=== PATIENT | female | born 1980 | race Caucasian/White ===

== ENCOUNTER 2023-06-12 11:39 | Emergency (ER) | payer OTHER, SELFPAY ==
[2023-06-12] VITALS (30 sets, daily range): BP systolic 104–147; BP diastolic 68–96; PULSE 61–105; RESP 10–33; O2SAT 95–98; BMI 45.4
--- NOTE | 2023-06-12 11:58 | ECG_ITS ---
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
--- NOTE | 2023-06-12 11:58 | ED_ITS ---
HPI - Chest Pain General Chief Complaint: Chest Pain Stated Complaint: CHEST PAIN Time Seen by Provider: 06/12/23 11:55 Source: patient Mode of arrival: walk-in History of Present Illness HPI narrative: 43-year-old female presents for chest pain. It's in the middle part of the chest and she's had it continuously for about three hours. It feels like a pressure. No injury or unusual activity and it doesn't seem to radiate. No fever or cough. Related Data Previous Rx's Medication Instructions Recorded esomeprazole magnesium 40 mg 40 mg PO DAILY 28 days #28 caps 06/12/23 capsule,delayed release (Nexium) Allergies Allergy/AdvReac Type Severity Reaction Status Date / Time promethazine [From Phenergan] Allergy Severe Verified 06/12/23 11:51 Review of Systems ROS Narrative A ten point review of systems is negative except as noted above. Exam Narrative Exam Narrative: Nurses note and vital signs reviewed and patient is not hypoxic. General: The patient appears uncomfortable. Skin: Warm, dry, no pallor noted. There is no rash noted. Head: Normocephalic, atraumatic Eye: Normal conjunctiva, no drainage Ears, Nose, Mouth, and Throat: oral mucosa is moist. Nares patent. Cardiovascular: Regular Rate and Rhythm Respiratory: Patient is in no distress, no accessory muscle use, lungs are clear to auscultation, no wheezing, rales or rhonchi Back: non-tender GI: soft and nontender Musculoskeletal: The patient has no evidence of calf tenderness, no pitting edema, symmetrical pulses noted bilaterally Neurological: A&O, normal speech Psychiatric: Cooperative Constitutional Vital Signs, click to edit/add: Last Vital Signs Pulse 105 H 06/12/23 14:10 Resp 20 06/12/23 14:10 BP 134/86 06/12/23 13:30 Pulse Ox 97 06/12/23 13:50 O2 Del Method Room Air 06/12/23 12:01 Course Vital Signs Vital signs: Vital Signs Pulse Rate 87 06/12/23 11:44 Respiratory Rate 18 06/12/23 11:44 Blood Pressure 141/88 06/12/23 11:44 Pulse Oximetry 97 06/12/23 11:44 Oxygen Delivery Method Room Air 06/12/23 11:44 Pulse Rate 105 H 06/12/23 14:10 Respiratory Rate 20 06/12/23 14:10 Blood Pressure 134/86 06/12/23 13:30 Pulse Oximetry 97 06/12/23 13:50 Oxygen Delivery Method Room Air 06/12/23 12:01 MDM - Chest Pain MDM Narrative Medical decision making narrative: her workup including two troponins is negative. I suspect that this may be esophageal and she'll be prescribed Nexium. There is no evidence of acute coronary syndrome and I do not have any clinical suspicion of pulmonary embolism. Treatment diagnosis and follow-up were discussed with the patient. Differential Diagnosis Differential diagnosis: Likely pneumothorax, unstable angina pectoris, atypical chest pain, st elevation myocardial infarction, costochondritis and chest pain Lab Data Attestation: I reviewed the patient's lab results. Labs: Lab Results 06/12/23 06/12/23 Range/Units 11:50 12:52 WBC 6.6 (4.0-11.0) 10^3/uL RBC 4.71 (4.20-5.40) 10^6/uL Hgb 11.6 L (12.0-16.0) g/dL Hct 37.8 (36.0-48.0) % MCV 80.3 L (81.0-99.0) fL MCH 24.6 L (26.7-34.0) pg MCHC 30.7 (29.9-35.2) g/dL RDW 18.1 H (11.0-15.0) % Plt Count 381 (150-450) 10^3/uL MPV 9.4 L (9.5-13.5) fL Neut % (Auto) 63.5 (43.0-75.0) % Lymph % (Auto) 24.3 (20.5-60.0) % [place] % (Auto) 7.3 (1.7-12.0) % Eos % (Auto) 4.0 (0.9-7.0) % Baso % (Auto) 0.6 (0.2-2.0) % Neut # (Auto) 4.2 (1.4-6.5) 10^3/uL Lymph # (Auto) 1.6 (1.2-3.8) 10^3/uL [place] # (Auto) 0.5 (0.3-0.8) 10^3/uL Eos # (Auto) 0.3 (0.0-0.7) 10^3/uL Baso # (Auto) 0.0 (0.0-0.1) 10^3/uL Abs Immat Gran (auto) 0.02 (0.00-0.03) 10^3/uL Imm/Tot Granulo (auto) 0.3 (0.0-0.5) % Sodium 137 (136-145) mmol/L Potassium 3.6 (3.5-5.1) mmol/L Chloride 102 (98-107) mmol/L Carbon Dioxide 26.8 (21.0-32.0) mmol/L Anion Gap 11.8 BUN 9.0 (7.0-18.0) mg/dL Creatinine 0.76 (0.55-1.02) mg/dL Est GFR ( Amer) >60 (>=60) Est GFR (Non-Af Amer) >60 (>=60) BUN/Creatinine Ratio 11.8 Glucose 142 H (74-106) mg/dL Calcium 8.7 (8.5-10.1) mg/dL Troponin I High Sens 7.8 7.2 (4.0-51.3) pg/mL Imaging Data Chest x-ray: Radiologist's impression: Procedure: XR chest 1V EXAM: XR chest 1V HISTORY: . CP . COMPARISON: None. TECHNIQUE: Single view of the chest FINDINGS: Heart and vascularity are unremarkable. Lungs are free of focal infiltrates. EKG leads overlie the chest. IMPRESSION: No acute heart or lung disease identified. Electronically authenticated by: ALLISON MENDEZ Date: 06/12/2023 12:33 ECG Data Attestation: I personally reviewed and interpreted this ECG as follows: (EKG on my interpretation shows normal sinus rhythm with no acute change and a rate of 85.) Heart Score History: Slightly/Non-Suspicious ECG: Normal Age: <45 years Risk Factors: 1 or 2 Risk Factors Troponin: <Normal Limit Total Heart Score Recommendations & Risks:: 1 Discharge Plan Discharge Chief Complaint: Chest Pain Clinical Impression: Chest pain Patient Disposition: Home, Self-Care Time of Disposition Decision: 15:05 Condition: Good Mode of Transportation: Private Vehicle Prescriptions / Home Meds: New esomeprazole magnesium [Nexium] 40 mg capsule,delayed release(DR/EC) 40 mg PO DAILY 28 Days Qty: 28 0RF Instructions: Chest Pain (ED) Stand Alone Forms: Portal Instructions Referrals: Physician,Non-Staff, MD [Primary Care Provider] - 1 week
--- NOTE | 2023-06-12 11:58 | XR_ITS ---
The [address] [address] Patient Name: BEAU CASILLAS MRN: [id number] date: 1980 Sex: F Assigned Patient Location: ER Current Patient Location: ED.MAIN Accession/Order Number: [id number] Exam Date: 06/12/2023 12:21 Report Date: 06/12/2023 12:33 At the request of: NINA RAMAN Procedure: XR chest 1V EXAM: XR chest 1V HISTORY: . CP . COMPARISON: None. TECHNIQUE: Single view of the chest FINDINGS: Heart and vascularity are unremarkable. Lungs are free of focal infiltrates. EKG leads overlie the chest. XR/XR chest 1V IMPRESSION: No acute heart or lung disease identified. Electronically authenticated by: ALLISON MENDEZ Date: 06/12/2023 12:33
[2023-06-12] MEDS: ASPIRIN 81 MG TAB.CHEW 324 MG PO (12:15)
[2023-06-12 12:16] LABS: Basophils Percent Auto 0.6 % (0.2-2.0); Eosinophils Absolute Auto 0.3 10^3/uL (0.0-0.7); Hematocrit 37.8 % (36.0-48.0); Hemoglobin 11.6 g/dL (12.0-16.0); Immature Granulocytes Abs Auto 0.02 10^3/uL (0.00-0.03); Immature Granulocytes Pct Auto 0.3 % (0.0-0.5); Lymphocytes Absolute Auto 1.6 10^3/uL (1.2-3.8); Lymphocytes Percent Auto 24.3 % (20.5-60.0); Mean Corpuscular HGB Conc 30.7 g/dL (29.9-35.2); Mean Corpuscular Hemoglobin 24.6 pg (26.7-34.0); Mean Corpuscular Volume 80.3 fL (81.0-99.0); Mean Platelet Volume 9.4 fL (9.5-13.5); Monocytes Absolute Auto 0.5 10^3/uL (0.3-0.8); Monocytes Percent Auto 7.3 % (1.7-12.0); Neutrophils Absolute Auto 4.2 10^3/uL (1.4-6.5); Neutrophils Percent Auto 63.5 % (43.0-75.0); Platelet Count 381 10^3/uL (150-450); Red Blood Count 4.71 10^6/uL (4.20-5.40); Red Cell Distribution Width 18.1 % (11.0-15.0); White Blood Count 6.6 10^3/uL (4.0-11.0)
[2023-06-12] MEDS: NITROGLYCERIN 0.4 MG BOTTLE PO (12:16)
[2023-06-12 12:35] LABS: Anion Gap 11.8; BUN Creatinine Ratio 11.8; Calcium 8.7 mg/dL (8.5-10.1); Carbon Dioxide 26.8 mmol/L (21.0-32.0); Chloride 102 mmol/L (98-107); Estimated GFR (African America >60 (>=60); Estimated GFR (Non-African Ame >60 (>=60); Glucose 142 mg/dL (74-106); Potassium 3.6 mmol/L (3.5-5.1); Sodium 137 mmol/L (136-145); Troponin I High Sensitivity 7.8 pg/mL (4.0-51.3)
[2023-06-12 13:19] LABS: Troponin I High Sensitivity 7.2 pg/mL (4.0-51.3)
[2023-06-12] MEDS: lidocaine HCL 15 ML, MAG HYDROX/ALUMINUM HYD/SIMETH 30 ML, HYOSCYAMINE SULFATE 0.25 MG PO (13:49)
[2023-06-12] MEDS: KETOROLAC TROMETHAMINE 30 MG/ML VIAL IVP (14:13)
== END 2023-06-12 15:25 | disposition home or self-care (01) ==
PROVIDERS: Emergency Provider Emergency Medicine
DX: R07.9 Chest pain, unspecified (principal)
CPT/HCPCS: 36415; 71045; 80048; 84484; 85025; 93005; 96374; 99285

== ENCOUNTER 2023-07-10 11:33 | Emergency (ER) | payer OTHER, SELFPAY ==
[2023-07-10 11:40] VITALS: BP 152/100; PULSE 84; RESP 18; TEMP 36.8; O2SAT 98; BMI 41.6
--- NOTE | 2023-07-10 14:20 | CT_ITS ---
The [address] [address] Patient Name: BEAU CASILLAS MRN: [facility]:[id number] date: 1980 Sex: F Assigned Patient Location: ER Current Patient Location: ER Accession/Order Number: [id number] Exam Date: 07/10/2023 15:11 Report Date: 07/10/2023 15:33 At the request of: JHONNY GALAN Procedure: CT abdomen pelvis wo con EXAM: CT abdomen pelvis wo con HISTORY: Left flank pain, pelvic pain COMPARISON: None TECHNIQUE: CT abdomen and CT pelvis studies were performed without the use of intravenous contrast. Multiple axial images were obtained. Reformatted coronal and sagittal images were obtained and reviewed. FINDINGS: Abdomen: Visualized lower lung castillo appear grossly unremarkable. Views of the liver and spleen fail to demonstrate evidence of focal mass in either organ. Patient is status post cholecystectomy. Pancreas and adrenal glands appear grossly unremarkable. Stomach appears grossly unremarkable. Bowel loops appear grossly unremarkable. Visualized vascular structures appear grossly intact. No evidence of adenopathy in the retroperitoneum. No obvious renal mass or obstructive uropathy. No evidence of renal or ureteral calculus. Pelvis: No evidence of ureteral or bladder calculus. No evidence of obstructive uropathy. No obvious bladder mass or wall thickening. Uterus appears grossly unremarkable. No obvious adnexal mass. Perirectal fat planes appear grossly intact. Bowel loops appear grossly unremarkable. Visualized vascular structures appear grossly intact. No evidence of adenopathy. The appendix is visualized and appears unremarkable. Mild degenerative changes in the visualized lower dorsal spine and the lumbar spine with more moderate changes at the lumbosacral junction level. CT/CT abdomen pelvis wo con IMPRESSION: CT abdomen and CT pelvis studies fail to demonstrate definite evidence of acute process. Electronically authenticated by: GARETH PAUL Date: 07/10/2023 15:33
--- NOTE | 2023-07-10 14:21 | ED_ITS ---
HPI - General Adult General Chief complaint: Urogenital-Female Stated complaint: ABDOMINAL PAIN Time Seen by Provider: 07/10/23 13:19 Source: patient Mode of arrival: walk-in Limitations: no limitations History of Present Illness HPI narrative: Patient is a 43-year-old female who presents to the emergency department for 3- day history of pelvic pressure, left low back pain. She states she has had some clear vaginal discharge but no vaginal bleeding. She has had a previous tubal ligation. She is not concerned for . She has had no fevers but does report nausea. No vomiting. She has had previous cholecystectomy, she has had pancreatitis in the past. She used ibuprofen yesterday without improvement. Pain is not worse with urination, no hematuria. Related Data Previous Rx's Medication Instructions Recorded esomeprazole magnesium 40 mg 40 mg PO DAILY 28 days #28 caps 06/12/23 capsule,delayed release (Nexium) dicyclomine 20 mg tablet 20 mg PO QID PRN abdominal pain 07/10/23 #12 tabs ketorolac 10 mg tablet 10 mg PO TID PRN pain #10 tabs 07/10/23 ondansetron 4 mg disintegrating 4 mg PO Q6H PRN nausea and 07/10/23 tablet vomiting #12 tabs Allergies Allergy/AdvReac Type Severity Reaction Status Date / Time promethazine [From Phenergan] Allergy Severe Verified 06/12/23 11:51 Review of Systems ROS Constitutional Denies: fever or chills Ears, nose, mouth, and throat Denies: throat pain or nasal congestion Cardiovascular Denies: chest pain Respiratory Denies: shortness of breath or cough Gastrointestinal Reports: abdominal pain and nausea; Denies: vomiting, diarrhea or constipation Genitourinary Reports: pelvic pain; Denies: painful urination or urinary frequency Musculoskeletal Reports: back pain; Denies: neck pain Integumentary/Breast Denies: rash Neurological Denies: headache PFSH PFSH Social History Smoking status: Current every day smoker Exam Narrative Exam Narrative: Gen.: Awake, alert, in no distress Head: Normocephalic, atraumatic ENT: Moist mucous membranes Respiratory: No respiratory distress, lungs clear bilaterally Cardio: Regular rate and rhythm Gastrointestinal: Abdomen is soft, nondistended, obese. Tender to palpation in the mid abdomen and bilateral pelvis, no guarding or rebound, no CVA tenderness Extremities: Moves extremities equally Psych: Normal mood and affect Neuro: No focal neuro deficit Skin: Warm, dry, intact Constitutional Vital Signs, click to edit/add: Last Vital Signs Temp 98.3 F 07/10/23 11:40 Pulse 78 07/10/23 15:45 Resp 16 07/10/23 15:45 BP 152/100 H 07/10/23 11:40 Pulse Ox 98 07/10/23 15:45 O2 Del Method Room Air 07/10/23 15:45 Course Vital Signs Vital signs: Vital Signs Temperature 98.3 F 07/10/23 11:40 Pulse Rate 84 07/10/23 11:40 Respiratory Rate 18 07/10/23 11:40 Blood Pressure 152/100 H 07/10/23 11:40 Pulse Oximetry 98 07/10/23 11:40 Oxygen Delivery Method Room Air 07/10/23 11:40 Temperature 98.3 F 07/10/23 11:40 Pulse Rate 78 07/10/23 15:45 Respiratory Rate 16 07/10/23 15:45 Blood Pressure 152/100 H 07/10/23 11:40 Pulse Oximetry 98 07/10/23 15:45 Oxygen Delivery Method Room Air 07/10/23 15:45 Medical Decision Making MDM Narrative Medical decision making narrative: Pelvic exam was performed at bedside with Chelly Biswas RN at bedside throughout the duration of the exam. Patient with a small amount of clear/white discharge. No cervical motion tenderness or pain out of proportion on exam. She was medicated with IV fluids, morphine, Toradol, Zofran. She continued to report moderate pain and was given additional Dilaudid. CT of the abdomen and pelvis with no evidence of acute abnormalities, pelvic ultrasound also with no evidence of torsion or other abnormalities. Wet prep is negative, the remainder of the pelvic cultures are pending at this time. Patient with stable labs. No evidence of UTI. 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 She is given a referral for the office. Return to the ER if symptoms change or worsen Medical Records Medical records reviewed: Yes I reviewed the patient's medical records Lab Data Lab results reviewed: Yes I reviewed the patient's lab results Labs: Lab Results 07/10/23 07/10/23 Range/Units 14:06 14:28 WBC 7.0 (4.0-11.0) 10^3/uL RBC 5.04 (4.20-5.40) 10^6/uL Hgb 12.0 (12.0-16.0) g/dL Hct 39.7 (36.0-48.0) % MCV 78.8 L (81.0-99.0) fL MCH 23.8 L (26.7-34.0) pg MCHC 30.2 (29.9-35.2) g/dL RDW 16.9 H (11.0-15.0) % Plt Count 380 (150-450) 10^3/uL MPV 9.5 (9.5-13.5) fL Neut % (Auto) 65.2 (43.0-75.0) % Lymph % (Auto) 24.0 (20.5-60.0) % [place] % (Auto) 7.0 (1.7-12.0) % Eos % (Auto) 3.1 (0.9-7.0) % Baso % (Auto) 0.6 (0.2-2.0) % Neut # (Auto) 4.6 (1.4-6.5) 10^3/uL Lymph # (Auto) 1.7 (1.2-3.8) 10^3/uL [place] # (Auto) 0.5 (0.3-0.8) 10^3/uL Eos # (Auto) 0.2 (0.0-0.7) 10^3/uL Baso # (Auto) 0.0 (0.0-0.1) 10^3/uL Abs Immat Gran (auto) 0.01 (0.00-0.03) 10^3/uL Imm/Tot Granulo (auto) 0.1 (0.0-0.5) % Sodium 137 (136-145) mmol/L Potassium 4.0 (3.5-5.1) mmol/L Chloride 102 (98-107) mmol/L Carbon Dioxide 24.3 (21.0-32.0) mmol/L Anion Gap 14.7 BUN 11.0 (7.0-18.0) mg/dL Creatinine 0.72 (0.55-1.02) mg/dL Est GFR ( Amer) >60 (>=60) Est GFR (Non-Af Amer) >60 (>=60) BUN/Creatinine Ratio 15.3 Glucose 127 H (74-106) mg/dL Calcium 8.8 (8.5-10.1) mg/dL Total Bilirubin 0.3 (0.2-1.0) mg/dL AST 23 (15-37) U/L ALT 36 (14-59) U/L Alkaline Phosphatase 68 (46-116) U/L Total Protein 7.7 (6.4-8.2) g/dL Albumin 3.9 (3.4-5.0) g/dL Globulin 3.8 g/dL Albumin/Globulin Ratio 1.0 Lipase 32.0 (16.0-77.0) U/L Urine Color Lt. yellow (YELLOW) Urine Clarity Sl cloudy (CLEAR) Urine pH 6.0 (5.0-9.0) Ur Specific [place] 1.025 (1.005-1.025) Urine Protein Negative (NEG/TRACE) mg/dL Urine Glucose (UA) Negative (NEGATIVE) mg/dL Urine Ketones Negative (NEGATIVE) mg/dL Urine Occult Blood Negative (NEGATIVE) Urine Nitrite Negative (NEGATIVE) Urine Bilirubin Negative (NEGATIVE) Urine Urobilinogen 0.2 (0.2-1.0) EU/dL Ur Leukocyte Esterase Negative (NEGATIVE) Urine RBC 0-2 (0-2) #/HPF Urine WBC 0-2 A (NONE SEEN) #/HPF Ur Squamous Epith Cells Moderate A (NONE/RARE) #/LPF Urine Crystals None seen (None Seen) #/HPF Urine Bacteria Large A (NONE SEEN) #/HPF Urine Casts None seen (NONE SEEN) #/LPF Urine Mucus Trace A (NONE SEEN) Ur Culture Indicated? Yes Urine HCG, Qual Negative (NEGATIVE) Imaging Data CT scan - abdomen: Attestation: I have reviewed the pertinent imaging results. US pelvis: Attestation: I have reviewed the pertinent imaging results. Discharge Plan Discharge Chief Complaint: Urogenital-Female Clinical Impression: Pelvic pain Patient Disposition: Home, Self-Care Time of Disposition Decision: 16:59 Condition: Good Prescriptions / Home Meds: New ketorolac 10 mg tablet 10 mg PO TID PRN (Reason: pain) Qty: 10 0RF dicyclomine 20 mg tablet 20 mg PO QID PRN (Reason: abdominal pain) Qty: 12 0RF ondansetron 4 mg tablet,disintegrating 4 mg PO Q6H PRN (Reason: nausea and vomiting) Qty: 12 0RF No Action esomeprazole magnesium [Nexium] 40 mg capsule,delayed release(DR/EC) 40 mg PO DAILY 28 Days Qty: 28 0RF Instructions: Pelvic Pain in Women (ED) Stand Alone Forms: Portal Instructions Referrals: Gómez Robbins DO [Physician] - As soon as possible Physician,Non-Staff, MD [Primary Care Provider] - 1 week
[2023-07-10 14:27] LABS: Bilirubin Urine NEGATIVE (NEGATIVE); Blood Urine NEGATIVE (NEGATIVE); Clarity Urine SL CLOUDY (CLEAR); Color Urine LT. YELLOW (YELLOW); Glucose Urine UA NEGATIVE (NEGATIVE); Ketones Urine NEGATIVE (NEGATIVE); Leukocyte Esterase Urine NEGATIVE (NEGATIVE); Nitrite Urine NEGATIVE (NEGATIVE); Protein Urine NEGATIVE (NEG/TRACE); Specific Gravity Urine 1.025 (1.005-1.025); Urobilinogen Urine 0.2 EU/dL (0.2-1.0)
[2023-07-10 14:29] LABS: HCG Qualitative Urine* NEGATIVE (NEGATIVE)
[2023-07-10 14:30] LABS: Urine Microscopic Indicated YES
[2023-07-10] MEDS: 0.9 % SODIUM CHLORIDE 1,000 ML 1000 ML IV (14:31)
[2023-07-10] MEDS: KETOROLAC TROMETHAMINE 30 MG/ML VIAL IVP (14:32)
[2023-07-10] MEDS: MORPHINE SULFATE 2 MG/ML SYRINGE 4 MG IV (14:33)
[2023-07-10] MEDS: ONDANSETRON PF 4 MG/2 ML VIAL IV (14:33)
[2023-07-10 14:36] LABS: Bacteria Urine LARGE #/HPF (NONE SEEN); Cast Seen? NONE SEEN #/LPF (NONE SEEN); Crystals Seen? None Seen #/HPF (None Seen); Mucus Urine TRACE (NONE SEEN); RBC Urine 0-2 #/HPF (0-2); Squamous Epithelial Cell Urine MODERATE #/LPF (NONE/RARE); Urine Culture Indicated YES; WBC Urine 0-2 #/HPF (NONE SEEN)
[2023-07-10 14:36] LABS: Basophils Percent Auto 0.6 % (0.2-2.0); Eosinophils Absolute Auto 0.2 10^3/uL (0.0-0.7); Eosinophils Percent Auto 3.1 % (0.9-7.0); Hematocrit 39.7 % (36.0-48.0); Immature Granulocytes Abs Auto 0.01 10^3/uL (0.00-0.03); Immature Granulocytes Pct Auto 0.1 % (0.0-0.5); Lymphocytes Absolute Auto 1.7 10^3/uL (1.2-3.8); Mean Corpuscular HGB Conc 30.2 g/dL (29.9-35.2); Mean Corpuscular Hemoglobin 23.8 pg (26.7-34.0); Mean Corpuscular Volume 78.8 fL (81.0-99.0); Mean Platelet Volume 9.5 fL (9.5-13.5); Monocytes Absolute Auto 0.5 10^3/uL (0.3-0.8); Neutrophils Absolute Auto 4.6 10^3/uL (1.4-6.5); Neutrophils Percent Auto 65.2 % (43.0-75.0); Platelet Count 380 10^3/uL (150-450); Red Blood Count 5.04 10^6/uL (4.20-5.40); Red Cell Distribution Width 16.9 % (11.0-15.0)
[2023-07-10 14:40] VITALS: O2SAT 95
[2023-07-10 15:22] LABS: Alanine Aminotransferase 36 U/L (14-59); Albumin Level 3.9 g/dL (3.4-5.0); Alkaline Phosphatase 68 U/L (46-116); Anion Gap 14.7; Aspartate Amino Transferase 23 U/L (15-37); BUN Creatinine Ratio 15.3; Bilirubin Total 0.3 mg/dL (0.2-1.0); Calcium 8.8 mg/dL (8.5-10.1); Carbon Dioxide 24.3 mmol/L (21.0-32.0); Chloride 102 mmol/L (98-107); Estimated GFR (African America >60 (>=60); Estimated GFR (Non-African Ame >60 (>=60); Globulin 3.8 g/dL; Glucose 127 mg/dL (74-106); Sodium 137 mmol/L (136-145); Total Protein 7.7 g/dL (6.4-8.2)
--- NOTE | 2023-07-10 15:41 | US_ITS ---
[address] [address] Patient Name: BEAU CASILLAS MRN: [id number] date: 1980 Sex: F Assigned Patient Location: ER Current Patient Location: ER Accession/Order Number: [id number] Exam Date: 07/10/2023 15:42 Report Date: 07/10/2023 16:48 At the request of: JHONNY GALAN Procedure: US pelvis transvaginal EXAMINATION: US pelvis transvaginal TECHNIQUE: Transvaginal sonography. Grayscale and color flow Doppler imaging. HISTORY: Pelvic pain. COMPARISON: CT scan 07/10/2023 FINDINGS: Uterus and cervix: Uterus measures 9.1 x 4.5 x 6.0 cm. No acute findings. Multiple nabothian cysts of the cervix measuring up to 14 mm. Endometrium: Thickness measures 11mm. Unremarkable homogeneous appearance of the endometrium. The ovaries not visualized due to overlying loops of small bowel. Adnexa: No adnexal mass lesion. Cul-de-sac: Normal, non or minimal free fluid likely physiologic. US/US pelvis transvaginal IMPRESSION: No acute pelvic pathology visualized. Electronically authenticated by: ZARINA PAYNE Date: 07/10/2023 16:48
[2023-07-10 15:45] VITALS: PULSE 78; RESP 16; O2SAT 98
[2023-07-10] MEDS: HYDROMORPHONE HCL 1 MG/ML CARTRIDGE IV (15:59)
[2023-07-10 17:17] VITALS: BP 124/90; PULSE 75; RESP 14; O2SAT 95
[2023-07-12 12:08] LABS: Neisseria gonorrhoeae, NAA Negative (Negative)
== END 2023-07-10 17:20 | disposition home or self-care (01) ==
PROVIDERS: Physician Assistant; Emergency Provider Emergency Medicine Emergency Medical Services
DX: R10.2 Pelvic and perineal pain (principal); Z90.49 Acquired absence of other specified parts of digestive tract; F17.210 Nicotine dependence, cigarettes, uncomplicated
CPT/HCPCS: 36415; 74176; 76830; 80053; 81001; 83690; 84703; 85025; 87086; 87210; 87491; 87591; 96374; 96375; 99285; J1170

== ENCOUNTER 2024-08-08 07:30 | Emergency (ER) | payer OTHER, SELFPAY ==
[2024-08-08 07:36] VITALS: BP 143/119; PULSE 100; TEMP 36.9; O2SAT 96; BMI 44.6
--- NOTE | 2024-08-08 07:40 | PC.NURSE ---
Pain to right upper and lower jaw, broken tooth to right lower jaw.
[2024-08-08] MEDS: OXYCODONE HCL/ACETAMINOPHEN 5MG/325MG 1 TAB PO (08:00)
--- NOTE | 2024-08-08 08:11 | ED_ITS ---
HPI - Dental/Oral General Chief complaint: Dental/Oral Stated complaint: dental pain Time Seen by Provider: 08/08/24 07:35 Source: patient Mode of arrival: walk-in Limitations: no limitations History of Present Illness HPI Narrative: 44-year-old female to the emergency department chief complaint of dental pain. Started over the last 48 hours. She reports that she has a fractured tooth. She has not reached out to a dentist yet. She denies any fever, sweats, chills. She denies any swelling. She reports the pain is not responding to Tylenol and ibuprofen at home. Teeth map: 2 1. Fractured tooth Related Data Home Medications ?Medication ?Instructions ?Recorded ?Confirmed famotidine 20 mg tablet 20 mg PO DAILY 08/08/24 08/08/24 metformin 500 mg tablet,extended 500 mg PO DAILY 08/08/24 08/08/24 release 24 hr omeprazole 40 mg capsule,delayed 40 mg PO BID 08/08/24 08/08/24 release Previous Rx's ?Medication ?Instructions ?Recorded esomeprazole magnesium 40 mg 40 mg PO DAILY 28 days #28 caps 06/12/23 capsule,delayed release (Nexium) dicyclomine 20 mg tablet 20 mg PO QID PRN abdominal pain 07/10/23 #12 tabs ketorolac 10 mg tablet 10 mg PO TID PRN pain #10 tabs 07/10/23 ondansetron 4 mg disintegrating 4 mg PO Q6H PRN nausea and 07/10/23 tablet vomiting #12 tabs oxycodone-acetaminophen 5 mg-325 1 tab PO Q6H PRN pain 2 days #8 08/08/24 mg tablet (Percocet) tabs penicillin V potassium 500 mg 500 mg PO Q6H 7 days #28 tabs 08/08/24 tablet Allergies Allergy/AdvReac Type Severity Reaction Status Date / Time promethazine (From Phenergan) Allergy Severe Confusion Verified 08/08/24 07:35 Review of Systems 2 ROS0 Status of ROS 10 or more systems reviewed and unremark able except as noted in history and below PFSH PFSH Social History Smoking status: Current every day smoker Little interest or pleasure in doing things: not at all Feeling down, depressed, or hopeless: not at all Exam Narrative Exam Narrative: VITALS: I have reviewed the triage vital signs. GENERAL: Well developed, well appearing adult in no acute distress. NEURO: Alert and oriented. Moves all extremities. Face is symmetric and expressive. EYES: PERRL. No scleral icterus or conjunctival injection. No discharge. HENT: Normocephalic, atraumatic. Hearing is grossly intact. Nares grossly patent and without discharge. Mucous membranes moist. Fractured tooth #30. Some gingival erythema. No discrete abscess. NECK: No JVD. Patient moves neck without restriction. No crepitus. No erythema warmth or swelling. EXTREMITIES: Symmetric muscle bulk. No joint swelling. No clubbing, cyanosis, or deformity. SKIN: Warm and dry. Normal turgor. No rash or lesions appreciated. PSYCH: Mood, affect, and interaction is appropriate to the setting. Constitutional Vital Signs, click to edit/add: Last Vital Signs Temp 98.5 F 08/08/24 07:36 Pulse 100 H 08/08/24 07:36 Resp 18 08/08/24 07:36 BP 143/119 H 08/08/24 07:36 Pulse Ox 96 08/08/24 07:36 O2 Del Method Room Air 08/08/24 07:36 Course Vital Signs Vital signs: Vital Signs Temperature 98.5 F 08/08/24 07:36 Pulse Rate 100 H 08/08/24 07:36 Respiratory Rate 18 08/08/24 07:36 Blood Pressure 143/119 H 08/08/24 07:36 Pulse Oximetry 96 08/08/24 07:36 Oxygen Delivery Method Room Air 08/08/24 07:36 Temperature 98.5 F 08/08/24 07:36 Pulse Rate 100 H 08/08/24 07:36 Respiratory Rate 18 08/08/24 07:36 Blood Pressure 143/119 H 08/08/24 07:36 Pulse Oximetry 96 08/08/24 07:36 Oxygen Delivery Method Room Air 08/08/24 07:36 MDM - Dental/Oral MDM Narrative Medical decision making narrative: 44-year-old female with what appears to be uncomplicated dental fracture with possible infection due to gingival erythema. There is no evidence of a deep space infection. No evidence of [place] angina. Short course of Percocet for pain. OARRS was reviewed. Recommended she continue using ibuprofen at home. Recommended Anbesol OTC. penicillin to cover for infection. She is instructed she needs to follow-up with a dentist for definitive care. Return precautions were discussed. All questions were answered. Patient was discharged home. Medical Records Attestation: I reviewed the patient's medical records. Discharge Plan Discharge Chief Complaint: Dental/Oral Clinical Impression: Fracture of tooth Patient Disposition: Home, Self-Care Time of Disposition Decision: 07:52 Condition: Good Mode of Transportation: Private Vehicle Prescriptions / Home Meds: New penicillin V potassium 500 mg tablet 500 mg PO Q6H 7 Days Qty: 28 0RF oxycodone-acetaminophen [Percocet] 5-325 mg tablet 1 tab PO Q6H PRN (Reason: pain) 2 Days Qty: 8 0RF No Action ketorolac 10 mg tablet 10 mg PO TID PRN (Reason: pain) Qty: 10 0RF dicyclomine 20 mg tablet 20 mg PO QID PRN (Reason: abdominal pain) Qty: 12 0RF ondansetron 4 mg tablet,disintegrating 4 mg PO Q6H PRN (Reason: nausea and vomiting) Qty: 12 0RF esomeprazole magnesium [Nexium] 40 mg capsule,delayed release(DR/EC) 40 mg PO DAILY 28 Days Qty: 28 0RF metformin 500 mg tablet extended release 24 hr 500 mg PO DAILY famotidine 20 mg tablet 20 mg PO DAILY omeprazole 40 mg capsule,delayed release(DR/EC) 40 mg PO BID Print Language: Pashto Referrals: Akilah Bowden, ASSEMBLING MACHINE OPERATOR [Primary Care Provider] - 1 week Discharge Date/Time: 08/08/24 08:09
== END 2024-08-08 08:09 | disposition home or self-care (01) ==
PROVIDERS: Emergency Provider Student in an Organized Health Care Education/Training Program; PCP Nurse Practitioner
DX: S02.5XXA Fracture of tooth (traumatic), initial encounter for closed fracture (principal); X58.XXXA Exposure to other specified factors, initial encounter; F17.200 Nicotine dependence, unspecified, uncomplicated
CPT/HCPCS: 99283

== ENCOUNTER 2024-08-11 21:01 | Emergency (ER) | payer OTHER, SELFPAY ==
--- OUTSIDE RECORDS SUMMARY | 2024-08-11 21:07 | XMS_ITS | CCD ---
Author Organization [facility] Care Team Providers Care Head Refrigeration Engineer Name Role Phone Cinthya RESPIRATORY TECH-SELF DEFENSE INSTRUCTOR, Stuart Primary Care Provider Unavailable Primary Care Provider UnavailYOJANA Moran Attending Unavailable Cinthya RESPIRATORY TECH - AUTOMOTIVE FINANCE MANAGER, Stuart Primary Care Provider ADELINE FLORENTINO Referring Unavailable CINTHYA, SEVEN Primary Care Unavailable ADELINE FLORENTINO Referring Unavailable CINTHYA, SEVEN Primary Care Unavailable ADELINE FLORENTINO Referring Unavailable CINTHYA, SEVEN Primary Care Unavailable GISELA CORDOVA Referring Unavailable CINTHYA, SEVEN Primary Care Unavailable CINTHYA, SEVEN Referring Unavailable CINTHYA, SEVEN Primary Care Unavailable MARLON TILLMAN Admitting Unavailable MARLON TILLMAN Attending Unavailable MARLON TILLMAN Referring Unavailable CINTHYA, SEVEN Primary Care Unavailable MARLON TILLMAN Attending Unavailable MARLON TILLMAN Referring Unavailable CINTHYA, SEVEN Primary Care Unavailable LILY SNELL Attending Unavail able CINTHYA, SEVEN Primary Care Unavailable ENMA PURCELL Attending Unavailable ENMA PURCELL Referring Unavailable CINTHYA, SEVEN Primary Care Unavailable ENMA PURCELL Attending Unavailable NINIKOFINA M Referring Unavailable CINTHYA, SEVEN Primary Care Unavailable CINTHYA, SEVEN Referring Unavailable CINTHYA, SEVEN Primary Care Unavailable CINTHYA, SEVEN Primary Care Unavailable LIUDMILA GARCIA Attending Unavailable CHARLIE YOUNG Attending Unavailable CHARLIE YOUNG Referring Unavailable CINTHYA, SEVEN Primary Care Unavailable CINTHYA, SEVEN Primary Care Unavailable ANGIE TREVIZO Attending Unavailable ANGIE TREVIZO Attending Unavailable ANGIE TREVIZO Referring Unavailable CINTHYA, SEVEN Primary Care Unavailable ANGIE TREVIZO Attending Unavailable JOSELINE ANGIE E Referring Unavailable CINTHYA, SEEVN Primary Care Unavailable ANDRES DUPONT Referring Unavailable CINTHYA, SEVEN Primary Care Unavailable ANDRES DUPONT Referring Unavailable ICNTHYA, SEVEN Primary Care Unavailable CINTHYA, SEVEN Referring Unavailable CINTHYA, SEVEN Primary Care Unavailable CINTHYA, SEVEN Referring Unavailable CINTHYA, SEVEN Primary Care Unavailable EKATERINA VILLEGAS Referring Unavailable CINTHYA, SEVEN Primary Care Unavailable GISELA TEJADA Referring Unavailable CINTHYA, SEVEN Primary Care Unavailable CINTHYA, SEVEN Primary Care Unavailable SUSHILA CHOW Attending Unavailable GISELA TEJADA Attending Unavailable GISELA TEJADA Referring Unavailable CINTHYA, SEVEN Primary Care Unavailable DIANNA, ELVI Referring Unavailable CINTHYA, SEVEN Primary Care Unavailable DIANNA, ELVI Referring Unavailable CINTHYA, SEVEN Primary Care Unavailable JANELL GARDNER Attending Unavailable CINTHYA, SEVEN Referring Unavailable CINTHYA, SEVEN Primary Care Unavailable ENMA PURCELL Attending Unavailable CINTHYA, SEVEN Referring Unavailable CINTHYA, SEVEN Primary Care Unavailable ANDRES DUPONT Attending Unavailable CINTHYA, SEVEN Referring Unavailable CINTHYA, SEVEN Primary Care Unavailable EKATERINA VILLEGAS Attending Unavailable CINTHYA, SEVEN Referring Unavailable CINTHYA, SEVEN Primary Care Unavailable CINTHYA, SEVEN Referring Unavailable CINTHYA, SEVEN Primary Care Unavailable CINTHYA, SEVEN Referring Unavailable CINTHYA, SEVEN Primary Care Unavailable DIANNA ELVI L Attending Unavailable CINTHYA, SEVEN Referring Unavailable CINTHYA, SEVEN Primary Care Unavailable DIANNA, ELVI L Attending Unavailable CINTHYA, SEVEN Referring Unavailable CINTHYA, SEVEN Primary Care Unavailable DIANNA, ELVI L Attending Unavailable CINTHYA, SEVEN Referring Unavailable CINTHYA, SEVEN Primary Care Unavailable Allergies Allergy Classification Reported Allergen(s) Allergy Type Date of Onset Reaction(s) Facility (16 sources) Promethazine; Translations: [PROMETHAZINE] Drug Allergy 03-26-2020 Other [facility] Medications Current Medications Medication Drug Class(es) Dates Sig (Normalized) Sig (Original) [id number] 200 actuat albuterol 0.09 mg/actuat metered dose inhaler (13 sources) beta2-Adrenergic Agonist Start: 12-15-2023 take 2 puff(s) by inhalation every four hours as needed for wheezing albuterol sulfate HFA (PROVENTIL;VENTOL IN;PROAIR) 108 (90 Base) MCG/ACT inhaler Inhale 2 puffs into the lungs every 4 hours as needed for Wheezing 0 12/15/2023 Active Start: 12-14-2023 take 2 puff(s) by in halation every four hours as needed for wheezing albuterol (PROVENTIL HFA;VENTOLIN HFA) 90 mcg/actuation inhaler Indications: Bronchitis with bronchospasm , Moderate persistent asthma without complication Inhale 2 puffs every 4 (four) hours as needed for wheezing. 18 g 11 12/14/2023 Active Start: 08-07-2022 take 2 puff(s) by in halation every four hours for wheezing albuterol 90 mcg/actuation inhaler Inhale 2 puffs every 4 hours if needed for wheezing. 08/07/2022 Active Start: 08-07-2022 take 2 puff(s) by in halation every four hours as needed for wheezing albuterol (PROVENTIL HFA;VENTOLIN HFA) 90 mcg/actuation inhaler Indications: Bronchitis with bronchospasm Inhale 2 puffs every 4 (four) hours as needed for wheezing. 18 g 0 08/07/2022 Active benzonatate 100 mg oral capsule (1 source) Non-narcotic Antitussive Start: 08-07-2022 take 1 capsule by mouth every eight hours benzonatate (TESSALON PERLES) 100 mg capsule Take 1 capsule (100 mg total) by mouth every 8 (eight) hours. 21 capsule 0 08/07/2022 Active bisacodyl 5 mg delayed release oral tablet (1 source) Stimulant Laxative Start: 11-01-2023 BISACODYL 5 MG EC tablet TAKE DIRECTED ON INSTRUCTIONAL SHEET FROM DOCTOR 0 11/01/2023 Active diazePAM 5 mg oral tablet (10 sources) Benzodiazepine Start: 01-26-2024 diazePAM (VALIUM) 5 mg tablet Indications: Claustrophobia One tab 30 minutes before MRI; may repeat up to 2 times for remaining MRI studies. Do not drive after use. 3 tablet 01/26/2024 Active famotidine 20 mg oral tablet (11 sources) Histamine-2 Receptor Antagonist Start: 12-26-2023 famotidine (PEPCID) 20 mg tablet Take 1 tablet (20 mg total) by mouth. 12/26/2023 Active 60 actuat formoterol fumarate 0.005 mg/actuat / mometasone furoate 0.2 mg/actuat metered dose inhaler (11 sources) Corticosteroid, beta2-Adrenergic Agonist Start: 12-14-2023 take 2 puff(s) by inhalation in the morning mometasone-formoter ol (DULERA) 200-5 mcg/actuation inhaler Indications: Moderate persistent asthma without complication Inhale 2 puffs in the morning and 2 puffs before bedtime. 13 g 11 12/14/2023 Active Start: 12-14-2023 take 2 puff(s) by in halation once daily in the morning, then take 2 puff(s) by inhalation once daily at bedtime DULERA 200-5 MCG/ACT inhaler INHALE 2 PUFFS EVERY MORNING AND 2 PUFFS EVERY NIGHT AT BEDTIME 0 12/14/2023 Active mineral oil 0.14 mg/mg / petrolatum 0.749 mg/mg / phenylephrine hydrochloride 0.0025 mg/mg rectal ointment (12 sources) alpha-1 Adrenergic Agonist Start: 10-09-2023 PREPARATION H 0.25-14-74.9 % ointment Insert 1 Application into the rectum every 6 (six) hours as needed. 10/09/2023 Active Start: 10-09-2023 PREPARATION H 0.25-14-74.9 % rectal ointment APPLY RECTALLY DIRECTED TWICE DAILY NEEDED 0 10/09/2023 Active omeprazole 40 mg delayed release oral capsule (12 sources) Proton Pump Inhibitor Start: 11-29-2023 take 1 capsule by mouth twice daily omeprazole (PRILOSEC) 40 MG delayed release capsule Take 1 capsule by mouth 2 times daily 0 11/29/2023 Active Start: 10-19-2023 omeprazole (Pr iLOSEC) 40 mg capsule Take 2 capsules (80 mg total) by mouth. 10/19/2023 Active Start: 10-19-2023 omeprazole (Pr iLOSEC) [address] capsule Take 1 capsule (40 mg) by mouth. 10/19/2023 Active ondansetron 8 mg oral tablet (7 sources) Serotonin-3 Receptor Antagonist take 1 tablet by mouth every eight hours as needed for nausea and vomiting ondansetron (ZOFRAN) 8 mg tablet Take 1 tablet (8 mg total) by mouth every 8 (eight) hours as needed for nausea or vomiting. Active pantoprazole 40 mg delayed release oral tablet (1 source) Proton Pump Inhibitor Start: 11-22-19 take 1 tablet by mouth once daily before mealtime pantoprazole (ProtoNix) 40 mg EC tablet Take 1 tablet (40 mg) by mouth once daily in the morning. Take before meals. 11/21/2022 Active polyethylene glycol 3350 76972 mg powder for oral solution (2 sources) Osmotic Laxative Start: 10-09-19 polyethylene glycol (GLYCOLAX) 17 GM/SCOOP powder PROCHAMBER spacer (10 sources) Start: 12-14-19 PROCHAMBER spacer USE DIRECTED WITH INHALER 12/14/2023 Active psyllium 400 mg oral capsule (12 sources) Start: 11-02-19 REGULOID, PSYLLIUM HUSK, 0.4 gram capsule Take 0.52 g by mouth. 11/02/2023 Active Start: 11-02-2023 take 1 capsule by mo uth once daily in the morning REGULOID 0.52 g capsule Take 1 capsule by mouth every morning 0 11/02/2023 Active Start: 11-01-2023 take 1 capsule by mo uth once daily psyllium (Metamucil) 0.52 gram capsule Take 1 capsule (0.52 g) by mouth once daily. 11/01/2023 Active Spacer/Aero-Holding Chambers ([facility]) BANG (1 source) Start: 12-14-2023 Spacer/Aero-Holding Chambers ([facility]) BANG USE DIRECTED WITH INHALER 0 12/14/2023 Active 7 actuat umeclidinium 0.0625 mg/actuat dry powder inhaler (11 sources) Anticholinergic Start: 12-14-2023 take 1 puff(s) by inhalation in the morning umeclidinium (INCRUSE ELLIPTA) 62.5 mcg/actuation blister with device Indications: Moderate persistent asthma without complication Inhale 1 puff in the morning. 30 each 11 12/14/2023 Active Start: 12-14-2023 take 1 puff(s) by mo uth in the morning INCRUSE ELLIPTA 62.5 MCG/ACT inhaler INHALE 1 PUFF BY MOUTH IN THE MORNING 0 12/14/2023 Active Completed/Discontinued Medications Medication Drug Class(es) Dates Sig (Normalized) Sig (Original) ferrous sulfate 325 mg oral tablet (10 sources) End: 07-09-2024 ferrous sulfate 325 (65 FE) mg tablet Take 1 tablet (325 mg total) by mouth. 07/09/2024 Discontinued gabapentin 300 mg oral capsule (11 sources) Anti-epileptic Agent Start: 05-31-2024 End: 05-31-2025 take 1 capsule by mouth three times daily gabapentin (NEURONTIN) 300 mg capsule Indications: Numbness Take 1 capsule (300 mg total) by mouth 3 (three) times a day. 90 capsule 05/31/2024 07/09/2024 Discontinued Start: 11-17-2023 End: 12-07-2024 gabapentin (NEURONTIN) 100 m g capsule 11/17/2023 05/31/2024 Discontinued Problems Active Problems Problem Classification Problem Date Documented Da te Episodic/Chronic Anxiety disorders (3 sources) Mixed anxiety and depressive disorder; Translations: [Anxiety disorder, unspecified] Onset: 4 06-19-2024 Chronic Asthma (2 sources) Moderate persistent asthma, uncomplicated; Translations: [Moderate persistent asthma, uncomplicated] Onset: 4 Chronic Cataract (3 sources) Cataract of right eye; Translations: [Unspecified cataract] Onset: 4 11-17-2023 Chronic Conditions associated with dizziness or vertigo (3 sources) Vertigo; Translations: [Dizziness and giddiness] Onset: 4 11-17-2023 Episodic Esophageal disorders (2 sources) Gastroesophageal reflux disease without esophagitis; Translations: [Gastro-esophageal reflux disease without esophagitis] Onset: 4 11-17-2023 Chronic Essential hypertension (1 source) Essential hypertension; Translations: [Essential (primary) hypertension] 06-04-2024 Chronic Gastritis and duodenitis (1 source) Chronic superficial gastritis without bleeding; Translations: [Chronic superficial gastritis without bleeding] Onset: 4 Chronic Headache; including migraine (1 source) Other migraine, not intractable, without status migrainosus; Translations: [Other migraine, not intractable, without status migrainosus] Onset: 4 Chronic Headache; including migraine (1 source) Headache; including migraine Onset: 4 Menstrual disorders (1 source) Dysmenorrhea; Translations: [Dysmenorrhea, unspecified] 07-09-2024 Chronic Multiple sclerosis (3 sources) Multiple sclerosis; Translations: [Multiple sclerosis] Onset: 4 11-17-2023 Chronic Nausea and vomiting (1 source) Nausea with vomiting, unspecified; Translations: [Nausea with vomiting, unspecified] Onset: 4 Episodic Other female genital disorders (3 sources) Abnormal uterine bleeding; Translations: [Abnormal uterine and vaginal bleeding, unspecified] 06-12-2024 Chronic Other female genital disorders (2 sources) Other specified abnormal uterine and vaginal bleeding; Translations: [Other specified abnormal uterine and vaginal bleeding] Onset: 4 Chronic Other female genital disorders (2 sources) Abnormal uterine and vaginal bleeding, unspecified; Translations: [Abnormal uterine and vaginal bleeding, unspecified] Onset: 4 Chronic Other female genital disorders (1 source) Vaginal lesion; Translations: [Other specified noninflammatory disorders of vagina] 06-12-2024 Episodic Other female genital disorders (2 sources) Other specified noninflammatory disorders of vagina; Translations: [Other specified noninflammatory disorders of vagina] Onset: 4 Episodic Other gastrointestinal disorders (1 source) Diarrhea, unspecified; Translations: [Diarrhea, unspecified] Onset: Episodic Other gastrointestinal disorders (1 source) Personal history of other diseases of the digestive system; Translations: [Personal history of other diseases of the digestive system] Onset: 4 Episodic Other nervous system disorders (1 source) Polyneuropathy; Translations: [Polyneuropathy, unspecified] 11-17-2023 Chronic Other nervous system disorders (2 sources) Polyneuropathy, unspecified; Translations: [Polyneuropathy, unspecified] Onset: 4 Chronic Other nervous system disorders (1 source) Impairment of balance; Translations: [Other abnormalities of gait and mobility] 11-17-2023 Episodic Other nervous system disorders (2 sources) Other abnormalities of gait and mobility; Translations: [Other abnormalities of gait and mobility] Onset: 4 Episodic Other nervous system disorders (2 sources) Numbness; Translations: [Anesthesia of skin] 05-31-2024 Episodic Other nervous system disorders (2 sources) Anesthesia of skin; Translations: [Anesthesia of skin] Onset: 4 Episodic Other nutritional; endocrine; and metabolic disorders (4 sources) Body mass index 40+ - severely obese; Translations: [Morbid (severe) obesity due to excess calories] Onset: 4 06-19-2024 Chronic Residual codes; unclassified (1 source) Obstructive sleep apnea (adult) (pediatric); Translations: [Obstructive sleep apnea (adult) (pediatric)] Onset: 4 Chronic Screening and history of mental health and substance abuse codes (2 sources) Standardized adult depression screening tool completed ; Translations: [Encounter for screening for depression] Onset: 4 06-19-2024 Episodic Substance-related disorders (1 source) Tobacco smoking behavior - finding; Translations: [Nicotine dependence, unspecified, uncomplicated] 06-04-2024 Chronic Unclassified (1 source) Esophagitis, unspecified without bleeding; Translations: [Esophagitis, unspecified without bleeding] Onset: 4 Unclassified (1 source) GERD/Rectal bleed Onset: 4 Unclassified (1 source) EMB/Endosee Onset: 4 Unclassified (1 source) Gynecologic Exam Onset: 4 Unclassified (1 source) Menstrual Problem Onset: 4 Unclassified (1 source) New Patient Onset: 4 Past or Other Problems Problem Classification Problem Date Documented Da te Episodic/Chronic Abdominal pain (20 sources) Epigastric pain; Translations: [Epigastric pain] Onset: 10-21-2020 10-21-2020 Episodic Acute bronchitis (2 sources) Acute bronchitis, unspecified; Translations: [Acute bronchitis, unspecified] Onset: 12-14-2023 Episodic Administrative/social admission (7 sources) Patient encounter status; Translations: [Persons encountering health services in other specified circumstances] Onset: 10-21-2020 10-21-2020 Episodic Biliary tract disease (20 sources) Biliary colic; Translations: [Calculus of bile duct without cholangitis or cholecystitis without obstruction] Onset: 09-26-2020 09-26-2020 Episodic Gastrointestinal hemorrhage (2 sources) Hemorrhage of rectum and anus; Translations: [Hemorrhage of anus and rectum] Onset: 11-01-2023 11-17-2023 Episodic Hemorrhoids (3 sources) Hemorrhoids; Translations: [Unspecified hemorrhoids] Onset: 11-01-2023 11-17-2023 Episodic Mood disorders (11 sources) Mood disorders Onset: 10-23-2020 Resolved: 06-19-2024 10-23-2020 Nonmalignant breast conditions (1 source) Mastodynia; Translations: [Mastodynia] Onset: 03-05-2024 Episodic Other and unspecified benign neoplasm (1 source) Polyp of colon; Translations: [Polyp of colon] Onset: 11-20-2023 Episodic Other gastrointestinal disorders (1 source) Change in bowel habit; Translations: [Change in bowel habit] Onset: 11-01-2023 Episodic Other injuries and conditions due to external causes (1 source) Foreign body in vagina Onset: 01-03-2024 Episodic Other lower respiratory disease (2 sources) Shortness of breath; Translations: [Shortness of breath] Onset: 12-13-2023 Episodic Other lower respiratory disease (1 source) Shortness of breath Onset: 12-14-2023 Episodic Other screening for suspected conditions (not mental disorders or infectious disease) (5 sources) Magnetic resonance imaging of brain abnormal; Translations: [Other abnormal findings on diagnostic imaging of central nervous system] Onset: 12-13-2023 06-04-2024 Episodic Pancreatic disorders (not diabetes) (12 sources) Pancreatitis; Translations: [Acute pancreatitis without necrosis or infection, unspecified] Onset: 10-09-2020 11-15-2020 Episodic Substance-related disorders (11 sources) Opioid withdrawal; Translations: [Opioid use, unspecified with withdrawal] Onset: 11-15-2020 11-15-2020 Episodic Unclassified (4 sources) Onset: 06-19-2024 06-19-2024 Results Test Name Value Interpretation Reference Range Facility Surgical Pathologyon Surgical Pathology Normal [facility] Comment on above: Result Comment: [facility] [address] [place] [address] Surgical Pathology Consultation Patient Name:RAYA GONZALES:1980 (Age: 44)Gender:FTaken:4Reported:4Physician(s):Elvi Chapman M.D. ([phone])Copy To: Rec. #:[id number]: #[id number] Final Pathologic Diagnosis 1. Endocervix - ECC: - Benign surface endocervical lining with focal squamous metaplasia (no dysplasia or neoplasia) 2. Endometrium - biopsy: - Mildly disordered proliferative endometrium (no polyps, hyperplasia or neoplasia) Report Electronically Signed [facility]/07/26/2024Emanuel Islas MD Interpretation [place] [address], License number: [id number]. Clinical History Dysfunctional uterine bleeding (DUB) N93.8. Gross Description 1. Received in formalin labeled VINNY, ECC is a plastic wired brush with robles-brown soft tissue fragments admixed with hemorrhagic and mucoid material, 2.7 x 1.2 x 0.2 cm in aggregate. The specimen is filtered and entirely submitted in a single cassette. (1, ns, [id number],m2) DM. 2. Received in formalin labeled VINNY, EMB robles-brown soft tissue fragments and base with hemorrhagic and mucoid material, 2.7 x 2.3 x 0.3 cm in aggregate. The specimen is filtered and entirely submitted in a single cassette. (1, ns, [id number],m2) DM. Fixation Time: Tissue removed from patient: 1945 Time specimen placed in formalin: 1945 Cold ischemic time: Less than 1 minute Total fixation time: 14-1/2 hours /07/16/2024NS Specimen(s) Received 1: Endocervical curettings 2: Endometrial biopsy Fee Codes(s): 1; 21537 2; 92895 CBC without diffon Erythrocyte distribution width (RBC) [Ratio] 16.8 % High 11.5 - 15.0 % [facility] Hematocrit (Bld) [Volume fraction] 43.3 % 35 - 47 % [facility] Hemoglobin (Bld) [Mass/Vol] 13.8 g/dL 11.7 - 15.5 g/dL [facility] Interpretation and review of laboratory results Abnormal [facility] MCH (RBC) [Entitic mass] 24 pg Low 27 - 34 pg [facility] MCHC (RBC) [Mass/Vol] 32 g/dL 32 - 36 g/dL [facility] MCV (RBC) [Entitic vol] 75 fL Low 80 - 100 fL [facility] Platelet mean volume (Bld) [Entitic vol] 8 fL 7 - 12 fL [facility] Platelets (Bld) [#/Vol] 382 10*3/uL [facility] RBC (Bld) [#/Vol] 5.77 10*6/uL High [facility] WBC corrected for nucl RBC Auto (Bld) [#/Vol] 9 [facility] COMPLETE BLOOD COUNTon 07-09 Erythrocyte distribution width (RBC) [Ratio] 16.8 % High 11.5-15.0 [facility] Comment on above: Performed By: #### Gino HARRIS CMP, 16272-4, THYR #### [facility] ([id number]) [address], [address] [place] [address] Hematocrit (Bld) [Volume fraction] 43.3 % Normal 35-47 [facility] Comment on above: Performed By: #### Gino HARRIS CMP, 55332-7, THYR #### [facility] ([id number]) [address], [address] [place] [address] Hemoglobin (Bld) [Mass/Vol] 13.8 g/dL Normal 11.7-15.5 [facility] Comment on above: Performed By: #### Gino HARRIS CMP, 66707-3, THYR #### [facility] ([id number]) [address], [address] [place] [address] MCH (RBC) [Entitic mass] 24.0 pg Low 27-34 [facility] Comment on above: Performed By: #### Gino AHRRIS CMP, 03499-7, THYR #### [facility] ([id number]) [address], [address] [place] [address] MCHC (RBC) [Mass/Vol] 32.0 g/dL Normal 32-36 [facility] Comment on above: Performed By: #### Gino HARRIS CMP, 31265-7, THYR #### [facility] ([id number]) [address], [address] [place] [address] MCV (RBC) [Entitic vol] 75 fL Low 80-100 [facility] Comment on above: Performed By: #### Gino HARRIS CMP, 91314-3, THYR #### [facility] ([id number]) [address], [address] [place] [address] Platelet mean volume (Bld) [Entitic vol] 8.0 fL Normal 7-12 [facility] Comment on above: Performed By: #### Gino HARRIS CMP, 40672-1, THYR #### [facility] ([id number]) [address], [address] [place] [address] Platelets (Bld) [#/Vol] 382 10*3/uL Normal 150-450 [facility] Comment on above: Performed By: #### Gino HARRIS CMP, 75358-1, THYR #### [facility] ([id number]) [address], [address] [place] [address] RBC COUNT 5.77 X10E12/L High 3.80-5.20 [facility] Comment on above: Performed By: #### Gino HARRIS CMP, 56329-8, THYR #### [facility] ([id number]) [address] [address] [place] [address] WBC (Bld) [#/Vol] 9.0 10*3/uL Normal 4.0-11.0 [facility] Comment on above: Performed By: #### Gino HRARIS CMP, 06028-0, THYR #### [facility] ([id number]) [address], [address] [place] [address] FREE T4on 12-10-2024 Free T4 [Mass/Vol] 0.88 ng/dL Normal 0.61-1.60 [facility] Comment on above: Result Comment: NEW REFERENCE RANGE FOR PEDIATRIC PATIENTS Performed By: #### Gino HARRIS, [facility], 41426-9, THYR #### [facility] ([id number]) [address] [place] [address] Follicle stimulating hormone on 07-09-2024 Follitropin Qn 6.9 m[IU]/mL mIU/mL [facility] [employer] [facility] Comment on above: NORMAL FEMALE Luteal 1.8-5.1 mIU/mL Follicular 3.8-8.8 mIU/mL Mid Cycle 4.5-22.5 mIU/mL Post [place] 16.7-113.6 mIU/mL Follitropin Qnon 07-09-[address] [facility] [employer] [facility] FOLLICLE STIM HORMONE 6.9 mIU/mL Normal [facility] Comment on above: Result Comment: NORMAL FEMALE Luteal 1.8-5.1 mIU/mL Follicular 3.8-8.8 mIU/mL Mid Cycle 4.5-22.5 mIU/mL Post Sandhy[place] 16.7-113.6 mIU/mL Performed By: #### Gino HARRIS, [facility] [facility], [address]-3, THYR #### [facility] ([id number]) [address], [address] [place] [address] Free T4 [Mass/Vol]on [address] [facility] [employer] [facility] HCG.beta subunit IA 3rd IS Q non 07-09-2024 HCG.beta subunit Qn mIU/mL [facility] [employer] [facility] Comment on above: NEW REFERENCE RANGE WEEKS (SINCE LMP) MIU/mL 3 WEEKS 5 - 50 4 WEEKS 5 - 426 5 WEEKS 18 - 7,340 6 WEEKS 1,080 - 56,500 7-8 WEEKS 7,650 - 229,000 9-12 WEEKS 25,700 - 288,000 13-16 WEEKS 13,300 - 254,000 17-24 WEEKS 4,060 - 165,400 25-40 WEEKS 3,640 - 117,000 MALES AND NON- FEMALES - <5 MIU/mL This test has been FDA approved for use in only. Elevated levels are not necessarily diagnostic for trophoblastic or nontrophoblastic neoplasms. [facility] SERUM B HCG,3RD I.S. <5 Normal [facility] Comment on above: Result Comment: NEW REFERENCE RANGE WEEKS (SINCE LMP) MIU/mL 3 WEEKS 5 - 50 4 WEEKS 5 - 426 5 WEEKS 18 - 7,340 6 WEEKS 1,080 - 56,500 7-8 WEEKS 7,650 - 229,000 9-12 WEEKS 25,700 - 288,000 13-16 WEEKS 13,300 - 254,000 17-24 WEEKS 4,060 - 165,400 25-40 WEEKS 3,640 - 117,000 MALES AND NON- FEMALES - <5 MIU/mL This test has been FDA approved for use in only. Elevated levels are not necessarily diagnostic for trophoblastic or nontrophoblastic neoplasms. Performed By: #### C , [facility], [address]59-1, THYR #### [facility] ([id number]) [address], [address] [place] [address] Luteinizing hormoneon 2023 Lutropin Qn 2.6 m[IU]/mL mIU/mL [facility] Comment on above: NORMAL FEMALE Follicular 2.1-10.9 mIU/mL Mid Cycle 19.2-103 mIU/mL Luteal 1.2-12.9 mIU/mL Post Sandhya 10.9-58.6 mIU/mL Lutropin Qnon 07-09-2024 [facility] LUTEINIZING HORMONE 2.6 mIU/mL Normal [facility] Comment on above: Result Comment: NORMAL FEMALE Follicular 2.1-10.9 mIU/mL Mid Cycle 19.2-103 mIU/mL Luteal 1.2-12.9 mIU/mL Post Collins 10.9-58.6 mIU/mL Performed By: #### Gino HARRIS [facility], [address]75-0, THYR #### [facility] ([id number]) [address] [address], [facility] [address] [place] [address] Prolactinon 07-09-2024 Prolactin [Mass/Vol] 25.4 ng/mL 3.3 - 2 6.7 ng/mL [facility] Prolactin [Mass/Vol]on 07-09 [facility] PROLACTIN 25.4 ng/mL Normal 3.3-26.7 [facility] Comment on above: Performed By: #### Gino HARRIS [facility], [address]3279-1, THYR #### [facility] ([id number]) [address] [address], [facility] [address] [place] [address] T4, freeon 07-09-2024 Free T4 [Mass/Vol] 0.88 ng/dL 0.61 - 1. 60 ng/dL [facility] Comment on above: NEW REFERENCE RANGE FOR PEDIATRIC PATIENTS TSHon 07-09-2024 TSH Qn 3.82 m[IU]/L [facility] Comment on above: NEW REFERENCE RANGE FOR PEDIATRIC PATIENTS TSH Qnon 07-09-2024 [facility] TSH 3.82 uIU/mL Normal 0.49-4.67 [facility] Comment on above: Result Comment: NEW REFERENCE RANGE FOR PEDIATRIC PATIENTS Performed By: #### C LELIA HARRIS, 58434-3, THYR #### [facility] ([id number]) [address] [place] [address] US PELVIC WITH TRANSVAGINALo n 06-24-2024 US PELVIC WITH TRANSVAGINAL US PELVIC WITH TRANSVAGINAL HISTORY: A 44-year-old female with the history of the abnormal uterine bleeding. TECHNIQUE: Multiple real-time images of the pelvis are obtain by using transabdominal and transvaginal approaches. Color Doppler study is performed. COMPARISON: Comparison is made with the CT scan of the abdomen and pelvis of 06/21/2024. FINDINGS: Uterus is anteverted. Uterus measures 8.5 x 4.7 x 6.1 cm. Endometrial echo stripe thickness measures 16 mm. There are nabothian shape in the cervical portion of the uterus. Right ovary measures 2.9 x 1.6 x 1.9 cm. Left ovary measures 2.8 x 1.8 x 1.8 cm. Both ovaries are normal. No evidence of adnexal mass is identified. Color Doppler study reveals presence of the color Doppler flow without evidence of torsion. No free fluid is seen in the cul-de-sac. IMPRESSION: * Normal size uterus with thickened endometrial echo stripe. There are nabothian cysts in the cervical portion of the uterus. * Normal ovaries. No evidence of adnexal mass or ovarian torsion. * No free fluid in the cul-de-sac. Finalized by Martin Valero MD on 06/24/2024 7:12 PM Normal [facility] CBC AND AUTO DIFFon 06-21-20 24 ABSOLUTE BASOPHIL 0.1 X10E9/L Normal 0.0-0.2 [facility] Comment on above: Performed By: #### C LELIA HARRIS, 39179-8, THYR #### [facility] ([id number]) [address] [place] [address] ABSOLUTE NEUTROPHIL 3.7 X10E9/L Normal 1.5-6.6 [facility] Comment on above: Performed By: #### C STEVEN, CMP, 75452-3, THYR #### [facility] ([id number]) [address], [address] [place] [address] Basophils/100 WBC (Bld) 0.9 % Normal [facility] Comment on above: Performed By: #### C BC, CMP, 78791-9, THYR #### [facility] ([id number]) [address], [address] [place] [address] Eosinophils (Bld) [#/Vol] 0.3 10*3/uL Normal 0.0-0.4 [facility] Comment on above: Performed By: #### Gino BC, CMP, 29804-4, THYR #### [facility] ([id number]) [address], [address] [place] [address] Eosinophils/100 WBC (Bld) 4.2 % Normal [facility] Comment on above: Performed By: #### Gino HARRIS, CMP, 14198-2, THYR #### [facility] ([id number]) [address], [address] [place] [address] Erythrocyte distribution width (RBC) [Ratio] 16.0 % High 11.5-15.0 [facility] Comment on above: Performed By: #### Gino BC CMP, 93989-5, THYR #### [facility] ([id number]) [address], [address] [place] [address] Hematocrit (Bld) [Volume fraction] 37.6 % Normal 35-47 [facility] Comment on above: Performed By: #### C BC, CMP, 78458-9, THYR #### [facility] ([id number]) [address], [address] [place] [address] Hemoglobin (Bld) [Mass/Vol] 12.0 g/dL Normal 11.7-15.5 [facility] Comment on above: Performed By: #### C STEVEN [facility], 70749-0, THYR #### [facility] ([id number]) [address], [address] [place] [address] Lymphocytes (Bld) [#/Vol] 1.9 10*3/uL Normal 1.0-3.5 [facility] Comment on above: Performed By: #### Gino HARRIS [facility], 12894-3, THYR #### [facility] ([id number]) [address], [address] [place] [address] Lymphocytes/100 WBC (Bld) 29.8 % Normal [facility] Comment on above: Performed By: #### Gino HARRIS [facility], 58243-6, THYR #### [facility] ([id number]) [address] [place] [address] MCH (RBC) [Entitic mass] 24.2 pg Low 27-34 [facility] Comment on above: Performed By: #### Gino HARRIS [facility], 02276-3, THYR #### [facility] ([id number]) [address], [address] [place] [address] MCHC (RBC) [Mass/Vol] 31.8 g/dL Low 32-36 [facility] Comment on above: Performed By: #### Gino HARRIS [facility], 95268-4, THYR #### [facility] ([id number]) [address] [place] [address] MCV (RBC) [Entitic vol] 76 fL Low 80-100 [facility] Comment on above: Performed By: #### Gino HARRIS CMP, 79388-4, THYR #### [facility] ([id number]) [address], [address] [place] [address] Monocytes (Bld) [#/Vol] 0.5 10*3/uL Normal 0-0.9 [facility] Comment on above: Performed By: #### C STEVEN, CMP, 57155-6, THYR #### [facility] ([id number]) [address], [address] [place] [address] Monocytes/100 WBC (Bld) 7.9 % Normal [facility] Comment on above: Performed By: #### Gino HARRIS, CMP, 14255-7, THYR #### [facility] ([id number]) [address] [place] [address] Neutrophils/100 WBC (Bld) 57.2 % Normal [facility] Comment on above: Performed By: #### Gino HARRIS, CMP, 56106-7, THYR #### [facility] ([id number]) [address], [address] [place] [address] Platelet mean volume (Bld) [Entitic vol] 7.6 fL Normal 7-12 [facility] Comment on above: Performed By: #### Gino HARRIS, CMP, 60043-8, THYR #### [facility] ([id number]) [address], [address] [place] [address] Platelets (Bld) [#/Vol] 408 10*3/uL Normal 150-450 [facility] Comment on above: Performed By: #### Gino HARRIS, CMP, 28308-1, THYR #### [facility] ([id number]) [address], [address] [place] [address] RBC COUNT 4.95 X10E12/L Normal 3.80-5.20 [facility] Comment on above: Performed By: #### Gino BC, CMP, 59572-3, THYR #### [facility] ([id number]) [address], [address] [place] [address] WBC (Bld) [#/Vol] 6.4 10*3/uL Normal 4.0-11.0 [facility] Comment on above: Performed By: #### C BC, CMP, 30160-8, THYR #### [facility] ([id number]) [address], [address] [place] [address] COMPREHENSIVE METABOLIC PANE Toribio 06-21-2024 Albumin [Mass/Vol] 4.1 g/dL Normal 3.2-5.3 [facility] Comment on above: Performed By: #### Gino HARRIS CMP, 13027-2, THYR #### [facility] ([id number]) [address], [address] [place] [address] ALP [Catalytic activity/Vol] 71 U/L Normal 39-130 [facility] Comment on above: Performed By: #### Gino HARRIS CMP, 23062-5, THYR #### [facility] ([id number]) [address], [address] [place] [address] ALT [Catalytic activity/Vol] 44 U/L High 0-31 [facility] Comment on above: Performed By: #### Gino HARRIS CMP, 93377-4, THYR #### [facility] ([id number]) [address], [address] [place] [address] Anion gap [Moles/Vol] 9 mmol/L Normal 5-15 [facility] Comment on above: Performed By: #### Gino HARRIS CMP, 34527-6, THYR #### [facility] ([id number]) [address], [address] [place] [address] AST [Catalytic activity/Vol] 34 U/L Normal 0-41 [facility] Comment on above: Performed By: #### Gino HARRIS CMP, 16959-6, THYR #### [facility] ([id number]) [address], [address] [place] [address] Bilirubin [Mass/Vol] 0.5 mg/dL Normal 0.3-1.2 [facility] Comment on above: Performed By: #### Gino HARRIS CMP, 31735-0, THYR #### [facility] ([id number]) [address], [address] [place] [address] Calcium [Mass/Vol] 9.1 mg/dL Normal 8.5-10.5 [facility] Comment on above: Performed By: #### Gino HARRIS [facility], 22983-0, THYR #### [facility] ([id number]) [address], [address] [place] [address] Chloride [Moles/Vol] 103 mmol/L Normal 98-109 [facility] Comment on above: Performed By: #### Gino HARRIS [facility], 39695-2, THYR #### [facility] ([id number]) [address], [address] [place] [address] CO2 [Moles/Vol] 24 mmol/L Normal 22-32 [facility] Comment on above: Performed By: #### Gino HARRIS [facility], 78329-8, THYR #### [facility] ([id number]) [address], [address] [place] [address] Creatinine [Mass/Vol] 0.68 mg/dL Normal 0.40-1.00 [facility] Comment on above: Result Comment: METH OD TRACEABLE TO IDMS STANDARD Performed By: #### Gino HARRIS CMP, 16025-6, THYR #### [facility] ([id number]) [address], [address] [place] [address] eGFR (CKD-EPI) NON-RACE DEPENDENT >90 Normal >59 [facility] Comment on above: Result Comment: Reported eGFR is based on the CKD-EPI 2020 equation that does not use a race coefficient. Performed By: #### Gino HARRIS CMP, 85457-7, THYR #### [facility] ([id number]) [address], [address] [place] [address] Glucose [Mass/Vol] 108 mg/dL High 65-99 [facility] Comment on above: Performed By: #### Gino HARRIS [facility], 88113-2, THYR #### [facility] ([id number]) [address], [address] [place] [address] Potassium [Moles/Vol] 3.8 mmol/L Normal 3.5-5.0 [facility] Comment on above: Performed By: #### Gino HARRIS [facility], 01007-7, THYR #### [facility] ([id number]) [address] [place] [address] Protein [Mass/Vol] 7.5 g/dL Normal 6.0-8.0 [facility] Comment on above: Performed By: #### Gino HARRIS [facility], 85077-7, THYR #### [facility] ([id number]) [address], [address] [place] [address] Sodium [Moles/Vol] 136 mmol/L Normal 134-146 [facility] Comment on above: Performed By: #### Gino HARRIS [facility], 69876-8, THYR #### [facility] ([id number]) [address], [address] [place] [address] Urea nitrogen [Mass/Vol] 10 mg/dL Normal 5-23 [facility] Comment on above: Performed By: #### Gino HARRIS [facility], 10734-2, THYR #### [facility] ([id number]) [address] [place] [address] CT ABDOMEN AND PELVIS W CONT on 06-21-2024 CT ABDOMEN AND PELVIS W CONT CT ABDOMEN AND PELVIS W CONT CT ABDOMEN AND PELVIS WITH CONTRAST CLINICAL INFORMATION: Acute severe pancreatitis, nausea and vomiting, diffuse abdominal pain TECHNIQUE: Multidetector spiral CT scan of the abdomen and pelvis was performed following the uneventful administration of nonionic intravenous contrast. Coronal and sagittal reformatted images were obtained and reviewed. Automated exposure control was utilized. Following the intravenous injection of 100 cc of Omnipaque 300, a CT of the abdomen and pelvis and sagittal and coronal reformats obtained. All CT scans at this facility use dose modulation, iterative reconstruction, and/or weight based dosing when appropriate to reduce radiation dose to as low as reasonably achievable. COMPARISON: CT dated 01/03/2024. FINDINGS: Hepatic steatosis. Status post cholecystectomy. No focal lesion seen in the liver, spleen, adrenal glands, pancreas, or kidneys. No dilated bowel loops or free fluid. IMPRESSION: 1. Hepatic steatosis. 2. Status post cholecystectomy. 3. No acute abnormality seen. Finalized by Parish Bradley MD on 06/21/2024 3:20 PM Normal [facility] LIPASEon 06-21-2024 Lipase [Catalytic activity/Vol] 41 U/L High 17-40 [facility] Comment on above: Performed By: #### Gino HARRIS CMP, 47302-4, THYR #### [facility] ([id number]) [address], [address] [place] [address] PROTIME AND INRon 06-21-2024 INR Coag (PPP) [Relative time] 1.0 {INR} Normal 0.8-1.1 [facility] Comment on above: Performed By: #### Gino HARRIS CMP, 50447-4, THYR #### [facility] ([id number]) [address], [address] [place] [address] PT Coag (PPP) [Time] 11.6 s Normal 9.8-13.2 [facility] Comment on above: Result Comment: NEW REFERENCE RANGE Performed By: #### Gino HARRIS CMP, 60103-5, THYR #### [facility] ([id number]) [address], [address] [place] [address] URN MACROSCOPIC NURon 2023 BILIRUBIN JOURDAN Negative Normal NEG [facility] Comment on above: Performed By: #### Gino HARRIS CMP, 72193-8, THYR #### [facility] ([id number]) [address], [address] [place] [address] BLOOD/HGB JOURDAN Negative Normal NEG [facility] Comment on above: Performed By: #### Gino HARRIS [facility], 28748-9, THYR #### [facility] ([id number]) [address] [place] [address] GLUCOSE JOURDAN Negative Normal NEG [facility] Comment on above: Performed By: #### Gino HARRIS [facility], 15535-8, THYR #### [facility] ([id number]) [address] [place] [address] KETONES JOURDAN Negative Normal NEG [facility] Comment on above: Performed By: #### Gino HARRIS [facility], 16296-3, THYR #### [facility] ([id number]) [address] [place] [address] LEUKOCYTE ESTERASE JOURDAN Negative Normal NEG [facility] Comment on above: Performed By: #### Gino HARRIS [facility], 19869-5, THYR #### [facility] ([id number]) [address] [place] [address] NITRITE JOURDAN Negative Normal NEG [facility] Comment on above: Performed By: #### Gino HARRIS [facility], 93415-6, THYR #### [facility] ([id number]) [address] [place] [address] PH JOURDAN 6.0 Normal 5.0-8.5 [facility] Comment on above: Performed By: #### Gino HARRIS [facility], 00928-1, THYR #### [facility] ([id number]) [address] [place] [address] PROTEIN JOURDAN Negative Normal NEG [facility] Comment on above: Performed By: #### Gino HARRIS CMP, 41913-3, THYR #### [facility] ([id number]) [address] [place] [address] SPECIFIC GRAVITY JOURDAN 1.010 Normal 1.003-1.035 [facility] Comment on above: Performed By: #### C STEVEN, [facility], 82610-5, THYR #### [facility] ([id number]) [address] [place] [address] [address] [place] [address] UROBILINOGEN JOURDAN 0.2 eu/dL Normal <1.1 [facility] Comment on above: Performed By: #### C STEVEN, [facility], 66709-8, THYR #### [facility] ([id number]) [address] [place] [address] [address] [place] [address] aPTT Coag (PPP) [Time]on aPTT Coag (Bld) [Time] 34 s Normal 26-37 [facility] Comment on above: Result Comment: NEW REFERENCE RANGE Performed By: #### C STEVEN [facility], 84464-0, THYR #### [facility] ([id number]) [address] [place] [address] [address] [place] [address] Cytologyon 06-19-2024 Cytology Normal [facility] Comment on above: Result Comment: [facility] [address] [place] [address] Gynecologic Cytology Consultation Patient Name:RAYA GONZALES:1980 (Age: 44)Gender:FTaken:4Reported:4Physician(s):Gisela Cordova, RESPIRATORY TECH-[facility] ([phone])Copy To: Rec. #:[id number]: #[id number] Final Cytologic Interpretation ThinPrep Pap Test (Cervical): Satisfactory for evaluation. A transformation zone component is not identified via imaging-assisted review, using [employer] Thin Prep Imaging System, within 22 microscopic castillo of view. NEGATIVE FOR INTRAEPITHELIAL LESION OR MALIGNANCY. [facility] [place]07[place]05/2024 [facility] [address], License number: [id number]. Electronically Signed Out By MARIAH Loving(ASCP) Date of Last Menstrual Period: 05/14/24 Other Clinical Conditions: Abnormal Bleeding Z01.419 Clerk Entry Level exam wo/abn findings Source of Specimen ThinPrep Pap Test (Cervical) Thin Prep Pap (TOOL DESIGN DRAFTSPERSON) Fee Code(s): G0145 The Pap test is a screening test with an inherent, but low, probability of error. The Pap test is primarily effective for the diagnosis and prevention of squamous cell carcinoma. Regular screening is critical for prevention. ThinPrep liquid-based slides, which meet the Promotional Marketing Agent criteria for automated screening, have been screened by the ThinPrep Imaging System (as of 04/16/07) along with an additional manual rescreening by a entertainment director and, if indicated, by a pathologist. HIGH RISK HPV W/GENOon 06-19 HPV 31+33+35+39+45+51+52+ 56+58+59+66+68 DNA JOSELUIS+probe Ql (Cvx) HPV SPECIMEN TYPE ThinPrep HPV 16 Negative (qualifier value) HPV 18 Negative (qualifier value) OTHER HIGH RISK HPV Negative (qualifier value) HPV types 31,33,35,39,45,52,56,5 8,59,66 and 68 DNA were undetectable. Normal [facility] Comment on above: Performed By: #### 7 1431-1 ####[facility] ([id number])[address] [place] [id number] [place] [address] LAB ([id number])[facility], [address] [place] [address] Alpha 1 antitrypsin Nephelom etry [Mass/Vol]on 06-17-2024 ALPHA 1 ANTITRYPSIN 193 mg/dL Normal 83-199 [facility] Comment on above: Performed By: #### [place], 18[address]-6, HA1C, 6771-0, IMGB, THYR, 2132-9, 80529-0, 76664-8 ####[facility] ([id number])[address] [place] [address], [address] [address]#### 48931-9 ####[facility] ([id number])[address] [place] [address] Alpha 1 antitrypsin phenotyp ing [Interp]on 06-17-2024 Lacda-5-Xfoipsknxfa Phenotype MM Normal [facility] Comment on above: Result Comment: NOTE A single M isoform is detected. In the context of a normal vtefj-5-zlzxaypvakk concentration, this is consistent with an MM phenotype. ADDITIONAL INFORMATION Method: Isoelectric Focusing, This assay identifies the phenotype of the circulating wrjxf-0-nlqzrvjykao (A1A) protein. If the patient is on replacement therapy or has been recently transfused, the phenotype will detect patient and replacement or transfused plasma A1A protein. This test also cannot detect a null allele which could be responsible for an A1A deficiency. Performed By: #### C STEVEN, 60071-6, HA1C, 6771-0, IMGB, THYR, 213-9, 88046-2, 79416-0 ####[facility] ([id number])[address] [address], [address] [address]#### 02515-5 ####[facility] ([id number])[address] [place] [id number] Gtapi-6-Nziqvcjmerf, S 180 mg/dL Normal 100 - 190 [facility] Comment on above: Result Comment: NOTE ADDITIONAL INFORMATION Method: Nephelometry Test Performed by: [facility] [facility], [place] [address] [place] [address] Manager Engine: Arabella Trejo Ph.D.; CLIA# [id number] Performed By: #### Gino BC, 00977-8, HA1C, 6771-0, IMGB, THYR, 2132-03, 66849-6, 54349-9 ####[facility] ([id number])[address] [place] [address]#### 26917-0 ####[facility] ([id number])[address] [place] [address]01 B. burgdorferi IgG+IgM Qn (S )on 06-17-2024 LYME TOTAL <0.2 Normal <0.9 [facility] Comment on above: Result Comment: Interpretation-------- <0.9 Negative 0.9 - 1.0 Equivocal >1.0 Positive No serological evidence of Borrelia infection.A non-reactive result does not exclude the possibility of Borrelia infection and cannot exclude early infection with B.burgdorferi. If Lyme borreliosis is suspected, a second sample should be collected and tested 2-4 weeks later. Performed By: #### C STEVEN, 87016-8, HA1C, 71-0, IMGB, THYR, 2132-03, 37521-5, 83263-6 ####[facility] ([id number])[address] [place] [address]#### 56958-5 ####[facility] ([id number])[address] [place] [address] 96865 COMPLETE BLOOD COUNTon 06-17 Erythrocyte distribution width (RBC) [Ratio] 16.2 % High 11.5-15.0 [facility] Comment on above: Performed By: #### C STEVEN, 20091-9, HA1C, 71-0, IMGB, THYR, 2132-03, 04594-2, 00952-1 ####[facility] ([id number])[address] [place] [address]#### 93187-0 ####[facility] ([id number])[address] [place] [address] 24236 Hematocrit (Bld) [Volume fraction] 41.8 % Normal 35-47 [facility] Comment on above: Performed By: #### C BC, 53504-4, HA1C, 6771-0, IMGB, THYR, 2132-9, 25504-8, 53537-6 ####[facility] ([id number])[address], [address] [place] [address]#### 75261-1 ####[facility] ([id number])[address] [place] [address] 96141 Hemoglobin (Bld) [Mass/Vol] 13.2 g/dL Normal 11.7-15.5 [facility] Comment on above: Performed By: #### C BC, 45755-8, HA1C, 6771-0, IMGB, THYR, 213-9, 72191-1, 90110-6 ####[facility] ([id number])[address], [address] [place] [address]#### 09018-0 ####[facility] ([id number])[address] [place] [address] 25666 MCH (RBC) [Entitic mass] 24.2 pg Low 27-34 [facility] Comment on above: Performed By: #### C BC, 35328-4, HA1C, 6771-0, IMGB, THYR, 2132-9, 27269-1, 73008-8 ####[facility] ([id number])[address], [address] [place] [address] 8[address]#### 36705-8 ####[facility] ([id number])[address] [place] [address] 89310 MCHC (RBC) [Mass/Vol] 31.6 g/dL Low 32-36 [facility] Comment on above: Performed By: #### C BC, 80337-2, HA1C, 6771-0, IMGB, THYR, 213-9, 68791-2, 88563-0 ####[facility] ([id number])[address], [address] [address]#### 92421-7 ####[facility] ([id number])[address] [place] [address] 38600 MCV (RBC) [Entitic vol] 77 fL Low 80-100 [facility] Comment on above: Performed By: #### C STEVEN, 40313-9, HA1C, 6771-0, IMGB, THYR, 2131-, 96886-2, 49748-6 ####[facility] ([id number])[address] [facility], [address] [address]#### 20547-3 ####[facility] ([id number])[address] [place] [address] 06720 Platelet mean volume (Bld) [Entitic vol] 8.4 fL Normal 7-12 [facility] Comment on above: Performed By: #### Gino HARRIS, 45869-3, HA1C, 6771-0, IMGB, THYR, 2131-, 62228-8, 56658-0 ####[facility] ([id number])[address] [address]#### 57667-0 ####[facility] ([id number])[address] [place] [address] 84606 Platelets (Bld) [#/Vol] 460 10*3/uL High 150-450 [facility] Comment on above: Performed By: #### Gino HARRIS, 66502-6, HA1C, 6771-0, IMGB, THYR, 2131-9, 93653-6, 88293-6 ####[facility] ([id number])[address], [address] [place] [address] 9[address]#### 33865-4 ####[facility] ([id number])[address] [place] [address] 70504 RBC COUNT 5.45 X10E12/L High 3.80-5.20 [facility] Comment on above: Performed By: #### C BC, 52446-0, HA1C, 6771-0, IMGB, THYR, 2131-9, 11703-5, 33701-6 ####[facility] ([id number])[address], [address] [place] [address] 85707#### 05311-5 ####[facility] ([id number])[address] [place] [address] 74862 WBC (Bld) [#/Vol] 12.1 10*3/uL High 4.0-11.0 [facility] Comment on above: Performed By: #### C BC, 91932-8, HA1C, 6771-0, IMGB, THYR, 2131-, 42605-2, 28786-5 ####[facility] ([id number])[address] [address]#### 08166-8 ####[facility] ([id number])[address] [place] [address] 99610 EOSINOPHIL, TOTALon 11-18-20 24 Eosinophils (Bld) [#/Vol] 0.2 10*3/uL Normal 0.0-0.4 [facility] Comment on above: Performed By: #### C BC, 86086-3, HA1C, 6771-0, IMGB, THYR, 2131-9, 87829-2, 78273-6 ####[facility] ([id number])[address], [address] [place] [address] 59479#### 60938-9 ####[facility] ([id number])[address] [place] [address] 06066 HGB A1C (GLYCO-HGB)on 2023 Glucose [Mass/Vol] 169 mg/dL Normal [facility] Comment on above: Performed By: #### C BC, 21945-0, HA1C, 6771-0, IMGB, THYR, 9, 61671-7, 82641-7 ####[facility] ([id number])[address] [address], [address] [address]#### 21078-8 ####[facility] ([id number])[address] [place] [address] 34746 HbA1c (Bld) [Mass fraction] 7.5 % High 4.4-5.6 [facility] Comment on above: Result Comment: NOTE ADA Guidelines Result HgbA1c Normal : less than 5.7 % Prediabetes : 5.7 % to 6.4 % Diabetes : > 6.4 % Use with caution in patients with abnormal hemoglobin variants as the half-life of red blood cells and in vivo glycation rates are affected. Performed By: #### C BC, 44896-7, HA1C, 6771-0, IMGB, THYR, 2132-03, 87071-1, 37625-0 ####[facility] ([id number])[address] [place] [address], [address] [place] [address] 36724#### 51903-4 ####[facility] ([id number])[address] [place] [address] 55728 IMMUNOGLOBULINSon 06-17-2024 IgA [Mass/Vol] 181 mg/dL Normal 68-378 [facility] Comment on above: Performed By: #### C BC, 93089-2, HA1C, 6771-0, IMGB, THYR, 2131-9, 63697-0, 32649-9 ####[facility] ([id number])[address] [address]#### 80910-0 ####[facility] ([id number])[address] [place] [address] 24896 IgG [Mass/Vol] 672 mg/dL Normal 635-1741 [facility] Comment on above: Performed By: #### C BC, 94051-5, HA1C, 6771-0, IMGB, THYR, 2131-9, 62752-5, 03835-3 ####[facility] ([id number])[address] [address]#### 56122-8 ####[facility] ([id number])[address] [place] [address] 67265 IgM [Mass/Vol] 165 mg/dL Normal 45-281 [facility] Comment on above: Performed By: #### C BC, 63066-9, HA1C, 6771-0, IMGB, THYR, 2132-03, 87855-9, 34386-0 ####[facility] ([id number])[address] [address]#### 30985-0 ####[facility] ([id number])[address] [place] [address] 88839 Nuclear Ab IA Ql (S)on 06-17 RODRIGO Screen w/reflex Negative Normal NEG [facility] Comment on above: Result Comment: Testing performed using multiplex flow immunoassay. Eleven different antigens associated with systemic autoimmune diseases (dsDNA,Sm,Sm/GREENHOUSE GROWER,GREENHOUSE GROWER,Chromatin, SSA,SSB,Maria Guadalupe-1,Scl70,Ribo P,Centromere B) are included in this screening test. Performed By: #### C BC, 26525-5, HA1C, 6771-0, IMGB, THYR, 2132-03, 51450-3, 93211-1 ####[facility] ([id number])[address], [address], [place] [address]#### 67613-2 ####[facility] ([id number])[address] [place] [address] 38691 RESPIRATORY PANELon 06-17-20 ALTERNARIA ALTERNATA <0.10 Normal <0.10 [facility] Comment on above: Result Comment: Clas s 0: Normal Performed By: #### R AP ####[facility] ([id number])[address], [address] [place] [address] 24771 ASPERGILLUS FUMIGATUS <0.10 Normal <0.10 [facility] Comment on above: Result Comment: Clas s 0: Normal Performed By: #### R AP ####[facility] ([id number])[address], [address], [place] [address] BERMUDA GRASS <0.10 Normal <0.10 [facility] Comment on above: Result Comment: Clas s 0: Normal Performed By: #### R AP ####[facility] ([id number])[address], [address], [place] [address] BOX ELDER <0.10 Normal <0.10 [facility] Comment on above: Result Comment: Clas s 0: Normal Performed By: #### R AP ####[facility] ([id number])[address], [address], [place] [address] CAT DANDER <0.10 Normal <0.10 [facility] Comment on above: Result Comment: Clas s 0: Normal Performed By: #### R AP ####[facility] ([id number])[address], [address] [address] CLADOSPORIUM HERB <0.10 Normal <0.10 [facility] Comment on above: Result Comment: Clas s 0: Normal Performed By: #### R AP ####[facility] ([id number])[address], [address], [place] [address] COCKLEBUR <0.10 Normal <0.10 [facility] Comment on above: Result Comment: Clas s 0: Normal Performed By: #### R AP ####[facility] ([id number])[address], [address], [place] [address] COCKROACH 0.14 kU/L High <0.10 [facility] Comment on above: Result Comment: Clas s 0/1: Low level of Allergy, ongoing sensitization Performed By: #### R AP ####[facility] ([id number])[address], [address] [address] COMMON PIGWEED <0.10 Normal <0.10 [facility] Comment on above: Result Comment: Clas s 0: Normal Performed By: #### R AP ####[facility] ([id number])[address], [address], [place] [address] COMMON RAGWEED <0.10 Normal <0.10 [facility] Comment on above: Result Comment: Clas s 0: Normal Performed By: #### R AP ####[facility] ([id number])[address], [address], [place] [address] COMMON SILVER BIRCH <0.10 Normal <0.10 [facility] Comment on above: Result Comment: Clas s 0: Normal Performed By: #### R AP ####[facility] ([id number])[address], [address], [place] [address] COTTONWOOD <0.10 Normal <0.10 [facility] Comment on above: Result Comment: Clas s 0: Normal Performed By: #### R AP ####[facility] ([id number])[address], [address] [address] DERMATOPH FARINAE <0.10 Normal <0.10 [facility] Comment on above: Result Comment: Clas s 0: Normal Performed By: #### R AP ####[facility] ([id number])[address], [address] [address] DERMATOPH PTERONYSS <0.10 Normal <0.10 [facility] Comment on above: Result Comment: Clas s 0: Normal Performed By: #### R AP ####[facility] ([id number])[address], [address], [place] [address] DOG DANDER <0.10 Normal <0.10 [facility] Comment on above: Result Comment: Clas s 0: Normal Performed By: #### R AP ####[facility] ([id number])[address] [address], [place] [address] ELM <0.10 Normal <0.10 [facility] Comment on above: Result Comment: Clas s 0: Normal Performed By: #### R AP ####[facility] ([id number])[address], [address], [place] [address] GOOSEFOOT LITTLE QTR <0.10 Normal <0.10 [facility] Comment on above: Result Comment: Clas s 0: Normal Performed By: #### R AP ####[facility] ([id number])[address], [address] [address] IGE 31 IU/mL Normal 0-165 [facility] Comment on above: Performed By: #### R AP ####[facility] ([id number])[address], [address] [address] RUSS GRASS <0.10 Normal <0.10 [facility] Comment on above: Result Comment: Clas s 0: Normal Performed By: #### R AP ####[facility] ([id number])[address], [address], [place] [address] MAPLE LEAF SYCAMORE <0.10 Normal <0.10 [facility] Comment on above: Result Comment: Clas s 0: Normal Performed By: #### R AP ####[facility] ([id number])[address], [address], [place] [address] [place] GURPREET <0.10 Normal <0.10 [facility] Comment on above: Result Comment: Clas s 0: Normal Performed By: #### R AP ####[facility] ([id number])[address], [address] [address] MOUNTAIN JUNIPER <0.10 Normal <0.10 [facility] Comment on above: Result Comment: Clas s 0: Normal Performed By: #### R AP ####[facility] ([id number])[address], [address], [place] [address] MOUSE URINE PROTEINS <0.10 Normal <0.10 [facility] Comment on above: Result Comment: Clas s 0: Normal Performed By: #### R AP ####[facility] ([id number])[address], [address] [address] MUGWORT <0.10 Normal <0.10 [facility] Comment on above: Result Comment: Clas s 0: Normal Performed By: #### R AP ####[facility] ([id number])[address], [address] [address] MULBERRY TREE <0.10 Normal <0.10 [facility] Comment on above: Result Comment: Clas s 0: Normal Performed By: #### R AP ####[facility] ([id number])[address], [address], [place] [address] NETTLE <0.10 Normal <0.10 [facility] Comment on above: Result Comment: Clas s 0: Normal Performed By: #### R AP ####[facility] ([id number])[address], [address] [address] OAK <0.10 Normal <0.10 [facility] Comment on above: Result Comment: Clas s 0: Normal Performed By: #### R AP ####[facility] ([id number])[address], [address] [address] PECAN HICKORY TREE <0.10 Normal <0.10 [facility] Comment on above: Result Comment: Clas s 0: Normal Performed By: #### R AP ####[facility] ([id number])[address], [address], [place] [address] PENICILLIUM CHRYSOGENUM <0.10 Normal <0.10 [facility] Comment on above: Result Comment: Clas s 0: Normal Performed By: #### R AP ####[facility] ([id number])[address], [address], [place] [address] ROUGH MARSHELDER <0.10 Normal <0.10 [facility] Comment on above: Result Comment: Clas s 0: Normal Performed By: #### R AP ####[facility] ([id number])[address], [address], [place] [address] SALTW[place] RICK THISTLE <0.10 Normal <0.10 [facility] Comment on above: Result Comment: Clas s 0: Normal Performed By: #### R AP ####[facility] ([id number])[address], [address], [place] [address] SHEEP SORREL <0.10 Normal <0.10 [facility] Comment on above: Result Comment: Clas s 0: Normal Performed By: #### R AP ####[facility] ([id number])[address], [address], [place] [address] ANAI <0.10 Normal <0.10 [facility] Comment on above: Result Comment: Clas s 0: Normal Performed By: #### R AP ####[facility] ([id number])[address] [address], [place] [address] WALNUT TREE POLLEN <0.10 Normal <0.10 [facility] Comment on above: Result Comment: Clas s 0: Normal Performed By: #### R AP ####[facility] ([id number])[address] [address] [place] [address] WHITE LAZARO <0.10 Normal <0.10 [facility] Comment on above: Result Comment: Clas s 0: Normal Performed By: #### R AP ####[facility] ([id number])[address] [address] [place] [address] THYROID PROFILEon 06-17-2024 Free T4 [Mass/Vol] 1.06 ng/dL Normal 0.61-1.60 [facility] Comment on above: Performed By: #### C STEVEN, 11493-9, HA1C, 6771-0, IMGB, THYR, 2132-03, 24270-2, 90433-7 ####[facility] ([id number])[address] [address] [place] [address]#### 77725-2 ####[facility] ([id number])[address] [place] [address] TSH 4.33 uIU/mL Normal 0.49-4.67 [facility] Comment on above: Performed By: #### C STEVEN, 10035-0, HA1C, 6771-0, IMGB, THYR, 2132-03, 65059-4, 71363-2 ####[facility] ([id number])[address] [address] [place] [address]#### 61776-6 ####[facility] ([id number])[address] [place] [address] VITAMIN B12on 06-17-2024 Cobalamin (Vitamin B12) [Mass/Vol] 460 pg/mL Normal 180-914 [facility] Comment on above: Performed By: #### C BC, 93784-2, HA1C, 6771-0, IMGB, THYR, 2132-9, 08534-6, 78450-2 ####[facility] ([id number])[address] [facility], [address] [place] [address]#### 69965-8 ####[facility] ([id number])[address] [place] [address] HERPES SIMPLEX VIRAL PCRon 08-12-2023 HERPES SIMPLEX VIRAL PCR SPECIMEN SOURCE VAGINAL LESION HERPES SIMPLEX 1 PCR Negative (qualifier value) HSV 1 DNA Not Detected HERPES SIMPLEX 2 PCR Negative (qualifier value) HSV 2 DNA Not Detected Normal [facility] Comment on above: Performed By: #### H SV12 #### [facility] ([id number]) [address], [address] [place] [address] MAMM DIAGNOSTIC BILATERAL W CADon 03-05-2024 MAMM DIAGNOSTIC BILATERAL W CAD MAMM DIAGNOSTIC BILATERAL W CAD EXAM: MAMM DIAGNOSTIC BILATERAL W CAD, 03/05/2024 12:50 PM CLINICAL INDICATIONS: Breast pain, left, COMPARISON: None TECHNIQUE: Digital mammographic images of both breasts were obtained the CC and MLO projections. Tomosynthesis also performed. Computer-aided detection was utilized. In addition, sonographic evaluation of the left breast was obtained in the area of pain described clinically FINDINGS: There are scattered areas of fibroglandular density. Mammographically, there is no evidence of dominant mass lesion, clustered like calcification, or skin thickening to suggest malignancy. Sonographically, normal-appearing fibroglandular tissue seen throughout the visualized portions of the left breast. No cystic or solid abnormalities are seen. No sonographic evidence of malignancy was demonstrated. IMPRESSION: * Both breasts negative for evidence of malignancy mammographically * No sonographic evidence of malignancy was demonstrated in the left breast. BI-RADS: BI-RADS 1 - Negative Recommendation: Routine screening mammogram in 1 year Patient was given the results before leaving the department. Finalized by Remy Min MD on 03/05/2024 1:43 PM 1 b MAMM 1 YR Normal [facility] US BREAST LT LIMITEDon 03-05 US BREAST LT LIMITED US BREAST LT LIMITE D EXAM: US BREAST LT LIMITED, 03/05/2024 1:28 PM CLINICAL INDICATIONS: Breast pain, left, COMPARISON: None TECHNIQUE: Digital mammographic images of both breasts were obtained the CC and MLO projections. Tomosynthesis also performed. Computer-aided detection was utilized. In addition, sonographic evaluation of the left breast was obtained in the area of pain described clinically FINDINGS: Mammographically, there is no evidence of dominant mass lesion, clustered like calcification, or skin thickening to suggest malignancy. Sonographically, normal-appearing fibroglandular tissue seen throughout the visualized portions of the left breast. No cystic or solid abnormalities are seen. No sonographic evidence of malignancy was demonstrated. IMPRESSION: * Both breasts negative for evidence of malignancy mammographically * No sonographic evidence of malignancy was demonstrated in the left breast. BI-RADS: BI-RADS 1 - Negative Recommendation: Routine screening mammogram in 1 year Patient was given the results before leaving the department. Finalized by Remy Min MD on 03/05/2024 2:12 PM 1 MAMM 1 YR Normal [facility] MR BRAIN W WO CONTon 02-27-2 024 MR BRAIN W WO CONT MR BRAIN W WO CONT MR BRAIN W WO CONT HISTORY: Intermittent L blindness, imbalance, Concern for demyelinating disease. Abnormal brain MRI in 2020; blind in right eye. ?Evaluate for new lesions since 2020 to assist with diagnosis. COMPARISON: MRI 10/25/20 with and without contrast TECHNIQUE: Multisequence, multiplanar MR images of the brain were obtained with and without intravenous contrast. FINDINGS: Neuro[employer] report was performed for the purpose of multiple sclerosis evaluation. No evidence of acute infarct, intracranial hemorrhage, mass effect, midline shift or extra-axial fluid. Ventricles, sulci and cistern are unremarkable. Brain volume is age appropriate. Mild to moderate burden of deep white matter signal changes in the callososeptal, periventricular and juxtacortical regions. According to [employer]Quant: * Whole brain volume measures 1213 cm^3 reflecting the 81% normative percentile. * Thalamic volume measures 14.7 cm^3, reflecting the 81% normative percentile. * According to [employer], there are a total of 32 white matter lesions, including for juxtacortical, 11 periventricular, one infratentorial and 16 deep white lesions. No pathologic intracranial enhancement. No evidence of progressive multifocal leukoencephalopathy (PML). 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 Questionable optic nerve atrophy. Paranasal sinuses are clear. Temporal bones are clear. IMPRESSION: * [id number] burden of deep white matter signal changes, similar to prior, and suggestive of a demyelinating process. No acutely enhancing lesions. 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 MR orbits is reported separately. Approved by Res Erick Tapia MD on 02/28/2024 8:31 AM Aneesh Barlow have personally reviewed the image(s) and agree with and/or edited the report Finalized by Aneesh Mendez on 02/28/2024 11:47 AM Normal [facility] MR ORBIT W WO CONTon 024 MR ORBIT W WO CONT MR ORBIT W WO CONT STUDY: MR ORBIT W WO CONT INDICATION: Abnormal brain MRI. TECHNIQUE: * Routine multiplanar multisequence MR imaging of the orbits was performed with and without intravenous contrast. 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 The left globe is unremarkable. There may be mild atrophic changes of the bilateral optic nerves. No significant mass effect or abnormality associated with the optic chiasm. The intraconal fat is preserved. There is no abnormal enhancement or enhanced mass in the orbits. There is no extrinsic mass compressing the optic chiasm or optic nerves. 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 * No suggestion of optic neuritis. Approved by Resident: Blair Motley DO on 02/28/2024 11:45 AM Aneesh Barlow have personally reviewed the image(s) and agree with and/or edited the report Finalized by Aneesh Mendez on 02/28/2024 1:46 PM Normal [facility] MR CERVICAL SPINE W WO CONTo n 02-27-2024 MR CERVICAL SPINE W WO CONT MR CERVICAL SPINE W WO CONT CLINICAL INFORMATION: Abnormal brain MRI TECHNIQUE: MR CERVICAL SPINE W WO CONT Multisequence multiplanar imaging of the cervical spine was obtained utilizing the routine cervical protocol. There are no prior exams available for comparison. Mild motion degradation noted. There is no obvious cord signal characteristic abnormality. Contrast-enhanced imaging acquired in the sagittal and axial planes no focus of abnormal intradural or extradural enhancement. The the C2-3 level is unremarkable. At the C3-4 level there is leftward disc osteophyte complex which produces moderate to severe left neural foraminal narrowing. Central canal is only mildly narrowed. C4-C5 level is unremarkable. C5-6 level is unremarkable. C6-7 level is unremarkable. Facets are aligned. Inversion recovery images show normal bone marrow signal. Cerebellar tonsils are normal position. IMPRESSION: Leftward disc protrusion at C3-4 produces moderate to severe left neural foraminal narrowing. Unremarkable cervical cord without obvious demyelinating plaques. Finalized by Ant Early MD on 02/27/2024 3:15 PM Normal [facility] CT BRAIN WO CONTon CT BRAIN WO CONT CT BRAIN WO CONT HISTORY: A 43-year-old female with the history of the chronic headaches with increasing frequency. EXAM/TECHNIQUE: Multidetector spiral CT scan of brain is performed. Multiplanar reconstruction images are reformatted. All CT scans at this facility use dose modulation, iterative reconstruction, and/or weight based dosing when appropriate to reduce radiation dose to as low as reasonably achievable. COMPARISON: Comparison is made with CT scan of brain of 10/25/2020 and MRI examination of brain of 10/27/2020. FINDINGS: The ventricular system is normal in size and configuration. There is normal differentiation of gotti and white matters. There is no evidence of intracranial hemorrhage or acute pathology. The cerebellum and brainstem are unremarkable. No mass effect, midline shift of the structures or extra-axial fluid collections are noted. The calvarium is intact. The visualized paranasal sinuses and mastoid air cells are clear. IMPRESSION: * No evidence of intracranial hemorrhage or acute pathology. Finalized by Martin Valero MD on 01/30/2024 4:36 PM Normal [facility] Fecal Panc Elastaseon 2023 Pancreatic Elastase >800 Normal >=100 [facility] Comment on above: Result Comment: (NOT E) REFERENCE INTERVAL: Pancreatic Elastase Fecal by Immunoassay Less than 100 ug/g............Severe insufficiency 100 - 199 ug/g................Moderate insufficiency 200 ug/g or greater...........Normal INTERPRETIVE INFORMATION: Pancreatic Elastase Fecal by Immunoassay Reference intervals do not apply for infants less than one month old. Performed By: [employer] [address] [place] [address] Feeder Worker Power Unit Operator: Landon Winters MD, PhD CLIA Number: [id number] Performed By: #### A PEF #### [employer] [address] [place] [id number] Manager Engine: Casey Howard MD CBC AND AUTO DIFFon 01-03-20 24 ABSOLUTE BASOPHIL 0.1 X10E9/L Normal 0.0-0.2 [facility] Comment on above: Performed By: #### C MP, CBCA ####[facility] ([id number])[address] [place] [address] 35816 ABSOLUTE NEUTROPHIL 5.8 X10E9/L Normal 1.5-6.6 [facility] Comment on above: Performed By: #### C MP, CBCA ####[facility] ([id number])[address] [place] [address] 20358 Basophils/100 WBC (Bld) 0.9 % Normal [facility] Comment on above: Performed By: #### C MP, CBCA ####[facility] ([id number])[address] [place] [address] 70214 Eosinophils (Bld) [#/Vol] 0.3 10*3/uL Normal 0.0-0.4 [facility] Comment on above: Performed By: #### C MP, CBCA ####[facility] ([id number])[address] [place] [address] 90670 Eosinophils/100 WBC (Bld) 3.5 % Normal [facility] Comment on above: Performed By: #### C MP, CBCA ####[facility] ([id number])[address] [place] [address] 19657 Erythrocyte distribution width (RBC) [Ratio] 17.0 % High 11.5-15.0 [facility] Comment on above: Performed By: #### C MP, CBCA ####[facility] ([id number])[address] [place] [address] 28880 Hematocrit (Bld) [Volume fraction] 40.0 % Normal 35-47 [facility] Comment on above: Performed By: #### C MP, CBCA ####[facility] ([id number])[address] [place] [address] 68001 Hemoglobin (Bld) [Mass/Vol] 13.1 g/dL Normal 11.7-15.5 [facility] Comment on above: Performed By: #### C MP, CBCA ####[facility] ([id number])[address] [place] [address] 87969 Lymphocytes (Bld) [#/Vol] 1.6 10*3/uL Normal 1.0-3.5 [facility] Comment on above: Performed By: #### C MP, CBCA ####[facility] ([id number])[address] [place] [address] 58002 Lymphocytes/100 WBC (Bld) 19.3 % Normal [facility] Comment on above: Performed By: #### C MP, CBCA ####[facility] ([id number])[address] [place] [address] 70028 MCH (RBC) [Entitic mass] 26.3 pg Low 27-34 [facility] Comment on above: Performed By: #### C MP, CBCA ####[facility] ([id number])[address] [place] [address] 06270 MCHC (RBC) [Mass/Vol] 32.8 g/dL Normal 32-36 [facility] Comment on above: Performed By: #### C MP, CBCA ####[facility] ([id number])[address] [place] [address] 14685 MCV (RBC) [Entitic vol] 80 fL Normal 80-100 [facility] Comment on above: Performed By: #### C KEILA, CBCA ####[facility] ([id number])[address] [place] [address] 41347 Monocytes (Bld) [#/Vol] 0.5 10*3/uL Normal 0-0.9 [facility] Comment on above: Performed By: #### C KEILA, CBCA ####[facility] ([id number])[address] [place] [address] 79745 Monocytes/100 WBC (Bld) 5.7 % Normal [facility] Comment on above: Performed By: #### C KEILA, CBCA ####[facility] ([id number])[address] [place] [address] 03790 Neutrophils/100 WBC (Bld) 70.6 % Normal [facility] Comment on above: Performed By: #### C MP, CBCA ####[facility] ([id number])[address] [place] [address] 96503 Platelet mean volume (Bld) [Entitic vol] 8.1 fL Normal 7-12 [facility] Comment on above: Performed By: #### C MP, CBCA ####[facility] ([id number])[address] [place] [address] 64247 Platelets (Bld) [#/Vol] 355 10*3/uL Normal 150-450 [facility] Comment on above: Performed By: #### C MP, CBCA ####[facility] ([id number])[address] [place] [address] 08696 RBC COUNT 5.00 X10E12/L Normal 3.80-5.20 [facility] Comment on above: Performed By: #### C MP, CBCA ####[facility] ([id number])[address] [place] [address] 64703 WBC (Bld) [#/Vol] 8.3 10*3/uL Normal 4.0-11.0 [facility] Comment on above: Performed By: #### C MP, CBCA ####[facility] ([id number])[address] [place] [address] 34258 COMPREHENSIVE METABOLIC PANE [facility] 01-03-2024 Albumin [Mass/Vol] 4.3 g/dL Normal 3.2-5.3 [facility] Comment on above: Performed By: #### C MP, CBCA #### [facility] ([id number]) [address] [place] [address] 09787 ALP [Catalytic activity/Vol] 77 U/L Normal 39-130 [facility] Comment on above: Performed By: #### C MP, CBCA #### [facility] ([id number]) [address] [place] [address] 99710 ALT [Catalytic activity/Vol] 33 U/L High 0-31 [facility] Comment on above: Performed By: #### C MP, CBCA #### [facility] ([id number]) [address] [place] [address] 09460 Anion gap [Moles/Vol] 12 mmol/L Normal 5-15 [facility] Comment on above: Performed By: #### C KEILA CBCA #### [facility] ([id number]) [address] [place] [address] 74988 AST [Catalytic activity/Vol] 24 U/L Normal 0-41 [facility] Comment on above: Performed By: #### C KEILA, CBCA #### [facility] ([id number]) [address] [place] [address] 83531 Bilirubin [Mass/Vol] 0.3 mg/dL Normal 0.3-1.2 [facility] Comment on above: Performed By: #### C KEILA CBCA #### [facility] ([id number]) [address] [place] [address] 49956 Calcium [Mass/Vol] 8.8 mg/dL Normal 8.5-10.5 [facility] Comment on above: Performed By: #### C KEILA CBCA #### [facility] ([id number]) [address] [place] [address] 71142 Chloride [Moles/Vol] 101 mmol/L Normal 98-109 [facility] Comment on above: Performed By: #### C KEILA, CBCA #### [facility] ([id number]) [address] [place] [address] 59393 CO2 [Moles/Vol] 22 mmol/L Normal 22-32 [facility] Comment on above: Performed By: #### C KEILA, CBCA #### [facility] ([id number]) [address] [place] [address] 79917 Creatinine [Mass/Vol] 0.67 mg/dL Normal 0.40-1.00 [facility] Comment on above: Result Comment: METH OD TRACEABLE TO IDMS STANDARD Performed By: #### C KEILA CBCA #### [facility] ([id number]) [address] [place] [address] 48729 eGFR (CKD-EPI) NON-RACE DEPENDENT >90 Normal >59 [facility] Comment on above: Result Comment: Reported eGFR is based on the CKD-EPI 2020 equation that does not use a race coefficient. Performed By: #### C KEILA, CBCA #### [facility] ([id number]) [address] [place] [address] 04573 Glucose [Mass/Vol] 165 mg/dL High 65-99 [facility] Comment on above: Performed By: #### C KEILA, CBCA #### [facility] ([id number]) [address] [place] [address] 00020 Potassium [Moles/Vol] 4.0 mmol/L Normal 3.5-5.0 [facility] Comment on above: Performed By: #### C KEILA, CBCA #### [facility] ([id number]) [address] [place] [address] 36887 Protein [Mass/Vol] 7.8 g/dL Normal 6.0-8.0 [facility] Comment on above: Performed By: #### C KEILA, CBCA #### [facility] ([id number]) [address] [place] [address] 62614 Sodium [Moles/Vol] 135 mmol/L Normal 134-146 [facility] Comment on above: Performed By: #### C KEILA, CBCA #### [facility] ([id number]) [address] [place] [address] 49527 Urea nitrogen [Mass/Vol] 14 mg/dL Normal 5-23 [facility] Comment on above: Performed By: #### C KEILA, CBCA #### [facility] ([id number]) [address] [place] [address] ABDOMEN AND PELVIS WO CON Ton 01-03-2024 CT ABDOMEN AND PELVIS WO CONT CT ABDOMEN AND PELVIS WO CONT CLINICAL INFORMATION: Acute abdominal pain COMPARISON: CT scan 11/20/2022 PROCEDURE: CT abdomen and pelvis obtained without contrast. All CT scans at this facility dose modulation, iterative reconstruction, and/or weight based dosing when appropriate to reduce radiation dose to as low as reasonably achievable. FINDINGS: This examination is limited for the evaluation of solid organs and vascular structures due to the lack of intravenous contrast. Lung bases are clear. Diffuse hepatic steatosis. Gallbladder surgically absent. No biliary dilatation. The pancreas, spleen, and adrenal glands are unremarkable. Kidneys are symmetric. No hydronephrosis or ureteral obstruction. Urinary bladder is decompressed. No intra-abdominal free air or free fluid. No small bowel obstruction. The appendix is normal. Colon is unremarkable by CT. No acute osseous abnormalities. Intervertebral disc space narrowing with osteophyte formation at L5-S1. IMPRESSION: 1. No acute findings on CT abdomen and pelvis without contrast. 2. Diffuse hepatic steatosis. Finalized by Kaleb Lawson MD on 01/03/2024 10:20 PM Normal [facility] HCG ( test) Ql (U)o n 01-03-2024 Beta HCG ( test) Ql (U) Negative Normal NEG [facility] Comment on above: Performed By: #### 2 106-3 #### [facility] ([id number]) [address] [place] [address] 80077 URN MACROSCOPIC NURon 2023 BILIRUBIN JOURDAN Negative Normal NEG [facility] Comment on above: Performed By: #### N UM #### [facility] ([id number]) [address] [place] [address] 49326 BLOOD/HGB JOURDAN Trace Abnormal NEG [facility] Comment on above: Performed By: #### N UM #### [facility] ([id number]) [address] [place] [address] 16382 GLUCOSE JOURDAN Negative Normal NEG [facility] Comment on above: Performed By: #### N UM #### [facility] ([id number]) [address] [place] [address] 41654 KETONES JOURDAN Negative Normal NEG [facility] Comment on above: Performed By: #### N UM #### [facility] ([id number]) [address] [place] [address] 71415 LEUKOCYTE ESTERASE JOURDAN Negative Normal NEG [facility] Comment on above: Performed By: #### N UM #### [facility] ([id number]) [address] [place] [address] 99090 NITRITE JOURDAN Negative Normal NEG [facility] Comment on above: Performed By: #### N UM #### [facility] ([id number]) [address] [place] [address] 08773 PH JOURDAN 6.0 Normal 5.0-8.5 [facility] Comment on above: Performed By: #### N UM #### [facility] ([id number]) [address] [place] [address] 71951 PROTEIN JOURDAN Negative Normal NEG [facility] Comment on above: Performed By: #### N UM #### [facility] ([id number]) [address] [place] [address] 34997 SPECIFIC GRAVITY JOURDAN 1.025 Normal 1.003-1.035 [facility] Comment on above: Performed By: #### N UM #### [facility] ([id number]) [address] [place] [address] 96611 UROBILINOGEN JOURDAN 0.2 eu/dL Normal <1.1 [facility] Comment on above: Performed By: #### N UM #### [facility] ([id number]) [address] [place] [address] 12148 US ABDOMEN LIMITEDon 024 US ABDOMEN LIMITED EXAMINATION: RIGHT UPPER QUADRANT ULTRASOUND 01/02/2024 3:13 pm COMPARISON: None. HISTORY: ORDERING SYSTEM PROVIDED HISTORY: RUQ abdominal pain TECHNOLOGIST PROVIDED HISTORY: This procedure can be scheduled via [facility]. Specify organ?->LIVER Specify organ?->PANCREAS FINDINGS: LIVER: The liver demonstrates normal echogenicity without evidence of intrahepatic biliary ductal dilatation. Hepatopetal flow portal vein. BILIARY SYSTEM: Cholecystectomy Common bile duct is prominent measuring 9.7 mm. RIGHT KIDNEY: The right kidney is grossly unremarkable without evidence of hydronephrosis. PANCREAS: Visualized portions of the pancreas are unremarkable. OTHER: No evidence of right upper quadrant ascites. IMPRESSION: 1. Cholecystectomy. 2. Prominent common bile duct measuring 9.7 mm. This likely reflects post cholecystectomy benign biliary ductal ectasia. Interpreted by: Alfonso Ramos DO Signed by: Alfonso Ramos DO 01/02/24 Final result Normal [facility] US Abdomen limitedon 024 1. Cholecystectomy. 2. Prominent common bile duct measuring 9.7 mm. This likely reflects post cholecystectomy benign biliary ductal ectasia. [facility] RIS CONSOLIDATED EXAMINATION: RIGHT UPPER QUADRANT ULTRASOUND 01/02/2024 3:13 pm COMPARISON: None. HISTORY: ORDERING SYSTEM PROVIDED HISTORY: [facility] abdominal pain TECHNOLOGIST PROVIDED HISTORY: This procedure can be scheduled via MyChart. Specify organ?->LIVER Specify organ?->PANCREAS FINDINGS: LIVER: The liver demonstrates normal echogenicity without evidence of intrahepatic biliary ductal dilatation. Hepatopetal flow portal vein. BILIARY SYSTEM: Cholecystectomy Common bile duct is prominent measuring 9.7 mm. RIGHT KIDNEY: The right kidney is grossly unremarkable without evidence of hydronephrosis. PANCREAS: Visualized portions of the pancreas are unremarkable. OTHER: No evidence of right upper quadrant ascites. [facility] RIS CONSOLIDATED Alfonso Ramos DO - 01/02/2024 EXAMINATION: RIGHT UPPER QUADRANT ULTRASOUND 01/02/2024 3:13 pm COMPARISON: None. HISTORY: ORDERING SYSTEM PROVIDED HISTORY: RU abdominal pain TECHNOLOGIST PROVIDED HISTORY: This procedure can be scheduled via MyChart. Specify organ?->LIVER Specify organ?->PANCREAS FINDINGS: LIVER: The liver demonstrates normal echogenicity without evidence of intrahepatic biliary ductal dilatation. Hepatopetal flow portal vein. BILIARY SYSTEM: Cholecystectomy Common bile duct is prominent measuring 9.7 mm. RIGHT KIDNEY: The right kidney is grossly unremarkable without evidence of hydronephrosis. PANCREAS: Visualized portions of the pancreas are unremarkable. OTHER: No evidence of right upper quadrant ascites. IMPRESSION: 1. Cholecystectomy. 2. Prominent common bile duct measuring 9.7 mm. This likely reflects post cholecystectomy benign biliary ductal ectasia. [facility] Radiology Study observation (narrative) [facility] US Abdomen limitedOrdered By : Alfonso Ramos on 01-02-2024 [facility] Work Phone: Celiac Disease Panelon 12-27 Gliadin Deam Pep IgG <0.4 Normal <7.0 [facility] Comment on above: Result Comment: CELIAC INTERPRETATION <7.0 Negative 7.0-10.0 Equivocal >10.0 Positive units: U/mL Performed By: #### C PBILC, CDP, LIP #### [address] [place] [address] Manager Engine: Remy Zavaleta MD #### CELP #### [address] [phone] Manager Engine: Zac Servin MD Gliadin Deam Pep IgA 1.1 U/mL Normal <7.0 [facility] Comment on above: Result Comment: CELIAC INTERPRETATION <7.0 Negative 7.0-10.0 Equivocal >10.0 Positive units: U/mL Performed By: #### C PBILC, CDP, LIP #### [address] [place] [address] Manager Engine: Remy Zavaleta MD #### CELP #### [address] [phone] Manager Engine: Zac Servin MD Tiss Transglutam IgA 0.4 U/mL Normal <7.0 [facility] Comment on above: Result Comment: CELIAC INTERPRETATION <7.0 Negative 7.0-10.0 Equivocal >10.0 Positive units: U/mL Performed By: #### C PBILC, CDP, LIP #### [facility] [address] [place] [address] [place] [address] Manager Engine: Remy Zavaleta MD #### CELP #### [address] [place] [address] Manager Engine: Zac Servin MD Celiac Disease Panelon 12-26 IgA [Mass/Vol] 188 mg/dL Normal 70-400 [facility] Comment on above: Performed By: #### C PBILC, CDP, LIP #### [address] [place] [phone] Manager Engine: Remy Zavaleta MD #### CELP #### [address] [phone] Manager Engine: Zac Servin MD CBC with Diffon 12-26-2023 Abs. Basophil 0.03 k/uL Normal 0.00-0.20 [facility] Comment on above: Performed By: #### C PBILC, CDP, LIP #### [address] [place] [address] Manager Engine: Remy Zavaleta MD #### CELP #### [place] [phone] Manager Engine: Zac Servin MD Abs.Imm.Granulocyte <0.03 Normal 0.00-0.30 [facility] Comment on above: Performed By: #### C PBILC, CDP, LIP #### [address] [place] [address] Manager Engine: Remy Zavaleta MD #### CELP #### [place] [id number] Manager Engine: Zac Servin MD Abs.Neutrophil (Seg) 4.18 k/uL Normal 1.50-8.10 [facility] Comment on above: Performed By: #### C PBILC, CDP, LIP #### [address] [place] [phone] Manager Engine: Remy Zavaleta MD #### CELP #### [place] [phone] [place] [address] Manager Engine: Zac Servin MD Basophils/100 WBC (Bld) 0 % Normal 0-2 [facility] Comment on above: Performed By: #### C PBILC, CDP, LIP #### [address] [place] [phone] Manager Engine: Remy Zavaleta MD #### CELP #### [address] [phone] Manager Engine: Zac Servin MD Eosinophils (Bld) [#/Vol] 0.29 10*3/uL Normal 0.00-0.44 [facility] Comment on above: Performed By: #### C PBILC, CDP, LIP #### [address] [place] [phone] ( Manager Engine: Remy Zavaleta MD #### CELP #### [place] [phone] Manager Engine: Zac Servin MD Eosinophils/100 WBC (Bld) 4 % Normal 1-4 [facility] Comment on above: Performed By: #### C PBILC, CDP, LIP #### [address] [place] [phone] Manager Engine: Remy Zavaleta MD #### CELP #### [address] [phone] Manager Engine: Zac Servin MD Erythrocyte distribution width (RBC) [Ratio] 15.9 % High 11.8-14.4 [facility] Comment on above: Performed By: #### C PBILC, CDP, LIP #### [address] [place] [phone] Manager Engine: Remy Zavaleta MD #### CELP #### [address] [phone] Manager Engine: Zac Servin MD Hematocrit (Bld) [Volume fraction] 43.5 % Normal 36.3-47.1 [facility] Comment on above: Performed By: #### C PBILC, CDP, LIP #### [facility] [address] [place] [phone] Manager Engine: Remy Zavaleta MD #### CELP #### [address] [phone] Manager Engine: Zac Servin MD Hemoglobin (Bld) [Mass/Vol] 13.4 g/dL Normal 11.9-15.1 [facility] Comment on above: Performed By: #### C PBILC, CDP, LIP #### [address] [place] [phone] Manager Engine: Remy Zavaleta MD #### CELP #### [place] [phone] Manager Engine: Zac Servin MD Immature granulocytes/100 WBC (Bld) 0 % Normal 0 [facility] Comment on above: Performed By: #### C PBILC, CDP, LIP #### [address] [place] [phone] Manager Engine: Remy Zavaleta MD #### CELP #### [address] [phone] Manager Engine: Zac Servin MD Lymphocytes (Bld) [#/Vol] 1.87 10*3/uL Normal 1.10-3.70 [facility] Comment on above: Performed By: #### C PBILC, CDP, LIP #### [address] [address]. [place] [phone] Manager Engine: Remy Zavaleta MD #### CELP #### [address] [phone] Manager Engine: Zac Servin MD Lymphocytes/100 WBC (Bld) 27 % Normal 24-43 [facility] Comment on above: Performed By: #### C PBILC, CDP, LIP #### [address] [place] [phone] Manager Engine: Remy Zavaleta MD #### CELP #### [address] [phone] Manager Engine: Zac Servin MD MCH (RBC) [Entitic mass] 25.8 pg Normal 25.2-33.5 [facility] Comment on above: Performed By: #### C PBILC, CDP, LIP #### [address] [place] [phone] Manager Engine: Remy Zavaleta MD #### CELP #### [place] [phone] Manager Engine: Zac Servin MD MCHC (RBC) [Mass/Vol] 30.8 g/dL Normal 28.4-34.8 [facility] Comment on above: Performed By: #### C PBILC, CDP, LIP #### [address] [place] [phone] Manager Engine: Remy Zavaleta MD #### CELP #### [place] [phone] Manager Engine: Zac Servin MD MCV (RBC) [Entitic vol] 83.8 fL Normal 82.6-102.9 [facility] Comment on above: Performed By: #### C PBILC, CDP, LIP #### [address] [place] [address] Manager Engine: Remy Zavaleta MD #### CELP #### [address] [address] Manager Engine: Zac Servin MD Monocytes (Bld) [#/Vol] 0.51 10*3/uL Normal 0.10-1.20 [facility] Comment on above: Performed By: #### C PBILC, CDP, LIP #### [facility] [address] [place] [address] Manager Engine: Remy Zavaleta MD #### CELP #### [address] [phone] Manager Engine: Zac Servin MD Monocytes/100 WBC (Bld) 7 % Normal 3-12 [facility] Comment on above: Performed By: #### C PBILC, CDP, LIP #### [address] [place] [address] Manager Engine: Remy Zavaleta MD #### CELP #### [address] [address] Manager Engine: Zac Servin MD Neutrophil (Seg) 62 % Normal 36-65 [facility] Comment on above: Performed By: #### C PBILC, CDP, LIP #### [address] [place], [place] [phone] Manager Engine: Remy Zavaleta MD #### CELP #### [address] [address] Manager Engine: Zac Servin MD NRBC Automated 0.0 per 100 WBC Normal 0.0 [facility] Comment on above: Performed By: #### C PBILC, CDP, LIP #### [address] [place], [place] [phone] Manager Engine: Remy Zavaleta MD #### CELP #### [address] [phone] Manager Engine: Zac Serivn MD Platelet mean volume (Bld) [Entitic vol] 9.8 fL Normal 8.1-13.5 [facility] Comment on above: Performed By: #### C PBILC, CDP, LIP #### [facility] [address] [place], [place] [phone] Manager Engine: Remy Zavaleta MD #### CELP #### [place] 1733[address] [place], [place] [phone] Manager Engine: Zac Servin MD Platelets (Bld) [#/Vol] 341 10*3/uL Normal 138-453 [facility] Comment on above: Performed By: #### C PBILC, CDP, LIP #### [facility] [address] [place] [address] Dr. [place] [phone] Manager Engine: Remy Zavaleta MD #### CELP #### [address] [address] Manager Engine: Zac Servin MD RBC (Bld) [#/Vol] 5.19 10*6/uL High 3.95-5.11 [facility] Comment on above: Performed By: #### C PBILC, CDP, LIP #### [facility] [address] [place] [address] Dr. [place] [phone] Manager Engine: Remy Zavaleta MD #### CELP #### [place] [address] [place], [place] [phone] Manager Engine: Zac Servin MD WBC (Bld) [#/Vol] 6.9 10*3/uL Normal 3.5-11.3 [facility] Comment on above: Performed By: #### C PBILC, CDP, LIP #### [facility] [address] [place] [address] Manager Engine: Remy Zavaleta MD #### CELP #### [place] [address] [place] [address] Manager Engine: Zac Servin MD Comp Metab w/Bili Pron 12-25 Albumin [Mass/Vol] 4.3 g/dL Normal 3.5-5.2 [facility] Comment on above: Performed By: #### C PBILC, CDP, LIP #### [address] [place], [place] [phone] Manager Engine: Remy Zavaleta MD #### CELP #### [place] [address] [place] [address] Manager Engine: Zac Servin MD Albumin/Glob Ratio 1.4 Normal 1.0-2.5 [facility] Comment on above: Performed By: #### C PBILC, CDP, LIP #### [address] [place] [phone] Manager Engine: Remy Zavaleta MD #### CELP #### [address] [address] Manager Engine: Zac Servin MD Alkaline Phos 91 U/L Normal 35-104 [facility] Comment on above: Performed By: #### C PBILC, CDP, LIP #### [address] [place] [phone] Manager Engine: Remy Zavaleta MD #### CELP #### [address] [address] Manager Engine: Zac Servin MD ALT [Catalytic activity/Vol] 22 U/L Normal 5-33 [facility] Comment on above: Performed By: #### C PBILC, CDP, LIP #### [address] [place], [place] [phone] Manager Engine: Remy Zavaleta MD #### CELP #### [place] [address] [place] [address] Manager Engine: Zac Servin MD Anion gap [Moles/Vol] 10 mmol/L Normal 9-17 [facility] Comment on above: Performed By: #### C PBILC, CDP, LIP #### [facility] [address] [place], [place] [phone] Manager Engine: Remy Zavaleta MD #### CELP #### [address] [address] Manager Engine: Zac Servin MD AST [Catalytic activity/Vol] 16 U/L Normal <32 [facility] Comment on above: Performed By: #### C PBILC, CDP, LIP #### [facility] [address] [place] [address] Dr. [place], [place] [phone] Manager Engine: Remy Zavaleta MD #### CELP #### [address] [address] Manager Engine: Zac Servin MD Bilirubin [Mass/Vol] 0.3 mg/dL Normal 0.3-1.2 [facility] Comment on above: Performed By: #### C PBILC, CDP, LIP #### [facility] [address] [place] [address] Dr. [place], [place] [phone] Manager Engine: Remy Zavaleta MD #### CELP #### [address] [phone] Manager Engine: Zac Servin MD Bilirubin, Indirect Can not be calculated Normal 0.0-1 .0 [facility] Comment on above: Performed By: #### C PBILC, CDP, LIP #### [facility] [address] [place], [place] [phone] Manager Engine: Remy Zavaleta MD #### CELP #### [address] [address] Manager Engine: Zac Sevrin MD Bilirubin.indirect [Mass/Vol] mg/dL Normal <0.3 [facility] Comment on above: Performed By: #### C PBILC, CDP, LIP #### [facility] [address] [place], [place] [phone] Manager Engine: Remy Zavaleta MD #### CELP #### [address] [address] Manager Engine: Zac Servin MD Calcium [Mass/Vol] 8.9 mg/dL Normal 8.6-10.4 [facility] Comment on above: Performed By: #### C PBILC, CDP, LIP #### [facility] [address] [place], [place] [phone] Manager Engine: Remy Zavaleta MD #### CELP #### [address] [address] Manager Engine: Zac Servin MD Chloride [Moles/Vol] 101 mmol/L Normal 98-107 [facility] Comment on above: Performed By: #### C PBILC, CDP, LIP #### [facility] [address] [place], [place] [phone] Manager Engine: Remy Zavaleta MD #### CELP #### [address] [address] Manager Engine: Zac Servin MD CO2 [Moles/Vol] 27 mmol/L Normal 20-31 [facility] Comment on above: Performed By: #### C PBILC, CDP, LIP #### [facility] [address] [place], [place] 1965883 Manager Engine: Remy Zavaleta MD #### CELP #### [address] [address] Manager Engine: Zac Servin MD Creatinine [Mass/Vol] 0.7 mg/dL Normal 0.5-0.9 [facility] Comment on above: Performed By: #### C NIC MARIANO, LIP #### [facility] [address] [place] [address] [place] [address] Manager Engine: Remy Zavaleta MD #### CELP #### [address] [phone] Manager Engine: Zac Servin MD GFR/1.73 sq M.predicted among non-blacks MDRD (S/P/Bld) [Vol rate/Area] mL/min/{1.73_m2} Normal >60 [facility] Comment on above: Result Comment: These results are not intended for use in patients <18 years of age. eGFR results are calculated without a race factor using the 2020 CKD-EPI equation. Careful clinical correlation is recommended, particularly when comparing to results calculated using previous equations. The CKD-EPI equation is less accurate in patients with extremes of muscle mass, extra-renal metabolism of creatine, excessive creatine ingestion, or following therapy that affects renal tubular secretion. Performed By: #### C NIC MARIANO, LIP #### [address] [place] [address] Manager Engine: Remy Zavaleta MD #### CELP #### [address] [phone] Manager Engine: Zac Servin MD Glucose [Mass/Vol] 135 mg/dL High 70-99 [facility] Comment on above: Performed By: #### C NIC MARIANO, LIP #### [address] [place] [address] Manager Engine: Remy Zavaleta MD #### CELP #### [address] [phone] Manager Engine: Zac Servin MD Potassium [Moles/Vol] 4.1 mmol/L Normal 3.7-5.3 [facility] Comment on above: Performed By: #### C PBILC, CDP, LIP #### [facility] [address] [place] [address] Manager Engine: Remy Zavaleta MD #### CELP #### [address] [address] Manager Engine: Zac Servin MD Protein [Mass/Vol] 7.4 g/dL Normal 6.4-8.3 [facility] Comment on above: Performed By: #### C PBILC, CDP, LIP #### [facility] [address] [place], [place] [phone] Manager Engine: Remy Zavaleta MD #### CELP #### [address] [phone] Manager Engine: Zac Servin MD Sodium [Moles/Vol] 138 mmol/L Normal 135-144 [facility] Comment on above: Performed By: #### C PBILC, CDP, LIP #### [facility] [address] [place], [place] [phone] Manager Engine: Remy Zavaleta MD #### CELP #### [address] [address] Manager Engine: Zac Servin MD Urea nitrogen [Mass/Vol] 12 mg/dL Normal 6-20 [facility] Comment on above: Performed By: #### C PBILC, CDP, LIP #### [facility] [address] [place], [place] 1163083 Manager Engine: Remy Zavaleta MD #### CELP #### [address] [address] Manager Engine: Zac Servin MD Lipaseon 12-26-2023 Lipase [Catalytic activity/Vol] 36 U/L Normal 13-60 [facility] Comment on above: Performed By: #### C PBILC, CDP, LIP #### [facility] [address] [place] [address] Manager Engine: Remy Zavaleta MD #### CELP #### [facility] [address] [place] [address] Manager Engine: Zac Servin MD COMPLETE BLOOD COUNTon 12-12 Erythrocyte distribution width (RBC) [Ratio] 18.2 % High 11.5-15.0 [facility] Comment on above: Performed By: #### C BC CMP, 32712-4, THYR #### [facility] ([id number]) [address], [address] [place] [address] Hematocrit (Bld) [Volume fraction] 42.1 % Normal 35-47 [facility] Comment on above: Performed By: #### C BC CMP, 69098-9, THYR #### [facility] ([id number]) [address], [address] [place] [address] Hemoglobin (Bld) [Mass/Vol] 13.6 g/dL Normal 11.7-15.5 [facility] Comment on above: Performed By: #### C BC, CMP, 58712-9, THYR #### [facility] ([id number]) [address], [address] [place] [address] MCH (RBC) [Entitic mass] 26.3 pg Low 27-34 [facility] Comment on above: Performed By: #### C BC, CMP, 39363-1, THYR #### [facility] ([id number]) [address], [address] [place] [address] MCHC (RBC) [Mass/Vol] 32.4 g/dL Normal 32-36 [facility] Comment on above: Performed By: #### C BC, CMP, 14494-8, THYR #### [facility] ([id number]) [address], [address] [place] [address] MCV (RBC) [Entitic vol] 81 fL Normal 80-100 [facility] Comment on above: Performed By: #### Gino HARRIS CMP, 90618-3, THYR #### [facility] ([id number]) [address], [address] [place] [address] Platelet mean volume (Bld) [Entitic vol] 8.2 fL Normal 7-12 [facility] Comment on above: Performed By: #### Gino HARRIS CMP, 05448-5, THYR #### [facility] ([id number]) [address], [facility] [address] [place] [address] Platelets (Bld) [#/Vol] 338 10*3/uL Normal 150-450 [facility] Comment on above: Performed By: #### Gino HARRIS CMP, 19887-2, THYR #### [facility] ([id number]) [address], [address] [place] [address] RBC COUNT 5.19 X10E12/L Normal 3.80-5.20 [facility] Comment on above: Performed By: #### Gino HARRIS CMP, 97045-2, THYR #### [facility] ([id number]) [address], [address] [place] [address] WBC (Bld) [#/Vol] 7.7 10*3/uL Normal 4.0-11.0 [facility] Comment on above: Performed By: #### Gino HARRIS CMP, 50069-1, THYR #### [facility] ([id number]) [address], [address] [place] [address] COMPREHENSIVE METABOLIC PANE Toribio 12-13-2023 Albumin [Mass/Vol] 4.4 g/dL Normal 3.2-5.3 [facility] Comment on above: Performed By: #### C BC CMP, 23520-5, THYR #### [facility] ([id number]) [address], [address] [place] [address] ALP [Catalytic activity/Vol] 81 U/L Normal 39-130 [facility] Comment on above: Performed By: #### C BC, CMP, 65197-3, THYR #### [facility] ([id number]) [address], [address] [place] [address] ALT [Catalytic activity/Vol] 27 U/L Normal 0-31 [facility] Comment on above: Performed By: #### C BC, CMP, 90892-9, THYR #### [facility] ([id number]) [address], [address] [place] [address] Anion gap [Moles/Vol] 9 mmol/L Normal 5-15 [facility] Comment on above: Performed By: #### C BC, CMP, 74227-4, THYR #### [facility] ([id number]) [address], [address] [place] [address] AST [Catalytic activity/Vol] 20 U/L Normal 0-41 [facility] Comment on above: Performed By: #### Gino BC, CMP, 82882-4, THYR #### [facility] ([id number]) [address], [address] [place] [address] Bilirubin [Mass/Vol] 0.4 mg/dL Normal 0.3-1.2 [facility] Comment on above: Performed By: #### C BC, CMP, 52348-7, THYR #### [facility] ([id number]) [address], [address] [place] [address] Calcium [Mass/Vol] 9.2 mg/dL Normal 8.5-10.5 [facility] Comment on above: Performed By: #### C BC, CMP, 30481-1, THYR #### [facility] ([id number]) [address], [address] [place] [address] Chloride [Moles/Vol] 103 mmol/L Normal 98-109 [facility] Comment on above: Performed By: #### Gino HARRIS CMP, 31799-8, THYR #### [facility] ([id number]) [address], [address] [place] [address] CO2 [Moles/Vol] 26 mmol/L Normal 22-32 [facility] Comment on above: Performed By: #### iGno HARRIS CMP, 09793-2, THYR #### [facility] ([id number]) [address], [address] [place] [address] Creatinine [Mass/Vol] 0.69 mg/dL Normal 0.40-1.00 [facility] Comment on above: Result Comment: METH OD TRACEABLE TO IDMS STANDARD Performed By: #### Gino HARRIS CMP, 76624-1, THYR #### [facility] ([id number]) [address], [address] [place] [address] eGFR (CKD-EPI) NON-RACE DEPENDENT >90 Normal >59 [facility] Comment on above: Result Comment: Reported eGFR is based on the CKD-EPI 1 equation that does not use a race coefficient. Performed By: #### Gino HARRIS CMP, 57618-6, THYR #### [facility] ([id number]) [address], [address] [place] [address] Glucose [Mass/Vol] 128 mg/dL High 65-99 [facility] Comment on above: Performed By: #### Gino HARRIS CMP, 72427-8, THYR #### [facility] ([id number]) [address], [address] [place] [address] Potassium [Moles/Vol] 4.2 mmol/L Normal 3.5-5.0 [facility] Comment on above: Performed By: #### Gino HARRIS, CMP, 10728-5, THYR #### [facility] ([id number]) [address], [address] [place] [address] Protein [Mass/Vol] 7.4 g/dL Normal 6.0-8.0 [facility] Comment on above: Performed By: #### Gino HARRIS CMP, 30505-9, THYR #### [facility] ([id number]) [address], [address] [place] [address] Sodium [Moles/Vol] 138 mmol/L Normal 134-146 [facility] Comment on above: Performed By: #### Gino HARRIS CMP, 99233-2, THYR #### [facility] ([id number]) [address], [address] [place] [address] Urea nitrogen [Mass/Vol] 10 mg/dL Normal 5-23 [facility] Comment on above: Performed By: #### Gino HARRIS, CMP, 40220-5, THYR #### [facility] ([id number]) [address], [address] [place] [address] Lipid 1996 panelon 4 Cholesterol [Mass/Vol] 137 mg/dL Low 150-200 [facility] Comment on above: Performed By: #### Gino HARRIS CMP, 92543-2, THYR #### [facility] ([id number]) [address], [address] [place] [address] Cholesterol in HDL [Mass/Vol] 48 mg/dL Normal >39 [facility] Comment on above: Result Comment: HDL <40 mg/dL - High Risk HDL > or = 40mg/dL- Desirable HDL >60 mg/dL - Negative Risk Performed By: #### Gino BC, CMP, 37906-4, THYR #### [facility] ([id number]) [address], [facility] [address] [place] [address] Cholesterol in LDL [Mass/Vol] 62 mg/dL Normal <130 [facility] Comment on above: Result Comment: LDL <100 mg/dL - Desirable LDL >160 mg/dL - High Risk Performed By: #### Gino BC, CMP, 75773-7, THYR #### [facility] ([id number]) [address] [address] [place] [address] Cholesterol in VLDL [Mass/Vol] 27 mg/dL Normal 0-30 [facility] Comment on above: Performed By: #### iGno BC, CMP, 45746-2, THYR #### [facility] ([id number]) [address], [address] [place] [address] CHOLESTEROL:HDL 2.9 Normal 1.0-5.0 [facility] Comment on above: Performed By: #### Gino BC, CMP, 15363-7, THYR #### [facility] ([id number]) [address] [address] [place] [address] Triglyceride [Mass/Vol] 136 mg/dL Normal 27-150 [facility] Comment on above: Performed By: #### Gino BC, CMP, 48097-4, THYR #### [facility] ([id number]) [address] [address] [place] [address] THYROID PROFILEon 12-13-2023 Free T4 [Mass/Vol] 1.01 ng/dL Normal 0.61-1.60 [facility] Comment on above: Performed By: #### Gino BC, CMP, 10814-0, THYR #### [facility] ([id number]) [address] [facility], [address] [place] [address] TSH 1.81 uIU/mL Normal 0.49-4.67 [facility] Comment on above: Performed By: #### C BC, [facility], 65247-6, THYR #### [facility] ([id number]) [address] [place] [address], [address] [place] [address] XR CHEST 2 VWSon 12-13-2023 XR CHEST 2 VWS XR CHEST 2 VWS HISTORY: SOB (shortness of breath) COMPARISON: None TECHNIQUE: PA and lateral views of the chest. FINDINGS: Cardiopericardial silhouette is within normal limits. No focal consolidative airspace opacities. No pneumothorax. No pleural effusions. IMPRESSION: No acute pulmonary process. Approved by Resident Geovanny Schwartz MD on 12/13/2023 2:04 PM I, Gregg Rogers MD have personally reviewed the image(s) and agree with and/or edited the report Finalized by Gregg Rogers MD on 12/13/2023 2:14 PM Normal [facility] H PYLORI SCREENon 11-20-2023 H. pylori Org specific cx Ql (Ashwini fld) Negative Normal NEG [facility] Comment on above: Performed By: #### 4 4015-6 #### [facility] ([id number]) [address] [place] [address], [address] [place] [address] Surgical Pathologyon 024 Surgical Pathology Normal [facility] Comment on above: Result Comment: [facility] [employer] [facility] [address] [place] [address] Surgical Pathology Consultation Patient Name:RAYA GONZALES:1980 (Age: 43)Gender:FTaken:4Reported:4Physician(s):Marlon Tillman D.O. ([phone])Copy To: Rec. #:[id number]: #[id number] Final Pathologic Diagnosis 1. Duodenal biopsies: Normal duodenal mucosa. No duodenitis, celiac disease or neoplasm identified. 2. Gastric antrum, biopsies: Regeneration of gastric pits, consistent with a chemical reactive gastritis. No intestine metaplasia, dysplasia or H. pylori organisms identified. 3. Distal esophageal biopsies: Low-grade gastroesophagitis, consistent with a reflux disease. Focal intestinal metaplasia. Negative for dysplasia. 4. Hepatic flexure polyp, biopsies: Sessile serrated lesion. Negative for dysplasia. 5. Descending colon polyp, biopsies: Sessile serrated lesion. Negative for dysplasia. 6. Sigmoid colon polyp, biopsies: Fragments of tubular adenoma and hyperplastic polyps. Report Electronically Signed Out formerly [facility]11/22/2023Froylan Sahu M.D. Interpretation performed at [facility], [address] [place] [address], License number: [id number]. Clinical History GERD/rectal bleed. 4. Snared a polyp. 5. Snared a polyp. 6. Snared polyps x3. Gross Description 1. Received in formalin labeled [place], duodenum BX are two light robles soft tissue bits, 0.2 cm each. The specimen is filtered and entirely submitted in a single cassette. (1, ns, [id number],m8) DM. 2. Received in formalin labeled [place], antrum BX are two light robles soft tissue bits, 0.3 and 0.4 cm. The specimen is filtered and entirely submitted in a single cassette. (1, ns, [id number],m8) DM. 3. Received in formalin labeled [place], distal esophagus BX are four light robles soft tissue bits, 0.1-0.2 cm. The specimen is filtered and entirely submitted in a single cassette. (1, ns, [id number],m8) DM. 4. Received in formalin labeled [place], hepatic flexure polyp are four light robles feathery soft tissue bits, 0.1-0.5 cm. The specimen is filtered and entirely submitted in a single cassette. (1, ns, [id number],m8) DM. 5. Received in formalin labeled [place], descending colon polyp are two light robles soft tissue bits, 0.1 and 0.6 cm. The specimen is filtered and entirely submitted in a single cassette. (1, ns, [id number],m8) DM. 6. Received in formalin labeled [place], sigmoid colon polyp are five light robles soft tissue bits, 0.2-0.4 cm. The specimen is filtered and entirely submitted in a single cassette. (1, ns, [id number],m8) DM. dm/11/21/2023NSK Specimen(s) Received 1: Duodenum biopsy 2: Antrum biopsy 3: Distal esophageal biopsy 4: Hepatic flexure polyp 5: Descending colon polyp 6: Sigmoid colon polyp Fee Codes(s): 1; 22298 2; 59328 3; 51889, 3126F 4; 19237 5; 04213 6; [id number] CNPLilliana 02-01-2022 [place] Telephone (RAJANI) RAYA GONZALES ([id number]) 1980 F Date Time Provider Department 02/01/22 JAVIER CORDOVA During your visit today, we recorded the following information about you: Oma Arce LPN 02/01/2022 9:24 AM Signed Stated the prozac that I started last week is making me edgy and I cried 3 x yesterday. I usually take at night . Allergies As of Date: 02/01/2022 (Not on File) Date Reviewed: Never Reviewed Reason for Visit: Medication Problem [65] Problem List As Of Date: 02/01/2022 (None) Encounter Status:Closed by OMA ARCE on 02/10/22 [facility] ERRONEOUSENCon 02-01-2022 ERRONEOUSENC [id number] Tia Gonzales sa 1980 F * Clinical document posted in Error * Encounter Type Conversion History User Instant Changed From Changed To MARY WALDEN Feb 10, 2022 3* Telephone Erroneous* [facility] Vital Signs Date Time Vital Sign Value Performing Clinician Facility 07-30-2024 13:03-0500 Body height 162.6 cm Elvi Chapman MD Work Phone: [facility] 07-30-2024 13:03-0500 Body mass index (BMI) [Ratio] 46.59 kg/m2 Elvi Chapman MD Work Phone: [facility] 07-30-2024 13:03-0500 Body weight 123.11 kg Elvi Chapman MD Work Phone: [facility] 07-30-2024 13:03-0500 Diastolic blood pressure 102 mm[Hg] Elvi Chapman MD Work Phone: [facility] 07-30-2024 13:03-0500 Systolic blood pressure 158 mm[Hg] Elvi Chapman MD Work Phone: [facility] 07-09-2024 14:11-0500 Body height 162.6 cm Elvi Chapman MD Work Phone: [facility] 07-09-2024 14:11-0500 Body mass index (BMI) [Ratio] 47.03 kg/m2 Elvi Chapman MD Work Phone: [facility] 07-09-2024 14:11-0500 Body weight 124.29 kg Elvi Chapman MD Work Phone: [facility] 07-09-2024 14:11-0500 Diastolic blood pressure 78 mm[Hg] Elvi Chapman MD Work Phone: [facility] 07-09-2024 14:11-0500 Systolic blood pressure 124 mm[Hg] Elvi Chapman MD Work Phone: 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 06-19-2024 14:21-0500 Body mass index (BMI) [Ratio] 47.03 kg/m2 [facility] Hazmat Tanker Driver [facility] 06-19-2024 14:21-0500 Body weight 124.29 kg [facility] Hazmat Tanker Driver [facility] 06-19-2024 14:21-0500 Diastolic blood pressure 98 mm[Hg] [facility] Hazmat Tanker Driver [facility] 06-19-2024 14:21-0500 Systolic blood pressure 150 mm[Hg] [facility] 06-12-2024 14:06-0500 Body height 162.6 cm [facility] 06-12-2024 14:06-0500 Body mass index (BMI) [Ratio] 30.38 kg/m2 [facility] 06-12-2024 14:06-0500 Body weight 80.29 kg [facility] 06-12-2024 14:06-0500 Diastolic blood pressure 92 mm[Hg] [facility] 06-12-2024 14:06-0500 Systolic blood pressure 140 mm[Hg] [facility] 05-31-2024 14:54-0400 Body height 162.6 cm Ekaterina Villegas APRN-PULPER Work Phone: [facility] 05-31-2024 14:54-0400 Body mass index (BMI) [Ratio] 49.68 kg/m2 Ekaterina Villegas RESPIRATORY TECH-PULPER Work Phone: [facility] 05-31-2024 14:54-0400 Body weight 131.27 kg Ekaterina Villegas RESPIRATORY TECH-PULPER Work Phone: [facility] 05-31-2024 14:54-0400 Diastolic blood pressure 85 mm[Hg] Ekaterina Villegas RESPIRATORY TECH-PULPER Work Phone: [facility] 05-31-2024 14:54-0400 Heart rate 85 /min Ekaterina Villegas RESPIRATORY TECH-PULPER Work Phone: [facility] 05-31-2024 14:54-0400 Systolic blood pressure 146 mm[Hg] Ekaterina Villegas RESPIRATORY TECH-PULPER Work Phone: [facility] 11-17-2023 13:49-0400 Body height 162.6 cm Yojana Phan MD PhD Work Phone: [facility] 11-17-2023 13:49-0400 Body mass index (BMI) [Ratio] 47.89 kg/m2 Yojana Phan MD PhD Work Phone: [facility] 11-17-2023 13:49-0400 Body weight 126.55 kg Yojana Phan MD PhD Work Phone: [facility] 11-17-2023 13:49-0400 Diastolic blood pressure 88 mm[Hg] Yojana Phan MD PhD Work Phone: [facility] 11-17-2023 13:49-0400 Heart rate 90 /min Yojana Phan MD PhD Work Phone: [facility] 11-17-2023 13:49-0400 Respiratory rate 20 /min Yojana Phan MD PhD Work Phone: [facility] 11-17-2023 13:49-0400 Systolic blood pressure 138 mm[Hg] Yojana Phan MD PhD Work Phone: [facility] Encounters Encounter Date Encounter Type Care Provider Facility Start: 08-05-2024 End: 08-05-2024 Telephone encounter Elvi Chapman MD Work Phone: [facility] Start: 07-30-2024 End: 07-30-2024 Office outpatient visit 15 minutes Elvi Chapman MD Work Phone: [facility] Comment on above: DUB (dysfunctional u terine bleeding) (Primary Dx) Start: 07-30-2024 End: 08-01-2024 ambulatory [facility] Start: 07-15-2024 End: 07-15-2024 ambulatory [facility] Start: 07-15-2024 End: 07-15-2024 ambulatory [facility] Start: 07-09-2024 End: 07-09-2024 ambulatory [facility] Start: 07-09-2024 End: 07-09-2024 Office outpatient visit 25 minutes Elvi Chapman MD Work Phone: 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 Comment on above: Well woman exam with routine gynecological exam (Primary Dx); Cervical smear, as part of routine gynecological examination; Standardized adult depression screening tool completed; Anxiety and depression Start: 06-19-2024 End: 06-19-2024 ambulatory [facility] Start: 06-19-2024 End: 06-19-2024 Encounter for gynecological examination (general) (routine) without abnormal findings [facility] Start: 06-19-2024 End: 06-19-2024 ambulatory [facility] Start: 06-19-2024 Encounter for gynecological examination (general) (routine) without abnormal findings [facility] Start: 06-17-2024 End: 06-17-2024 ambulatory EKATERINA VILLEGAS [facility] Start: 06-12-2024 End: 06-12-2024 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 Comment on above: Abnormal uterine ble eding (AUB) (Primary Dx); Vaginal lesion Start: 06-12-2024 End: 06-12-2024 ambulatory [facility] Start: 06-12-2024 End: 06-18-2024 Telephone encounter Khadijah Foreman RN [facility] Comment on above: New Patient Start: 05-31-2024 End: 05-31-2024 ambulatory EKATERINA [facility] Start: 05-31-2024 End: 05-31-2024 Office outpatient visit 40 minutes Ekaterina Bakari RESPIRATORY TECH-PULPER Work Phone: [facility] Comment on above: Numbness (Primary Dx ); Abnormal brain MRI; Primary hypertension; Smoking addiction Start: 05-29-2024 End: 05-29-2024 Telephone encounter Etta Bartona [facility] Start: 05-15-2024 End: 05-16-2024 Telephone encounter Chante [facility] Comment on above: 05/16 bakari Start: 05-09-2024 End: 05-15-2024 Telephone encounter [facility] Comment on above: 09/05 guadalupe Start: 03-05-2024 End: 03-05-2024 ambulatory [facility] Start: 02-27-2024 End: 02-27-2024 ambulatory [facility] Start: 01-30-2024 End: 01-31-2024 Emergency department patient [facility] Start: 01-30-2024 End: 01-30-2024 Emergency department patient visit [facility] Start: 01-30-2024 End: 01-31-2024 Emergency department patient visit [facility] Start: 01-26-2024 End: 01-26-2024 ambulatory [facility] Start: 01-23-2024 End: 01-23-2024 ambulatory [facility] Start: 01-03-2024 End: 01-04-2024 Emergency department patient visit CHARLIE YOUNG [facility] Start: 01-02-2024 End: 01-04-2024 ambulatory [facility] Start: 01-02-2024 End: 01-04-2024 Subsequent hospital visit by physician [facility] Ultrasound Room [facility] Ultrasound Comment on above: RUQ abdominal pain Start: 12-26-2023 End: 12-26-2023 [facility] Start: 12-14-2023 End: 12-14-2023 ambulatory ENMA PURCELL [facility] Start: 12-13-2023 End: 12-13-2023 ambulatory [facility] Start: 11-21-2023 End: 11-21-2023 Evaluation and management of inpatient LILY SNELL [facility] Start: 11-20-2023 End: 11-21-2023 Evaluation and management of inpatient MARLON TILLMAN [facility] Start: 11-17-2023 End: 11-18-2023 ambulatory YOJANA SERRA [facility] Start: 11-17-2023 End: 11-17-2023 Office outpatient new 60 minutes Yojana Phan MD PhD Work Phone: [facility] Comment on above: Polyneuropathy (Prim brianna Dx); Vertigo; Balance problem; Cataract of right eye, unspecified cataract type; Multiple sclerosis (Multi) Start: 11-14-2023 End: 11-14-2023 ambulatory [facility] Start: 11-01-2023 End: 11-01-2023 ambulatory JANELL GARDNER [facility] Start: 10-10-2023 Telephone encounter Janell Gardner RESPIRATORY TECH-PULPER Work Phone: 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 Tanker Driver Start: 06-19-2024 Microscopic observat ion [Identifier] in Cervix by Cyto stain Elvi Chapman MD Work Phone: Start: 05-31-2024 Follow-up visit Follow-up NAVI ZAPIEN Start: 05-31-2024 Adult depression scr eening assessment Ekaterina Villegas RESPIRATORY TECH-PULPER Work Phone: Start: 03-05-2024 Mammography [facility] Start: 01-26-2024 Adult depression scr eening assessment Chante Rowell Start: 01-02-2024 Us abdominal real ti me w/image limited Adeline R Alejandro RESPIRATORY TECH - PULPER Work Phone: Start: 11-20-2023 Colonoscopy Chante So viar Start: 10-23-2020 Adult depression scr eening assessment Janell Gardner RESPIRATORY TECH-PULPER Work Phone: Plan of Treatment Date Care Activity Detail Author Start: 2041 RSV patient s and/or patients aged 60+ years (1 - 1-dose 60+ series) RSV patients and/or patients aged 60+ years (1 - 1-dose 60+ series) [facility] Start: 2031 Zoster Vaccines (1 of 2) Zoster Vacc esvin (1 of 2) [facility] Start: 11-19-2028 Screening for malign ant neoplasm of colon Colonoscopy [facility] Start: 06-19-2027 Screening for malign ant neoplasm of cervix Pap Smear [facility] Start: 07-30-2025 Adult BMI Screening Adult BMI Screen ing [facility] Start: 07-30-2025 Tobacco Screening Tobacco Screening [facility] Start: 07-09-2025 Adult BMI Screening Adult BMI Screen ing [facility] Start: 07-09-2025 Tobacco Screening Tobacco Screening [facility] Start: 06-19-2025 Adult BMI Follow Up Plan Adult BMI F ollow Up Plan [facility] Start: 06-19-2025 Adult BMI Screening Adult BMI Screen ing [facility] Start: 06-19-2025 Depression Screening Depression Scre ening [facility] Start: 06-19-2025 Tobacco Screening Tobacco Screening [facility] Start: 06-12-2025 Adult BMI Screening Adult BMI Screen ing [facility] Start: 06-12-2025 Tobacco Screening Tobacco Screening [facility] Start: 05-31-2025 Adult BMI Screening Adult BMI Screen ing [facility] Start: 05-31-2025 Depression Screening Depression Scre ening [facility] Start: 05-31-2025 Tobacco Screening Tobacco Screening [facility] Start: 03-05-2025 Screening for malign ant neoplasm of breast Mammogram [facility] Start: 02-26-2025 Adult BMI Screening Adult BMI Screen ing [facility] Start: 01-29-2025 Tobacco Screening Tobacco Screening [facility] Start: 01-25-2025 Depression Screening Depression Scre ening [facility] Start: 12-24-2024 End: 12-24-2024 Patient encounter procedure 12/24/2024 2:30 PM EDT Office Visit [facility] [address] [place] [address] [place] [phone] Chin Edward MD [address] [place] [address], [address] [phone] [facility] Start: 09-09-2024 End: 09-09-2024 Admission to same day surgery center 09/09/2024 1:30 PM EST - 09/09/2024 2:30 PM EST Surgery [facility] Surgery [address] [place] [phone] Elvi Chapman MD Formerly [facility] [place], [place] [id number] HYSTEROSCOPY DILATION CURETTAGE ABLATION ENDOMETRIAL NOVASURE [48849 (CPT )] [facility] Comment on above: HYSTEROSCOPY DILATIO N CURETTAGE ABLATION ENDOMETRIAL NOVASURE [48406 (CPT )] Start: 09-09-2024 End: 09-09-2024 Hysteroscopy endometrial ablation HYSTEROSCOPY DILATION CURETTAGE ABLATION ENDOMETRIAL NOVASURE heavy periods 09/09/2024 1:30 PM EST [facility] Start: 09-09-2024 Subsequent hospital visit by physician 09/09/2024 1:30 PM EST Hospital Encounter [facility] Surgery [address] [place] [phone] Elvi Chapman MD [address] [place], [place] [phone] [facility] - Surgery Start: 08-20-2024 End: 08-20-2024 Patient encounter procedure 08/20/2024 1:30 PM EST Procedure visit [facility] - Pre Admit [address] [place] [phone] [facility] Pre Ad[facility] Start: 07-18-2024 End: 07-18-2024 Patient encounter procedure 07/18/2024 2:30 PM EST Office Visit [facility] [address] [place] [phone] Chin Edward MD [address] [place] [address], [address] [phone] [facility] Start: 07-18-2024 End: 07-18-2024 Patient encounter procedure 07/18/2024 11:45 AM EST Office Visit [facility] [address] [place] [phone] [place] [address] [place] [id number] [facility] Start: 07-15-2024 End: 07-15-2024 Patient encounter procedure [facility] Start: 07-04-2024 End: 07-04-2024 Clinical Support 07/04/2024 2:30 PM EST Clinical Support [facility] [address] [place] [phone] [facility] Start: 06-19-2024 End: 06-19-2024 Patient encounter procedure 06/19/2024 2:30 PM EST [facility] [address] [place] [address] [facility] Start: 06-19-2024 End: 06-19-2025 Cytopathology procedure, preparation of smear, genital source Pap Smear Pathology and Cytology Routine Cervical smear, as part of routine gynecological examination Expected: 06/19/2024 (Approximate), Expires: 06/19/2025 [facility] Work Phone: Comment on above: Expected: 06/19/2024 (Approximate), Expires: 06/19/2025 Start: 06-13-2024 End: 06-13-2024 Patient encounter procedure 06/13/2024 2:30 PM EST Appointment [facility] - Ultrasound [address] [place] [address] [facility] Ultrasound Start: 06-12-2024 End: 06-12-2024 Patient encounter procedure 06/12/2024 2:15 PM EST Office Visit [facility] [place] [address] [place] [address] [facility] Start: 06-12-2024 End: 06-12-2025 Herpes simplex virus by PCR,Lesion Herpes simplex virus by PCR,Lesion Lab Routine Vaginal lesion Expected: 06/12/2024 (Approximate), Expires: 06/12/2025 [facility] Comment on above: Expected: 06/12/2024 (Approximate), Expires: 06/12/2025 Start: 06-12-2024 End: 06-12-2025 US Pelvis transvaginal Ultrasound transvaginal non OB Imaging Routine Abnormal uterine bleeding (AUB) Expected: 06/12/2024, Expires: 06/12/2025 [facility] Comment on above: Expected: 06/12/2024 , Expires: 06/12/2025 Start: 05-31-2024 End: 05-31-2024 Patient encounter procedure 05/31/2024 2:30 PM EDT Office Visit [facility] [address] [place] [place] [address] Ekaterina Villegas RESPIRATORY TECH-PULPER [address] [place] [address] [facility] Start: 05-16-2024 End: 05-16-2024 Patient encounter procedure 05/16/2024 2:30 PM EDT Office Visit [facility] [address] [place] [phone] Ekaterina Villegas, RESPIRATORY TECH-PULPER [address] [place] [address] [facility] Start: 03-31-2024 Influenza vaccination [facility] Start: 02-29-2024 Influenza vaccination Flu vacc ine (Season Ended) [facility] Start: 01-23-2024 End: 01-23-2024 Patient encounter procedure 01/23/2024 4:00 PM EDT Office Visit [facility] Part of [address] [place] [phone] Adeline Florentino, RESPIRATORY TECH - PULPER [address] [place] [address] 4 weeks [facility] Part of [facility] Comment on above: 4 weeks Start: 11-21-2023 Adult BMI Screening Adult BMI Screen ing [facility] Start: 11-21-2023 Tobacco Screening Tobacco Screening [facility] Start: 11-17-2023 End: 11-16-2024 CBC W Auto Differential panel - Blood CBC and Auto Differential Lab Routine Polyneuropathy Expected: 11/17/2023 (Approximate), Expires: 11/16/2024 [facility] Work Phone: Comment on above: Expected: 11/17/2023 (Approximate), Expires: 11/16/2024 Start: 11-17-2023 End: 11-16-2024 Cobalamin (Vitamin B12) [Mass/volume] in Serum or Plasma Vitamin B12 Lab Routine Polyneuropathy Expected: 11/17/2023 (Approximate), Expires: 11/16/2024 [facility] Work Phone: Comment on above: Expected: 11/17/2023 (Approximate), Expires: 11/16/2024 Start: 11-17-2023 End: 11-16-2024 Comprehensive metabolic 2000 panel - Serum or Plasma Comprehensive Metabolic Panel Lab Routine Polyneuropathy Expected: 11/17/2023 (Approximate), Expires: 11/16/2024 [facility] Work Phone: Comment on above: Expected: 11/17/2023 (Approximate), Expires: 11/16/2024 Start: 11-17-2023 End: 11-16-2024 Hemoglobin A1c/Hemoglobin.total in Blood Hemoglobin A1C Lab Routine Polyneuropathy Balance problem Expected: 11/17/2023 (Approximate), Expires: 11/16/2024 [facility] Work Phone: Comment on above: Expected: 11/17/2023 (Approximate), Expires: 11/16/2024 Start: 11-17-2023 End: 11-16-2024 MR Brain WO and W contrast IV MR brain w and wo IV contrast Imaging Routine Polyneuropathy Vertigo Balance problem Expected: 11/17/2023, Expires: 11/16/2024 [facility] Service Area Work Phone: Comment on above: Expected: 11/17/2023 , Expires: 11/16/2024 Start: 11-17-2023 End: 11-16-2024 Protein electrophoresis panel - Serum or Plasma Serum Protein Electrophoresis Lab Routine Polyneuropathy Expected: 11/17/2023 (Approximate), Expires: 11/16/2024 [facility] Work Phone: Comment on above: Expected: 11/17/2023 (Approximate), Expires: 11/16/2024 Start: 11-17-2023 End: 11-16-2024 TSH with reflex to Free T4 if abnormal TSH with reflex to Free T4 if abnormal Lab Routine Polyneuropathy Balance problem Expected: 11/17/2023 (Approximate), Expires: 11/16/2024 [facility] Work Phone: Comment on above: Expected: 11/17/2023 (Approximate), Expires: 11/16/2024 Start: 11-01-2023 End: 11-01-2023 Patient encounter procedure 11/01/2023 3:00 PM EDT Office Visit [facility] [address] [place] [phone] Janell Gardner, RESPIRATORY TECH-PULPER [address] [facility] [place], [place] [phone] [facility] General [facility] Start: 03-31-2023 COVID-19 Vaccine ( season) COVID-19 Vaccine ( season) [facility] Start: 03-31-2023 Influenza vaccination Influenza Vacc ine [facility] Start: 10-23-2021 Depression Screening Depression Scre ening [facility] Start: 2021 Lipid panel Lipids [facility] Start: 2021 Screening for malign ant neoplasm of breast [facility] Start: 02-16-2016 Diabetes screen Diabetes screen [facility] Start: 2011 Screening for malign ant neoplasm of cervix [facility] Start: 2003 DTaP/Tdap/Td Vaccine s (1 - Tdap) DTaP/Tdap/Td Vaccines (1 - Tdap) [facility] Start: 2002 Screening for malign ant neoplasm of cervix [facility] Start: 02-16-2000 DTaP,Tdap and Td Vac cines (1 - Tdap) DTaP,Tdap and Td Vaccines (1 - Tdap) [facility] Start: 02-16-2000 DTaP/Tdap/Td vaccine (1 - Tdap) DTaP/Tdap/Td vaccine (1 - Tdap) [facility] Start: 02-16-2000 Hepatitis B Vaccines (1 of 3 - 19+ 3-dose series) Hepatitis B Vaccines (1 of 3 - 19+ 3-dose series) [facility] Start: 1999 Adult BMI Follow Up Plan Adult BMI F ollow Up Plan [employer] Start: 1999 Diabetes mellitus screening Diabetes Screening [facility] [facility] Start: 1999 Hepatitis C screening [facility] Start: 02-16-1996 HIV screening HIV screen [facility] Start: 1994 Varicella vaccination Varicell a Vaccines (1 of 2 - 13+ 2-dose series) [facility] Start: 1993 Depression Screen Depression Screen [facility] Start: 1987 Pneumococcal Vaccine : Pediatrics (0 to 5 Years) and At-Risk Patients (6 to 64 Years) (1 of 2 - PCV) Pneumococcal Vaccine: Pediatrics (0 to 5 Years) and At-Risk Patients (6 to 64 Years) (1 of 2 - PCV) [facility] Start: 1982 MMR Vaccines (1 of 1 - Standard series) MMR Vaccines (1 of 1 - Standard series) [facility] Start: 1982 Varicella vaccine (1 of 2 - 2-dose childhood series) Varicella vaccine (1 of 2 - 2-dose childhood series) [facility] Start: 1981 COVID-19 Vaccine (#1) COVID-19 Vacci ne (#1) [facility] Start: 1981 Hepatitis B vaccine (1 of 3 - 3-dose series) Hepatitis B vaccine (1 of 3 - 3-dose series) [facility] Start: 1981 HIV screening HIV Screening [facility] Start: 1981 Lipid panel Lipid Panel [facility] Start: 1981 [facility] Start: 1981 Yearly Adult Physical Yearly Adult P hysical [facility] End: 06-13-2025 CBC panel - Blood by Automated count CBC without diff Lab Routine Abnormal uterine bleeding (AUB) 1 Occurrences starting 06/12/2024 until 06/13/2025 [employer] Work Phone: Comment on above: 1 Occurrences starti ng 06/12/2024 until 06/13/2025 End: 05-31-2025 Hemoglobin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 legs. She feels like there are bugs crawling on her legs and arms. In her legs, sensation is from the hips down bilaterally. In arms, it is from the shoulders down bilaterally. The pain is most bothersome at night. She's never been on medicines for this pain. She also has poor balance. This began about 2 years ago and has been worsening. She says she falls in the bathtub when she closes her eyes while showering. She has more trouble walking when the lights are off and endorses difficulty feeling her legs. Denies coordination issues. Notes dizziness when she bends down, stands up quickly, or moves head quickly. Also occurs when she moves too fast. Feels like she is spinning. Dizziness last 3-5 seconds. Happens several times a day. She endorses headaches. Endorses poor memory. Loses her train of though easily. Has staring spells. Has increased urinary frequency. Doesn't feel like she can fully empty her bladder. Urinates every hour over night. Has urinary urge incontinence if she doesn't get to the bathroom in time. She sometimes urinate if she laughs or coughs. Has never seen a urologist for it. She's had 3 vaginal deliveries. Past medical history: GERD History of choledocholithiasis Hemorrhoids Allergies: None No past surgical history on file. Social History Tobacco Use Smoking status: Every Day Current packs/day: 0.50 Average packs/day: 0.5 packs/day for 29.0 years (14.5 ttl pk-yrs) Types: Cigarettes Start date: 11/16/1994 Passive exposure: Never Smokeless tobacco: Never Substance Use Topics Alcohol use: Not Currently Not currently working. Lives with [facility]. Lives in [place], [place]. Feels safe at home. Not on File Visit Vitals BP 138/88 Pulse 90 Resp 20 Ht 1.626 m (5' 4 ) Wt 127 kg (279 lb) BMI 47.89 kg/m Smoking Status Every Day BSA 2.4 m Pulse ox: 93% Objective Neurological Exam Physical Exam GENERAL: Resting comfortably, no acute distress HENT: No eye redness or conjunctival injection. CARDIO: Warm and well-perfused PULM: Inspiratory and expiratory wheezing. ABD: Soft, nontender, bowel sounds active, no guarding/rigidity/rebound tenderness MENTAL STATE: Orientation was normal to person, place, situaiton, date. Recent and remote memory was intact. Attention span and concentration were normal. Language testing was normal for comprehension, naming, repetition and expression. General fund of knowledge was intact. Able to recite the days of the week in reverse order. OPHTHALMOSCOPIC: Unable to visualize fundi in right eye due to cataract. In the left eye, optic disc margins were normal with clear vessels. No optic disc edema. No hemorrhages or exudates appreciated. CRANIAL NERVES: CN 2 Visual castillo full to confrontation. CN 3, 4, 6 right pupil RAPD with presence of cataract, 4 mm. Left pupil is 4 mm in diameter, and reactive. Lids symmetric; no ptosis. EOMs normal alignment, full range with normal saccades, pursuit and convergence. No nystagmus. Right eye exotropia. CN 5 Facial sensation intact bilaterally to light touch CN 7 Normal and symmetric facial strength. Nasolabial folds symmetric. CN 8 Hearing intact to conversation. CN 9 Palate elevates symmetrically. CN 11 Normal strength of shoulder shrug. CN 12 Tongue midline, with normal bulk and strength; no fasciculations. MOTOR: Muscle bulk was normal and tone was normal in both upper and lower extremities. No adventitious movements. R L Delt 5 5 Bicep 5 5 Tricep 5 5 Wrist Flex 5 5 Wrist Ext 5 5 Hospital Insurance Clerk 5 5 Thumb abd 5 5 Hip Flex 5- 5- Hip Add 5 5 Hip Abd 5 5 Leg Ext 5- 5- Leg Flex 5- 5- DF 5 5 PF 5 5 REFLEXES: R L BR: 2+ 2+ Biceps: 2+ 2+ Triceps: 2+ 2+ Knee: 2+ 2+ Ankle: 1 0 No ankle clonus. SENSORY: In upper extremities, proprioception diminished at the finger. Vibration intact. Decreased sensation to pinprick to the middle forearms bilaterally. In the lower extremities, proprioception diminished at the hallux. Vibration diminished at bilateral hallux and normal at medial malleolus. Decree sensation to pinprick to the middle hudson bilaterally. COORDINATION: In both upper extremities, cjgyti-hsvj-lloxzl was intact without dysmetria or overshoot. In both lower extremities, ztjc-tb-szht was intact. On rapid alternating movements, movements were slow but no freezing or decrement. THEERSA-HALLPIKE: Used Frenzel goggles and was able to elicit vertigo with right ear down and left ear down but no nystagmus appreciated. GAIT: Gait was abnormal. Waddling gait with minimal knee flexion. Some circumduction present bilaterally. Romberg positive with eyes open. Able to walk on heels and walk on toes. Tandem gait with significant imbalance and falls to either side. Relevant labs: No prior hemoglobin A1c available to review No prior vitamin B12 or TSH serum level available Prior imaging: Reviewed the report from prior MRI from September 2020 which reports multiple T2/FLAIR hyperintensities in the periventricular white matter. Due to inability to see images as they are not available in our system, cannot determine if these white matter lesions are consistent with multiple sclerosis or microvascular ischemia. Assessment/Plan Ms. Gonzales is a 43 y.o. year old right handed female with a history of GERD, hemorrhoids, prior choledocholithiasis and pancreatitis that presents for evaluation of extremity pain, balance issues, and dizziness. Today she presents with an approximately 1 year history of worsening tingling and aching pain in her extremities as well as frequent falls due to balance issues and intermittent, short lasting, positional vertigo. Her exam is notable for decreased pinprick to mid forearm and mid hudson bilaterally with decreased proprioception in toes and fingers, impaired vibration in the feet, positive Romberg, and right pupil RAPD in the setting of right eye cataract. Her sensory symptoms are most consistent with a length-dependent polyneuropathy with underlying etiology to be determined but at this time suspect secondary to diabetes given prior elevated blood sugars. Her vertigo symptoms are reproducible with Theresa-Hallpike maneuver but no nystagmus reproduced therefore not consistent with BPPV. It is unclear at this time why she did not have any intervention on the right eye cataract therefore will refer to ophthalmology for further evaluation and management. Given that there were these white matter changes seen on brain MRI in 2020, will repeat an MRI to make sure that her constellation of symptoms are not secondary to demyelinating disease. Impression: #Length dependent polyneuropathy #Vertigo #Right eye cataract Plan: -Neuropathy labs: CBC with differential, CMP, B12, TSH, hemoglobin A1c, serum protein electrophoresis -Obtain MRI brain with and without contrast -Start gabapentin, provided taper to 300 mg 3 times daily -Referral to ophthalmology for right eye cataract -Follow-up with primary care provider to evaluate for diabetes, asthma, COPD. Can consider referral to urogynecology for urinary urge incontinence. Maribell Cameron MD PGY-2 Neurology No orders of the defined types were placed in this encounter. Associated attestation - Yojana Phan MD PhD - 11/17/2023 8:46 PM EDT I have seen and evaluated the patient with Dr. Cameron, I agree with the assessment and plan, which were formulated with my direct input. Advised patient to go to the ER if worsening breathing. documented in this encounter [facility] Work Phone: 11-17-2023 Instructions Maribell Cameron MD - 11/17/2023 1:30 PM EDT Dear Raya Gonzales, You were seen today by Dr. Phan and Dr. Cameron for evaluation of pain in your limbs and balance problems. We think the pain and burning in your arms and legs is due to neuropathy. We are going to get blood work to determine why this is happening. We believe the neuropathy is causing your pain and your balance issues. We are also going to repeat an MRI of your brain to evaluate you further for multiple sclerosis. Please call Radiology Scheduling at to arrange this MRI. We are going to start you on a medication for neuropathy called gabapentin. This medication can make you feel sleepy. Please take as following: -Week 1: 100 mg tablet at night -Week 2: 100 mg tablet three times a day -Week 3: Take two 100 mg tablets three times a day -Week 4 and onwards: Take three 100 mg tablets three times a day If you are tolerating the gabapentin at 300 mg, three times a day, your primary care provider can increase the dose in the future. We are also going to refer you to the eye doctor to evaluate the right eye cataract that you have. Please follow-up with your primary care doctor. Please discuss the following: -Diabetes: Review the hemoglobin A1c lab we sent and electrolyte panel -COPD and Asthma: Discuss initiation of inhalers for your wheezing -Referral to Uro-gynecology for your urinary incontinence symptoms We will call you with the results of your MRI and discuss when to follow-up with us in clinic. We wish you all the mansi, [facility] Neurology Team The following attachments cannot be sent through Care Everywhere.Peripheral Neuropathy (Malaysian)documented in this encounter [facility] Work Phone: 10-10-2023 Miscellaneous Notes Called Raya regarding the hemorrhoid referral that our office received from Seven Bowden NP, I was unable to leave a message as the voicemail box has not been set up yet. Raya called the office back and we scheduled her an appointment on 11/01/2023. documented in this encounter [facility] 10-10-2023 Telephone encounter Note Called Raya regarding the hemorrhoid referral that our office received from Seven Bowden NP, I was unable to leave a message as the voicemail box has not been set up yet. [facility] 10-10-2023 Telephone encounter Note Raya called the office back and we scheduled her an appointment on 11/01/2023. [facility] Evaluation note Diagnosis Polyneuropathy- Primary Unspecified hereditary and idiopathic peripheral neuropathy Vertigo Dizziness and giddiness Balance problem Abnormality of gait Cataract of right eye, unspecified cataract type Multiple sclerosis (Multi) Multiple sclerosis documented in this encounter [facility] Work Phone: Evaluation note* Diagnosis RUQ abdominal pain Abdominal pain, right upper quadrant [facility] Diagnosis Numbness- Primary Disturbance of skin sensation Abnormal brain MRI Nonspecific (abnormal) findings on radiological and other examination of skull and head Primary hypertension Unspecified essential hypertension Smoking addiction [facility]* Diagnosis Abnormal uterine bleeding (AUB)- Primary Vaginal lesion Other specified noninflammatory disorder of vagina [facility]* Diagnosis Well woman exam with routine gynecological exam- Primary Routine gynecological examination Cervical smear, as part of routine gynecological examination Screening for malignant neoplasm of the cervix Standardized adult depression screening tool completed Anxiety and depression documented [facility]* Diagnosis DUB (dysfunctional uterine bleeding)- Primary Other disorder of menstruation and other abnormal bleeding from female genital tract Dysmenorrhea documented in this encounter [facility]* Diagnosis DUB (dysfunctional uterine bleeding)- Primary Other disorder of menstruation and other abnormal bleeding from female genital tract documented in this encounter [facility] SystemInstructionsNot on filedocumented in this encounter [facility] SystemInstructionsNot on filedocumented in this encounter [facility] SystemInstructionsNot on filedocumented in this encounter [facility]Inst[facility]* Attachments The following attachments cannot be sent through Care Everywhere. * Hysterectomy (Malaysian) * Quitting smoking (Malaysian) [facility]* Attachments The following attachments cannot be sent through Care Everywhere. * Quitting smoking (Malaysian) * Bleeding Between Periods (Malaysian) [facility] in [facility] SystemInstructionsNot on file documented in this [facility]Pro[facility] SystemInstructionsNot on file documented in this [facility]Pro[facility] SystemInstructionsNot on file [facility] SystemReason for referral (narrative)* Consultation (Routine) - Authorized Specialty Diagnoses / Procedures Referred By Tara short Referred To Contact Ophthalmology Diagnoses Cataract of right eye, unspecified cataract type Yojana Phan [place] PhD [id number] Department of Neurology [place] [id number] Referral ID Status Reason Start Date Expiration Date Visits Requested Visits Authorized [id number] Authorized Specialty Services Required 11/17/2023 11/16/2024 1 1 * Medications - Pending Review Specialty Diagnoses / Procedures Referred By Tara short Referred To Contact Diagnoses [place] [id number] Department of Neurology/[place] [address] Referral ID Status Reason Start Date Expiration Date V isits Requested Visits Authorized [id number] Pending Review 1 1 * Imaging (Routine) - Pending Review Specialty Diagnoses / Procedures Referred By Tara short Referred To Contact Radiology Diagnoses Polyneuropathy Vertigo Balance problem Procedures MR brain w and wo IV contrast Yojana Phan MD PhD [id number] Department of Neurology [place] [id number] Referral ID Status Reason Start Date Expiration Date Visits Requested Visits Authorized [id number] Pending Review Perform Procedure 11/17/2023 11/16/2024 1 1 [facility] Work Phone: Summary Purpose Family History No Family History Records FoundNo Family History Records FoundNo Family History Records FoundNo Family History Records FoundNo Family History Records FoundNo Family History Records Found Advance Directives Latest Code Status on File Code Status Date Activated Date Inactivated Comments Full Code 11/16/2020 5:42 PM 11/26/2020 3:51 PM Code Status History Code Status Date Activated Date Inactivated Comments Full Code 11/15/2020 1:04 PM 11/16/2020 5:18 PM Full Code 10/23/2020 2:53 AM 10/31/2020 3:52 PM Full Code 10/22/2020 9:22 AM 10/23/2020 1:58 AM Full Code 10/06/2020 4:58 AM 10/13/2020 9:51 PM Date Activated Date Inactivated Comments 11/16/2020 5:42 PM 11/26/2020 3:51 PM Date Activated Date Inactivated Comments 11/15/2020 1:04 PM 11/16/2020 5:18 PM Date Activated Date Inactivated Comments 10/23/2020 2:53 AM 10/31/2020 3:52 PM Date Activated Date Inactivated Comments 10/22/2020 9:22 AM 10/23/2020 1:58 AM Date Activated Date Inactivated Comments 10/06/2020 4:58 AM 10/13/2020 9:51 PM Date Activated Date Inactivated Comments 11/16/2020 5:42 PM 11/26/2020 3:51 PM Date Activated Date Inactivated Comments 11/15/2020 1:04 PM 11/16/2020 5:18 PM Date Activated Date Inactivated Comments 10/23/2020 2:53 AM 10/31/2020 3:52 PM Date Activated Date Inactivated Comments 10/22/2020 9:22 AM 10/23/2020 1:58 AM Date Activated Date Inactivated Comments 10/06/2020 4:58 AM 10/13/2020 9:51 PM Reason for Referral Specialty Diagnoses / Procedures Referred By Tara t Referred To Contact Radiology Diagnoses RUQ abdominal pain Procedures US ABDOMEN LIMITED Adeline Florentino, RESPIRATORY TECH - PULPER [address] [address] Referral ID Status Reason Start Date Expiration Date Visits Re quested Visits Authorized [id number] Open 12/26/2023 12/25/2024 1 1 Additional Source Comments INFORMATION SOURCE (unrecogn ized section and content) DATE CREATED AUTHOR 02/17/2022 [facility] Selina nter DATE CREATED AUTHOR AUTHOR'S ORGANIZ ATION 11/21/2023 [facility] DATE CREATED AUTHOR AUTHOR'S ORGANIZ ATION 01/27/2024 Marilee Celeste [facility] DATE CREATED AUTHOR AUTHOR'S ORGANIZ ATION 06/15/2024 [facility] DATE CREATED AUTHOR AUTHOR'S ORGANIZ ATION 07/27/2024 [facility] DATE CREATED AUTHOR AUTHOR'S ORGANIZ ATION 08/01/2024 [facility] Care Teams (unrecognized sec tion and content) Head Refrigeration Engineer Relationship Specialty Start Date End Date Seven Bowden RESPIRATORY TECH-SELF DEFENSE INSTRUCTOR [address] [place], [place] [phone] PCP - General Family Medicine 10/09/23 Head Refrigeration Engineer Relationship Specialty Start Date End Date Seven Bowden RESPIRATORY TECH - AUTOMOTIVE FINANCE MANAGER [address] [place] [address] PCP - General Nurse Practitioner 12/26/23 Head Refrigeration Engineer Relationship Specialty Start Date End Date Seven Bowden RESPIRATORY TECH-SELF DEFENSE INSTRUCTOR [address] [place] [address] PCP - General Family Medicine 10/09/23 Head Refrigeration Engineer Relationship Specialty Start Date End Date Seven Bowden RESPIRATORY TECH-SELF DEFENSE INSTRUCTOR [address] [place] [address] PCP - General Family Medicine 10/09/23 Head Refrigeration Engineer Relationship Specialty Start Date End Date Seevn Bowden RESPIRATORY TECH-SELF DEFENSE INSTRUCTOR [address] [place] [address] PCP - General Family Medicine 10/09/23 Head Refrigeration Engineer Relationship Specialty Start Date End Date Seven Bowden RESPIRATORY TECH-SELF DEFENSE INSTRUCTOR [address] [place], [place] [phone] PCP - General Family Medicine 10/09/23 Head Refrigeration Engineer Relationship Specialty Start Date End Date Seven Bowden RESPIRATORY TECH-SELF DEFENSE INSTRUCTOR [address] [place] [address] PCP - General Family Medicine 10/09/23 Head Refrigeration Engineer Relationship Specialty Start Date End Date Seven Bowden APRN-SELF DEFENSE INSTRUCTOR [address] [place] [id number] PCP - General Family Medicine 10/09/23 Head Refrigeration Engineer Relationship Specialty Start Date End Date Seven Bowden RESPIRATORY TECH-SELF DEFENSE INSTRUCTOR [address] [place] [id number] PCP - General Family Medicine 10/09/23 Head Refrigeration Engineer Relationship Specialty Start Date End Date Seven Bowden APRN-SELF DEFENSE INSTRUCTOR [address] [place] [id number] PCP - General Family Medicine 10/09/23 Reason for Visit (unrecogniz ed section and content) Reason Comments Consult MULTIPLE SCLEROSIS Specialty Diagnoses / Procedures Referred By Tara short Referred To Contact Radiology Diagnoses RUQ abdominal pain Procedures US ABDOMEN LIMITED Adeline Florentino, RESPIRATORY TECH - PULPER [address] [address] Referral ID Status Reason Start Date Expiration Date Visits Re quested Visits Authorized [id number] Open 12/26/2023 12/25/2024 1 1 Reason Onset Date Comments 2/6 guadalupe 05/09/2024 Reason Onset Date Comments 05/16 bakari 05/15/2024 Reason Comments Follow-up 3 month follow up Reason Comments Menstrual Problem Irregular cycle. Reason Onset Date Comments New Patient 06/12/2024 Reason Comments Gynecologic Exam Pt is here for annua l exam. Reason Comments Menstrual Problem Reason Comments Follow-up FOR RECORDS PERTAINING TO PATIENTS WHO ARE OR HAVE BEEN ENROLLED IN A CHEMICAL DEPENDENCY/SUBSTANCEABUSE PROGRAM, SOME INFORMATION MAY BE OMITTED. This clinical summary was aggregated from multiple sources. Caution should be exercised in using it in the provision of clinical care. This summary normalizes information from multiple sources, and as a consequence, information in this document may materially change the coding, format and clinical context of patient data. In addition, data may be omitted in some cases. CLINICAL DECISIONS SHOULD BE BASED ON THE PRIMARY CLINICAL RECORDS. [facility] Sponsorship [facility]. provides no warranty or guarantee of the accuracy or completeness of information in this document.
[2024-08-11 21:31] VITALS: BP 166/109; PULSE 100; TEMP 36.8; O2SAT 97; BMI 46.2
--- NOTE | 2024-08-11 21:37 | ED_ITS ---
HPI HPI - General Adult General Chief complaint: Dental/Oral Stated complaint: TOOTH PAIN Time Seen by Provider: 08/11/24 21:36 History of Present Illness HPI narrative: 44-year-old female presents here with chief complaint of dental pain. She was seen here on 3 days ago and prescribed antibiotics. She states she did follow-up with a dentist later that day. Not dental. She is scheduled to have her teeth extracted on August 13. No acute facial edema is appreciated. Patient is able to open and close her mouth. She states she has been taking the antibiotics as prescribed but Tylenol is not helping her pain. Related Data Home Medications ?Medication ?Instructions ?Recorded ?Confirmed famotidine 20 mg tablet 20 mg PO DAILY 08/08/24 08/08/24 metformin 500 mg tablet,extended 500 mg PO DAILY 08/08/24 08/08/24 release 24 hr omeprazole 40 mg capsule,delayed 40 mg PO BID 08/08/24 08/08/24 release Previous Rx's ?Medication ?Instructions ?Recorded esomeprazole magnesium 40 mg 40 mg PO DAILY 28 days #28 caps 06/12/23 capsule,delayed release (Nexium) dicyclomine 20 mg tablet 20 mg PO QID PRN abdominal pain 07/10/23 #12 tabs ketorolac 10 mg tablet 10 mg PO TID PRN pain #10 tabs 07/10/23 ondansetron 4 mg disintegrating 4 mg PO Q6H PRN nausea and 07/10/23 tablet vomiting #12 tabs oxycodone-acetaminophen 5 mg-325 1 tab PO Q6H PRN pain 2 days #8 08/08/24 mg tablet (Percocet) tabs penicillin V potassium 500 mg 500 mg PO Q6H 7 days #28 tabs 08/08/24 tablet Allergies Allergy/AdvReac Type Severity Reaction Status Date / Time promethazine (From Phenergan) Allergy Severe Confusion Verified 08/11/24 21:39 Opioid HPI Opioid Management Most Recent Opioid Data: Last Pain Scale 7 07/10/23 15:59 07/10/23 Review of Systems ROS Narrative All Systems are negative except as noted/marked.All systems reviewed and otherwise negative PFSH PFSH Social History Smoking status: Current every day smoker Little interest or pleasure in doing things: not at all Feeling down, depressed, or hopeless: not at all Exam Narrative Exam Narrative: Nurses notes reviewed and patient is noted to be non-hypoxic. General: The patient is comfortable, alert and oriented x3, well appearing, non toxic in no apparent distress. Head: Atraumatic and normocephalic. Eyes: Normal conjunctiva, no exudates. ENT: The oropharynx is normal. No pharyngeal erythema, uvular edema, tonsillar exudates, asymmetry or trismus. Uvula is midline. Mouth is normal to inspection With the exception of a pain on percussion of the tooth # 3and evidence of dental caries. There is no evidence of facial asymmetry or abscess formation. Floor of the mouth is soft. No tenderness in the submental or submandibular space. No tongue elevation or deviation. The patient has no evidence of periapical abscess, gingivitis, ANUG or other acute pathology. Airway is patent. Neck: The neck demonstrates normal range of motion. No meningeals signs are present. No stridor. No masses or lymphandenopathy noted. Respiratory: No acute distress, lungs are clear to auscultation, no wheezing, rhonchi, or rales noted. No stridor or retractions are noted. Cardiovascular: Regular rate and rhythm Skin: The skin exam shows no evidence of rashes Neuro: Alert and oriented x4, normal speech Lymphatic: No cervical lymphadenopathy Constitutional Vital Signs, click to edit/add: Last Vital Signs Temp 98.3 F 08/11/24 21:31 Pulse 100 H 08/11/24 21:31 Resp 18 08/11/24 21:31 BP 166/109 H 08/11/24 21:31 Pulse Ox 97 08/11/24 21:31 O2 Del Method Room Air 08/11/24 21:31 Course Vital Signs Vital signs: Vital Signs Temperature 98.3 F 08/11/24 21:31 Pulse Rate 100 H 08/11/24 21:31 Respiratory Rate 18 08/11/24 21:31 Blood Pressure 166/109 H 08/11/24 21:31 Pulse Oximetry 97 08/11/24 21:31 Oxygen Delivery Method Room Air 08/11/24 21:31 Temperature 98.3 F 08/11/24 21:31 Pulse Rate 100 H 08/11/24 21:31 Respiratory Rate 18 08/11/24 21:31 Blood Pressure 166/109 H 08/11/24 21:31 Pulse Oximetry 97 08/11/24 21:31 Oxygen Delivery Method Room Air 08/11/24 21:31 Medical Decision Making MDM Narrative Medical decision making narrative: Presents here with chief complaint of continued dental pain. She is scheduled to have her teeth removed on the of this month. Patient be medicated here with Toradol and discharged home with dental anesthesia for pain. Patient agrees with plan of care. Continue with antibiotics as prescribed. Patient was discharged home on after being diagnosed with a dental fracture that is old indentation #30. I see no evidence of abscess. Differential Diagnosis Differential Diagnosis: , Tooth ache, dental abscess, caries Medical Records Medical records reviewed: Yes I reviewed the patient's medical records Lab Data Lab results reviewed: Yes I reviewed the patient's lab results Discharge Plan Discharge Chief Complaint: Dental/Oral Clinical Impression: Toothache, Dental caries Patient Disposition: Home, Self-Care Time of Disposition Decision: 21:40 Prescriptions / Home Meds: No Action ketorolac 10 mg tablet 10 mg PO TID PRN (Reason: pain) Qty: 10 0RF dicyclomine 20 mg tablet 20 mg PO QID PRN (Reason: abdominal pain) Qty: 12 0RF ondansetron 4 mg tablet,disintegrating 4 mg PO Q6H PRN (Reason: nausea and vomiting) Qty: 12 0RF esomeprazole magnesium [Nexium] 40 mg capsule,delayed release(DR/EC) 40 mg PO DAILY 28 Days Qty: 28 0RF metformin 500 mg tablet extended release 24 hr 500 mg PO DAILY famotidine 20 mg tablet 20 mg PO DAILY omeprazole 40 mg capsule,delayed release(DR/EC) 40 mg PO BID penicillin V potassium 500 mg tablet 500 mg PO Q6H 7 Days Qty: 28 0RF oxycodone-acetaminophen [Percocet] 5-325 mg tablet 1 tab PO Q6H PRN (Reason: pain) 2 Days Qty: 8 0RF Print Language: Romanian Instructions: Toothache (ED) Additional Instructions: follow up with gael hernandez as scheduled Referrals: Akilah Bowden, [employer] HELPER [Primary Care Provider] - 1 week
[2024-08-11] MEDS: BENZOCAINE 30 ML, lidocaine HCL 15 ML MM (21:56)
[2024-08-11] MEDS: KETOROLAC TROMETHAMINE 60 MG/2 ML VIAL IM (21:57)
== END 2024-08-11 22:02 | disposition home or self-care (01) ==
PROVIDERS: Emergency Provider Emergency Medicine; PCP Nurse Practitioner
DX: K02.9 Dental caries, unspecified (principal); K08.89 Other specified disorders of teeth and supporting structures; F17.200 Nicotine dependence, unspecified, uncomplicated
CPT/HCPCS: 96372; 99284; J1885

== ENCOUNTER 2024-08-12 07:22 | Emergency (ER) | payer OTHER, SELFPAY ==
--- OUTSIDE RECORDS SUMMARY | 2024-08-12 07:29 | XMS_ITS | CCD ---
Author Organization [facility] Care Team Providers Care Bolt Sorter Name Role Phone Cinthya STARCH DUMPER-ENVIRONMENTAL REMEDIATION SPECIALIST, [place] Primary Care Provider Unavailable Primary Care Provider UnavailYOJANA Moran Attending Unavailable Cinthya STARCH DUMPER - HIGH SCHOOL LIBRARY MEDIA SPECIALIST, [place] Primary Care Provider ADELINE FLORENTINO Referring Unavailable [...] Unavailable JOSELINE ANGIE E Referring Unavailable CINTHYA, SEVEN Primary Care Unavailable [...] Promethazine; Translations: [PROMETHAZINE] Drug Allergy 03-26-2020 Other [facility] Medications Current Medications Medication Drug Class(es) Dates Sig (Normalized) Sig (Original) [id number] 200 actuat albuterol 0.09 mg/actuat metered dose [...] before meals. 11/21/2022 Active polyethylene glycol 3350 40179 mg powder for oral solution (2 sources) [...] mouth once daily. 11/01/2023 Active Spacer/Aero-Holding Chambers ([facility]) BANG (1 source) Start: 12-14-2023 Spacer/Aero-Holding Chambers ([facility]) BANG USE DIRECTED WITH INHALER 0 [...] Range Facility Surgical Pathologyon Surgical Pathology Normal [facility] Comment on above: Result Comment: [facility] [address] [place] [address] Surgical Pathology Consultation Patient Name:RAYA GONZALES:1980 (Age: 44)Gender:FTaken:4Reported:4Physician(s):Elvi Chapman M.D. ([phone])Copy To: Rec. #:[id number]: #[id number] Final Pathologic Diagnosis 1. Endocervix - ECC: - Benign surface endocervical lining with focal squamous metaplasia (no dysplasia or neoplasia) 2. Endometrium - biopsy: - Mildly disordered proliferative endometrium (no polyps, hyperplasia or neoplasia) Report Electronically Signed [facility]/07/26/2024Emanuel Islas MD Interpretation [place] [address], License number: [id number]. Clinical History Dysfunctional uterine bleeding (DUB) N93.8. Gross Description 1. Received in formalin labeled VINNY, ECC is a plastic wired brush with robles-brown soft tissue fragments admixed with hemorrhagic and mucoid material, 2.7 x 1.2 x 0.2 cm in aggregate. The specimen is filtered and entirely submitted in a single cassette. (1, ns, [id number],m2) DM. 2. Received in formalin labeled VINNY, EMB robles-brown soft tissue fragments and base with hemorrhagic and mucoid material, 2.7 x 2.3 x 0.3 cm in aggregate. The specimen is filtered and entirely submitted in a single cassette. (1, ns, [id number],m2) DM. Fixation Time: Tissue removed from patient: 1945 Time specimen placed in formalin: 1945 Cold ischemic time: Less than 1 minute Total fixation time: 14-1/2 hours /07/16/2024NS Specimen(s) Received 1: Endocervical curettings 2: Endometrial biopsy Fee Codes(s): 1; 90694 2; 52394 CBC without diffon Erythrocyte distribution width (RBC) [Ratio] 16.8 % High 11.5 - 15.0 % [facility] Hematocrit (Bld) [Volume fraction] 43.3 % 35 - 47 % [facility] Hemoglobin (Bld) [Mass/Vol] 13.8 g/dL 11.7 - 15.5 g/dL [facility] Interpretation and review of laboratory results Abnormal [facility] MCH (RBC) [Entitic mass] 24 pg Low 27 - 34 pg [facility] MCHC (RBC) [Mass/Vol] 32 g/dL 32 - 36 g/dL P [facility] MCV (RBC) [Entitic vol] 75 fL Low 80 - 100 fL [facility] Platelet mean volume (Bld) [Entitic vol] 8 fL 7 - 12 fL [facility] Platelets (Bld) [#/Vol] 382 10*3/uL [facility] RBC (Bld) [#/Vol] 5.77 10*6/uL High [facility] WBC corrected for nucl RBC Auto (Bld) [#/Vol] 9 [facility] COMPLETE BLOOD COUNTon 07-09 Erythrocyte distribution width (RBC) [Ratio] 16.8 % High 11.5-15.0 [facility] Comment on above: Performed By: #### Gino HARRIS CMP, 08829-2, THYR #### [facility] ([id number]) [address], [address] [place] [address] Hematocrit (Bld) [Volume fraction] 43.3 % Normal 35-47 [facility] Comment on above: Performed By: #### Gino HARRIS CMP, 27839-2, THYR #### [facility] ([id number]) [address], [address] [place] [address] Hemoglobin (Bld) [Mass/Vol] 13.8 g/dL Normal 11.7-15.5 [facility] Comment on above: Performed By: #### Gino HARRIS CMP, 52668-7, THYR #### [facility] ([id number]) [address], [address] [place] [address] MCH (RBC) [Entitic mass] 24.0 pg Low 27-34 [facility] Comment on above: Performed By: #### Gino HARRIS CMP, 52928-3, THYR #### [facility] ([id number]) [address], [address] [place] [address] MCHC (RBC) [Mass/Vol] 32.0 g/dL Normal 32-36 [facility] Comment on above: Performed By: #### Gino HARRIS CMP, 55925-3, THYR #### [facility] ([id number]) [address], [address] [place] [address] MCV (RBC) [Entitic vol] 75 fL Low 80-100 [facility] Comment on above: Performed By: #### Gino HARRIS CMP, 62370-7, THYR #### [facility] ([id number]) [address], [address] [place] [address] Platelet mean volume (Bld) [Entitic vol] 8.0 fL Normal 7-12 [facility] Comment on above: Performed By: #### Gino HARRIS CMP, 60368-6, THYR #### [facility] ([id number]) [address], [address] [place] [address] Platelets (Bld) [#/Vol] 382 10*3/uL Normal 150-450 [facility] Comment on above: Performed By: #### Gino HARRIS CMP, 79240-8, THYR #### [facility] ([id number]) [address], [address] [place] [address] RBC COUNT 5.77 X10E12/L High 3.80-5.20 [facility] Comment on above: Performed By: #### Gino HARRIS CMP, 14603-6, THYR #### [facility] ([id number]) [address] [address] [place] [address] WBC (Bld) [#/Vol] 9.0 10*3/uL Normal 4.0-11.0 [facility] Comment on above: Performed By: #### Gino HARRIS CMP, 56508-9, THYR #### [facility] ([id number]) [address], [address] [place] [address] FREE T4on 12-10-2024 Free T4 [Mass/Vol] 0.88 ng/dL Normal 0.61-1.60 [facility] Comment on above: Result Comment: NEW REFERENCE RANGE FOR PEDIATRIC PATIENTS Performed By: #### Gino HARRIS, [facility], 70257-4, THYR #### [facility] ([id number]) [address] [place] [address] Follicle stimulating hormone on 07-09-2024 Follitropin Qn 6.9 m[IU]/mL mIU/mL [facility] [address] [facility] Comment on above: NORMAL FEMALE Luteal 1.8-5.1 mIU/mL Follicular 3.8-8.8 mIU/mL Mid Cycle 4.5-22.5 mIU/mL [facility] 16.7-113.6 mIU/mL Follitropin Qnon 07-09-[address] [facility] [address] [facility] FOLLICLE STIM HORMONE 6.9 mIU/mL Normal [facility] Comment on above: Result Comment: NORMAL FEMALE Luteal 1.8-5.1 mIU/mL Follicular 3.8-8.8 mIU/mL Mid Cycle 4.5-22.5 mIU/mL [facility] 16.7-113.6 mIU/mL Performed By: #### Gino HARRIS, [facility], [address]6818-0, THYR #### [facility] ([id number]) [address] [place] [address] Free T4 [Mass/Vol]on [address] [facility] [address] [facility] HCG.beta subunit IA 3rd IS Q non 07-09-2024 HCG.beta subunit Qn mIU/mL [facility] [address] [facility] Comment on above: NEW REFERENCE RANGE WEEKS [...] necessarily diagnostic for trophoblastic or nontrophoblastic neoplasms. [facility] SERUM B HCG,3RD I.S. <5 Normal [facility] Comment on above: Result Comment: NEW REFERENCE [...] nontrophoblastic neoplasms. Performed By: #### C , [facility], 63908-1, THYR #### [facility] ([id number]) [address] [place] [address] Luteinizing hormoneon 2023 Lutropin Qn 2.6 m[IU]/mL mIU/mL [facility] Comment on above: NORMAL FEMALE Follicular 2.1-10.9 mIU/mL Mid Cycle 19.2-103 mIU/mL Luteal 1.2-12.9 mIU/mL [facility] 10.9-58.6 mIU/mL Lutropin Qnon 07-09-2024 [facility] LUTEINIZING HORMONE 2.6 mIU/mL Normal [facility] Comment on above: Result Comment: NORMAL FEMALE Follicular 2.1-10.9 mIU/mL Mid Cycle 19.2-103 mIU/mL Luteal 1.2-12.9 mIU/mL [facility] 10.9-58.6 mIU/mL Performed By: #### Gino HARRIS [facility], 58742-0, THYR #### [facility] ([id number]) [address] [place] [address], [facility] [address] [place] [address] Prolactinon 07-09-2024 Prolactin [Mass/Vol] 25.4 ng/mL 3.3 - 2 6.7 ng/mL [facility] Prolactin [Mass/Vol]on 07-09 [facility] PROLACTIN 25.4 ng/mL Normal 3.3-26.7 [facility] Comment on above: Performed By: #### Gino HARRIS [facility], [address]1887-1, THYR #### [facility] ([id number]) [address] [place] [address], [facility] [address] [place] [address] T4, freeon 07-09-2024 Free T4 [Mass/Vol] 0.88 ng/dL 0.61 - 1. 60 ng/dL [facility] Comment on above: NEW REFERENCE RANGE FOR PEDIATRIC PATIENTS TSHon 07-09-2024 TSH Qn 3.82 m[IU]/L [facility] Comment on above: NEW REFERENCE RANGE FOR PEDIATRIC PATIENTS TSH Qnon 07-09-2024 [facility] TSH 3.82 uIU/mL Normal 0.49-4.67 [facility] Comment on above: Result Comment: NEW REFERENCE RANGE FOR PEDIATRIC PATIENTS Performed By: #### C LELIA HARRIS, 83252-2, THYR #### [facility] ([id number]) [address] [place] [address] US PELVIC WITH TRANSVAGINALo n 06-24-2024 US [...] Valero MD on 06/24/2024 7:12 PM Normal [facility] CBC AND AUTO DIFFon 06-21-20 24 ABSOLUTE BASOPHIL 0.1 X10E9/L Normal 0.0-0.2 [facility] Comment on above: Performed By: #### C LELIA HARRIS, 82308-5, THYR #### [facility] ([id number]) [address] [place] [address] ABSOLUTE NEUTROPHIL 3.7 X10E9/L Normal 1.5-6.6 [facility] Comment on above: Performed By: #### C STEVEN, CMP, 28892-8, THYR #### [facility] ([id number]) [address], [address] [place] [address] Basophils/100 WBC (Bld) 0.9 % Normal [facility] Comment on above: Performed By: #### C BC, CMP, 10310-7, THYR #### [facility] ([id number]) [address] [place] [address] Eosinophils (Bld) [#/Vol] 0.3 10*3/uL Normal 0.0-0.4 [facility] Comment on above: Performed By: #### Gino BC, CMP, 73840-6, THYR #### [facility] ([id number]) [address] [place] [address] Eosinophils/100 WBC (Bld) 4.2 % Normal [facility] Comment on above: Performed By: #### Gino HARRIS, CMP, 29155-0, THYR #### [facility] ([id number]) [address] [place] [address] Erythrocyte distribution width (RBC) [Ratio] 16.0 % High 11.5-15.0 [facility] Comment on above: Performed By: #### Gino BC CMP, 11502-8, THYR #### [facility] ([id number]) [address] [place] [address] Hematocrit (Bld) [Volume fraction] 37.6 % Normal 35-47 [facility] Comment on above: Performed By: #### C BC, CMP, 82029-6, THYR #### [facility] ([id number]) [address] [place] [address] Hemoglobin (Bld) [Mass/Vol] 12.0 g/dL Normal 11.7-15.5 [facility] Comment on above: Performed By: #### C STEVEN [facility], 56534-2, THYR #### [facility] ([id number]) [address] [place] [address] Lymphocytes (Bld) [#/Vol] 1.9 10*3/uL Normal 1.0-3.5 [facility] Comment on above: Performed By: #### Gino HARRIS [facility], 55392-2, THYR #### [facility] ([id number]) [address] [place] [address] Lymphocytes/100 WBC (Bld) 29.8 % Normal [facility] Comment on above: Performed By: #### Gino HARRIS [facility], 23130-2, THYR #### [facility] ([id number]) [address] [place] [address] MCH (RBC) [Entitic mass] 24.2 pg Low 27-34 [facility] Comment on above: Performed By: #### Gino HARRIS [facility], 37873-3, THYR #### [facility] ([id number]) [address] [place] [address] MCHC (RBC) [Mass/Vol] 31.8 g/dL Low 32-36 [facility] Comment on above: Performed By: #### Gino HARRIS [facility], 93978-4, THYR #### [facility] ([id number]) [address] [place] [address] MCV (RBC) [Entitic vol] 76 fL Low 80-100 [facility] Comment on above: Performed By: #### Gino HARRIS CMP, 65065-6, THYR #### [facility] ([id number]) [address], [address] [place] [address] Monocytes (Bld) [#/Vol] 0.5 10*3/uL Normal 0-0.9 [facility] Comment on above: Performed By: #### C STEVEN, CMP, 15735-7, THYR #### [facility] ([id number]) [address] [place] [address] Monocytes/100 WBC (Bld) 7.9 % Normal [facility] Comment on above: Performed By: #### Gino HARRIS, CMP, 90070-5, THYR #### [facility] ([id number]) [address] [place] [address] Neutrophils/100 WBC (Bld) 57.2 % Normal [facility] Comment on above: Performed By: #### Gino HARRIS, CMP, 86901-7, THYR #### [facility] ([id number]) [address] [place] [address] Platelet mean volume (Bld) [Entitic vol] 7.6 fL Normal 7-12 [facility] Comment on above: Performed By: #### Gino HARRIS, CMP, 48718-8, THYR #### [facility] ([id number]) [address] [place] [address] Platelets (Bld) [#/Vol] 408 10*3/uL Normal 150-450 [facility] Comment on above: Performed By: #### Gino HARRIS, CMP, 46231-1, THYR #### [facility] ([id number]) [address] [place] [address] RBC COUNT 4.95 X10E12/L Normal 3.80-5.20 [facility] Comment on above: Performed By: #### Gino BC, CMP, 36074-6, THYR #### [facility] ([id number]) [address] [place] [address] WBC (Bld) [#/Vol] 6.4 10*3/uL Normal 4.0-11.0 [facility] Comment on above: Performed By: #### C BC, CMP, 31478-4, THYR #### [facility] ([id number]) [address] [place] [address] COMPREHENSIVE METABOLIC PANE Toribio 06-21-2024 Albumin [Mass/Vol] 4.1 g/dL Normal 3.2-5.3 [facility] Comment on above: Performed By: #### Gino HARRIS CMP, 74453-8, THYR #### [facility] ([id number]) [address] [place] [address] ALP [Catalytic activity/Vol] 71 U/L Normal 39-130 [facility] Comment on above: Performed By: #### Gino HARRIS CMP, 89724-0, THYR #### [facility] ([id number]) [address] [place] [address] ALT [Catalytic activity/Vol] 44 U/L High 0-31 [facility] Comment on above: Performed By: #### Gino HARRIS CMP, 22911-7, THYR #### [facility] ([id number]) [address] [place] [address] Anion gap [Moles/Vol] 9 mmol/L Normal 5-15 [facility] Comment on above: Performed By: #### Gino HARRIS CMP, 84307-4, THYR #### [facility] ([id number]) [address] [place] [address] AST [Catalytic activity/Vol] 34 U/L Normal 0-41 [facility] Comment on above: Performed By: #### Gino HARRIS CMP, 74574-4, THYR #### [facility] ([id number]) [address] [place] [address] Bilirubin [Mass/Vol] 0.5 mg/dL Normal 0.3-1.2 [facility] Comment on above: Performed By: #### Gino HARRIS CMP, 95071-7, THYR #### [facility] ([id number]) [address] [place] [address] Calcium [Mass/Vol] 9.1 mg/dL Normal 8.5-10.5 [facility] Comment on above: Performed By: #### Gino HARRIS [facility], 08185-8, THYR #### [facility] ([id number]) [address] [place] [address] Chloride [Moles/Vol] 103 mmol/L Normal 98-109 [facility] Comment on above: Performed By: #### Gino HARRIS [facility], 26837-2, THYR #### [facility] ([id number]) [address] [place] [address] CO2 [Moles/Vol] 24 mmol/L Normal 22-32 [facility] Comment on above: Performed By: #### Gino HARRIS [facility], 28942-9, THYR #### [facility] ([id number]) [address] [place] [address] Creatinine [Mass/Vol] 0.68 mg/dL Normal 0.40-1.00 [facility] Comment on above: Result Comment: METH OD TRACEABLE TO IDMS STANDARD Performed By: #### Gino HARRIS CMP, 70694-4, THYR #### [facility] ([id number]) [address] [place] [address] eGFR (CKD-EPI) NON-RACE DEPENDENT >90 Normal >59 [facility] Comment on above: Result Comment: Reported eGFR is based on the CKD-EPI 2020 equation that does not use a race coefficient. Performed By: #### Gino HARRIS CMP, 36303-9, THYR #### [facility] ([id number]) [address] [place] [address] Glucose [Mass/Vol] 108 mg/dL High 65-99 [facility] Comment on above: Performed By: #### Gino HARRIS [facility], 36263-3, THYR #### [facility] ([id number]) [address] [place] [address] Potassium [Moles/Vol] 3.8 mmol/L Normal 3.5-5.0 [facility] Comment on above: Performed By: #### Gino HARRIS [facility], 49078-9, THYR #### [facility] ([id number]) [address] [place] [address] Protein [Mass/Vol] 7.5 g/dL Normal 6.0-8.0 [facility] Comment on above: Performed By: #### Gino HARRIS [facility], 32596-6, THYR #### [facility] ([id number]) [address] [place] [address] Sodium [Moles/Vol] 136 mmol/L Normal 134-146 [facility] Comment on above: Performed By: #### Gino HARRIS [facility], 95697-7, THYR #### [facility] ([id number]) [address] [place] [address] Urea nitrogen [Mass/Vol] 10 mg/dL Normal 5-23 [facility] Comment on above: Performed By: #### Gino HARRIS [facility], 94092-8, THYR #### [facility] ([id number]) [address] [place] [address] CT ABDOMEN AND PELVIS W CONT on [...] Bradley MD on 06/21/2024 3:20 PM Normal [facility] LIPASEon 06-21-2024 Lipase [Catalytic activity/Vol] 41 U/L High 17-40 [facility] Comment on above: Performed By: #### Gino HARRIS CMP, 28358-9, THYR #### [facility] ([id number]) [address] [place] [address] PROTIME AND INRon 06-21-2024 INR Coag (PPP) [Relative time] 1.0 {INR} Normal 0.8-1.1 [facility] Comment on above: Performed By: #### Gino HARRIS CMP, 55722-0, THYR #### [facility] ([id number]) [address] [place] [address] PT Coag (PPP) [Time] 11.6 s Normal 9.8-13.2 [facility] Comment on above: Result Comment: NEW REFERENCE RANGE Performed By: #### Gino HARRIS CMP, 60003-6, THYR #### [facility] ([id number]) [address] [place] [address] URN MACROSCOPIC NURon 2023 BILIRUBIN JOURDAN Negative Normal NEG [facility] Comment on above: Performed By: #### Gino HARRIS CMP, 26519-7, THYR #### [facility] ([id number]) [address] [place] [address] BLOOD/HGB JOURDAN Negative Normal NEG [facility] Comment on above: Performed By: #### Gino HARRIS [facility], 14513-6, THYR #### [facility] ([id number]) [address] [place] [address] GLUCOSE JOURDAN Negative Normal NEG [facility] Comment on above: Performed By: #### Gino HARRIS [facility], 63203-0, THYR #### [facility] ([id number]) [address] [place] [address] KETONES JOURDAN Negative Normal NEG [facility] Comment on above: Performed By: #### Gino HARRIS [facility], 99614-8, THYR #### [facility] ([id number]) [address] [place] [address] LEUKOCYTE ESTERASE JOURDAN Negative Normal NEG [facility] Comment on above: Performed By: #### Gino HARRIS [facility], 10214-4, THYR #### [facility] ([id number]) [address] [place] [address] NITRITE JOURDAN Negative Normal NEG [facility] Comment on above: Performed By: #### Gino HARRIS [facility], [address]-9, THYR #### [facility] ([id number]) [address], [address] [place] [address] PH JOURDAN 6.0 Normal 5.0-8.5 [facility] Comment on above: Performed By: #### Gino HARRIS [facility], [address]-9, THYR #### [facility] ([id number]) [address], [address] [place] [address] PROTEIN JOURDAN Negative Normal NEG [facility] Comment on above: Performed By: #### Gino HARRIS CMP, 72835-7, THYR #### [facility] ([id number]) [address], [address] [place] [address] SPECIFIC GRAVITY JOURDAN 1.010 Normal 1.003-1.035 [facility] Comment on above: Performed By: #### C STEVEN, [facility], [address]-3, THYR #### [facility] ([id number]) [address] [place] [address] [address] [place] [address] UROBILINOGEN JOURDAN 0.2 eu/dL Normal <1.1 [facility] Comment on above: Performed By: #### C STEVEN, [facility] [facility], [address]-5, THYR #### [facility] ([id number]) [address] [place] [address] [address] [place] [address] aPTT Coag (PPP) [Time]on aPTT Coag (Bld) [Time] 34 s Normal 26-37 [facility] Comment on above: Result Comment: NEW REFERENCE RANGE Performed By: #### C STEVEN [facility], [address]-5, THYR #### [facility] ([id number]) [address] [place] [address] [address] [place] [address] Cytologyon 06-19-2024 Cytology Normal [facility] Comment on above: Result Comment: [facility] [address] [place] [address] Gynecologic Cytology Consultation Patient Name:RAYA GONZALES:1980 (Age: 44)Gender:FTaken:4Reported:4Physician(s):Gisela Cordova, [facility] ([phone])Copy To: Rec. #:[id number]: #[id number] Final Cytologic Interpretation ThinPrep Pap Test (Cervical): Satisfactory for evaluation. A transformation zone component is not identified via imaging-assisted review, using DirectLaw Thin Prep Imaging System, within 22 microscopic castillo of view. NEGATIVE FOR INTRAEPITHELIAL LESION OR MALIGNANCY. [facility] [place]/07/05/2024 [facility] [address], License number: [id number]. Electronically Signed Out By MARIAH Loving(ASCP) Date of Last Menstrual Period: 05/14/24 Other Clinical Conditions: Abnormal Bleeding Z01.419 Special Education Professor exam wo/abn findings Source of Specimen ThinPrep Pap Test (Cervical) Thin Prep Pap (ADMINISTRATIVE SUPPORT SPECIALIST) Fee Code(s): G0145 The Pap test is a screening test with an inherent, but low, probability of error. The Pap test is primarily effective for the diagnosis and prevention of squamous cell carcinoma. Regular screening is critical for prevention. ThinPrep liquid-based slides, which meet the Manager Net criteria for automated screening, have been screened by the ThinPrep Imaging System (as of 04/16/07) along with an additional manual rescreening by a press catcher and, if indicated, by a pathologist. HIGH RISK HPV W/GENOon 06-19 HPV 31+33+35+39+45+51+52+ 56+58+59+66+68 DNA JOSELUIS+probe Ql (Cvx) HPV SPECIMEN TYPE ThinPrep HPV 16 Negative (qualifier value) HPV 18 Negative (qualifier value) OTHER HIGH RISK HPV Negative (qualifier value) HPV types 31,33,35,39,45,52,56,5 8,59,66 and 68 DNA were undetectable. Normal [facility] Comment on above: Performed By: #### 7 1431-1 ####[facility] ([id number])[address] [place] [address] [place] [address] LAB ([id number])[facility], [address] [place] [address] Alpha 1 antitrypsin Nephelom etry [Mass/Vol]on 06-17-2024 ALPHA 1 ANTITRYPSIN 193 mg/dL Normal 83-199 [facility] Comment on above: Performed By: #### C BC, 66243-1, HA1C, 6771-0, IMGB, THYR, 2132-9, 37259-7, 95100-1 ####[facility] ([id number])[address] [place] [address], [address] [address]#### 36443-4 ####[facility] ([id number])[address] [place] [address] Alpha 1 antitrypsin phenotyp ing [Interp]on 06-17-2024 Alrwo-1-Rjgtokabtvx Phenotype MM Normal [facility] Comment on above: Result Comment: NOTE A single M isoform is detected. In the context of a normal guscv-0-kfbirixywzo concentration, this is consistent with an MM phenotype. ADDITIONAL INFORMATION Method: Isoelectric Focusing, This assay identifies the phenotype of the circulating bqxdt-0-tbyfbvrcugg (A1A) protein. If the patient is on replacement therapy or has been recently transfused, the phenotype will detect patient and replacement or transfused plasma A1A protein. This test also cannot detect a null allele which could be responsible for an A1A deficiency. Performed By: #### C STEVEN, 47242-6, HA1C, 6771-0, IMGB, THYR, 213-9, 80936-7, 77817-8 ####[facility] ([id number])[address] [place] [address], [address] [address]#### 13777-8 ####[facility] ([id number])[address] [place] [address] Eihvf-0-Vyzjzquncau, S 180 mg/dL Normal 100 - 190 [facility] Comment on above: Result Comment: NOTE ADDITIONAL INFORMATION Method: Nephelometry Test Performed by: [facility] [address] [place] [address] Router Operator: Arabella Trejo Ph.D.; CLIA# [id number] Performed By: #### [place], [address]-3, HA1C, 6771-0, IMGB, THYR, 2132-03, 52719-5, 76583-5 ####[facility] ([id number])[address] [place] [address]#### 47676-9 ####[facility] ([id number])[address] [place] [address] B. burgdorferi IgG+IgM Qn (S )on 06-17-2024 LYME TOTAL <0.2 Normal <0.9 [facility] Comment on above: Result Comment: Interpretation-------- <0.9 Negative 0.9 - 1.0 Equivocal >1.0 Positive No serological evidence of Borrelia infection.A non-reactive result does not exclude the possibility of Borrelia infection and cannot exclude early infection with B.burgdorferi. If Lyme borreliosis is suspected, a second sample should be collected and tested 2-4 weeks later. Performed By: #### C STEVEN, 48969-9, HA1C, 71-0, IMGB, THYR, 2132-03, 80209-7, 37746-4 ####[facility] ([id number])[address] [place] [address]#### 92223-8 ####[facility] ([id number])[address] [place] [address] COMPLETE BLOOD COUNTon 06-17 Erythrocyte distribution width (RBC) [Ratio] 16.2 % High 11.5-15.0 [facility] Comment on above: Performed By: #### C STEVEN, 45836-5, HA1C, 71-0, IMGB, THYR, 2132-03, 30743-6, 44513-2 ####[facility] ([id number])[address] [place] [address]#### 87466-1 ####[facility] ([id number])[address] [place] [address] Hematocrit (Bld) [Volume fraction] 41.8 % Normal 35-47 [facility] Comment on above: Performed By: #### C BC, 19403-9, HA1C, 6771-0, IMGB, THYR, 2132-9, 26809-7, 71912-2 ####[facility] ([id number])[address], [address] [place] [address]#### 57189-9 ####[facility] ([id number])[address] [place] [address] Hemoglobin (Bld) [Mass/Vol] 13.2 g/dL Normal 11.7-15.5 [facility] Comment on above: Performed By: #### C BC, 34535-7, HA1C, 6771-0, IMGB, THYR, 213-9, 90284-0, 97091-9 ####[facility] ([id number])[address], [address] [place] [address]#### 39984-6 ####[facility] ([id number])[address] [place] [address] MCH (RBC) [Entitic mass] 24.2 pg Low 27-34 [facility] Comment on above: Performed By: #### C BC, 77005-6, HA1C, 6771-0, IMGB, THYR, 2132-9, 53946-9, 04277-3 ####[facility] ([id number])[address], [address] [place] [address]#### 81124-2 ####[facility] ([id number])[address] [place] [address] MCHC (RBC) [Mass/Vol] 31.6 g/dL Low 32-36 [facility] Comment on above: Performed By: #### C BC, 78868-0, HA1C, 6771-0, IMGB, THYR, 213-9, 11633-3, 24661-6 ####[facility] ([id number])[address], [address] [address]#### 68037-9 ####[facility] ([id number])[address] [place] [address] MCV (RBC) [Entitic vol] 77 fL Low 80-100 [facility] Comment on above: Performed By: #### C STEVEN, 59115-2, HA1C, 6771-0, IMGB, THYR, 2131-, 20448-9, 36924-9 ####[facility] ([id number])[address] [facility], [address] [address]#### 00300-3 ####[facility] ([id number])[address] [place] [address]72 Platelet mean volume (Bld) [Entitic vol] 8.4 fL Normal 7-12 [facility] Comment on above: Performed By: #### Gino HARRIS, 83137-0, HA1C, 6771-0, IMGB, THYR, 2131-, 32032-5, 00269-4 ####[facility] ([id number])[address] [address]#### 75813-2 ####[facility] ([id number])[address] [place] [address] Platelets (Bld) [#/Vol] 460 10*3/uL High 150-450 [facility] Comment on above: Performed By: #### Gino HARRIS, 97853-0, HA1C, 6771-0, IMGB, THYR, 2131-9, 93194-9, 98421-6 ####[facility] ([id number])[address], [address] [place] [address]#### 95760-7 ####[facility] ([id number])[address] [place] [address]11 RBC COUNT 5.45 X10E12/L High 3.80-5.20 [facility] Comment on above: Performed By: #### C BC, 32691-9, HA1C, 6771-0, IMGB, THYR, 2131-9, 83940-5, 79932-2 ####[facility] ([id number])[address], [address] [place] [address]#### 87088-7 ####[facility] ([id number])[address] [place] [address]87 WBC (Bld) [#/Vol] 12.1 10*3/uL High 4.0-11.0 [facility] Comment on above: Performed By: #### C BC, 80548-6, HA1C, 6771-0, IMGB, THYR, 2131-, 38378-0, 15491-1 ####[facility] ([id number])[address] [address]#### 39624-4 ####[facility] ([id number])[address] [place] [address] EOSINOPHIL, TOTALon 11-18-20 24 Eosinophils (Bld) [#/Vol] 0.2 10*3/uL Normal 0.0-0.4 [facility] Comment on above: Performed By: #### C BC, 22234-9, HA1C, 6771-0, IMGB, THYR, 2131-9, 26158-9, 53350-9 ####[facility] ([id number])[address], [address] [place] [address]#### 21811-3 ####[facility] ([id number])[address] [place] [address]79 HGB A1C (GLYCO-HGB)on 2023 Glucose [Mass/Vol] 169 mg/dL Normal [facility] Comment on above: Performed By: #### C BC, 13349-4, HA1C, 6771-0, IMGB, THYR, 9, 78223-0, 49728-4 ####[facility] ([id number])[address] [place] [address], [address] [address]#### 89752-0 ####[facility] ([id number])[address] [place] [address] HbA1c (Bld) [Mass fraction] 7.5 % High 4.4-5.6 [facility] Comment on above: Result Comment: NOTE ADA Guidelines Result HgbA1c Normal : less than 5.7 % Prediabetes : 5.7 % to 6.4 % Diabetes : > 6.4 % Use with caution in patients with abnormal hemoglobin variants as the half-life of red blood cells and in vivo glycation rates are affected. Performed By: #### C BC, 78762-3, HA1C, 6771-0, IMGB, THYR, 2132-03, 41854-7, 40077-4 ####[facility] ([id number])[address] [place] [address], [address] [place] [address]#### 57321-8 ####[facility] ([id number])[address] [place] [address] IMMUNOGLOBULINSon 06-17-2024 IgA [Mass/Vol] 181 mg/dL Normal 68-378 [facility] Comment on above: Performed By: #### C BC, 26508-0, HA1C, 6771-0, IMGB, THYR, 2131-9, 89384-0, 10623-0 ####[facility] ([id number])[address] [address]#### 04357-5 ####[facility] ([id number])[address] [place] [address] 21774 IgG [Mass/Vol] 672 mg/dL Normal 635-1741 [facility] Comment on above: Performed By: #### C BC, 98796-0, HA1C, 6771-0, IMGB, THYR, 2131-9, 03338-9, 02431-4 ####[facility] ([id number])[address] [address]#### 15555-7 ####[facility] ([id number])[address] [place] [address] 79357 IgM [Mass/Vol] 165 mg/dL Normal 45-281 [facility] Comment on above: Performed By: #### C BC, 89851-6, HA1C, 6771-0, IMGB, THYR, 2132-03, 58569-4, 26015-4 ####[facility] ([id number])[address] [address]#### 37433-7 ####[facility] ([id number])[address] [place] [address] 73738 Nuclear Ab IA Ql (S)on 06-17 RODRIGO Screen w/reflex Negative Normal NEG [facility] Comment on above: Result Comment: Testing performed using multiplex flow immunoassay. Eleven different antigens associated with systemic autoimmune diseases (dsDNA,Sm,Sm/TENTERER,TENTERER,Chromatin, SSA,SSB,Maria Guadalupe-1,Scl70,Ribo P,Centromere B) are included in this screening test. Performed By: #### C BC, 89290-1, HA1C, 6771-0, IMGB, THYR, 2132-03, 56948-1, 37374-6 ####[facility] ([id number])[address], [address] [address]#### 06215-9 ####[facility] ([id number])[address] [place] [address] RESPIRATORY PANELon 06-17-20 ALTERNARIA ALTERNATA <0.10 Normal <0.10 [facility] Comment on above: Result Comment: Clas s 0: Normal Performed By: #### R AP ####[facility] ([id number])[address], [address] [place] [address] ASPERGILLUS FUMIGATUS <0.10 Normal <0.10 [facility] Comment on above: Result Comment: Clas s 0: Normal Performed By: #### R AP ####[facility] ([id number])[address], [address], [place] [address] BERMUDA GRASS <0.10 Normal <0.10 [facility] Comment on above: Result Comment: Clas s 0: Normal Performed By: #### R AP ####[facility] ([id number])[address], [address], [place] [address] BOX ELDER <0.10 Normal <0.10 [facility] Comment on above: Result Comment: Clas s 0: Normal Performed By: #### R AP ####[facility] ([id number])[address], [address], [place] [address] CAT DANDER <0.10 Normal <0.10 [facility] Comment on above: Result Comment: Clas s 0: Normal Performed By: #### R AP ####[facility] ([id number])[address], [address] [address] CLADOSPORIUM HERB <0.10 Normal <0.10 [facility] Comment on above: Result Comment: Clas s 0: Normal Performed By: #### R AP ####[facility] ([id number])[address], [address], [place] [address] COCKLEBUR <0.10 Normal <0.10 [facility] Comment on above: Result Comment: Clas s 0: Normal Performed By: #### R AP ####[facility] ([id number])[address], [address], [place] [address] COCKROACH 0.14 kU/L High <0.10 [facility] Comment on above: Result Comment: Clas s 0/1: Low level of Allergy, ongoing sensitization Performed By: #### R AP ####[facility] ([id number])[address] [place] [address] COMMON PIGWEED <0.10 Normal <0.10 [facility] Comment on above: Result Comment: Clas s 0: Normal Performed By: #### R AP ####[facility] ([id number])[address], [address], [place] [address] COMMON RAGWEED <0.10 Normal <0.10 [facility] Comment on above: Result Comment: Clas s 0: Normal Performed By: #### R AP ####[facility] ([id number])[address], [address], [place] [address] COMMON SILVER BIRCH <0.10 Normal <0.10 [facility] Comment on above: Result Comment: Clas s 0: Normal Performed By: #### R AP ####[facility] ([id number])[address], [address], [place] [address] COTTONWOOD <0.10 Normal <0.10 [facility] Comment on above: Result Comment: Clas s 0: Normal Performed By: #### R AP ####[facility] ([id number])[address] [place] [address] DERMATOPH FARINAE <0.10 Normal <0.10 [facility] Comment on above: Result Comment: Clas s 0: Normal Performed By: #### R AP ####[facility] ([id number])[address] [address] DERMATOPH PTERONYSS <0.10 Normal <0.10 [facility] Comment on above: Result Comment: Clas s 0: Normal Performed By: #### R AP ####[facility] ([id number])[address], [place] [address] DOG DANDER <0.10 Normal <0.10 [facility] Comment on above: Result Comment: Clas s 0: Normal Performed By: #### R AP ####[facility] ([id number])[address] [address] [address] ELM <0.10 Normal <0.10 [facility] Comment on above: Result Comment: Clas s 0: Normal Performed By: #### R AP ####[facility] ([id number])[address], [place] [address] GOOSEFOOT LITTLE QTR <0.10 Normal <0.10 [facility] Comment on above: Result Comment: Clas s 0: Normal Performed By: #### R AP ####[facility] ([id number])[address] [address] IGE 31 IU/mL Normal 0-165 [facility] Comment on above: Performed By: #### R AP ####[facility] ([id number])[address] [address] RUSS GRASS <0.10 Normal <0.10 [facility] Comment on above: Result Comment: Clas s 0: Normal Performed By: #### R AP ####[facility] ([id number])[address], [place] [address] MAPLE LEAF SYCAMORE <0.10 Normal <0.10 [facility] Comment on above: Result Comment: Clas s 0: Normal Performed By: #### R AP ####[facility] ([id number])[address], [place] [address] [place] GURPREET <0.10 Normal <0.10 [facility] Comment on above: Result Comment: Clas s 0: Normal Performed By: #### R AP ####[facility] ([id number])[address] [address] MOUNTAIN JUNIPER <0.10 Normal <0.10 [facility] Comment on above: Result Comment: Clas s 0: Normal Performed By: #### R AP ####[facility] ([id number])[address], [address], [place] [address] MOUSE URINE PROTEINS <0.10 Normal <0.10 [facility] Comment on above: Result Comment: Clas s 0: Normal Performed By: #### R AP ####[facility] ([id number])[address] [address] MUGWORT <0.10 Normal <0.10 [facility] Comment on above: Result Comment: Clas s 0: Normal Performed By: #### R AP ####[facility] ([id number])[address] [address] MULBERRY TREE <0.10 Normal <0.10 [facility] Comment on above: Result Comment: Clas s 0: Normal Performed By: #### R AP ####[facility] ([id number])[address], [place] [address] NETTLE <0.10 Normal <0.10 [facility] Comment on above: Result Comment: Clas s 0: Normal Performed By: #### R AP ####[facility] ([id number])[address] [address] OAK <0.10 Normal <0.10 [facility] Comment on above: Result Comment: Clas s 0: Normal Performed By: #### R AP ####[facility] ([id number])[address] [address] PECAN HICKORY TREE <0.10 Normal <0.10 [facility] Comment on above: Result Comment: Clas s 0: Normal Performed By: #### R AP ####[facility] ([id number])[address], [place] [address] PENICILLIUM CHRYSOGENUM <0.10 Normal <0.10 [facility] Comment on above: Result Comment: Clas s 0: Normal Performed By: #### R AP ####[facility] ([id number])[address], [place] [address] ROUGH MARSHELDER <0.10 Normal <0.10 [facility] Comment on above: Result Comment: Clas s 0: Normal Performed By: #### R AP ####[facility] ([id number])[address], [place] [address] SALTWORT RICK THISTLE <0.10 Normal <0.10 [facility] Comment on above: Result Comment: Clas s 0: Normal Performed By: #### R AP ####[facility] ([id number])[address], [place] [address] SHEEP SORREL <0.10 Normal <0.10 [facility] Comment on above: Result Comment: Clas s 0: Normal Performed By: #### R AP ####[facility] ([id number])[address], [place] [address] ANAI <0.10 Normal <0.10 [facility] Comment on above: Result Comment: Clas s 0: Normal Performed By: #### R AP ####[facility] ([id number])[address] [address], [place] [address] WALNUT TREE POLLEN <0.10 Normal <0.10 [facility] Comment on above: Result Comment: Clas s 0: Normal Performed By: #### R AP ####[facility] ([id number])[address] [address] [place] [address] WHITE LAZARO <0.10 Normal <0.10 [facility] Comment on above: Result Comment: Clas s 0: Normal Performed By: #### R AP ####[facility] ([id number])[address] [address] [place] [address] THYROID PROFILEon 06-17-2024 Free T4 [Mass/Vol] 1.06 ng/dL Normal 0.61-1.60 [facility] Comment on above: Performed By: #### C STEVEN, 45788-9, HA1C, 6771-0, IMGB, THYR, 2132-03, 36235-1, 95704-9 ####[facility] ([id number])[address] [address] [place] [address]#### [id number] ####[facility] ([id number])[address] [place] [address]120 TSH 4.33 uIU/mL Normal 0.49-4.67 [facility] Comment on above: Performed By: #### C STEVEN, 37128-5, HA1C, 6771-0, IMGB, THYR, 2132-03, 33684-0, 56868-0 ####[facility] ([id number])[address] [address] [place] [address]#### [id number] ####[facility] ([id number])[address] [place] [address] VITAMIN B12on 06-17-2024 Cobalamin (Vitamin B12) [Mass/Vol] 460 pg/mL Normal 180-914 [facility] Comment on above: Performed By: #### C BC, 54892-8, HA1C, 6771-0, IMGB, THYR, 2132-9, 29871-6, 70819-3 ####[facility] ([id number])[address] [facility], [address] [place] [address]#### [id number] ####[facility] ([id number])[address] [place] [address] HERPES SIMPLEX VIRAL PCRon 08-12-2023 HERPES SIMPLEX VIRAL PCR SPECIMEN SOURCE VAGINAL LESION HERPES SIMPLEX 1 PCR Negative (qualifier value) HSV 1 DNA Not Detected HERPES SIMPLEX 2 PCR Negative (qualifier value) HSV 2 DNA Not Detected Normal [facility] Comment on above: Performed By: #### H SV12 #### [facility] ([id number]) [address], [address] [place] [address] MAMM DIAGNOSTIC BILATERAL W CADon 03-05-2024 MAMM [...] PM 1 b MAMM 1 YR Normal [facility] US BREAST LT LIMITEDon 03-05 US [...] 2:12 PM 1 MAMM 1 YR Normal [facility] MR BRAIN W WO CONTon 02-27-2 [...] clear. Temporal bones are clear. IMPRESSION: * [id number] burden of deep white matter signal changes, [...] Aneesh Mendez on 02/28/2024 11:47 AM Normal [facility] MR ORBIT W WO CONTon 024 [...] Aneesh Mendez on 02/28/2024 1:46 PM Normal [facility] MR CERVICAL SPINE W WO CONTo [...] Early MD on 02/27/2024 3:15 PM Normal [facility] CT BRAIN WO CONTon CT BRAIN [...] Valero MD on 01/30/2024 4:36 PM Normal [facility] Fecal Panc Elastaseon 2023 Pancreatic Elastase >800 Normal >=100 [facility] Comment on above: Result Comment: (NOT E) REFERENCE INTERVAL: Pancreatic Elastase Fecal by Immunoassay Less than 100 ug/g............Severe insufficiency 100 - 199 ug/g................Moderate insufficiency 200 ug/g or greater...........Normal INTERPRETIVE INFORMATION: Pancreatic Elastase Fecal by Immunoassay Reference intervals do not apply for infants less than one month old. Performed By: [facility] [address] [place] [address] Finishing Technician: Landon Winters MD, PhD CLIA Number: [id number] Performed By: #### A PEF #### [facility] [address] [place] [address] Router Operator: Casey Howard MD CBC AND AUTO DIFFon 01-03-20 24 ABSOLUTE BASOPHIL 0.1 X10E9/L Normal 0.0-0.2 [facility] Comment on above: Performed By: #### C MP, CBCA ####[facility] ([id number])[address] [place] [address] 76738 ABSOLUTE NEUTROPHIL 5.8 X10E9/L Normal 1.5-6.6 [facility] Comment on above: Performed By: #### C MP, CBCA ####[facility] ([id number])[address] [place] [address] 62236 Basophils/100 WBC (Bld) 0.9 % Normal [facility] Comment on above: Performed By: #### C MP, CBCA ####[facility] ([id number])[address] [place] [address] 92827 Eosinophils (Bld) [#/Vol] 0.3 10*3/uL Normal 0.0-0.4 [facility] Comment on above: Performed By: #### C MP, CBCA ####[facility] ([id number])[address] [place] [address] 43547 Eosinophils/100 WBC (Bld) 3.5 % Normal [facility] Comment on above: Performed By: #### C MP, CBCA ####[facility] ([id number])[address] [place] [address] 29030 Erythrocyte distribution width (RBC) [Ratio] 17.0 % High 11.5-15.0 [facility] Comment on above: Performed By: #### C MP, CBCA ####[facility] ([id number])[address] [place] [address] 54142 Hematocrit (Bld) [Volume fraction] 40.0 % Normal 35-47 [facility] Comment on above: Performed By: #### C MP, CBCA ####[facility] ([id number])[address] [place] [address] 60126 Hemoglobin (Bld) [Mass/Vol] 13.1 g/dL Normal 11.7-15.5 [facility] Comment on above: Performed By: #### C MP, CBCA ####[facility] ([id number])[address] [place] [address] 14908 Lymphocytes (Bld) [#/Vol] 1.6 10*3/uL Normal 1.0-3.5 [facility] Comment on above: Performed By: #### C MP, CBCA ####[facility] ([id number])[address] [place] [address] 45419 Lymphocytes/100 WBC (Bld) 19.3 % Normal [facility] Comment on above: Performed By: #### C MP, CBCA ####[facility] ([id number])[address] [place] [address] 49423 MCH (RBC) [Entitic mass] 26.3 pg Low 27-34 [facility] Comment on above: Performed By: #### C MP, CBCA ####[facility] ([id number])[address] [place] [address] 64397 MCHC (RBC) [Mass/Vol] 32.8 g/dL Normal 32-36 [facility] Comment on above: Performed By: #### C MP, CBCA ####[facility] ([id number])[address] [place] [address] 92849 MCV (RBC) [Entitic vol] 80 fL Normal 80-100 [facility] Comment on above: Performed By: #### C KEILA, CBCA ####[facility] ([id number])[address] [place] [address] 50969 Monocytes (Bld) [#/Vol] 0.5 10*3/uL Normal 0-0.9 [facility] Comment on above: Performed By: #### C KEILA, CBCA ####[facility] ([id number])[address] [place] [address] 28874 Monocytes/100 WBC (Bld) 5.7 % Normal [facility] Comment on above: Performed By: #### C KEILA, CBCA ####[facility] ([id number])[address] [place] [address] 33204 Neutrophils/100 WBC (Bld) 70.6 % Normal [facility] Comment on above: Performed By: #### C MP, CBCA ####[facility] ([id number])[address] [place] [address] 52399 Platelet mean volume (Bld) [Entitic vol] 8.1 fL Normal 7-12 [facility] Comment on above: Performed By: #### C MP, CBCA ####[facility] ([id number])[address] [place] [address] 05386 Platelets (Bld) [#/Vol] 355 10*3/uL Normal 150-450 [facility] Comment on above: Performed By: #### C MP, CBCA ####[facility] ([id number])[address] [place] [address] 95126 RBC COUNT 5.00 X10E12/L Normal 3.80-5.20 [facility] Comment on above: Performed By: #### C MP, CBCA ####[facility] ([id number])[address] [place] [address] 27083 WBC (Bld) [#/Vol] 8.3 10*3/uL Normal 4.0-11.0 [facility] Comment on above: Performed By: #### C MP, CBCA ####[facility] ([id number])[address] [place] [address] 06850 COMPREHENSIVE METABOLIC PANE [facility] 01-03-2024 Albumin [Mass/Vol] 4.3 g/dL Normal 3.2-5.3 [facility] Comment on above: Performed By: #### C MP, CBCA #### [facility] ([id number]) [address] [place] [address] 70529 ALP [Catalytic activity/Vol] 77 U/L Normal 39-130 [facility] Comment on above: Performed By: #### C MP, CBCA #### [facility] ([id number]) [address] [place] [address] 09728 ALT [Catalytic activity/Vol] 33 U/L High 0-31 [facility] Comment on above: Performed By: #### C MP, CBCA #### [facility] ([id number]) [address] [place] [address] 48261 Anion gap [Moles/Vol] 12 mmol/L Normal 5-15 [facility] Comment on above: Performed By: #### C KEILA CBCA #### [facility] ([id number]) [address] [place] [address] 28721 AST [Catalytic activity/Vol] 24 U/L Normal 0-41 [facility] Comment on above: Performed By: #### C KEILA, CBCA #### [facility] ([id number]) [address] [place] [address] 53128 Bilirubin [Mass/Vol] 0.3 mg/dL Normal 0.3-1.2 [facility] Comment on above: Performed By: #### C KEILA CBCA #### [facility] ([id number]) [address] [place] [address] 05712 Calcium [Mass/Vol] 8.8 mg/dL Normal 8.5-10.5 [facility] Comment on above: Performed By: #### C KEILA CBCA #### [facility] ([id number]) [address] [place] [address] 37787 Chloride [Moles/Vol] 101 mmol/L Normal 98-109 [facility] Comment on above: Performed By: #### C KEILA, CBCA #### [facility] ([id number]) [address] [place] [address] 90819 CO2 [Moles/Vol] 22 mmol/L Normal 22-32 [facility] Comment on above: Performed By: #### C KEILA, CBCA #### [facility] ([id number]) [address] [place] [address] 60800 Creatinine [Mass/Vol] 0.67 mg/dL Normal 0.40-1.00 [facility] Comment on above: Result Comment: METH OD TRACEABLE TO IDMS STANDARD Performed By: #### C KEILA CBCA #### [facility] ([id number]) [address] [place] [address] 56666 eGFR (CKD-EPI) NON-RACE DEPENDENT >90 Normal >59 [facility] Comment on above: Result Comment: Reported eGFR is based on the CKD-EPI 2020 equation that does not use a race coefficient. Performed By: #### C KEILA, CBCA #### [facility] ([id number]) [address] [place] [address] 00831 Glucose [Mass/Vol] 165 mg/dL High 65-99 [facility] Comment on above: Performed By: #### C KEILA, CBCA #### [facility] ([id number]) [address] [place] [address] 94383 Potassium [Moles/Vol] 4.0 mmol/L Normal 3.5-5.0 [facility] Comment on above: Performed By: #### C KEILA, CBCA #### [facility] ([id number]) [address] [place] [address] 76953 Protein [Mass/Vol] 7.8 g/dL Normal 6.0-8.0 [facility] Comment on above: Performed By: #### C KEILA, CBCA #### [facility] ([id number]) [address] [place] [address] 06686 Sodium [Moles/Vol] 135 mmol/L Normal 134-146 [facility] Comment on above: Performed By: #### C KEILA, CBCA #### [facility] ([id number]) [address] [place] [address] 61833 Urea nitrogen [Mass/Vol] 14 mg/dL Normal 5-23 [facility] Comment on above: Performed By: #### C KEILA, CBCA #### [facility] ([id number]) [address] [place] [address] ABDOMEN AND PELVIS WO CON Ton [...] Lawson MD on 01/03/2024 10:20 PM Normal [facility] HCG ( test) Ql (U)o n 01-03-2024 Beta HCG ( test) Ql (U) Negative Normal NEG [facility] Comment on above: Performed By: #### 2 106-3 #### [facility] ([id number]) [address] [place] [address] 62838 URN MACROSCOPIC NURon 2023 BILIRUBIN JOURDAN Negative Normal NEG [facility] Comment on above: Performed By: #### N UM #### [facility] ([id number]) [address] [place] [address] 85455 BLOOD/HGB JOURDAN Trace Abnormal NEG [facility] Comment on above: Performed By: #### N UM #### [facility] ([id number]) [address] [place] [address] 89652 GLUCOSE JOURDAN Negative Normal NEG [facility] Comment on above: Performed By: #### N UM #### [facility] ([id number]) [address] [place] [address] 08745 KETONES JOURDAN Negative Normal NEG [facility] Comment on above: Performed By: #### N UM #### [facility] ([id number]) [address] [place] [address] 00495 LEUKOCYTE ESTERASE JOURDAN Negative Normal NEG [facility] Comment on above: Performed By: #### N UM #### [facility] ([id number]) [address] [place] [address] 05104 NITRITE JOURDAN Negative Normal NEG [facility] Comment on above: Performed By: #### N UM #### [facility] ([id number]) [address] [place] [address] 92042 PH JOURDAN 6.0 Normal 5.0-8.5 [facility] Comment on above: Performed By: #### N UM #### [facility] ([id number]) [address] [place] [address] 64711 PROTEIN JOURDAN Negative Normal NEG [facility] Comment on above: Performed By: #### N UM #### [facility] ([id number]) [address] [place] [address] 26685 SPECIFIC GRAVITY JOURDAN 1.025 Normal 1.003-1.035 [facility] Comment on above: Performed By: #### N UM #### [facility] ([id number]) [address] [place] [address] 73917 UROBILINOGEN JOURDAN 0.2 eu/dL Normal <1.1 [facility] Comment on above: Performed By: #### N UM #### [facility] ([id number]) [address] [place] [address] 84587 US ABDOMEN LIMITEDon 024 US ABDOMEN LIMITED EXAMINATION: RIGHT UPPER QUADRANT ULTRASOUND 01/02/2024 3:13 pm COMPARISON: None. HISTORY: ORDERING SYSTEM PROVIDED HISTORY: RUQ abdominal pain TECHNOLOGIST PROVIDED HISTORY: [facility] Specify organ?->LIVER Specify organ?->PANCREAS FINDINGS: LIVER: The [...] Alfonso Ramos DO 01/02/24 Final result Normal [facility] US Abdomen limitedon 024 1. Cholecystectomy. 2. Prominent common bile duct measuring 9.7 mm. This likely reflects post cholecystectomy benign biliary ductal ectasia. [facility] RIS CONSOLIDATED EXAMINATION: RIGHT UPPER QUADRANT ULTRASOUND 01/02/2024 3:13 pm COMPARISON: None. HISTORY: ORDERING SYSTEM PROVIDED HISTORY: [facility] abdominal pain TECHNOLOGIST PROVIDED HISTORY: [...] No evidence of right upper quadrant ascites. 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 [facility] Radiology Study observation (narrative) [facility] US Abdomen limitedOrdered By : Alfonso Ramos on 01-02-2024 [facility] Work Phone: Celiac Disease Panelon 12-27 Gliadin Deam Pep IgG <0.4 Normal <7.0 [facility] Comment on above: Result Comment: CELIAC INTERPRETATION <7.0 Negative 7.0-10.0 Equivocal >10.0 Positive units: U/mL Performed By: #### C PBILC, CDP, LIP #### [address] [place] [address] Router Operator: Remy Zavaleta MD #### CELP #### [address] [phone] Router Operator: Zac Servin MD Gliadin Deam Pep IgA 1.1 U/mL Normal <7.0 [facility] Comment on above: Result Comment: CELIAC INTERPRETATION <7.0 Negative 7.0-10.0 Equivocal >10.0 Positive units: U/mL Performed By: #### C PBILC, CDP, LIP #### [address] [place] [address] Router Operator: Remy Zavaleta MD #### CELP #### [address] [id number] Router Operator: Zac Servin MD Tiss Transglutam IgA 0.4 U/mL Normal <7.0 [facility] Comment on above: Result Comment: CELIAC INTERPRETATION <7.0 Negative 7.0-10.0 Equivocal >10.0 Positive units: U/mL Performed By: #### C PBILC, CDP, LIP #### [facility] [address] [place] [address] [place] [address] Router Operator: Remy Zavaleta MD #### CELP #### [address] [place] [address] Router Operator: Zac Servin MD Celiac Disease Panelon 12-26 IgA [Mass/Vol] 188 mg/dL Normal 70-400 [facility] Comment on above: Performed By: #### C PBILC, CDP, LIP #### [address] [place] [phone] Router Operator: Remy Zavaleta MD #### CELP #### [address] [address] Router Operator: Zac Servin MD CBC with Diffon 12-26-2023 Abs. Basophil 0.03 k/uL Normal 0.00-0.20 [facility] Comment on above: Performed By: #### C PBILC, CDP, LIP #### [address] [place] [address] Router Operator: Remy Zavaleta MD #### CELP #### [place] [address] Router Operator: Zac Servin MD Abs.Imm.Granulocyte <0.03 Normal 0.00-0.30 [facility] Comment on above: Performed By: #### C PBILC, CDP, LIP #### [address] [place] [address] Router Operator: Remy Zavaleta MD #### CELP #### [place] [address] Router Operator: Zac Servin MD Abs.Neutrophil (Seg) 4.18 k/uL Normal 1.50-8.10 [facility] Comment on above: Performed By: #### C PBILC, CDP, LIP #### [address] [place] 9237083 Router Operator: Remy Zavaleta MD #### CELP #### [place] [address] [place] [address] Router Operator: Zac Servin MD Basophils/100 WBC (Bld) 0 % Normal 0-2 [facility] Comment on above: Performed By: #### C PBILC, CDP, LIP #### [address] [place] [phone] Router Operator: Remy Zavaleta MD #### CELP #### [address] [address] Router Operator: Zac Servin MD Eosinophils (Bld) [#/Vol] 0.29 10*3/uL Normal 0.00-0.44 [facility] Comment on above: Performed By: #### C PBILC, CDP, LIP #### [address] [place] [phone] ( Router Operator: Remy Zavaleta MD #### CELP #### [place] [phone] Router Operator: Zac Servin MD Eosinophils/100 WBC (Bld) 4 % Normal 1-4 [facility] Comment on above: Performed By: #### C PBILC, CDP, LIP #### [address] [place] [phone] Router Operator: Remy Zavaleta MD #### CELP #### [address] [address] Router Operator: Zac Servin MD Erythrocyte distribution width (RBC) [Ratio] 15.9 % High 11.8-14.4 [facility] Comment on above: Performed By: #### C PBILC, CDP, LIP #### [address] [place] 9237083 Router Operator: Remy Zavaleta MD #### CELP #### [address] [phone] Router Operator: Zac Servin MD Hematocrit (Bld) [Volume fraction] 43.5 % Normal 36.3-47.1 [facility] Comment on above: Performed By: #### C PBILC, CDP, LIP #### [facility] [address] [place] 9237083 Router Operator: Remy Zavaleta MD #### CELP #### [address] [phone] Router Operator: Zac Servin MD Hemoglobin (Bld) [Mass/Vol] 13.4 g/dL Normal 11.9-15.1 [facility] Comment on above: Performed By: #### C PBILC, CDP, LIP #### [address] [place] [phone] Router Operator: Remy Zavaleta MD #### CELP #### [place] [phone] Router Operator: Zac Servin MD Immature granulocytes/100 WBC (Bld) 0 % Normal 0 [facility] Comment on above: Performed By: #### C PBILC, CDP, LIP #### [address] [place] 9237083 Router Operator: Remy Zavaleta MD #### CELP #### [address] [address] Router Operator: Zac Servin MD Lymphocytes (Bld) [#/Vol] 1.87 10*3/uL Normal 1.10-3.70 [facility] Comment on above: Performed By: #### C PBILC, CDP, LIP #### [address] [place] 9237083 Router Operator: Remy Zavaleta MD #### CELP #### [address] [phone] Router Operator: Zac Servin MD Lymphocytes/100 WBC (Bld) 27 % Normal 24-43 [facility] Comment on above: Performed By: #### C PBILC, CDP, LIP #### [address] [place] 9237083 Router Operator: Remy Zavaleta MD #### CELP #### [address] [phone] Router Operator: Zac Servin MD MCH (RBC) [Entitic mass] 25.8 pg Normal 25.2-33.5 [facility] Comment on above: Performed By: #### C PBILC, CDP, LIP #### [address] [place] 9237083 Router Operator: Remy Zavaleta MD #### CELP #### [place] [address] Router Operator: Zac Servin MD MCHC (RBC) [Mass/Vol] 30.8 g/dL Normal 28.4-34.8 [facility] Comment on above: Performed By: #### C PBILC, CDP, LIP #### [address] [place] 9237083 Router Operator: Remy Zavaleta MD #### CELP #### [place] [phone] Router Operator: Zac Servin MD MCV (RBC) [Entitic vol] 83.8 fL Normal 82.6-102.9 [facility] Comment on above: Performed By: #### C PBILC, CDP, LIP #### [address] [place] [address] Router Operator: Remy Zavaleta MD #### CELP #### [address] [address] Router Operator: Zac Servin MD Monocytes (Bld) [#/Vol] 0.51 10*3/uL Normal 0.10-1.20 [facility] Comment on above: Performed By: #### C PBILC, CDP, LIP #### [facility] [address] [place] [address] Router Operator: Remy Zavaleta MD #### CELP #### [address] [address] Router Operator: Zac Servin MD Monocytes/100 WBC (Bld) 7 % Normal 3-12 [facility] Comment on above: Performed By: #### C PBILC, CDP, LIP #### [address] [place] [address] Router Operator: Remy Zavaleta MD #### CELP #### [address] [address] Router Operator: Zac Servin MD Neutrophil (Seg) 62 % Normal 36-65 [facility] Comment on above: Performed By: #### C PBILC, CDP, LIP #### [address] [place], [place] [phone] Router Operator: Remy Zavaleta MD #### CELP #### [address] [address] Router Operator: Zac Servin MD NRBC Automated 0.0 per 100 WBC Normal 0.0 [facility] Comment on above: Performed By: #### C PBILC, CDP, LIP #### [address] [place], [place] 5091383 Router Operator: Remy Zavaleta MD #### CELP #### [address] [phone] Router Operator: Zac Servin MD Platelet mean volume (Bld) [Entitic vol] 9.8 fL Normal 8.1-13.5 [facility] Comment on above: Performed By: #### C PBILC, CDP, LIP #### [facility] [address] [place], [place] 8244783 Router Operator: Remy Zavaleta MD #### CELP #### [place] [address] [place], [place] 1893308 Router Operator: Zac Servin MD Platelets (Bld) [#/Vol] 341 10*3/uL Normal 138-453 [facility] Comment on above: Performed By: #### C PBILC, CDP, LIP #### [facility] [address] [place] [address] Dr[address] [place] 9237083 Router Operator: Remy Zavaleta MD #### CELP #### [address] [address] Router Operator: Zac Servin MD RBC (Bld) [#/Vol] 5.19 10*6/uL High 3.95-5.11 [facility] Comment on above: Performed By: #### C PBILC, CDP, LIP #### [facility] [address] [place] [address] Dr[address] [place] 9237083 Router Operator: Remy Zavaleta MD #### CELP #### [place] [address] [place], [place] 1104808 Router Operator: Zac Servin MD WBC (Bld) [#/Vol] 6.9 10*3/uL Normal 3.5-11.3 [facility] Comment on above: Performed By: #### C PBILC, CDP, LIP #### [facility] [address] [place] [address] Router Operator: Remy Zavaleta MD #### CELP #### [place] [address] [place] [address] Router Operator: Zac Servin MD Comp Metab w/Bili Pron 12-25 Albumin [Mass/Vol] 4.3 g/dL Normal 3.5-5.2 [facility] Comment on above: Performed By: #### C PBILC, CDP, LIP #### [address] [place], [place] 4410183 Router Operator: Remy Zavaleta MD #### CELP #### [place] [address] [place] [address] Router Operator: Zac Servin MD Albumin/Glob Ratio 1.4 Normal 1.0-2.5 [facility] Comment on above: Performed By: #### C PBILC, CDP, LIP #### [address] [place] 9237083 Router Operator: Remy Zavaleta MD #### CELP #### [address] [address] Router Operator: Zac Servin MD Alkaline Phos 91 U/L Normal 35-104 [facility] Comment on above: Performed By: #### C PBILC, CDP, LIP #### [address] [place] 9237083 Router Operator: Remy Zavaleta MD #### CELP #### [address] [address] Router Operator: Zac Servin MD ALT [Catalytic activity/Vol] 22 U/L Normal 5-33 [facility] Comment on above: Performed By: #### C PBILC, CDP, LIP #### [address] [place], [place] 5344383 Router Operator: Remy Zavaleta MD #### CELP #### [place] [address] [place] [address] Router Operator: Zac Servin MD Anion gap [Moles/Vol] 10 mmol/L Normal 9-17 [facility] Comment on above: Performed By: #### C PBILC, CDP, LIP #### [facility] [address] [place], [place] 3631783 Router Operator: Remy Zavaleta MD #### CELP #### [address] [address] Router Operator: Zac Servin MD AST [Catalytic activity/Vol] 16 U/L Normal <32 [facility] Comment on above: Performed By: #### C PBILC, CDP, LIP #### [facility] [address] [place] [address] [address] [place], [place] 7003983 Router Operator: Remy Zavaleta MD #### CELP #### [address] [address] Router Operator: Zac Servin MD Bilirubin [Mass/Vol] 0.3 mg/dL Normal 0.3-1.2 [facility] Comment on above: Performed By: #### C PBILC, CDP, LIP #### [facility] [address] [place] [address] Dr. [place], [place] 9114783 Router Operator: Remy Zavaleta MD #### CELP #### [address] [address] Router Operator: Zac Servin MD Bilirubin, Indirect Can not be calculated Normal 0.0-1 .0 [facility] Comment on above: Performed By: #### C PBILC, CDP, LIP #### [facility] [address] [place], [place] [id number] Router Operator: Remy Zavaleta MD #### CELP #### [address] [address] Router Operator: Zac Servin MD Bilirubin.indirect [Mass/Vol] mg/dL Normal <0.3 [facility] Comment on above: Performed By: #### C PBILC, CDP, LIP #### [facility] [address] [place], [place] 7718183 Router Operator: Remy Zavaleta MD #### CELP #### [address] [address] Router Operator: Zac Servin MD Calcium [Mass/Vol] 8.9 mg/dL Normal 8.6-10.4 [facility] Comment on above: Performed By: #### C PBILC, CDP, LIP #### [facility] [address] [place], [place] 2317083 Router Operator: Remy Zavaleta MD #### CELP #### [address] [address] Router Operator: Zac Servin MD Chloride [Moles/Vol] 101 mmol/L Normal 98-107 [facility] Comment on above: Performed By: #### C PBILC, CDP, LIP #### [facility] [address] [place], [place] 7458883 Router Operator: Remy Zavaleta MD #### CELP #### [address] [address] Router Operator: Zac Servin MD CO2 [Moles/Vol] 27 mmol/L Normal 20-31 [facility] Comment on above: Performed By: #### C PBILC, CDP, LIP #### [facility] [address] [place], [place] 2264083 Router Operator: Remy Zavaleta MD #### CELP #### [address] [address] Router Operator: Zac Servin MD Creatinine [Mass/Vol] 0.7 mg/dL Normal 0.5-0.9 [facility] Comment on above: Performed By: #### C NIC MARIANO, LIP #### [facility] [address] [place] [address] [place] [address] Router Operator: Remy Zavaleta MD #### CELP #### [address] [id number] Router Operator: Zac Servin MD GFR/1.73 sq M.predicted among non-blacks MDRD (S/P/Bld) [Vol rate/Area] mL/min/{1.73_m2} Normal >60 [facility] Comment on above: Result Comment: These [...] By: #### C NIC MARIANO, LIP #### [address] [place] [address] Router Operator: Remy Zavaleta MD #### CELP #### [address] [id number] Router Operator: Zac Servin MD Glucose [Mass/Vol] 135 mg/dL High 70-99 [facility] Comment on above: Performed By: #### C NIC MARIANO, LIP #### [address] [place] [address] Router Operator: Remy Zavaleta MD #### CELP #### [address] [id number] Router Operator: Zac Servin MD Potassium [Moles/Vol] 4.1 mmol/L Normal 3.7-5.3 [facility] Comment on above: Performed By: #### C PBILC, CDP, LIP #### [facility] [address] [place] [address] Router Operator: Remy Zavaleta MD #### CELP #### [address] [address] Router Operator: Zac Servin MD Protein [Mass/Vol] 7.4 g/dL Normal 6.4-8.3 [facility] Comment on above: Performed By: #### C PBILC, CDP, LIP #### [facility] [address] [place], [place] 4729183 Router Operator: Remy Zavaleta MD #### CELP #### [address] [id number] Router Operator: Zac Servin MD Sodium [Moles/Vol] 138 mmol/L Normal 135-144 [facility] Comment on above: Performed By: #### C PBILC, CDP, LIP #### [facility] [address] [place], [place] 3603483 Router Operator: Remy Zavaleta MD #### CELP #### [address] [address] Router Operator: Zac Servin MD Urea nitrogen [Mass/Vol] 12 mg/dL Normal 6-20 [facility] Comment on above: Performed By: #### C PBILC, CDP, LIP #### [facility] [address] [place], [place] 2202783 Router Operator: Remy Zavaleta MD #### CELP #### [address] [address] Router Operator: Zac Servin MD Lipaseon 12-26-2023 Lipase [Catalytic activity/Vol] 36 U/L Normal 13-60 [facility] Comment on above: Performed By: #### C PBILC, CDP, LIP #### [facility] [address] [place] [address] Router Operator: Remy Zavaleta MD #### CELP #### [facility] [address] [place] [address] Router Operator: Zac Servin MD COMPLETE BLOOD COUNTon 12-12 Erythrocyte distribution width (RBC) [Ratio] 18.2 % High 11.5-15.0 [facility] Comment on above: Performed By: #### C BC CMP, 35491-6, THYR #### [facility] ([id number]) [address], [address] [place] [address] Hematocrit (Bld) [Volume fraction] 42.1 % Normal 35-47 [facility] Comment on above: Performed By: #### C BC CMP, 15172-8, THYR #### [facility] ([id number]) [address], [address] [place] [address] Hemoglobin (Bld) [Mass/Vol] 13.6 g/dL Normal 11.7-15.5 [facility] Comment on above: Performed By: #### C BC, CMP, 20339-6, THYR #### [facility] ([id number]) [address], [address] [place] [address] MCH (RBC) [Entitic mass] 26.3 pg Low 27-34 [facility] Comment on above: Performed By: #### C BC, CMP, 43161-2, THYR #### [facility] ([id number]) [address], [address] [place] [address] MCHC (RBC) [Mass/Vol] 32.4 g/dL Normal 32-36 [facility] Comment on above: Performed By: #### C BC, CMP, 68701-3, THYR #### [facility] ([id number]) [address], [address] [place] [address] MCV (RBC) [Entitic vol] 81 fL Normal 80-100 [facility] Comment on above: Performed By: #### Gino HARRIS CMP, 59727-1, THYR #### [facility] ([id number]) [address], [address] [place] [address] Platelet mean volume (Bld) [Entitic vol] 8.2 fL Normal 7-12 [facility] Comment on above: Performed By: #### Gino HARRIS CMP, 61329-6, THYR #### [facility] ([id number]) [address] [facility] [address] [place] [address] Platelets (Bld) [#/Vol] 338 10*3/uL Normal 150-450 [facility] Comment on above: Performed By: #### Gino HARRIS CMP, 69856-6, THYR #### [facility] ([id number]) [address], [address] [place] [address] RBC COUNT 5.19 X10E12/L Normal 3.80-5.20 [facility] Comment on above: Performed By: #### Gino HARRIS CMP, 59592-1, THYR #### [facility] ([id number]) [address] [place] [address] WBC (Bld) [#/Vol] 7.7 10*3/uL Normal 4.0-11.0 [facility] Comment on above: Performed By: #### Gino HARRIS CMP, 23983-0, THYR #### [facility] ([id number]) [address], [address] [place] [address] COMPREHENSIVE METABOLIC PANE Toribio 12-13-2023 Albumin [Mass/Vol] 4.4 g/dL Normal 3.2-5.3 [facility] Comment on above: Performed By: #### C BC CMP, 07370-3, THYR #### [facility] ([id number]) [address], [address] [place] [address] ALP [Catalytic activity/Vol] 81 U/L Normal 39-130 [facility] Comment on above: Performed By: #### C BC, CMP, 71713-2, THYR #### [facility] ([id number]) [address], [address] [place] [address] ALT [Catalytic activity/Vol] 27 U/L Normal 0-31 [facility] Comment on above: Performed By: #### C BC, CMP, 63987-4, THYR #### [facility] ([id number]) [address], [address] [place] [address] Anion gap [Moles/Vol] 9 mmol/L Normal 5-15 [facility] Comment on above: Performed By: #### C BC, CMP, 97227-0, THYR #### [facility] ([id number]) [address], [address] [place] [address] AST [Catalytic activity/Vol] 20 U/L Normal 0-41 [facility] Comment on above: Performed By: #### Gino BC, CMP, 71763-6, THYR #### [facility] ([id number]) [address], [address] [place] [address] Bilirubin [Mass/Vol] 0.4 mg/dL Normal 0.3-1.2 [facility] Comment on above: Performed By: #### C BC, CMP, 30370-5, THYR #### [facility] ([id number]) [address], [address] [place] [address] Calcium [Mass/Vol] 9.2 mg/dL Normal 8.5-10.5 [facility] Comment on above: Performed By: #### C BC, CMP, 51581-5, THYR #### [facility] ([id number]) [address] [place] [address] Chloride [Moles/Vol] 103 mmol/L Normal 98-109 [facility] Comment on above: Performed By: #### Gino HARRIS CMP, 79852-6, THYR #### [facility] ([id number]) [address], [address] [place] [address] CO2 [Moles/Vol] 26 mmol/L Normal 22-32 [facility] Comment on above: Performed By: #### Gino HARRIS CMP, 52129-4, THYR #### [facility] ([id number]) [address] [place] [address] Creatinine [Mass/Vol] 0.69 mg/dL Normal 0.40-1.00 [facility] Comment on above: Result Comment: METH OD TRACEABLE TO IDMS STANDARD Performed By: #### Gino HARRIS CMP, 74470-9, THYR #### [facility] ([id number]) [address] [place] [address] eGFR (CKD-EPI) NON-RACE DEPENDENT >90 Normal >59 [facility] Comment on above: Result Comment: Reported eGFR is based on the CKD-EPI 1 equation that does not use a race coefficient. Performed By: #### Gino HARRIS CMP, 08497-5, THYR #### [facility] ([id number]) [address], [address] [place] [address] Glucose [Mass/Vol] 128 mg/dL High 65-99 [facility] Comment on above: Performed By: #### Gino HARRIS CMP, 18237-2, THYR #### [facility] ([id number]) [address] [place] [address] Potassium [Moles/Vol] 4.2 mmol/L Normal 3.5-5.0 [facility] Comment on above: Performed By: #### Gino HARRIS, CMP, 59379-0, THYR #### [facility] ([id number]) [address] [place] [address] Protein [Mass/Vol] 7.4 g/dL Normal 6.0-8.0 [facility] Comment on above: Performed By: #### Gino HARRIS CMP, 33285-2, THYR #### [facility] ([id number]) [address] [place] [address] Sodium [Moles/Vol] 138 mmol/L Normal 134-146 [facility] Comment on above: Performed By: #### Gino HARRIS CMP, 75572-9, THYR #### [facility] ([id number]) [address] [place] [address] Urea nitrogen [Mass/Vol] 10 mg/dL Normal 5-23 [facility] Comment on above: Performed By: #### Gino HARRIS, CMP, 33681-7, THYR #### [facility] ([id number]) [address] [place] [address] Lipid 1996 panelon 4 Cholesterol [Mass/Vol] 137 mg/dL Low 150-200 [facility] Comment on above: Performed By: #### Gino HARRIS CMP, 95241-8, THYR #### [facility] ([id number]) [address] [place] [address] Cholesterol in HDL [Mass/Vol] 48 mg/dL Normal >39 [facility] Comment on above: Result Comment: HDL <40 mg/dL - High Risk HDL > or = 40mg/dL- Desirable HDL >60 mg/dL - Negative Risk Performed By: #### Gino BC, CMP, 86107-5, THYR #### [facility] ([id number]) [address] [facility] [address] [place] [address] Cholesterol in LDL [Mass/Vol] 62 mg/dL Normal <130 [facility] Comment on above: Result Comment: LDL <100 mg/dL - Desirable LDL >160 mg/dL - High Risk Performed By: #### Gino BC, CMP, 06496-8, THYR #### [facility] ([id number]) [address] [address] [place] [address] Cholesterol in VLDL [Mass/Vol] 27 mg/dL Normal 0-30 [facility] Comment on above: Performed By: #### Gino BC, CMP, 03257-2, THYR #### [facility] ([id number]) [address] [place] [address] CHOLESTEROL:HDL 2.9 Normal 1.0-5.0 [facility] Comment on above: Performed By: #### Gino BC, CMP, 81015-4, THYR #### [facility] ([id number]) [address] [address] [place] [address] Triglyceride [Mass/Vol] 136 mg/dL Normal 27-150 [facility] Comment on above: Performed By: #### Gino BC, CMP, 42344-9, THYR #### [facility] ([id number]) [address] [address] [place] [address] THYROID PROFILEon 12-13-2023 Free T4 [Mass/Vol] 1.01 ng/dL Normal 0.61-1.60 [facility] Comment on above: Performed By: #### Gino BC, CMP, 99026-7, THYR #### [facility] ([id number]) [address] [facility], [address] [place] [address] TSH 1.81 uIU/mL Normal 0.49-4.67 [facility] Comment on above: Performed By: #### C BC, [facility], [address]24[address]-2, THYR #### [facility] ([id number]) [address] [place] [address], [address] [place] [address] XR CHEST 2 VWSon 12-13-2023 XR CHEST [...] Rogers MD on 12/13/2023 2:14 PM Normal [facility] H PYLORI SCREENon 11-20-2023 H. pylori Org specific cx Ql (Ashwini fld) Negative Normal NEG [facility] Comment on above: Performed By: #### 4 4015-6 #### [facility] ([id number]) [address] [place] [address], [address] [place] [address] Surgical Pathologyon 024 Surgical Pathology Normal [facility] Comment on above: Result Comment: [facility] [address] [place] [address] Surgical Pathology Consultation Patient Name:RAYA GONZALES:1980 (Age: 43)Gender:FTaken:4Reported:4Physician(s):Marlon Tillman D.O. ([phone])Copy To: Rec. #:[id number]: #[id number] Final Pathologic Diagnosis 1. Duodenal biopsies: Normal [...] and hyperplastic polyps. Report Electronically Signed [facility]2023Froylan Sahu M.D. Interpretation performed at [facility], [address] [place] [address], License number: [id number]. Clinical History GERD/rectal bleed. 4. Snared a polyp. 5. Snared a polyp. 6. Snared polyps x3. Gross Description 1. Received in formalin labeled [place], duodenum BX are two light robles soft tissue bits, 0.2 cm each. The specimen is filtered and entirely submitted in a single cassette. (1, ns, T13-63918-7,m8) DM. 2. Received in formalin labeled [place], antrum BX are two light robles soft tissue bits, 0.3 and 0.4 cm. The specimen is filtered and entirely submitted in a single cassette. (1, ns, [id number],m8) DM. 3. Received in formalin labeled [place], distal esophagus BX are four light robles soft tissue bits, 0.1-0.2 cm. The specimen is filtered and entirely submitted in a single cassette. (1, ns, G37-28817-2,m8) DM. 4. Received in formalin labeled [place], hepatic flexure polyp are four light robles feathery soft tissue bits, 0.1-0.5 cm. The specimen is filtered and entirely submitted in a single cassette. (1, ns, C95-18206-4,m8) DM. 5. Received in formalin labeled [place], descending colon polyp are two light robles soft tissue bits, 0.1 and 0.6 cm. The specimen is filtered and entirely submitted in a single cassette. (1, ns, S26-30624-3,m8) DM. 6. Received in formalin labeled [place], sigmoid colon polyp are five light robles soft tissue bits, 0.2-0.4 cm. The specimen is filtered and entirely submitted in a single cassette. (1, ns, N11-08393-9,m8) DM. dm/11/21/2023NSK Specimen(s) Received 1: Duodenum biopsy 2: Antrum biopsy 3: Distal esophageal biopsy 4: Hepatic flexure polyp 5: Descending colon polyp 6: Sigmoid colon polyp Fee Codes(s): 1; 56951 2; 77914 3; 25857, 3126F 4; 73850 5; 69181 6; 85202 CNPLilliana 02-01-2022 FEDEIRCO Telephone (RAJANI) RAYA GONZALES ([id number]) 1980 F Date Time Provider Department 02/01/22 [...] Encounter Status:Closed by [facility] ARCE on 02/10/22 [facility] ERRONEOUSENCon 02-01-2022 ERRONEOUSENC [id number] Tia Gonzales sa 1980 F * Clinical document posted in Error * Encounter Type Conversion History User Instant Changed From Changed To MARY WALDEN Feb 10, 2022 3* Telephone Erroneous* [facility] Vital Signs Date Time Vital Sign Value Performing Clinician Facility 07-30-2024 13:03-0500 Body height 162.6 cm Elvi Chapman MD Work Phone: [facility] 07-30-2024 13:03-0500 Body mass index (BMI) [Ratio] 46.59 kg/m2 Elvi Chapman MD Work Phone: [facility] 07-30-2024 13:03-0500 Body weight 123.11 kg Elvi Chapman MD Work Phone: [facility] 07-30-2024 13:03-0500 Diastolic blood pressure 102 mm[Hg] Elvi Chapman MD Work Phone: [facility] 07-30-2024 13:03-0500 Systolic blood pressure 158 mm[Hg] Elvi Chapman MD Work Phone: [facility] 07-09-2024 14:11-0500 Body height 162.6 cm Elvi Chapman MD Work Phone: [facility] 07-09-2024 14:11-0500 Body mass index (BMI) [Ratio] 47.03 kg/m2 Elvi Chapman MD Work Phone: [facility] 07-09-2024 14:11-0500 Body weight 124.29 kg Elvi Chapman MD Work Phone: [facility] 07-09-2024 14:11-0500 Diastolic blood pressure 78 mm[Hg] Elvi Chapman MD Work Phone: [facility] 07-09-2024 14:11-0500 Systolic blood pressure 124 mm[Hg] Elvi Chapman MD Work Phone: [facility] 06-19-2024 14:21-0500 Body height 162.6 cm [facility] [employer] [facility] 06-19-2024 14:21-0500 Body mass index (BMI) [Ratio] 47.03 kg/m2 [facility] [employer] [facility] 06-19-2024 14:21-0500 Body weight 124.29 kg [facility] [employer] [facility] 06-19-2024 14:21-0500 Diastolic blood pressure 98 mm[Hg] [facility] [employer] [facility] 06-19-2024 14:21-0500 Systolic blood pressure 150 mm[Hg] [facility] 06-12-2024 14:06-0500 Body height 162.6 cm [facility] 06-12-2024 14:06-0500 Body mass index (BMI) [Ratio] 30.38 kg/m2 [facility] 06-12-2024 14:06-0500 Body weight 80.29 kg [facility] 06-12-2024 14:06-0500 Diastolic blood pressure 92 mm[Hg] [facility] 06-12-2024 14:06-0500 Systolic blood pressure 140 mm[Hg] [facility] 05-31-2024 14:54-0400 Body height 162.6 cm Ekaterina Villegas APRN[employer] Work Phone: [facility] 05-31-2024 14:54-0400 Body mass index (BMI) [Ratio] 49.68 kg/m2 Ekaterina Villegas [employer] Work Phone: [facility] 05-31-2024 14:54-0400 Body weight 131.27 kg Ekaterina Villegas [employer] Work Phone: [facility] 05-31-2024 14:54-0400 Diastolic blood pressure 85 mm[Hg] Ekaterina Villegas [employer] Work Phone: [facility] 05-31-2024 14:54-0400 Heart rate 85 /min Ekaterina Villegas [employer] Work Phone: [facility] 05-31-2024 14:54-0400 Systolic blood pressure 146 mm[Hg] Ekaterina Villegas [employer] Work Phone: [facility] 11-17-2023 13:49-0400 Body height 162.6 cm Yojana Phan MD PhD Work Phone: [facility] 11-17-2023 13:49-0400 Body mass index (BMI) [Ratio] 47.89 kg/m2 Yojana Phan MD PhD Work Phone: [facility] 11-17-2023 13:49-0400 Body weight 126.55 kg Yojana Phan MD PhD Work Phone: [facility] 11-17-2023 13:49-0400 Diastolic blood pressure 88 mm[Hg] Yojana Phan MD PhD Work Phone: [facility] 11-17-2023 13:49-0400 Heart rate 90 /min Yojana Phan MD PhD Work Phone: [facility] 11-17-2023 13:49-0400 Respiratory rate 20 /min Yojana Phan MD PhD Work Phone: [facility] 11-17-2023 13:49-0400 Systolic blood pressure 138 mm[Hg] Yojana Phan MD PhD Work Phone: [facility] Encounters Encounter Date Encounter Type Care Provider Facility Start: 08-05-2024 End: 08-05-2024 Telephone encounter Elvi Chapman MD Work Phone: [facility] Start: 07-30-2024 End: 07-30-2024 Office outpatient visit 15 minutes Elvi Chapman MD Work Phone: [facility] Comment on above: DUB (dysfunctional u terine bleeding) (Primary Dx) Start: 07-30-2024 End: 08-01-2024 ambulatory [facility] Start: 07-15-2024 End: 07-15-2024 ambulatory [facility] Start: 07-15-2024 End: 07-15-2024 ambulatory [facility] Start: 07-09-2024 End: 07-09-2024 ambulatory ELVI [facility] Start: 07-09-2024 End: 07-09-2024 Office outpatient visit 25 minutes Elvi Chapman MD Work Phone: [facility] Comment on above: DUB (dysfunctional u terine bleeding) (Primary Dx); Dysmenorrhea Start: 06-24-2024 End: 06-24-2024 ambulatory [facility] Start: 06-21-2024 End: 06-21-2024 Emergency department patient visit [facility] Start: 06-19-2024 End: 06-19-2024 Patient encounter procedure [facility] Start: 06-19-2024 End: 06-19-2024 Periodic preventive med est patient 40-64yrs [facility] [employer] [facility] Comment on above: Well woman exam with routine gynecological exam (Primary Dx); Cervical smear, as part of routine gynecological examination; Standardized adult depression screening tool completed; Anxiety and depression Start: 06-19-2024 End: 06-19-2024 ambulatory [facility] Start: 06-19-2024 End: 06-19-2024 Encounter for gynecological examination (general) (routine) without abnormal findings [facility] Start: 06-19-2024 End: 06-19-2024 ambulatory [facility] Start: 06-19-2024 Encounter for gynecological examination (general) (routine) without abnormal findings [facility] Start: 06-17-2024 End: 06-17-2024 ambulatory EKATERINA VILLEGAS [facility] Start: 06-12-2024 End: 06-12-2024 [facility]ulatory [facility] Start: 06-12-2024 End: 06-12-2024 Office outpatient new 30 minutes [facility] [employer] [facility] Comment on above: Abnormal uterine ble eding (AUB) (Primary Dx); Vaginal lesion Start: 06-12-2024 End: 06-12-2024 ambulatory [facility] Start: 06-12-2024 End: 06-18-2024 Telephone encounter Khadijah Foreman RN [facility] Comment on above: New Patient Start: 05-31-2024 End: 05-31-2024 ambulatory EKATERINA [facility] Start: 05-31-2024 End: 05-31-2024 Office outpatient visit 40 minutes Ekaterina Bakari [employer] Work Phone: [facility] Comment on [...] 09/05 guadalupe Start: 03-05-2024 End: 03-05-2024 ambulatory [facility] Start: 02-27-2024 End: 02-27-2024 ambulatory [facility] Start: 01-30-2024 End: 01-31-2024 Emergency department patient visit [facility] Start: 01-30-2024 End: 01-30-2024 Emergency department patient visit [facility] Start: 01-30-2024 End: 01-31-2024 Emergency department patient visit [facility] Start: 01-26-2024 End: 01-26-2024 ambulatory [facility] [facility] Start: 01-23-2024 End: 01-23-2024 ambulatory ADELINE [facility] Start: 01-03-2024 End: 01-04-2024 Emergency department patient visit CHARLIE YOUNG [facility] Start: 01-02-2024 End: 01-04-2024 ambulatory [facility] Start: 01-02-2024 End: 01-04-2024 Subsequent hospital visit by physician [facility]ound Room [facility] Comment on above: RUQ abdominal pain Start: 12-26-2023 End: 12-26-2023 ambulatory [facility] Start: 12-14-2023 End: 12-14-2023 ambulatory ENMA PURCELL [facility] Start: 12-13-2023 End: 12-13-2023 ambulatory [facility] Start: 11-21-2023 End: 11-21-2023 Evaluation and management of inpatient LILY SNELL [facility] Start: 11-20-2023 End: 11-21-2023 Evaluation and management of inpatient MARLON TILLMAN [facility] Start: 11-17-2023 End: 11-18-2023 ambulatory YOJANA SERRA [facility] Start: 11-17-2023 End: 11-17-2023 Office outpatient new 60 minutes Yojana Phan MD PhD Work Phone: [facility] Comment on above: Polyneuropathy (Prim brianna Dx); Vertigo; Balance problem; Cataract of right eye, unspecified cataract type; Multiple sclerosis (Multi) Start: 11-14-2023 End: 11-14-2023 ambulatory [facility] Start: 11-01-2023 End: 11-01-2023 ambulatory JANELL GARDNER [facility] Start: 10-10-2023 Telephone encounter Janell Gardner [employer] Work Phone: [facility] Procedures Date Procedure Procedure Detail Performing Clinician Start: 06-19-2024 Adult depression scr eening assessment [facility] Machine Iii Coremaker Start: 06-19-2024 Microscopic observat ion [Identifier] in Cervix by Cyto stain Elvi Chapman MD Work Phone: Start: 05-31-2024 Follow-up visit Follow-up NAVI ZAPIEN Start: 05-31-2024 Adult depression scr eening assessment Ekaterina Villegas [employer] Work Phone: Start: 03-05-2024 Mammography [facility] Start: 01-26-2024 Adult depression scr eening assessment Chante Rowell Start: 01-02-2024 Us abdominal real ti me w/image limited Adeline R Alejandro [employer] Work Phone: Start: 11-20-2023 Colonoscopy Chante So viar Start: 10-23-2020 Adult depression scr eening assessment Janell Gardner [employer] Work Phone: Plan of Treatment Date Care Activity Detail Author Start: 2041 RSV patient s and/or patients aged 60+ years (1 - 1-dose 60+ series) RSV patients and/or patients aged 60+ years (1 - 1-dose 60+ series) [facility] Start: 2031 Zoster Vaccines (1 of 2) Zoster Vacc esvin (1 of 2) [facility] Start: 11-19-2028 Screening for malign ant neoplasm of colon Colonoscopy [facility] Start: 06-19-2027 Screening for malign ant neoplasm of cervix Pap Smear [facility] Start: 07-30-2025 Adult BMI Screening Adult BMI Screen ing [facility] Start: 07-30-2025 Tobacco Screening Tobacco Screening [facility] Start: 07-09-2025 Adult BMI Screening Adult BMI Screen ing [facility] Start: 07-09-2025 Tobacco Screening Tobacco Screening [facility] Start: 06-19-2025 Adult BMI Follow Up Plan Adult BMI F ollow Up Plan [facility] Start: 06-19-2025 Adult BMI Screening Adult BMI Screen ing [facility] Start: 06-19-2025 Depression Screening Depression Scre ening [facility] Start: 06-19-2025 Tobacco Screening Tobacco Screening [facility] Start: 06-12-2025 Adult BMI Screening Adult BMI Screen ing [facility] Start: 06-12-2025 Tobacco Screening Tobacco Screening [facility] Start: 05-31-2025 Adult BMI Screening Adult BMI Screen ing [facility] Start: 05-31-2025 Depression Screening Depression Scre ening [facility] Start: 05-31-2025 Tobacco Screening Tobacco Screening [facility] Start: 03-05-2025 Screening for malign ant neoplasm of breast Mammogram [facility] Start: 02-26-2025 Adult BMI Screening Adult BMI Screen ing [facility] Start: 01-29-2025 Tobacco Screening Tobacco Screening [facility] Start: 01-25-2025 Depression Screening Depression Scre ening [facility] Start: 12-24-2024 End: 12-24-2024 Patient encounter procedure 12/24/2024 2:30 PM EDT Office Visit [facility] [address] [place] [address] [place] [phone] Chin Edward MD [address] [place] [address], [address] [phone] [facility] Start: 09-09-2024 End: 09-09-2024 Admission to same day surgery center 09/09/2024 1:30 PM EST - 09/09/2024 2:30 PM EST [facility] [address] [place] [phone] Elvi Chapman MD [facility] [facility] [address] [place], [place] [phone] HYSTEROSCOPY DILATION CURETTAGE ABLATION ENDOMETRIAL NOVASURE [89019 (CPT )] [facility] Comment on above: HYSTEROSCOPY DILATIO N CURETTAGE ABLATION ENDOMETRIAL NOVASURE [84895 (CPT )] Start: 09-09-2024 End: 09-09-2024 Hysteroscopy endometrial ablation HYSTEROSCOPY DILATION CURETTAGE ABLATION ENDOMETRIAL NOVASURE heavy periods 09/09/2024 1:[address] [facility] Start: 09-09-2024 Subsequent hospital visit by physician 09/09/2024 1:30 PM EST Hospital Encounter [facility] [address] [place] [phone] Elvi Chapman MD [address] [place], [place] [id number] [facility] Start: 08-20-2024 End: 08-20-2024 Patient encounter procedure 08/20/2024 1:30 PM EST Procedure visit [facility] [address] [place] [phone] [facility] Start: 07-18-2024 End: 07-18-2024 Patient encounter procedure 07/18/2024 2:30 PM EST Office Visit [facility] [address] [place] [phone] Chin Edward MD [address] [place] [address], [address] [phone] [facility] Start: 07-18-2024 End: 07-18-2024 Patient encounter procedure 07/18/2024 11:45 AM EST Office Visit [facility] [address] [place] [phone] [place] [address] [place] [address] [facility] Start: 07-15-2024 End: 07-15-2024 Patient encounter procedure [facility] Start: 07-04-2024 End: 07-04-2024 Clinical Support 07/04/2024 2:30 PM EST Clinical Support [facility] [address] [place] [phone] [facility] Start: 06-19-2024 End: 06-19-2024 Patient encounter procedure 06/19/2024 2:30 PM EST Office Visit [facility] [address] [place] [address] [facility] Start: 06-19-2024 End: 06-19-2025 Cytopathology procedure, preparation of smear, genital source Pap Smear Pathology and Cytology Routine Cervical smear, as part of routine gynecological examination Expected: 06/19/2024 (Approximate), Expires: 06/19/2025 [facility] Work Phone: Comment on above: Expected: 06/19/2024 (Approximate), Expires: 06/19/2025 Start: 06-13-2024 End: 06-13-2024 Patient encounter procedure 06/13/2024 2:30 PM EST Appointment [facility] [address] [place] [address] [facility] Start: 06-12-2024 End: 06-12-2024 Patient encounter procedure 06/12/2024 2:15 PM EST [facility] [address] [place] [address] [facility] Start: 06-12-2024 End: 06-12-2025 Herpes simplex virus by PCR,Lesion Herpes simplex virus by PCR,Lesion Lab Routine Vaginal lesion Expected: 06/12/2024 (Approximate), Expires: 06/12/2025 [facility] Comment on above: Expected: 06/12/2024 (Approximate), Expires: 06/12/2025 Start: 06-12-2024 End: 06-12-2025 US Pelvis transvaginal Ultrasound transvaginal non OB Imaging Routine Abnormal uterine bleeding (AUB) Expected: 06/12/2024, Expires: 06/12/2025 [facility] Comment on above: Expected: 06/12/2024 , Expires: 06/12/2025 Start: 05-31-2024 End: 05-31-2024 Patient encounter procedure 05/31/2024 2:30 PM EDT Office Visit [facility] [address] [facility] [place] [address] Ekaterina Villegas [employer] [address] [place] [address] [facility] Start: 05-16-2024 End: 05-16-2024 Patient encounter procedure 05/16/2024 2:30 PM EDT Office Visit [facility] [address] [facility] [place] [phone] Ekaterina Villegas, [employer] [address] [place] [address] [facility] Start: 03-31-2024 Influenza vaccination [facility] Start: 02-29-2024 Influenza vaccination Flu vacc ine (Season Ended) [facility] Start: 01-23-2024 End: 01-23-2024 Patient encounter procedure 01/23/2024 4:00 PM EDT Office Visit [facility] Part of [address] [place] [phone] Adeline Florentino, [employer] [address] [place] [address] 4 weeks [facility] Part of [facility] Comment on above: 4 weeks Start: 11-21-2023 Adult BMI Screening Adult BMI Screen ing [facility] Start: 11-21-2023 Tobacco Screening Tobacco Screening [facility] Start: 11-17-2023 End: 11-16-2024 CBC W Auto Differential panel - Blood CBC and Auto Differential Lab Routine Polyneuropathy Expected: 11/17/2023 (Approximate), Expires: 11/16/2024 [facility] Work Phone: Comment on above: Expected: 11/17/2023 (Approximate), Expires: 11/16/2024 Start: 11-17-2023 End: 11-16-2024 Cobalamin (Vitamin B12) [Mass/volume] in Serum or Plasma Vitamin B12 Lab Routine Polyneuropathy Expected: 11/17/2023 (Approximate), Expires: 11/16/2024 [facility] Work Phone: Comment on above: Expected: 11/17/2023 (Approximate), Expires: 11/16/2024 Start: 11-17-2023 End: 11-16-2024 Comprehensive metabolic 2000 panel - Serum or Plasma Comprehensive Metabolic Panel Lab Routine Polyneuropathy Expected: 11/17/2023 (Approximate), Expires: 11/16/2024 [facility] Work Phone: Comment on above: Expected: 11/17/2023 (Approximate), Expires: 11/16/2024 Start: 11-17-2023 End: 11-16-2024 Hemoglobin A1c/Hemoglobin.total in Blood Hemoglobin A1C Lab Routine Polyneuropathy Balance problem Expected: 11/17/2023 (Approximate), Expires: 11/16/2024 [facility] Work Phone: Comment on above: Expected: 11/17/2023 (Approximate), Expires: 11/16/2024 Start: 11-17-2023 End: 11-16-2024 MR Brain WO and W contrast IV MR brain w and wo IV contrast Imaging Routine Polyneuropathy Vertigo Balance problem Expected: 11/17/2023, Expires: 11/16/2024 [facility] Work Phone: Comment on above: Expected: 11/17/2023 , Expires: 11/16/2024 Start: 11-17-2023 End: 11-16-2024 Protein electrophoresis panel - Serum or Plasma Serum Protein Electrophoresis Lab Routine Polyneuropathy Expected: 11/17/2023 (Approximate), Expires: 11/16/2024 [facility] Work Phone: Comment on above: Expected: 11/17/2023 (Approximate), Expires: 11/16/2024 Start: 11-17-2023 End: 11-16-2024 TSH with reflex to Free T4 if abnormal TSH with reflex to Free T4 if abnormal Lab Routine Polyneuropathy Balance problem Expected: 11/17/2023 (Approximate), Expires: 11/16/2024 [facility] Work Phone: Comment on above: Expected: 11/17/2023 (Approximate), Expires: 11/16/2024 Start: 11-01-2023 End: 11-01-2023 Patient encounter procedure 11/01/2023 3:00 PM EDT Office Visit [facility] [address] [place] [phone] Janell Gardner, [employer] [address] [facility], [place] [phone] [facility] Start: 03-31-2023 COVID-19 Vaccine ( season) COVID-19 Vaccine ( season) [facility] Start: 03-31-2023 Influenza vaccination Influenza Vacc ine [facility] Start: 10-23-2021 Depression Screening Depression Scre ening [facility] Start: 2021 Lipid panel Lipids [facility] Start: 2021 Screening for malign ant neoplasm of breast [facility] Start: 02-16-2016 Diabetes screen Diabetes screen [facility] Start: 2011 Screening for malign ant neoplasm of cervix [facility] Start: 2003 DTaP/Tdap/Td Vaccine s (1 - Tdap) DTaP/Tdap/Td Vaccines (1 - Tdap) [facility] Start: 2002 Screening for malign ant neoplasm of cervix [facility] Start: 02-16-2000 DTaP,Tdap and Td Vac cines (1 - Tdap) DTaP,Tdap and Td Vaccines (1 - Tdap) [facility] Start: 02-16-2000 DTaP/Tdap/Td vaccine (1 - Tdap) DTaP/Tdap/Td vaccine (1 - Tdap) [facility] Start: 02-16-2000 Hepatitis B Vaccines (1 of 3 - 19+ 3-dose series) Hepatitis B Vaccines (1 of 3 - 19+ 3-dose series) [facility] Start: 1999 Adult BMI Follow Up Plan Adult BMI F ollow Up Plan [facility] Start: 1999 Diabetes mellitus screening Diabetes Screening [facility] Start: 1999 Hepatitis C screening [facility] Start: 02-16-1996 HIV screening HIV screen [facility] Start: 1994 Varicella vaccination Varicell a Vaccines (1 of 2 - 13+ 2-dose series) [facility] Start: 1993 Depression Screen Depression Screen [facility] Start: 1987 Pneumococcal Vaccine : Pediatrics (0 to 5 Years) and At-Risk Patients (6 to 64 Years) (1 of 2 - PCV) Pneumococcal Vaccine: Pediatrics (0 to 5 Years) and At-Risk Patients (6 to 64 Years) (1 of 2 - PCV) [facility] Start: 1982 MMR Vaccines (1 of 1 - Standard series) MMR Vaccines (1 of 1 - Standard series) [facility] Start: 1982 Varicella vaccine (1 of 2 - 2-dose childhood series) Varicella vaccine (1 of 2 - 2-dose childhood series) [facility] Start: 1981 COVID-19 Vaccine (#1) COVID-19 Vacci ne (#1) [facility] Start: 1981 Hepatitis B vaccine (1 of 3 - 3-dose series) Hepatitis B vaccine (1 of 3 - 3-dose series) [facility] Start: 1981 HIV screening HIV Screening [facility] Start: 1981 Lipid panel Lipid Panel [facility] Start: 1981 Tobacco Counseling Tobacco Counselin g [facility] Start: 1981 Yearly Adult Physical Yearly Adult P hysical [facility] End: 06-13-2025 CBC panel - Blood by Automated count CBC without diff Lab Routine Abnormal uterine bleeding (AUB) 1 Occurrences starting 06/12/2024 until 06/13/2025 [facility] Work Phone: Comment on above: 1 Occurrences starti ng 06/12/2024 until 06/13/2025 End: 05-31-2025 Hemoglobin A1c/Hemoglobin.total in Blood Hemoglobin A1c Lab Routine Numbness 1 Occurrences starting 05/31/2024 until 05/31/2025 [facility] Work Phone: Comment on above: 1 Occurrences starti ng 05/31/2024 until 05/31/2025 End: 06-19-2025 High risk HPV w/donta High risk HPV w/donta Lab Routine Cervical smear, as part of routine gynecological examination 1 Occurrences starting 06/19/2024 until 06/19/2025 [facility] Comment on above: 1 Occurrences starti ng 06/19/2024 until 06/19/2025 End: 06-12-2025 Thyroid profile includes TSH FT4 Thyroid profile includes TSH FT4 Lab Routine Abnormal uterine bleeding (AUB) 1 Occurrences starting 06/12/2024 until 06/12/2025 [facility] Comment on above: 1 Occurrences starti ng 06/12/2024 until 06/12/2025 Payers Date Payer Category Payer Unknown [facility] [id number] 2022-Present [address] [place] [id number] 2019 Medicaid [place] [employer] [employer] [id number] 2019-Present [phone] [place] [phone] [id number]. [id number] 2019 Medicaid [place] [id number] 2019 Unknown [id number] 1981 Unknown [id number] 2.840.1.047253.3.579.2.5 1981 Unknown [id number] 2.840.1.046577.3.579.2. 1981 Unknown [id number] 2.840.1.407585.3.579.2. 1981 Unknown [id number] 2.840.1.839068.3.579.2. 1981 Unknown [id number] 2.840.1.447125.3.579.2.1285 1981 Unknown [id number] 2.840.1.603575.3.579.2.1285 1981 Unknown [id number] 2.840.1.780115.3.579.2.1285 1981 Unknown [id number] 2.840.1.081678.3.579.2.1285 1981 Unknown [id number] 2.840.1.253946.3.579.2.1285 1981 Unknown [id number] 2.840.1.096958.3.579.2.1285 1981 Unknown [id number] 2.840.1.446590.3.579.2.1285 1981 Unknown [id number] 2.840.1.751122.3.579.2.1285 1981 Unknown [id number] 2.840.1.456835.3.579.2.1285 1981 Unknown [id number] 2.840.1.367084.3.579.2.1285 1981 Unknown [id number] 2.840.1.440326.3.579.2.1285 1981 Unknown [id number] 2..840.1.761594.3.579.2.1285 1981 Unknown [id number] 2.16.840.1.711566.3.579.2.1285 1981 Unknown [id number] 2.840.1.074931.3.579.2.1285 1981 Unknown [id number] 2.840.1.883028.3.579.2.1285 1981 Unknown [id number] 2.840.1.582228.3.579.2.1285 1981 Unknown [id number] 2.840.1.711080.3.579.2.1285 1981 Unknown [id number] 2.0.1.799010.3.579.2.1285 1981 Unknown [id number] 2.840.1.559950.3.579.2.1285 1981 Unknown [id number] 2.0.1.876994.3.579.2.1285 1981 Unknown [id number] 2.840.1.956607.3.579.2.1285 1981 Unknown [id number] 2.840.1.044424.3.579.2.1285 1981 Unknown [id number] 2.840.1.376817.3.579.2.1285 1981 Unknown [id number] 2.840.1.867061.3.579.2.1285 1981 Unknown [id number] 2.840.1.385173.3.579.2.1285 1981 Unknown [id number] 2.840.1.149352.3.579.2.1285 1981 Unknown [id number] 2.840.1.994301.3.579.2.1285 1981 Unknown [id number] 2.16.840.1.566666.3.579.2.1285 1981 Unknown [id number] 2.16.840.1.369901.3.579.2.1285 1981 Unknown [id number] 2.16.840.1.027933.3.579.2.1285 1981 Unknown [id number] 2.16.840.1.137405.3.579.2.1285 1981 Unknown [id number] 2..840.1.856387.3.579.2.1285 1981 Unknown [id number] 2.840.1.902024.3.579.2.1285 1981 Unknown [id number] 2.840.1.302399.3.579.2.1285 1981 Unknown [id number] 2.16.840.1.162586.3.579.2.1286 Social History Date Type Detail Facility Start: 10-22-2020 End: 06-12-2024 Tobacco smoking status FLIS Smokes tobacco daily [facility] Start: 11-16-1994 History of tobacco use Cigarette Smo ker [facility] Start: 10-22-2020 End: 07-30-2024 Cigarettes smoked current (pack per day) - Reported 0.5 [facility] Start: 10-22-2020 End: 06-12-2024 Tobacco use and exposure Smokeless tobacco non-user [facility] Start: 11-20-2022 End: 05-31-2024 Alcohol intake Ex-drinker (finding) [facility] Start: 10-22-2020 End: 10-23-2020 Social connection and isolation panel [facility] Do you belong to any clubs or organizations such as temple groups, unions, fraternal or athletic groups, or school groups? No [facility] Are you now , , , , never or living with a partner? Not asked [facility] Do you feel stress - tense, restless, nervous, or anxious, or unable to sleep at night because your mind is troubled all the time - these days [OSQ] Only a little [facility] Start: 1981 Sex Assigned At Not on file [employer] [facility] Start: 11-07-2023 End: 11-17-2023 Exposure to SARS-CoV-2 (event) Not sure [facility] Tobacco smoking stat [facility] Tobacco smoking consumption unknown [facility] Start: 11-01-2023 Alcohol Comment occasional [facility] Start: 04-12-2015 Sex Female (finding) [facility] Start: 06-12-2024 End: 07-30-2024 Alcoholic beverage intake Current drinker of alcohol (finding) [facility] NEGATED: Highlighted rowStart: NINF History of tobacco use Passive smoker [facility] Work Phone: Medical Equipment Procedure Code Equipment Code Equipment Origin al Text Equipment Identifier Dates Stnt Ercp Amee x 10x7 - Sgtin [id number] - [id number] Start: 10-08-2020 Comment on above: Description: [employer] Biliary duodenal bend preloaded biliary [...] and letter mailed. documented in this encounter [facility] 08-05-2024 Telephone encounter Note Patient scheduled for surgery with Dr. Chapman on 09/09/24 at 1:30pm with hospital arrival of 11:30am. PAT scheduled on 08/20/24 at 1:30pm. Patient notified of all dates and times and letter mailed. [facility] 07-30-2024 History of Present illness Narrative Raya [...] 11/20/2023 Performed by Marlon Tillman DO at [facility] ERCP N/A 11/18/2020 Performed by Mac Card MD at [facility] ERCP 10/08/[address] Valadez N/A 10/08/2020 Performed by August Valadez MD at [facility] ESOPHAGOGASTRODUODENOSCOPY 10/08/2020 Performed by August Valadez MD at [facility] ESOPHAGOGASTRODUODENOSCOPY DIAGNOSTIC N/A 11/20/2023 Performed by Marlon Tillman DO at [facility] LAPAROSCOPIC CHOLECYSTECTOMY N/A 09/26/2020 Performed by Rommel Nunez MD at [facility] LAPAROSCOPY DIAGNOSTIC N/A 11/21/2020 Performed by Rei [...] Leis 07/30/24 1346 documented in this encounter [facility]em AG 07-09-2024 History of Present illness Narrative Raya [...] 11/20/2023 Performed by Marlon Tillman DO at [facility] ERCP N/A 11/18/2020 Performed by Mac Card MD at [facility] ERCP 10/08/[address] Valadez N/A 10/08/2020 Performed by August Valadez MD at [facility] ESOPHAGOGASTRODUODENOSCOPY 10/08/2020 Performed by August Valadez MD at [facility] ESOPHAGOGASTRODUODENOSCOPY DIAGNOSTIC N/A 11/20/2023 Performed by Marlon Tillman DO at [facility] LAPAROSCOPIC CHOLECYSTECTOMY N/A 09/26/2020 Performed by Rommel Nunez MD at [facility] LAPAROSCOPY DIAGNOSTIC N/A 11/21/2020 Performed by Rei Hernandez MD at [facility] OPEN COMMON DUCT EXPLORATION N/A 11/21/2020 Performed by Rei Hernandez MD at [facility] TUBAL LIGATION FAMILY HX Family History Problem [...] Ian 07/09/24 1436 documented in this encounter [facility] 06-19-2024 History of Present illness Narrative AMAYA Amaya 06/19/24 1512 Annual Well Woman Visit 06/19/2024 Subjective Raya Gonzales is a pleasant 44 y.o. 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 Periods are irregular, lasting several days. [...] 11/20/2023 Performed by Marlon Tillman DO at [facility] ERCP N/A 11/18/2020 Performed by Mac Card MD at [facility] ERCP 10/08/[address] Valadez N/A 10/08/2020 Performed by August Valadez MD at [facility] ESOPHAGOGASTRODUODENOSCOPY 10/08/2020 Performed by August Valadez MD at [facility] ESOPHAGOGASTRODUODENOSCOPY DIAGNOSTIC N/A 11/20/2023 Performed by Marlon Tillman DO at [facility] LAPAROSCOPIC CHOLECYSTECTOMY N/A 09/26/2020 Performed by Rommel Nunez MD at [facility] LAPAROSCOPY DIAGNOSTIC N/A 11/21/2020 Performed by Rei Hernandez MD at [facility] OPEN COMMON DUCT EXPLORATION N/A 11/21/2020 Performed by Rei Hernandez MD at [facility] TUBAL LIGATION FAMILY HX Family History Problem [...] screening tool completed Anxiety and depression - [facility] [place], [place]; Future BMI is above average; Discussed eating tips for weight loss and and exercise steps. Breast self exam technique reviewed and patient encouraged to perform self-exam monthly. Discussed healthy lifestyle modifications. Educational material distributed. 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 Follow up as needed. Smoking cessation info provided. Await pap. Discussed ASCCP screening guidelines. Discussed taking a multivitamin. Discussed Calcium and Vitamin D for prevention of osteoporosis. HPV vaccine recommended between 9-45 yo. Can be received at [facility] or the [employer] department. Discussed need for yearly mammogram after 40 yo. Discussed colon cancer screening recommendations to begin at 45 yo, patient to discuss with PCP. All questions answered. KASSIE Aguilar, DEVAN-KHARI Cordova APRN-KHARI 06/19/24 2526 documented in this encounter [facility] 06-12-2024 Miscellaneous Notes Upon looking for appointment spots for other patients, came across this patient's appointment scheduled here in [place] with Dr. Edward for 60 minutes. This appointment needs cancelled and rescheduled. Per VIDYA Thapa note (in [place]) for follow up. May be able to see Joe if Cheyanne doesn't have any soon appointment. 1st attempt: Cost Clerk contacted patient and informed them that we have received their new patient referral and offered to schedule for the first available appointment with Dr. Edward in [place] - patient was agreeable. While holding, patient disconnected call. 2nd attempt: Called and left patient a voicemail once more letting them know we have received their referral, are ready to schedule, and to call us back at their earliest convenience to do so. Cost Clerk provided callback number for scheduling or to address any questions or concerns they may have. Patient has been scheduled with Dr. Edward in [place] on 12/24 documented in this encounter [facility] 06-12-2024 Telephone encounter Note Upon looking for appointment spots for other patients, came across this patient's appointment scheduled here in [place] with Dr. Edward for 60 minutes. This appointment needs cancelled and rescheduled. Per VIDYA Thapa note (in [place]) for follow up. May be able to see Joe if Cheyanne doesn't have any soon appointment. [facility] 06-12-2024 Telephone encounter Note 1st attempt: Cost Clerk contacted patient and informed them that we have received their new patient referral and offered to schedule for the first available appointment with Dr. Edward in [place] - patient was agreeable. While holding, patient disconnected call. [facility] 06-12-2024 Telephone encounter Note 2nd attempt: Called and left patient a voicemail once more letting them know we have received their referral, are ready to schedule, and to call us back at their earliest convenience to do so. Cost Clerk provided callback number for scheduling or to address any questions or concerns they may have. [facility] 06-12-2024 Telephone encounter Note Patient has been scheduled with Dr. Edward in [place] on 12/24 [facility] 06-12-2024 History of Present illness Narrative [...] 11/20/2023 Performed by Marlon Tillman DO at [facility] ERCP N/A 11/18/2020 Performed by Mac Card MD at [facility] ERCP 10/08/[address] Valadez N/A 10/08/2020 Performed by August Valadez MD at [facility] ESOPHAGOGASTRODUODENOSCOPY 10/08/2020 Performed by August Valadez MD at [facility] ESOPHAGOGASTRODUODENOSCOPY DIAGNOSTIC N/A 11/20/2023 Performed by Marlon Tillman DO at [facility] LAPAROSCOPIC CHOLECYSTECTOMY N/A 09/26/2020 Performed by Rommel Nunez MD at [facility] LAPAROSCOPY DIAGNOSTIC N/A 11/21/2020 Performed by Rei Hernandez MD at [facility] OPEN COMMON DUCT EXPLORATION N/A 11/21/2020 Performed by Rei Hernandez MD at [facility] TUBAL LIGATION FAMILY HX Family History Problem [...] All questions answered. Educational material provided through [employer]. RTO for annual / pap (due now) and / or sooner as needed. 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 However, today she reports she is no [...] longer working. 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 She estimates having [...] chronic double vision. 11/17/2023: Evaluated by Neurology, [facility]: Problems: Right eye vision loss (2020), imbalance, [...] sugars. Her vertigo symptoms are reproducible with [place]-Hallpike maneuver but no nystagmus reproduced therefore not [...] or ophthalmology evaluation after her visit to [place], [place].] Ancillary Testing: Normal/negative labs: [facility], 2023: CBC/diff, [facility], 2023: CMP (except glucose 135 mg/dL), celiac disease panel [Gliadin Deaminidated Peptide AB IGA, IgA, Tissue Transglutaminase IgA], Brain MRI, without and with contrast, [facility], 10/28/2020: Report - Findings: Visualized facial soft [...] done. Brain MRI, without and with contrast, [facility], 02/27/2024: Report - Comparison: 10/25/2020: No evidence [...] atrophy Orbit MRI, without and with contrast, [facility], 02/27/2024: Report - Mild right globe deformation [...] nerves. Cervical MRI, without and with contrast, [facility], 02/27/2024: Report: Leftward disc protrusion at C3-4 [...] Abnormal brain MRI. *Consideration is given to PRODUCTION SUPERVISOR TRAINEE demyelination, untreated sleep apnea, microvascular changes (she has at least 3 BP readings in the last 2 months suggesting hypertension. Potential MS mimics will also be evaluated (metabolic, infectious causes of symptoms) *Stressed importance of obtaining blood work *Suggested sleep study but declined today *Stressed importance of following up with pcp regarding blood pressure Numbness *Consideration is given to b12 deficiency, PRODUCTION SUPERVISOR TRAINEE demyelination and current smoking status *Stressed importance [...] day *Smoking Cessation *Follow up with in [facility] due to transportation issues Ekaterina Villegas DNP, APRN, ENVIRONMENTAL REMEDIATION SPECIALIST-C Department of Neurology - Multiple Sclerosis AMAYA Lerner 06/04/24 0900 documented in this encounter [facility] 05-31-2024 Instructions AMAYA Lerner - 05/31/2024 2:30 PM EDT *Please obtain blood work already ordered *Recommend follow up with opthalmology *Continued follow up with pcp regarding blood pressure *Follow up with sleep medicine *Increase gabapentin to 300mg three times a day *Smoking Cessation *Follow up with in [facility] documented in this encounter [facility] 05-29-2024 Miscellaneous Notes Received a referral from Katie Flores at [facility] for irregular menstrual bleeding. Called the patient to schedule the referral appointment. The patient answered, I introduced myself & why I was calling. The patient asked if she could call us right back & hung up the phone. Patient called back and was scheduled for 06/12/24 with Gisela Cordova CNP in [place] office. documented in this encounter [facility] 05-29-2024 Telephone encounter Note Received a referral from Katie Flores at [facility] for irregular menstrual bleeding. Called the patient to schedule the referral appointment. The patient answered, I introduced myself & why I was calling. The patient asked if she could call us right back & hung up the phone. [facility] 05-29-2024 Telephone encounter Note Patient called back and was scheduled for 06/12/24 with Gisela Cordova CNP in [place] office. [facility] 05-15-2024 Miscellaneous Notes Patient's appointment needs to be rescheduled at this time due to provider out of clinic. Called and unable to leave message Date: 05/16 Provider: Alanis Villegas CNP Rescheduling Instructions: please schedule at least two weeks out due to not knowing provider's return date as of now Rescheduled 05/31/24 conrad Villegas documented in this encounter [facility] 05-15-2024 Telephone encounter Note Patient's appointment needs to be rescheduled at this time due to provider out of clinic. Called and unable to leave message Date: 05/16 Provider: Alanis Villegas CNP Rescheduling Instructions: please schedule at least two weeks out due to not knowing provider's return date as of now [facility] 05-15-2024 Telephone encounter Note Rescheduled 05/31/24 conrad Villegas [facility] 05-09-2024 Miscellaneous Notes Patient's appointment needs to be rescheduled at this time due to provider out of clinic. Called and unable to leave message - not setup Date: 09/05/24 Provider: Dr Dupont Rescheduling Instructions: next available Patient has a follow up with Alanis tomorrow, she states that will reschedule while at the clinic. documented in this encounter [facility] 05-09-2024 Telephone encounter Note Patient's appointment needs to be rescheduled at this time due to provider out of clinic. Called and unable to leave message - not setup Date: 09/05/24 Provider: Dr Dupont Rescheduling Instructions: next available [facility] 05-09-2024 Telephone encounter Note Patient has a follow up with Alanis tomorrow, she states that will reschedule while at the clinic. [facility] 11-17-2023 History of Present illness Narrative Subjective [...] Not Currently Not currently working. Lives with [facility]. Lives in [place], [place]. Feels safe at home. Not on [...] Flex 5 5 Wrist Ext 5 5 Business Services Coordinator 5 5 Thumb abd 5 5 Hip [...] hudson bilaterally. COORDINATION: In both upper extremities, [id number]-htdy-mfozsy was intact without dysmetria or overshoot. In both lower extremities, fjno-rn-[id number] was intact. On rapid alternating movements, movements were slow but no freezing or decrement. THERESA-HALLPIKE: Used Frenzel goggles and was able to [...] seen and evaluated the patient with Dr. Cameorn, I agree with the assessment and plan, which were formulated with my direct input. Advised patient to go to the ER if worsening breathing. documented in this encounter [facility] Work Phone: 11-17-2023 Instructions Maribell Cameron MD [...] clinic. We wish you all the mansi, [facility] Neurology Team The following attachments cannot be sent through Care Everywhere.Peripheral Neuropathy (Nauruan)documented in this encounter [facility] Work Phone: 10-10-2023 Miscellaneous Notes Called Raya regarding the hemorrhoid referral that our office received from Seven Bowden NP, I was unable to leave a message as the voicemail box has not been set up yet. Raya called the office back and we scheduled her an appointment on 11/01/2023. documented in this encounter [facility] 10-10-2023 Telephone encounter Note Called Raya regarding the hemorrhoid referral that our office received from Seven Bowden NP, I was unable to leave a message as the voicemail box has not been set up yet. [facility] 10-10-2023 Telephone encounter Note Raya called the office back and we scheduled her an appointment on 11/01/2023. [facility] Evaluation note Diagnosis Polyneuropathy- Primary Unspecified hereditary and idiopathic peripheral neuropathy Vertigo Dizziness and giddiness Balance problem Abnormality of gait Cataract of right eye, unspecified cataract type Multiple sclerosis (Multi) Multiple sclerosis documented in this encounter [facility] Work Phone: Evaluation note* Diagnosis RUQ abdominal pain Abdominal pain, right upper quadrant documented [facility] Diagnosis Numbness- Primary Disturbance of skin sensation Abnormal brain MRI Nonspecific (abnormal) findings on radiological and other examination of skull and head Primary hypertension Unspecified essential hypertension Smoking addiction [facility]* Diagnosis Abnormal uterine bleeding (AUB)- Primary Vaginal lesion Other specified noninflammatory disorder of vagina [facility]* Diagnosis Well woman exam with routine gynecological exam- Primary Routine gynecological examination Cervical smear, as part of routine gynecological examination Screening for malignant neoplasm of the cervix Standardized adult depression screening tool completed Anxiety and depression [facility]* Diagnosis DUB (dysfunctional uterine bleeding)- Primary Other disorder of menstruation and other abnormal bleeding from female genital tract Dysmenorrhea [facility]* Diagnosis DUB (dysfunctional uterine bleeding)- Primary Other disorder of menstruation and other abnormal bleeding from female genital tract documented in this encounter [facility] SystemInstructionsNot on filedocumented in this encounter [facility] SystemInstructionsNot on filedocumented in this encounter [facility] SystemInstructionsNot on filedocumented in this encounter [facility] SystemInstructions* Attachments The following attachments cannot be sent through Care Everywhere. * Hysterectomy (Nauruan) * Quitting smoking (Nauruan) [facility] in [facility] SystemInstructionsNot on file [facility] SystemInst[facility]* Attachments The following attachments cannot be sent through Care Everywhere. * Quitting smoking (Nauruan) * Bleeding Between Periods (Nauruan) documented in this encounterPro[facility] SystemInstructionsNot on file documented in this encounterProSelect [facility] SystemInstructionsNot on file documented in this encounterProSelect Medical [facility] SystemInstructionsNot on file documented in this encounterOhio[facility] SystemReason for referral (narrative)* Consultation (Routine) - Authorized Specialty Diagnoses / Procedures Referred By Tara short Referred To Contact Ophthalmology Diagnoses Cataract of right eye, unspecified cataract type Yojana Phan [place] PhD [id number] Department of Neurology [place] [id number] Referral ID Status Reason Start Date Expiration Date Visits Requested Visits Authorized [id number] Authorized Specialty Services Required 11/17/2023 11/16/2024 1 1 * Medications - Pending Review Specialty Diagnoses / Procedures Referred By Tara short Referred To Contact Diagnoses [place] [id number] [address] Department of Neurology/[place] [address] Referral ID Status Reason Start Date Expiration Date V isits Requested Visits Authorized [id number] Pending Review 1 1 * Imaging (Routine) - Pending Review Specialty Diagnoses / Procedures Referred By Tara short Referred To Contact Radiology Diagnoses Polyneuropathy Vertigo Balance problem Procedures MR brain w and wo IV contrast Yojana Phan MD PhD [id number] Department of Neurology [place] [phone] Referral ID Status Reason Start Date Expiration Date Visits Requested Visits Authorized [id number] Pending Review Perform Procedure 11/17/2023 11/16/2024 1 1 [facility] Work Phone: Summary Purpose Family History No [...] pain Procedures US ABDOMEN LIMITED Adeline Florentino, STARCH DUMPER - SUPERVISOR STEEL DIVISION [address] [address] Referral ID Status Reason Start Date Expiration Date Visits Re quested Visits Authorized [id number] Open 12/26/2023 12/25/2024 1 1 Additional Source Comments INFORMATION SOURCE (unrecogn ized section and content) DATE CREATED AUTHOR 02/17/2022 [facility] Selina nter DATE CREATED AUTHOR AUTHOR'S ORGANIZ ATION 11/21/2023 [facility] DATE CREATED AUTHOR AUTHOR'S ORGANIZ ATION 01/27/2024 Marilee Celeste [facility] DATE CREATED AUTHOR AUTHOR'S ORGANIZ ATION 06/15/[address] [facility] DATE CREATED AUTHOR AUTHOR'S ORGANIZ ATION 07/27/[address] [facility] DATE CREATED AUTHOR AUTHOR'S ORGANIZ ATION 08/01/2024 [facility] Care Teams (unrecognized sec tion and content) Bolt Sorter Relationship Specialty Start Date End Date Seven Bowden STARCH DUMPER-ENVIRONMENTAL REMEDIATION SPECIALIST [address] [place], [place] [phone] PCP - General Family Medicine 10/09/23 Bolt Sorter Relationship Specialty Start Date End Date Seven Bowden STARCH DUMPER - HIGH SCHOOL LIBRARY MEDIA SPECIALIST [address] [place] [address] PCP - General Nurse Practitioner 12/26/23 Bolt Sorter Relationship Specialty Start Date End Date Seven Bodwen STARCH DUMPER-ENVIRONMENTAL REMEDIATION SPECIALIST [address] [place] [address] PCP - General Family Medicine 10/09/23 Bolt Sorter Relationship Specialty Start Date End Date Seven Bowden STARCH DUMPER-ENVIRONMENTAL REMEDIATION SPECIALIST [address] [place] [address] PCP - General Family Medicine 10/09/23 Bolt Sorter Relationship Specialty Start Date End Date Seven Bowden STARCH DUMPER-ENVIRONMENTAL REMEDIATION SPECIALIST [address] [place] [address] PCP - General Family Medicine 10/09/23 Bolt Sorter Relationship Specialty Start Date End Date Seven Bowden STARCH DUMPER-ENVIRONMENTAL REMEDIATION SPECIALIST [address] [place], [place] [phone] PCP - General Family Medicine 10/09/23 Bolt Sorter Relationship Specialty Start Date End Date Seven Bowden STARCH DUMPER-ENVIRONMENTAL REMEDIATION SPECIALIST [address] [place] [address] PCP - General Family Medicine 10/09/23 Bolt Sorter Relationship Specialty Start Date End Date Seven Bowden APRN-ENVIRONMENTAL REMEDIATION SPECIALIST [address] [place] [phone] PCP - General Family Medicine 10/09/23 Bolt Sorter Relationship Specialty Start Date End Date Seven Bowden STARCH DUMPER-ENVIRONMENTAL REMEDIATION SPECIALIST [address] [place] [phone] PCP - General Family Medicine 10/09/23 Bolt Sorter Relationship Specialty Start Date End Date Seven Bowden APRN-ENVIRONMENTAL REMEDIATION SPECIALIST [address] [place] [phone] PCP - General Family Medicine 10/09/23 Reason for Visit (unrecogniz ed section and content) Reason Comments Consult MULTIPLE SCLEROSIS Specialty Diagnoses / Procedures Referred By Tara short Referred To Contact Radiology Diagnoses RUQ abdominal pain Procedures US ABDOMEN LIMITED Adeline Florentino, STARCH DUMPER - SUPERVISOR STEEL DIVISION [address] [address] Referral ID Status Reason Start Date Expiration Date Visits Re quested Visits Authorized [id number] Open 12/26/2023 12/25/2024 1 1 Reason Onset [...] BE BASED ON THE PRIMARY CLINICAL RECORDS. [facility] Your Image by [employer] [facility]. provides no warranty or guarantee of the accuracy or completeness of information in this document.
[2024-08-12 07:30] VITALS: BP 168/92; PULSE 104; TEMP 36.8; O2SAT 97; BMI 45.5
--- NOTE | 2024-08-12 07:44 | ED.DENTAL1 ---
HPI - Dental/Oral General Chief complaint: Dental/Oral Stated complaint: dental pain Time Seen by Provider: 08/12/24 07:23 Source: patient Mode of arrival: walk-in Limitations: no limitations History of Present Illness HPI Narrative: 44-year-old female presents to the emergency department for toothache. She is scheduled to have tooth teeth extracted tomorrow. She was seen here last night given Toradol and topical dental analgesia. The pain is continuous and throbbing and mostly on the right side Related Data Home Medications ?Medication ?Instructions ?Recorded ?Confirmed famotidine 20 mg tablet 20 mg PO DAILY 08/08/24 08/12/24 metformin 500 mg tablet,extended 500 mg PO DAILY 08/08/24 08/12/24 release 24 hr omeprazole 40 mg capsule,delayed 40 mg PO BID 08/08/24 08/12/24 release Previous Rx's ?Medication ?Instructions ?Recorded esomeprazole magnesium 40 mg 40 mg PO DAILY 28 days #28 caps 06/12/23 capsule,delayed release (Nexium) dicyclomine 20 mg tablet 20 mg PO QID PRN abdominal pain 07/10/23 #12 tabs penicillin V potassium 500 mg 500 mg PO Q6H 7 days #28 tabs 08/08/24 tablet oxycodone-acetaminophen 5 mg-325 1 tab PO Q6H PRN pain #10 tabs 08/12/24 mg tablet (Percocet) Allergies Allergy/AdvReac Type Severity Reaction Status Date / Time promethazine (From Phenergan) Allergy Severe Confusion Verified 08/12/24 07:29 Review of Systems ROS Narrative A ten point review of systems is negative except as noted above. PFSH PFSH Social History Smoking status: Current every day smoker Little interest or pleasure in doing things: not at all Feeling down, depressed, or hopeless: not at all Exam Narrative Exam Narrative: Nurses note and vital signs reviewed and patient is not hypoxic. General: The patient appears in no apparent distress. Patient is rocking on the bed and holding the right side of her face. Skin: Warm, dry, no pallor noted. There is no rash noted. Head: Normocephalic, atraumatic Eye: Normal conjunctiva, no drainage Ears, Nose, Mouth, and Throat: oral mucosa is moist. Nares patent. No facial swelling or erythema. No swelling to the floor of her mouth. She is handling oral secretions well. Dental caries noted in the right lower dentition, tooth #30. No bleeding or pus present Cardiovascular: Regular Rate and Rhythm Respiratory: Patient is in no distress, no accessory muscle use Back: non-tender GI: Soft and nontender Musculoskeletal: The patient has no evidence of calf tenderness, no pitting edema, symmetrical pulses noted bilaterally Neurological: A&O, normal speech Psychiatric: Cooperative Constitutional Vital Signs, click to edit/add: Last Vital Signs Temp 98.3 F 08/12/24 07:30 Pulse 104 H 08/12/24 07:30 Resp 20 08/12/24 07:30 BP 168/92 H 08/12/24 07:30 Pulse Ox 97 08/12/24 07:30 Course Vital Signs Vital signs: Vital Signs Temperature 98.3 F 08/12/24 07:30 Pulse Rate 104 H 08/12/24 07:30 Respiratory Rate 20 08/12/24 07:30 Blood Pressure 168/92 H 08/12/24 07:30 Pulse Oximetry 97 08/12/24 07:30 Temperature 98.3 F 08/12/24 07:30 Pulse Rate 104 H 08/12/24 07:30 Respiratory Rate 20 08/12/24 07:30 Blood Pressure 168/92 H 08/12/24 07:30 Pulse Oximetry 97 08/12/24 07:30 MDM - Dental/Oral MDM Narrative Medical decision making narrative: She was given a Percocet here and prescribed 10 Percocet and will have 2 teeth extracted tomorrow as scheduled. Treatment diagnosis and follow-up were discussed with the patient. Differential Diagnosis Differential diagnosis: Likely gingival abscess, dental caries, toothache and dental abscess Medical Records Attestation: I reviewed the patient's medical records. Discharge Plan Discharge Chief Complaint: Dental/Oral Clinical Impression: Toothache, Dental caries Patient Disposition: Home, Self-Care Time of Disposition Decision: 07:42 Condition: Good Mode of Transportation: Private Vehicle Prescriptions / Home Meds: New oxycodone-acetaminophen [Percocet] 5-325 mg tablet 1 tab PO Q6H PRN (Reason: pain) Qty: 10 0RF No Action dicyclomine 20 mg tablet 20 mg PO QID PRN (Reason: abdominal pain) Qty: 12 0RF esomeprazole magnesium [Nexium] 40 mg capsule,delayed release(DR/EC) 40 mg PO DAILY 28 Days Qty: 28 0RF metformin 500 mg tablet extended release 24 hr 500 mg PO DAILY famotidine 20 mg tablet 20 mg PO DAILY omeprazole 40 mg capsule,delayed release(DR/EC) 40 mg PO BID penicillin V potassium 500 mg tablet 500 mg PO Q6H 7 Days Qty: 28 0RF Print Language: Portuguese Instructions: Toothache (ED) Referrals: Akilah Bowden EXHA[employer] EMISSIONS INSPECTOR [Primary Care Provider] - 1 week
[2024-08-12] MEDS: OXYCODONE HCL/ACETAMINOPHEN 5MG/325MG 1 TAB PO (07:56)
== END 2024-08-12 08:03 | disposition home or self-care (01) ==
PROVIDERS: Emergency Provider Emergency Medicine; PCP Nurse Practitioner
DX: K02.9 Dental caries, unspecified (principal); K08.89 Other specified disorders of teeth and supporting structures; F17.200 Nicotine dependence, unspecified, uncomplicated
CPT/HCPCS: 99283

== ENCOUNTER 2024-10-20 16:21 | Emergency (ER) | payer OTHER, SELFPAY ==
[2024-10-20 16:25] VITALS: BP 134/100; PULSE 96; TEMP 36.5; O2SAT 99; BMI 45.7
--- OUTSIDE RECORDS SUMMARY | 2024-10-20 16:37 | XMS_ITS | CCD ---
Author Organization [facility] Care Team Providers Care [address] [employer] Name Role Phone Unavailable Primary Care Provider UnavailYOJANA Moran Attending Unavailable Cinthya NUCLEAR MEDICAL TECH - CAGE SUPERVISOR, [place] Primary Care Provider ADELINE FLORENTINO Referring Unavailable CINTHYA, SEVEN Primary Care Unavailable ADELINE FLORENTINO Referring Unavailable CINTHYA, SEVEN Primary Care Unavailable ADELINE FLORENTINO Referring Unavailable CINTHYA, SEVEN Primary Care Unavailable GISELA CORDOVA Referring Unavailable CINTHYA, SEVEN Primary Care Unavailable Cinthya NUCLEAR MEDICAL TECH-TRAINING DEVELOPMENT SPECIALIST, [place] Primary Care Provider [phone] THAIS MARLEY Attending Unavailable CINTHYA, SEVEN Referring Unavailable CINTHYA, SEVEN Primary Care Unavailable OFELIA TERRAZAS Attending Unavailable CINTHYA, SEVEN Referring Unavailable CINTHYA, SEVEN Primary Care Unavailable ANDRES DUPONT Attending Unavailable CINTHYA, SEVEN Referring Unavailable CINTHYA, SEVEN Primary Care Unavailable CHAPARRITA BROWN Attending Unavailable CINTHYA, SEVEN Referring Unavailable CINTHYA, [...] TILLMAN Admitting Unavailable MARLON TILLMAN Attending Unavailable GES, MAROLN Referring Unavailable CINTHYA, SVEEN Primary Care Unavailable MARLON TILLMAN Attending Unavailable GES, MARLON Referring Unavailable CINTHYA, SEVEN Primary Care Unavailable LILY SNELL Attending Unavail able CINTHYA, SEVEN Primary Care Unavailable KOFI TERRAZASNA M Attending Unavailable KOFI TERRAZASNA M Referring Unavailable CINTHYA, SEVEN Primary Care Unavailable NINIOFELIA M Attending Unavailable NINI, OFELIA M Referring Unavailable CINTHYA, SEVEN Primary Care Unavailable CINTHYA, SEVEN Referring Unavailable CINTHYA, SEVEN Primary Care Unavailable CINTHYA, SEVEN Primary Care Unavailable LIUDMILA GARCIA Attending Unavailable CHARLIE YOUNG Attending Unavailable CHARLIE YOUNG Referring Unavailable CINTHYA, SEVEN Primary Care Unavailable CINTHYA, SEVEN Primary Care Unavailable VANEDEANGIE E Attending Unavailable CHEHADEANGIE E Attending Unavailable CHEHADE, ANGIE E Referring Unavailable CINTHYA, SEVEN Primary Care Unavailable CHEHADE ANGIE E Attending Unavailable CHEHADE, ANGIE E Referring Unavailable CINTHYA, SEVEN Primary Care Unavailable ANDRES DUPONT Referring Unavailable CINTHYA, SEVEN Primary Care Unavailable ANDRES DUPONT Referring Unavailable CINTHYA, SEVEN Primary Care Unavailable CINTHYA, SEVEN Referring Unavailable CINTHYA, SEVEN Primary Care Unavailable CINTHYA, SEVEN Referring Unavailable CINTHYA, SEVEN Primary Care Unavailable CHAPARRITA BROWN Referring Unavailable CINTHYA, SEVEN Primary Care Unavailable MALLORY GISELA M Referring Unavailable CINTHYA, SEVEN Primary Care Unavailable CINTHYA, SEVEN Primary Care Unavailable SUSHILA CHOW Attending Unavailable MALLORY GISELA Kristen Attending Unavailable MALLORY, GISELA M Referring Unavailable CINTHYA, SEVEN Primary Care Unavailable DIANNA, ELVI Referring Unavailable CINTHYA, SEVEN Primary Care Unavailable DIANNA, ELVI Referring Unavailable CINTHYA, SEVEN Primary Care Unavailable CINTHYA, SEVEN Referring Unavailable CINTHYA, SEVEN Primary Care Unavailable ALLISON BETANCOURT Referring Unavailable CINTHYA, SEVEN Primary Care Unavailable ALLISON BETANCOURT Attending Unavailable ALLISON BETANCOURT Referring Unavailable CINTHYA, SEVEN Primary Care Unavailable DIANNA, ELVI Admitting Unavailable DIANNA, ELVI Attending Unavailable CINTHYA, SEVEN Primary Care Unavailable ALLISON BETANCOURT Attending Unavailable CINTHYA, SEVEN Primary Care Unavailable SHAMEKA WATKINS Referring Unavailable CINTHYA, SEVEN Primary Care Unavailable Allergies Allergy Classification Reported Allergen(s) Allergy Type Date of Onset Reaction(s) Facility (9 sources) Promethazine; Translations: [PROMETHAZINE] Drug Allergy 03-26-2020 Other [facility] Work Phone: Medications Current Medications Medication Drug Class(es) Dates Sig (Normalized) Sig (Original) [id number] 200 actuat albuterol 0.09 mg/actuat metered dose inhaler (6 sources) beta2-Adrenergic Agonist Start: 12-15-2023 take 2 [...] hours if needed for wheezing. 08/07/2022 Active bisacodyl 5 mg delayed release oral tablet (1 source) Stimulant Laxative Start: 11-01-2023 BISACODYL 5 MG EC tablet TAKE DIRECTED ON INSTRUCTIONAL SHEET FROM DOCTOR 0 11/01/2023 Active diazePAM 5 mg oral tablet (4 sources) Benzodiazepine Start: 01-26-2024 diazePAM (VALIUM) 5 mg tablet Indications: Claustrophobia One tab 30 minutes before MRI; may repeat up to 2 times for remaining MRI studies. Do not drive after use. 3 tablet 01/26/2024 Active famotidine 20 mg oral tablet (5 sources) Histamine-2 Receptor Antagonist Start: 12-26-2023 famotidine (PEPCID) 20 mg tablet Take 1 tablet (20 mg total) by mouth. 12/26/2023 Active ferrous sulfate 325 mg oral tablet (2 sources) take 1 tablet by mouth once daily at breakfast ferrous sulfate (IRON 325) 325 (65 Fe) MG tablet Take 1 tablet by mouth daily (with breakfast) 0 Active 60 actuat formoterol fumarate 0.005 mg/actuat / mometasone furoate 0.2 mg/actuat metered dose inhaler (5 sources) Corticosteroid, beta2-Adrenergic Agonist Start: 12-14-2023 take [...] EVERY NIGHT AT BEDTIME 0 12/14/2023 Active gabapentin 100 mg oral capsule (2 sources) Anti-epileptic Agent Start: 11-17-2023 End: 12-07-2024 gabapentin (NEURONTIN) 100 MG capsule mineral oil 0.14 mg/mg / petrolatum 0.749 mg/mg / phenylephrine hydrochloride 0.0025 mg/mg rectal ointment (6 sources) alpha-1 Adrenergic Agonist Start: 10-09-2023 PREPARATION H 0.25-14-74.9 % ointment Insert 1 Application into the rectum every 6 (six) hours as needed. 10/09/2023 Active Start: 10-09-2023 PREPARATION H 0.25-14-74.9 % rectal ointment APPLY RECTALLY DIRECTED TWICE DAILY NEEDED 0 10/09/2023 Active omeprazole 40 mg delayed release oral capsule (6 sources) Proton Pump Inhibitor Start: 11-29-2023 take [...] 10/19/2023 Active ondansetron 8 mg oral tablet (4 sources) Serotonin-3 Receptor Antagonist take 1 tablet [...] before meals. 11/21/2022 Active polyethylene glycol 3350 64587 mg powder for oral solution (2 sources) Osmotic Laxative Start: 10-09-19 polyethylene glycol (GLYCOLAX) 17 GM/SCOOP powder PROCHAMBER spacer (4 sources) Start: 12-14-19 PROCHAMBER spacer USE DIRECTED WITH INHALER 12/14/2023 Active psyllium 400 mg oral capsule (6 sources) Start: 11-02-19 REGULOID, PSYLLIUM HUSK, 0.4 [...] mouth once daily. 11/01/2023 Active Spacer/Aero-Holding Chambers ([facility]) BANG (1 source) Start: 12-14-2023 Spacer/Aero-Holding Chambers ([facility]) BANG USE DIRECTED WITH INHALER 0 12/14/2023 Active 7 actuat umeclidinium 0.0625 mg/actuat dry powder inhaler (5 sources) Anticholinergic Start: 12-14-2023 take 1 puff(s) by inhalation in the morning umeclidinium (INCRUSE ELLIPTA) 62.5 mcg/actuation blister with device Indications: Moderate persistent asthma without complication Inhale 1 puff in the morning. 30 each 12/14/2023 Active Start: 12-14-2023 take 1 puff(s) by mo uth in the morning INCRUSE ELLIPTA 62.5 MCG/ACT inhaler INHALE 1 PUFF BY MOUTH IN THE MORNING 0 12/14/2023 Active Problems Active Problems Problem Classification Problem Date Documented Da te Episodic/Chronic Anxiety disorders (1 source) Claustrophobia; Translations: [Claustrophobia] Onset: 4 Chronic Asthma (4 sources) Asthma; Translations: [Unspecified asthma, uncomplicated] Onset: 4 08-29-2024 Chronic Cataract (3 sources) Cataract of right eye; Translations: [Unspecified cataract] Onset: 4 11-17-2023 Chronic Conditions associated with dizziness or vertigo (3 sources) Vertigo; Translations: [Dizziness and giddiness] Onset: 4 11-17-2023 Episodic Esophageal disorders (2 sources) Gastroesophageal reflux disease without esophagitis; Translations: [Gastro-esophageal reflux disease without esophagitis] Onset: 4 11-17-2023 Chronic Gastritis and duodenitis (1 source) Chronic superficial gastritis without bleeding; Translations: [Chronic superficial gastritis without bleeding] Onset: 4 Chronic Headache; including migraine (1 source) Other migraine, not intractable, without status migrainosus; Translations: [Other migraine, not intractable, without status migrainosus] Onset: 4 Chronic Headache; including migraine (1 source) Headache; including migraine Onset: 4 Multiple sclerosis (3 sources) Multiple sclerosis; Translations: [Multiple sclerosis] Onset: 4 11-17-2023 Chronic Other female genital disorders (2 sources) Abnormal uterine bleeding; Translations: [Other specified abnormal uterine and vaginal bleeding] 07-30-2024 Chronic Other female genital disorders (2 sources) Other specified abnormal uterine and vaginal bleeding; Translations: [Other specified abnormal uterine and vaginal bleeding] Onset: 4 Chronic Other female genital disorders (2 sources) Abnormal uterine and vaginal bleeding, unspecified; Translations: [Abnormal uterine and vaginal bleeding, unspecified] Onset: 4 Chronic Other gastrointestinal disorders (1 source) Diarrhea, unspecified; Translations: [Diarrhea, unspecified] Onset: 4 Episodic Other gastrointestinal disorders (1 source) Personal history of other diseases of the digestive system; Translations: [Personal history of other diseases of the digestive system] Onset: 4 Episodic Other liver diseases (1 source) Fatty (change of) liver, not elsewhere classified; Translations: [Fatty (change of) liver, not elsewhere classified] Onset: 5 Chronic Other nervous system disorders (1 source) Polyneuropathy; [...] gait and mobility] Onset: 4 Episodic Other nutritional; endocrine; and metabolic disorders (5 sources) Body mass index 40+ - severely obese; Translations: [Morbid (severe) obesity due to excess calories] Onset: 4 06-19-2024 Chronic Other nutritional; endocrine; and metabolic disorders (1 source) Body mass index (BMI) 45.0-49.9, adult; Translations: [Body mass index (BMI) 45.0-49.9, adult] Onset: 5 Chronic Other nutritional; endocrine; and metabolic disorders (1 source) Morbid (severe) obesity due to excess calories; Translations: [Morbid (severe) obesity due to excess calories] Onset: 4 Chronic Residual codes; unclassified (1 source) Obstructive sleep apnea (adult) (pediatric); Translations: [Obstructive sleep apnea (adult) (pediatric)] Onset: 4 Chronic Unclassified (1 source) Post-op Onset: 5 Unclassified (1 source) EMB/Endosee Onset: 4 Unclassified (1 source) Gynecologic Exam Onset: 4 Unclassified (1 source) Menstrual Problem Onset: 4 Unclassified (1 source) New Patient Onset: 4 Unclassified (1 source) Esophagitis, unspecified without bleeding; Translations: [Esophagitis, unspecified without bleeding] Onset: 4 Unclassified (1 source) GERD/Rectal bleed Onset: Past or Other Problems Problem Classification Problem Date Documented Da te Episodic/Chronic Abdominal pain (14 sources) Intractable abdominal pain; Translations: [Unspecified abdominal pain] Onset: 10-21-2020 11-17-2023 Episodic Acute bronchitis (2 sources) Acute bronchitis, unspecified; Translations: [Acute bronchitis, unspecified] Onset: 12-14-2023 Episodic Biliary tract disease (18 sources) Common bile duct calculus; Translations: [Calculus of bile duct without cholangitis or cholecystitis without obstruction] Onset: 09-26-2020 11-17-2023 Episodic Gastrointestinal hemorrhage (2 sources) Hemorrhage of rectum and anus; Translations: [Hemorrhage of anus and rectum] Onset: 11-01-2023 11-17-2023 Episodic Hemorrhoids (3 sources) Hemorrhoids; Translations: [Unspecified hemorrhoids] Onset: 11-01-2023 11-17-2023 Episodic Mood disorders (4 sources) Mood disorders Onset: 06-19-2024 06-19-2024 Nausea and vomiting (1 source) Nausea with vomiting, unspecified; Translations: [Nausea with vomiting, unspecified] Onset: 06-21-2024 Episodic Nonmalignant breast conditions (1 source) Mastodynia; Translations: [Mastodynia] Onset: 03-05-2024 Episodic Other and unspecified benign neoplasm (1 source) Polyp of colon; Translations: [Polyp of colon] Onset: 11-20-2023 Episodic Other female genital disorders (2 sources) Other specified noninflammatory disorders of vagina; Translations: [Other specified noninflammatory disorders of vagina] Onset: 06-12-2024 Episodic Other gastrointestinal disorders (1 source) Change [...] Shortness of breath Onset: 12-14-2023 Episodic Other nervous system disorders (2 sources) Anesthesia of skin; Translations: [Anesthesia of skin] Onset: 05-31-2024 Episodic Other screening for suspected conditions (not mental disorders or infectious disease) (4 sources) Other abnormal findings on diagnostic imaging of central nervous system; Translations: [Encounter for screening for cardiovascular disorders] Onset: 12-13-2023 Episodic Pancreatic disorders (not diabetes) (5 sources) Pancreatitis; Translations: [Acute pancreatitis without necrosis or infection, unspecified] Onset: 10-09-2020 11-17-2023 Episodic Screening and history of mental health and substance abuse codes (1 source) Encounter for screening for depression; Translations: [Encounter for screening for depression] Onset: 06-19-2024 Episodic Substance-related disorders (4 sources) Opioid withdrawal; Translations: [Opioid use, unspecified with withdrawal] Onset: 11-15-2020 11-15-2020 Episodic Unclassified (4 sources) Onset: 06-19-2024 06-19-2024 Results Test Name Value Interpretation Reference Range Facility Surgical Pathology[facility] 025 Surgical Pathology Normal [facility] Comment on above: Result Comment: [facility] [facility] [employer] [facility] [address] [place] [address] Surgical Pathology Consultation Patient Name:RAYA GONZALES:1980 (Age: 44)Gender:FTaken:09/09/2024Reported:09/17/2024Physician(s):Elvi Chapman M.D. ([phone])Copy To: Rec. #:[id number]: #[id number] Final Pathologic Diagnosis 1. Endocervix, curettage: Unremarkable endocervical epithelium. 2. Endometrium, curettage: Proliferative endometrium. Report Electronically Signed Out 09/17/2024Miguel Carney MD Interpretation [place] [address], License number: [id number]. Clinical History Heavy periods. Gross Description 1. Received in formalin labeledVINNY ECC is a pale mucoid material mixed with robles friable soft tissue bits, 0.7 x 0.4 x 0.1 cm in aggregate. The specimens are filtered and submitted in single cassette. (1, ns, [id number], m1) TB 2. Received in formalin labeled, KAYLYNN GONZALES are robles delicate to friable soft tissue bits admixed with brown hemorrhagic material and scant brown mucoid material, 2.5 x 2 x 0.3 cm in aggregate. The specimens are filtered and submitted in single cassette. Fixation Time: Tissue removed from patient: 1410 Time specimen placed in formalin: 1410 Cold ischemic time: Less than 1 minute Total fixation time: 28.5 hours (1, ns, [id number], m1) TB tgb/09/10/2024NSK Specimen(s) Received 1: Endocervical curettings 2: Endometrial curettings Fee Codes(s): 1; 98996 2; 73662 BASIC METABOLIC PANLon 09-03 Anion gap [Moles/Vol] 6 mmol/L Normal 5-15 [facility] Comment on above: Performed By: #### C STEVEN [facility], 07036-2, THYR #### [facility] ([id number]) [address], [address] [place] [address] Calcium [Mass/Vol] 8.8 mg/dL Normal 8.5-10.5 [facility] Comment on above: Performed By: #### Gino HARRIS [facility], 02852-4, THYR #### [facility] ([id number]) [address], [address] [place] [address] Chloride [Moles/Vol] 104 mmol/L Normal 98-109 [facility] Comment on above: Performed By: #### Gino HARRIS [facility], 48506-5, THYR #### [facility] ([id number]) [address], [address] [place] [address] CO2 [Moles/Vol] 28 mmol/L Normal 22-32 [facility] Comment on above: Performed By: #### Gino HARRIS CMP, 08105-8, THYR #### [facility] ([id number]) [address], [address] [place] [address] Creatinine [Mass/Vol] 0.86 mg/dL Normal 0.40-1.00 [facility] Comment on above: Result Comment: METH OD TRACEABLE TO IDMS STANDARD Performed By: #### Gino HARRIS CMP, 44516-8, THYR #### [facility] ([id number]) [address], [address] [place] [address] GFR/1.73 sq M.predicted among non-blacks MDRD (S/P/Bld) [Vol rate/Area] 86 mL/min/{1.73_m2} Normal >59 [facility] Comment on above: Result Comment: Reported eGFR is based on the CKD-EPI 2020 equation that does not use a race coefficient. Performed By: #### Gino HARRIS CMP, 59373-6, THYR #### [facility] ([id number]) [address], [address] [place] [address] Glucose [Mass/Vol] 124 mg/dL High 65-99 [facility] Comment on above: Performed By: #### Gino HARRIS CMP, 16565-3, THYR #### [facility] ([id number]) [address], [address] [place] [address] Potassium [Moles/Vol] 4.2 mmol/L Normal 3.5-5.0 [facility] Comment on above: Performed By: #### Gino HARRIS CMP, 96702-8, THYR #### [facility] ([id number]) [address], [address] [place] [address] Sodium [Moles/Vol] 138 mmol/L Normal 134-146 [facility] Comment on above: Performed By: #### Gino HARRIS CMP, 54147-0, THYR #### [facility] ([id number]) [address], [address] [place] [address] Urea nitrogen [Mass/Vol] 9 mg/dL Normal 5-23 [facility] Comment on above: Performed By: #### Gino HARRIS CMP, 34393-9, THYR #### [facility] ([id number]) [address], [address] [place] [address] CBC AND AUTO DIFFon 09-03-19 25 ABSOLUTE BASOPHIL 0.0 X10E9/L Normal 0.0-0.2 [facility] Comment on above: Performed By: #### Gino HARRIS CMP, 13577-7, THYR #### [facility] ([id number]) [address], [address] [place] [address] ABSOLUTE NEUTROPHIL 4.1 X10E9/L Normal 1.5-6.6 [facility] Comment on above: Performed By: #### Gino HARRIS [facility], 09578-4, THYR #### [facility] ([id number]) [address], [address] [place] [address] Basophils/100 WBC (Bld) 0.5 % Normal [facility] Comment on above: Performed By: #### Gino HARRIS [facility], 02920-8, THYR #### [facility] ([id number]) [address], [address] [place] [address] Eosinophils (Bld) [#/Vol] 0.2 10*3/uL Normal 0.0-0.4 [facility] Comment on above: Performed By: #### Gino HARRIS CMP, 33567-1, THYR #### [facility] ([id number]) [address], [address] [place] [address] Eosinophils/100 WBC (Bld) 2.6 % Normal [facility] Comment on above: Performed By: #### Gino BC, CMP, 79130-0, THYR #### [facility] ([id number]) [address], [address] [place] [address] Erythrocyte distribution width (RBC) [Ratio] 18.8 % High 11.5-15.0 [facility] Comment on above: Performed By: #### Gino HARRIS, CMP, 52907-0, THYR #### [facility] ([id number]) [address], [address] [place] [address] Hematocrit (Bld) [Volume fraction] 39.6 % Normal 35-47 [facility] Comment on above: Performed By: #### Gino HARRIS CMP, 53163-3, THYR #### [facility] ([id number]) [address], [address] [place] [address] Hemoglobin (Bld) [Mass/Vol] 12.3 g/dL Normal 11.7-15.5 [facility] Comment on above: Performed By: #### Gino HARRIS CMP, 47375-1, THYR #### [facility] ([id number]) [address], [facility] [address] [place] [address] Lymphocytes (Bld) [#/Vol] 1.6 10*3/uL Normal 1.0-3.5 [facility] Comment on above: Performed By: #### Gino HARRIS CMP, 33813-2, THYR #### [facility] ([id number]) [address], [address] [place] [address] Lymphocytes/100 WBC (Bld) 25.1 % Normal [facility] Comment on above: Performed By: #### Gino HARRIS CMP, 78960-0, THYR #### [facility] ([id number]) [address], [address] [place] [address] MCH (RBC) [Entitic mass] 23.4 pg Low 27-34 [facility] Comment on above: Performed By: #### Gino HARRIS CMP, 88878-3, THYR #### [facility] ([id number]) [address], [address] [place] [address] MCHC (RBC) [Mass/Vol] 31.0 g/dL Low 32-36 [facility] Comment on above: Performed By: #### C BC, CMP, 70021-7, THYR #### [facility] ([id number]) [address], [address] [place] [address] MCV (RBC) [Entitic vol] 76 fL Low 80-100 [facility] Comment on above: Performed By: #### Gino BC, CMP, 22414-8, THYR #### [facility] ([id number]) [address], [address] [place] [address] Monocytes (Bld) [#/Vol] 0.4 10*3/uL Normal 0-0.9 [facility] Comment on above: Performed By: #### Gino BC, CMP, 33319-3, THYR #### [facility] ([id number]) [address], [address] [place] [address] Monocytes/100 WBC (Bld) 5.9 % Normal [facility] Comment on above: Performed By: #### Gino BC, CMP, 80003-7, THYR #### [facility] ([id number]) [address], [address] [place] [address] Neutrophils/100 WBC (Bld) 65.9 % Normal [facility] Comment on above: Performed By: #### Gino BC, CMP, 44691-3, THYR #### [facility] ([id number]) [address], [address] [place] [address] Platelet mean volume (Bld) [Entitic vol] 8.2 fL Normal 7-12 [facility] Comment on above: Performed By: #### C BC, CMP, 46246-0, THYR #### [facility] ([id number]) [address], [address] [place] [address] Platelets (Bld) [#/Vol] 358 10*3/uL Normal 150-450 [facility] Comment on above: Performed By: #### C BC, CMP, 13783-1, THYR #### [facility] ([id number]) [address], [address] [place] [address] RBC COUNT 5.25 X10E12/L High 3.80-5.20 [facility] Comment on above: Performed By: #### C BC, [facility], 75400-8, THYR #### [facility] ([id number]) [address], [address] [place] [address] WBC (Bld) [#/Vol] 6.3 10*3/uL Normal 4.0-11.0 [facility] Comment on above: Performed By: #### C BC, [facility], 91995-0, THYR #### [facility] ([id number]) [address], [address] [place] [address] XR Chest PA and Lateralon Azael Garibay M D - 09/03/2024 Clinical history: Preoperative evaluation, history of asthma. Morbid obesity. Comparisons: 10/10/2020 through 12/13/2023. Findings: 2 views of the chest obtained. Heart size and pulmonary vasculature appear within normal limits. Lungs appear clear. No pleural effusion nor pneumothorax. IMPRESSION: No evidence for acute cardiopulmonary disease. Finalized by Azael Garibay MD on 09/03/2024 10:49 PM [facility] Radiology Study observation (narrative) [facility] XR Chest PA and LateralOrder ed By: Azael Garibay on 09-03-2024 [facility] Work Phone: Surgical Pathologyon 024 Surgical Pathology Normal [facility] Comment on above: Result Comment: [facility] [address] [place] [address] Surgical Pathology Consultation Patient Name:RAYA GONZALES:1980 (Age: 44)Gender:FTaken:07/15/2024eported:07/26/2024hysician(s):Elvi Chapman M.D. ([phone])Copy To: Rec. #:[id number]: #[id number] Final Pathologic Diagnosis 1. Endocervix - ECC: - Benign surface endocervical lining with focal squamous metaplasia (no dysplasia or neoplasia) 2. Endometrium - biopsy: - Mildly disordered proliferative endometrium (no polyps, hyperplasia or neoplasia) Report Electronically Signed Out hoover/07/26/2024Emanuel Islas MD Interpretation performed at [facility], [address] [place] [address], License number: [id number]. Clinical History Dysfunctional uterine bleeding (DUB) N93.8. Gross Description 1. Received in formalin labeled VINNY, ECC is a plastic wired brush with robles-brown soft tissue fragments admixed with hemorrhagic and mucoid material, 2.7 x 1.2 x 0.2 cm in aggregate. The specimen is filtered and entirely submitted in a single cassette. (1, ns, [id number],m2) DM. 2. Received in formalin labeled VINNY, EMB robles-brown soft tissue fragments and base with hemorrhagic and mucoid material, 2.7 x 2.3 x 0.3 cm in aggregate. The specimen is filtered and entirely submitted in a single cassette. (1, ns, [id number],m2) DM. Fixation Time: Tissue removed from patient: 1945 Time specimen placed in formalin: 1946 Cold ischemic time: Less than 1 minute Total fixation time: 14-1/2 hours /07/16/2024NSK Specimen(s) Received 1: Endocervical curettings 2: Endometrial biopsy Fee Codes(s): 1; 57115 2; 27228 COMPLETE BLOOD COUNTon 07-09 Erythrocyte distribution width (RBC) [Ratio] 16.8 % High 11.5-15.0 [facility] Comment on above: Performed By: #### C BC, CMP, 37565-6, THYR #### [facility] ([id number]) [address] [place] [address], [address] [place] [address] Hematocrit (Bld) [Volume fraction] 43.3 % Normal 35-47 [facility] Comment on above: Performed By: #### Gino HARRIS CMP, 61723-6, THYR #### [facility] ([id number]) [address], [facility] [address] [place] [address] Hemoglobin (Bld) [Mass/Vol] 13.8 g/dL Normal 11.7-15.5 [facility] Comment on above: Performed By: #### Gino HARRIS CMP, 95477-5, THYR #### [facility] ([id number]) [address], [facility] [address] [place] [address] MCH (RBC) [Entitic mass] 24.0 pg Low 27-34 [facility] Comment on above: Performed By: #### Gino HARRIS CMP, 44170-4, THYR #### [facility] ([id number]) [address], [facility] [address] [place] [address] MCHC (RBC) [Mass/Vol] 32.0 g/dL Normal 32-36 [facility] Comment on above: Performed By: #### Gino HARRIS CMP, 22034-3, THYR #### [facility] ([id number]) [address], [facility] [address] [place] [address] MCV (RBC) [Entitic vol] 75 fL Low 80-100 [facility] Comment on above: Performed By: #### Gino HARRIS CMP, 29724-8, THYR #### [facility] ([id number]) [address], [facility] [address] [place] [address] Platelet mean volume (Bld) [Entitic vol] 8.0 fL Normal 7-12 [facility] Comment on above: Performed By: #### Gino HARRIS CMP, 61534-5, THYR #### [facility] ([id number]) [address], [address] [place] [address] Platelets (Bld) [#/Vol] 382 10*3/uL Normal 150-450 [facility] Comment on above: Performed By: #### Gino HARRIS CMP, 51900-6, THYR #### [facility] ([id number]) [address], [address] [place] [address] RBC COUNT 5.77 X10E12/L High 3.80-5.20 [facility] Comment on above: Performed By: #### Gino HARRIS CMP, 70181-7, THYR #### [facility] ([id number]) [address], [address] [place] [address] WBC (Bld) [#/Vol] 9.0 10*3/uL Normal 4.0-11.0 [facility] Comment on above: Performed By: #### Gino HARRIS CMP, 99119-1, THYR #### [facility] ([id number]) [address], [address] [place] [address] FREE T4on 07-09-2024 Free T4 [Mass/Vol] 0.88 ng/dL Normal 0.61-1.60 [facility] Comment on above: Result Comment: NEW REFERENCE RANGE FOR PEDIATRIC PATIENTS Performed By: #### Gino HARRIS CMP, 01053-7, THYR #### [facility] ([id number]) [address], [address] [place] [address] Follitropin Qnon 07-09-2024 FOLLICLE STIM HORMONE 6.9 mIU/mL Normal [facility] Comment on above: Result Comment: NORMAL FEMALE Luteal 1.8-5.1 mIU/mL Follicular 3.8-8.8 mIU/mL Mid Cycle 4.5-22.5 mIU/mL [facility] [place] 16.7-113.6 mIU/mL Performed By: #### C STEVEN, CMP, 42992-8, THYR #### [facility] ([id number]) [address] [facility], [address] [place] [address] HCG.beta subunit IA 3rd IS Q non 07-09-2024 SERUM B HCG,3RD I.S. <5 Normal [facility] [...] trophoblastic or nontrophoblastic neoplasms. Performed By: #### Gino HARRIS, LELIA, 84644-6, THYR #### [facility] ([id number]) [address] [place] [address], [address] [place] [address] Lutropin Qnon 07-09-2024 LUTEINIZING HORMONE 2.6 mIU/mL Normal [facility] Comment on above: Result Comment: NORMAL FEMALE Follicular 2.1-10.9 mIU/mL Mid Cycle 19.2-103 mIU/mL Luteal 1.2-12.9 mIU/mL [facility] [place] 10.9-58.6 mIU/mL Performed By: #### Gino HARRIS, CMP, 40463-4, THYR #### [facility] ([id number]) [address] [facility], [address] [place] [address] Prolactin [Mass/Vol]on 07-09 PROLACTIN 25.4 ng/mL Normal 3.3-26.7 [facility] Comment on above: Performed By: #### C STEVEN, [facility], 34999-3, THYR #### [facility] ([id number]) [address], [address] [place] [address] TSH Qnon 07-09-2024 TSH 3.82 uIU/mL Normal 0.49-4.67 [facility] Comment on above: Result Comment: NEW REFERENCE RANGE FOR PEDIATRIC PATIENTS Performed By: #### C STEVEN, [facility], 38282-3, THYR #### [facility] ([id number]) [address], [address] [place] [address] US PELVIC WITH TRANSVAGINALo n 06-24-2024 US [...] Valero MD on 06/24/2024 7:12 PM Normal [facility] CBC AND AUTO DIFFon 06-21-20 ABSOLUTE BASOPHIL 0.1 X10E9/L Normal 0.0-0.2 [facility] Comment on above: Performed By: #### Gino HARRIS, CMP, 43459-4, THYR #### [facility] ([id number]) [address], [address] [place] [address] ABSOLUTE NEUTROPHIL 3.7 X10E9/L Normal 1.5-6.6 [facility] Comment on above: Performed By: #### Gino HARRIS CMP, 04505-7, THYR #### [facility] ([id number]) [address], [address] [place] [address] Basophils/100 WBC (Bld) 0.9 % Normal [facility] Comment on above: Performed By: #### Gino HARRIS CMP, 10032-2, THYR #### [facility] ([id number]) [address], [address] [place] [address] Eosinophils (Bld) [#/Vol] 0.3 10*3/uL Normal 0.0-0.4 [facility] Comment on above: Performed By: #### Gino HARRIS, CMP, 30014-0, THYR #### [facility] ([id number]) [address], [address] [place] [address] Eosinophils/100 WBC (Bld) 4.2 % Normal [facility] Comment on above: Performed By: #### Gino HARRIS, CMP, 52854-6, THYR #### [facility] ([id number]) [address], [address] [place] [address] Erythrocyte distribution width (RBC) [Ratio] 16.0 % High 11.5-15.0 [facility] Comment on above: Performed By: #### Gino BC, CMP, 57010-5, THYR #### [facility] ([id number]) [address], [address] [place] [address] Hematocrit (Bld) [Volume fraction] 37.6 % Normal 35-47 [facility] Comment on above: Performed By: #### Gino HARRIS CMP, 37035-2, THYR #### [facility] ([id number]) [address] [address] [place] [address] Hemoglobin (Bld) [Mass/Vol] 12.0 g/dL Normal 11.7-15.5 [facility] Comment on above: Performed By: #### Gino HARRIS CMP, 51280-9, THYR #### [facility] ([id number]) [address], [facility] [address] [place] [address] Lymphocytes (Bld) [#/Vol] 1.9 10*3/uL Normal 1.0-3.5 [facility] Comment on above: Performed By: #### Gino HARRIS CMP, 14711-7, THYR #### [facility] ([id number]) [address], [address] [place] [address] Lymphocytes/100 WBC (Bld) 29.8 % Normal [facility] Comment on above: Performed By: #### Gino HARRIS CMP, 29858-7, THYR #### [facility] ([id number]) [address] [address] [place] [address] MCH (RBC) [Entitic mass] 24.2 pg Low 27-34 [facility] Comment on above: Performed By: #### Gino HARRIS CMP, 93857-4, THYR #### [facility] ([id number]) [address] [address] [place] [address] MCHC (RBC) [Mass/Vol] 31.8 g/dL Low 32-36 [facility] Comment on above: Performed By: #### Gino HARRIS CMP, 11736-9, THYR #### [facility] ([id number]) [address], [address] [place] [address] MCV (RBC) [Entitic vol] 76 fL Low 80-100 [facility] Comment on above: Performed By: #### Gino BC, CMP, 86056-6, THYR #### [facility] ([id number]) [address], [address] [place] [address] Monocytes (Bld) [#/Vol] 0.5 10*3/uL Normal 0-0.9 [facility] Comment on above: Performed By: #### Gino BC, CMP, 71621-1, THYR #### [facility] ([id number]) [address], [address] [place] [address] Monocytes/100 WBC (Bld) 7.9 % Normal [facility] Comment on above: Performed By: #### Gino HARRIS CMP, 83002-6, THYR #### [facility] ([id number]) [address], [address] [place] [address] Neutrophils/100 WBC (Bld) 57.2 % Normal [facility] Comment on above: Performed By: #### Gino BC, CMP, 59532-8, THYR #### [facility] ([id number]) [address], [address] [place] [address] Platelet mean volume (Bld) [Entitic vol] 7.6 fL Normal 7-12 [facility] Comment on above: Performed By: #### Gino BC, CMP, 57985-3, THYR #### [facility] ([id number]) [address], [address] [place] [address] Platelets (Bld) [#/Vol] 408 10*3/uL Normal 150-450 [facility] Comment on above: Performed By: #### Gino BC, CMP, 28773-4, THYR #### [facility] ([id number]) [address], [address] [place] [address] RBC COUNT 4.95 X10E12/L Normal 3.80-5.20 [facility] Comment on above: Performed By: #### Gino BC, CMP, 67113-6, THYR #### [facility] ([id number]) [address], [address] [place] [address] WBC (Bld) [#/Vol] 6.4 10*3/uL Normal 4.0-11.0 [facility] Comment on above: Performed By: #### C STEVEN, CMP, 05394-3, THYR #### [facility] ([id number]) [address], [address] [place] [address] COMPREHENSIVE METABOLIC PANE Toribio 06-21-2024 Albumin [Mass/Vol] 4.1 g/dL Normal 3.2-5.3 [facility] Comment on above: Performed By: #### Gino BC, CMP, 53917-3, THYR #### [facility] ([id number]) [address], [address] [place] [address] ALP [Catalytic activity/Vol] 71 U/L Normal 39-130 [facility] Comment on above: Performed By: #### Gino BC, CMP, 20022-4, THYR #### [facility] ([id number]) [address], [address] [place] [address] ALT [Catalytic activity/Vol] 44 U/L High 0-31 [facility] Comment on above: Performed By: #### C BC, CMP, 29174-4, THYR #### [facility] ([id number]) [address], [address] [place] [address] Anion gap [Moles/Vol] 9 mmol/L Normal 5-15 [facility] Comment on above: Performed By: #### Gino BC, CMP, 21045-4, THYR #### [facility] ([id number]) [address], [address] [place] [address] AST [Catalytic activity/Vol] 34 U/L Normal 0-41 [facility] Comment on above: Performed By: #### Gino HARRIS CMP, 75343-9, THYR #### [facility] ([id number]) [address], [address] [place] [address] Bilirubin [Mass/Vol] 0.5 mg/dL Normal 0.3-1.2 [facility] Comment on above: Performed By: #### Gino HARRIS CMP, 10179-1, THYR #### [facility] ([id number]) [address], [address] [place] [address] Calcium [Mass/Vol] 9.1 mg/dL Normal 8.5-10.5 [facility] Comment on above: Performed By: #### Gino HARRIS CMP, 46982-9, THYR #### [facility] ([id number]) [address], [address] [place] [address] Chloride [Moles/Vol] 103 mmol/L Normal 98-109 [facility] Comment on above: Performed By: #### Gino HARRIS, CMP, 28798-4, THYR #### [facility] ([id number]) [address], [address] [place] [address] CO2 [Moles/Vol] 24 mmol/L Normal 22-32 [facility] Comment on above: Performed By: #### Gino BC, CMP, 25116-0, THYR #### [facility] ([id number]) [address], [address] [place] [address] Creatinine [Mass/Vol] 0.68 mg/dL Normal 0.40-1.00 [facility] Comment on above: Result Comment: METH OD TRACEABLE TO IDMS STANDARD Performed By: #### Gino HARRIS CMP, 06662-2, THYR #### [facility] ([id number]) [address], [address] [place] [address] eGFR (CKD-EPI) NON-RACE DEPENDENT >90 Normal >59 [facility] Comment on above: Result Comment: Reported eGFR is based on the CKD-EPI 2020 equation that does not use a race coefficient. Performed By: #### C LELIA HARRIS, 58327-8, THYR #### [facility] ([id number]) [address], [facility] [address] [place] [address] Glucose [Mass/Vol] 108 mg/dL High 65-99 [facility] Comment on above: Performed By: #### Gino HARRIS CMP, 63207-2, THYR #### [facility] ([id number]) [address] [address] [place] [address] Potassium [Moles/Vol] 3.8 mmol/L Normal 3.5-5.0 [facility] Comment on above: Performed By: #### Gino HARRIS CMP, 28373-1, THYR #### [facility] ([id number]) [address], [facility] [address] [place] [address] Protein [Mass/Vol] 7.5 g/dL Normal 6.0-8.0 [facility] Comment on above: Performed By: #### Gino HARRIS CMP, 37225-7, THYR #### [facility] ([id number]) [address] [address] [place] [address] Sodium [Moles/Vol] 136 mmol/L Normal 134-146 [facility] Comment on above: Performed By: #### Gino HARRIS CMP, 77710-6, THYR #### [facility] ([id number]) [address] [address] [place] [address] Urea nitrogen [Mass/Vol] 10 mg/dL Normal 5-23 [facility] Comment on above: Performed By: #### Gino HARRIS CMP, 28158-1, THYR #### [facility] ([id number]) [address], [address] [place] [address] CT ABDOMEN AND PELVIS W CONT on [...] Bradley MD on 06/21/2024 3:20 PM Normal [facility] LIPASEon 06-21-2024 Lipase [Catalytic activity/Vol] 41 U/L High 17-40 [facility] Comment on above: Performed By: #### C LELIA HARRIS, 08688-5, THYR #### [facility] ([id number]) [address], [address] [place] [address] PROTIME AND INRon 06-21-2024 INR Coag (PPP) [Relative time] 1.0 {INR} Normal 0.8-1.1 [facility] Comment on above: Performed By: #### C LELIA HARRIS, 84299-1, THYR #### [facility] ([id number]) [address], [address] [place] [address] PT Coag (PPP) [Time] 11.6 s Normal 9.8-13.2 [facility] Comment on above: Result Comment: NEW REFERENCE RANGE Performed By: #### C LELIA HARRIS, 62304-3, THYR #### [facility] ([id number]) [address], [address] [place] [address] URN MACROSCOPIC NURon 2023 BILIRUBIN JOURDAN Negative Normal NEG [facility] Comment on above: Performed By: #### Gino HARRIS [facility], 31304-8, THYR #### [facility] ([id number]) [address], [address] [place] [address] BLOOD/HGB JOURDAN Negative Normal NEG [facility] Comment on above: Performed By: #### Gino HARRIS [facility], 13573-7, THYR #### [facility] ([id number]) [address], [address] [place] [address] GLUCOSE JOURDAN Negative Normal NEG [facility] Comment on above: Performed By: #### Gino HARRIS [facility], 98205-7, THYR #### [facility] ([id number]) [address], [address] [place] [address] KETONES JOURDAN Negative Normal NEG [facility] Comment on above: Performed By: #### Gino HARRIS [facility], 91932-8, THYR #### [facility] ([id number]) [address], [address] [place] [address] LEUKOCYTE ESTERASE JOURDAN Negative Normal NEG [facility] Comment on above: Performed By: #### Gino HARRIS [facility], 21188-2, THYR #### [facility] ([id number]) [address], [address] [place] [address] NITRITE JOURDAN Negative Normal NEG [facility] Comment on above: Performed By: #### Gino HARRIS [facility], 41831-0, THYR #### [facility] ([id number]) [address], [address] [place] [address] PH JOURDAN 6.0 Normal 5.0-8.5 [facility] Comment on above: Performed By: #### C BC, CMP, 22662-9, THYR #### [facility] ([id number]) [address], [address] [place] [address] PROTEIN JOURDAN Negative Normal NEG [facility] Comment on above: Performed By: #### C BC, CMP, 57230-4, THYR #### [facility] ([id number]) [address] [facility] [address] [place] [address] SPECIFIC GRAVITY JOURDAN 1.010 Normal 1.003-1.035 [facility] Comment on above: Performed By: #### C BC, CMP, 82696-0, THYR #### [facility] ([id number]) [address] [facility], [address] [place] [address] UROBILINOGEN JOURDAN 0.2 eu/dL Normal <1.1 [facility] Comment on above: Performed By: #### Gino BC, CMP, 76711-0, THYR #### [facility] ([id number]) [address] [facility], [facility] [address] [place] [address] aPTT Coag (PPP) [Time]on aPTT Coag (Bld) [Time] 34 s Normal 26-37 [facility] Comment on above: Result Comment: NEW REFERENCE RANGE Performed By: #### C BC, CMP, 34297-5, THYR #### [facility] ([id number]) [address], [address] [address] Cytologyon 06-19-2024 Cytology Normal [facility] Comment on above: Result Comment: [facility] [address] [place] [address] Gynecologic Cytology Consultation Patient Name:RAYA GONZALES:1980 (Age: 44)Gender:FTaken:4Reported:4Physician(s):Gisela Cordova, NUCLEAR MEDICAL TECH-[facility] ([phone])Copy To: Rec. #:[id number]: #[id number] Final Cytologic Interpretation ThinPrep Pap Test (Cervical): Satisfactory for evaluation. A transformation zone component is not identified via imaging-assisted review, using [employer] Thin Prep Imaging System, within 22 microscopic castillo of view. NEGATIVE FOR INTRAEPITHELIAL LESION OR MALIGNANCY. [facility] [place]07/05/2024 Interpretation performed at [facility], [address] [place] [address], License number: [id number]. Electronically Signed Out By MARIAH Loving(ASCP) Date of Last Menstrual Period: 05/14/24 Other Clinical Conditions: Abnormal Bleeding Z01.419 Breakdown Man exam wo/abn findings Source of Specimen ThinPrep Pap Test (Cervical) Thin Prep Pap (PERSONAL CARE SERVICE PROVIDER) Fee Code(s): G0145 The Pap test is a screening test with an inherent, but low, probability of error. The Pap test is primarily effective for the diagnosis and prevention of squamous cell carcinoma. Regular screening is critical for prevention. ThinPrep liquid-based slides, which meet the Environmental Science Program Director criteria for automated screening, have been screened by the ThinPrep Imaging System (as of 04/16/07) along with an additional manual rescreening by a pst manager and, if indicated, by a pathologist. HIGH RISK HPV W/GENOon 06-19 HPV 31+33+35+39+45+51+52+ 56+58+59+66+68 DNA JOSELUIS+probe Ql (Cvx) HPV SPECIMEN TYPE ThinPrep HPV 16 Negative (qualifier value) HPV 18 Negative (qualifier value) OTHER HIGH RISK HPV Negative (qualifier value) HPV types 31,33,35,39,45,52,56,5 8,59,66 and 68 DNA were undetectable. Normal [facility] Comment on above: Performed By: #### 7 1431-1 ####[facility] ([id number])[address] [place] [address] LAB ([id number])[address] [place] [address], [address] [place] [address] Alpha 1 antitrypsin Nephelom etry [Mass/Vol]on 06-17-2024 ALPHA 1 ANTITRYPSIN 193 mg/dL Normal 83-199 [facility] Comment on above: Performed By: #### Gino , 67690-5, HA1C, 6771-0, IMGB, THYR, 2131-9, 12622-9, 23382-3 ####[facility] ([id number])[address] [place] [address], [address] [place] [address]#### 40649-2 ####[facility] ([id number])[address] [place] [address] Alpha 1 antitrypsin phenotyp ing [Interp]on 06-17-2024 Hxxkc-8-Gtcctqvimru Phenotype MM Normal [facility] Comment on above: Result Comment: NOTE A single M isoform is detected. In the context of a normal axolz-9-jwclozflbxs concentration, this is consistent with an MM phenotype. ADDITIONAL INFORMATION Method: Isoelectric Focusing, This assay identifies the phenotype of the circulating etujf-5-orejjjruqbw (A1A) protein. If the patient is on replacement therapy or has been recently transfused, the phenotype will detect patient and replacement or transfused plasma A1A protein. This test also cannot detect a null allele which could be responsible for an A1A deficiency. Performed By: #### Gino , 95222-7, HA1C, 6771-0, IMGB, THYR, 2131-9, 18986-1, 36062-7 ####[facility] ([id number])[address] [place] [address], [address] [place] [address]#### 63587-4 ####[facility] ([id number])[address] [place] [address] Gzjoy-3-Rrbfnldrmtd, S 180 mg/dL Normal 100 - 190 [facility] Comment on above: Result Comment: NOTE ADDITIONAL INFORMATION Method: Nephelometry Test Performed by: [facility] [address] [place] [address] Supervisor Plate Forming: Arabella Trejo Ph.D.; CLIA# [id number] Performed By: #### C BC, 45111-2, HA1C, 6771-0, IMGB, THYR, 2131-9, 67269-2, 62776-8 ####[facility] ([id number])[address] [place] [address]#### 67645-8 ####[facility] ([id number])[address] [place] [address] B. burgdorferi IgG+IgM Qn (S )on 06-17-2024 LYME TOTAL <0.2 Normal <0.9 [facility] Comment on above: Result Comment: Interpretation-------- <0.9 Negative 0.9 - 1.0 Equivocal >1.0 Positive No serological evidence of Borrelia infection.A non-reactive result does not exclude the possibility of Borrelia infection and cannot exclude early infection with B.burgdorferi. If Lyme borreliosis is suspected, a second sample should be collected and tested 2-4 weeks later. Performed By: #### C BC, 62512-9, HA1C, 6771-0, IMGB, THYR, 2131-9, 90226-5, 08448-2 ####[facility] ([id number])[address] [place] [address]#### 74620-5 ####[facility] ([id number])[address] [place], [place] [id number] COMPLETE BLOOD COUNTon 06-17 Erythrocyte distribution width (RBC) [Ratio] 16.2 % High 11.5-15.0 [facility] Comment on above: Performed By: #### C BC, 02970-3, HA1C, 6771-0, IMGB, THYR, 2132-9, 62823-7, 92540-2 ####[facility] ([id number])[address], [address] [place] [address]#### 34168-4 ####[facility] ([id number])[address] [place] [address] Hematocrit (Bld) [Volume fraction] 41.8 % Normal 35-47 [facility] Comment on above: Performed By: #### C STEVEN, 21336-3, HA1C, 71-0, IMGB, THYR, 2131-9, 04459-4, 59708-1 ####[facility] ([id number])[address], [address] [place] [address]#### 49999-3 ####[facility] ([id number])[address] [place] [address] Hemoglobin (Bld) [Mass/Vol] 13.2 g/dL Normal 11.7-15.5 [facility] Comment on above: Performed By: #### C STEVEN, 41373-6, HA1C, 6771-0, IMGB, THYR, 2131-9, 58289-4, 31427-1 ####[facility] ([id number])[address], [address] [place] [address]#### 94109-2 ####[facility] ([id number])[address] [place] [address] MCH (RBC) [Entitic mass] 24.2 pg Low 27-34 [facility] Comment on above: Performed By: #### C STEVEN, 14862-3, HA1C, 6771-0, IMGB, THYR, 2131-9, 93527-2, 35576-4 ####[facility] ([id number])[address] [address]#### 51410-1 ####[facility] ([id number])[address] [place] [address]88 MCHC (RBC) [Mass/Vol] 31.6 g/dL Low 32-36 [facility] Comment on above: Performed By: #### C STEVEN, 37697-4, HA1C, 6771-0, IMGB, THYR, 2131-9, 82782-9, 30396-0 ####[facility] ([id number])[address] [address]#### 26572-1 ####[facility] ([id number])[address] [place] [address] 99147 MCV (RBC) [Entitic vol] 77 fL Low 80-100 [facility] Comment on above: Performed By: #### C STEVEN, 72784-0, HA1C, 6771-0, IMGB, THYR, 2131-, 41350-0, 46755-5 ####[facility] ([id number])[address] [address]#### 85876-4 ####[facility] ([id number])[address] [place] [address] 28786 Platelet mean volume (Bld) [Entitic vol] 8.4 fL Normal 7-12 [facility] Comment on above: Performed By: #### C BC, 00479-7, HA1C, 6771-0, IMGB, THYR, 2131-9, 46471-4, 83141-6 ####[facility] ([id number])[address] [place] [address]#### 42360-1 ####[facility] ([id number])[address] [place] [address] 17014 Platelets (Bld) [#/Vol] 460 10*3/uL High 150-450 [facility] Comment on above: Performed By: #### C BC, 46907-3, HA1C, 6771-0, IMGB, THYR, 2132-9, 92769-7, 47495-4 ####[facility] ([id number])[address], [address] [place] [address]#### 25536-0 ####[facility] ([id number])[address] [place] [address] 52936 RBC COUNT 5.45 X10E12/L High 3.80-5.20 [facility] Comment on above: Performed By: #### C BC, 42419-2, HA1C, 6771-0, IMGB, THYR, 2132-9, 25425-6, 80013-6 ####[facility] ([id number])[address], [address] [place] [address]#### 71467-2 ####[facility] ([id number])[address] [place] [address] 38235 WBC (Bld) [#/Vol] 12.1 10*3/uL High 4.0-11.0 [facility] Comment on above: Performed By: #### C BC, 11933-9, HA1C, 6771-0, IMGB, THYR, 2132-9, 39278-0, 35886-1 ####[facility] ([id number])[address], [address] [place] [address]#### 14755-5 ####[facility] ([id number])[address] [place] [address] EOSINOPHIL, TOTALon 06-17-20 24 Eosinophils (Bld) [#/Vol] 0.2 10*3/uL Normal 0.0-0.4 [facility] Comment on above: Performed By: #### C BC, 87337-4, HA1C, 6771-0, IMGB, THYR, 2132-9, 68552-0, 99311-4 ####[facility] ([id number])[address] [place] [address], [address] [place] [address]#### 89863-0 ####[facility] ([id number])[address] [place] [address] HGB A1C (GLYCO-HGB)on 2023 Glucose [Mass/Vol] 169 mg/dL Normal [facility] Comment on above: Performed By: #### C BC, 35521-5, HA1C, 6771-0, IMGB, THYR, 2131-9, 18098-8, 00672-9 ####[facility] ([id number])[address] [place] [address], [place] [address]#### 23213-9 ####[facility] ([id number])[address] [place] [address]166 HbA1c (Bld) [Mass fraction] 7.5 % High 4.4-5.6 [facility] Comment on above: Result Comment: NOTE ADA Guidelines Result HgbA1c Normal : less than 5.7 % Prediabetes : 5.7 % to 6.4 % Diabetes : > 6.4 % Use with caution in patients with abnormal hemoglobin variants as the half-life of red blood cells and in vivo glycation rates are affected. Performed By: #### C BC, 62109-1, HA1C, 6771-0, IMGB, THYR, 2132-9, 41492-8, 49168-7 ####[facility] ([id number])[address], [address] [place] [address]#### 95466-1 ####[facility] ([id number])[address] [place] [address] 18568 IMMUNOGLOBULINSon 06-17-2024 IgA [Mass/Vol] 181 mg/dL Normal 68-378 [facility] Comment on above: Performed By: #### C BC, 06025-9, HA1C, 6771-0, IMGB, THYR, 2132-9, 94939-2, 69005-4 ####[facility] ([id number])[address], [address] [place] [address]#### 00628-2 ####[facility] ([id number])[address] [place] [address] IgG [Mass/Vol] 672 mg/dL Normal 635-1741 [facility] Comment on above: Performed By: #### C BC, 94418-1, HA1C, 6771-0, IMGB, THYR, 2132-9, 49260-2, 22525-7 ####[facility] ([id number])[address], [address] [place] [address]#### 23997-8 ####[facility] ([id number])[address] [place] [address] 47700 IgM [Mass/Vol] 165 mg/dL Normal 45-281 [facility] Comment on above: Performed By: #### C BC, 33697-2, HA1C, 6771-0, IMGB, THYR, 2132-9, 42414-9, 35467-7 ####[facility] ([id number])[address], [address] [place] [address]#### 34660-3 ####[facility] ([id number])[address] [place] [address]379 Nuclear Ab IA Ql (S)on 06-17 RODRIGO Screen w/reflex Negative Normal NEG [facility] Comment on above: Result Comment: Testing performed using multiplex flow immunoassay. Eleven different antigens associated with systemic autoimmune diseases (dsDNA,Sm,Sm/[employer],Chromatin, SSA,SSB,Maria Guadalupe-1,Scl70,Ribo P,Centromere B) are included in this screening test. Performed By: #### C BC, 86814-6, HA1C, 6771-0, IMGB, THYR, 2-9, 34588-7, 95465-7 ####[facility] ([id number])[address] [place] [address]#### 39472-6 ####[facility] ([id number])[address] [place] [address] RESPIRATORY PANELon 06-17-20 24 ALTERNARIA ALTERNATA <0.10 Normal <0.10 [facility] Comment on above: Result Comment: Clas s 0: Normal Performed By: #### R AP ####[facility] ([id number])[address] [place] [address] ASPERGILLUS FUMIGATUS <0.10 Normal <0.10 [facility] Comment on above: Result Comment: Clas s 0: Normal Performed By: #### R AP ####[facility] ([id number])[address] [place] [address] BERMUDA GRASS <0.10 Normal <0.10 [facility] Comment on above: Result Comment: Clas s 0: Normal Performed By: #### R AP ####[facility] ([id number])[address] [place] [address] BOX ELDER <0.10 Normal <0.10 [facility] Comment on above: Result Comment: Clas s 0: Normal Performed By: #### R AP ####[facility] ([id number])[address], [address], [place] [address] CAT DANDER <0.10 Normal <0.10 [facility] Comment on above: Result Comment: Clas s 0: Normal Performed By: #### R AP ####[facility] ([id number])[address], [address], [place] [address] CLADOSPORIUM HERB <0.10 Normal <0.10 [facility] Comment on above: Result Comment: Clas s 0: Normal Performed By: #### R AP ####[facility] ([id number])[address], [address] [place] [address] COCKLEBUR <0.10 Normal <0.10 [facility] Comment on above: Result Comment: Clas s 0: Normal Performed By: #### R AP ####[facility] ([id number])[address], [address], [place] [address] COCKROACH 0.14 kU/L High <0.10 [facility] Comment on above: Result Comment: Clas s 0/1: Low level of Allergy, ongoing sensitization Performed By: #### R AP ####[facility] ([id number])[address], [address], [place] [address] COMMON PIGWEED <0.10 Normal <0.10 [facility] Comment on above: Result Comment: Clas s 0: Normal Performed By: #### R AP ####[facility] ([id number])[address] [place] [address] COMMON RAGWEED <0.10 Normal <0.10 [facility] Comment on above: Result Comment: Clas s 0: Normal Performed By: #### R AP ####[facility] ([id number])[address], [address], [place] [address] COMMON SILVER BIRCH <0.10 Normal <0.10 [facility] Comment on above: Result Comment: Clas s 0: Normal Performed By: #### R AP ####[facility] ([id number])[address], [address], [place] [address] COTTONWOOD <0.10 Normal <0.10 [facility] Comment on above: Result Comment: Clas s 0: Normal Performed By: #### R AP ####[facility] ([id number])[address], [address], [place] [address] DERMATOPH FARINAE <0.10 Normal <0.10 [facility] Comment on above: Result Comment: Clas s 0: Normal Performed By: #### R AP ####[facility] ([id number])[address] [place] [address] DERMATOPH PTERONYSS <0.10 Normal <0.10 [facility] Comment on above: Result Comment: Clas s 0: Normal Performed By: #### R AP ####[facility] ([id number])[address] [place] [address] DOG DANDER <0.10 Normal <0.10 [facility] Comment on above: Result Comment: Clas s 0: Normal Performed By: #### R AP ####[facility] ([id number])[address] [place] [address] ELM <0.10 Normal <0.10 [facility] Comment on above: Result Comment: Clas s 0: Normal Performed By: #### R AP ####[facility] ([id number])[address] [place] [address] GOOSEFOOT LITTLE QTR <0.10 Normal <0.10 [facility] Comment on above: Result Comment: Clas s 0: Normal Performed By: #### R AP ####[facility] ([id number])[address], [place] [address] IGE 31 IU/mL Normal 0-165 [facility] Comment on above: Performed By: #### R AP ####[facility] ([id number])[address], [place] [address] RUSS GRASS <0.10 Normal <0.10 [facility] Comment on above: Result Comment: Clas s 0: Normal Performed By: #### R AP ####[facility] ([id number])[address] [place] [address] MAPLE LEAF SYCAMORE <0.10 Normal <0.10 [facility] Comment on above: Result Comment: Clas s 0: Normal Performed By: #### R AP ####[facility] ([id number])[address] [place] [address] [place] GURPREET <0.10 Normal <0.10 [facility] Comment on above: Result Comment: Clas s 0: Normal Performed By: #### R AP ####[facility] ([id number])[address], [place] [address] MOUNTAIN JUNIPER <0.10 Normal <0.10 [facility] Comment on above: Result Comment: Clas s 0: Normal Performed By: #### R AP ####[facility] ([id number])[address] [place] [address] MOUSE URINE PROTEINS <0.10 Normal <0.10 [facility] Comment on above: Result Comment: Clas s 0: Normal Performed By: #### R AP ####[facility] ([id number])[address] [place] [address] MUGWORT <0.10 Normal <0.10 [facility] Comment on above: Result Comment: Clas s 0: Normal Performed By: #### R AP ####[facility] ([id number])[address] [place] [address] MULBERRY TREE <0.10 Normal <0.10 [facility] Comment on above: Result Comment: Clas s 0: Normal Performed By: #### R AP ####[facility] ([id number])[address], [address] [place] [address] NETTLE <0.10 Normal <0.10 [facility] Comment on above: Result Comment: Clas s 0: Normal Performed By: #### R AP ####[facility] ([id number])[address], [place] [address] OAK <0.10 Normal <0.10 [facility] Comment on above: Result Comment: Clas s 0: Normal Performed By: #### R AP ####[facility] ([id number])[address], [place] [address] PECAN HICKORY TREE <0.10 Normal <0.10 [facility] Comment on above: Result Comment: Clas s 0: Normal Performed By: #### R AP ####[facility] ([id number])[address], [place] [address] PENICILLIUM CHRYSOGENUM <0.10 Normal <0.10 [facility] Comment on above: Result Comment: Clas s 0: Normal Performed By: #### R AP ####[facility] ([id number])[address], [address], [place] [address] ROUGH MARSHELDER <0.10 Normal <0.10 [facility] Comment on above: Result Comment: Clas s 0: Normal Performed By: #### R AP ####[facility] ([id number])[address] [place] [address] SALTWORT RICK THISTLE <0.10 Normal <0.10 [facility] Comment on above: Result Comment: Clas s 0: Normal Performed By: #### R AP ####[facility] ([id number])[address], [address] [place] [address] SHEEP SORREL <0.10 Normal <0.10 [facility] Comment on above: Result Comment: Clas s 0: Normal Performed By: #### R AP ####[facility] ([id number])[address] [address] [place] [address] ANAI <0.10 Normal <0.10 [facility] Comment on above: Result Comment: Clas s 0: Normal Performed By: #### R AP ####[facility] ([id number])[address] [address] WALNUT TREE POLLEN <0.10 Normal <0.10 [facility] Comment on above: Result Comment: Clas s 0: Normal Performed By: #### R AP ####[facility] ([id number])[address] [address] [place] [address] WHITE LAZARO <0.10 Normal <0.10 [facility] Comment on above: Result Comment: Clas s 0: Normal Performed By: #### R AP ####[facility] ([id number])[address] [address] [place] [address] THYROID PROFILEon 06-17-2024 Free T4 [Mass/Vol] 1.06 ng/dL Normal 0.61-1.60 [facility] Comment on above: Performed By: #### C BC, 76743-1, HA1C, 6771-0, IMGB, THYR, 2131-9, 08812-1, 39625-0 ####[facility] ([id number])[address] [address]#### 87823-3 ####[facility] ([id number])[address] [place] [address] TSH 4.33 uIU/mL Normal 0.49-4.67 [facility] Comment on above: Performed By: #### C BC, 28106-2, HA1C, 6771-0, IMGB, THYR, 2132-9, 44735-9, 30301-3 ####[facility] ([id number])[address] [facility], [address] [place] [address]#### 14026-6 ####[facility] ([id number])[address] [place] [address] VITAMIN B12on 06-17-2024 Cobalamin (Vitamin B12) [Mass/Vol] 460 pg/mL Normal 180-914 [facility] Comment on above: Performed By: #### C BC, 53094-9, HA1C, 6771-0, IMGB, THYR, 2132-9, 52970-3, 48633-1 ####[facility] ([id number])[address] [place] [address], [address] [place] [address]#### 91102-4 ####[facility] ([id number])[address] [place] [address] HERPES SIMPLEX VIRAL PCRon 08-12-2023 HERPES SIMPLEX VIRAL PCR SPECIMEN SOURCE VAGINAL LESION HERPES SIMPLEX 1 PCR Negative (qualifier value) HSV 1 DNA Not Detected HERPES SIMPLEX 2 PCR Negative (qualifier value) HSV 2 DNA Not Detected Normal [facility] Comment on above: Performed By: #### H SV12 #### [facility] ([id number]) [address] [place] [address], [address] [place] [address] MAMM DIAGNOSTIC BILATERAL W CADon 03-05-2024 MAMM [...] results before leaving the department. Finalized by Allison Min MD on 03/05/2024 1:43 PM 1 b MAMM 1 YR Normal [facility] US BREAST LT LIMITEDon 03-05 US [...] results before leaving the department. Finalized by Allison Min MD on 03/05/2024 2:12 PM 1 MAMM 1 YR Normal [facility] MR BRAIN W WO CONTon 02-27-2 [...] clear. Temporal bones are clear. IMPRESSION: * Ivqv-yv-glzwxdvi burden of deep white matter signal changes, [...] Aneesh Mendez on 02/28/2024 11:47 AM Normal [facility] MR ORBIT W WO CONTon 024 [...] Blair Motley DO on 02/28/2024 11:45 AM I, Aneesh Mendez have personally reviewed the image(s) and agree with and/or edited the report Finalized by Aneesh Mendez on 02/28/2024 1:46 PM Normal [facility] MR CERVICAL SPINE W WO CONTo [...] Early MD on 02/27/2024 3:15 PM Normal [facility] CT BRAIN WO CONTon CT BRAIN [...] Valero MD on 01/30/2024 4:36 PM Normal [facility] Fecal Panc Elastaseon 2023 Pancreatic Elastase >800 Normal >=100 [facility] Comment on above: Result Comment: (NOT E) REFERENCE INTERVAL: Pancreatic Elastase Fecal by Immunoassay Less than 100 ug/g............Severe insufficiency 100 - 199 ug/g................Moderate insufficiency 200 ug/g or greater...........Normal INTERPRETIVE INFORMATION: Pancreatic Elastase Fecal by Immunoassay Reference intervals do not apply for infants less than one month old. Performed By: [facility] [address] [place] [address] Uke Operator: Landon Winters MD, PhD CLIA Number: [id number] Performed By: #### A PEF #### [facility] [address] [place] [address] Supervisor Plate Forming: Casey Howard MD CBC AND AUTO DIFFon 01-03-20 24 ABSOLUTE BASOPHIL 0.1 X10E9/L Normal 0.0-0.2 [facility] Comment on above: Performed By: #### C KEILA, CBCA ####[facility] ([id number])[address] [place] [address] ABSOLUTE NEUTROPHIL 5.8 X10E9/L Normal 1.5-6.6 [facility] Comment on above: Performed By: #### C KEILA, CBCA ####[facility] ([id number])[address] [place] [address] 14833 Basophils/100 WBC (Bld) 0.9 % Normal [facility] Comment on above: Performed By: #### C MP, CBCA ####[facility] ([id number])[address] [place] [address] Eosinophils (Bld) [#/Vol] 0.3 10*3/uL Normal 0.0-0.4 [facility] Comment on above: Performed By: #### C MP, CBCA ####[facility] ([id number])[address] [place] [address] 47712 Eosinophils/100 WBC (Bld) 3.5 % Normal [facility] Comment on above: Performed By: #### C MP, CBCA ####[facility] ([id number])[address] [place] [address] Erythrocyte distribution width (RBC) [Ratio] 17.0 % High 11.5-15.0 [facility] Comment on above: Performed By: #### C MP, CBCA ####[facility] ([id number])[address] [place] [address]289 Hematocrit (Bld) [Volume fraction] 40.0 % Normal 35-47 [facility] Comment on above: Performed By: #### C MP, CBCA ####[facility] ([id number])[address] [place] [address] 16692 Hemoglobin (Bld) [Mass/Vol] 13.1 g/dL Normal 11.7-15.5 [facility] Comment on above: Performed By: #### C MP, CBCA ####[facility] ([id number])[address] [place] [address] 24647 Lymphocytes (Bld) [#/Vol] 1.6 10*3/uL Normal 1.0-3.5 [facility] Comment on above: Performed By: #### C MP, CBCA ####[facility] ([id number])[address] [place] [address] 25880 Lymphocytes/100 WBC (Bld) 19.3 % Normal [facility] Comment on above: Performed By: #### C MP, CBCA ####[facility] ([id number])[address] [place] [address] 64376 MCH (RBC) [Entitic mass] 26.3 pg Low 27-34 [facility] Comment on above: Performed By: #### C MP, CBCA ####[facility] ([id number])[address] [place] [address] 04502 MCHC (RBC) [Mass/Vol] 32.8 g/dL Normal 32-36 [facility] Comment on above: Performed By: #### C MP, CBCA ####[facility] ([id number])[address] [place] [address] 34105 MCV (RBC) [Entitic vol] 80 fL Normal 80-100 [facility] Comment on above: Performed By: #### C MP, CBCA ####[facility] ([id number])[address] [place] [address] 39297 Monocytes (Bld) [#/Vol] 0.5 10*3/uL Normal 0-0.9 [facility] Comment on above: Performed By: #### C MP, CBCA ####[facility] ([id number])[address] [place] [address] 07950 Monocytes/100 WBC (Bld) 5.7 % Normal [facility] Comment on above: Performed By: #### C MP, CBCA ####[facility] ([id number])[address] [place] [address] 92433 Neutrophils/100 WBC (Bld) 70.6 % Normal [facility] Comment on above: Performed By: #### C MP, CBCA ####[facility] ([id number])[address] [place] [address] 23174 Platelet mean volume (Bld) [Entitic vol] 8.1 fL Normal 7-12 [facility] Comment on above: Performed By: #### C MP, CBCA ####[facility] ([id number])[address] [place] [address] 44695 Platelets (Bld) [#/Vol] 355 10*3/uL Normal 150-450 [facility] Comment on above: Performed By: #### C MP, CBCA ####[facility] ([id number])[address] [place] [address] 06782 RBC COUNT 5.00 X10E12/L Normal 3.80-5.20 [facility] Comment on above: Performed By: #### C MP, CBCA ####[facility] ([id number])[address] [place] [address] 66342 WBC (Bld) [#/Vol] 8.3 10*3/uL Normal 4.0-11.0 [facility] Comment on above: Performed By: #### C MP, CBCA ####[facility] ([id number])[address] [place] [address] COMPREHENSIVE METABOLIC PANE Toribio 01-03-2024 Albumin [Mass/Vol] 4.3 g/dL Normal 3.2-5.3 [facility] Comment on above: Performed By: #### C MP, CBCA #### [facility] ([id number]) [address] [place] [address] ALP [Catalytic activity/Vol] 77 U/L Normal 39-130 [facility] Comment on above: Performed By: #### C MP, CBCA #### [facility] ([id number]) [address] [place] [address] [place] [address] ALT [Catalytic activity/Vol] 33 U/L High 0-31 [facility] Comment on above: Performed By: #### C MP, CBCA #### [facility] ([id number]) [address] [place] [address] [place] [address] Anion gap [Moles/Vol] 12 mmol/L Normal 5-15 [facility] Comment on above: Performed By: #### C KEILA, CBCA #### [facility] ([id number]) [address] [place] [address] 13983 AST [Catalytic activity/Vol] 24 U/L Normal 0-41 [facility] Comment on above: Performed By: #### C KEILA, CBCA #### [facility] ([id number]) [address] [place] [address] [place] [address] Bilirubin [Mass/Vol] 0.3 mg/dL Normal 0.3-1.2 [facility] Comment on above: Performed By: #### C KEILA, CBCA #### [facility] ([id number]) [address] [place] [address] Calcium [Mass/Vol] 8.8 mg/dL Normal 8.5-10.5 [facility] Comment on above: Performed By: #### C MP, CBCA #### [facility] ([id number]) [address] [place] [address] Chloride [Moles/Vol] 101 mmol/L Normal 98-109 [facility] Comment on above: Performed By: #### C MP, CBCA #### [facility] ([id number]) [address] [place] [address] 22394 CO2 [Moles/Vol] 22 mmol/L Normal 22-32 [facility] Comment on above: Performed By: #### C KEILA CBCA #### [facility] ([id number]) [address] [place] [address]58 Creatinine [Mass/Vol] 0.67 mg/dL Normal 0.40-1.00 [facility] Comment on above: Result Comment: METH OD TRACEABLE TO IDMS STANDARD Performed By: #### C KEILA CBCA #### [facility] ([id number]) [address] [place] [address]377 eGFR (CKD-EPI) NON-RACE DEPENDENT >90 Normal >59 [facility] Comment on above: Result Comment: Reported eGFR is based on the CKD-EPI 2020 equation that does not use a race coefficient. Performed By: #### C KEILA CBCA #### [facility] ([id number]) [address] [place] [address] 47942 Glucose [Mass/Vol] 165 mg/dL High 65-99 [facility] Comment on above: Performed By: #### C KEILA CBCA #### [facility] ([id number]) [address] [place] [address] 29282 Potassium [Moles/Vol] 4.0 mmol/L Normal 3.5-5.0 [facility] Comment on above: Performed By: #### C KEILA CBCShauna #### [facility] ([id number]) [address] [place] [address] 15072 Protein [Mass/Vol] 7.8 g/dL Normal 6.0-8.0 [facility] Comment on above: Performed By: #### C KEILA CBCA #### [facility] ([id number]) [address] [place] [address] 48660 Sodium [Moles/Vol] 135 mmol/L Normal 134-146 [facility] Comment on above: Performed By: #### C KEILA CBCA #### [facility] ([id number]) [address] [place] [address] 08048 Urea nitrogen [Mass/Vol] 14 mg/dL Normal - [facility] Comment on above: Performed By: #### C MP, CBCA #### [facility] ([id number]) [address] [place] [address] ABDOMEN AND PELVIS WO CON Ton [...] Lawson MD on 01/03/2024 10:20 PM Normal [facility] HCG ( test) Ql (U)o n 01-03-2024 Beta HCG ( test) Ql (U) Negative Normal NEG [facility] Comment on above: Performed By: #### 2 106-3 #### [facility] ([id number]) [address] [place] [address] 19050 URN MACROSCOPIC NURon 2023 BILIRUBIN JOURDAN Negative Normal NEG [facility] Comment on above: Performed By: #### N UM #### [facility] ([id number]) [address] [place] [address], [place] [address] BLOOD/HGB JOURDAN Trace Abnormal NEG [facility] Comment on above: Performed By: #### N UM #### [facility] ([id number]) [address] [place] [address] 39712 GLUCOSE JOURDAN Negative Normal NEG [facility] Comment on above: Performed By: #### N UM #### [facility] ([id number]) [address] [place] [address] [place] [address] KETONES JOURDAN Negative Normal NEG [facility] Comment on above: Performed By: #### N UM #### [facility] ([id number]) [address] [place] [address] 13344 LEUKOCYTE ESTERASE JOURDAN Negative Normal NEG [facility] Comment on above: Performed By: #### N UM #### [facility] ([id number]) [address] [place] [address] [place] [address] NITRITE JOURDAN Negative Normal NEG [facility] Comment on above: Performed By: #### N UM #### [facility] ([id number]) [address] [place] [address] 01807 PH JOURDAN 6.0 Normal 5.0-8.5 [facility] Comment on above: Performed By: #### N UM #### [facility] ([id number]) [address] [place] [address] 93305 PROTEIN JOURDAN Negative Normal NEG [facility] Comment on above: Performed By: #### N UM #### [facility] ([id number]) [address] [place] [address] 16989 SPECIFIC GRAVITY JOURDAN 1.025 Normal 1.003-1.035 [facility] Comment on above: Performed By: #### N UM #### [facility] ([id number]) [address] [place] [address] 62661 UROBILINOGEN JOURDAN 0.2 eu/dL Normal <1.1 [facility] Comment on above: Performed By: #### N #### [facility] ([id number]) [address] [place] [address], [place] [address] US ABDOMEN LIMITEDon 024 US ABDOMEN LIMITED [...] Alfonso Ramos DO 01/02/24 Final result Normal [facility] US Abdomen limitedon 024 1. Cholecystectomy. 2. Prominent common bile duct measuring 9.7 mm. This likely reflects post cholecystectomy benign biliary ductal ectasia. PN RIS CONSOLIDATED EXAMINATION: RIGHT UPPER QUADRANT ULTRASOUND 01/02/2024 3:13 pm COMPARISON: None. HISTORY: ORDERING SYSTEM PROVIDED HISTORY: RU[facility] abdominal pain TECHNOLOGIST PROVIDED HISTORY: This procedure can be scheduled via [employer]. Specify organ?->LIVER Specify organ?->PANCREAS FINDINGS: LIVER: The liver demonstrates normal echogenicity without evidence of intrahepatic biliary ductal dilatation. Hepatopetal flow portal vein. BILIARY SYSTEM: Cholecystectomy Common bile duct is prominent measuring 9.7 mm. RIGHT KIDNEY: The right kidney is grossly unremarkable without evidence of hydronephrosis. PANCREAS: Visualized portions of the pancreas are unremarkable. OTHER: No evidence of right upper quadrant ascites. MHPN RIS CONSOLIDATED Alfonso Ramos DO - 01/02/2024 EXAMINATION: RIGHT UPPER QUADRANT ULTRASOUND 01/02/2024 3:13 pm COMPARISON: None. HISTORY: ORDERING SYSTEM PROVIDED HISTORY: [facility] abdominal pain TECHNOLOGIST PROVIDED HISTORY: This [...] reflects post cholecystectomy benign biliary ductal ectasia. [facility] Radiology Study observation (narrative) [facility] US Abdomen limitedOrdered By : Alfonso Ramos on 01-02-2024 [facility] Work Phone: Celiac Disease Panelon 12-27 Gliadin Deam Pep IgG <0.4 Normal <7.0 [facility] Comment on above: Result Comment: CELIAC INTERPRETATION <7.0 Negative 7.0-10.0 Equivocal >10.0 Positive units: U/mL Performed By: #### C PBILC, CDP, LIP #### [address] [place] [address] Supervisor Plate Forming: Allison Zavaleta MD #### CELP #### [address] [phone] Supervisor Plate Forming: Zac Servin MD Gliadin Deam Pep IgA 1.1 U/mL Normal <7.0 [facility] Comment on above: Result Comment: CELIAC INTERPRETATION <7.0 Negative 7.0-10.0 Equivocal >10.0 Positive units: U/mL Performed By: #### C PBILC, CDP, LIP #### [address] [place] [address] Supervisor Plate Forming: Allison Zavaleta MD #### CELP #### [address] [phone] Supervisor Plate Forming: Zac Servin MD Tiss Transglutam IgA 0.4 U/mL Normal <7.0 [facility] Comment on above: Result Comment: CELIAC INTERPRETATION <7.0 Negative 7.0-10.0 Equivocal >10.0 Positive units: U/mL Performed By: #### C PBILC, CDP, LIP #### [address] [place] [phone] Supervisor Plate Forming: Allison Zavaleta MD #### CELP #### [address] [phone] Supervisor Plate Forming: Zac Servin MD Celiac Disease Panelon 12-26 IgA [Mass/Vol] 188 mg/dL Normal 70-400 [facility] Comment on above: Performed By: #### C PBILC, CDP, LIP #### [address] [place] [phone] Supervisor Plate Forming: Allison Zavaleta MD #### CELP #### [place] [phone] Supervisor Plate Forming: Zac Servin MD CBC with Diffon 12-26-2023 Abs. Basophil 0.03 k/uL Normal 0.00-0.20 [facility] Comment on above: Performed By: #### C PBILC, CDP, LIP #### [facility] [address] [place] [address] Dr. [place] [phone] Supervisor Plate Forming: Allison Zavaleta MD #### CELP #### [address] [phone] Supervisor Plate Forming: Zac Servin MD Abs.Imm.Granulocyte <0.03 Normal 0.00-0.30 [facility] Comment on above: Performed By: #### C PBILC, CDP, LIP #### [address] [place] [address] Supervisor Plate Forming: Allison Zavaleta MD #### CELP #### [place] [address] [place] [address] Supervisor Plate Forming: Zac Servin MD Abs.Neutrophil (Seg) 4.18 k/uL Normal 1.50-8.10 [facility] Comment on above: Performed By: #### C PBILC, CDP, LIP #### [facility] [address] [place] [address] Dr. [place] [phone] Supervisor Plate Forming: Allison Zavaleta MD #### CELP #### [address] [phone] Supervisor Plate Forming: Zac eSrvin MD Basophils/100 WBC (Bld) 0 % Normal 0-2 [facility] Comment on above: Performed By: #### C PBILC, CDP, LIP #### [address] [place] [phone] Supervisor Plate Forming: Allison Zavaleta MD #### CELP #### [place] [address] [place] [address] Supervisor Plate Forming: Zac Servin MD Eosinophils (Bld) [#/Vol] 0.29 10*3/uL Normal 0.00-0.44 [facility] Comment on above: Performed By: #### C PBILC, CDP, LIP #### [facility] [address] [place] [address] Dr. [place] [phone] Supervisor Plate Forming: Allison Zavaleta MD #### CELP #### [place] [address] [place], [place] [phone] Supervisor Plate Forming: Zac Servin MD Eosinophils/100 WBC (Bld) 4 % Normal 1-4 [facility] Comment on above: Performed By: #### C PBILC, CDP, LIP #### [facility] [address] [place] [address] Dr[place], [place] [phone] Supervisor Plate Forming: Allison Zavaleta MD #### CELP #### [place] [address] [place], [place] [phone] Supervisor Plate Forming: Zac Servin MD Erythrocyte distribution width (RBC) [Ratio] 15.9 % High 11.8-14.4 [facility] Comment on above: Performed By: #### C PBILC, CDP, LIP #### [address] [place] [phone] Supervisor Plate Forming: Allison Zavaleta MD #### CELP #### [address] [phone] Supervisor Plate Forming: Zac Servin MD Hematocrit (Bld) [Volume fraction] 43.5 % Normal 36.3-47.1 [facility] Comment on above: Performed By: #### C PBILC, CDP, LIP #### [address] [place] [phone] Supervisor Plate Forming: Allison Zavaleta MD #### CELP #### [address] [phone] Supervisor Plate Forming: Zac Servin MD Hemoglobin (Bld) [Mass/Vol] 13.4 g/dL Normal 11.9-15.1 [facility] Comment on above: Performed By: #### C PBILC, CDP, LIP #### [address] [place] [phone] Supervisor Plate Forming: Allison Zavaleta MD #### CELP #### [address] [phone] Supervisor Plate Forming: Zac Servin MD Immature granulocytes/100 WBC (Bld) 0 % Normal 0 [facility] Comment on above: Performed By: #### C PBILC, CDP, LIP #### [address] [place] [phone] Supervisor Plate Forming: Allison Zavaleta MD #### CELP #### [place] [address] [place], [place] [phone] Supervisor Plate Forming: Zac Servin MD Lymphocytes (Bld) [#/Vol] 1.87 10*3/uL Normal 1.10-3.70 [facility] Comment on above: Performed By: #### C PBILC, CDP, LIP #### [facility] [address] [place] [address] [place] [phone] Supervisor Plate Forming: Allison Zavaleta MD #### CELP #### [address] [phone] Supervisor Plate Forming: Zac Servin MD Lymphocytes/100 WBC (Bld) 27 % Normal 24-43 [facility] Comment on above: Performed By: #### C PBILC, CDP, LIP #### [facility] [address] [place] [address] [place] [phone] Supervisor Plate Forming: Allison Zavaleta MD #### CELP #### [place] [phone] Supervisor Plate Forming: Zac Servin MD MCH (RBC) [Entitic mass] 25.8 pg Normal 25.2-33.5 [facility] Comment on above: Performed By: #### C PBILC, CDP, LIP #### [facility] [address] [place] [address] [place] [phone] Supervisor Plate Forming: Allison Zavaleta MD #### CELP #### [address] [phone] Supervisor Plate Forming: Zac Servin MD MCHC (RBC) [Mass/Vol] 30.8 g/dL Normal 28.4-34.8 [facility] Comment on above: Performed By: #### C PBILC, CDP, LIP #### [facility] [address] [place] [address] Supervisor Plate Forming: Allison Zavaleta MD #### CELP #### [address] [address] Supervisor Plate Forming: Zac Servin MD MCV (RBC) [Entitic vol] 83.8 fL Normal 82.6-102.9 [facility] Comment on above: Performed By: #### C PBILC, CDP, LIP #### [facility] [address] [place] [address] Dr[place], [place] [phone] Supervisor Plate Forming: Allison Zavaleta MD #### CELP #### [address] [address] Supervisor Plate Forming: Zac Servin MD Monocytes (Bld) [#/Vol] 0.51 10*3/uL Normal 0.10-1.20 [facility] Comment on above: Performed By: #### C PBILC, CDP, LIP #### [address] [place] [phone] Supervisor Plate Forming: Allison Zavaleta MD #### CELP #### [address] [address] Supervisor Plate Forming: Zac Servin MD Monocytes/100 WBC (Bld) 7 % Normal 3-12 [facility] Comment on above: Performed By: #### C PBILC, CDP, LIP #### [address] [place] [phone] Supervisor Plate Forming: Allison Zavaleta MD #### CELP #### [address] [address] Supervisor Plate Forming: Zac Servin MD Neutrophil (Seg) 62 % Normal 36-65 [facility] Comment on above: Performed By: #### C PBILC, CDP, LIP #### [address] [place], [place] [phone] Supervisor Plate Forming: Allison Zavaleta MD #### CELP #### [address] [place], [place] [phone] Supervisor Plate Forming: Zac Servin MD NRBC Automated 0.0 per 100 WBC Normal 0.0 [facility] Comment on above: Performed By: #### C PBILC, CDP, LIP #### [facility] [address] [place] [address] [place] [phone] Supervisor Plate Forming: Allison Zavaleta MD #### CELP #### [address] [address] Supervisor Plate Forming: Zac Servin MD Platelet mean volume (Bld) [Entitic vol] 9.8 fL Normal 8.1-13.5 [facility] Comment on above: Performed By: #### C PBILC, CDP, LIP #### [facility] [address] [place] [address] [place] [phone] Supervisor Plate Forming: Allison Zavaleta MD #### CELP #### [address] [phone] Supervisor Plate Forming: Zac Servin MD Platelets (Bld) [#/Vol] 341 10*3/uL Normal 138-453 [facility] Comment on above: Performed By: #### C PBILC, CDP, LIP #### [facility] [address] [place] [address] [place] [phone] Supervisor Plate Forming: Allison Zavaleta MD #### CELP #### [address] [address] Supervisor Plate Forming: Zac Servin MD RBC (Bld) [#/Vol] 5.19 10*6/uL High 3.95-5.11 [facility] Comment on above: Performed By: #### C PBILC, CDP, LIP #### [facility] [address] [place] [address] [place] [phone] Supervisor Plate Forming: Allison Zavaleta MD #### CELP #### [place] [address] [place] [address] Supervisor Plate Forming: Zac Servin MD WBC (Bld) [#/Vol] 6.9 10*3/uL Normal 3.5-11.3 [facility] Comment on above: Performed By: #### C PBILC, CDP, LIP #### [address] [place], [place] [phone] Supervisor Plate Forming: Allison Zavaleta MD #### CELP #### [address] [address] Supervisor Plate Forming: Zac Servin MD Comp Metab w/Bili Pron 12-25 Albumin [Mass/Vol] 4.3 g/dL Normal 3.5-5.2 [facility] Comment on above: Performed By: #### C PBILC, CDP, LIP #### [address] [place] [phone] Supervisor Plate Forming: Allison Zavaleta MD #### CELP #### [address] [address] Supervisor Plate Forming: Zac Servin MD Albumin/Glob Ratio 1.4 Normal 1.0-2.5 [facility] Comment on above: Performed By: #### C PBILC, CDP, LIP #### [address] [place] [phone] Supervisor Plate Forming: Allison Zavaleta MD #### CELP #### [address] [address] Supervisor Plate Forming: Zac Servin MD Alkaline Phos 91 U/L Normal 35-104 [facility] Comment on above: Performed By: #### C PBILC, CDP, LIP #### [address] [place], [place] [phone] Supervisor Plate Forming: Allison Zavaleta MD #### CELP #### [address] [address] Supervisor Plate Forming: Zac Servin MD ALT [Catalytic activity/Vol] 22 U/L Normal 5-33 [facility] Comment on above: Performed By: #### C PBILC, CDP, LIP #### [facility] [address] [place] [address] [place], [place] [phone] Supervisor Plate Forming: Allison Zavaleta MD #### CELP #### [address] [address] Supervisor Plate Forming: Zac Servin MD Anion gap [Moles/Vol] 10 mmol/L Normal 9-17 [facility] Comment on above: Performed By: #### C PBILC, CDP, LIP #### [facility] [address] [place], [place] [phone] Supervisor Plate Forming: Allison Zavaleta MD #### CELP #### [address] [address] Supervisor Plate Forming: Zac Servin MD AST [Catalytic activity/Vol] 16 U/L Normal <32 [facility] Comment on above: Performed By: #### C PBILC, CDP, LIP #### [facility] [address] [place], [place] [phone] Supervisor Plate Forming: Allison Zavaleta MD #### CELP #### [address] [address] Supervisor Plate Forming: Zac Servin MD Bilirubin [Mass/Vol] 0.3 mg/dL Normal 0.3-1.2 [facility] Comment on above: Performed By: #### C PBILC, CDP, LIP #### [facility] [address] [place], [place] 7903583 Supervisor Plate Forming: Allison Zavaleta MD #### CELP #### [address] [address] Supervisor Plate Forming: Zac Servin MD Bilirubin, Indirect Can not be calculated Normal 0.0-1 .0 [facility] Comment on above: Performed By: #### C PBILC, CDP, LIP #### [facility] [address] [place], [place] [phone] Supervisor Plate Forming: Allison Zavaleta MD #### CELP #### [address] [address] Supervisor Plate Forming: Zca Servin MD Bilirubin.indirect [Mass/Vol] mg/dL Normal <0.3 [facility] Comment on above: Performed By: #### C PBILC, CDP, LIP #### [facility] [address] [place] [address] [place], [place] 1738883 Supervisor Plate Forming: Allison Zavaleta MD #### CELP #### [address] [address] Supervisor Plate Forming: Zac Servin MD Calcium [Mass/Vol] 8.9 mg/dL Normal 8.6-10.4 [facility] Comment on above: Performed By: #### C PBILC, CDP, LIP #### [facility] [address] [place] [address] [place], [place] [phone] Supervisor Plate Forming: Allison Zavaleta MD #### CELP #### [address] [address] Supervisor Plate Forming: Zac Servin MD Chloride [Moles/Vol] 101 mmol/L Normal 98-107 [facility] Comment on above: Performed By: #### C PBILC, CDP, LIP #### [facility] [address] [place] [address] [place], [place] [phone] Supervisor Plate Forming: Allison Zavaleta MD #### CELP #### [address] [address] Supervisor Plate Forming: Zac Servin MD CO2 [Moles/Vol] 27 mmol/L Normal 20-31 [facility] Comment on above: Performed By: #### C NIC MARIANO, LIP #### [facility] [address] [place] [address] Supervisor Plate Forming: Allison Zavaleta MD #### CELP #### [facility] [address] [place], [place] [phone] Supervisor Plate Forming: Zac Servin MD Creatinine [Mass/Vol] 0.7 mg/dL Normal 0.5-0.9 [facility] Comment on above: Performed By: #### C NIC MARIANO, LIP #### [facility] [address] [place] [address] Supervisor Plate Forming: Allison Zavaleta MD #### CELP #### [place] [address] [place], [place] [phone] Supervisor Plate Forming: Zac Servin MD GFR/1.73 sq M.predicted among non-blacks MDRD (S/P/Bld) [Vol rate/Area] mL/min/{1.73_m2} Normal >60 [facility] Comment on above: Result Comment: These results [...] By: #### C NIC MARIANO, LIP #### [facility] [address] [place] [address] Supervisor Plate Forming: Allison Zavaleta MD #### CELP #### [facility] [address] [place] [address] Supervisor Plate Forming: Zac Servin MD Glucose [Mass/Vol] 135 mg/dL High 70-99 [facility] Comment on above: Performed By: #### C PBILC, CDP, LIP #### [facility] [address] [place], [place] [phone] Supervisor Plate Forming: Allison Zavaleta MD #### CELP #### [address] [address] Supervisor Plate Forming: Zac Servin MD Potassium [Moles/Vol] 4.1 mmol/L Normal 3.7-5.3 [facility] Comment on above: Performed By: #### C PBILC, CDP, LIP #### [facility] [address] [place] [address] [place], [place] 6251883 Supervisor Plate Forming: Allison Zavaleta MD #### CELP #### [address] [phone] Supervisor Plate Forming: Zac Servin MD Protein [Mass/Vol] 7.4 g/dL Normal 6.4-8.3 [facility] Comment on above: Performed By: #### C PBILC, CDP, LIP #### [facility] [address] [place] [address] [place], [place] 7400083 Supervisor Plate Forming: Allison Zavaleta MD #### CELP #### [address] [address] Supervisor Plate Forming: Zac Servin MD Sodium [Moles/Vol] 138 mmol/L Normal 135-144 [facility] Comment on above: Performed By: #### C PBILC, CDP, LIP #### [facility] [address] [place], [place] [phone] Supervisor Plate Forming: Allison Zavaleta MD #### CELP #### [address] [address] Supervisor Plate Forming: Zac Servin MD Urea nitrogen [Mass/Vol] 12 mg/dL Normal 6-20 [facility] Comment on above: Performed By: #### C PBILC, CDP, LIP #### [facility] [address] [place], [place] 4392883 Supervisor Plate Forming: Allison Zavaleta MD #### CELP #### [facility] [address] [place], [place] 9038808 Supervisor Plate Forming: Zac Servin MD Lipaseon 12-26-2023 Lipase [Catalytic activity/Vol] 36 U/L Normal 13-60 [facility] Comment on above: Performed By: #### C PBILC, CDP, LIP #### [facility] [address] [place] [address] Supervisor Plate Forming: Allison Zavaleta MD #### CELP #### [facility] [address] [place], [place] 9558808 Supervisor Plate Forming: Zac Servin MD COMPLETE BLOOD COUNTon 12-12 Erythrocyte distribution width (RBC) [Ratio] 18.2 % High 11.5-15.0 [facility] Comment on above: Performed By: #### C LELIA HARRIS, 79106-9, THYR #### [facility] ([id number]) [address], [address] [place] [address] Hematocrit (Bld) [Volume fraction] 42.1 % Normal 35-47 [facility] Comment on above: Performed By: #### Gino HARRIS CMP, 18239-9, THYR #### [facility] ([id number]) [address], [address] [place] [address] Hemoglobin (Bld) [Mass/Vol] 13.6 g/dL Normal 11.7-15.5 [facility] Comment on above: Performed By: #### Gino HARRIS CMP, 78473-3, THYR #### [facility] ([id number]) [address], [address] [place] [address] MCH (RBC) [Entitic mass] 26.3 pg Low 27-34 [facility] Comment on above: Performed By: #### Gino HARRIS CMP, 64224-2, THYR #### [facility] ([id number]) [address], [address] [place] [address] MCHC (RBC) [Mass/Vol] 32.4 g/dL Normal 32-36 [facility] Comment on above: Performed By: #### Gino HARRIS CMP, 95609-4, THYR #### [facility] ([id number]) [address], [address] [place] [address] MCV (RBC) [Entitic vol] 81 fL Normal 80-100 [facility] Comment on above: Performed By: #### Gino HARRIS CMP, 97871-7, THYR #### [facility] [facility] ([id number]) [address], [address] [place] [address] Platelet mean volume (Bld) [Entitic vol] 8.2 fL Normal 7-12 [facility] Comment on above: Performed By: #### Gino HARRIS CMP, 17972-3, THYR #### [facility] ([id number]) [address], [address] [place] [address] Platelets (Bld) [#/Vol] 338 10*3/uL Normal 150-450 [facility] Comment on above: Performed By: #### Gino HARRIS CMP, 89611-9, THYR #### [facility] ([id number]) [address], [address] [place] [address] RBC COUNT 5.19 X10E12/L Normal 3.80-5.20 [facility] Comment on above: Performed By: #### Gino BC, CMP, 34096-1, THYR #### [facility] ([id number]) [address], [address] [place] [address] WBC (Bld) [#/Vol] 7.7 10*3/uL Normal 4.0-11.0 [facility] Comment on above: Performed By: #### Gino HARRIS CMP, 43926-5, THYR #### [facility] ([id number]) [address], [address] [place] [address] COMPREHENSIVE METABOLIC PANE Toribio 12-13-2023 Albumin [Mass/Vol] 4.4 g/dL Normal 3.2-5.3 [facility] Comment on above: Performed By: #### Gino HARRIS, LELIA, 97662-0, THYR #### [facility] ([id number]) [address], [address] [place] [address] ALP [Catalytic activity/Vol] 81 U/L Normal 39-130 [facility] Comment on above: Performed By: #### Gino HARRIS CMP, 75071-3, THYR #### [facility] ([id number]) [address], [address] [place] [address] ALT [Catalytic activity/Vol] 27 U/L Normal 0-31 [facility] Comment on above: Performed By: #### Gino HARRIS CMP, 74153-4, THYR #### [facility] ([id number]) [address], [address] [place] [address] Anion gap [Moles/Vol] 9 mmol/L Normal 5-15 [facility] Comment on above: Performed By: #### Gino HARRIS CMP, 65948-4, THYR #### [facility] ([id number]) [address], [address] [place] [address] AST [Catalytic activity/Vol] 20 U/L Normal 0-41 [facility] Comment on above: Performed By: #### Gino BC CMP, 20271-3, THYR #### [facility] ([id number]) [address], [address] [place] [address] Bilirubin [Mass/Vol] 0.4 mg/dL Normal 0.3-1.2 [facility] Comment on above: Performed By: #### Gino HARRIS CMP, 41317-7, THYR #### [facility] ([id number]) [address], [address] [place] [address] Calcium [Mass/Vol] 9.2 mg/dL Normal 8.5-10.5 [facility] Comment on above: Performed By: #### Gino HARRIS CMP, 73397-5, THYR #### [facility] ([id number]) [address], [facility] [address] [place] [address] Chloride [Moles/Vol] 103 mmol/L Normal 98-109 [facility] Comment on above: Performed By: #### Gino HARRIS CMP, 21100-3, THYR #### [facility] ([id number]) [address], [address] [place] [address] CO2 [Moles/Vol] 26 mmol/L Normal 22-32 [facility] Comment on above: Performed By: #### Gino HARRIS CMP, 57486-2, THYR #### [facility] ([id number]) [address], [address] [place] [address] Creatinine [Mass/Vol] 0.69 mg/dL Normal 0.40-1.00 [facility] Comment on above: Result Comment: METH OD TRACEABLE TO IDMS STANDARD Performed By: #### Gino HARRIS CMP, 38181-6, THYR #### [facility] ([id number]) [address], [address] [place] [address] eGFR (CKD-EPI) NON-RACE DEPENDENT >90 Normal >59 [facility] Comment on above: Result Comment: Reported eGFR is based on the CKD-EPI 2020 equation that does not use a race coefficient. Performed By: #### Gino HARRIS CMP, 60969-9, THYR #### [facility] ([id number]) [address], [address] [place] [address] Glucose [Mass/Vol] 128 mg/dL High 65-99 [facility] Comment on above: Performed By: #### Gino BC, CMP, 25887-3, THYR #### [facility] ([id number]) [address], [address] [place] [address] Potassium [Moles/Vol] 4.2 mmol/L Normal 3.5-5.0 [facility] Comment on above: Performed By: #### Gino BC, CMP, 61352-4, THYR #### [facility] ([id number]) [address], [address] [place] [address] Protein [Mass/Vol] 7.4 g/dL Normal 6.0-8.0 [facility] Comment on above: Performed By: #### Gino HARRIS, CMP, 81594-0, THYR #### [facility] ([id number]) [address], [address] [place] [address] Sodium [Moles/Vol] 138 mmol/L Normal 134-146 [facility] Comment on above: Performed By: #### Gino BC, CMP, 25336-4, THYR #### [facility] ([id number]) [address], [address] [place] [address] Urea nitrogen [Mass/Vol] 10 mg/dL Normal 5-23 [facility] Comment on above: Performed By: #### Gino BC, CMP, 22432-6, THYR #### [facility] ([id number]) [address], [address] [place] [address] Lipid 1996 panelon 4 Cholesterol [Mass/Vol] 137 mg/dL Low 150-200 [facility] Comment on above: Performed By: #### Gino BC, CMP, 22416-2, THYR #### [facility] ([id number]) [address], [address] [place] [address] Cholesterol in HDL [Mass/Vol] 48 mg/dL Normal >39 [facility] Comment on above: Result Comment: HDL <40 mg/dL - High Risk HDL > or = 40mg/dL- Desirable HDL >60 mg/dL - Negative Risk Performed By: #### Gino HARRIS, CMP, 31853-4, THYR #### [facility] ([id number]) [address], [facility] [address] [place] [address] Cholesterol in LDL [Mass/Vol] 62 mg/dL Normal <130 [facility] Comment on above: Result Comment: LDL <100 mg/dL - Desirable LDL >160 mg/dL - High Risk Performed By: #### Gino HARRIS, CMP, 64486-3, THYR #### [facility] ([id number]) [address], [facility] [address] [place] [address] Cholesterol in VLDL [Mass/Vol] 27 mg/dL Normal 0-30 [facility] Comment on above: Performed By: #### Gino HARRIS CMP, 52141-4, THYR #### [facility] ([id number]) [address], [address] [place] [address] CHOLESTEROL:HDL 2.9 Normal 1.0-5.0 [facility] Comment on above: Performed By: #### Gino HARRIS CMP, 24279-3, THYR #### [facility] ([id number]) [address], [facility] [address] [place] [address] Triglyceride [Mass/Vol] 136 mg/dL Normal 27-150 [facility] Comment on above: Performed By: #### Gino HARRIS CMP, 15930-3, THYR #### [facility] ([id number]) [address], [address] [place] [address] THYROID PROFILEon 12-13-2023 Free T4 [Mass/Vol] 1.01 ng/dL Normal 0.61-1.60 [facility] Comment on above: Performed By: #### C BC, [facility], 71997-8, THYR #### [facility] ([id number]) [address] [facility], [address] [place] [address] TSH 1.81 uIU/mL Normal 0.49-4.67 [facility] Comment on above: Performed By: #### C BC, [facility], 76613-5, THYR #### [facility] ([id number]) [address] [facility] [facility], [address] [place] [address] XR CHEST 2 VWSon 12-13-2023 XR CHEST [...] Rogers MD on 12/13/2023 2:14 PM Normal [facility] H PYLORI SCREENon 11-20-2023 H. pylori Org specific cx Ql (Ashwini fld) Negative Normal NEG [facility] Comment on above: Performed By: #### 4 4015-6 #### [facility] ([id number]) [address], [address] [place] [address] Surgical Pathologyon 024 Surgical Pathology Normal [facility] Comment on above: Result Comment: [facility] [employer] [facility] [address] [place] [address] Surgical Pathology Consultation Patient Name:RAYA GONZALES:1980 (Age: 43)Gender:FTaken:4Reported:11/22/2023hysician(s):Marlon Tillman D.O. ([phone])Copy To: Rec. #:[id number]: #[id number] Final Pathologic Diagnosis 1. Duodenal biopsies: Normal [...] and hyperplastic polyps. Report Electronically Signed Out [facility]/11/22/2023Froylan Sahu M.D. Interpretation performed at [facility], [address] [place] [address], License number: [id number]. Clinical History GERD/rectal bleed. 4. Snared a polyp. 5. Snared a polyp. 6. Snared polyps x3. Gross Description 1. Received in formalin labeled IOTA, duodenum BX are two light robles soft tissue bits, 0.2 cm each. The specimen is filtered and entirely submitted in a single cassette. (1, ns, [id number],m8) DM. 2. Received in formalin labeled IOTA, antrum BX are two light robles soft tissue bits, 0.3 and 0.4 cm. The specimen is filtered and entirely submitted in a single cassette. (1, ns, [id number],m8) DM. 3. Received in formalin labeled IOTA, distal esophagus BX are four light robles soft tissue bits, 0.1-0.2 cm. The specimen is filtered and entirely submitted in a single cassette. (1, ns, [id number],m8) DM. 4. Received in formalin labeled VINNY, hepatic flexure polyp are four light robles feathery soft tissue bits, 0.1-0.5 cm. The specimen is filtered and entirely submitted in a single cassette. (1, ns, [id number],m8) DM. 5. Received in formalin labeled VINNY, descending colon polyp are two light robles soft tissue bits, 0.1 and 0.6 cm. The specimen is filtered and entirely submitted in a single cassette. (1, ns, [id number],m8) DM. 6. Received in formalin labeled VINNY, sigmoid colon polyp are five light robles soft tissue bits, 0.2-0.4 cm. The specimen is filtered and entirely submitted in a single cassette. (1, ns, [id number],m8) DM. dm/11/21/2023NSK Specimen(s) Received 1: Duodenum biopsy 2: Antrum biopsy 3: Distal esophageal biopsy 4: Hepatic flexure polyp 5: Descending colon polyp 6: Sigmoid colon polyp Fee Codes(s): 1; 58094 2; 42899 3; 00739, 3126F 4; 80535 5; 06945 6; 25997 Nitesh 02-01-2022 [place]ER[place] Telephone (RAJANI) RAYA GONZALES ([id number]) 1980 F Date Time Provider Department 02/01/22 [...] Encounter Status:Closed by [facility] ARCE on 02/10/22 [facility] ERRONEOUSENCon 02-01-2022 ERRONEOUSENC [id number] Tia Gonzales 1980 F * Clinical document posted in Error * Encounter Type Conversion History User Instant Changed From Changed To MARY WALDEN Moon Feb 10, 2022 3* Telephone Erroneous* [facility] Vital Signs Date Time Vital Sign Value Performing Clinician Facility 10-08-2024 14:16-0400 Body height 162.6 cm Elvi Chapman MD Work Phone: [facility] 10-08-2024 14:16-0400 Body mass index (BMI) [Ratio] 45.76 kg/m2 Elvi Chapman MD Work Phone: [facility] 10-08-2024 14:16-0400 Body weight 120.93 kg Elvi Chapman MD Work Phone: [facility] 10-08-2024 14:16-0400 Diastolic blood pressure 84 mm[Hg] Elvi Chapman MD Work Phone: [facility] 10-08-2024 14:16-0400 Systolic blood pressure 132 mm[Hg] Elvi Chapman MD Work Phone: [facility] 09-03-2024 13:36-0500 Body height 162.6 cm Pmh 1 [facility] 09-03-2024 13:36-0500 Body mass index (BMI) [Ratio] 45.32 kg/m2 [facility] 1 [facility] 09-03-2024 13:36-0500 Body weight 119.75 kg Pmh 1 [facility] 07-30-2024 13:03-0500 Body height 162.6 cm Elvi Chapman MD Work Phone: [facility] 07-30-2024 13:03-0500 Body mass index (BMI) [Ratio] 46.59 kg/m2 Elvi Chapman MD Work Phone: [facility] 07-30-2024 13:03-0500 Body weight 123.11 kg Elvi Chapman MD Work Phone: [facility] 07-30-2024 13:03-0500 Diastolic blood pressure 102 mm[Hg] Elvi Chapman MD Work Phone: [facility] 07-30-2024 13:03-0500 Systolic blood pressure 158 mm[Hg] Elvi Chapman MD Work Phone: [facility] 11-17-2023 13:49-0400 Body height 162.6 cm Yojana Abbasi MD PhD Work Phone: [facility] 11-17-2023 13:49-0400 Body mass index (BMI) [Ratio] 47.89 kg/m2 Yojana Abbasi MD PhD Work Phone: [facility] 11-17-2023 13:49-0400 Body weight 126.55 kg Yojana Abbasi MD PhD Work Phone: [facility] 11-17-2023 13:49-0400 Diastolic blood pressure 88 mm[Hg] Yojana Abbasi MD PhD Work Phone: [facility] 11-17-2023 13:49-0400 Heart rate 90 /min Yojana Abbasi MD PhD Work Phone: [facility] 11-17-2023 13:49-0400 Respiratory rate 20 /min Yojana Abbasi MD PhD Work Phone: [facility] 11-17-2023 13:49-0400 Systolic blood pressure 138 mm[Hg] Yojana Abbasi MD PhD Work Phone: [facility] Encounters Encounter Date Encounter Type Care Provider Facility Start: 10-18-2024 End: 10-18-[address] [facility] Start: 10-08-2024 End: 10-08-2024 Office outpatient visit 15 minutes Elvi Chapman MD Work Phone: [facility] Comment on above: DUB (dysfunctional u terine bleeding) (Primary Dx) Start: 10-08-2024 End: 10-08-2024 ambulatory [facility] Start: 09-09-2024 End: 09-09-2024 Evaluation and management of inpatient [facility] Start: 09-09-2024 End: 09-09-2024 Evaluation and management of inpatient [facility] Start: 09-03-2024 End: 09-03-2024 Patient encounter procedure [facility] Pre-Admission Testing 1 [facility] - Pre Admit Comment on above: Preop examination (P rimary Dx); Obesity, morbid, BMI 40.0-49.9 (CMS-HCC); Asthma, unspecified asthma severity, unspecified whether complicated, unspecified whether persistent Start: 09-03-2024 End: 09-03-2024 Preprocedural examination done [address] Start: 09-03-2024 End: 09-03-2024 [facility] Start: 09-03-2024 Encounter for other preprocedural examination [facility] Start: 08-05-2024 End: 08-05-2024 Telephone encounter Elvi Chapman MD Work Phone: [facility] Start: 07-30-2024 End: 07-30-2024 Office outpatient visit 15 minutes Elvi Chapman MD Work Phone: [facility] Comment on above: DUB (dysfunctional u terine bleeding) (Primary Dx) Start: 07-30-2024 End: 08-01-2024 ambulatory [facility] Start: 07-15-2024 End: 07-15-2024 ambulatory [facility] Start: 07-15-2024 End: 07-15-2024 ambulatory [facility] Start: 07-09-2024 End: 07-09-2024 ambulatory [facility] Start: 06-24-2024 End: 06-24-2024 ambulatory [facility] Start: 06-21-2024 End: 06-21-2024 Emergency department patient visit [facility] Start: 06-19-2024 End: 06-19-2024 ambulatory [facility] Start: 06-19-2024 Encounter for gynecological examination (general) (routine) without abnormal [facility] Start: 06-19-2024 End: 06-19-2024 ambulatory [facility] Start: 06-19-2024 Encounter for gynecological examination (general) (routine) without abnormal findings [facility] Start: 06-17-2024 End: 06-17-2024 ambulatory [facility] Start: 06-12-2024 End: 06-12-2024 ambulatory [facility] Start: 06-12-2024 End: 06-12-2024 ambulatory [facility] Start: 05-31-2024 End: 05-31-2024 ambulatory [facility] Start: 03-05-2024 End: 03-05-2024 ambulatory [facility] Start: 02-27-2024 End: 02-27-2024 ambulatory [facility] Start: 01-30-2024 End: 01-31-2024 Emergency department patient visit [facility] Start: 01-30-2024 End: 01-30-2024 Emergency department patient visit [facility] Start: 01-30-2024 End: 01-31-2024 Emergency department patient visit [facility] Start: 01-26-2024 End: 01-26-2024 ambulatory ANDRES DUP[facility] Start: 01-23-2024 End: 01-23-2024 ambulatory [facility] Start: 01-03-2024 End: 01-04-2024 Emergency department patient visit CHARLIE YOUNG [facility] Start: 01-02-2024 End: 01-04-2024 [facility] Start: 01-02-2024 End: 01-04-2024 Subsequent hospital visit by physician [facility] Ul[facility]ound [facility] Comment on above: RUQ abdominal pain Start: 12-26-2023 End: 12-26-2023 ambulatory [facility] Start: 12-14-2023 End: 12-14-2023 ambulatory OFELIA TERRAZAS [facility] Start: 12-13-2023 End: 12-13-2023 ambulatory [facility] Start: 11-21-2023 End: 11-21-2023 Evaluation and management of inpatient LILY SNELL [facility] Start: 11-20-2023 End: 11-21-2023 Evaluation and management of inpatient MARLON TILLMAN [facility] Start: 11-17-2023 End: 11-18-2023 ambulatory [facility] Start: 11-17-2023 End: 11-17-2023 Office outpatient new 60 minutes Yojana Abbasi MD PhD Work Phone: [facility] Comment on above: Polyneuropathy (Prim rbianna Dx); Vertigo; Balance problem; Cataract of right eye, unspecified cataract type; Multiple sclerosis (Multi) Start: 11-14-2023 End: 11-14-2023 ambulatory [facility] Start: 11-01-2023 End: 11-01-2023 ambulatory THAIS Shauna MARLEY [facility] Procedures Date Procedure Procedure Detail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 lenses for surgery- glasses are okay if needed. 14. The anesthesiologist will talk with you the day of surgery and will ask you to sign a Consent Form. 15. Refrain from smoking or any type of tobacco use for at least 8 hours and marijuana for 24 hours prior to arrival for your surgery. 16. If a GREEN BLOOD band is given to you, please bring it with you for the day of surgery. 17. Notify your surgeon if you develop any illness before your surgery. 18. If you are staying overnight, please DO NOT BRING your home medications with you. 19. If you have any questions prior to surgery, please call the Preadmission Testing office at [phone], Mon.-Fri. 7 a.m.-3 p.m. Leave a voicemail if needed. Pre-Surgery Instructions: Medication Instructions albuterol (PROVENTIL HFA;VENTOLIN HFA) 90 mcg/actuation inhaler Take morning of procedure if needed diazePAM (VALIUM) 5 mg tablet Stop taking 0 days prior to procedure famotidine (PEPCID) 20 mg tablet Take morning of procedure mometasone-formoterol (DULERA) 200-5 mcg/actuation inhaler Take morning of procedure omeprazole (PriLOSEC) 40 mg capsule Take morning of procedure ondansetron (ZOFRAN) 8 mg tablet Stop taking 0 days prior to procedure PREPARATION H 0.25-14-74.9 % ointment Stop taking 0 days prior to procedure PROCHAMBER spacer Stop taking 0 days prior to procedure REGULOID, PSYLLIUM HUSK, 0.4 gram capsule Stop taking 0 days prior to procedure umeclidinium (INCRUSE ELLIPTA) 62.5 mcg/actuation blister with device Take morning of procedure How to Avoid an Infection after Your Surgery Your doctor will give you specific instructions, but remember: -ALWAYS wash hands before caring for your catheter and/or after using the restroom. -ALWAYS wipe from front to back. -No make creams, lotion, powder, rubbing alcohol or hydrogen peroxide on surgical area (can harm the tissue and slow healing). -Your doctor will give you specific instructions for what type of dressing or equipment you will need and how often it will need changed for infection purposes. -Do not allow anyone to touch your surgical area unless they are cleaning, checking, or redressing it (be sure they wash their hands first). -No contact of your surgical area with pets or pet hair; avoid sleeping with pets. -Take full course of antibiotic if prescribed for you after surgery- do not stop unless directed to by your physician. You may also be given an antibiotic prior to your surgery to help prevent surgical site infections. -Eat a healthy and varied diet including proteins, fruits, and vegetables to help promote wound healing and keep blood sugars under control if you are diabetic. -Smoking slows the healing process by decreasing the amount of oxygen in your blood that is needed for tissue healing. Try to avoid or stop smoking if possible. CALL your doctor if you notice any of the following: -Increased redness or hardening around the surgical area. -Increased pain or increased blood in your urine. -If urine becomes increasingly cloudy, you notice sediment or particles in your urine, or you notice a foul odor or yellow or green discharge. -Fever higher than 101 degrees Fahrenheit for more than 4 hours. If you have a question, call your doctor s office. Go to the follow-up appointment with your doctor. Surgical instructions reviewed. Patient verbalized understanding. documented in this encounter [facility] 09-03-2024 Nurse Note Preoperative Education Checklist- General Surgery date: 09/09/24 Surgery time: 1:30 p.m. Arrival time: 11:30 a.m. 1. Bring a photo ID and your insurance card with you the day of surgery. You will check in at the main lobby of the [facility]- registration desk is straight ahead as soon as you walk in. Tell them you are here for surgery. 2. If you have a Living Will/Durable Power of Block Saw Operator for Health Care that is not on file here, please bring a copy the day of surgery. 3. Please shower/bathe the night before surgery with the provided soap or wipes. Do not shower the morning of surgery- you will do use wipes when you arrive here at the hospital before getting into your surgical gown. Do not shave the area of your procedure for 2 days prior to your surgery. 4. NO powder, lotion, perfume/cologne, aftershave, make-up, deodorant, or hair products after you have bathed. 5. NO nail singaporean/acrylic on at least one finger. If you are having a hand, wrist or foot surgery then all nail singaporean and artificial/acrylic nails must be removed from that hand or foot. 6. Avoid ALL Aspirin and non-steroidal anti-inflammatory drugs and certain vitamins (Ibuprofen, Advil, Aleve, Excedrin, Meloxicam, Celebrex, fish/krill oil, etc.) for 7 days prior to surgery as instructed by your surgeon and/or your prescribing doctor. Tylenol IS ALLOWED. If you are on Ticlid, Xarelto, Eliquis, Pradaxa, Plavix or Coumadin, please check with your prescribing doctor for instructions for when to stop them. 7. If you use an inhaler, continue to use it routinely. 8. Nothing to eat or drink (not even water, gum, mints, or hard candy!) AFTER midnight prior to your surgery. 9. Take only medications that you are instructed to on the morning of surgery with a TINY SIP OF WATER. 10. Choose a responsible adult that will be able to drive you home when you are discharged from your hospital stay for your surgery and can stay with you in your home for 24 hours after your procedure. You must NOT drive any vehicle or operate any machinery for 24 hours after surgery. 11. When you dress for your appointment, please wear loose fitting clothing that is appropriate to accommodate your surgical area procedure. BRING WITH YOU ANY DEVICES YOU MAY NEED: GIOVANY hose, ice machine, sling/swath, brace or special shoe, oversized zip-up or button up shirt, CPAP machine if staying overnight. 12. Do NOT wear jewelry, watches, or any piercings or metal for surgery- leave these valuables and money at home. 13. Do NOT wear contact lenses for surgery- glasses are okay if needed. 14. The anesthesiologist will talk with you the day of surgery and will ask you to sign a Consent Form. 15. Refrain from smoking or any type of tobacco use for at least 8 hours and marijuana for 24 hours prior to arrival for your surgery. 16. If a GREEN BLOOD band is given to you, please bring it with you for the day of surgery. 17. Notify your surgeon if you develop any illness before your surgery. 18. If you are staying overnight, please DO NOT BRING your home medications with you. 19. If you have any questions prior to surgery, please call the Preadmission Testing office at [phone], Mon.-Fri. 7 a.m.-3 p.m. Leave a voicemail if needed. Pre-Surgery Instructions: Medication Instructions albuterol (PROVENTIL HFA;VENTOLIN HFA) 90 mcg/actuation inhaler Take morning of procedure if needed diazePAM (VALIUM) 5 mg tablet Stop taking 0 days prior to procedure famotidine (PEPCID) 20 mg tablet Take morning of procedure mometasone-formoterol (DULERA) 200-5 mcg/actuation inhaler Take morning of procedure omeprazole (PriLOSEC) 40 mg capsule Take morning of procedure ondansetron (ZOFRAN) 8 mg tablet Stop taking 0 days prior to procedure PREPARATION H 0.25-14-74.9 % ointment Stop taking 0 days prior to procedure PROCHAMBER spacer Stop taking 0 days prior to procedure REGULOID, PSYLLIUM HUSK, 0.4 gram capsule Stop taking 0 days prior to procedure umeclidinium (INCRUSE ELLIPTA) 62.5 mcg/actuation blister with device Take morning of procedure How to Avoid an Infection after Your Surgery Your doctor will give you specific instructions, but remember: -ALWAYS wash hands before caring for your catheter and/or after using the restroom. -ALWAYS wipe from front to back. -No make creams, lotion, powder, rubbing alcohol or hydrogen peroxide on surgical area (can harm the tissue and slow healing). -Your doctor will give you specific instructions for what type of dressing or equipment you will need and how often it will need changed for infection purposes. -Do not allow anyone to touch your surgical area unless they are cleaning, checking, or redressing it (be sure they wash their hands first). -No contact of your surgical area with pets or pet hair; avoid sleeping with pets. -Take full course of antibiotic if prescribed for you after surgery- do not stop unless directed to by your physician. You may also be given an antibiotic prior to your surgery to help prevent surgical site infections. -Eat a healthy and varied diet including proteins, fruits, and vegetables to help promote wound healing and keep blood sugars under control if you are diabetic. -Smoking slows the healing process by decreasing the amount of oxygen in your blood that is needed for tissue healing. Try to avoid or stop smoking if possible. CALL your doctor if you notice any of the following: -Increased redness or hardening around the surgical area. -Increased pain or increased blood in your urine. -If urine becomes increasingly cloudy, you notice sediment or particles in your urine, or you notice a foul odor or yellow or green discharge. -Fever higher than 101 degrees Fahrenheit for more than 4 hours. If you have a question, call your doctor s office. Go to the follow-up appointment with your doctor. [facility] 09-03-2024 Nurse Note Surgical instructions reviewed. Patient verbalized understanding. [facility] 08-05-2024 Miscellaneous Notes Patient scheduled for surgery with Dr. Chapman on 09/09/24 at 1:30pm with hospital arrival of 11:30am. PAT scheduled on 08/20/24 at 1:30pm. Patient notified of all dates and times and letter mailed. documented in this encounter [facility] 08-05-2024 Telephone encounter Note Patient scheduled for surgery with Dr. Chapman on 09/09/24 at 1:30pm with hospital arrival of 11:30am. PAT scheduled on 08/20/24 at 1:30pm. Patient notified of all dates and times and letter mailed. [facility] 07-30-2024 History of Present illness Narrative [...] 11/20/2023 Performed by Marlon Tillman DO at [facility] ERCP N/A 11/18/2020 Performed by Mac Card MD at [facility] ER[facility] 10/08/[address] Valadez N/A 10/08/2020 Performed by August Valadez MD at [facility] ESOPHAGOGASTRODUODENOSCOPY 10/08/2020 Performed by August Valadez MD at [facility] ESOPHAGOGASTRODUODENOSCOPY DIAGNOSTIC N/A 11/20/2023 Performed by Marlon Tillman DO at [facility] LAPAROSCOPIC CHOLECYSTECTOMY N/A 09/26/2020 Performed by Rommel Nunez MD at [facility] LAPAROSCOPY DIAGNOSTIC N/A 11/21/2020 Performed by Rei Hernandez MD at [facility] OPEN COMMON DUCT EXPLORATION N/A 11/21/2020 Performed by Rei Hernandez MD at [facility] TUBAL LIGATION FAMILY HX Family History [...] CONSENT SIGNED AND ON CHART. MD Sofi CHEEK RN Emma Leis 07/30/24 1342 Regine Mcnair 07/30/24 1346 documented in this encounter [facility] 11-17-2023 History of Present illness Narrative Subjective Raya Gonzaels is a 43 y.o. year old right [...] Not Currently Not currently working. Lives with jason. Lives in [place], [place]. Feels safe at home. Not on [...] Flex 5 5 Wrist Ext 5 5 Pig Breeder 5 5 Thumb abd 5 5 Hip [...] hudson bilaterally. COORDINATION: In both upper extremities, ubcyzb-[id number]-[id number] was intact without dysmetria or overshoot. In both lower extremities, qcda-cb-lity was intact. On rapid alternating movements, movements [...] decreased pinprick to mid forearm and mid husdon bilaterally with decreased proprioception in toes and [...] in this encounter. Associated attestation - Yojana Abbasi MD PhD - 11/17/2023 8:46 PM EDT I have seen and evaluated the patient with Dr. Cameron, I agree with the assessment and plan, which were formulated with my direct input. Advised patient to go to the ER if worsening breathing. documented in this encounter [facility] Work Phone: 11-17-2023 Instructions Maribell Cameron MD - 11/17/2023 1:30 PM EDT Dear Raya Gonzales, You were seen today by Dr. Abbasi and Dr. Cameron for evaluation of pain [...] in clinic. We wish you all the best, [facility] Neurology Team The following attachments cannot be sent through Care Everywhere.Peripheral Neuropathy (Sammarinese)documented in this encounter [facility] Work Phone: Evaluation note Diagnosis Polyneuropathy- Primary Unspecified hereditary and idiopathic peripheral neuropathy Vertigo Dizziness and giddiness Balance problem Abnormality of gait Cataract of right eye, unspecified cataract type Multiple sclerosis (Multi) Multiple sclerosis documented in this encounter [facility] Work Phone: Evaluation note* Diagnosis RUQ abdominal pain Abdominal pain, right upper quadrant [facility] Diagnosis DUB (dysfunctional uterine bleeding)- Primary Other disorder of menstruation and other abnormal bleeding from female genital tract [facility] Preop examination- Primary Unspecified pre-operative examination Obesity, morbid, BMI 40.0-49.9 ([facility]) Asthma, unspecified asthma severity, unspecified whether complicated, unspecified whether persistent Preop examination Unspecified pre-operative examination Obesity, morbid, BMI 40.0-49.9 ([facility]) Asthma, unspecified asthma severity, unspecified whether complicated, unspecified whether persistent [facility] filedocumented in this encounter [facility]ructionsNot on filedocumented in this encounter [facility] SystemReason for referral (narrative)* Consultation (Routine) - Authorized Specialty Diagnoses / Procedures Referred By Tara t Referred To Contact Ophthalmology Diagnoses Cataract of right eye, unspecified [place] [id number] [place] [address] Referral ID Status Reason Start Date Expiration Date Visits Requested Visits Authorized [id number] Authorized Specialty Services Required 11/17/2023 11/16/2024 1 1 * Medications - Pending Review Specialty Diagnoses / Procedures Referred By Tara short Referred To Contact Diagnoses [place] [address] Department of Neurology/[place] [address] Referral ID Status Reason Start Date Expiration Date V isits Requested Visits Authorized [id number] Pending Review 1 1 * Imaging (Routine) - Pending Review Specialty Diagnoses / Procedures Referred By Tara short Referred To Contact Radiology Diagnoses Polyneuropathy Vertigo Balance problem Procedures MR brain w and wo IV [place] PhD [id number] [place] [address] Referral ID Status Reason Start Date Expiration Date Visits Requested Visits Authorized [id number] Pending Review Perform Procedure 11/17/2023 11/16/2024 1 1 [facility] Work Phone: Summary Purpose Family History No Family History Records FoundNo Family History Records FoundNo Family History Records FoundNo Family History Records FoundNo Family History Records FoundNo Family History Records Found Advance Directives No Advanced Directives Records Found Date Activated Date Inactivated Comments 11/16/2020 5:42 [...] Referral Specialty Diagnoses / Procedures Referred By Contac t Referred To Contact Radiology Diagnoses RUQ abdominal pain Procedures US ABDOMEN LIMITED Adeline Florentino, NUCLEAR MEDICAL TECH - ZINC PLATING MACHINE OPERATOR [address] [address] Referral ID Status Reason Start Date Expiration Date Visits Re quested Visits Authorized [id number] Open 12/26/2023 12/25/2024 1 1 Additional Source Comments INFORMATION SOURCE (unrecogn ized section and content) DATE CREATED AUTHOR 02/17/2022 [facility]ter DATE CREATED AUTHOR AUTHOR'S ORGANIZ ATION 11/21/2023 [facility] DATE CREATED AUTHOR AUTHOR'S ORGANIZ ATION 01/27/2024 [facility] DATE CREATED AUTHOR AUTHOR'S ORGANIZ ATION 06/15/2024 [facility] DATE CREATED AUTHOR AUTHOR'S ORGANIZ ATION 10/11/2024 [facility] DATE CREATED AUTHOR AUTHOR'S ORGANIZ ATION 10/20/2024 [facility] Reason for Visit (unrecogniz ed section and content) Reason Comments Consult MULTIPLE SCLEROSIS Specialty Diagnoses / Procedures Referred By Contac t Referred To Contact Radiology Diagnoses RUQ abdominal pain Procedures US ABDOMEN LIMITED Adeline Florentino, NUCLEAR MEDICAL TECH - ZINC PLATING MACHINE OPERATOR [address] [address] Referral ID Status Reason Start Date Expiration Date Visits Re quested Visits Authorized [id number] Open 12/26/2023 12/25/2024 1 1 Reason Comments Follow-up Reason Comments Post-op Care Teams (unrecognized sec tion and content) [address] [employer] Relationship Specialty Start Date End Date Seven Bowden APRN - CAGE SUPERVISOR [address] [place] [address] PCP - General Nurse Practitioner 12/26/[address] Relationship Specialty Start Date End Date Seven Bowden APRN-TRAINING DEVELOPMENT SPECIALIST [address] [place] [address] [id number] PCP - General Family Medicine 10/09/[address] Relationship Specialty Start Date End Date Seven Bowden APRN-[facility] [address] [place] [address] PCP - General [facility] 10/09/[address] Relationship Specialty Start Date End Date Seven Bowden APRN-TRAINING DEVELOPMENT SPECIALIST [address] [place] [address] PCP - General Family [facility] 10/09/23 FOR RECORDS PERTAINING TO PATIENTS WHO ARE [...] BE BASED ON THE PRIMARY CLINICAL RECORDS. [facility] [employer] [facility]. provides no warranty or guarantee of the accuracy or completeness of information in this document.
--- NOTE | 2024-10-20 16:42 | ED.GENADUL1 ---
Documented by User: Benigno Aragon MD 10/20/24 16:44 HPI HPI - General Adult General Chief complaint: Abdominal Pain Stated complaint: ABDOMINAL PAIN Time Seen by Provider: 10/20/24 16:26 Source: patient Mode of arrival: walk-in History of Present Illness HPI narrative: 44-year-old female presents for abdominal pain. She has been having this pain in the right upper part of her abdomen continuously for a week. She always has diarrhea and she always has a small amount of blood in her stool from some hemorrhoids. She is also had vaginal bleeding for about a month but that is already being addressed. No trauma or fever or constipation. She has not been vomiting. She states she had pain similar to this when she had pancreatitis about 4 years ago after having her gallbladder taken out. The pain is moderate to severe and continuous. Related Data Home Medications ?Medication ?Instructions ?Recorded ?Confirmed metformin 500 mg tablet,extended 500 mg PO DAILY 08/08/24 10/20/24 release 24 hr omeprazole 40 mg capsule,delayed 40 mg PO BID 08/08/24 10/20/24 release ondansetron 8 mg disintegrating 8 mg PO BID PRN nausea and vomiting 10/20/24 10/20/24 tablet Previous Rx's ?Medication ?Instructions ?Recorded dicyclomine 20 mg tablet 20 mg PO QID PRN abdominal pain 07/10/23 #12 tabs Allergies Allergy/AdvReac Type Severity Reaction Status Date / Time promethazine (From Phenergan) Allergy Severe Confusion Verified 08/12/24 07:29 Opioid HPI Opioid Management Most Recent Opioid Data: Last Pain Scale 7 07/10/23 15:59 07/10/23 Last MAR Pain Assessment 10/20/24 17:44 Review of Systems ROS Narrative A ten point review of systems is negative except as noted above. PFSH PFSH Social History Smoking status: Current every day smoker Little interest or pleasure in doing things: not at all Feeling down, depressed, or hopeless: not at all Exam Narrative Exam Narrative: Nurses note and vital signs reviewed and patient is not hypoxic. General: The patient appears mildly uncomfortable. Skin: Warm, dry, no pallor noted. There is no rash noted. Head: Normocephalic, atraumatic Eye: Normal conjunctiva, no drainage Ears, Nose, Mouth, and Throat: oral mucosa is moist. Nares patent. Cardiovascular: Regular Rate and Rhythm Respiratory: Patient is in no distress, no accessory muscle use, lungs are clear to auscultation, no wheezing, rales or rhonchi Back: non-tender GI: Obese and nondistended. No masses. Tenderness present in the right upper quadrant. Musculoskeletal: The patient has no evidence of calf tenderness, no pitting edema, symmetrical pulses noted bilaterally Neurological: A&O, normal speech Psychiatric: Cooperative Constitutional Vital Signs, click to edit/add: Last Vital Signs Temp 97.7 F 10/20/24 16:25 Pulse 74 10/20/24 22:07 Resp 18 10/20/24 22:07 BP 142/87 H 10/20/24 22:07 Pulse Ox 100 10/20/24 22:07 O2 Del Method Room Air 10/20/24 22:07 Course Vital Signs Vital signs: Vital Signs Temperature 97.7 F 10/20/24 16:25 Pulse Rate 96 H 10/20/24 16:25 Respiratory Rate 20 10/20/24 16:25 Blood Pressure 134/100 H 10/20/24 16:25 Pulse Oximetry 99 10/20/24 16:25 Oxygen Delivery Method Room Air 10/20/24 16:25 Temperature 97.7 F 10/20/24 16:25 Pulse Rate 74 10/20/24 22:07 Respiratory Rate 18 10/20/24 22:07 Blood Pressure 142/87 H 10/20/24 22:07 Pulse Oximetry 100 10/20/24 22:07 Oxygen Delivery Method Room Air 10/20/24 22:07 Medical Decision Making Lab Data Labs: Lab Results 10/20/24 10/20/24 Range/Units 16:32 16:54 WBC 8.7 (4.0-11.0) 10^3/uL RBC 5.23 (4.20-5.40) 10^6/uL Hgb 12.0 (12.0-16.0) g/dL Hct 39.5 (36.0-48.0) % MCV 75.5 L (81.0-99.0) fL MCH 22.9 L (26.7-34.0) pg MCHC 30.4 (29.9-35.2) g/dL RDW 16.9 H (11.0-15.0) % Plt Count 415 (150-450) 10^3/uL MPV 8.9 L (9.5-13.5) fL Neut % (Auto) 71.7 (43.0-75.0) % Lymph % (Auto) 20.2 L (20.5-60.0) % [place] % (Auto) 4.6 (1.7-12.0) % Eos % (Auto) 2.8 (0.9-7.0) % Baso % (Auto) 0.5 (0.2-2.0) % Neut # (Auto) 6.3 (1.4-6.5) 10^3/uL Lymph # (Auto) 1.8 (1.2-3.8) 10^3/uL [place] # (Auto) 0.4 (0.3-0.8) 10^3/uL Eos # (Auto) 0.2 (0.0-0.7) 10^3/uL Baso # (Auto) 0.0 (0.0-0.1) 10^3/uL Abs Immat Gran (auto) 0.02 (0.00-0.03) 10^3/uL Imm/Tot Granulo (auto) 0.2 (0.0-0.5) % Sodium 139 (136-145) mmol/L Potassium 4.0 (3.5-5.1) mmol/L Chloride 102 (98-107) mmol/L Carbon Dioxide 23.0 (21.0-32.0) mmol/L Anion Gap 18.0 BUN 9.0 (7.0-18.0) mg/dL Creatinine 0.81 (0.55-1.02) mg/dL Est GFR ( Amer) >60 (>=60 mL/min/1.73m^2) Est GFR (Non-Af Amer) >60 (>=60 mL/min/1.73m^2) BUN/Creatinine Ratio 11.1 Glucose 143 H (74-106) mg/dL Calcium 9.1 (8.5-10.1) mg/dL Total Bilirubin 0.2 (0.2-1.0) mg/dL Direct Bilirubin 0.1 (0.0-0.2) mg/dL AST 17 (15-37) U/L ALT 39 (14-59) U/L Alkaline Phosphatase 88 (46-116) U/L Total Protein 8.0 (6.4-8.2) g/dL Albumin 3.9 (3.4-5.0) g/dL Globulin 4.1 g/dL Albumin/Globulin Ratio 1.0 Amylase 48 (25-115) U/L Lipase 63.0 (16.0-77.0) U/L Urine Color Lt. yellow (YELLOW) Urine Clarity Clear (CLEAR) Urine pH 6.0 (5.0-9.0) Ur Specific [facility] <=1.005 A (1.005-1.025) Urine Protein Negative (NEG/TRACE) mg/dL Urine Glucose (UA) Negative (NEGATIVE) mg/dL Urine Ketones Negative (NEGATIVE) mg/dL Urine Occult Blood Small A (NEGATIVE) Urine Nitrite Negative (NEGATIVE) Urine Bilirubin Negative (NEGATIVE) Urine Urobilinogen 0.2 (0.2-1.0) EU/dL Ur Leukocyte Esterase Negative (NEGATIVE) Urine RBC 0-2 (0-2) #/HPF Urine WBC 0-2 A (NONE SEEN) #/HPF Ur Squamous Epith Cells Rare (NONE/RARE) #/LPF Urine Crystals None seen (None Seen) #/HPF Urine Bacteria Trace A (NONE SEEN) #/HPF Urine Casts None seen (NONE SEEN) #/LPF Urine Mucus None seen (NONE SEEN) Ur Culture Indicated? No Urine HCG, Qual Negative (NEGATIVE) Discharge Plan Discharge Chief Complaint: Abdominal Pain Clinical Impression: Abdominal pain Patient Disposition: Home, Self-Care Prescriptions / Home Meds: No Action dicyclomine 20 mg tablet 20 mg PO QID PRN (Reason: abdominal pain) Qty: 12 0RF metformin 500 mg tablet extended release 24 hr 500 mg PO DAILY omeprazole 40 mg capsule,delayed release(DR/EC) 40 mg PO BID ondansetron 8 mg tablet,disintegrating 8 mg PO BID PRN (Reason: nausea and vomiting) Print Language: [place] Instructions: Abdominal Pain (ED) Additional Instructions: Norflex Extended Release: may take one tablet twice a day for pain. Follow up with your family doctor in next 2-3 days for recheck. Return to ED if symptoms worsen. Referrals: Akilah Bowden NP [Primary Care Provider] - 1 week Documented by User: Isac Ann MD 10/20/24 22:16 HPI HPI - General Adult General Chief complaint: Abdominal Pain Stated complaint: ABDOMINAL PAIN Time Seen by Provider: 10/20/24 16:26 Related Data Home Medications ?Medication ?Instructions ?Recorded ?Confirmed metformin 500 mg tablet,extended 500 mg PO DAILY 08/08/24 10/20/24 release 24 hr omeprazole 40 mg capsule,delayed 40 mg PO BID 08/08/24 10/20/24 release ondansetron 8 mg disintegrating 8 mg PO BID PRN nausea and vomiting 10/20/24 10/20/24 tablet Previous Rx's ?Medication ?Instructions ?Recorded dicyclomine 20 mg tablet 20 mg PO QID PRN abdominal pain 07/10/23 #12 tabs Allergies Allergy/AdvReac Type Severity Reaction Status Date / Time promethazine (From Phenergan) Allergy Severe Confusion Verified 08/12/24 07:29 Opioid HPI Opioid Management Most Recent Opioid Data: Last Pain Scale 7 07/10/23 15:59 07/10/23 Last MAR Pain Assessment 10/20/24 17:44 PFSH PFSH Social History Smoking status: Current every day smoker Little interest or pleasure in doing things: not at all Feeling down, depressed, or hopeless: not at all Exam Constitutional Vital Signs, click to edit/add: Last Vital Signs Temp 97.7 F 10/20/24 16:25 Pulse 74 10/20/24 22:07 Resp 18 10/20/24 22:07 BP 142/87 H 10/20/24 22:07 Pulse Ox 100 10/20/24 22:07 O2 Del Method Room Air 10/20/24 22:07 Course Vital Signs Vital signs: Vital Signs Temperature 97.7 F 10/20/24 16:25 Pulse Rate 96 H 10/20/24 16:25 Respiratory Rate 20 10/20/24 16:25 Blood Pressure 134/100 H 10/20/24 16:25 Pulse Oximetry 99 10/20/24 16:25 Oxygen Delivery Method Room Air 10/20/24 16:25 Temperature 97.7 F 10/20/24 16:25 Pulse Rate 74 10/20/24 22:07 Respiratory Rate 18 10/20/24 22:07 Blood Pressure 142/87 H 10/20/24 22:07 Pulse Oximetry 100 10/20/24 22:07 Oxygen Delivery Method Room Air 10/20/24 22:07 Medical Decision Making MDM Narrative Medical decision making narrative: care transferred at change of shift. CT pending. Pain ongoing for over a week. Pain is positional. CT return neg for acute intra abdominal findings. Patient informed of the diagnosis and treated with norflex to see if this would offer her some relief. Advised of the importance of close follow up Lab Data Labs: Lab Results 10/20/24 10/20/24 Range/Units 16:32 16:54 WBC 8.7 (4.0-11.0) 10^3/uL RBC 5.23 (4.20-5.40) 10^6/uL Hgb 12.0 (12.0-16.0) g/dL Hct 39.5 (36.0-48.0) % MCV 75.5 L (81.0-99.0) fL MCH 22.9 L (26.7-34.0) pg MCHC 30.4 (29.9-35.2) g/dL RDW 16.9 H (11.0-15.0) % Plt Count 415 (150-450) 10^3/uL MPV 8.9 L (9.5-13.5) fL Neut % (Auto) 71.7 (43.0-75.0) % Lymph % (Auto) 20.2 L (20.5-60.0) % [place] % (Auto) 4.6 (1.7-12.0) % Eos % (Auto) 2.8 (0.9-7.0) % Baso % (Auto) 0.5 (0.2-2.0) % Neut # (Auto) 6.3 (1.4-6.5) 10^3/uL Lymph # (Auto) 1.8 (1.2-3.8) 10^3/uL [place] # (Auto) 0.4 (0.3-0.8) 10^3/uL Eos # (Auto) 0.2 (0.0-0.7) 10^3/uL Baso # (Auto) 0.0 (0.0-0.1) 10^3/uL Abs Immat Gran (auto) 0.02 (0.00-0.03) 10^3/uL Imm/Tot Granulo (auto) 0.2 (0.0-0.5) % Sodium 139 (136-145) mmol/L Potassium 4.0 (3.5-5.1) mmol/L Chloride 102 (98-107) mmol/L Carbon Dioxide 23.0 (21.0-32.0) mmol/L Anion Gap 18.0 BUN 9.0 (7.0-18.0) mg/dL Creatinine 0.81 (0.55-1.02) mg/dL Est GFR ( Amer) >60 (>=60 mL/min/1.73m^2) Est GFR (Non-Af Amer) >60 (>=60 mL/min/1.73m^2) BUN/Creatinine Ratio 11.1 Glucose 143 H (74-106) mg/dL Calcium 9.1 (8.5-10.1) mg/dL Total Bilirubin 0.2 (0.2-1.0) mg/dL Direct Bilirubin 0.1 (0.0-0.2) mg/dL AST 17 (15-37) U/L ALT 39 (14-59) U/L Alkaline Phosphatase 88 (46-116) U/L Total Protein 8.0 (6.4-8.2) g/dL Albumin 3.9 (3.4-5.0) g/dL Globulin 4.1 g/dL Albumin/Globulin Ratio 1.0 Amylase 48 (25-115) U/L Lipase 63.0 (16.0-77.0) U/L Urine Color Lt. yellow (YELLOW) Urine Clarity Clear (CLEAR) Urine pH 6.0 (5.0-9.0) Ur Specific [facility] <=1.005 A (1.005-1.025) Urine Protein Negative (NEG/TRACE) mg/dL Urine Glucose (UA) Negative (NEGATIVE) mg/dL Urine Ketones Negative (NEGATIVE) mg/dL Urine Occult Blood Small A (NEGATIVE) Urine Nitrite Negative (NEGATIVE) Urine Bilirubin Negative (NEGATIVE) Urine Urobilinogen 0.2 (0.2-1.0) EU/dL Ur Leukocyte Esterase Negative (NEGATIVE) Urine RBC 0-2 (0-2) #/HPF Urine WBC 0-2 A (NONE SEEN) #/HPF Ur Squamous Epith Cells Rare (NONE/RARE) #/LPF Urine Crystals None seen (None Seen) #/HPF Urine Bacteria Trace A (NONE SEEN) #/HPF Urine Casts None seen (NONE SEEN) #/LPF Urine Mucus None seen (NONE SEEN) Ur Culture Indicated? No Urine HCG, Qual Negative (NEGATIVE) Discharge Plan Discharge Chief Complaint: Abdominal Pain Clinical Impression: Abdominal pain Patient Disposition: Home, Self-Care Prescriptions / Home Meds: No Action dicyclomine 20 mg tablet 20 mg PO QID PRN (Reason: abdominal pain) Qty: 12 0RF metformin 500 mg tablet extended release 24 hr 500 mg PO DAILY omeprazole 40 mg capsule,delayed release(DR/EC) 40 mg PO BID ondansetron 8 mg tablet,disintegrating 8 mg PO BID PRN (Reason: nausea and vomiting) Print Language: [place] Instructions: Abdominal Pain (ED) Additional Instructions: Norflex Extended Release: may take one tablet twice a day for pain. Follow up with your family doctor in next 2-3 days for recheck. Return to ED if symptoms worsen. Referrals: Akilah Bowden NP [Primary Care Provider] - 1 week
[2024-10-20 16:46] LABS: HCG Qualitative Urine* NEGATIVE (NEGATIVE); Internal Control Within Normal Limits
[2024-10-20 16:54] LABS: Bilirubin Urine NEGATIVE (NEGATIVE); Blood Urine SMALL (NEGATIVE); Clarity Urine CLEAR (CLEAR); Color Urine LT. YELLOW (YELLOW); Glucose Urine UA NEGATIVE (NEGATIVE); Ketones Urine NEGATIVE (NEGATIVE); Leukocyte Esterase Urine NEGATIVE (NEGATIVE); Nitrite Urine NEGATIVE (NEGATIVE); Protein Urine NEGATIVE (NEG/TRACE); Specific Gravity Urine <=1.005 (1.005-1.025); Urobilinogen Urine 0.2 EU/dL (0.2-1.0)
[2024-10-20 17:02] LABS: Basophils Percent Auto 0.5 % (0.2-2.0); Eosinophils Absolute Auto 0.2 10^3/uL (0.0-0.7); Eosinophils Percent Auto 2.8 % (0.9-7.0); Hematocrit 39.5 % (36.0-48.0); Immature Granulocytes Abs Auto 0.02 10^3/uL (0.00-0.03); Immature Granulocytes Pct Auto 0.2 % (0.0-0.5); Lymphocytes Absolute Auto 1.8 10^3/uL (1.2-3.8); Lymphocytes Percent Auto 20.2 % (20.5-60.0); Mean Corpuscular HGB Conc 30.4 g/dL (29.9-35.2); Mean Corpuscular Hemoglobin 22.9 pg (26.7-34.0); Mean Corpuscular Volume 75.5 fL (81.0-99.0); Mean Platelet Volume 8.9 fL (9.5-13.5); Monocytes Absolute Auto 0.4 10^3/uL (0.3-0.8); Monocytes Percent Auto 4.6 % (1.7-12.0); Neutrophils Absolute Auto 6.3 10^3/uL (1.4-6.5); Neutrophils Percent Auto 71.7 % (43.0-75.0); Platelet Count 415 10^3/uL (150-450); Red Blood Count 5.23 10^6/uL (4.20-5.40); Red Cell Distribution Width 16.9 % (11.0-15.0); White Blood Count 8.7 10^3/uL (4.0-11.0)
[2024-10-20 17:13] LABS: Bacteria Urine TRACE #/HPF (NONE SEEN); Cast Seen? NONE SEEN #/LPF (NONE SEEN); Crystals Seen? None Seen #/HPF (None Seen); Mucus Urine NONE SEEN (NONE SEEN); RBC Urine 0-2 #/HPF (0-2); Squamous Epithelial Cell Urine RARE #/LPF (NONE/RARE); Urine Culture Indicated NO; WBC Urine 0-2 #/HPF (NONE SEEN)
[2024-10-20 17:41] LABS: Bilirubin Direct 0.1 mg/dL (0.0-0.2); Bilirubin Total 0.2 mg/dL (0.2-1.0)
[2024-10-20 17:42] LABS: Alanine Aminotransferase 39 U/L (14-59); Albumin Level 3.9 g/dL (3.4-5.0); Alkaline Phosphatase 88 U/L (46-116); Amylase 48 U/L (25-115); Aspartate Amino Transferase 17 U/L (15-37); Globulin 4.1 g/dL
[2024-10-20 17:43] LABS: BUN Creatinine Ratio 11.1; Calcium 9.1 mg/dL (8.5-10.1); Chloride 102 mmol/L (98-107); Estimated GFR (African America >60 (>=60 mL/min/1.73m^2); Estimated GFR (Non-African Ame >60 (>=60 mL/min/1.73m^2); Glucose 143 mg/dL (74-106); Sodium 139 mmol/L (136-145)
[2024-10-20] MEDS: MORPHINE SULFATE 4 MG/ML VIAL IV (17:44)
[2024-10-20] MEDS: FENTANYL CITRATE/PF 100 MCG/2 ML VIAL 50 MCG IV (19:42)
[2024-10-20 22:07] VITALS: BP 142/87; PULSE 74; O2SAT 100
[2024-10-20] MEDS: ORPHENADRINE CITRATE 100 MG TABLET.ER PO (22:20)
== END 2024-10-20 22:26 | disposition home or self-care (01) ==
PROVIDERS: Emergency Medicine; Emergency Provider Internal Medicine; PCP Nurse Practitioner
DX: R10.11 Right upper quadrant pain (principal); Z90.49 Acquired absence of other specified parts of digestive tract; F17.200 Nicotine dependence, unspecified, uncomplicated
CPT/HCPCS: 36415; 74176; 74177; 80048; 80076; 81001; 82150; 83690; 84703; 85025; 96374; 96375; 99285; J2270; J3010; Q9967

== ENCOUNTER 2024-12-13 13:28 | Observation (INO) | payer OTHER, SELFPAY ==
[2024-12-13] VITALS (34 sets, daily range): BP systolic 135–180; BP diastolic 82–105; PULSE 62–90; TEMP 36.5–36.7; O2SAT 93–100; BMI 41.6; BMI 42.8
--- NOTE | 2024-12-13 14:31 | ED_ITS ---
Documented by User: RAHEEM Mallory 12/13/24 17:16 HPI HPI - General Adult General Chief complaint: Chest Pain Stated complaint: MIGRAINE Time Seen by Provider: 12/13/24 14:22 Source: patient Mode of arrival: walk-in Limitations: no limitations History of Present Illness HPI narrative: Patient is a 44-year-old female presents to the ER with concerns of migraine headache. Patient reports the headache started around 4 AM. Progressively building posterior head now all over does sometimes go into her neck and upper back she denies any chest pain or shortness of breath. She is currently being seen by GI in [place] for a possible biliary condition as she had her gallbladder removed but continued to have symptoms. She reports having nausea photophobia and phonophobia with the headache she has vomited a few times. She denies any fevers or chills. She rates her pain 10 out of 10 but states it has been 10 in the past with 3 other headaches in her lifetime. She tried taking aspirin headache medication at home twice today without relief. She is tearful noting that she does not sleep well on a regular basis. Patient's significant other present at bedside and appears supportive. She denies any recent head injury but states she has not had a scan of her head with discussion of the severity of her headaches. Location: Reports head Radiation: Reports back Severity: severe Quality: Reports aching, sharp and constant Pain Consistency: Reports constant Relieving factors: Reports none Related Data Home Medications ?Medication ?Instructions ?Recorded ?Confirmed metformin 500 mg tablet,extended 500 mg PO DAILY 08/0812/13/24 release 24 hr omeprazole 40 mg capsule,delayed 40 mg PO BID 08/08/24 12/13/24 release ondansetron 8 mg disintegrating 8 mg PO BID PRN nausea and vomiting 10/20/24 12/13/24 tablet Allergies Allergy/AdvReac Type Severity Reaction Status Date / Time promethazine (From Phenergan) Allergy Severe Confusion Verified 08/12/24 07:29 Opioid HPI Opioid Management Most Recent Opioid Data: Last Pain Scale 10 Today, 18:33 Last Pain Assessment Today, 17:54 Last MAR Pain Assessment Today, 14:43 Last ORT Total Score 9 Today, 17:54 Last ORT Risk Category High Risk Today, 17:54 Review of Systems ROS Constitutional Denies: fever or chills Eyes Denies: change in vision Ears, nose, mouth, and throat Denies: throat pain, neck pain or ear discharge Cardiovascular Denies: chest pain, palpitations or leg pain with exertion Respiratory Denies: shortness of breath, cough, wheezing or stridor Gastrointestinal Reports: abdominal pain (chronic), nausea and vomiting; Denies: coffee grounds in vomit or diarrhea Genitourinary Denies: painful urination or urinary frequency Musculoskeletal Denies: back pain, neck pain or extremity pain Integumentary/Breast Denies: rash or itching Neurological Reports: headache; Denies: numbness in extremities, weakness in extremities or difficulty communicating thoughts Psychiatric Denies: anxiety or difficulty concentrating Endocrine Denies: excessive urination [facility] Medical History (Updated 12/13/24 @ 17:50 by Mag Romo) GERD (gastroesophageal reflux disease) ?K21.9 - Gastro-esophageal reflux disease without esophagitis (ICD-10) Diabetes ?E11.9 - Type 2 diabetes mellitus without complications (ICD-10) Surgical History (Updated 12/13/24 @ 17:51 by Mag Romo) History of cholecystectomy ?Z90.49 - Acquired absence of other specified parts of digestive tract (ICD- 10) History of section ?Z98.891 - History of uterine scar from previous surgery (ICD-10) Family History (Updated 12/13/24 @ 17:52 by Danyell Lloyd) Grandmother Family history of myocardial infarction Family history of stroke Family history of hypertension Family history of diabetes mellitus Grandfather Family history of diabetes mellitus Family history of hypertension Family history of cancer Family history of COPD (chronic obstructive pulmonary disease) Mother Family history of diabetes mellitus Family history of hypertension Social History (Updated 12/13/24 @ 17:54 by Danyell Lloyd) Within the past year, how often did you have a drink containing alcohol: never Within the past year, how often did you have six or more drinks on one occasion: never Score interpretation: A score less than 3 is consistent with normal alcohol consumption. Smoking status: Current every day smoker Second hand tobacco smoke exposure: Yes Non-prescribed substance use: denies use Previous occupational history: [employer] Known occupational exposures/hazards: No Highest level of school completed/degree received: 9th grade Do you want help with school or training: No Are you now , , , , never or living with a partner: How often do you get together with friends or relatives: never How often do you attend scientologist or tenriism services: never Do you belong to any clubs or organizations such as scientologist groups unions, fraternal or athletic groups, or school groups: no Total score: 1 Score interpretation: A score of less than or equal to 1 indicates the most socially isolated. Little interest or pleasure in doing things: not at all Feeling down, depressed, or hopeless: not at all Feel stressed/tense/nervous/anxious/difficulty sleeping: only a little Due to disability, difficulty making decisions: No Do you think of yourself as: straight/heterosexual Gender Identity: female Exam Narrative Exam Narrative: Vital signs and nurses notes reviewed. The patient is not hypoxic. General: The patient appears uncomfortable and tearful decribing her headache Skin: Warm, dry, no pallor noted. The patient has no evidence of rash, petechiae, or purpura noted. Head: Normocephalic, atraumatic, no temporal arterial tenderness. Neck: Supple, trachea mid-line, no tenderness, no lymphadenopathy. No meningeal signs. No nuchal rigidity. Eye: Pupils are equal, round and reactive to light, EOMI, pt wearing sunglasses. Ears, Nose, Mouth, and Throat: Oral mucosa is moist, TMs are clear bilaterally, no hemotympanum noted. Cardiovascular: Regular Rate and Rhythm Respiratory: Patient is in no distress, no accessory muscle use, lungs are clear to auscultation, no wheezing, rales or rhonchi Back: non-tender, no CVA tenderness Musculoskeletal: normal ROM, no tenderness, no swelling, normal strength 5/5. Normal pulses to radial 2+ bilaterally and 2+ at DP and PT bilaterally and symmetrically. GI: Normal bowel sounds, mild tenderness generalized. pt states unchanged from baseline., no masses appreciated. No rebound, guarding, or rigidity noted. 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 The patient has normal speech. The patient has normal coordination. . Normal motor and sensory observed. Psychiatric: Cooperative Constitutional Vital Signs, click to edit/add: Last Vital Signs Temp 97.9 F 12/13/24 17:54 Pulse 64 12/13/24 18:00 Resp 16 12/13/24 17:54 BP 150/82 H 12/13/24 17:54 Pulse Ox 93 L 12/13/24 17:54 O2 Del Method Room Air 12/13/24 17:54 Course Vital Signs Vital signs: Vital Signs Temperature 98.0 F 12/13/24 13:33 Pulse Rate 90 12/13/24 13:33 Respiratory Rate 18 12/13/24 13:33 Blood Pressure 180/100 H 12/13/24 13:33 Pulse Oximetry 100 12/13/24 13:33 Oxygen Delivery Method Room Air 12/13/24 13:33 Temperature 97.9 F 12/13/24 17:54 Pulse Rate 64 12/13/24 18:00 Respiratory Rate 16 12/13/24 17:54 Blood Pressure 150/82 H 12/13/24 17:54 Pulse Oximetry 93 L 12/13/24 17:54 Oxygen Delivery Method Room Air 12/13/24 17:54 Medical Decision Making MDM Narrative Medical decision making narrative: Patient presents tearful anxious regarding migraine headache symptoms progressing since 4 AM. She denies any fever or trauma. She does not have any history of head imaging at our facility with review of the PACS. We discussed the intensity of her pain and patient states she has experienced this in the past on 3 other occasions requiring an ER visit. Her blood pressure is mildly elevated. She is agreeable to some basic blood work along with Given her vomiting and history of abdominal symptoms.CT of the brain and chest x-ray. with headache being 10/10. Pt medication with Toradol 30mg IV, Iv fluid bolus. Valium 2mg IV and Benadryl 50 MG IV. and zofran 4mg IV. Blood pressure improved significantly to 138/89. Patient reevaluated after returning from CT scan. No relief yet in her headache. Magnesium 2 g ordered IV and Decadron ordered 10 mg IV. We are awaiting reads on her CT head and a chest x-ray. Laboratory studies were reviewed. Will consider admission for intractable headache, no fever, no meningeal signs, denies sudden onset symptoms head CT is negative. She notes that she has had the same level of pain 2-3 other times in her life. 1600 Dr. Wilkerson note. I have spoken to the patient and evaluated the patient as well at this time. Patient states she has had 2 headaches like this in the past, where she has gone to the ER, [place]. Last one was approximately 1 year ago. Patient states she normally does get headaches 1 or 2 times a week. She does see neurology group, [facility]. Patient was brought to the ER by her . No trauma. Patient's headache was gradual getting worse this morning, not sudden onset, not thunderclap. Patient has received several medications thus far. Will be adding on IV Compazine, Norflex, and Depakote. If this does not work, we most likely beginning of a narcotic for admission. I did discuss with patient potential lumbar puncture, we did discuss the indications for performing the procedure. Risk and benefits were discussed. We would give additional medication and see if this works at this time. No trauma. No blood thinners. Patient has been given multiple medications already as prescribed by Lior German PA-C. Critical care time 45 minutes exclusive from separate billable procedures that were performed. The following was considered in the determination of critical care but not limited to the level of medical decision making, intensive cardiac and/or respiratory monitoring, frequent vital sign monitoring, evaluation of laboratory studies, evaluation of radiographic studies, oxygen monitoring, and constant monitoring and speaking to family at bedside Patient reevaluated after receiving her IV Compazine Norflex and Depakote. She reports still no change in her headache symptoms. She appears less tearful though. Patient agreeable to admission for intractable headache for further evaluation. Case was discussed with Dr. Ta @ 4:59pm regarding need for admission. Medical Records Medical records reviewed: Yes I reviewed the patient's medical records Medical records narrative: CT 10/20/24: Abdomen and pelvis- no acute intra-abdminal process Lab Data Lab results reviewed: Yes I reviewed the patient's lab results Lab results narrative: + Anemia Labs: Lab Results 12/13/24 Range/Units 13:55 WBC 6.2 (4.0-11.0) 10^3/uL RBC 4.91 (4.20-5.40) 10^6/uL Hgb 11.3 L (12.0-16.0) g/dL Hct 36.8 (36.0-48.0) % MCV 74.9 L (81.0-99.0) fL MCH 23.0 L (26.7-34.0) pg MCHC 30.7 (29.9-35.2) g/dL RDW 17.3 H (11.0-15.0) % Plt Count 406 (150-450) 10^3/uL MPV 10.6 (9.5-13.5) fL Neut % (Auto) 68.8 (43.0-75.0) % Lymph % (Auto) 21.6 (20.5-60.0) % Gilchrist % (Auto) 5.8 (1.7-12.0) % Eos % (Auto) 2.7 (0.9-7.0) % Baso % (Auto) 0.8 (0.2-2.0) % Neut # (Auto) 4.3 (1.4-6.5) 10^3/uL Lymph # (Auto) 1.4 (1.2-3.8) 10^3/uL Gilchrist # (Auto) 0.4 (0.3-0.8) 10^3/uL Eos # (Auto) 0.2 (0.0-0.7) 10^3/uL Baso # (Auto) 0.1 (0.0-0.1) 10^3/uL Abs Immat Gran (auto) 0.02 (0.00-0.03) 10^3/uL Imm/Tot Granulo (auto) 0.3 (0.0-0.5) % Sodium 139 (136-145) mmol/L Potassium 3.7 (3.5-5.1) mmol/L Chloride 105 (98-107) mmol/L Carbon Dioxide 26.0 (21.0-32.0) mmol/L Anion Gap 11.7 BUN 6.0 L (7.0-18.0) mg/dL Creatinine 0.87 (0.55-1.02) mg/dL Est GFR ( Amer) >60 (>=60 mL/min/1.73m^2) Est GFR (Non-Af Amer) >60 (>=60 mL/min/1.73m^2) BUN/Creatinine Ratio 6.9 Glucose 103 (74-106) mg/dL Calcium 8.9 (8.5-10.1) mg/dL Total Bilirubin 0.3 (0.2-1.0) mg/dL AST 15 (15-37) U/L ALT 28 (14-59) U/L Alkaline Phosphatase 79 (46-116) U/L Total Protein 7.4 (6.4-8.2) g/dL Albumin 3.6 (3.4-5.0) g/dL Globulin 3.8 g/dL Albumin/Globulin Ratio 0.9 Lipase 36.0 (16.0-77.0) U/L Serum HCG, Qual Negative (NEGATIVE) Imaging Data CT scan - head: My impression: CT head shows no CT evidence of acute intracranial abnormality. 12/13/24 Chest x-ray: Attestation: I personally reviewed and interpreted this imaging study as follows: My impression: No acute process in the chest. No pneumothorax ECG Data Attestation: I personally reviewed and interpreted this ECG as follows: Interpretation: EKG interpretation: Emergency Department physician interpretation, normal sinus rhythm 83 bpm, no ectopy, no ST segment elevation, normal axis. Discharge Plan Discharge Chief Complaint: Chest Pain Clinical Impression: Intractable headache Patient Disposition: Admitted as Observation Time of Disposition Decision: 17:15 Condition: Good Discharge Date/Time: 12/13/24 17:40 Documented by User: Ramon Wilkerson MD 12/13/24 19:27 HPI HPI - General Adult General Chief complaint: Chest Pain Stated complaint: MIGRAINE Time Seen by Provider: 12/13/24 14:22 Related Data Home Medications ?Medication ?Instructions ?Recorded ?Confirmed metformin 500 mg tablet,extended 500 mg PO DAILY 08/0812/13/24 release 24 hr omeprazole 40 mg capsule,delayed 40 mg PO BID 08/08/24 12/13/24 release ondansetron 8 mg disintegrating 8 mg PO BID PRN nausea and vomiting 10/20/24 12/13/24 tablet Allergies Allergy/AdvReac Type Severity Reaction Status Date / Time promethazine (From Phenergan) Allergy Severe Confusion Verified 08/12/24 07:29 Opioid HPI Opioid Management Most Recent Opioid Data: Last Pain Scale 10 Today, 18:33 Last Pain Assessment Today, 17:54 Last MAR Pain Assessment Today, 14:43 Last ORT Total Score 9 Today, 17:54 Last ORT Risk Category High Risk Today, 17:54 PFSH PFSH Medical History (Updated 12/13/24 @ 17:50 by Mag Romo) GERD (gastroesophageal reflux disease) ?K21.9 - Gastro-esophageal reflux disease without esophagitis (ICD-10) Diabetes ?E11.9 - Type 2 diabetes mellitus without complications (ICD-10) Surgical History (Updated 12/13/24 @ 17:51 by Mag Romo) History of cholecystectomy ?Z90.49 - Acquired absence of other specified parts of digestive tract (ICD- 10) History of section ?Z98.891 - History of uterine scar from previous surgery (ICD-10) Family History (Updated 12/13/24 @ 17:52 by Danyell Lloyd) Grandmother Family history of myocardial infarction Family history of stroke Family history of hypertension Family history of diabetes mellitus Grandfather Family history of diabetes mellitus Family history of hypertension Family history of cancer Family history of COPD (chronic obstructive pulmonary disease) Mother Family history of diabetes mellitus Family history of hypertension Social History (Updated 12/13/24 @ 17:54 by Danyell Lloyd) Within the past year, how often did you have a drink containing alcohol: never Within the past year, how often did you have six or more drinks on one occasion: never Score interpretation: A score less than 3 is consistent with normal alcohol consumption. Smoking status: Current every day smoker Second hand tobacco smoke exposure: Yes Non-prescribed substance use: denies use Previous occupational history: [employer] Known occupational exposures/hazards: No Highest level of school completed/degree received: 9th grade Do you want help with school or training: No Are you now , , , , never or living with a partner: How often do you get together with friends or relatives: never How often do you attend scientologist or tenriism services: never Do you belong to any clubs or organizations such as scientologist groups unions, fraternal or athletic groups, or school groups: no Total score: 1 Score interpretation: A score of less than or equal to 1 indicates the most socially isolated. Little interest or pleasure in doing things: not at all Feeling down, depressed, or hopeless: not at all Feel stressed/tense/nervous/anxious/difficulty sleeping: only a little Due to disability, difficulty making decisions: No Do you think of yourself as: straight/heterosexual Gender Identity: female Exam Constitutional Vital Signs, click to edit/add: Last Vital Signs Temp 97.9 F 12/13/24 17:54 Pulse 64 12/13/24 18:00 Resp 16 12/13/24 17:54 BP 150/82 H 12/13/24 17:54 Pulse Ox 93 L 12/13/24 17:54 O2 Del Method Room Air 12/13/24 17:54 Course Vital Signs Vital signs: Vital Signs Temperature 98.0 F 12/13/24 13:33 Pulse Rate 90 12/13/24 13:33 Respiratory Rate 18 12/13/24 13:33 Blood Pressure 180/100 H 12/13/24 13:33 Pulse Oximetry 100 12/13/24 13:33 Oxygen Delivery Method Room Air 12/13/24 13:33 Temperature 97.9 F 12/13/24 17:54 Pulse Rate 64 12/13/24 18:00 Respiratory Rate 16 12/13/24 17:54 Blood Pressure 150/82 H 12/13/24 17:54 Pulse Oximetry 93 L 12/13/24 17:54 Oxygen Delivery Method Room Air 12/13/24 17:54 Medical Decision Making MDM Narrative Medical decision making narrative: Patient presents tearful anxious regarding migraine headache symptoms progressing since 4 AM. She denies any fever or trauma. She does not have any history of head imaging at our facility with review of the PACS. We discussed the intensity of her pain and patient states she has experienced this in the past on 3 other occasions requiring an ER visit. Her blood pressure is mildly elevated. She is agreeable to some basic blood work along with Given her vomiting and history of abdominal symptoms.CT of the brain and chest x-ray. with headache being 10/10. Pt medication with Toradol 30mg IV, Iv fluid bolus. Valium 2mg IV and Benadryl 50 MG IV. and zofran 4mg IV. Blood pressure improved significantly to 138/89. Patient reevaluated after returning from CT scan. No relief yet in her headache. Magnesium 2 g ordered IV and Decadron ordered 10 mg IV. We are awaiting reads on her CT head and a chest x-ray. Laboratory studies were reviewed. Will consider admission for intractable headache, no fever, no meningeal signs, denies sudden onset symptoms head CT is negative. She notes that she has had the same level of pain 2-3 other times in her life. [address] Dr. Wilkerson note. I have spoken to the patient and evaluated the patient as well at this time. Patient states she has had 2 headaches like this in the past, where she has gone to the ER, [place]. Last one was approximately 1 year ago. Patient states she normally does get headaches 1 or 2 times a week. She does see neurology group, [facility]. Patient was brought to the ER by her . No trauma. Patient's headache was gradual getting worse this morning, not sudden onset, not thunderclap. Patient has received several medications thus far. Will be adding on IV Compazine, Norflex, and Depakote. If this does not work, we most likely beginning of a narcotic for admission. I did discuss with patient potential lumbar puncture, we did discuss the indications for performing the procedure. Risk and benefits were discussed. We would give additional medication and see if this works at this time. No trauma. No blood thinners. Patient has been given multiple medications already as prescribed by Lior German PA-C. [id number] patient was reassessed again by Lior German and Dr. Wilkerson. Patient states her pain is still 10/10. Patient does not feel any relief, but she is not crying, shaking, looks more comfortable. Patient will be admitted for intractable headache. I again discussed with her risk and benefits of this performing lumbar puncture. Patient does not wish to have this testing done at this time, I discussed her typical criteria or symptoms or concerns that we worry about including fever, change in mental status or confusion, worst heada yoandy of her life, sudden onset, thunderclap in nature. Patient states this headache does feel more significant in the last 2 worst headache she has ever had, but has been a gradual onset, no thunderclap in, no fever, no change in mental status. Shared decision making was done, decision making was made to not perform lumbar puncture at this time, continue to treat symptoms. Patient had discussion of her case with myself and Dr. Ta. We will give patient IV morphine 8mg at the recommendation from Dr. Ta to give morphine. Critical care time 55 minutes exclusive from separate billable procedures that were performed. The following was considered in the determination of critical care but not limited to the level of medical decision making, intensive cardiac and/or respiratory monitoring, frequent vital sign monitoring, evaluation of laboratory studies, evaluation of radiographic studies, oxygen monitoring, and constant monitoring and speaking to family at bedside Patient reevaluated after receiving her IV Compazine Norflex and Depakote. She reports still no change in her headache symptoms. She appears less tearful though. Patient agreeable to admission for intractable headache for further evaluation. Case was discussed with Dr. Ta @ 4:59pm regarding need for admission. Lab Data Labs: Lab Results 12/13/24 Range/Units 13:55 WBC 6.2 (4.0-11.0) 10^3/uL RBC 4.91 (4.20-5.40) 10^6/uL Hgb 11.3 L (12.0-16.0) g/dL Hct 36.8 (36.0-48.0) % MCV 74.9 L (81.0-99.0) fL MCH 23.0 L (26.7-34.0) pg MCHC 30.7 (29.9-35.2) g/dL RDW 17.3 H (11.0-15.0) % Plt Count 406 (150-450) 10^3/uL MPV 10.6 (9.5-13.5) fL Neut % (Auto) 68.8 (43.0-75.0) % Lymph % (Auto) 21.6 (20.5-60.0) % Gilchrist % (Auto) 5.8 (1.7-12.0) % Eos % (Auto) 2.7 (0.9-7.0) % Baso % (Auto) 0.8 (0.2-2.0) % Neut # (Auto) 4.3 (1.4-6.5) 10^3/uL Lymph # (Auto) 1.4 (1.2-3.8) 10^3/uL Gilchrist # (Auto) 0.4 (0.3-0.8) 10^3/uL Eos # (Auto) 0.2 (0.0-0.7) 10^3/uL Baso # (Auto) 0.1 (0.0-0.1) 10^3/uL Abs Immat Gran (auto) 0.02 (0.00-0.03) 10^3/uL Imm/Tot Granulo (auto) 0.3 (0.0-0.5) % Sodium 139 (136-145) mmol/L Potassium 3.7 (3.5-5.1) mmol/L Chloride 105 (98-107) mmol/L Carbon Dioxide 26.0 (21.0-32.0) mmol/L Anion Gap 11.7 BUN 6.0 L (7.0-18.0) mg/dL Creatinine 0.87 (0.55-1.02) mg/dL Est GFR ( Amer) >60 (>=60 mL/min/1.73m^2) Est GFR (Non-Af Amer) >60 (>=60 mL/min/1.73m^2) BUN/Creatinine Ratio 6.9 Glucose 103 (74-106) mg/dL Calcium 8.9 (8.5-10.1) mg/dL Total Bilirubin 0.3 (0.2-1.0) mg/dL AST 15 (15-37) U/L ALT 28 (14-59) U/L Alkaline Phosphatase 79 (46-116) U/L Total Protein 7.4 (6.4-8.2) g/dL Albumin 3.6 (3.4-5.0) g/dL Globulin 3.8 g/dL Albumin/Globulin Ratio 0.9 Lipase 36.0 (16.0-77.0) U/L Serum HCG, Qual Negative (NEGATIVE) Discharge Plan Discharge Chief Complaint: Chest Pain Clinical Impression: Intractable headache Patient Disposition: Admitted as Observation Time of Disposition Decision: 17:15 Condition: Good Discharge Date/Time: 12/13/24 17:40
[2024-12-13 14:36] LABS: Basophils Absolute Auto 0.1 10^3/uL (0.0-0.1); Basophils Percent Auto 0.8 % (0.2-2.0); Eosinophils Absolute Auto 0.2 10^3/uL (0.0-0.7); Eosinophils Percent Auto 2.7 % (0.9-7.0); Hematocrit 36.8 % (36.0-48.0); Hemoglobin 11.3 g/dL (12.0-16.0); Immature Granulocytes Abs Auto 0.02 10^3/uL (0.00-0.03); Immature Granulocytes Pct Auto 0.3 % (0.0-0.5); Lymphocytes Absolute Auto 1.4 10^3/uL (1.2-3.8); Lymphocytes Percent Auto 21.6 % (20.5-60.0); Mean Corpuscular HGB Conc 30.7 g/dL (29.9-35.2); Mean Corpuscular Volume 74.9 fL (81.0-99.0); Mean Platelet Volume 10.6 fL (9.5-13.5); Monocytes Absolute Auto 0.4 10^3/uL (0.3-0.8); Monocytes Percent Auto 5.8 % (1.7-12.0); Neutrophils Absolute Auto 4.3 10^3/uL (1.4-6.5); Neutrophils Percent Auto 68.8 % (43.0-75.0); Platelet Count 406 10^3/uL (150-450); Red Blood Count 4.91 10^6/uL (4.20-5.40); Red Cell Distribution Width 17.3 % (11.0-15.0); White Blood Count 6.2 10^3/uL (4.0-11.0)
[2024-12-13 14:43] LABS: HCG Qualitative NEGATIVE (NEGATIVE); Internal Control Within Normal Limits
[2024-12-13] MEDS: KETOROLAC TROMETHAMINE 30 MG/ML VIAL IVP ×2 (14:43→23:30)
[2024-12-13] MEDS: DIAZEPAM 10 MG/2 ML SYRINGE 2 MG IV (14:44)
[2024-12-13] MEDS: DIPHENHYDRAMINE HCL 50 MG/ML VIAL IVP (14:44)
[2024-12-13] MEDS: ONDANSETRON PF 4 MG/2 ML VIAL IV (14:44)
[2024-12-13] MEDS: 0.9 % SODIUM CHLORIDE 1,000 ML 999 ML IV (14:44)
[2024-12-13 14:50] LABS: Alanine Aminotransferase 28 U/L (14-59); Albumin Globulin Ratio 0.9; Albumin Level 3.6 g/dL (3.4-5.0); Alkaline Phosphatase 79 U/L (46-116); Anion Gap 11.7; Aspartate Amino Transferase 15 U/L (15-37); BUN Creatinine Ratio 6.9; Bilirubin Total 0.3 mg/dL (0.2-1.0); Calcium 8.9 mg/dL (8.5-10.1); Chloride 105 mmol/L (98-107); Estimated GFR (African America >60 (>=60 mL/min/1.73m^2); Estimated GFR (Non-African Ame >60 (>=60 mL/min/1.73m^2); Globulin 3.8 g/dL; Glucose 103 mg/dL (74-106); Potassium 3.7 mmol/L (3.5-5.1); Sodium 139 mmol/L (136-145); Total Protein 7.4 g/dL (6.4-8.2)
--- NOTE | 2024-12-13 15:30 | ECG_ITS ---
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 Measurements Intervals Alloy Rate: 83 P: 44 KS: 146 QRS: 63 QRSD: 80 T: 10 QT: 374 QTc: 413 Interpretive Statements 1100 Sinus rhythm 4068 Nonspecific Twave abnormality Abnormal ECG Compared to ECG 06/12/2023 11:48:07 No significant changes Electronically Signed On 12-14-2024 7:42:38 EDT by BROOKE CACERES M.D.
[2024-12-13] MEDS: DEXAMETHASONE SOD PHOS 10 MG/ML VIAL IV (15:32)
[2024-12-13] MEDS: MAGNESIUM SULFATE IN WATER 2 GM/50 ML PREMIX IV (15:33)
[2024-12-13] MEDS: VALPROIC ACID INJ 500 MG in 0.9 % SODIUM CHLORIDE 50 ML 55 MG IV (16:06)
[2024-12-13] MEDS: PROCHLORPERAZINE 10 MG/2 ML VIAL 5 MG IV (16:06)
[2024-12-13] MEDS: ORPHENADRINE 60 MG/2 ML VIAL IV (16:32)
[2024-12-13] MEDS: MORPHINE SULFATE 4 MG/ML VIAL 8 MG IV (17:30)
--- OUTSIDE RECORDS SUMMARY | 2024-12-13 17:58 | XMS_ITS | CCD ---
Author Organization [facility] Care Team Providers Care Mandarin Speaking Nanny Name Role Phone Unavailable Primary Care Provider UnavailYOJANA Moran Attending Unavailable Cinthya [employer], [place] Primary Care Provider ADELINE FLORENTINO Referring Unavailable CINTHYA, SEVEN Primary Care Unavailable ADELINE FLORENTINO Referring Unavailable CINTHYA, SEVEN Primary Care Unavailable ADELINE FLORENTINO Referring Unavailable CINTHYA, SEVEN Primary Care Unavailable GISELA CORDOVA Referring Unavailable CINTHYA, SEVEN Primary Care Unavailable Cinthya [employer], [place] Primary Care Provider THAIS MARLEY Attending Unavailable CINTHYA, SEVEN Referring [...] Admitting Unavailable MARLON TILLMAN Attending Unavailable GES, MARLON [...] Care Unavailable MALLORY GISELA M Referring Unavailable CINTHAY, SEVEN Primary Care Unavailable CINTHYA, SEVEN Primary [...] Promethazine; Translations: [PROMETHAZINE] Drug Allergy 03-26-2020 Other [facility] Work Phone: Medications Current Medications Medication Drug Class(es) Dates Sig (Normalized) Sig (Original) [id number] 200 actuat albuterol 0.09 mg/actuat metered dose [...] before meals. 11/21/2022 Active polyethylene glycol 3350 87598 mg powder for oral solution (2 sources) [...] mouth once daily. 11/01/2023 Active [facility] BANG (1 source) Start: 12-14-2023 Spacer/Aero-Holding Chambers ([facility]) BANG USE DIRECTED WITH INHALER 0 12/14/2023 [...] Test Name Value Interpretation Reference Range Facility US ABDOMEN LMTDon 10-21-2024 US ABDOMEN LMTD US ABDOMEN LMTD US ABDOMEN LMTD Clinical history:Fatty liver hepatic steatosis Comparison: 12/02/2020 Findings: Real time sonographic evaluation of the right upper quadrant is performed. Visualized portions of the pancreas appear unremarkable. Increased hepatic echotexture suggestive of diffuse hepatocellular disease, most commonly diffuse hepatic steatosis. Main portal vein is patent with hepatopedal flow. Main portal vein velocity 20.4 cm/s. The gallbladder is absent. Common bile duct is nondilated measuring 0.6 cm. Impression: Increased hepatic echotexture suggestive of diffuse hepatocellular disease, most commonly diffuse hepatic steatosis. No biliary dilatation postcholecystectomy. Finalized by Marlon Brooks MD on 10/21/2024 6:27 AM Normal [facility] Surgical Pathologyon 025 Surgical Path[address] Normal [facility] Comment on above: Result Comment: [facility] [address] [place] [address] Surgical Pathology Consultation Patient Name:RAYA GONZALES:1980 (Age: 44)Gender:FTaken:09/09/2024Reported:09/17/2024Physician(s):Elvi Chapman M.D. ([phone])Copy To: Rec. #:[id number]: #[id number] Final Pathologic Diagnosis 1. Endocervix, curettage: Unremarkable endocervical epithelium. 2. Endometrium, curettage: Proliferative endometrium. Report Electronically Signed Out gr09/17/2024Miguel Carney MD Interpretation performed at [facility], [address] [place] [address], License number: [id number]. Clinical History Heavy periods. Gross Description 1. Received in formalin labeled, [place], ECC is a pale mucoid material mixed with robles friable soft tissue bits, 0.7 x 0.4 x 0.1 cm in aggregate. The specimens are filtered and submitted in single cassette. (1, ns, [id number], m1) TB 2. Received in formalin labeled, VINNY, EMC are robles delicate to friable soft tissue bits admixed with brown hemorrhagic material and scant brown mucoid material, 2.5 x 2 x 0.3 cm in aggregate. The specimens are filtered and submitted in single cassette. Fixation Time: Tissue removed from patient: 1410 Time specimen placed in formalin: 1410 Cold ischemic time: Less than 1 minute Total fixation time: 28.5 hours (1, ns, [id number], m1) TB tg/09/10/2024NSK Specimen(s) Received 1: Endocervical curettings 2: Endometrial curettings Fee Codes(s): 1; 02982 2; 27838 BASIC METABOLIC PANLon 09-03 Anion gap [Moles/Vol] 6 mmol/L Normal 5-15 [facility] Comment on above: Performed By: #### B MP, CBCA ####[facility] ([id number])[address] [address] Calcium [Mass/Vol] 8.8 mg/dL Normal 8.5-10.[address] [facility] Comment on above: Performed By: #### B MP, CBCA ####[facility] ([id number])[address] [place] [address] Chloride [Moles/Vol] 104 mmol/L Normal 98-109 [facility] Comment on above: Performed By: #### B ASHLEY PEDRAZA ####[facility] ([id number])[address] [address], [place] [address] CO2 [Moles/Vol] 28 mmol/L Normal 22-32 [facility] Comment on above: Performed By: #### B KEILA CBCA ####[facility] ([id number])[address] [address] Creatinine [Mass/Vol] 0.86 mg/dL Normal 0.40-1.00 [facility] Comment on above: Result Comment: METH OD TRACEABLE TO IDMS STANDARD Performed By: #### ASHLEY Hooks MP ####[facility] ([id number])[address] [address] GFR/1.73 sq M.predicted among non-blacks MDRD (S/P/Bld) [Vol rate/Area] 86 mL/min/{1.73_m2} Normal >59 [facility] Comment on above: Result Comment: Reported eGFR is based on the CKD-EPI 2020 equation that does not use a race coefficient. Performed By: #### ASHLEY Hooks MP ####[facility] ([id number])[address] [address] Glucose [Mass/Vol] 124 mg/dL High 65-[address] [facility] Comment on above: Performed By: #### B ASHLEY PEDRAZA ####[facility] ([id number])[address] [address] Potassium [Moles/Vol] 4.2 mmol/L Normal 3.5-5.0 [facility] Comment on above: Performed By: #### Jessee PEDRAZA CBCA ####[facility] ([id number])[address] [address], [place] [address] Sodium [Moles/Vol] 138 mmol/L Normal 134-[address] [facility] Comment on above: Performed By: #### B KEILA, CBCA ####[facility] ([id number])[address], [place] [address] Urea nitrogen [Mass/Vol] 9 mg/dL Normal 5-23 [facility] Comment on above: Performed By: #### B MP, CBCA ####[facility] ([id number])[address] [address] [place] [address] CBC AND AUTO DIFFon 09-03-19 25 ABSOLUTE BASOPHIL 0.0 X10E9/L Normal 0.0-0.[address] [facility] Comment on above: Performed By: #### B KEILA, CBCA ####[facility] ([id number])[address] [address] [place] [address] ABSOLUTE NEUTROPHIL 4.1 X10E9/L Normal 1.5-6.6 [facility] Comment on above: Performed By: #### B KEILA, CBCA ####[facility] ([id number])[address] [address] Basophils/100 WBC (Bld) 0.5 % Normal [facility] Comment on above: Performed By: #### B MP, CBCA ####[facility] ([id number])[address] [address] Eosinophils (Bld) [#/Vol] 0.2 10*3/uL Normal 0.0-0.4 [facility] Comment on above: Performed By: #### B MP, CBCA ####[facility] ([id number])[address] [address] [place] [address] Eosinophils/100 WBC (Bld) 2.6 % Normal [facility] Comment on above: Performed By: #### B MP, CBCA ####[facility] ([id number])[address] [address] [place] [address] Erythrocyte distribution width (RBC) [Ratio] 18.8 % High 11.5-15.0 [facility] Comment on above: Performed By: #### B MP, CBCA ####[facility] ([id number])[address] [address] Hematocrit (Bld) [Volume fraction] 39.6 % Normal 35-47 [facility] Comment on above: Performed By: #### B KEILA, CBCA ####[facility] ([id number])[address] [address] Hemoglobin (Bld) [Mass/Vol] 12.3 g/dL Normal 11.7-15.5 [facility] Comment on above: Performed By: #### B KEILA, CBCA ####[facility] ([id number])[address] [address] Lymphocytes (Bld) [#/Vol] 1.6 10*3/uL Normal 1.0-3.5 [facility] Comment on above: Performed By: #### B KEILA, CBCA ####[facility] ([id number])[address] [address] Lymphocytes/100 WBC (Bld) 25.1 % Normal [facility] Comment on above: Performed By: #### B MP, CBCA ####[facility] ([id number])[address] [address] MCH (RBC) [Entitic mass] 23.4 pg Low 27-34 [facility] Comment on above: Performed By: #### B MP, CBCA ####[facility] ([id number])[address] [address] MCHC (RBC) [Mass/Vol] 31.0 g/dL Low 32-36 [facility] Comment on above: Performed By: #### B MP, CBCA ####[facility] ([id number])[address] [place] [address] MCV (RBC) [Entitic vol] 76 fL Low 80-100 [facility] Comment on above: Performed By: #### B MP, CBCA ####[facility] ([id number])[address] [address] [place] [address] Monocytes (Bld) [#/Vol] 0.4 10*3/uL Normal 0-0.9 [facility] Comment on above: Performed By: #### B MP, CBCA ####[facility] ([id number])[address] [address] Monocytes/100 WBC (Bld) 5.9 % Normal [facility] Comment on above: Performed By: #### B KEILA, CBCA ####[facility] ([id number])[address] [place] [address] Neutrophils/100 WBC (Bld) 65.9 % Normal [facility] Comment on above: Performed By: #### B MP, CBCA ####[facility] ([id number])[address] [address] [place] [address], [place] [address] Platelet mean volume (Bld) [Entitic vol] 8.2 fL Normal 7-12 [facility] Comment on above: Performed By: #### B MP, CBCA ####[facility] ([id number])[address] SU[address] [facility] [place] [address] Platelets (Bld) [#/Vol] 358 10*3/uL Normal 150-450 [facility] Comment on above: Performed By: #### B MP, CBCA ####[facility] ([id number])[address], [place] [address] RBC COUNT 5.25 X10E12/L High 3.80-5.20 [facility] Comment on above: Performed By: #### B MP, CBCA ####[facility] ([id number])[address], [place] [address] WBC (Bld) [#/Vol] 6.3 10*3/uL Normal 4.0-11.[address] [facility] Comment on above: Performed By: #### B MP, CBCA ####[facility] ([id number])[address], [place] [address] XR Chest PA and Lateralon Azael Garibay [...] Azael Garibay MD on 09/03/2024 10:49 PM [facility] Radiology Study observation (narrative) [facility] XR Chest PA and LateralOrder ed By: Azael Garibay on 09-03-2024 [facility] Work Phone: Surgical Pathologyon 024 Surgical Pathology Normal [facility] Comment on above: Result Comment: [facility] [address] [place] [address] Surgical Pathology Consultation Patient Name:RAYA GONZALES:1980 (Age: 44)Gender:FTaken:4Reported:4Physician(s):Elvi Chapman M.D. ([phone])Copy To: Rec. #:[id number]: #[id number] Final Pathologic Diagnosis 1. Endocervix - ECC: - Benign surface endocervical lining with focal squamous metaplasia (no dysplasia or neoplasia) 2. Endometrium - biopsy: - Mildly disordered proliferative endometrium (no polyps, hyperplasia or neoplasia) Report Electronically Signed Out hoover/07/26/2024Emanuel Islas MD Interpretation performed at [facility], [address] [place] [address], License number: [id number]. Clinical History Dysfunctional uterine bleeding (DUB) N93.8. Gross Description 1. Received in formalin labeled VINNY, ECC is a plastic wired brush with robles-brown soft tissue fragments admixed with hemorrhagic and mucoid material, 2.7 x 1.2 x 0.2 cm in aggregate. The specimen is filtered and entirely submitted in a single cassette. (1, ns, [id number],m2) DM. 2. Received in formalin labeled VINNY, EMB robles-brown soft tissue fragments and base with hemorrhagic and mucoid material, 2.7 x 2.3 x 0.3 cm in aggregate. The specimen is filtered and entirely submitted in a single cassette. (1, ns, [id number],m2) DM. Fixation Time: Tissue removed from patient: 1946 Time specimen placed in formalin: 1946 Cold ischemic time: Less than 1 minute Total fixation time: 14-1/2 hours dm/07/16/2024NSK Specimen(s) Received 1: Endocervical curettings 2: Endometrial biopsy Fee Codes(s): 1; 57509 2; 53231 COMPLETE BLOOD COUNTon 07-09 Erythrocyte distribution width (RBC) [Ratio] 16.8 % High 11.5-15.0 [facility] Comment on above: Performed By: #### 2 0415-6, 2842-3, 3016-3, 56079-4, 25099-1, CBC, 3024-7 ####[facility] ([id number])[address] [place] [address], [address] [place] [address] Hematocrit (Bld) [Volume fraction] 43.3 % Normal 35-47 [facility] Comment on above: Performed By: #### 2 0415-6, 2842-3, 3016-3, 02749-3, 83045-0, CBC, 3024-7 ####[facility] ([id number])[address] [address] [place] [address] Hemoglobin (Bld) [Mass/Vol] 13.8 g/dL Normal 11.7-15.5 [facility] Comment on above: Performed By: #### 2 0415-6, 2842-3, 3016-3, 51144-1, 72730-6, CBC, 3024-7 ####[facility] ([id number])[address] [address] [place] [address] MCH (RBC) [Entitic mass] 24.0 pg Low 27-34 [facility] Comment on above: Performed By: #### 2 0415-6, 2842-3, 3016-3, 83375-0, 32948-5, CBC, 3024-7 ####[facility] ([id number])[address] [address] [place] [address] MCHC (RBC) [Mass/Vol] 32.0 g/dL Normal 32-36 [facility] Comment on above: Performed By: #### 2 0415-6, 2842-3, 3016-3, 43961-5, 35677-1, CBC, 3024-7 ####[facility] ([id number])[address] SU[address] [facility] [place] [address] MCV (RBC) [Entitic vol] 75 fL Low 80-100 [facility] Comment on above: Performed By: #### 2 0415-6, 2842-3, 3016-3, 98447-6, 56676-6, CBC, 3024-7 ####[facility] ([id number])[address], [address] [place] [address] Platelet mean volume (Bld) [Entitic vol] 8.0 fL Normal 7-12 [facility] Comment on above: Performed By: #### 2 0415-6, 2842-3, 3016-3, 87901-4, 77458-9, CBC, 3024-7 ####[facility] ([id number])[address] [address] [place] [address] Platelets (Bld) [#/Vol] 382 10*3/uL Normal 150-450 [facility] Comment on above: Performed By: #### 2 0415-6, 2842-3, 3016-3, 81146-4, 23434-8, CBC, 3024-7 ####[facility] ([id number])[address] [address] [place] [address] RBC COUNT 5.77 X10E12/L High 3.80-5.20 [facility] Comment on above: Performed By: #### 2 0415-6, 2842-3, 3016-3, 66972-3, 48453-6, CBC, 3024-7 ####[facility] ([id number])[address] [address] WBC (Bld) [#/Vol] 9.0 10*3/uL Normal 4.0-11.[address] [facility] Comment on above: Performed By: #### 2 0415-6, 2842-3, 3016-3, 72379-0, 15827-6, CBC, 3024-7 ####[facility] ([id number])[address] [address] FREE T4on 07-09-2024 Free T4 [Mass/Vol] 0.88 ng/dL Normal 0.61-1.[address] [facility] Comment on above: Result Comment: NEW REFERENCE RANGE FOR PEDIATRIC PATIENTS Performed By: #### 2 0415-6, 2842-3, 3016-3, 00556-1, 21506-2, CBC, 3024-7 ####[facility] ([id number])[address] [facility], [address] [place] [address] Follitropin Qnon 07-09-2024 FOLLICLE STIM HORMONE 6.9 mIU/mL Normal [facility] Comment on above: Result Comment: NORMAL FEMALE Luteal 1.8-5.1 mIU/mL Follicular 3.8-8.8 mIU/mL Mid Cycle 4.5-22.5 mIU/mL [place] 16.7-113.6 mIU/mL Performed By: #### 2 0415-6, 2842-3, 3016-3, 49748-0, 05208-5, CBC, 3024-7 ####[facility] ([id number])[address] [facility], [address] [place] [address] HCG.beta subunit IA 3rd IS Q non 07-09-2024 SERUM B HCG,3RD I.S. <[address] [facility] Comment on above: Result Comment: [...] trophoblastic or nontrophoblastic neoplasms. Performed By: #### 2 0415-6, 2842-3, 3016-3, 23556-9, 68015-0, CBC, 3024-7 ####[facility] ([id number])[address], [place] [address] Lutropin Qnon 07-09-2024 LUTEINIZING HORMONE 2.6 mIU/mL Normal [facility] Comment on above: Result Comment: NORMAL FEMALE Follicular 2.1-10.9 mIU/mL Mid Cycle 19.2-103 mIU/mL Luteal 1.2-12.9 mIU/mL [place] 10.9-58.6 mIU/mL Performed By: #### 2 0415-6, 2842-3, 3016-3, 64932-9, 85226-1, CBC, 3024-7 ####[facility] ([id number])[address], [place] [address] Prolactin [Mass/Vol]on 07-09 PROLACTIN 25.4 ng/mL Normal 3.3-26.7 [facility] Comment on above: Performed By: #### 2 0415-6, 2842-3, 3016-3, 22509-9, 12149-9, CBC, 3024-7 ####[facility] ([id number])[address], [place] [address] TSH Qnon 07-09-2024 TSH 3.82 uIU/mL Normal 0.49-4.67 [facility] Comment on above: Result Comment: NEW REFERENCE RANGE FOR PEDIATRIC PATIENTS Performed By: #### 2 0415-6, 2842-3, 3016-3, 47854-0, 57576-8, CBC, 3024-7 ####[facility] ([id number])[address] [place] [address] US PELVIC WITH TRANSVAGINALo n 11-25-2024 US PELVIC WITH TRANSVAGINAL US PELVIC WITH [...] Valero MD on 06/24/2024 7:12 PM Normal [facility] CBC AND AUTO DIFFon 06-21-20 24 ABSOLUTE BASOPHIL 0.1 X10E9/L Normal 0.0-0.[address] [facility] Comment on above: Performed By: #### P INR, CMP, CBCA, 3040-3, 82288-3 ####[facility] ([id number])[address] [place] [address] ABSOLUTE NEUTROPHIL 3.7 X10E9/L Normal 1.5-6.6 [facility] Comment on above: Performed By: #### P INR, CMP, CBCA, 3040-3, 55689-9 ####[facility] ([id number])[address] [place] [address] Basophils/100 WBC (Bld) 0.9 % Normal [facility] Comment on above: Performed By: #### P INR, CMP, CBCA, 3040-3, 65455-1 ####[facility] ([id number])[address] [place] [address] Eosinophils (Bld) [#/Vol] 0.3 10*3/uL Normal 0.0-0.4 [facility] Comment on above: Performed By: #### P INR, CMP, CBCA, 3040-3, 68923-7 ####[facility] ([id number])[address] [place] [address] Eosinophils/100 WBC (Bld) 4.2 % Normal [facility] Comment on above: Performed By: #### P INR, CMP, CBCA, 3040-3, 92968-1 ####[facility] ([id number])[address] [place] [address] Erythrocyte distribution width (RBC) [Ratio] 16.0 % High 11.5-15.0 [facility] Comment on above: Performed By: #### P INR, CMP, CBCA, 3040-3, 43605-7 ####[facility] ([id number])[address] [place] [address] Hematocrit (Bld) [Volume fraction] 37.6 % Normal 35-47 [facility] Comment on above: Performed By: #### P INR, CMP, CBCA, 3040-3, 49102-5 ####[facility] ([id number])[address] [place] [address] Hemoglobin (Bld) [Mass/Vol] 12.0 g/dL Normal 11.7-15.5 [facility] Comment on above: Performed By: #### P INR, CMP, CBCA, 3040-3, 77265-7 ####[facility] ([id number])[address] [place] [address] [place] [address] Lymphocytes (Bld) [#/Vol] 1.9 10*3/uL Normal 1.0-3.5 [facility] Comment on above: Performed By: #### P INR, CMP, CBCA, 3040-3, 37380-9 ####[facility] ([id number])[address] [place] [address] Lymphocytes/100 WBC (Bld) 29.8 % Normal [facility] Comment on above: Performed By: #### P INR, CMP, CBCA, 3040-3, 65908-7 ####[facility] ([id number])[address] [place] [address] MCH (RBC) [Entitic mass] 24.2 pg Low 27-34 [facility] Comment on above: Performed By: #### P INR, CMP, CBCA, 3040-3, 03191-9 ####[facility] ([id number])[address] [place] [address] MCHC (RBC) [Mass/Vol] 31.8 g/dL Low 32-36 [facility] Comment on above: Performed By: #### P INR, CMP, CBCA, 3040-3, 63277-4 ####[facility] ([id number])[address] [place] [address] MCV (RBC) [Entitic vol] 76 fL Low 80-100 [facility] Comment on above: Performed By: #### P INR, CMP, CBCA, 3040-3, 17047-3 ####[facility] ([id number])[address] [place] [address] Monocytes (Bld) [#/Vol] 0.5 10*3/uL Normal 0-0.9 [facility] Comment on above: Performed By: #### P INR, CMP, CBCA, 3040-3, 29067-0 ####[facility] ([id number])[address] [place] [address] Monocytes/100 WBC (Bld) 7.9 % Normal [facility] Comment on above: Performed By: #### P INR, CMP, CBCA, 3040-3, 08870-4 ####[facility] ([id number])[address] [place] [address] Neutrophils/100 WBC (Bld) 57.2 % Normal [facility] Comment on above: Performed By: #### P INR, CMP, CBCA, 3040-3, 45403-1 ####[facility] ([id number])[address] [place] [address] Platelet mean volume (Bld) [Entitic vol] 7.6 fL Normal 7-12 [facility] Comment on above: Performed By: #### P INR, CMP, CBCA, 3040-3, 05658-6 ####[facility] ([id number])[address] [place] [address] Platelets (Bld) [#/Vol] 408 10*3/uL Normal 150-450 [facility] Comment on above: Performed By: #### P INR, CMP, CBCA, 3040-3, 09981-3 ####[facility] ([id number])[address] [place] [address] RBC COUNT 4.95 X10E12/L Normal 3.80-5.20 [facility] Comment on above: Performed By: #### P INR, CMP, CBCA, 3040-3, 99443-7 ####[facility] ([id number])[address] [place] [address] 67385 WBC (Bld) [#/Vol] 6.4 10*3/uL Normal 4.0-11.[address] [facility] Comment on above: Performed By: #### P INR, CMP, CBCA, 3040-3, 46619-3 ####[facility] ([id number])[address] [place] [address] 21681 COMPREHENSIVE METABOLIC PANE Toribio 06-21-2024 Albumin [Mass/Vol] 4.1 g/dL Normal 3.2-5.[address] [facility] Comment on above: Performed By: #### P INR, CMP, CBCA, 3040-3, 59952-0 ####[facility] ([id number])[address] [place] [address] 91686 ALP [Catalytic activity/Vol] 71 U/L Normal 39-130 [facility] Comment on above: Performed By: #### P INR, CMP, CBCA, 3040-3, 66976-7 ####[facility] ([id number])[address] [place] [address] 34969 ALT [Catalytic activity/Vol] 44 U/L High 0-31 [facility] Comment on above: Performed By: #### P INR, CMP, CBCA, 3040-3, 20683-2 ####[facility] ([id number])[address] [place] [address] 67437 Anion gap [Moles/Vol] 9 mmol/L Normal 5-15 [facility] Comment on above: Performed By: #### P INR, CMP, CBCA, 3040-3, 48168-6 ####[facility] ([id number])[address] [place] [address] 52870 AST [Catalytic activity/Vol] 34 U/L Normal 0-41 [facility] Comment on above: Performed By: #### P INR, CMP, CBCA, 3040-3, 07340-2 ####[facility] ([id number])[address] [place] [address] 06990 Bilirubin [Mass/Vol] 0.5 mg/dL Normal 0.3-1.2 [facility] Comment on above: Performed By: #### P INR, CMP, CBCA, 3040-3, 02859-6 ####[facility] ([id number])[address] [place] [address] 79314 Calcium [Mass/Vol] 9.1 mg/dL Normal 8.5-10.[address] [facility] Comment on above: Performed By: #### P INR, CMP, CBCA, 3040-3, 26463-8 ####[facility] ([id number])[address] [place] [address] 66376 Chloride [Moles/Vol] 103 mmol/L Normal 98-109 [facility] Comment on above: Performed By: #### P INR, CMP, CBCA, 3040-3, 72941-2 ####[facility] ([id number])[address] [place] [address] 96527 CO2 [Moles/Vol] 24 mmol/L Normal 22-32 [facility] Comment on above: Performed By: #### P INR, CMP, CBCA, 3040-3, 90172-0 ####[facility] ([id number])[address] [place] [address] 09503 Creatinine [Mass/Vol] 0.68 mg/dL Normal 0.40-1.00 [facility] Comment on above: Result Comment: METH OD TRACEABLE TO IDMS STANDARD Performed By: #### P INR, CMP, CBCA, 3040-3, 09127-9 ####[facility] ([id number])[address] [place] [address] 97787 eGFR (CKD-EPI) NON-RACE DEPENDENT >90 Normal >59 [facility] Comment on above: Result Comment: Reported eGFR is based on the CKD-EPI 2020 equation that does not use a race coefficient. Performed By: #### P INR, CMP, CBCA, 3040-3, 74866-0 ####[facility] ([id number])[address] [place] [address] 57869 Glucose [Mass/Vol] 108 mg/dL High 65-[address] [facility] Comment on above: Performed By: #### P INR, CMP, CBCA, 3040-3, 18479-5 ####[facility] ([id number])[address] [place] [address] 43858 Potassium [Moles/Vol] 3.8 mmol/L Normal 3.5-5.0 [facility] Comment on above: Performed By: #### P INR, CMP, CBCA, 3040-3, 37596-9 ####[facility] ([id number])[address] [place] [address] 71728 Protein [Mass/Vol] 7.5 g/dL Normal 6.0-8.[address] [facility] Comment on above: Performed By: #### P INR, CMP, CBCA, 3040-3, 17307-5 ####[facility] ([id number])[address] [place] [address] 87763 Sodium [Moles/Vol] 136 mmol/L Normal 134-[address] [facility] Comment on above: Performed By: #### P INR, CMP, CBCA, 3040-3, 67417-3 ####[facility] ([id number])[address] [place] [address] 19586 Urea nitrogen [Mass/Vol] 10 mg/dL Normal 5-23 [facility] Comment on above: Performed By: #### P INR, CMP, CBCA, 3040-3, 66258-6 ####[facility] ([id number])[address] [place] [address] ABDOMEN AND PELVIS W CONT on [...] Bradley MD on 06/21/2024 3:20 PM Normal [facility] LIPASEon 06-21-2024 Lipase [Catalytic activity/Vol] 41 U/L High 17-40 [facility] Comment on above: Performed By: #### P INR, CMP, CBCA, 3040-3, 72881-1 ####[facility] ([id number])[address] [place] [address] 60573 PROTIME AND INRon 06-21-2024 INR Coag (PPP) [Relative time] 1.0 {INR} Normal 0.8-1.1 [facility] Comment on above: Performed By: #### P INR, CMP, CBCA, 3040-3, 36107-6 ####[facility] ([id number])[address] [place] [address] 53832 PT Coag (PPP) [Time] 11.6 s Normal 9.8-13.2 [facility] Comment on above: Result Comment: NEW REFERENCE RANGE Performed By: #### P INR, CMP, CBCA, 3040-3, 42434-9 ####[facility] ([id number])[address] [place] [address] 98849 URN MACROSCOPIC NURon 2023 BILIRUBIN JOURDAN Negative Normal NEG [facility] Comment on above: Performed By: #### N UM ####[facility] ([id number])[address] [place] [address], [place] [address] BLOOD/HGB JOURDAN Negative Normal NEG [facility] Comment on above: Performed By: #### N UM ####[facility] ([id number])[address] [place] [address] [place] [address] GLUCOSE JOURDAN Negative Normal NEG [facility] Comment on above: Performed By: #### N UM ####[facility] ([id number])[address] [place] [address], [place] [address] KETONES JOURDAN Negative Normal NEG [facility] Comment on above: Performed By: #### N UM ####[facility] ([id number])[address] [place] [address] [place] [address] LEUKOCYTE ESTERASE JOURDAN Negative Normal NEG [facility] Comment on above: Performed By: #### N UM ####[facility] ([id number])[address] [place] [address] [place] [address] NITRITE JOURDAN Negative Normal NEG [facility] Comment on above: Performed By: #### N UM ####[facility] ([id number])[address] [place] [address] [place] [address] PH JOURDAN 6.0 Normal 5.0-8.5 [facility] Comment on above: Performed By: #### N UM ####[facility] ([id number])[address] [place] [address] [place] [address] PROTEIN JOURDAN Negative Normal NEG [facility] Comment on above: Performed By: #### N UM ####[facility] ([id number])[address] [place] [address], [place] [address] SPECIFIC GRAVITY JOURDAN 1.010 Normal 1.003-1.035 [facility] Comment on above: Performed By: #### N UM ####[facility] ([id number])[address] [place] [address] 63168 UROBILINOGEN JOURDAN 0.2 eu/dL Normal <1.1 [facility] Comment on above: Performed By: #### N UM ####[facility] ([id number])[address] [place] [address] 26575 aPTT Coag (PPP) [Time]on aPTT Coag (Bld) [Time] 34 s Normal 26-37 [facility] Comment on above: Result Comment: NEW REFERENCE RANGE Performed By: #### P INR, CMP, CBCA, 3040-3, 24407-1 ####[facility] ([id number])[address] [place] [address] 48643 Cytologyon 06-19-2024 Cytology Normal [facility] Comment on above: Result Comment: [facility] [address] [place] [address] Gynecologic Cytology Consultation Patient Name:RAYA GONZALES:1980 (Age: 44)Gender:FTaken:4Reported:07/05/2024hysician(s):Gisela Cordova, [facility] ([phone])Copy To: Rec. #:[id number]: #[id number] Final Cytologic Interpretation ThinPrep Pap Test (Cervical): Satisfactory for evaluation. A transformation zone component is not identified via imaging-assisted review, using [employer] Thin Prep Imaging System, within 22 microscopic castillo of view. NEGATIVE FOR INTRAEPITHELIAL LESION OR MALIGNANCY. [facility]/07/05/2024 Interpretation performed at [facility], [address] [place] [address], License number: [id number]. 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 The Pap test is primarily effective for the diagnosis and prevention of squamous cell carcinoma. Regular screening is critical for prevention. ThinPrep liquid-based slides, which meet the Clerk Of Superior Court criteria for automated screening, have been screened by the ThinPrep Imaging System (as of 04/16/07) along with an additional manual rescreening by a home care manager and, if indicated, by a pathologist. HIGH RISK HPV W/GENOon 06-19 HPV 31+33+35+39+45+51+52+ 56+58+59+66+68 DNA JOSELUIS+probe Ql (Cvx) HPV SPECIMEN TYPE ThinPrep HPV 16 Negative (qualifier value) HPV 18 Negative (qualifier value) OTHER HIGH RISK HPV Negative (qualifier value) HPV types 31,33,35,39,45,52,56,5 8,59,66 and 68 DNA were undetectable. Normal [facility] Comment on above: Performed By: #### 7 1431-1 ####[facility] ([id number])[address] [place] [address] [place] [address] LAB ([id number])[address] [place] [address] Alpha 1 antitrypsin Nephelom etry [Mass/Vol]on 06-17-2024 ALPHA 1 ANTITRYPSIN 193 mg/dL Normal 83-199 [facility] Comment on above: Performed By: #### 2 6449-9, 50590-5, HA1C, IMGB, 79716-1, CBC, THYR, 6771-0, 2132-03 #### [facility] ([id number]) [address] [facility], [address] [place] [address] #### 63481-4 #### [facility] ([id number]) [address] [place] [address] Alpha 1 antitrypsin phenotyp ing [Interp]on 06-17-2024 Ddgtu-2-Kxtqdnoacnv Phenotype MM Normal [facility] Comment on above: Result Comment: NOTE A single M isoform is detected. In the context of a normal dqeaw-1-jehqianzdjz concentration, this is consistent with an MM phenotype. ADDITIONAL INFORMATION Method: Isoelectric Focusing, This assay identifies the phenotype of the circulating qbpuf-2-resatwafljt (A1A) protein. If the patient is on replacement therapy or has been recently transfused, the phenotype will detect patient and replacement or transfused plasma A1A protein. This test also cannot detect a null allele which could be responsible for an A1A deficiency. Performed By: #### 2 6449-9, 43313-1, HA1C, IMGB, 89935-7, CBC, THYR, 6771-0, 2132-03 ####[facility] ([id number])[address] [place] [address], [address] [place] [address]#### 98024-7 ####[facility] ([id number])[address] [place] [address] 66888 Vgzcp-9-Hgfdnlopnqh, S 180 mg/dL Normal 100 - 190 [facility] Comment on above: Result Comment: NOTE ADDITIONAL INFORMATION Method: Nephelometry Test Performed by: [address] [address] Nonprofit Financial Controller: Arabella Trejo Ph.D.; CLIA# [id number] Performed By: #### 2 6449-9, 52631-4, HA1C, IMGB, 34593-9, CBC, THYR, 6771-0, 2132-03 ####[facility] ([id number])[address] [place] [address], [address] [address]#### 86375-8 ####[facility] ([id number])[address] [place] [address] B. burgdorferi IgG+IgM Qn (S )on 06-17-2024 LYME TOTAL <0.2 Normal <0.9 [facility] Comment on above: Result Comment: Interpretation-------- <0.9 Negative 0.9 - 1.0 Equivocal >1.0 Positive No serological evidence of Borrelia infection.A non-reactive result does not exclude the possibility of Borrelia infection and cannot exclude early infection with B.burgdorferi. If Lyme borreliosis is suspected, a second sample should be collected and tested 2-4 weeks later. Performed By: #### 2 6449-9, 44412-6, HA1C, IMGB, 30946-5, CBC, THYR, 6771-0, 2132-03 ####[facility] ([id number])[address] [place] [address]#### 26564-2 ####[facility] ([id number])[address] [place] [address] 50261 COMPLETE BLOOD COUNTon 06-17 Erythrocyte distribution width (RBC) [Ratio] 16.2 % High 11.5-15.0 [facility] Comment on above: Performed By: #### 2 6449-9, 25799-2, HA1C, IMGB, 66309-8, CBC, THYR, 6771-0, 2132-03 #### [facility] ([id number]) [address] [place] [address], [address] [address] #### 73555-3 #### [facility] ([id number]) [address] [place] [address] Hematocrit (Bld) [Volume fraction] 41.8 % Normal 35-47 [facility] Comment on above: Performed By: #### 2 6449-9, 40389-9, HA1C, IMGB, 20121-9, CBC, THYR, 6771-0, 2132-03 #### [facility] ([id number]) [address], [address] [place] [address] #### 85755-1 #### [facility] ([id number]) [address] [place] [address] Hemoglobin (Bld) [Mass/Vol] 13.2 g/dL Normal 11.7-15.5 [facility] Comment on above: Performed By: #### 2 6449-9, 38196-4, HA1C, IMGB, 06253-2, CBC, THYR, 6771-0, 2132-03 #### [facility] ([id number]) [address], [address] [place] [address] #### 82425-4 #### [facility] ([id number]) [address] [place] [address] MCH (RBC) [Entitic mass] 24.2 pg Low 27-34 [facility] Comment on above: Performed By: #### 2 6449-9, 50414-2, HA1C, IMGB, 86086-8, CBC, THYR, 6771-0, 2132-03 #### [facility] ([id number]) [address], [address] [place] [address] #### 79772-1 #### [facility] ([id number]) [address] [place] [address] 04744 MCHC (RBC) [Mass/Vol] 31.6 g/dL Low 32-36 [facility] Comment on above: Performed By: #### 2 6449-9, 28834-3, HA1C, IMGB, 31367-1, CBC, THYR, 6771-0, 2132-03 #### [facility] ([id number]) [address], [address] [place] [address] #### 12326-3 #### [facility] ([id number]) [address] [place] [address] 09823 MCV (RBC) [Entitic vol] 77 fL Low 80-100 [facility] Comment on above: Performed By: #### 2 6449-9, 68572-0, HA1C, IMGB, 99500-2, CBC, THYR, 6771-0, 2132-03 #### [facility] ([id number]) [address], [address] [place] [address] #### 43340-8 #### [facility] ([id number]) [address] [place] [address] 96938 Platelet mean volume (Bld) [Entitic vol] 8.4 fL Normal 7-12 [facility] Comment on above: Performed By: #### 2 6449-9, 43577-2, HA1C, IMGB, 53476-7, CBC, THYR, 6771-0, 2132-03 #### [facility] ([id number]) [address], [address] [place] [address] #### 42001-6 #### [facility] ([id number]) [address] [place] [address] 76497 Platelets (Bld) [#/Vol] 460 10*3/uL High 150-450 [facility] Comment on above: Performed By: #### 2 6449-9, 54371-5, HA1C, IMGB, 98191-3, CBC, THYR, 6771-0, 2132-03 #### [facility] ([id number]) [address], [address] [place] [address] #### 19243-8 #### [facility] ([id number]) [address] [place] [address] 96814 RBC COUNT 5.45 X10E12/L High 3.80-5.20 [facility] Comment on above: Performed By: #### 2 6449-9, 99490-9, HA1C, IMGB, 59289-1, CBC, THYR, 6771-0, 2132-03 #### [facility] ([id number]) [address] [facility], [address] [place] [address] #### 93211-8 #### [facility] ([id number]) [address] [place] [address] WBC (Bld) [#/Vol] 12.1 10*3/uL High 4.0-11.0 [facility] Comment on above: Performed By: #### 2 6449-9, 00191-1, HA1C, IMGB, 96425-1, CBC, THYR, 6771-0, 2132-03 #### [facility] ([id number]) [address] [facility], [address] [place] [address] #### 90053-2 #### [facility] ([id number]) [address] [place] [address] 15143 EOSINOPHIL, TOTALon 11-18-20 24 Eosinophils (Bld) [#/Vol] 0.2 10*3/uL Normal 0.0-0.4 [facility] Comment on above: Performed By: #### 2 6449-9, 05709-9, HA1C, IMGB, 47681-6, CBC, THYR, 6771-0, 2132-03 #### [facility] ([id number]) [address], [address] [place] [address] #### 02570-1 #### [facility] ([id number]) [address] [place] [address] HGB A1C (GLYCO-HGB)on 2023 Glucose [Mass/Vol] 169 mg/dL Normal [facility] Comment on above: Performed By: #### 2 6449-9, 95382-5, HA1C, IMGB, 51387-8, CBC, THYR, 6771-0, 2132-03 #### [facility] ([id number]) [address] [place] [address] #### 48546-3 #### [facility] ([id number]) [address] [place] [address] 62012 HbA1c (Bld) [Mass fraction] 7.5 % High 4.4-5.6 [facility] Comment on above: Result Comment: NOTE ADA Guidelines Result HgbA1c Normal : less than 5.7 % Prediabetes : 5.7 % to 6.4 % Diabetes : > 6.4 % Use with caution in patients with abnormal hemoglobin variants as the half-life of red blood cells and in vivo glycation rates are affected. Performed By: #### 2 6449-9, 51018-5, HA1C, IMGB, 80403-4, CBC, THYR, 6771-0, 2132-03 #### [facility] ([id number]) [address] [place] [address], [facility] [address] [place] [address] #### 41474-6 #### [facility] ([id number]) [address] [place] [address] IMMUNOGLOBULINSon 06-17-2024 IgA [Mass/Vol] 181 mg/dL Normal 68-378 [facility] Comment on above: Performed By: #### 2 6449-9, 36172-1, HA1C, IMGB, 28140-0, CBC, THYR, 6771-0, 2132-03 #### [facility] ([id number]) [address], [address] [place] [address] #### 95985-0 #### [facility] ([id number]) [address] [place] [address] IgG [Mass/Vol] 672 mg/dL Normal 635-1741 [facility] Comment on above: Performed By: #### 2 6449-9, 91508-1, HA1C, IMGB, 21885-8, CBC, THYR, 6771-0, 2132-03 #### [facility] ([id number]) [address] [facility], [address] [place] [address] #### 49418-5 #### [facility] ([id number]) [address] [place] [address] 75120 IgM [Mass/Vol] 165 mg/dL Normal 45-281 [facility] Comment on above: Performed By: #### 2 6449-9, 01739-2, HA1C, IMGB, 97856-2, CBC, THYR, 6771-0, 2132-03 #### [facility] ([id number]) [address] [facility], [address] [place] [address] #### 32068-9 #### [facility] ([id number]) [address] [place] [address] 01225 Nuclear Ab IA Ql (S)on 06-17 RODRIGO Screen w/reflex Negative Normal NEG [facility] Comment on above: Result Comment: Testing performed using multiplex flow immunoassay. Eleven different antigens associated with systemic autoimmune diseases (dsDNA,Sm,Sm/DISPUTE RESOLUTION ANALYST,DISPUTE RESOLUTION ANALYST,Chromatin, SSA,SSB,Maria Guadalupe-1,Scl70,Ribo P,Centromere B) are included in this screening test. Performed By: #### 2 6449-9, 45456-4, HA1C, IMGB, 25331-6, CBC, THYR, 6771-0, 2132-03 ####[facility] ([id number])[address] [place] [address]#### 50324-3 ####[facility] ([id number])[address] [place] [address] RESPIRATORY PANELon 06-17-20 24 ALTERNARIA ALTERNATA <0.10 Normal <0.10 [facility] Comment on above: Result Comment: Clas s 0: Normal Performed By: #### R AP ####[facility] ([id number])[address], [place] [address] ASPERGILLUS FUMIGATUS <0.10 Normal <0.10 [facility] Comment on above: Result Comment: Clas s 0: Normal Performed By: #### R AP ####[facility] ([id number])[address], [place] [address] BERMUDA GRASS <0.10 Normal <0.10 [facility] Comment on above: Result Comment: Clas s 0: Normal Performed By: #### R AP ####[facility] ([id number])[address], [place] [address] BOX ELDER <0.10 Normal <0.10 [facility] Comment on above: Result Comment: Clas s 0: Normal Performed By: #### R AP ####[facility] ([id number])[address], [place] [address] CAT DANDER <0.10 Normal <0.10 [facility] Comment on above: Result Comment: Clas s 0: Normal Performed By: #### R AP ####[facility] ([id number])[address] [place] [address] CLADOSPORIUM HERB <0.10 Normal <0.10 [facility] Comment on above: Result Comment: Clas s 0: Normal Performed By: #### R AP ####[facility] ([id number])[address], [address], [place] [address] COCKLEBUR <0.10 Normal <0.10 [facility] Comment on above: Result Comment: Clas s 0: Normal Performed By: #### R AP ####[facility] ([id number])[address], [place] [address] COCKROACH 0.14 kU/L High <0.10 [facility] Comment on above: Result Comment: Clas s 0/1: Low level of Allergy, ongoing sensitization Performed By: #### R AP ####[facility] ([id number])[address], [address], [place] [address] COMMON PIGWEED <0.10 Normal <0.10 [facility] Comment on above: Result Comment: Clas s 0: Normal Performed By: #### R AP ####[facility] ([id number])[address], [address], [place] [address] COMMON RAGWEED <0.10 Normal <0.10 [facility] Comment on above: Result Comment: Clas s 0: Normal Performed By: #### R AP ####[facility] ([id number])[address], [place] [address] COMMON SILVER BIRCH <0.10 Normal <0.10 [facility] Comment on above: Result Comment: Clas s 0: Normal Performed By: #### R AP ####[facility] ([id number])[address], [place] [address] COT[place]WOOD <0.10 Normal <0.10 [facility] Comment on above: Result Comment: Clas s 0: Normal Performed By: #### R AP ####[facility] ([id number])[address], [place] [address] DERMATOPH FARINAE <0.10 Normal <0.10 [facility] Comment on above: Result Comment: Clas s 0: Normal Performed By: #### R AP ####[facility] ([id number])[address], [place] [address] DERMATOPH PTERONYSS <0.10 Normal <0.10 [facility] Comment on above: Result Comment: Clas s 0: Normal Performed By: #### R AP ####[facility] ([id number])[address], [place] [address] DOG DANDER <0.10 Normal <0.10 [facility] Comment on above: Result Comment: Clas s 0: Normal Performed By: #### R AP ####[facility] ([id number])[address] [address] [place] [address] ELM <0.10 Normal <0.10 [facility] Comment on above: Result Comment: Clas s 0: Normal Performed By: #### R AP ####[facility] ([id number])[address] [address] [place] [id number] [place] QTR <0.10 Normal <0.[address] [facility] Comment on above: Result Comment: Clas s 0: Normal Performed By: #### R AP ####[facility] ([id number])[address], [place] [address] IGE 31 IU/mL Normal 0-165 [facility] Comment on above: Performed By: #### R AP ####[facility] ([id number])[address], [address] [place] [address], [place] [address] [place] <0.10 Normal <0.10 [facility] Comment on above: Result Comment: Clas s 0: Normal Performed By: #### R AP ####[facility] ([id number])[address], [place] [address] [place] <0.10 Normal <0.10 [facility] Comment on above: Result Comment: Clas s 0: Normal Performed By: #### R AP ####[facility] ([id number])[address], [address] [place] [address] [place] GUR[place] <0.10 Normal <0.10 [facility] Comment on above: Result Comment: Clas s 0: Normal Performed By: #### R AP ####[facility] ([id number])[address], [address], [place] [address] [place] <0.10 Normal <0.10 [facility] Comment on above: Result Comment: Clas s 0: Normal Performed By: #### R AP ####[facility] ([id number])[address], [place] [address] MOUSE URINE PROTEINS <0.10 Normal <0.10 [facility] Comment on above: Result Comment: Clas s 0: Normal Performed By: #### R AP ####[facility] ([id number])[address], [place] [address] [place] <0.10 Normal <0.10 [facility] Comment on above: Result Comment: Clas s 0: Normal Performed By: #### R AP ####[facility] ([id number])[address], [place] [address] [place] <0.10 Normal <0.10 [facility] Comment on above: Result Comment: Clas s 0: Normal Performed By: #### R AP ####[facility] ([id number])[address], [address], [place] [address] NETTLE <0.10 Normal <0.10 [facility] Comment on above: Result Comment: Clas s 0: Normal Performed By: #### R AP ####[facility] ([id number])[address], [address] [address] OAK <0.10 Normal <0.10 [facility] Comment on above: Result Comment: Clas s 0: Normal Performed By: #### R AP ####[facility] ([id number])[address], [address] [place] [address] PECAN HICKORY TREE <0.10 Normal <0.[address] [facility] Comment on above: Result Comment: Clas s 0: Normal Performed By: #### R AP ####[facility] ([id number])[address], [address], [place] [address] PENICILLIUM CHRYSOGENUM <0.10 Normal <0.10 [facility] Comment on above: Result Comment: Clas s 0: Normal Performed By: #### R AP ####[facility] ([id number])[address], [address], [place] [address] ROUGH MARSHELDER <0.10 Normal <0.10 [facility] Comment on above: Result Comment: Clas s 0: Normal Performed By: #### R AP ####[facility] ([id number])[address], [address] [place] [address] S[place] RICK THISTLE <0.10 Normal <0.10 [facility] Comment on above: Result Comment: Clas s 0: Normal Performed By: #### R AP ####[facility] ([id number])[address], [address] [place] [address] SHEEP SORREL <0.10 Normal <0.10 [facility] Comment on above: Result Comment: Clas s 0: Normal Performed By: #### R AP ####[facility] ([id number])[address], [address] [place] [address] ANAI <0.10 Normal <0.10 [facility] Comment on above: Result Comment: Clas s 0: Normal Performed By: #### R AP ####[facility] ([id number])[address], [address] [place] [address] [place] TREE POLLEN <0.10 Normal <0.[address] [facility] Comment on above: Result Comment: Clas s 0: Normal Performed By: #### R AP ####[facility] ([id number])[address], [address], [place] [address] WHITE LAZARO <0.10 Normal <0.10 [facility] Comment on above: Result Comment: Clas s 0: Normal Performed By: #### R AP ####[facility] ([id number])[address], [address] [place] [address] THYROID PROFILEon 06-17-2024 Free T4 [Mass/Vol] 1.06 ng/dL Normal 0.61-1.[address] [facility] Comment on above: Performed By: #### 2 6449-9, 92176-3, HA1C, IMGB, 95670-3, CBC, THYR, 6771-0, 2132-03 #### [facility] ([id number]) [address], [address] [place] [address] #### 72308-2 #### [facility] ([id number]) [address] [place] [address] TSH 4.33 uIU/mL Normal 0.49-4.67 [facility] Comment on above: Performed By: #### 2 6449-9, 27395-8, HA1C, IMGB, 65460-1, CBC, THYR, 6771-0, 2132-03 #### [facility] ([id number]) [address], [address] [place] [address] #### 81999-0 #### [facility] ([id number]) [address] [facility], [place] [address] VITAMIN B12on 06-17-2024 Cobalamin (Vitamin B12) [Mass/Vol] 460 pg/mL Normal 180-914 [facility] Comment on above: Performed By: #### 2 6449-9, 14218-0, HA1C, IMGB, 18465-9, CBC, THYR, 6771-0, 2132-9 ####[facility] ([id number])[address] [facility], [address] [place] [address]#### 85761-7 ####[facility] ([id number])[address] [place] [address] HERPES SIMPLEX VIRAL PCRon 08-12-2023 HERPES SIMPLEX VIRAL PCR SPECIMEN SOURCE VAGINAL LESION HERPES SIMPLEX 1 PCR Negative (qualifier value) HSV 1 DNA Not Detected HERPES SIMPLEX 2 PCR Negative (qualifier value) HSV 2 DNA Not Detected Normal [facility] Comment on above: Performed By: #### H SV12 #### [facility] ([id number]) [facility], [address] [place] [address] MAMM DIAGNOSTIC BILATERAL W CADon 03-05-2024 MAMM [...] PM 1 b MAMM 1 YR Normal [facility] US BREAST LT LIMITEDon 03-05 US [...] 2:12 PM 1 MAMM 1 YR Normal [facility] MR BRAIN W WO CONTon 07-31-2 024 MR BRAIN W WO CONT MR [...] clear. Temporal bones are clear. IMPRESSION: * Atlg-nb-tqnxfemx burden of deep white matter signal changes, similar to prior, and suggestive of a demyelinating process. No acutely enhancing lesions. 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 MR orbits is reported separately. Approved by Lucila Tapia MD on 02/28/2024 8:31 AM Aneesh Barlow have personally reviewed the image(s) and agree with and/or edited the report Finalized by Aneesh Mendez on 02/28/2024 11:47 AM [facility] MR ORBIT W WO CONTon 024 [...] Aneesh Mendez on 02/28/2024 1:46 PM Normal [facility] MR CERVICAL SPINE W WO CONTo [...] Early MD on 02/27/2024 3:15 PM Normal [facility] CT BRAIN WO CONTon CT BRAIN [...] Valero MD on 01/30/2024 4:36 PM Normal [facility] Fecal Panc Elastaseon 2023 Pancreatic Elastase >800 Normal >=100 [facility] Comment on above: Result Comment: (NOT E) REFERENCE INTERVAL: Pancreatic Elastase Fecal by Immunoassay Less than 100 ug/g............Severe insufficiency 100 - 199 ug/g................Moderate insufficiency 200 ug/g or greater...........Normal INTERPRETIVE INFORMATION: Pancreatic Elastase Fecal by Immunoassay Reference intervals do not apply for infants less than one month old. Performed By: [facility] [address] [place] [address] [employer] Pick[employer] Equipment Operator: Landon Winters MD, PhD CLIA Number: [id number] Performed By: #### A PEF #### [facility] [address] [place] [address] Nonprofit Financial Controller: Casey Howard MD CBC AND AUTO DIFFon 01-03-20 24 ABSOLUTE BASOPHIL 0.1 X10E9/L Normal 0.0-0.[address] [facility] Comment on above: Performed By: #### 2 6449-9, 34927-9, HA1C, IMGB, 31573-8, CBC, THYR, 6771-0, 2132-03 #### [facility] ([id number]) [address] [place] [address], [address] [place] [address] #### 26904-0 #### [facility] ([id number]) [address] [place] [address], [place] [address] ABSOLUTE NEUTROPHIL 5.8 X10E9/L Normal 1.5-6.6 [facility] Comment on above: Performed By: #### 2 6449-9, 64763-4, HA1C, IMGB, 74803-1, CBC, THYR, 6771-0, 2132-03 #### [facility] ([id number]) [address] [place] [address], [address] [place] [address] #### 22084-3 #### [facility] ([id number]) [address] [place] [address] Basophils/100 WBC (Bld) 0.9 % Normal [facility] Comment on above: Performed By: #### 2 6449-9, 98712-1, HA1C, IMGB, 34319-9, CBC, THYR, 6771-0, 2132-03 #### [facility] ([id number]) [address] [facility], [address] [place] [address] #### 15001-4 #### [facility] ([id number]) [address] [place] [address] Eosinophils (Bld) [#/Vol] 0.3 10*3/uL Normal 0.0-0.4 [facility] Comment on above: Performed By: #### 2 6449-9, 69612-3, HA1C, IMGB, 55770-4, CBC, THYR, 6771-0, 2132-03 #### [facility] ([id number]) [address] [facility], [address] [place] [address] #### 39396-8 #### [facility] ([id number]) [address] [place] [address] Eosinophils/100 WBC (Bld) 3.5 % Normal [facility] Comment on above: Performed By: #### 2 6449-9, 43379-1, HA1C, IMGB, 87885-4, CBC, THYR, 6771-0, 2132-03 #### [facility] ([id number]) [address] [facility], [address] [place] [address] #### 39827-4 #### [facility] ([id number]) [address] [place] [address] Erythrocyte distribution width (RBC) [Ratio] 17.0 % High 11.5-15.0 [facility] Comment on above: Performed By: #### 2 6449-9, 81517-5, HA1C, IMGB, 34479-6, CBC, THYR, 6771-0, 2132-03 #### [facility] ([id number]) [address], [address] [place] [address] #### 09389-2 #### [facility] ([id number]) [address] [place] [address] Hematocrit (Bld) [Volume fraction] 40.0 % Normal 35-47 [facility] Comment on above: Performed By: #### 2 6449-9, 23352-3, HA1C, IMGB, 35769-1, CBC, THYR, 6771-0, 2132-03 #### [facility] ([id number]) [address], [address] [place] [address] #### 22454-0 #### [facility] ([id number]) [address] [place] [address] Hemoglobin (Bld) [Mass/Vol] 13.1 g/dL Normal 11.7-15.5 [facility] Comment on above: Performed By: #### 2 6449-9, 98077-2, HA1C, IMGB, 84651-7, CBC, THYR, 6771-0, 2132-03 #### [facility] ([id number]) [address], [address] [place] [address] #### 55143-6 #### [facility] ([id number]) [address] [place] [address] Lymphocytes (Bld) [#/Vol] 1.6 10*3/uL Normal 1.0-3.5 [facility] Comment on above: Performed By: #### 2 6449-9, 92969-1, HA1C, IMGB, 81823-9, CBC, THYR, 6771-0, 2132-03 #### [facility] ([id number]) [address], [address] [place] [address] #### 95971-4 #### [facility] ([id number]) [address] [place] [address] Lymphocytes/100 WBC (Bld) 19.3 % Normal [facility] Comment on above: Performed By: #### 2 6449-9, 18892-5, HA1C, IMGB, 94012-7, CBC, THYR, 6771-0, 2132-03 #### [facility] ([id number]) [address], [address] [place] [address] #### 61134-9 #### [facility] ([id number]) [address] [place] [address] MCH (RBC) [Entitic mass] 26.3 pg Low 27-34 [facility] Comment on above: Performed By: #### 2 6449-9, 11348-4, HA1C, IMGB, 98199-5, CBC, THYR, 6771-0, 2132-03 #### [facility] ([id number]) [address], [address] [place] [address] #### 18741-2 #### [facility] ([id number]) [address] [place] [address] MCHC (RBC) [Mass/Vol] 32.8 g/dL Normal 32-36 [facility] Comment on above: Performed By: #### 2 6449-9, 93222-2, HA1C, IMGB, 47450-6, CBC, THYR, 6771-0, 2132-03 #### [facility] ([id number]) [address], [address] [place] [address] #### 52478-2 #### [facility] ([id number]) [address] [place] [address]38 MCV (RBC) [Entitic vol] 80 fL Normal 80-100 [facility] Comment on above: Performed By: #### 2 6449-9, 99771-4, HA1C, IMGB, 76578-3, CBC, THYR, 6771-0, 2132-03 #### [facility] ([id number]) [address], [address] [place] [address] #### 44046-3 #### [facility] ([id number]) [address] [place] [address] Monocytes (Bld) [#/Vol] 0.5 10*3/uL Normal 0-0.9 [facility] Comment on above: Performed By: #### 2 6449-9, 02017-1, HA1C, IMGB, 07184-0, CBC, THYR, 6771-0, 2132-03 #### [facility] ([id number]) [address], [address] [place] [address] #### 32861-4 #### [facility] ([id number]) [address] [place] [address]33 Monocytes/100 WBC (Bld) 5.7 % Normal [facility] Comment on above: Performed By: #### 2 6449-9, 84279-4, HA1C, IMGB, 41860-9, CBC, THYR, 6771-0, 2132-03 #### [facility] ([id number]) [address], [address] [place] [address] #### 19516-1 #### [facility] ([id number]) [address] [place] [address] Neutrophils/100 WBC (Bld) 70.6 % Normal [facility] Comment on above: Performed By: #### 2 6449-9, 85625-8, HA1C, IMGB, 76889-5, CBC, THYR, 6771-0, 2132-03 #### [facility] ([id number]) [address], [address] [place] [address] #### 50809-7 #### [facility] ([id number]) [address] [place] [address]3387 Platelet mean volume (Bld) [Entitic vol] 8.1 fL Normal 7-12 [facility] Comment on above: Performed By: #### 2 6449-9, 75631-0, HA1C, IMGB, 60935-6, CBC, THYR, 6771-0, 2132-03 #### [facility] ([id number]) [address], [address] [place] [address] #### 27205-9 #### [facility] ([id number]) [address] [place] [address] Platelets (Bld) [#/Vol] 355 10*3/uL Normal 150-450 [facility] Comment on above: Performed By: #### 2 6449-9, 62631-6, HA1C, IMGB, 18366-9, CBC, THYR, 6771-0, 2132-03 #### [facility] ([id number]) [address], [address] [place] [address] #### 31764-6 #### [facility] ([id number]) [address] [place] [address] 14706 RBC COUNT 5.00 X10E12/L Normal 3.80-5.20 [facility] Comment on above: Performed By: #### 2 6449-9, 93020-8, HA1C, IMGB, 59062-9, CBC, THYR, 6771-0, 2132-03 #### [facility] ([id number]) [address], [address] [place] [address] #### 74975-0 #### [facility] ([id number]) [address] [place] [address]3072 WBC (Bld) [#/Vol] 8.3 10*3/uL Normal 4.0-11.[address] [facility] Comment on above: Performed By: #### 2 6449-9, 76012-2, HA1C, IMGB, 68979-4, CBC, THYR, 6771-0, 2132-03 #### [facility] ([id number]) [address] [facility], [address] [place] [address] #### 97248-0 #### [facility] ([id number]) [address] [place] [address] COMPREHENSIVE METABOLIC PANE Toribio 01-03-2024 Albumin [Mass/Vol] 4.3 g/dL Normal 3.2-5.[address] [facility] Comment on above: Performed By: #### 2 6449-9, 55734-2, HA1C, IMGB, 44745-6, CBC, THYR, 6771-0, 2132-03 #### [facility] ([id number]) [address] [facility], [address] [place] [address] #### 62494-0 #### [facility] ([id number]) [address] [place] [address] 14334 ALP [Catalytic activity/Vol] 77 U/L Normal 39-130 [facility] Comment on above: Performed By: #### 2 6449-9, 28180-4, HA1C, IMGB, 10189-4, CBC, THYR, 6771-0, 2132-03 #### [facility] ([id number]) [address] [facility], [address] [place] [address] #### 12836-5 #### [facility] ([id number]) [address], [place] [address] ALT [Catalytic activity/Vol] 33 U/L High 0-31 [facility] Comment on above: Performed By: #### 2 6449-9, 84977-2, HA1C, IMGB, 22750-1, CBC, THYR, 6771-0, 2132-03 #### [facility] ([id number]) [address], [address] [place] [address] #### 70540-0 #### [facility] ([id number]) [address] [place] [address] 79718 Anion gap [Moles/Vol] 12 mmol/L Normal 5-15 [facility] Comment on above: Performed By: #### 2 6449-9, 80112-1, HA1C, IMGB, 38665-3, CBC, THYR, 6771-0, 2132-03 #### [facility] ([id number]) [address], [address] [place] [address] #### 27608-3 #### [facility] ([id number]) [address] [place] [address] 59360 AST [Catalytic activity/Vol] 24 U/L Normal 0-41 [facility] Comment on above: Performed By: #### 2 6449-9, 82657-5, HA1C, IMGB, 20911-9, CBC, THYR, 6771-0, 2132-03 #### [facility] ([id number]) [address], [address] [place] [address] #### 79424-4 #### [facility] ([id number]) [address] [place] [address] 08822 Bilirubin [Mass/Vol] 0.3 mg/dL Normal 0.3-1.2 [facility] Comment on above: Performed By: #### 2 6449-9, 45373-2, HA1C, IMGB, 30068-7, CBC, THYR, 6771-0, 2132-03 #### [facility] ([id number]) [address], [address] [place] [address] #### 09938-9 #### [facility] ([id number]) [address] [place] [address] 16675 Calcium [Mass/Vol] 8.8 mg/dL Normal 8.5-10.[address] [facility] Comment on above: Performed By: #### 2 6449-9, 94188-8, HA1C, IMGB, 38282-6, CBC, THYR, 6771-0, 2132-03 #### [facility] ([id number]) [address], [address] [place] [address] #### 10689-5 #### [facility] ([id number]) [address] [place] [address] 40249 Chloride [Moles/Vol] 101 mmol/L Normal 98-109 [facility] Comment on above: Performed By: #### 2 6449-9, 58723-7, HA1C, IMGB, 80107-4, CBC, THYR, 6771-0, 2132-03 #### [facility] ([id number]) [address], [address] [place] [address] #### 56230-4 #### [facility] ([id number]) [address] [place] [address] 88185 CO2 [Moles/Vol] 22 mmol/L Normal 22-32 [facility] Comment on above: Performed By: #### 2 6449-9, 14252-6, HA1C, IMGB, 79841-9, CBC, THYR, 6771-0, 2132-03 #### [facility] ([id number]) [address], [address] [place] [address] #### 15215-8 #### [facility] ([id number]) [address] [place] [address] 01111 Creatinine [Mass/Vol] 0.67 mg/dL Normal 0.40-1.00 [facility] Comment on above: Result Comment: METH OD TRACEABLE TO IDMS STANDARD Performed By: #### 2 6449-9, 07952-7, HA1C, IMGB, 25968-8, CBC, THYR, 6771-0, 2132-03 #### [facility] ([id number]) [address] [place] [address], [address] [place] [address] #### 20501-4 #### [facility] ([id number]) [address] [place] [address] 14983 eGFR (CKD-EPI) NON-RACE DEPENDENT >90 Normal >59 [facility] Comment on above: Result Comment: Reported eGFR is based on the CKD-EPI 2020 equation that does not use a race coefficient. Performed By: #### 2 6449-9, 75592-6, HA1C, IMGB, 47067-5, CBC, THYR, 6771-0, 2132-03 #### [facility] ([id number]) [address] [place] [address], [address] [address] #### 84906-8 #### [facility] ([id number]) [address] [place] [address] 84304 Glucose [Mass/Vol] 165 mg/dL High 65-[address] [facility] Comment on above: Performed By: #### 2 6449-9, 08231-9, HA1C, IMGB, 24406-4, CBC, THYR, 6771-0, 2132-03 #### [facility] ([id number]) [address] [place] [address], [address] [address] #### 76924-2 #### [facility] ([id number]) [address] [place] [address] 12693 Potassium [Moles/Vol] 4.0 mmol/L Normal 3.5-5.0 [facility] Comment on above: Performed By: #### 2 6449-9, 15933-2, HA1C, IMGB, 19029-3, CBC, THYR, 6771-0, 2132-03 #### [facility] ([id number]) [address], [address] [place] [address] #### 35854-6 #### [facility] ([id number]) [address] [place] [address] 00299 Protein [Mass/Vol] 7.8 g/dL Normal 6.0-8.[address] [facility] Comment on above: Performed By: #### 2 6449-9, 24866-2, HA1C, IMGB, 27513-6, CBC, THYR, 6771-0, 2132-03 #### [facility] ([id number]) [address] [facility], [address] [place] [address] #### 05208-4 #### [facility] ([id number]) [address] [place] [address] 33798 Sodium [Moles/Vol] 135 mmol/L Normal 134-[address] [facility] Comment on above: Performed By: #### 2 6449-9, 36944-7, HA1C, IMGB, 02847-0, CBC, THYR, 6771-0, 2132-03 #### [facility] ([id number]) [address] [place] [address] #### 34422-3 #### [facility] ([id number]) [address] [place] [address] 33285 Urea nitrogen [Mass/Vol] 14 mg/dL Normal 5-23 [facility] Comment on above: Performed By: #### 2 6449-9, 28743-4, HA1C, IMGB, 48981-3, CBC, THYR, 6771-0, 2132-03 #### [facility] ([id number]) [address] [facility], [address] [place] [address] #### 89113-2 #### [facility] ([id number]) [address] [facility], [place] [address] CT ABDOMEN AND PELVIS WO CON Ton [...] Lawson MD on 01/03/2024 10:20 PM Normal [facility] HCG ( test) Ql (U)o n 01-03-2024 Beta HCG ( test) Ql (U) Negative Normal NEG [facility] Comment on above: Performed By: #### 2 6449-9, 71514-6, HA1C, IMGB, 15974-7, CBC, THYR, 6771-0, 2132-03 #### [facility] ([id number]) [address] [facility], [address] [place] [address] #### 74365-4 #### [facility] ([id number]) [address] [facility], [place] [address] URN MACROSCOPIC NURon 2023 BILIRUBIN JOURDAN Negative Normal NEG [facility] Comment on above: Performed By: #### 2 6449-9, 71867-1, HA1C, IMGB, 54128-4, CBC, THYR, 6771-0, 2132-03 #### [facility] ([id number]) [address], [address] [place] [address] #### 38998-8 #### [facility] ([id number]) [address] [place] [address] BLOOD/HGB JOURDAN Trace Abnormal NEG [facility] Comment on above: Performed By: #### 2 6449-9, 40244-5, HA1C, IMGB, 36593-9, CBC, THYR, 6771-0, 2132-03 #### [facility] ([id number]) [address], [address] [place] [address] #### 18479-7 #### [facility] ([id number]) [address] [place] [address] GLUCOSE JOURDAN Negative Normal NEG [facility] Comment on above: Performed By: #### 2 6449-9, 74716-2, HA1C, IMGB, 63641-9, CBC, THYR, 6771-0, 2132-03 #### [facility] ([id number]) [address], [address] [place] [address] #### 91794-5 #### [facility] ([id number]) [address] [place] [address] KETONES JOURDAN Negative Normal NEG [facility] Comment on above: Performed By: #### 2 6449-9, 24286-3, HA1C, IMGB, 00975-6, CBC, THYR, 6771-0, 2132-03 #### [facility] ([id number]) [address], [address] [place] [address] #### 66549-0 #### [facility] ([id number]) [address] [place] [address] LEUKOCYTE ESTERASE JOURDAN Negative Normal NEG [facility] Comment on above: Performed By: #### 2 6449-9, 19770-4, HA1C, IMGB, 94890-1, CBC, THYR, 6771-0, 2132-03 #### [facility] ([id number]) [address] [facility], [address] [place] [address] #### 74337-9 #### [facility] ([id number]) [address] [place] [address] NITRITE JOURDAN Negative Normal NEG [facility] Comment on above: Performed By: #### 2 6449-9, 07001-9, HA1C, IMGB, 45081-3, CBC, THYR, 6771-0, 2132-03 #### [facility] ([id number]) [address] [place] [address], [address] [place] [address] #### 45552-7 #### [facility] ([id number]) [address] [place] [address] PH JOURDAN 6.0 Normal 5.0-8.5 [facility] Comment on above: Performed By: #### 2 6449-9, 42633-3, HA1C, IMGB, 70905-5, CBC, THYR, 6771-0, 2132-03 #### [facility] ([id number]) [address] [place] [address], [address] [place] [address] #### 68294-1 #### [facility] ([id number]) [address] [place] [address] PROTEIN JOURDAN Negative Normal NEG [facility] Comment on above: Performed By: #### 2 6449-9, 09549-2, HA1C, IMGB, 14068-7, CBC, THYR, 6771-0, 2132-9 #### [facility] ([id number]) [address], [address] [place] [address] #### 39829-1 #### [facility] ([id number]) [address] [place] [address] SPECIFIC GRAVITY JOURDAN 1.025 Normal 1.003-1.035 [facility] Comment on above: Performed By: #### 2 6449-9, 18349-0, HA1C, IMGB, 66309-0, CBC, THYR, 6771-0, 9 #### [facility] ([id number]) [address], [address] [place] [address] #### 76725-5 #### [facility] ([id number]) [address] [place] [address] UROBILINOGEN JOURDAN 0.2 eu/dL Normal <1.1 [facility] Comment on above: Performed By: #### 2 6449-9, 83935-7, HA1C, IMGB, 19494-9, CBC, THYR, 6771-0, 9 #### [facility] ([id number]) [address], [address] [place] [address] #### [id number] #### [facility] ([id number]) [address] [place] [address] US ABDOMEN LIMITEDon 024 US ABDOMEN LIMITED EXAMINATION: RIGHT UPPER QUADRANT ULTRASOUND 01/02/2024 3:13 pm COMPARISON: None. HISTORY: ORDERING SYSTEM PROVIDED HISTORY: [facility] abdominal pain TECHNOLOGIST PROVIDED HISTORY: [facility] Specify organ?->LIVER Specify organ?->PANCREAS FINDINGS: LIVER: The [...] Alfonso Ramos DO 01/02/24 Final result Normal [facility] US Abdomen limitedon 024 1. Cholecystectomy. 2. Prominent common bile duct measuring 9.7 mm. This likely reflects post cholecystectomy benign biliary ductal ectasia. [facility] EXAMINATION: RIGHT UPPER QUADRANT ULTRASOUND 01/02/2024 3:13 pm COMPARISON: None. HISTORY: ORDERING SYSTEM PROVIDED HISTORY: [facility] abdominal pain TECHNOLOGIST PROVIDED HISTORY: This procedure [...] No evidence of right upper quadrant ascites. [facility] Alfonso Ramos DO - 01/02/2024 [...] post cholecystectomy benign biliary ductal ectasia. [facility] Radiology Study observation (narrative) [facility] US Abdomen limitedOrdered By : Alfonso Ramos on 01-02-2024 [facility] Work Phone: Celiac Disease Panelon 12-27 Gliadin Deam Pep IgG <0.4 Normal <7.0 [facility] Comment on above: Result Comment: CELIAC INTERPRETATION <7.0 Negative 7.0-10.0 Equivocal >10.0 Positive units: U/mL Performed By: #### C PBILC, CDP, LIP #### [address] [place] [address] Nonprofit Financial Controller: Allison Zavaleta MD #### CELP #### [address] [phone] Nonprofit Financial Controller: Zac Servin MD Gliadin Deam Pep IgA 1.1 U/mL Normal <7.0 [facility] Comment on above: Result Comment: CELIAC INTERPRETATION <7.0 Negative 7.0-10.0 Equivocal >10.0 Positive units: U/mL Performed By: #### C PBILC, CDP, LIP #### [address] [place] [address] Nonprofit Financial Controller: Allison Zavaleta MD #### CELP #### [address] [address] Nonprofit Financial Controller: Zac Servin MD Tiss Transglutam IgA 0.4 U/mL Normal <7.0 [facility] Comment on above: Result Comment: CELIAC INTERPRETATION <7.0 Negative 7.0-10.0 Equivocal >10.0 Positive units: U/mL Performed By: #### C PBILC, CDP, LIP #### [address] [place], [place] [phone] Nonprofit Financial Controller: Allison Zavaleta MD #### CELP #### [address] [address] Nonprofit Financial Controller: Zac Servin MD Celiac Disease Panelon 12-26 IgA [Mass/Vol] 188 mg/dL Normal 70-400 [facility] Comment on above: Performed By: #### C PBILC, CDP, LIP #### [facility] [address] [place], [place] 9[address]83 Nonprofit Financial Controller: Allison Zavaleta MD #### CELP #### [address] [phone] Nonprofit Financial Controller: Zac Servin MD CBC with Diffon 12-26-2023 Abs. Basophil 0.03 k/uL Normal 0.00-0.20 [facility] Comment on above: Performed By: #### C PBILC, CDP, LIP #### [facility] [address] [place] [phone] Nonprofit Financial Controller: Allison Zavaleta MD #### CELP #### [address] [phone] Nonprofit Financial Controller: Zac Servin MD Abs.Imm.Granulocyte <0.03 Normal 0.00-0.30 [facility] Comment on above: Performed By: #### C PBILC, CDP, LIP #### [address] [place] [phone] Nonprofit Financial Controller: Allison Zavaleta MD #### CELP #### [address] [phone] Nonprofit Financial Controller: Zac Servin MD Abs.Neutrophil (Seg) 4.18 k/uL Normal 1.50-8.10 [facility] Comment on above: Performed By: #### C PBILC, CDP, LIP #### [facility] [address] [place], [place] 1065583 Nonprofit Financial Controller: Allison Zavaleta MD #### CELP #### [address] [phone] Nonprofit Financial Controller: Zac Servin MD Basophils/100 WBC (Bld) 0 % Normal 0-2 [facility] Comment on above: Performed By: #### C PBILC, CDP, LIP #### [facility] [address] [place] [phone] Nonprofit Financial Controller: Allison Zavaleta MD #### CELP #### [address] [phone] Nonprofit Financial Controller: Zac Servin MD Eosinophils (Bld) [#/Vol] 0.29 10*3/uL Normal 0.00-0.44 [facility] Comment on above: Performed By: #### C PBILC, CDP, LIP #### [facility] [address] [place] [phone] Nonprofit Financial Controller: Allison Zavaleta MD #### CELP #### [place] [phone] Nonprofit Financial Controller: Zac Servin MD Eosinophils/100 WBC (Bld) 4 % Normal 1-4 [facility] Comment on above: Performed By: #### C PBILC, CDP, LIP #### [facility] [address] [place] [phone] Nonprofit Financial Controller: Allison Zavaleta MD #### CELP #### [address] [phone] Nonprofit Financial Controller: Zac Servin MD Erythrocyte distribution width (RBC) [Ratio] 15.9 % High 11.8-14.4 [facility] Comment on above: Performed By: #### C PBILC, CDP, LIP #### [facility] [address] [place] [phone] Nonprofit Financial Controller: Allison Zavaleta MD #### CELP #### [address] [phone] Nonprofit Financial Controller: Zac Servin MD Hematocrit (Bld) [Volume fraction] 43.5 % Normal 36.3-47.1 [facility] Comment on above: Performed By: #### C PBILC, CDP, LIP #### [facility] [address] [place], [place] [phone] Nonprofit Financial Controller: Allison Zavaleta MD #### CELP #### [place] [address] [place], [place] [phone] Nonprofit Financial Controller: Zac Servin MD Hemoglobin (Bld) [Mass/Vol] 13.4 g/dL Normal 11.9-15.1 [facility] Comment on above: Performed By: #### C PBILC, CDP, LIP #### [facility] [address] [place], [place] [phone] Nonprofit Financial Controller: Allison Zavaleta MD #### CELP #### [address] [phone] Nonprofit Financial Controller: Zac Servin MD Immature granulocytes/100 WBC (Bld) 0 % Normal 0 [facility] Comment on above: Performed By: #### C PBILC, CDP, LIP #### [facility] [address] [place], [place] [phone] Nonprofit Financial Controller: Allison Zavaleta MD #### CELP #### [address] [phone] Nonprofit Financial Controller: Zac Servin MD Lymphocytes (Bld) [#/Vol] 1.87 10*3/uL Normal 1.10-3.70 [facility] Comment on above: Performed By: #### C PBILC, CDP, LIP #### [facility] [address] [place] [address] Nonprofit Financial Controller: Allison Zavaleta MD #### CELP #### [place] [address] [place], [place] [phone] Nonprofit Financial Controller: Zac Servin MD Lymphocytes/100 WBC (Bld) 27 % Normal 24-43 [facility] Comment on above: Performed By: #### C PBILC, CDP, LIP #### [facility] [address] [place], [place] 8262483 Nonprofit Financial Controller: Allison Zavaleta MD #### CELP #### [place] [address] [place], [place] [phone] Nonprofit Financial Controller: Zac Servin MD MCH (RBC) [Entitic mass] 25.8 pg Normal 25.2-33.5 [facility] Comment on above: Performed By: #### C PBILC, CDP, LIP #### [facility] [address] [place] [address] [place] [address] Nonprofit Financial Controller: Allison Zavaleta MD #### CELP #### [address] [phone] Nonprofit Financial Controller: Zac Servin MD MCHC (RBC) [Mass/Vol] 30.8 g/dL Normal 28.4-34.8 [facility] Comment on above: Performed By: #### C PBILC, CDP, LIP #### [address] [place] [phone] Nonprofit Financial Controller: Allison Zavaleta MD #### CELP #### [address] [phone] Nonprofit Financial Controller: Zac Servin MD MCV (RBC) [Entitic vol] 83.8 fL Normal 82.6-102.9 [facility] Comment on above: Performed By: #### C PBILC, CDP, LIP #### [facility] [address] [place] [address] Nonprofit Financial Controller: Allison Zavaleta MD #### CELP #### [place] [address] [place], [place] [phone] Nonprofit Financial Controller: Zac Servin MD Monocytes (Bld) [#/Vol] 0.51 10*3/uL Normal 0.10-1.20 [facility] Comment on above: Performed By: #### C PBILC, CDP, LIP #### [facility] [address] [place], [place] [phone] Nonprofit Financial Controller: Allison Zavaleta MD #### CELP #### [address] [phone] Nonprofit Financial Controller: Zac Servin MD Monocytes/100 WBC (Bld) 7 % Normal 3-12 [facility] Comment on above: Performed By: #### C PBILC, CDP, LIP #### [facility] [address] [place], [place] 8553583 Nonprofit Financial Controller: Allison Zavaleta MD #### CELP #### [address] [phone] Nonprofit Financial Controller: Zac Servin MD Neutrophil (Seg) 62 % Normal 36-65 [facility] Comment on above: Performed By: #### C PBILC, CDP, LIP #### [facility] [address] [place], [place] 8885583 Nonprofit Financial Controller: Allison Zavaleta MD #### CELP #### [address] [phone] Nonprofit Financial Controller: Zac Servin MD NRBC Automated 0.0 per 100 WBC Normal 0.0 [facility] Comment on above: Performed By: #### C PBILC, CDP, LIP #### [facility] [address] [place], [place] [phone] Nonprofit Financial Controller: Allison Zavaleta MD #### CELP #### [address] [phone] Nonprofit Financial Controller: Zac Servin MD Platelet mean volume (Bld) [Entitic vol] 9.8 fL Normal 8.1-13.5 [facility] Comment on above: Performed By: #### C PBILC, CDP, LIP #### [facility] [address] [place], [place] [phone] Nonprofit Financial Controller: Allison Zavaleta MD #### CELP #### [facility] [address] [place] [address] Nonprofit Financial Controller: Zac Servin MD Platelets (Bld) [#/Vol] 341 10*3/uL Normal 138-453 [facility] Comment on above: Performed By: #### C PBILC, CDP, LIP #### [facility] [address] [place], [place] [phone] Nonprofit Financial Controller: Allison Zavaleta MD #### CELP #### [address] [phone] Nonprofit Financial Controller: Zac Servin MD RBC (Bld) [#/Vol] 5.19 10*6/uL High 3.95-5.11 [facility] Comment on above: Performed By: #### C PBILC, CDP, LIP #### [facility] [address] [place], [place] 1674883 Nonprofit Financial Controller: Allison Zavaleta MD #### CELP #### [address] [address] Nonprofit Financial Controller: Zac Servin MD WBC (Bld) [#/Vol] 6.9 10*3/uL Normal 3.5-11.3 [facility] Comment on above: Performed By: #### C PBILC, CDP, LIP #### [facility] [address] [place], [place] 4605083 Nonprofit Financial Controller: Allison Zavaleta MD #### CELP #### [place] [address] [place] [address] Nonprofit Financial Controller: Zac Servin MD Comp Metab w/Bili Pron 12-25 Albumin [Mass/Vol] 4.3 g/dL Normal 3.5-5.2 [facility] Comment on above: Performed By: #### C PBILC, CDP, LIP #### [facility] [address] [place], [place] 1075283 Nonprofit Financial Controller: Allison Zavaleta MD #### CELP #### [address] [phone] Nonprofit Financial Controller: Zac Servin MD Albumin/Glob Ratio 1.4 Normal 1.0-2.5 [facility] Comment on above: Performed By: #### C PBILC, CDP, LIP #### [facility] [address] [place], [place] [phone] Nonprofit Financial Controller: Allison Zavaleta MD #### CELP #### [address] [phone] Nonprofit Financial Controller: Zac Servin MD Alkaline Phos 91 U/L Normal 35-104 [facility] Comment on above: Performed By: #### C PBILC, CDP, LIP #### [facility] [address] [place], [place] 2922583 Nonprofit Financial Controller: Allison Zavaleta MD #### CELP #### [address] [phone] Nonprofit Financial Controller: Zac Servin MD ALT [Catalytic activity/Vol] 22 U/L Normal 5-33 [facility] Comment on above: Performed By: #### C PBILC, CDP, LIP #### [facility] [address] [place], [place] 1379083 Nonprofit Financial Controller: Allison Zavaleta MD #### CELP #### [address] [address] Nonprofit Financial Controller: Zac Servin MD Anion gap [Moles/Vol] 10 mmol/L Normal 9-17 [facility] Comment on above: Performed By: #### C PBILC, CDP, LIP #### [facility] [address] [place], [place] 2136383 Nonprofit Financial Controller: Allison Zavaleta MD #### CELP #### [address] [address] Nonprofit Financial Controller: Zac Servin MD AST [Catalytic activity/Vol] 16 U/L Normal <32 [facility] Comment on above: Performed By: #### C PBILC, CDP, LIP #### [facility] [address] [place], [place] 8557883 Nonprofit Financial Controller: Allison Zavaleta MD #### CELP #### [address] [address] Nonprofit Financial Controller: Zac Servin MD Bilirubin [Mass/Vol] 0.3 mg/dL Normal 0.3-1.2 [facility] Comment on above: Performed By: #### C PBILC, CDP, LIP #### [facility] [address] [place] [address] [place], [place] [phone] Nonprofit Financial Controller: Allison Zavaleta MD #### CELP #### [address] [address] Nonprofit Financial Controller: Zac Servin MD Bilirubin, Indirect Can not be calculated Normal 0.0-1 .0 [facility] Comment on above: Performed By: #### C PBILC, CDP, LIP #### [facility] [address] [place] [address] [place] [address] Nonprofit Financial Controller: Allison Zavaleta MD #### CELP #### [address] [phone] Nonprofit Financial Controller: Zac Servin MD Bilirubin.indirect [Mass/Vol] mg/dL Normal <0.3 [facility] Comment on above: Performed By: #### C PBILC, CDP, LIP #### [facility] [address] [place] [address] [place]. [place], [place] [phone] Nonprofit Financial Controller: Allison Zavaleta MD #### CELP #### [place] [address] [place], [place] [phone] Nonprofit Financial Controller: Zac Servin MD Calcium [Mass/Vol] 8.9 mg/dL Normal 8.6-10.4 [facility] Comment on above: Performed By: #### C PBILC, CDP, LIP #### [facility] [address] [place] [address] [place]. [place], [place] 8188183 Nonprofit Financial Controller: Allison Zavaleta MD #### CELP #### [address] [phone] Nonprofit Financial Controller: Zac Servin MD Chloride [Moles/Vol] 101 mmol/L Normal 98-107 [facility] Comment on above: Performed By: #### C PBILC, CDP, LIP #### [facility] [address] [place] [address] [place]. [place], [place] 3310683 Nonprofit Financial Controller: Allison Zavaleta MD #### CELP #### [address] [phone] Nonprofit Financial Controller: Zac Servin MD CO2 [Moles/Vol] 27 mmol/L Normal 20-31 [facility] Comment on above: Performed By: #### C PBILC, CDP, LIP #### [facility] [address] [place] [address] [place], [place] [phone] Nonprofit Financial Controller: Allison Zavaleta MD #### CELP #### [address] [phone] Nonprofit Financial Controller: Zac Servin MD Creatinine [Mass/Vol] 0.7 mg/dL Normal 0.5-0.9 [facility] Comment on above: Performed By: #### C PBILC, CDP, LIP #### [facility] [address] [place] [address] [place] [address] Nonprofit Financial Controller: Allison Zavaleta MD #### CELP #### [address] [address] Nonprofit Financial Controller: Zac Servin MD GFR/1.73 sq M.predicted among non-blacks MDRD (S/P/Bld) [Vol rate/Area] mL/min/{1.73_m2} Normal >60 [facility] Comment on above: Result Comment: These [...] renal tubular secretion. Performed By: #### C PBRAIZA CDP, LIP #### [address] [place] [address] Nonprofit Financial Controller: Allison Zavaleta MD #### CELP #### [address] [phone] Nonprofit Financial Controller: Zac Servin MD Glucose [Mass/Vol] 135 mg/dL High 70-99 [facility] Comment on above: Performed By: #### C PBILGino, CDP, LIP #### [address] [place] [address] Nonprofit Financial Controller: Allison Zavaleta MD #### CELP #### [address] [phone] Nonprofit Financial Controller: Zac Servin MD Potassium [Moles/Vol] 4.1 mmol/L Normal 3.7-5.3 [facility] Comment on above: Performed By: #### C PBILC, CDP, LIP #### [address] [place] [address] Nonprofit Financial Controller: Allison Zavaleta MD #### CELP #### [place] [address] [place], [place] 3636708 Nonprofit Financial Controller: Zac Servin MD Protein [Mass/Vol] 7.4 g/dL Normal 6.4-8.3 [facility] Comment on above: Performed By: #### C PBILC, CDP, LIP #### [facility] [address] [place], [place] 6951583 Nonprofit Financial Controller: Allsion Zavaleta MD #### CELP #### [address] [phone] Nonprofit Financial Controller: Zac Servin MD Sodium [Moles/Vol] 138 mmol/L Normal 135-144 [facility] Comment on above: Performed By: #### C PBILC, CDP, LIP #### [facility] [address] [place] [phone] Nonprofit Financial Controller: Allison Zavaleta MD #### CELP #### [address] [phone] Nonprofit Financial Controller: Zac Servin MD Urea nitrogen [Mass/Vol] 12 mg/dL Normal 6-20 [facility] Comment on above: Performed By: #### C PBILC, CDP, LIP #### [facility] [address] [place], [place] 4826583 Nonprofit Financial Controller: Allison Zavaleta MD #### CELP #### [address] [address] Nonprofit Financial Controller: Zac Servin MD Lipaseon 12-26-2023 Lipase [Catalytic activity/Vol] 36 U/L Normal 13-60 [facility] Comment on above: Performed By: #### C PBILC, CDP, LIP #### [facility] [address] [place], [place] 4545283 Nonprofit Financial Controller: Allison Zavaleta MD #### CELP #### [facility] [address] [place] [address] Nonprofit Financial Controller: Zac Servin MD COMPLETE BLOOD COUNTon 12-12 Erythrocyte distribution width (RBC) [Ratio] 18.2 % High 11.5-15.0 [facility] Comment on above: Performed By: #### 2 6449-9, 69333-4, HA1C, IMGB, 62998-3, CBC, THYR, 6771-0, 2132-03 #### [facility] ([id number]) [address] [place] [address], [address] [address] #### 38777-3 #### [facility] ([id number]) [address] [place] [address] Hematocrit (Bld) [Volume fraction] 42.1 % Normal 35-47 [facility] Comment on above: Performed By: #### 2 6449-9, 74301-5, HA1C, IMGB, 37101-4, CBC, THYR, 6771-0, 2132-03 #### [facility] ([id number]) [address] [place] [address] #### 39877-5 #### [facility] ([id number]) [address] [place] [address] Hemoglobin (Bld) [Mass/Vol] 13.6 g/dL Normal 11.7-15.5 [facility] Comment on above: Performed By: #### 2 6449-9, 19678-8, HA1C, IMGB, 11190-1, CBC, THYR, 6771-0, 2132-03 #### [facility] ([id number]) [address] [place] [address], [address] [address] #### 36023-9 #### [facility] ([id number]) [address] [place] [address] MCH (RBC) [Entitic mass] 26.3 pg Low 27-34 [facility] Comment on above: Performed By: #### 2 6449-9, 12533-7, HA1C, IMGB, 48329-9, CBC, THYR, 6771-0, 2132-03 #### [facility] ([id number]) [address], [address] [place] [address] #### 67181-0 #### [facility] ([id number]) [address] [place] [address] MCHC (RBC) [Mass/Vol] 32.4 g/dL Normal 32-36 [facility] Comment on above: Performed By: #### 2 6449-9, 39473-9, HA1C, IMGB, 42435-9, CBC, THYR, 6771-0, 2132-03 #### [facility] ([id number]) [address], [address] [place] [address] #### 34786-9 #### [facility] ([id number]) [address] [place] [address] MCV (RBC) [Entitic vol] 81 fL Normal 80-100 [facility] Comment on above: Performed By: #### 2 6449-9, 06519-6, HA1C, IMGB, 44639-1, CBC, THYR, 6771-0, 2132-03 #### [facility] ([id number]) [address], [address] [place] [address] #### 86135-8 #### [facility] ([id number]) [address] [place] [address] Platelet mean volume (Bld) [Entitic vol] 8.2 fL Normal 7-12 [facility] Comment on above: Performed By: #### 2 6449-9, 83125-5, HA1C, IMGB, 22236-7, CBC, THYR, 6771-0, 2132-03 #### [facility] ([id number]) [address], [address] [place] [address] #### 59376-0 #### [facility] ([id number]) [address] [place] [address] Platelets (Bld) [#/Vol] 338 10*3/uL Normal 150-450 [facility] Comment on above: Performed By: #### 2 6449-9, 08287-0, HA1C, IMGB, 36025-8, CBC, THYR, 6771-0, 2132-03 #### [facility] ([id number]) [address] [place] [address] #### 68136-1 #### [facility] ([id number]) [address] [place] [address] RBC COUNT 5.19 X10E12/L Normal 3.80-5.20 [facility] Comment on above: Performed By: #### 2 6449-9, 38212-1, HA1C, IMGB, 91187-8, CBC, THYR, 6771-0, 2132-03 #### [facility] ([id number]) [address], [address] [place] [address] #### 40351-8 #### [facility] ([id number]) [address] [place] [address] WBC (Bld) [#/Vol] 7.7 10*3/uL Normal 4.0-11.[address] [facility] Comment on above: Performed By: #### 2 6449-9, 93351-4, HA1C, IMGB, 39737-3, CBC, THYR, 6771-0, 2132-03 #### [facility] ([id number]) [address], [address] [place] [address] #### 87389-5 #### [facility] ([id number]) [address] [place] [address] COMPREHENSIVE METABOLIC PANE Toribio 12-13-2023 Albumin [Mass/Vol] 4.4 g/dL Normal 3.2-5.[address] [facility] Comment on above: Performed By: #### 2 6449-9, 47317-2, HA1C, IMGB, 58837-4, CBC, THYR, 6771-0, 2132-03 #### [facility] ([id number]) [address] [place] [address] #### 92446-1 #### [facility] ([id number]) [address] [place] [address] ALP [Catalytic activity/Vol] 81 U/L Normal 39-130 [facility] Comment on above: Performed By: #### 2 6449-9, 56837-4, HA1C, IMGB, 37501-9, CBC, THYR, 6771-0, 2132-03 #### [facility] ([id number]) [address] [facility], [address] [place] [address] #### 95455-9 #### [facility] ([id number]) [address] [place] [address] ALT [Catalytic activity/Vol] 27 U/L Normal 0-31 [facility] Comment on above: Performed By: #### 2 6449-9, 27997-8, HA1C, IMGB, 93150-2, CBC, THYR, 6771-0, 2132-03 #### [facility] ([id number]) [address] [place] [address] #### 79320-8 #### [facility] ([id number]) [address] [place] [address] Anion gap [Moles/Vol] 9 mmol/L Normal 5-15 [facility] Comment on above: Performed By: #### 2 6449-9, 89986-3, HA1C, IMGB, 41898-7, CBC, THYR, 6771-0, 2132-03 #### [facility] ([id number]) [address], [address] [place] [address] #### 98573-9 #### [facility] ([id number]) [address] [place] [address] AST [Catalytic activity/Vol] 20 U/L Normal 0-41 [facility] Comment on above: Performed By: #### 2 6449-9, 62559-1, HA1C, IMGB, 16473-8, CBC, THYR, 6771-0, 2132-03 #### [facility] ([id number]) [address] [facility], [address] [place] [address] #### 97518-7 #### [facility] ([id number]) [address] [place] [address]1596 Bilirubin [Mass/Vol] 0.4 mg/dL Normal 0.3-1.2 [facility] Comment on above: Performed By: #### 2 6449-9, 30323-5, HA1C, IMGB, 96967-7, CBC, THYR, 6771-0, 2132-03 #### [facility] ([id number]) [address], [address] [place] [address] #### 36606-6 #### [facility] ([id number]) [address] [place] [address]708 Calcium [Mass/Vol] 9.2 mg/dL Normal 8.5-10.[address] [facility] Comment on above: Performed By: #### 2 6449-9, 30461-0, HA1C, IMGB, 52276-7, CBC, THYR, 6771-0, 2132-03 #### [facility] ([id number]) [address] [facility], [address] [place] [address] #### 79350-5 #### [facility] ([id number]) [address] [place] [address]278 Chloride [Moles/Vol] 103 mmol/L Normal 98-109 [facility] Comment on above: Performed By: #### 2 6449-9, 73733-4, HA1C, IMGB, 20187-5, CBC, THYR, 6771-0, 2132-03 #### [facility] ([id number]) [address] [facility], [address] [place] [address] #### 38535-1 #### [facility] ([id number]) [address] [place] [address] 22757 CO2 [Moles/Vol] 26 mmol/L Normal 22-32 [facility] Comment on above: Performed By: #### 2 6449-9, 82333-0, HA1C, IMGB, 12120-9, CBC, THYR, 6771-0, 2132-03 #### [facility] ([id number]) [address] [place] [address], [address] [place] [address] #### 92540-5 #### [facility] ([id number]) [address] [place] [address] 25319 Creatinine [Mass/Vol] 0.69 mg/dL Normal 0.40-1.00 [facility] Comment on above: Result Comment: METH OD TRACEABLE TO IDMS STANDARD Performed By: #### 2 6449-9, 42146-5, HA1C, IMGB, 09312-5, CBC, THYR, 6771-0, 2132-03 #### [facility] ([id number]) [address] [facility], [address] [place] [address] #### 54308-7 #### [facility] ([id number]) [address] [place] [address]27 eGFR (CKD-EPI) NON-RACE DEPENDENT >90 Normal >59 [facility] Comment on above: Result Comment: Reported eGFR is based on the CKD-EPI 2020 equation that does not use a race coefficient. Performed By: #### 2 6449-9, 65557-6, HA1C, IMGB, 99691-8, CBC, THYR, 6771-0, 2132-03 #### [facility] ([id number]) [address], [address] [place] [address] #### 16464-1 #### [facility] ([id number]) [address] [place] [address] 51193 Glucose [Mass/Vol] 128 mg/dL High 65-[address] [facility] Comment on above: Performed By: #### 2 6449-9, 45890-6, HA1C, IMGB, 40674-2, CBC, THYR, 6771-0, 2132-03 #### [facility] ([id number]) [address] [facility], [address] [place] [address] #### 59363-7 #### [facility] ([id number]) [address] [place] [address] 70208 Potassium [Moles/Vol] 4.2 mmol/L Normal 3.5-5.0 [facility] Comment on above: Performed By: #### 2 6449-9, 66561-9, HA1C, IMGB, 57940-1, CBC, THYR, 6771-0, 2132-03 #### [facility] ([id number]) [address], [address] [place] [address] #### 23592-1 #### [facility] ([id number]) [address] [place] [address] 35480 Protein [Mass/Vol] 7.4 g/dL Normal 6.0-8.[address] [facility] Comment on above: Performed By: #### 2 6449-9, 11936-3, HA1C, IMGB, 82080-2, CBC, THYR, 6771-0, 2132-03 #### [facility] ([id number]) [address], [address] [place] [address] #### 82083-9 #### [facility] ([id number]) [address] [place] [address] 24073 Sodium [Moles/Vol] 138 mmol/L Normal 134-[address] [facility] Comment on above: Performed By: #### 2 6449-9, 31927-9, HA1C, IMGB, 26905-8, CBC, THYR, 6771-0, 2132-03 #### [facility] ([id number]) [address] [facility], [address] [place] [address] #### 56621-1 #### [facility] ([id number]) [address] [place] [address] 81554 Urea nitrogen [Mass/Vol] 10 mg/dL Normal 5-23 [facility] Comment on above: Performed By: #### 2 6449-9, 58942-5, HA1C, IMGB, 88846-5, CBC, THYR, 6771-0, 2132-03 #### [facility] ([id number]) [address], [address] [place] [address] #### 26892-2 #### [facility] ([id number]) [address] [place] [address] 42682 Lipid 1996 panelon 4 Cholesterol [Mass/Vol] 137 mg/dL Low 150-200 [facility] Comment on above: Performed By: #### 2 6449-9, 27336-1, HA1C, IMGB, 11789-1, CBC, THYR, 6771-0, 2132-03 #### [facility] ([id number]) [address] [facility], [address] [place] [address] #### 09039-9 #### [facility] ([id number]) [address] [place] [address] 49035 Cholesterol in HDL [Mass/Vol] 48 mg/dL Normal >39 [facility] Comment on above: Result Comment: HDL <40 mg/dL - High Risk HDL > or = 40mg/dL- Desirable HDL >60 mg/dL - Negative Risk Performed By: #### 2 6449-9, 76247-1, HA1C, IMGB, 97905-4, CBC, THYR, 6771-0, 2132-03 #### [facility] ([id number]) [address] [place] [address], [address] [place] [address] #### 95036-8 #### [facility] ([id number]) [address] [place] [address] 49363 Cholesterol in LDL [Mass/Vol] 62 mg/dL Normal <130 [facility] Comment on above: Result Comment: LDL <100 mg/dL - Desirable LDL >160 mg/dL - High Risk Performed By: #### 2 6449-9, 63069-1, HA1C, IMGB, 47012-8, CBC, THYR, 6771-0, 2132-03 #### [facility] ([id number]) [address] [place] [address], [address] [place] [address] #### 61307-5 #### [facility] ([id number]) [address] [place] [address] 23295 Cholesterol in VLDL [Mass/Vol] 27 mg/dL Normal 0-30 [facility] Comment on above: Performed By: #### 2 6449-9, 03281-9, HA1C, IMGB, 22476-1, CBC, THYR, 6771-0, 2132-03 #### [facility] ([id number]) [address] [facility], [address] [place] [address] #### 79716-7 #### [facility] ([id number]) [address] [place] [address] 86702 CHOLESTEROL:HDL 2.9 Normal 1.0-5.0 [facility] Comment on above: Performed By: #### 2 6449-9, 25719-5, HA1C, IMGB, 51894-5, CBC, THYR, 6771-0, 2132-03 #### [facility] ([id number]) [address] [facility], [address] [place] [address] #### 18759-3 #### [facility] ([id number]) [address] [place] [address] 20272 Triglyceride [Mass/Vol] 136 mg/dL Normal 27-150 [facility] Comment on above: Performed By: #### 2 6449-9, 02974-7, HA1C, IMGB, 97368-4, CBC, THYR, 6771-0, 2132-03 #### [facility] ([id number]) [address] [facility], [address] [place] [address] #### 02194-2 #### [facility] ([id number]) [address] [place] [address] 36221 THYROID PROFILEon 12-13-2023 Free T4 [Mass/Vol] 1.01 ng/dL Normal 0.61-1.[address] [facility] Comment on above: Performed By: #### 2 6449-9, 16423-0, HA1C, IMGB, 19003-0, CBC, THYR, 6771-0, 2132-03 #### [facility] ([id number]) [address] [facility], [address] [place] [address] #### 44776-4 #### [facility] ([id number]) [address] [place] [address] 56524 TSH 1.81 uIU/mL Normal 0.49-4.67 [facility] Comment on above: Performed By: #### 2 6449-9, 48158-3, HA1C, IMGB, 66908-3, CBC, THYR, 6771-0, 2132-03 #### [facility] ([id number]) [address] [place] [address], [address] [place] [address] #### 26629-0 #### [facility] ([id number]) [address] [place] [address] 02361 XR CHEST 2 VWSon 12-13-2023 XR CHEST [...] Rogers MD on 12/13/2023 2:14 PM Normal [facility] H PYLORI SCREENon 11-20-2023 H. pylori Org specific cx Ql (Ashwini fld) Negative Normal NEG [facility] Comment on above: Performed By: #### 2 6449-9, 72303-7, HA1C, IMGB, 83449-0, CBC, THYR, 6771-0, 2132-03 #### [facility] ([id number]) [address] [facility], [address] [place] [address] #### 35576-2 #### [facility] ([id number]) [address] [facility], [place] [address] Surgical Pathologyon 024 Surgical Pathology Normal [facility] Comment on above: Result Comment: [facility] [address] [place], [place] [address] Surgical Pathology Consultation Patient Name:RAYA GONZALES:1980 (Age: 43)Gender:FTaken:11/20/2023eported:11/22/2023hysician(s):Marlon Tillman D.O. ([phone])Copy To: Rec. #:[id number]: #[id number] Final Pathologic Diagnosis 1. Duodenal biopsies: Normal [...] and hyperplastic polyps. Report Electronically Signed [facility]/11/22/2023Froylan Sahu M.D. Interpretation performed at [facility], [address] [place] [address], License number: [id number]. Clinical History GERD/rectal bleed. 4. Snared a polyp. 5. Snared a polyp. 6. Snared polyps x3. Gross Description 1. Received in formalin labeled VINNY duodenum BX are two light orbles soft tissue bits, 0.2 cm each. The specimen is filtered and entirely submitted in a single cassette. (1, ns, [id number],m8) DM. 2. Received in formalin labeled [place], antrum BX are two light robles soft tissue bits, 0.3 and 0.4 cm. The specimen is filtered and entirely submitted in a single cassette. (1, ns, [id number],m8) DM. 3. Received in formalin labeled [place], distal esophagus BX are four light robles soft tissue bits, 0.1-0.2 cm. The specimen is filtered and entirely submitted in a single cassette. (1, ns, [id number],m8) DM. 4. Received in formalin labeled [place], hepatic flexure polyp are four light robles feathery soft tissue bits, 0.1-0.5 cm. The specimen is filtered and entirely submitted in a single cassette. (1, ns, [id number],m8) DM. 5. Received in formalin labeled [place], descending colon polyp are two light robles soft tissue bits, 0.1 and 0.6 cm. The specimen is filtered and entirely submitted in a single cassette. (1, ns, [id number],m8) DM. 6. Received in formalin labeled [place], sigmoid colon polyp are five light robles soft tissue bits, 0.2-0.4 cm. The specimen is filtered and entirely submitted in a single cassette. (1, ns, [id number],m8) DM. dm/11/21/2023NS Specimen(s) Received 1: Duodenum biopsy 2: Antrum biopsy 3: Distal esophageal biopsy 4: Hepatic flexure polyp 5: Descending colon polyp 6: Sigmoid colon polyp Fee Codes(s): 1; 21254 2; 48048 3; 14964, 3126F 4; 94832 5; 98112 6; 03001 [facility]AY[facility]ON[facility]ES ([id number]) 1980 F Date Time Provider Department 02/01/22 [...] Encounter Status:Closed by [facility] on 02/10/22 [facility] ERRONEOUSENCon 02-01-2022 ERRONEOUSENC [id number] Tia Gonzales sa 1980 F * Clinical document posted in Error * Encounter Type Conversion History User Instant Changed From Changed To MARY WALDEN Feb 10, 2022 3* Telephone Erroneous* [facility] Vital Signs Date Time Vital Sign Value Performing Clinician Facility 10-08-2024 14:16-0400 Body height 162.6 cm Elvi Chapman MD Work Phone: [facility] 10-08-2024 14:16-0400 Body mass index (BMI) [Ratio] 45.76 kg/m2 Elvi Chapman MD Work Phone: [facility] 10-08-2024 14:16-0400 Body weight 120.93 kg Elvi Chapman MD Work Phone: [facility] 10-08-2024 14:16-0400 Diastolic blood pressure 84 mm[Hg] Elvi Chapman MD Work Phone: [facility] 10-08-2024 14:16-0400 Systolic blood pressure 132 mm[Hg] Elvi Chapman MD Work Phone: [facility] 09-03-2024 13:36-0500 Body height 162.6 cm Pmh 1 [facility] 09-03-2024 13:36-0500 Body mass index (BMI) [Ratio] 45.32 kg/m2 Pmh 1 [facility] 09-03-2024 13:36-0500 Body weight 119.75 kg Pmh 1 [facility] 07-30-2024 13:03-0500 Body height 162.6 cm Elvi Chapman MD Work Phone: [facility] 07-30-2024 13:03-0500 Body mass index (BMI) [Ratio] 46.59 kg/m2 Elvi Chapman MD Work Phone: [facility] 07-30-2024 13:03-0500 Body weight 123.11 kg Elvi Chapman MD Work Phone: [facility] 07-30-2024 13:03-0500 Diastolic blood pressure 102 mm[Hg] Elvi Chapman MD Work Phone: [facility] 07-30-2024 13:03-0500 Systolic blood pressure 158 mm[Hg] Elvi Chapman MD Work Phone: [facility] 11-17-2023 13:49-0400 Body height 162.6 cm Yojana Phan MD PhD Work Phone: [facility] 11-17-2023 13:49-0400 Body mass index (BMI) [Ratio] 47.89 kg/m2 Yojana Phan MD PhD Work Phone: [facility] 11-17-2023 13:49-0400 Body weight 126.55 kg Yojana Phan MD PhD Work Phone: [facility] 11-17-2023 13:49-0400 Diastolic blood pressure 88 mm[Hg] Yojana Phan MD PhD Work Phone: [facility] 11-17-2023 13:49-0400 Heart rate 90 /min Yojana Phan MD PhD Work Phone: [facility] 11-17-2023 13:49-0400 Respiratory rate 20 /min Yojana Phan MD PhD Work Phone: [facility] 11-17-2023 13:49-0400 Systolic blood pressure 138 mm[Hg] Yojana Phan MD PhD Work Phone: [facility] Encounters Encounter Date Encounter Type Care Provider Facility Start: 10-18-2024 End: [facility]18[facility] Start: 10-08-2024 End: 10-08-2024 Office outpatient visit 15 minutes [facility] Chapman MD [facility] Comment on above: DUB (dysfunctional u terine bleeding) (Primary Dx) Start: 10-08-2024 End: 10-08-2024 ambulatory [facility] Start: 09-09-2024 End: 09-09-2024 Evaluation and management of inpatient [facility] Start: 09-09-2024 End: 09-09-2024 Evaluation and management of inpatient [facility] Start: 09-03-2024 End: 09-03-2024 Patient encounter procedure [facility] Pre-Admission Testing 1 [facility] - Pre Admit Comment on above: Preop examination (P rimary Dx); Obesity, morbid, BMI 40.0-49.9 (CMS-HCC); Asthma, unspecified asthma severity, unspecified whether complicated, unspecified whether persistent Start: 09-03-2024 End: 09-03-2024 Preprocedural examination done Pm 1 [facility] Start: 09-03-2024 End: 09-03-2024 ambulatory ALLISON Peterson [facility] Start: 09-03-2024 Encounter for other preprocedural examination [facility] Start: 08-05-2024 End: 08-05-2024 Telephone encounter Elvi Chapman MD Work Phone: [facility] Start: 07-30-2024 End: 07-30-2024 Office outpatient visit 15 minutes Elvi Chapman MD Work Phone: [facility] Comment on above: DUB (dysfunctional u terine bleeding) (Primary Dx) Start: 07-30-2024 End: 08-01-2024 ambulatory [facility] Start: 07-15-2024 End: 07-15-2024 ambulatory [facility] Start: 07-15-2024 End: 07-15-2024 ambulatory [facility] Start: 07-09-2024 End: 07-09-2024 ambulatory [facility] Start: 06-24-2024 End: 06-24-2024 ambulatory [facility] Start: 06-21-2024 End: 06-21-2024 Emergency department patient visit [facility] Start: 06-19-2024 End: 06-19-2024 ambulatory [facility] Start: 06-19-2024 Encounter for gynecological examination (general) (routine) without abnormal findings [facility] Start: 06-19-2024 End: 06-19-2024 ambulatory [facility] Start: 06-19-2024 Encounter for gynecological examination (general) (routine) without abnormal findings [facility] Start: 06-17-2024 End: 06-17-2024 ambulatory [facility] Start: 06-12-2024 End: 06-12-2024 ambulatory GISELA Kristen CORDOVA [facility] Start: 06-12-2024 End: 06-12-2024 ambulatory [facility] Start: 05-31-2024 End: 05-31-2024 ambulatory [facility] Start: 03-05-2024 End: 03-05-2024 ambulatory [facility] Start: 02-27-2024 End: 02-27-2024 [facility] Start: 01-30-2024 End: 01-31-2024 Emergency department patient visit ANGIE E [facility] Start: 01-30-2024 End: 01-30-2024 Emergency department patient visit [facility] Start: 01-30-2024 End: 01-31-2024 Emergency department patient visit ANGIE Ordonez [facility] Start: 01-26-2024 End: 01-26-2024 ambulatory ANDRES Peterson MARYROBBIE [facility] Start: 01-23-2024 End: 01-23-2024 ambulatory ADELINE FLORENTINO [facility] Start: 01-03-2024 End: 01-04-2024 Emergency department patient visit CHARLIE Buddy [facility] Start: 01-02-2024 End: 01-04-2024 ambulatory ADELINE FLORENTINO [facility] Start: 01-02-2024 End: 01-04-2024 Subsequent hospital visit by physician Mth Ultrasound Room [facility] Comment on above: RUQ abdominal pain Start: 12-26-2023 End: 12-26-2023 ambulatory ADELINE FLORENTINO [facility] [place] [facility] Start: 12-14-2023 End: 12-14-2023 ambulatory OFELIA TERRAZAS [facility] Start: 12-13-2023 End: 12-13-2023 ambulatory [facility] Start: 11-21-2023 End: 11-21-2023 Evaluation and management of inpatient LILY SNELL [facility] Start: 11-20-2023 End: 11-21-2023 Evaluation and management of inpatient MARLON TILLMAN [facility] Start: 11-17-2023 End: 11-18-2023 ambulatory YOJANA PHAN [facility] Start: 11-17-2023 End: 11-17-2023 Office outpatient new 60 minutes Yojana Phan MD PhD Work Phone: [facility] Comment on above: Polyneuropathy (Prim brianna Dx); Vertigo; Balance problem; Cataract of right eye, unspecified cataract type; Multiple sclerosis (Multi) Start: 11-14-2023 End: 11-14-2023 ambulatory SEVEN CINTHYA [facility] Start: 11-01-2023 End: 11-01-2023 ambulatory THAIS Villatoro MARLYE [facility] Procedures Date Procedure Procedure Detail Performing Clinician Start: 06-19-2024 Adult depression scr eening assessment Elvi Chapman MD Work Phone: Start: 06-19-2024 Microscopic observat ion [Identifier] in Cervix by Cyto stain Elvi Chapman MD Work Phone: Start: 05-31-2024 Follow-up visit Follow-up NAVI ZAPIEN Start: 03-05-2024 Mammography Elvi Nguyen ch, MD Work Phone: Start: 01-02-2024 Us abdominal real ti me w/image limited Adeline Florentino [employer] Work Phone: Start: 11-20-2023 Colonoscopy Elvi Nguyen ch, MD Work Phone: Plan of Treatment Date Care Activity Detail Author Start: 2041 RSV patient s and/or patients aged 60+ years (1 - 1-dose 60+ series) RSV patients and/or patients aged 60+ years (1 - 1-dose 60+ series) [facility] Start: 2031 Zoster Vaccines (1 of 2) Zoster Vacc esvin (1 of 2) [facility] Start: 11-19-2028 Screening for malign ant neoplasm of colon Colonoscopy [facility] Start: 06-19-2027 Screening for malign ant neoplasm of cervix Pap Smear [facility] Start: 09-09-2025 Adult BMI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
[2024-12-13] MEDS: ACETAMINOPHEN 500 MG TABLET 1000 MG PO (18:33)
[2024-12-13] MEDS: SUMATRIPTAN SUCCINATE 50 MG TABLET PO (18:33)
[2024-12-13] MEDS: PANTOPRAZOLE SODIUM 40 MG TABLET.DR PO (21:12)
[2024-12-13] MEDS: CARVEDILOL 3.125 MG TABLET PO (21:12)
[2024-12-13] MEDS: MORPHINE SULFATE 2 MG/ML SYRINGE IV (21:12)
[2024-12-13] MEDS: LACTATED RINGER'S SOLUTION 1,000 ML 125 ML IV (21:19)
[2024-12-14] VITALS (9 sets, daily range): BP systolic 152–169; BP diastolic 82–100; PULSE 61–90; TEMP 36.6–36.8; O2SAT 94–97
[2024-12-14] MEDS: LORAZEPAM 2 MG/ML VIAL 1 MG IV ×3 (00:25→09:44)
[2024-12-14] MEDS: MORPHINE SULFATE 2 MG/ML SYRINGE IV ×2 (02:37→06:47)
[2024-12-14] MEDS: ACETAMINOPHEN 500 MG TABLET 1000 MG PO ×2 (04:45→12:03)
[2024-12-14] MEDS: LACTATED RINGER'S SOLUTION 1,000 ML 125 ML IV (04:45)
[2024-12-14 06:15] LABS: Hematocrit 36.2 % (36.0-48.0); Immature Granulocytes Abs Auto 0.02 10^3/uL (0.00-0.03); Immature Granulocytes Pct Auto 0.3 % (0.0-0.5); Lymphocytes Percent Auto 12.2 % (20.5-60.0); Mean Corpuscular HGB Conc 30.4 g/dL (29.9-35.2); Mean Corpuscular Hemoglobin 22.7 pg (26.7-34.0); Mean Corpuscular Volume 74.8 fL (81.0-99.0); Mean Platelet Volume 9.6 fL (9.5-13.5); Monocytes Absolute Auto 0.4 10^3/uL (0.3-0.8); Monocytes Percent Auto 4.9 % (1.7-12.0); Neutrophils Absolute Auto 6.6 10^3/uL (1.4-6.5); Neutrophils Percent Auto 82.6 % (43.0-75.0); Platelet Count 389 10^3/uL (150-450); Red Blood Count 4.84 10^6/uL (4.20-5.40); Red Cell Distribution Width 17.2 % (11.0-15.0)
[2024-12-14 06:22] LABS: Anion Gap 15.3; BUN Creatinine Ratio 11.1; Calcium 8.6 mg/dL (8.5-10.1); Carbon Dioxide 25.6 mmol/L (21.0-32.0); Chloride 103 mmol/L (98-107); Estimated GFR (African America >60 (>=60 mL/min/1.73m^2); Estimated GFR (Non-African Ame >60 (>=60 mL/min/1.73m^2); Glucose 184 mg/dL (74-106); Potassium 3.9 mmol/L (3.5-5.1); Sodium 140 mmol/L (136-145)
[2024-12-14 06:23] LABS: Estimated Average Glucose 143 mg/dL; Glycohemoglobin A1C 6.6 % (4.5-6.2)
[2024-12-14] MEDS: KETOROLAC TROMETHAMINE 30 MG/ML VIAL IVP ×2 (09:44→12:03)
[2024-12-14] MEDS: ONDANSETRON 4 MG RAPDIS TABLET PO (09:44)
[2024-12-14] MEDS: SUMATRIPTAN SUCCINATE 50 MG TABLET PO (09:44)
[2024-12-14] MEDS: CARVEDILOL 3.125 MG TABLET PO (09:44)
[2024-12-14] MEDS: PANTOPRAZOLE SODIUM 40 MG TABLET.DR PO (09:44)
--- NOTE | 2024-12-14 11:56 | P.HP_ITS ---
HPI H&P: HPI History of Present Illness Chief complaint: MIGRAINE, intractable headache Narrative: HPI and Hospital Course: 44-year-old female with past medical history of intractable migraine headache, mono ocular loss for which she is currently being worked up for possible multiple sclerosis presented to ED last evening with severe intractable migraine headache associated with blurry vision/photophobia. She reports being at home and receiving a phone call from her GI provider who told her that she will need GI workup for stones in her CBD. She also reports increased stress at work and at home. Patient does not currently use anything for migraine headache and reports that she would get migraine headaches once a year or so and usually requires hospital admission. Since admission she received IV Toradol, valproic acid, promethazine, dexamethasone was also ordered to receive morphine/Ativan as needed. Upon further inquiry, she told me that her visual loss was about 5 years ago. She has no new neurological symptoms except for persistent severe intractable migraine headache. Her pain at the time of my evaluation was 7-8 out of 10. She reports chronic daily headaches for about 2-3 out of 10 and nothing like her current headache. She had CT head upon admission with no significant finding. I was able to review her MRI from 2020 that showed hyperintense FLAIR in parieto-occipital region concerning for demyelinating lesion but no brain mass or stroke. She told me that she has an appointment with a new neurologist in [place]. I explained to her that IV narcotics are typically avoided for abortive therapy for migraine headaches and I discontinued IV morphine. She was given combination of benadryl, toradol, compazine and PO Tylenol with subsequent improvement in her symptoms. Of note, she was also noted to have elevated blood pressure on arrival and was given PO Coreg for it. It seems like she has undiagnosed HTN and will be discharged on oral Norvasc 5 mg daily for HTN. She will need f.u with PCP for HTN. I will also send her home on oral imitrex as needed and recommended f.u with Neurology as outpatient Discharge Diagnosis Intractable migraine/status migrainosus Essential HTN Discharge disposition Home Opioid HPI Opioid Management Most Recent Pain and Opioid Data: Last Pain Scale 0 Today, 14:15 Last Pain Assessment 12/13/24, 17:54 Last MAR Pain Assessment 12/13/24, 14:43 Last ORT Total Score 9 12/13/24, 17:54 Last ORT Risk Category High Risk 12/13/24, 17:54 Review of Systems ROS Status of ROS 10 or more systems reviewed and unremark able except as noted in history and below PFSH PFS Medical History (Updated 12/14/24 @ 14:32 by Shaikh Brenda MD) GERD (gastroesophageal reflux disease) ?K21.9 - Gastro-esophageal reflux disease without esophagitis (ICD-10) Diabetes ?E11.9 - Type 2 diabetes mellitus without complications (ICD-10) Surgical History (Updated 12/13/24 @ 17:51 by Mag Romo) History of cholecystectomy ?Z90.49 - Acquired absence of other specified parts of digestive tract (ICD- 10) History of section ?Z98.891 - History of uterine scar from previous surgery (ICD-10) Family History (Updated 12/13/24 @ 17:52 by Danyell Lloyd) Grandmother Family history of myocardial infarction Family history of stroke Family history of hypertension Family history of diabetes mellitus Grandfather Family history of diabetes mellitus Family history of hypertension Family history of cancer Family history of COPD (chronic obstructive pulmonary disease) Mother Family history of diabetes mellitus Family history of hypertension Social History (Updated 12/13/24 @ 17:54 by Danyell Lloyd) Within the past year, how often did you have a drink containing alcohol: never Within the past year, how often did you have six or more drinks on one occasion: never Score interpretation: A score less than 3 is consistent with normal alcohol consumption. Smoking status: Current every day smoker Second hand tobacco smoke exposure: Yes Non-prescribed substance use: denies use Previous occupational history: [employer] Known occupational exposures/hazards: No Highest level of school completed/degree received: 9th grade Do you want help with school or training: No Are you now , , , , never or living with a partner: How often do you get together with friends or relatives: never How often do you attend scientology or catholic services: never Do you belong to any clubs or organizations such as scientology groups unions, fraternal or athletic groups, or school groups: no Total score: 1 Score interpretation: A score of less than or equal to 1 indicates the most socially isolated. Little interest or pleasure in doing things: not at all Feeling down, depressed, or hopeless: not at all Feel stressed/tense/nervous/anxious/difficulty sleeping: only a little Due to disability, difficulty making decisions: No Do you think of yourself as: straight/heterosexual Gender Identity: female Meds Home Medications and Allergies Home Medications ?Medication ?Instructions ?Recorded ?Confirmed ?Type metformin 500 mg tablet,extended 500 mg PO DAILY 08/0812/13/24 History release 24 hr omeprazole 40 mg capsule,delayed 40 mg PO BID 08/08/24 12/13/24 History release ondansetron 8 mg disintegrating 8 mg PO BID PRN nausea and vomiting 10/20/24 12/13/24 History tablet amlodipine 5 mg tablet 5 mg PO DAILY #30 tabs 12/14 Rx sumatriptan succinate 100 mg tablet See Rx Instruction s PO .COMPLEX #9 12/14/24 Rx tabs Allergies Allergy/AdvReac Type Severity Reaction Status Date / Time promethazine (From Phenergan) Allergy Severe Confusion Verified 08/12/24 07:29 Exam Constitutional Vital Signs, click to edit/add: Last Vital Signs Temp 97.9 F 12/14/24 08:00 Pulse 80 12/14/24 09:49 Resp 18 12/14/24 08:00 BP 157/89 H 12/14/24 08:00 Pulse Ox 97 12/14/24 08:00 O2 Del Method Room Air 12/14/24 08:00 Documenting provider has reviewed patient's vital signs: yes Common normals: no apparent distress and oriented x3 General appearance: cooperative Other: Patient laying in bed, with sunglasses. HENME Common normals: normocephalic and head/scalp atraumatic Head and scalp: normocephalic and atraumatic Eye Common normals: conjunctivae normal and no scleral icterus Conjunctiva: conjunctiva(e) normal Respiratory Common normals: normal respiratory effort and clear to auscultation bilaterally Effort & inspection: able to speak in complete sentences Auscultation: clear to auscultation bilaterally Cardio Common normals: regular rate, S1 normal heart sound and S2 normal heart sound Rate: regular rate Heart sounds: S1 normal and S2 normal GI Common normals: Normal to inspection, nondistended, normoactive bowel sounds present, soft to palpation, non-tender and no hepatosplenomegaly Palpation: soft and no hepatosplenomegaly Extremity Common normals: no clubbing, cyanosis or edema Neuro Common normals: oriented x3, moves all extremities and no focal motor deficits Other: Right monocular visual loss Psych Common normals: mental status grossly normal, denies hallucinations, denies homicidal ideation and denies suicidal ideation Results Labs Labs: Short CBC 12/13/24 12/14/24 Range/Units 13:55 05:55 WBC 6.2 8.0 (4.0-11.0) 10^3/uL Hgb 11.3 L 11.0 L (12.0-16.0) g/dL Hct 36.8 36.2 (36.0-48.0) % Plt Count 406 389 (150-450) 10^3/uL BMP 12/13/24 12/14/24 13:55 05:55 Sodium 139 140 Potassium 3.7 3.9 Chloride 105 103 Carbon Dioxide 26.0 25.6 BUN 6.0 L 9.0 Creatinine 0.87 0.81 Glucose 103 184 H Calcium 8.9 8.6 Liver Function 12/13/24 Range/Units 13:55 Total Bilirubin 0.3 (0.2-1.0) mg/dL AST 15 (15-37) U/L ALT 28 (14-59) U/L Alkaline Phosphatase 79 (46-116) U/L Albumin 3.6 (3.4-5.0) g/dL Assessment and Plan Assessment and Plan (1) Intractable migraine without aura and with status migrainosus: (2) Diabetes: Qualifiers: Diabetes mellitus complication status: without complication Diabetes mellitus director long term care insulin use: without detention use Diabetes mellitus type: type 2 Qualified Code(s): E11.9 - Type 2 diabetes mellitus without complications (3) HTN (hypertension): Qualifiers: Hypertension type: primary hypertension Qualified Code(s): I10 - Essential (primary) hypertension Plan P/w status migrainosus. Headache improved. Will d/c on Sumatriptan as needed. F/u with Neurology. Patient also noted to have elevated BP, Will d/c on oral Norvasc. F/u with PCP for HTN
[2024-12-14] MEDS: PROCHLORPERAZINE 10 MG/2 ML VIAL IV (12:04)
[2024-12-14] MEDS: DIPHENHYDRAMINE HCL 50 MG/ML VIAL IVP (12:04)
[2024-12-14] MEDS: CAFFEINE 200 MG TABLET 400 MG PO (12:04)
[2024-12-14 12:09] LABS: Glucometer 136 mg/dL (74-106)
--- OUTSIDE RECORDS SUMMARY | 2024-12-16 08:15 | XMS_ITS | CCD ---
Author Organization [facility] Care Team Providers Care Non Linear Editor Name Role Phone Unavailable Primary Care Provider UnavailYOJANA Moran Attending Unavailable Cinthya PANEL MACHINE TENDER - JOB PLACEMENT OFFICER, Seven Primary Care Provider 1( [phone] ADELINE FLORENTINO Referring Unavailable CINTHYA, SEVEN Primary Care Unavailable ADELINE FLORENTINO Referring Unavailable CINTHYA, SEVEN Primary Care Unavailable ADELINE FLORENTINO Referring Unavailable CINTHYA, SEVEN Primary Care Unavailable GISELA CORDOVA Referring Unavailable CINTHYA, SEVEN Primary Care Unavailable Cinthya PANEL MACHINE TENDER-CONSTRUCTION PROJECT MANAGER, Hornitos Primary Care Provider JANELL MARLEY Attending Unavailable CINTHYA, SEVEN Referring Unavailable [...] Primary Care Unavailable MARLON TILLMAN Attending Unavailable PRIMO, MARLON Referring Unavailable CINTHYA, SEVEN Primary Care Unavailable LILY SNELL Attending Unavail able CINTHYA, SEVEN Primary Care Unavailable OFELIA TERRAZAS Attending Unavailable NINI, OFELIA M Referring Unavailable CINTHYA, SEVEN Primary Care Unavailable NINIOFELIA M Attending Unavailable NINI, OFELIA M Referring Unavailable CINTHYA, SEVEN Primary Care Unavailable CINTHYA, SEVEN Referring Unavailable CINTHYA, SEVEN Primary Care Unavailable CINTHYA, SEVEN Primary Care Unavailable LIUDMILA GARCIA Attending Unavailable CHARLIE YOUNG Attending Unavailable CHARLIE YOUNG Referring Unavailable CINTHYA, SEVEN Primary Care Unavailable CINTHYA, SEVEN Primary Care Unavailable CHEHADE, ANGIE E Attending Unavailable CHEHADE ANGIE E Attending Unavailable CHEHADE, ANGIE E Referring Unavailable CINTHYA, SEVEN Primary Care Unavailable CHEHADE, ANGIE E Attending Unavailable CHEHADE, ANGIE E Referring Unavailable CINTHYA, SEVEN Primary Care Unavailable KOLENOMAN, CAMPOS M Referring Unavailable CINTHYA, SEVEN Primary Care Unavailable KOFFMAN, CAMPOS M Referring Unavailable CINTHYA, SEVEN Primary Care Unavailable CINTHYA, SEVEN Referring Unavailable CINTHYA, SEVEN Primary Care Unavailable CINTHYA, SEVEN Referring Unavailable CINTHYA, SEVEN Primary Care Unavailable CHAPARRITA BROWN Referring Unavailable CINTHYA, SEVEN Primary Care Unavailable MALLORY, GISELA M Referring Unavailable CINTHYA, SEVEN Primary Care Unavailable CINTHYA, SEVEN Primary Care Unavailable SUSHILA CHOW Attending Unavailable MALLORY, GISELA M Attending Unavailable MALLORY, GISELA M Referring Unavailable [...] Referring Unavailable CINTHYA, SEVEN Primary Care Unavailable Unavailable Primary Care Provider Unavailabl e Allergies Allergy Classification Reported Allergen(s) Allergy Type Date of Onset Reaction(s) Facility (9 sources) Promethazine; Translations: [PROMETHAZINE] Drug Allergy 03-26-2020 Other [facility] Work Phone: Medications Current Medications Medication Drug Class(es) Dates Sig (Normalized) Sig (Original) [id number] 200 actuat albuterol 0.09 mg/actuat metered dose [...] before meals. 11/21/2022 Active polyethylene glycol 3350 46146 mg powder for oral solution (2 sources) [...] mouth once daily. 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 Measurements Intervals [place] Rate: 83 P: 44 WY: 146 QRS: 63 QRSD: 80 T: 10 QT: 374 QTc: 413 Interpretive Statements 1100 Sinus rhythm 4068 Nonspecific Twave abnormality Abnormal ECG Compared to ECG 06/12/2023 11:48:07 No significant changes Electronically Signed On 12-14-2024 7:42:38 EDT by BROOKE CACERES M.D. Dictated By: BROOKE CACERES Signed By: 12/14/24 0743 DD/ 38 TD/TT: Dramatic Teacher: [facility] Radiology, Radiologist, - 12/14/2024 [place] [address] Electrocardiograph Report Signed Patient: RAYA GONZALES MR#: [id number] : 1980 Acct:[id number] Age/Sex: 44 / F ADM Date: 12/13/24 Loc: MS 221-[address]: Janell Ta D.O. 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 Measurements Intervals [place] Rate: 83 P: 44 WY: 146 QRS: 63 QRSD: 80 T: 10 QT: 374 QTc: 413 Interpretive Statements 1100 Sinus rhythm 4068 Nonspecific Twave abnormality Abnormal ECG Compared to ECG 06/12/2023 11:48:07 No significant changes Electronically Signed On 12-14-2024 7:42:38 EDT by BROOKE CACERES M.D. Dictated By: BROOKE CACERES Signed By: 12/14/24 0743 DD/ 38 TD/TT: Dramatic Teacher: [facility] [employer] ECG 12-LEADOrdered By: Radio logist Radiology on 12-14-2024 [facility] [employer] Work Phone: ECG 12-LEADon 12-13-2024 Radiology Study observation (narrative) [facility] [employer] US ABDOMEN LMTDon 10-21-2024 US ABDOMEN LMTD [...] Brooks MD on 10/21/2024 6:27 AM Normal [facility] Surgical Pathologyon 025 Surgical Pathology Normal [facility] Comment on above: Result Comment: [facility] [address] [place] [address] Surgical Pathology Consultation Patient Name:RAYA GONZALES:1980 (Age: 44)Gender:FTaken:09/09/2024Reported:09/17/2024Physician(s):Elvi Chapman M.D. ([phone])Copy To: Rec. #:[id number]: #[id number] Final Pathologic Diagnosis 1. Endocervix, curettage: Unremarkable endocervical epithelium. 2. Endometrium, curettage: Proliferative endometrium. Report Electronically Signed Out 09/17/2024Miguel Carney MD [place] [address], License number: [id number]. Clinical History Heavy periods. Gross Description 1. Received in formalin labeledVINNY ECC is a pale mucoid material mixed with robles friable soft tissue bits, 0.7 x 0.4 x 0.1 cm in aggregate. The specimens are filtered and submitted in single cassette. (1, ns, [id number], m1) TB 2. Received in formalin labeled, VINNY EMC are robles delicate to friable soft tissue bits admixed with brown hemorrhagic material and scant brown mucoid material, 2.5 x 2 x 0.3 cm in aggregate. The specimens are filtered and submitted in single cassette. Fixation Time: Tissue removed from patient: 1410 Time specimen placed in formalin: 1410 Cold ischemic time: Less than 1 minute Total fixation time: 28.5 hours (1, ns, [id number], m1) TB tgb/09/10/2024NSK Specimen(s) Received 1: Endocervical curettings 2: Endometrial curettings Fee Codes(s): 1; 83352 2; 71792 BASIC METABOLIC PANLon 09-03 Anion gap [Moles/Vol] 6 mmol/L Normal 5-15 [facility] Comment on above: Performed By: #### ASHLEY Hooks MP ####[facility] ([id number])[address] [address], [place] [address] Calcium [Mass/Vol] 8.8 mg/dL Normal 8.5-10.5 [facility] Comment on above: Performed By: #### ASHLEY Hooks MP ####[facility] ([id number])[address], [place] [address] Chloride [Moles/Vol] 104 mmol/L Normal 98-109 [facility] Comment on above: Performed By: #### ANAMARIA Hooks MPA ####[facility] ([id number])[address] [address], [place] [address] CO2 [Moles/Vol] 28 mmol/L Normal 22-32 [facility] Comment on above: Performed By: #### ANAMARIA Hooks MPA ####[facility] ([id number])[address] [address] [address] Creatinine [Mass/Vol] 0.86 mg/dL Normal 0.40-1.00 [facility] Comment on above: Result Comment: METH OD TRACEABLE TO IDMS STANDARD Performed By: #### Jessee PEDRAZA CBCShauna ####[facility] ([id number])[address] [address] GFR/1.73 sq M.predicted among non-blacks MDRD (S/P/Bld) [Vol rate/Area] 86 mL/min/{1.73_m2} Normal >59 [facility] Comment on above: Result Comment: Reported eGFR is based on the CKD-EPI 2020 equation that does not use a race coefficient. Performed By: #### B KEILA CBCA ####[facility] ([id number])[address] [address] Glucose [Mass/Vol] 124 mg/dL High 65-99 [facility] Comment on above: Performed By: #### ASHLEY Hooks MP ####[facility] ([id number])[address] [address] Potassium [Moles/Vol] 4.2 mmol/L Normal 3.5-5.0 [facility] Comment on above: Performed By: #### Jessee PEDRAZA CBCA ####[facility] ([id number])[address] [address] Sodium [Moles/Vol] 138 mmol/L Normal 134-146 [facility] Comment on above: Performed By: #### Jessee PEDRAZA CBCA ####[facility] ([id number])[address] [address] Urea nitrogen [Mass/Vol] 9 mg/dL Normal 5-23 [facility] Comment on above: Performed By: #### ANAMARIA Hooks MPA ####[facility] ([id number])[address] [address] CBC AND AUTO DIFFon 09-03-19 25 ABSOLUTE BASOPHIL 0.0 X10E9/L Normal 0.0-0.2 [facility] Comment on above: Performed By: #### Jessee PEDRAZA CBCA ####[facility] ([id number])[address] [address], [place] [address] ABSOLUTE NEUTROPHIL 4.1 X10E9/L Normal 1.5-6.6 [facility] Comment on above: Performed By: #### B KEILA, CBCA ####[facility] ([id number])[address] [address], [place] [address] Basophils/100 WBC (Bld) 0.5 % Normal [facility] Comment on above: Performed By: #### B MP, CBCA ####[facility] ([id number])[address] [address] [address] Eosinophils (Bld) [#/Vol] 0.2 10*3/uL Normal 0.0-0.4 [facility] Comment on above: Performed By: #### B KEILA, CBCA ####[facility] ([id number])[address] [address] [address] Eosinophils/100 WBC (Bld) 2.6 % Normal [facility] Comment on above: Performed By: #### B KEILA, CBCA ####[facility] ([id number])[address] [place] [address] Erythrocyte distribution width (RBC) [Ratio] 18.8 % High 11.5-15.0 [facility] Comment on above: Performed By: #### B KEILA, CBCA ####[facility] ([id number])[address] [address] [place] [address] Hematocrit (Bld) [Volume fraction] 39.6 % Normal 35-47 [facility] Comment on above: Performed By: #### B KEILA, CBCA ####[facility] ([id number])[address] [address] [place] [address] Hemoglobin (Bld) [Mass/Vol] 12.3 g/dL Normal 11.7-15.5 [facility] Comment on above: Performed By: #### B MP, CBCA ####[facility] ([id number])[address] [address] [place] [address] Lymphocytes (Bld) [#/Vol] 1.6 10*3/uL Normal 1.0-3.5 [facility] Comment on above: Performed By: #### B KEILA, CBCA ####[facility] ([id number])[address], [address] [place] [address] Lymphocytes/100 WBC (Bld) 25.1 % Normal [facility] Comment on above: Performed By: #### B KEILA, CBCA ####[facility] ([id number])[address] [address] [place] [address] MCH (RBC) [Entitic mass] 23.4 pg Low 27-34 [facility] Comment on above: Performed By: #### B KEILA, CBCA ####[facility] ([id number])[address] [address] [place] [address] MCHC (RBC) [Mass/Vol] 31.0 g/dL Low 32-36 [facility] Comment on above: Performed By: #### B KEILA, CBCA ####[facility] ([id number])[address] [address] MCV (RBC) [Entitic vol] 76 fL Low 80-100 [facility] Comment on above: Performed By: #### B KEILA, CBCA ####[facility] ([id number])[address] [address] [place] [address] Monocytes (Bld) [#/Vol] 0.4 10*3/uL Normal 0-0.9 [facility] Comment on above: Performed By: #### B MP, CBCA ####[facility] ([id number])[address] [address] [place] [address] Monocytes/100 WBC (Bld) 5.9 % Normal [facility] Comment on above: Performed By: #### B KEILA, CBCA ####[facility] ([id number])[address] [address], [place] [address] Neutrophils/100 WBC (Bld) 65.9 % Normal [facility] Comment on above: Performed By: #### B MP, CBCA ####[facility] ([id number])[address] [address] Platelet mean volume (Bld) [Entitic vol] 8.2 fL Normal 7-12 [facility] Comment on above: Performed By: #### B MP, CBCA ####[facility] ([id number])[address] [address] Platelets (Bld) [#/Vol] 358 10*3/uL Normal 150-450 [facility] Comment on above: Performed By: #### B KEILA, CBCA ####[facility] ([id number])[address] [address], [place] [address] RBC COUNT 5.25 X10E12/L High 3.80-5.20 [facility] Comment on above: Performed By: #### B KEILA, CBCA ####[facility] ([id number])[address] [address] WBC (Bld) [#/Vol] 6.3 10*3/uL Normal 4.0-11.0 [facility] Comment on above: Performed By: #### B KEILA, CBCA ####[facility] ([id number])[address] [place] [address] XR Chest PA and Lateralon Azael Garibay [...] Azael Garibay MD on 09/03/2024 10:49 PM [facility] Study observation (narrative) [facility] XR Chest PA and LateralOrder ed By: Azael Garibay on 09-03-2024 [facility] Work Phone: Surgical Pathologyon 024 Surgical Pathology Normal [facility] Comment on above: Result Comment: [facility] [address] [place] [address] Surgical Pathology Consultation Patient Name:RAYA GONZALES:1980 (Age: 44)Gender:FTaken:4Reported:07/26/2024hysician(s):Elvi Chapman M.D. ([phone])Copy To: Rec. #:[id number]: #[id number] Final Pathologic Diagnosis 1. Endocervix - ECC: - Benign surface endocervical lining with focal squamous metaplasia (no dysplasia or neoplasia) 2. Endometrium - biopsy: - Mildly disordered proliferative endometrium (no polyps, hyperplasia or neoplasia) Report Electronically Signed Out hoover/07/26/2024Emanuel Islas MD Interpretation performed at [facility], [address] [place] [address], License number: [id number]. Clinical History Dysfunctional uterine bleeding (DUB) N93.8. Gross Description 1. Received in formalin labeled ARIANNA GONZALES is a plastic wired brush with robles-brown soft tissue fragments admixed with hemorrhagic and mucoid material, 2.7 x 1.2 x 0.2 cm in aggregate. The specimen is filtered and entirely submitted in a single cassette. (1, ns, [id number],m2) DM. 2. Received in formalin labeled VINNY, EMB robles-brown soft tissue fragments and base with hemorrhagic and mucoid material, 2.7 x 2.3 x 0.3 cm in aggregate. The specimen is filtered and entirely submitted in a single cassette. (1, мария, [id number],m2) DM. Fixation Time: Tissue removed from patient: 1946 Time specimen placed in formalin: 1946 Cold ischemic time: Less than 1 minute Total fixation time: 14-1/2 hours dm/07/16/2024NSK Specimen(s) Received 1: Endocervical curettings 2: Endometrial biopsy Fee Codes(s): 1; 28297 2; 36436 COMPLETE BLOOD COUNTon 07-09 Erythrocyte distribution width (RBC) [Ratio] 16.8 % High 11.5-15.0 [facility] Comment on above: Performed By: #### 2 0415-6, 2842-3, 3016-3, 59514-2, 05133-8, CBC, 3024-7 ####[facility] ([id number])[address] [address] [place] [address] Hematocrit (Bld) [Volume fraction] 43.3 % Normal 35-47 [facility] Comment on above: Performed By: #### 2 0415-6, 2842-3, 3016-3, 50377-2, 69861-7, CBC, 3024-7 ####[facility] ([id number])[address] [address] [place] [address] Hemoglobin (Bld) [Mass/Vol] 13.8 g/dL Normal 11.7-15.5 [facility] Comment on above: Performed By: #### 2 0415-6, 2842-3, 3016-3, 34046-5, 51183-3, CBC, 3024-7 ####[facility] ([id number])[address] [address] [place] [address] MCH (RBC) [Entitic mass] 24.0 pg Low 27-34 [facility] Comment on above: Performed By: #### 2 0415-6, 2842-3, 3016-3, 45001-7, 85847-6, CBC, 3024-7 ####[facility] ([id number])[address], [address] [place] [address] MCHC (RBC) [Mass/Vol] 32.0 g/dL Normal 32-36 [facility] Comment on above: Performed By: #### 2 0415-6, 2842-3, 3016-3, 13403-6, 64478-6, CBC, 3024-7 ####[facility] ([id number])[address] [address] [place] [address] MCV (RBC) [Entitic vol] 75 fL Low 80-100 [facility] Comment on above: Performed By: #### 2 0415-6, 2842-3, 3016-3, 01962-2, 80162-7, CBC, 3024-7 ####[facility] ([id number])[address] [address] [place] [address] Platelet mean volume (Bld) [Entitic vol] 8.0 fL Normal 7-12 [facility] Comment on above: Performed By: #### 2 0415-6, 2842-3, 3016-3, 49017-8, 22777-6, CBC, 3024-7 ####[facility] ([id number])[address] [address] [place] [address] Platelets (Bld) [#/Vol] 382 10*3/uL Normal 150-450 [facility] Comment on above: Performed By: #### 2 0415-6, 2842-3, 3016-3, 12450-9, 38710-9, CBC, 3024-7 ####[facility] ([id number])[address] [address] [place] [address] RBC COUNT 5.77 X10E12/L High 3.80-5.20 [facility] Comment on above: Performed By: #### 2 0415-6, 2842-3, 3016-3, 46095-7, 57952-5, CBC, 302-7 ####[facility] ([id number])[address] [address] WBC (Bld) [#/Vol] 9.0 10*3/uL Normal 4.0-11.0 [facility] Comment on above: Performed By: #### 2 0415-6, 2842-3, 3016-3, 64440-1, 77413-1, CBC, 302-7 ####[facility] ([id number])[address], [address] [place] [address] FREE T4on 07-09-2024 Free T4 [Mass/Vol] 0.88 ng/dL Normal 0.61-1.60 [facility] Comment on above: Result Comment: NEW REFERENCE RANGE FOR PEDIATRIC PATIENTS Performed By: #### 2 0415-6, 2842-3, 3016-3, 17452-9, 32787-6, CBC, 302-7 ####[facility] ([id number])[address], [address] [place] [address] Follitropin Qnon 07-09-2024 FOLLICLE STIM HORMONE 6.9 mIU/mL Normal [facility] Comment on above: Result Comment: NORMAL FEMALE Luteal 1.8-5.1 mIU/mL Follicular 3.8-8.8 mIU/mL Mid Cycle 4.5-22.5 mIU/mL Post [place] 16.7-113.6 mIU/mL Performed By: #### 2 0415-6, 2842-3, 3016-3, 75014-0, 91035-0, CBC, 3024-7 ####[facility] ([id number])[address] [address] HCG.beta subunit IA 3rd IS Q non 07-09-2024 SERUM B HCG,3RD I.S. <5 Normal [facility] Comment on above: Result Comment: NEW [...] Performed By: #### 2 0415-6, 2842-3, 3016-3, 94341-0, 16079-1, CBC, 3024-7 ####[facility] ([id number])[address], [address] [place] [address], [place] [address] Lutropin Qnon 07-09-2024 LUTEINIZING HORMONE 2.6 mIU/mL Normal [facility] Comment on above: Result Comment: NORMAL FEMALE Follicular 2.1-10.9 mIU/mL Mid Cycle 19.2-103 mIU/mL Luteal 1.2-12.9 mIU/mL Post Sandhya 10.9-58.6 mIU/mL Performed By: #### 2 0415-6, 2842-3, 3016-3, 71430-4, 89625-3, CBC, 3024-7 ####[facility] ([id number])[address] [place] [address] Prolactin [Mass/Vol]on 07-09 PROLACTIN 25.4 ng/mL Normal 3.3-26.7 [facility] Comment on above: Performed By: #### 2 0415-6, 2842-3, 3016-3, 61482-8, 52014-7, CBC, 3024-7 ####[facility] ([id number])[address] [address] TSH Qnon 07-09-2024 TSH 3.82 uIU/mL Normal 0.49-4.67 [facility] Comment on above: Result Comment: NEW REFERENCE RANGE FOR PEDIATRIC PATIENTS Performed By: #### 2 0415-6, 2842-3, 3016-3, 71668-6, 97936-9, CBC, 3024-7 ####[facility] ([id number])[address], [address] [place] [address] US PELVIC WITH TRANSVAGINALo n 06-24-2024 US [...] [facility] CBC AND AUTO DIFFon 06-21-20 ABSOLUTE BASOPHIL 0.1 X10E9/L Normal 0.0-0.2 [facility] Comment on above: Performed By: #### P INR, CMP, CBCA, 3040-3, 80628-2 ####[facility] ([id number])[address] [place] [address] ABSOLUTE NEUTROPHIL 3.7 X10E9/L Normal 1.5-6.6 [facility] Comment on above: Performed By: #### P INR, CMP, CBCA, 3040-3, 85614-8 ####[facility] ([id number])[address] [place] [address] Basophils/100 WBC (Bld) 0.9 % Normal [facility] Comment on above: Performed By: #### P INR, CMP, CBCA, 3040-3, 38393-8 ####[facility] ([id number])[address] [place] [address] Eosinophils (Bld) [#/Vol] 0.3 10*3/uL Normal 0.0-0.4 [facility] Comment on above: Performed By: #### P INR, CMP, CBCA, 3040-3, 80301-9 ####[facility] ([id number])[address] [place] [address] Eosinophils/100 WBC (Bld) 4.2 % Normal [facility] Comment on above: Performed By: #### P INR, CMP, CBCA, 3040-3, 24095-1 ####[facility] ([id number])[address] [place] [address] Erythrocyte distribution width (RBC) [Ratio] 16.0 % High 11.5-15.0 [facility] Comment on above: Performed By: #### P INR, CMP, CBCA, 3040-3, 80562-6 ####[facility] ([id number])31 [place] [address] 59564 Hematocrit (Bld) [Volume fraction] 37.6 % Normal 35-47 [facility] Comment on above: Performed By: #### P INR, CMP, CBCA, 0-3, 74715-9 ####[facility] ([id number])[address] [place] [address] 74642 Hemoglobin (Bld) [Mass/Vol] 12.0 g/dL Normal 11.7-15.5 [facility] Comment on above: Performed By: #### P INR, CMP, CBCA, 03, 22153-4 ####[facility] ([id number])[address] [place] [address] 46397 Lymphocytes (Bld) [#/Vol] 1.9 10*3/uL Normal 1.0-3.5 [facility] Comment on above: Performed By: #### P INR, CMP, CBCA, 30403, 80131-9 ####[facility] ([id number])[address] [place] [address] 13501 Lymphocytes/100 WBC (Bld) 29.8 % Normal [facility] Comment on above: Performed By: #### P INR, CMP, CBCA, 3040-3, 66051-1 ####[facility] ([id number])[address] [place] [address] 70619 MCH (RBC) [Entitic mass] 24.2 pg Low 27-34 [facility] Comment on above: Performed By: #### P INR, CMP, CBCA, 3040-3, 17928-7 ####[facility] ([id number])[address] [place] [address] 05288 MCHC (RBC) [Mass/Vol] 31.8 g/dL Low 32-36 [facility] Comment on above: Performed By: #### P INR, CMP, CBCA, 3040-3, 85811-8 ####[facility] ([id number])[address] [place] [address] 24238 MCV (RBC) [Entitic vol] 76 fL Low 80-100 [facility] Comment on above: Performed By: #### P INR, CMP, CBCA, 3040-3, 65776-6 ####[facility] ([id number])[address] [place] [address] 75748 Monocytes (Bld) [#/Vol] 0.5 10*3/uL Normal 0-0.9 [facility] Comment on above: Performed By: #### P INR, CMP, CBCA, 3040-3, 04022-0 ####[facility] ([id number])[address] [place] [address] 61651 Monocytes/100 WBC (Bld) 7.9 % Normal [facility] Comment on above: Performed By: #### P INR, CMP, CBCA, 3040-3, 26509-3 ####[facility] ([id number])[address] [place] [address] 98974 Neutrophils/100 WBC (Bld) 57.2 % Normal [facility] Comment on above: Performed By: #### P INR, CMP, CBCA, 3040-3, 29386-4 ####[facility] ([id number])[address] [place] [address] 16522 Platelet mean volume (Bld) [Entitic vol] 7.6 fL Normal 7-12 [facility] Comment on above: Performed By: #### P INR, CMP, CBCA, 3040-3, 06779-5 ####[facility] ([id number])[address] [place] [address] 24178 Platelets (Bld) [#/Vol] 408 10*3/uL Normal 150-450 [facility] Comment on above: Performed By: #### P INR, CMP, CBCA, 3040-3, 14527-7 ####[facility] ([id number])[address] [place] [address] 20933 RBC COUNT 4.95 X10E12/L Normal 3.80-5.20 [facility] Comment on above: Performed By: #### P INR, CMP, CBCA, 3040-3, 17414-2 ####[facility] ([id number])[address] [place] [address] 51935 WBC (Bld) [#/Vol] 6.4 10*3/uL Normal 4.0-11.0 [facility] Comment on above: Performed By: #### P INR, CMP, CBCA, 3040-3, 34027-1 ####[facility] ([id number])[address] [place] [address] 57529 COMPREHENSIVE METABOLIC PANE Toribio 06-21-2024 Albumin [Mass/Vol] 4.1 g/dL Normal 3.2-5.3 [facility] Comment on above: Performed By: #### P INR, CMP, CBCA, 3040-3, 30036-0 ####[facility] ([id number])[address] [place] [address] 66426 ALP [Catalytic activity/Vol] 71 U/L Normal 39-130 [facility] Comment on above: Performed By: #### P INR, CMP, CBCA, 3040-3, 17436-3 ####[facility] ([id number])[address] [place] [address] 77611 ALT [Catalytic activity/Vol] 44 U/L High 0-31 [facility] Comment on above: Performed By: #### P INR, CMP, CBCA, 3040-3, 33513-0 ####[facility] ([id number])[address] [place] [address] 51370 Anion gap [Moles/Vol] 9 mmol/L Normal 5-15 [facility] Comment on above: Performed By: #### P INR, CMP, CBCA, 3040-3, 84081-0 ####[facility] ([id number])[address] [place] [address] 81861 AST [Catalytic activity/Vol] 34 U/L Normal 0-41 [facility] Comment on above: Performed By: #### P INR, CMP, CBCA, 3040-3, 54357-0 ####[facility] ([id number])[address] [place] [address] 39822 Bilirubin [Mass/Vol] 0.5 mg/dL Normal 0.3-1.2 [facility] Comment on above: Performed By: #### P INR, CMP, CBCA, 3040-3, 80715-4 ####[facility] ([id number])[address] [place] [address] 96056 Calcium [Mass/Vol] 9.1 mg/dL Normal 8.5-10.5 [facility] Comment on above: Performed By: #### P INR, CMP, CBCA, 3040-3, 33515-4 ####[facility] ([id number])[address] [place] [address] 92492 Chloride [Moles/Vol] 103 mmol/L Normal 98-109 [facility] Comment on above: Performed By: #### P INR, CMP, CBCA, 3040-3, 73394-2 ####[facility] ([id number])[address] [place] [address] CO2 [Moles/Vol] 24 mmol/L Normal 22-32 [facility] Comment on above: Performed By: #### P INR, CMP, CBCA, 3040-3, 99966-9 ####[facility] ([id number])[address] [place] [address] 56501 Creatinine [Mass/Vol] 0.68 mg/dL Normal 0.40-1.00 [facility] Comment on above: Result Comment: METH OD TRACEABLE TO IDMS STANDARD Performed By: #### P INR, CMP, CBCA, 3040-3, 34206-3 ####[facility] ([id number])[address] [place] [address] 53675 eGFR (CKD-EPI) NON-RACE DEPENDENT >90 Normal >59 [facility] Comment on above: Result Comment: Reported eGFR is based on the CKD-EPI 2020 equation that does not use a race coefficient. Performed By: #### P INR, CMP, CBCA, 3040-3, 33598-7 ####[facility] ([id number])[address] [place] [address] 56438 Glucose [Mass/Vol] 108 mg/dL High 65-99 [facility] Comment on above: Performed By: #### P INR, CMP, CBCA, 3040-3, 63179-7 ####[facility] ([id number])[address] [place] [address] 14837 Potassium [Moles/Vol] 3.8 mmol/L Normal 3.5-5.0 [facility] Comment on above: Performed By: #### P INR, CMP, CBCA, 3040-3, 30853-2 ####[facility] ([id number])[address] [place] [address] 21239 Protein [Mass/Vol] 7.5 g/dL Normal 6.0-8.0 [facility] Comment on above: Performed By: #### P INR, CMP, CBCA, 3040-3, 62850-1 ####[facility] ([id number])[address] [place] [address] 56243 Sodium [Moles/Vol] 136 mmol/L Normal 134-146 [facility] Comment on above: Performed By: #### P INR, CMP, CBCA, 3040-3, 66340-2 ####[facility] ([id number])[address] [place] [address] 54687 Urea nitrogen [Mass/Vol] 10 mg/dL Normal 5-23 [facility] Comment on above: Performed By: #### P INR, CMP, CBCA, 3040-3, 77397-5 ####[facility] ([id number])[address] [place] [address] ABDOMEN AND PELVIS W CONT on [...] By: #### P INR, CMP, CBCA, 3040-3, 57388-2 ####[facility] ([id number])[address] [place] [address] [place] [address] PROTIME AND INRon 06-21-2024 INR Coag (PPP) [Relative time] 1.0 {INR} Normal 0.8-1.1 [facility] Comment on above: Performed By: #### P INR, CMP, CBCA, 3040-3, 63126-8 ####[facility] ([id number])[address] [place] [address] 38569 PT Coag (PPP) [Time] 11.6 s Normal 9.8-13.2 [facility] Comment on above: Result Comment: NEW REFERENCE RANGE Performed By: #### P INR, CMP, CBCA, 3040-3, 32786-1 ####[facility] ([id number])[address] [place] [address], [place] [address] URN MACROSCOPIC NURon 2023 BILIRUBIN JOURDAN Negative Normal NEG [facility] Comment on above: Performed By: #### N UM ####[facility] ([id number])[address] [place] [address] [place] [address] BLOOD/HGB JOURDAN Negative Normal NEG [facility] Comment on above: Performed By: #### N UM ####[facility] ([id number])[address] [place] [address] [place] [address] GLUCOSE JOURDAN Negative Normal NEG [facility] Comment on above: Performed By: #### N UM ####[facility] ([id number])[address] [place] [address] [place] [address] KETONES JOURDAN Negative Normal NEG [facility] Comment on above: Performed By: #### N UM ####[facility] ([id number])[address] [place] [address] 60259 LEUKOCYTE ESTERASE JOURDAN Negative Normal NEG [facility] Comment on above: Performed By: #### N UM ####[facility] ([id number])[address] [place] [address] 19529 NITRITE JOURDAN Negative Normal NEG [facility] Comment on above: Performed By: #### N UM ####[facility] ([id number])[address] [place] [address] 03542 PH JOURDAN 6.0 Normal 5.0-8.5 [facility] Comment on above: Performed By: #### N UM ####[facility] ([id number])[address] [place] [address] 35010 PROTEIN JOURDAN Negative Normal NEG [facility] Comment on above: Performed By: #### N UM ####[facility] ([id number])[address] [place] [address] 22683 SPECIFIC GRAVITY JOURDAN 1.010 Normal 1.003-1.035 [facility] Comment on above: Performed By: #### N UM ####[facility] ([id number])[address] [place] [address] 13309 UROBILINOGEN JOURDAN 0.2 eu/dL Normal <1.1 [facility] Comment on above: Performed By: #### N UM ####[facility] ([id number])[address] [place] [address] 25313 aPTT Coag (PPP) [Time]on aPTT Coag (Bld) [Time] 34 s Normal 26-37 [facility] Comment on above: Result Comment: NEW REFERENCE RANGE Performed By: #### P INR, CMP, CBCA, 3040-3, 04993-6 ####[facility] ([id number])[address] [place] [address] 46442 Cytologyon 06-19-2024 Cytology Normal [facility] Comment on above: Result Comment: [facility] [address] [place] [address] Gynecologic Cytology Consultation Patient Name:RAYA GONZALES:1980 (Age: 44)Gender:FTaken:4Reported:4Physician(s):Gisela Cordova, PANEL MACHINE TENDER-[facility] ([phone])Copy To: Rec. #:[id number]: #[id number] Final Cytologic Interpretation ThinPrep Pap Test (Cervical): Satisfactory for evaluation. A transformation zone component is not identified via imaging-assisted review, using [employer] Thin Prep Imaging System, within 22 microscopic castillo of view. NEGATIVE FOR INTRAEPITHELIAL LESION OR MALIGNANCY. [facility] [place]/07/05/2024 [place] [address], License number: [id number]. Electronically Signed Out By MARIAH Loving(ASCP) Date of Last Menstrual Period: 05/14/24 Other Clinical Conditions: Abnormal Bleeding Z01.419 Business Account Leader exam wo/abn findings Source of Specimen ThinPrep Pap Test (Cervical) Thin Prep Pap (TELECOMMUNICATIONS CABLE JOINTER) Fee Code(s): G0145 The Pap test is a screening test with an inherent, but low, probability of error. The Pap test is primarily effective for the diagnosis and prevention of squamous cell carcinoma. Regular screening is critical for prevention. ThinPrep liquid-based slides, which meet the Wood Cutter criteria for automated screening, have been screened by the ThinPrep Imaging System (as of 04/16/07) along with an additional manual rescreening by a supervisor inspection and testing and, if indicated, by a pathologist. HIGH RISK HPV W/GENOon 06-19 HPV 31+33+35+39+45+51+52+ 56+58+59+66+68 DNA JOSELUIS+probe Ql (Cvx) HPV SPECIMEN TYPE ThinPrep HPV 16 Negative (qualifier value) HPV 18 Negative (qualifier value) OTHER HIGH RISK HPV Negative (qualifier value) HPV types 31,33,35,39,45,52,56,5 8,59,66 and 68 DNA were undetectable. Normal [facility] Comment on above: Performed By: #### 7 1431-1 ####[facility] ([id number])[address] [place], [place] [address] ([id number])[address] [facility], [address] [address] Alpha 1 antitrypsin Nephelom etry [Mass/Vol]on 06-17-2024 ALPHA 1 ANTITRYPSIN 193 mg/dL Normal 83-199 [facility] Comment on above: Performed By: #### 2 6449-9, 43444-9, HA1C, IMGB, 82206-6, CBC, THYR, 6771-0, 2132-03 #### [facility] ([id number]) [address] [facility], [address] [address] #### 42048-9 #### [facility] ([id number]) [address] [place] [address] 54289 Alpha 1 antitrypsin phenotyp ing [Interp]on 06-17-2024 Mkozl-6-Kprzmthwbja Phenotype MM Normal [facility] Comment on above: Result Comment: NOTE A single M isoform is detected. In the context of a normal ufshd-3-euscbvpfxdb concentration, this is consistent with an MM phenotype. ADDITIONAL INFORMATION Method: Isoelectric Focusing, This assay identifies the phenotype of the circulating tcnny-4-odcxxaqbjzz (A1A) protein. If the patient is on replacement therapy or has been recently transfused, the phenotype will detect patient and replacement or transfused plasma A1A protein. This test also cannot detect a null allele which could be responsible for an A1A deficiency. Performed By: #### 2 6449-9, 26215-9, HA1C, IMGB, 08321-5, CBC, THYR, 6771-0, 2132-03 ####[facility] ([id number])[address] [place] [address]#### 18553-4 ####[facility] ([id number])[address] [place] [address] 90752 Vuhxa-5-Fviamlqiuws, S 180 mg/dL Normal 100 - 190 [facility] Comment on above: Result Comment: NOTE ADDITIONAL INFORMATION Method: Nephelometry Test Performed by: [facility] [address] [place] [address] Therapeutic Recreation Assistant: Arabella Trejo Ph.D.; CLIA# [id number] Performed By: #### 2 6449-9, 99385-6, HA1C, IMGB, 12957-0, CBC, THYR, 6771-0, 2132-03 ####[facility] ([id number])[address] [place] [address], [address] [address]#### 68779-9 ####[facility] ([id number])[address] [place] [address] 80239 B. burgdorferi IgG+IgM Qn (S )on 06-17-2024 [...] weeks later. Performed By: #### 2 6449-9, 67163-9, HA1C, IMGB, 16524-2, CBC, THYR, 6771-0, 2132-03 ####[facility] ([id number])[address] [place] [address], [address] [place] [address]#### 13986-8 ####[facility] ([id number])[address] [place] [address] 64344 COMPLETE BLOOD COUNTon 06-17 Erythrocyte distribution width (RBC) [Ratio] 16.2 % High 11.5-15.0 [facility] Comment on above: Performed By: #### 2 6449-9, 88657-9, HA1C, IMGB, 93679-0, CBC, THYR, 6771-0, 2132-03 #### [facility] ([id number]) [address] [place] [address], [address] [place] [address] #### 83295-3 #### [facility] ([id number]) [address] [place] [address] 56660 Hematocrit (Bld) [Volume fraction] 41.8 % Normal 35-47 [facility] Comment on above: Performed By: #### 2 6449-9, 75335-3, HA1C, IMGB, 89949-9, CBC, THYR, 6771-0, 2132-03 #### [facility] ([id number]) [address] [place] [address], [address] [place] [address] #### 36475-4 #### [facility] ([id number]) [address] [place] [address] 34978 Hemoglobin (Bld) [Mass/Vol] 13.2 g/dL Normal 11.7-15.5 [facility] Comment on above: Performed By: #### 2 6449-9, 83676-1, HA1C, IMGB, 36477-3, CBC, THYR, 6771-0, 2132-03 #### [facility] ([id number]) [address], [address] [place] [address] #### 47199-4 #### [facility] ([id number]) [address] [place] [address] 52847 MCH (RBC) [Entitic mass] 24.2 pg Low 27-34 [facility] Comment on above: Performed By: #### 2 6449-9, 49706-0, HA1C, IMGB, 10529-3, CBC, THYR, 6771-0, 2132-03 #### [facility] ([id number]) [address], [address] [place] [address] #### 65267-4 #### [facility] ([id number]) [address] [place] [address] 94243 MCHC (RBC) [Mass/Vol] 31.6 g/dL Low 32-36 [facility] Comment on above: Performed By: #### 2 6449-9, 84853-8, HA1C, IMGB, 12765-4, CBC, THYR, 6771-0, 2132-03 #### [facility] ([id number]) [address], [address] [place] [address] #### 93449-0 #### [facility] ([id number]) [address] [place] [address] 53752 MCV (RBC) [Entitic vol] 77 fL Low 80-100 [facility] Comment on above: Performed By: #### 2 6449-9, 18043-4, HA1C, IMGB, 76389-9, CBC, THYR, 6771-0, 2132-03 #### [facility] ([id number]) [address], [address] [place] [address] #### 93009-8 #### [facility] ([id number]) [address] [place] [address] 72426 Platelet mean volume (Bld) [Entitic vol] 8.4 fL Normal 7-12 [facility] Comment on above: Performed By: #### 2 6449-9, 12440-1, HA1C, IMGB, 42454-9, CBC, THYR, 6771-0, 2132-03 #### [facility] ([id number]) [address], [address] [place] [address] #### 91907-4 #### [facility] ([id number]) [address] [place] [address] 44046 Platelets (Bld) [#/Vol] 460 10*3/uL High 150-450 [facility] Comment on above: Performed By: #### 2 6449-9, 69735-2, HA1C, IMGB, 34226-6, CBC, THYR, 6771-0, 2132-03 #### [facility] ([id number]) [address] [facility], [address] [place] [address] #### 44794-0 #### [facility] ([id number]) [address] [place] [address] 51532 RBC COUNT 5.45 X10E12/L High 3.80-5.20 [facility] Comment on above: Performed By: #### 2 6449-9, 84061-3, HA1C, IMGB, 33633-9, CBC, THYR, 6771-0, 2132-03 #### [facility] ([id number]) [address] [facility], [address] [place] [address] #### 38886-1 #### [facility] ([id number]) [address] [place] [address] 46079 WBC (Bld) [#/Vol] 12.1 10*3/uL High 4.0-11.0 [facility] Comment on above: Performed By: #### 2 6449-9, 87968-4, HA1C, IMGB, 30070-0, CBC, THYR, 6771-0, 2132-03 #### [facility] ([id number]) [address], [address] [place] [address] #### 55561-2 #### [facility] ([id number]) [address] [place] [address] EOSINOPHIL, TOTALon 06-17-20 24 Eosinophils (Bld) [#/Vol] 0.2 10*3/uL Normal 0.0-0.4 [facility] Comment on above: Performed By: #### 2 6449-9, 67308-8, HA1C, IMGB, 71870-3, CBC, THYR, 6771-0, 2132-03 #### [facility] ([id number]) [address] [facility], [address] [place] [address] #### 96191-6 #### [facility] ([id number]) [address] [place] [address] 6[address] HGB A1C (GLYCO-HGB)on 2023 Glucose [Mass/Vol] 169 mg/dL Normal [facility] Comment on above: Performed By: #### 2 6449-9, 35939-5, HA1C, IMGB, 15848-1, CBC, THYR, 6771-0, 2132-03 #### [facility] ([id number]) [address], [address] [place] [address] #### 18498-3 #### [facility] ([id number]) [address] [place] [address] 06925 HbA1c (Bld) [Mass fraction] 7.5 % High [...] are affected. Performed By: #### 2 6449-9, 70416-5, HA1C, IMGB, 35167-0, CBC, THYR, 6771-0, 2132-03 #### [facility] ([id number]) [address], [address] [place] [address] #### 70597-4 #### [facility] ([id number]) [address] [place] [address] 19597 IMMUNOGLOBULINSon 06-17-2024 IgA [Mass/Vol] 181 mg/dL Normal 68-378 [facility] Comment on above: Performed By: #### 2 6449-9, 53422-6, HA1C, IMGB, 55914-3, CBC, THYR, 6771-0, 2132-03 #### [facility] ([id number]) [address] [place] [address], [address] [place] [address] #### 03331-4 #### [facility] ([id number]) [address] [place] [address] 17771 IgG [Mass/Vol] 672 mg/dL Normal 635-1741 [facility] Comment on above: Performed By: #### 2 6449-9, 23437-3, HA1C, IMGB, 49809-5, CBC, THYR, 6771-0, 2132-03 #### [facility] ([id number]) [address] [place] [address], [address] [place] [address] #### 13615-9 #### [facility] ([id number]) [address] [place] [address]61 IgM [Mass/Vol] 165 mg/dL Normal 45-281 [facility] Comment on above: Performed By: #### 2 6449-9, 67060-4, HA1C, IMGB, 38354-6, CBC, THYR, 6771-0, 2132-03 #### [facility] ([id number]) [address], [address] [place] [address] #### 38130-7 #### [facility] ([id number]) [address] [place] [address] 48592 Nuclear Ab IA Ql (S)on 06-17 RODRIGO Screen w/reflex Negative Normal NEG [facility] Comment on above: Result Comment: Testing performed using multiplex flow immunoassay. Eleven different antigens associated with systemic autoimmune diseases (dsDNA,Sm,Sm/[employer]ER,SPOR[employer] B[employer] SERVER,Chromatin, SSA,SSB,Maria Guadalupe-1,Scl70,Ribo P,Centromere B) are included in this screening test. Performed By: #### 2 6449-9, 25426-7, HA1C, IMGB, 70842-4, CBC, THYR, 6771-0, 2132-03 ####[facility] ([id number])[address], [address] [place] [address]#### [id number] ####[facility] ([id number])[address] [place] [address] RESPIRATORY PANELon 06-17-20 24 ALTERNARIA ALTERNATA <0.10 Normal <0.10 [facility] Comment on above: Result Comment: Clas s 0: Normal Performed By: #### R AP ####[facility] ([id number])[address], [address] [place] [address] ASPERGILLUS FUMIGATUS <0.10 Normal <0.10 [facility] Comment on above: Result Comment: Clas s 0: Normal Performed By: #### R AP ####[facility] ([id number])[address], [address] [place] [address] BERMUDA GRASS <0.10 Normal <0.10 [facility] Comment on above: Result Comment: Clas s 0: Normal Performed By: #### R AP ####[facility] ([id number])[address], [address] [address] BOX ELDER <0.10 Normal <0.10 [facility] Comment on above: Result Comment: Clas s 0: Normal Performed By: #### R AP ####[facility] ([id number])[address], [address] [address] CAT DANDER <0.10 Normal <0.10 [facility] Comment on above: Result Comment: Clas s 0: Normal Performed By: #### R AP ####[facility] ([id number])[address], [address] [address] CLADOSPORIUM HERB <0.10 Normal <0.10 [facility] Comment on above: Result Comment: Clas s 0: Normal Performed By: #### R AP ####[facility] ([id number])[address], [address] [address] COCKLEBUR <0.10 Normal <0.10 [facility] Comment on above: Result Comment: Clas s 0: Normal Performed By: #### R AP ####[facility] ([id number])[address], [address] [address] COCKROACH 0.14 kU/L High <0.10 [facility] Comment on above: Result Comment: Clas s 0/1: Low level of Allergy, ongoing sensitization Performed By: #### R AP ####[facility] ([id number])[address], [address] [address] COMMON PIGWEED <0.10 Normal <0.10 [facility] Comment on above: Result Comment: Clas s 0: Normal Performed By: #### R AP ####[facility] ([id number])[address], [address], [place] [address] COMMON RAGWEED <0.10 Normal <0.10 [facility] Comment on above: Result Comment: Clas s 0: Normal Performed By: #### R AP ####[facility] ([id number])[address], [address], [place] [address] COMMON SILVER BIRCH <0.10 Normal <0.10 [facility] Comment on above: Result Comment: Clas s 0: Normal Performed By: #### R AP ####[facility] ([id number])[address], [address], [place] [address] COTTONWOOD <0.10 Normal <0.10 [facility] Comment on above: Result Comment: Clas s 0: Normal Performed By: #### R AP ####[facility] ([id number])[address], [address], [place] [address] DERMATOPH FARINAE <0.10 Normal <0.10 [facility] Comment on above: Result Comment: Clas s 0: Normal Performed By: #### R AP ####[facility] ([id number])[address], [address], [place] [address] DERMATOPH PTERONYSS <0.10 Normal <0.10 [facility] Comment on above: Result Comment: Clas s 0: Normal Performed By: #### R AP ####[facility] ([id number])[address], [address], [place] [address] DOG DANDER <0.10 Normal <0.10 [facility] Comment on above: Result Comment: Clas s 0: Normal Performed By: #### R AP ####[facility] ([id number])[address], [address], [place] [address] ELM <0.10 Normal <0.10 [facility] Comment on above: Result Comment: Clas s 0: Normal Performed By: #### R AP ####[facility] ([id number])[address], [address], [place] [address] GOOSEFOOT LITTLE QTR <0.10 Normal <0.10 [facility] Comment on above: Result Comment: Clas s 0: Normal Performed By: #### R AP ####[facility] ([id number])[address], [address] [address] IGE 31 IU/mL Normal 0-165 [facility] Comment on above: Performed By: #### R AP ####[facility] ([id number])[address], [address], [place] [address] RUSS GRASS <0.10 Normal <0.10 [facility] Comment on above: Result Comment: Clas s 0: Normal Performed By: #### R AP ####[facility] ([id number])[address], [address], [place] [address] MAPLE LEAF SYCAMORE <0.10 Normal <0.10 [facility] Comment on above: Result Comment: Clas s 0: Normal Performed By: #### R AP ####[facility] ([id number])[address], [address], [place] [address] [place] GURPREET <0.10 Normal <0.10 [facility] Comment on above: Result Comment: Clas s 0: Normal Performed By: #### R AP ####[facility] ([id number])[address], [address], [place] [address] MOUNTAIN JUNIPER <0.10 Normal <0.10 [facility] Comment on above: Result Comment: Clas s 0: Normal Performed By: #### R AP ####[facility] ([id number])[address], [address], [place] [address] MOUSE URINE PROTEINS <0.10 Normal <0.10 [facility] Comment on above: Result Comment: Clas s 0: Normal Performed By: #### R AP ####[facility] ([id number])[address], [address], [place] [address] MUGWORT <0.10 Normal <0.10 [facility] Comment on above: Result Comment: Clas s 0: Normal Performed By: #### R AP ####[facility] ([id number])[address], [address], [place] [address] MULBERRY TREE <0.10 Normal <0.10 [facility] Comment on above: Result Comment: Clas s 0: Normal Performed By: #### R AP ####[facility] ([id number])[address], [address], [place] [address] NETTLE <0.10 Normal <0.10 [facility] Comment on above: Result Comment: Clas s 0: Normal Performed By: #### R AP ####[facility] ([id number])[address], [address], [place] [address] OAK <0.10 Normal <0.10 [facility] Comment on above: Result Comment: Clas s 0: Normal Performed By: #### R AP ####[facility] ([id number])[address], [address], [place] [address] PECAN HICKORY TREE <0.10 Normal <0.10 [facility] Comment on above: Result Comment: Clas s 0: Normal Performed By: #### R AP ####[facility] ([id number])[address], [address], [place] [address] PENICILLIUM CHRYSOGENUM <0.10 Normal <0.10 [facility] Comment on above: Result Comment: Clas s 0: Normal Performed By: #### R AP ####[facility] ([id number])[address], [address] [address] ROUGH MARSHELDER <0.10 Normal <0.10 [facility] Comment on above: Result Comment: Clas s 0: Normal Performed By: #### R AP ####[facility] ([id number])[address], [address] [address] SALTWORT RICK THISTLE <0.10 Normal <0.10 [facility] Comment on above: Result Comment: Clas s 0: Normal Performed By: #### R AP ####[facility] ([id number])[address], [address] [address] SHEEP SORREL <0.10 Normal <0.10 [facility] Comment on above: Result Comment: Clas s 0: Normal Performed By: #### R AP ####[facility] ([id number])[address], [address] [address] ANAI <0.10 Normal <0.10 [facility] Comment on above: Result Comment: Clas s 0: Normal Performed By: #### R AP ####[facility] ([id number])[address], [address] [address] WALNUT TREE POLLEN <0.10 Normal <0.10 [facility] Comment on above: Result Comment: Clas s 0: Normal Performed By: #### R AP ####[facility] ([id number])[address], [address] [address] WHITE LAZARO <0.10 Normal <0.10 [facility] Comment on above: Result Comment: Clas s 0: Normal Performed By: #### R AP ####[facility] ([id number])[address], [address] [address] THYROID PROFILEon 06-17-2024 Free T4 [Mass/Vol] 1.06 ng/dL Normal 0.61-1.60 [facility] Comment on above: Performed By: #### 2 6449-9, 72373-9, HA1C, IMGB, 18226-2, CBC, THYR, 6771-0, 2132-03 #### [facility] ([id number]) [address], [address] [place] [address] #### 05186-3 #### [facility] ([id number]) [address] [place] [address] TSH 4.33 uIU/mL Normal 0.49-4.67 [facility] Comment on above: Performed By: #### 2 6449-9, 86821-5, HA1C, IMGB, 46050-5, CBC, THYR, 6771-0, 2132-03 #### [facility] ([id number]) [address] [facility], [address] [place] [address] #### 24018-3 #### [facility] ([id number]) [address] [place] [address] VITAMIN B12on 06-17-2024 Cobalamin (Vitamin B12) [Mass/Vol] 460 pg/mL Normal 180-914 [facility] Comment on above: Performed By: #### 2 6449-9, 08642-0, HA1C, IMGB, 64921-1, CBC, THYR, 6771-0, 2132-03 ####[facility] ([id number])[address] [facility], [address] [address]#### 39056-8 ####[facility] ([id number])[address] [place] [address] HERPES SIMPLEX VIRAL PCRon 1 08-12-2023 HERPES SIMPLEX VIRAL PCR SPECIMEN SOURCE VAGINAL LESION HERPES SIMPLEX 1 PCR Negative (qualifier value) HSV 1 DNA Not Detected HERPES SIMPLEX 2 PCR Negative (qualifier value) HSV 2 DNA Not Detected Normal [facility] Comment on above: Performed By: #### H SV12 #### [facility] ([id number]) [address], [address] [place] [address] MAMM DIAGNOSTIC BILATERAL W CADon 03-05-2024 MAMM [...] [facility] CONTon 02-27- 024 MR BRAIN W WO CONT MR [...] clear. Temporal bones are clear. IMPRESSION: * Sncg-sr-dfwybqop burden of deep white matter signal changes, similar to prior, and suggestive of a demyelinating process. No acutely enhancing lesions. 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 MR orbits is reported separately. Approved by Lucila Tapia MD on 02/28/2024 8:31 AM I, Aneesh Mendez have personally reviewed [...] Blair Motley DO on 02/28/2024 11:45 AM IAneesh have personally reviewed the image(s) and agree [...] [facility] BRA[facility] CONTon 4 CT BRAIN WO CONT CT BRAIN WO [...] 2023 Pancreatic Elastase >800 Normal >=100 [facility] Comment on above: Result Comment: (NOT E) REFERENCE INTERVAL: Pancreatic Elastase Fecal by Immunoassay Less than 100 ug/g............Severe insufficiency 100 - 199 ug/g................Moderate insufficiency 200 ug/g or greater...........Normal INTERPRETIVE INFORMATION: Pancreatic Elastase Fecal by Immunoassay Reference intervals do not apply for infants less than one month old. Performed By: [employer] [address] [place] [address] Funeral Home Makeup Artist: Landon Winters MD, PhD CLIA Number: [id number] Performed By: #### A PEF #### [employer] [address] [place] [address] Therapeutic Recreation Assistant: Casey Howard MD CBC AND AUTO DIFFon 01-03-20 24 ABSOLUTE BASOPHIL 0.1 X10E9/L Normal 0.0-0.2 [facility] Comment on above: Performed By: #### 2 6449-9, 31841-8, HA1C, IMGB, 30801-8, CBC, THYR, 6771-0, 2132-03 #### [facility] ([id number]) [address] [place] [address], [address] [place] [address] #### 36441-2 #### [facility] ([id number]) [address] [place] [address] ABSOLUTE NEUTROPHIL 5.8 X10E9/L Normal 1.5-6.6 [facility] Comment on above: Performed By: #### 2 6449-9, 98528-0, HA1C, IMGB, 83983-5, CBC, THYR, 6771-0, 2132-03 #### [facility] ([id number]) [address] [place] [address], [address] [place] [address] #### 37099-3 #### [facility] ([id number]) [address] [place] [address] Basophils/100 WBC (Bld) 0.9 % Normal [facility] Comment on above: Performed By: #### 2 6449-9, 81460-3, HA1C, IMGB, 85168-0, CBC, THYR, 6771-0, 2132-03 #### [facility] ([id number]) [address] [place] [address], [address] [place] [address] #### 45129-8 #### [facility] ([id number]) [address] [place] [address] Eosinophils (Bld) [#/Vol] 0.3 10*3/uL Normal 0.0-0.4 [facility] Comment on above: Performed By: #### 2 6449-9, 60267-5, HA1C, IMGB, 71620-2, CBC, THYR, 6771-0, 2132-03 #### [facility] ([id number]) [address], [address] [place] [address] #### 59058-8 #### [facility] ([id number]) [address] [place] [address] Eosinophils/100 WBC (Bld) 3.5 % Normal [facility] Comment on above: Performed By: #### 2 6449-9, 44526-5, HA1C, IMGB, 74047-3, CBC, THYR, 6771-0, 2132-03 #### [facility] ([id number]) [address], [address] [place] [address] #### 53581-5 #### [facility] ([id number]) [address] [place] [address] Erythrocyte distribution width (RBC) [Ratio] 17.0 % High 11.5-15.0 [facility] Comment on above: Performed By: #### 2 6449-9, 51210-5, HA1C, IMGB, 65954-3, CBC, THYR, 6771-0, 2132-03 #### [facility] ([id number]) [address], [address] [place] [address] #### 62025-3 #### [facility] ([id number]) [address] [place] [address] Hematocrit (Bld) [Volume fraction] 40.0 % Normal 35-47 [facility] Comment on above: Performed By: #### 2 6449-9, 95587-9, HA1C, IMGB, 29102-7, CBC, THYR, 6771-0, 2132-03 #### [facility] ([id number]) [address], [address] [place] [address] #### 34249-7 #### [facility] ([id number]) [address] [place] [address] Hemoglobin (Bld) [Mass/Vol] 13.1 g/dL Normal 11.7-15.5 [facility] Comment on above: Performed By: #### 2 6449-9, 97285-1, HA1C, IMGB, 55292-5, CBC, THYR, 6771-0, 2132-03 #### [facility] ([id number]) [address] [facility], [address] [place] [address] #### 02820-4 #### [facility] ([id number]) [address] [place] [address] Lymphocytes (Bld) [#/Vol] 1.6 10*3/uL Normal 1.0-3.5 [facility] Comment on above: Performed By: #### 2 6449-9, 16675-7, HA1C, IMGB, 40859-7, CBC, THYR, 6771-0, 2132-03 #### [facility] ([id number]) [address] [facility], [address] [place] [address] #### 40654-3 #### [facility] ([id number]) [address] [place] [address] Lymphocytes/100 WBC (Bld) 19.3 % Normal [facility] Comment on above: Performed By: #### 2 6449-9, 89168-1, HA1C, IMGB, 37234-2, CBC, THYR, 6771-0, 2132-03 #### [facility] ([id number]) [address] [facility], [address] [place] [address] #### 45858-4 #### [facility] ([id number]) [address] [place] [address] MCH (RBC) [Entitic mass] 26.3 pg Low 27-34 [facility] Comment on above: Performed By: #### 2 6449-9, 58331-1, HA1C, IMGB, 34080-2, CBC, THYR, 6771-0, 2132-03 #### [facility] ([id number]) [address], [address] [place] [address] #### 64951-8 #### [facility] ([id number]) [address] [place] [address] MCHC (RBC) [Mass/Vol] 32.8 g/dL Normal 32-36 [facility] Comment on above: Performed By: #### 2 6449-9, 08859-2, HA1C, IMGB, 01747-8, CBC, THYR, 6771-0, 2132-03 #### [facility] ([id number]) [address] [facility], [address] [place] [address] #### 96326-3 #### [facility] ([id number]) [address] [place] [address] MCV (RBC) [Entitic vol] 80 fL Normal 80-100 [facility] Comment on above: Performed By: #### 2 6449-9, 22860-1, HA1C, IMGB, 51871-8, CBC, THYR, 6771-0, 2132-03 #### [facility] ([id number]) [address], [address] [place] [address] #### 07907-0 #### [facility] ([id number]) [address] [place] [address] Monocytes (Bld) [#/Vol] 0.5 10*3/uL Normal 0-0.9 [facility] Comment on above: Performed By: #### 2 6449-9, 31678-5, HA1C, IMGB, 73445-3, CBC, THYR, 6771-0, 2132-03 #### [facility] ([id number]) [address], [address] [place] [address] #### 34494-7 #### [facility] ([id number]) [address] [place] [address] Monocytes/100 WBC (Bld) 5.7 % Normal [facility] Comment on above: Performed By: #### 2 6449-9, 01996-5, HA1C, IMGB, 69105-7, CBC, THYR, 6771-0, 2132-03 #### [facility] ([id number]) [address], [address] [place] [address] #### 35531-3 #### [facility] ([id number]) [address] [place] [address] Neutrophils/100 WBC (Bld) 70.6 % Normal [facility] Comment on above: Performed By: #### 2 6449-9, 91752-6, HA1C, IMGB, 20350-7, CBC, THYR, 6771-0, 2132-03 #### [facility] ([id number]) [address], [address] [place] [address] #### 80776-7 #### [facility] ([id number]) [address] [place] [address] 28007 Platelet mean volume (Bld) [Entitic vol] 8.1 fL Normal 7-12 [facility] Comment on above: Performed By: #### 2 6449-9, 68551-4, HA1C, IMGB, 05842-6, CBC, THYR, 6771-0, 2132-03 #### [facility] ([id number]) [address], [address] [place] [address] #### 37011-9 #### [facility] ([id number]) [address] [place] [address] Platelets (Bld) [#/Vol] 355 10*3/uL Normal 150-450 [facility] Comment on above: Performed By: #### 2 6449-9, 01953-5, HA1C, IMGB, 57897-6, CBC, THYR, 6771-0, 2132-03 #### [facility] ([id number]) [address], [address] [place] [address] #### 01308-1 #### [facility] ([id number]) [address] [place] [address]15 RBC COUNT 5.00 X10E12/L Normal 3.80-5.20 [facility] Comment on above: Performed By: #### 2 6449-9, 87209-9, HA1C, IMGB, 50732-0, CBC, THYR, 6771-0, 2132-03 #### [facility] ([id number]) [address], [address] [place] [address] #### 80538-0 #### [facility] ([id number]) [address] [place] [address]459 WBC (Bld) [#/Vol] 8.3 10*3/uL Normal 4.0-11.0 [facility] Comment on above: Performed By: #### 2 6449-9, 65878-1, HA1C, IMGB, 56994-6, CBC, THYR, 6771-0, 2132-03 #### [facility] ([id number]) [address], [address] [place] [address] #### 43914-1 #### [facility] ([id number]) [address] [place] [address] COMPREHENSIVE METABOLIC PANE Toribio 01-03-2024 Albumin [Mass/Vol] 4.3 g/dL Normal 3.2-5.3 [facility] Comment on above: Performed By: #### 2 6449-9, 17911-6, HA1C, IMGB, 53333-5, CBC, THYR, 6771-0, 2132-03 #### [facility] ([id number]) [address], [address] [place] [address] #### 65162-5 #### [facility] ([id number]) [address] [place] [address]75 ALP [Catalytic activity/Vol] 77 U/L Normal 39-130 [facility] Comment on above: Performed By: #### 2 6449-9, 89032-2, HA1C, IMGB, 72379-8, CBC, THYR, 6771-0, 2132-03 #### [facility] ([id number]) [address], [address] [place] [address] #### 31941-2 #### [facility] ([id number]) [address] [place] [address]019 ALT [Catalytic activity/Vol] 33 U/L High 0-31 [facility] Comment on above: Performed By: #### 2 6449-9, 58674-3, HA1C, IMGB, 68237-2, CBC, THYR, 6771-0, 2132-03 #### [facility] ([id number]) [address], [address] [place] [address] #### 84651-1 #### [facility] ([id number]) [address] [place] [address]28 Anion gap [Moles/Vol] 12 mmol/L Normal 5-15 [facility] Comment on above: Performed By: #### 2 6449-9, 93485-9, HA1C, IMGB, 87243-9, CBC, THYR, 6771-0, 2132-03 #### [facility] ([id number]) [address], [address] [place] [address] #### 39254-5 #### [facility] ([id number]) [address] [place] [address]1502 AST [Catalytic activity/Vol] 24 U/L Normal 0-41 [facility] Comment on above: Performed By: #### 2 6449-9, 27558-3, HA1C, IMGB, 95917-0, CBC, THYR, 6771-0, 2132-03 #### [facility] ([id number]) [address], [address] [place] [address] #### 38204-3 #### [facility] ([id number]) [address] [place] [address]84 Bilirubin [Mass/Vol] 0.3 mg/dL Normal 0.3-1.2 [facility] Comment on above: Performed By: #### 2 6449-9, 17495-2, HA1C, IMGB, 26458-4, CBC, THYR, 6771-0, 2132-03 #### [facility] ([id number]) [address], [address] [place] [address] #### 70677-4 #### [facility] ([id number]) [address] [place] [address]95 Calcium [Mass/Vol] 8.8 mg/dL Normal 8.5-10.5 [facility] Comment on above: Performed By: #### 2 6449-9, 91001-8, HA1C, IMGB, 10656-2, CBC, THYR, 6771-0, 2132-03 #### [facility] ([id number]) [address], [address] [place] [address] #### 55789-7 #### [facility] ([id number]) [address] [place] [address] Chloride [Moles/Vol] 101 mmol/L Normal 98-109 [facility] Comment on above: Performed By: #### 2 6449-9, 16057-2, HA1C, IMGB, 22519-2, CBC, THYR, 6771-0, 2132-03 #### [facility] ([id number]) [address], [address] [place] [address] #### 98709-5 #### [facility] ([id number]) [address] [place] [address] 10392 CO2 [Moles/Vol] 22 mmol/L Normal 22-32 [facility] Comment on above: Performed By: #### 2 6449-9, 88428-1, HA1C, IMGB, 84879-5, CBC, THYR, 6771-0, 2132-03 #### [facility] ([id number]) [address], [address] [place] [address] #### 43919-6 #### [facility] ([id number]) [address] [place] [address] 68008 Creatinine [Mass/Vol] 0.67 mg/dL Normal 0.40-1.00 [facility] Comment on above: Result Comment: METH OD TRACEABLE TO IDMS STANDARD Performed By: #### 2 6449-9, 42059-4, HA1C, IMGB, 60951-0, CBC, THYR, 6771-0, 2132-03 #### [facility] ([id number]) [address], [address] [place] [address] #### 68517-5 #### [facility] ([id number]) [address] [place] [address] 10482 eGFR (CKD-EPI) NON-RACE DEPENDENT >90 Normal >59 [facility] Comment on above: Result Comment: Reported eGFR is based on the CKD-EPI 2020 equation that does not use a race coefficient. Performed By: #### 2 6449-9, 36943-9, HA1C, IMGB, 02968-1, CBC, THYR, 6771-0, 2132-03 #### [facility] ([id number]) [address], [address] [place] [address] #### 73162-1 #### [facility] ([id number]) [address] [place] [address] 20926 Glucose [Mass/Vol] 165 mg/dL High 65-99 [facility] Comment on above: Performed By: #### 2 6449-9, 52854-7, HA1C, IMGB, 47769-3, CBC, THYR, 6771-0, 2132-03 #### [facility] ([id number]) [address] [facility] [address] [place] [address] #### 10010-7 #### [facility] ([id number]) [address] [place] [address] 54972 Potassium [Moles/Vol] 4.0 mmol/L Normal 3.5-5.0 [facility] Comment on above: Performed By: #### 2 6449-9, 16962-6, HA1C, IMGB, 42722-6, CBC, THYR, 6771-0, 2132-03 #### [facility] ([id number]) [address] [facility] [address] [place] [address] #### 79334-9 #### [facility] ([id number]) [address] [place] [address] 92659 Protein [Mass/Vol] 7.8 g/dL Normal 6.0-8.0 [facility] Comment on above: Performed By: #### 2 6449-9, 39207-0, HA1C, IMGB, 63350-9, CBC, THYR, 6771-0, 2132-03 #### [facility] ([id number]) [address] [place] [address], [address] [place] [address] #### 55307-1 #### [facility] ([id number]) [address] [place] [address] 67497 Sodium [Moles/Vol] 135 mmol/L Normal 134-146 [facility] Comment on above: Performed By: #### 2 6449-9, 81325-3, HA1C, IMGB, 13146-1, CBC, THYR, 6771-0, 9 #### [facility] ([id number]) [address] [facility], [address] [place] [address] #### 30275-1 #### [facility] ([id number]) [address] [place] [address] 24481 Urea nitrogen [Mass/Vol] 14 mg/dL Normal 5-23 [facility] Comment on above: Performed By: #### 2 6449-9, 60016-7, HA1C, IMGB, 61955-1, CBC, THYR, 6771-0, 2132-03 #### [facility] ([id number]) [address] [place] [address], [address] [place] [address] #### 88560-6 #### [facility] ([id number]) [address] [place] [address] ABDOMEN AND PELVIS WO CON Ton [...] on above: Performed By: #### 2 6449-9, 60138-5, HA1C, IMGB, 54208-0, CBC, THYR, 6771-0, 2132-03 #### [facility] ([id number]) [address], [address] [place] [address] #### 44642-0 #### [facility] ([id number]) [address] [place] [address] 82157 URN MACROSCOPIC NURon 2023 BILIRUBIN JOURDAN Negative Normal NEG [facility] Comment on above: Performed By: #### 2 6449-9, 77580-9, HA1C, IMGB, 46914-2, CBC, THYR, 6771-0, 2132-03 #### [facility] ([id number]) [address], [address] [place] [address] #### 56108-3 #### [facility] ([id number]) [address] [place] [address] 90394 BLOOD/HGB JOURDAN Trace Abnormal NEG [facility] Comment on above: Performed By: #### 2 6449-9, 16290-6, HA1C, IMGB, 55671-9, CBC, THYR, 6771-0, 2132-03 #### [facility] ([id number]) [address] [facility], [address] [place] [address] #### 22299-8 #### [facility] ([id number]) [address] [place] [address] 02314 GLUCOSE JOURDAN Negative Normal NEG [facility] Comment on above: Performed By: #### 2 6449-9, 87226-7, HA1C, IMGB, 54820-8, CBC, THYR, 6771-0, 2132-03 #### [facility] ([id number]) [address] [facility], [address] [place] [address] #### 44134-8 #### [facility] ([id number]) [address] [place] [address] 11401 KETONES JOURDAN Negative Normal NEG [facility] Comment on above: Performed By: #### 2 6449-9, 29640-4, HA1C, IMGB, 89453-1, CBC, THYR, 6771-0, 2132-03 #### [facility] ([id number]) [address] [facility], [address] [place] [address] #### 03972-2 #### [facility] ([id number]) [address] [place] [address] 32799 LEUKOCYTE ESTERASE JOURDAN Negative Normal NEG [facility] Comment on above: Performed By: #### 2 6449-9, 48090-5, HA1C, IMGB, 96611-6, CBC, THYR, 6771-0, 2132-03 #### [facility] ([id number]) [address] [facility], [address] [place] [address] #### 94107-8 #### [facility] ([id number]) [address] [place] [address] 90069 NITRITE JOURDAN Negative Normal NEG [facility] Comment on above: Performed By: #### 2 6449-9, 05382-6, HA1C, IMGB, 72197-2, CBC, THYR, 6771-0, 2132-03 #### [facility] ([id number]) [address] [facility], [address] [place] [address] #### 03471-5 #### [facility] ([id number]) [address] [place] [address] 11942 PH JOURDAN 6.0 Normal 5.0-8.5 [facility] Comment on above: Performed By: #### 2 6449-9, 25461-7, HA1C, IMGB, 50311-8, CBC, THYR, 6771-0, 2132-03 #### [facility] ([id number]) [address] [facility], [address] [place] [address] #### 48525-6 #### [facility] ([id number]) [address] [place] [address] 81939 PROTEIN JOURDAN Negative Normal NEG [facility] Comment on above: Performed By: #### 2 6449-9, 79346-2, HA1C, IMGB, 77282-0, CBC, THYR, 6771-0, 2132-03 #### [facility] ([id number]) [address] [facility], [address] [place] [address] #### 84840-2 #### [facility] ([id number]) [address] [place] [address] 99857 SPECIFIC GRAVITY JOURDAN 1.025 Normal 1.003-1.035 [facility] Comment on above: Performed By: #### 2 6449-9, 35008-5, HA1C, IMGB, 57889-7, CBC, THYR, 6771-0, 2132-03 #### [facility] ([id number]) [address] [facility], [address] [place] [address] #### 97976-2 #### [facility] ([id number]) [address] [place] [address] 54811 UROBILINOGEN JOURDAN 0.2 eu/dL Normal <1.1 [facility] Comment on above: Performed By: #### 2 6449-9, 46224-9, HA1C, IMGB, 74298-3, CBC, THYR, 6771-0, 2132-9 #### [facility] ([id number]) [address], [address] [place] [address] #### 85396-8 #### [facility] ([id number]) [address] [facility], [place] [address] US ABDOMEN LIMITEDon 024 US ABDOMEN LIMITED EXAMINATION: RIGHT UPPER QUADRANT ULTRASOUND 01/02/2024 3:13 pm COMPARISON: None. HISTORY: ORDERING SYSTEM PROVIDED HISTORY: RUQ abdominal pain TECHNOLOGIST PROVIDED HISTORY: This procedure can be scheduled via [facility] [facility]. Specify organ?->LIVER Specify organ?->PANCREAS FINDINGS: LIVER: The [...] Ramos DO 01/02/24 Final result Normal [facility] US Abdomen limitedon 024 1. Cholecystectomy. 2. Prominent common bile duct measuring 9.7 mm. This likely reflects post cholecystectomy benign biliary ductal ectasia. [facility]PN RIS CONSOLIDATED EXAMINATION: RIGHT UPPER QUADRANT ULTRASOUND 01/02/2024 3:13 pm COMPARISON: None. HISTORY: ORDERING SYSTEM PROVIDED HISTORY: RUQ abdominal pain TECHNOLOGIST PROVIDED HISTORY: This procedure can be scheduled via [employer]. Specify organ?->LIVER Specify organ?->PANCREAS FINDINGS: LIVER: The liver demonstrates normal echogenicity without evidence of intrahepatic biliary ductal dilatation. Hepatopetal flow portal vein. BILIARY SYSTEM: Cholecystectomy Common bile duct is prominent measuring 9.7 mm. RIGHT KIDNEY: The right kidney is grossly unremarkable without evidence of hydronephrosis. PANCREAS: Visualized portions of the pancreas are unremarkable. OTHER: No evidence of right upper quadrant ascites. PN RIS CONSOLIDATED Alfonso Ramos, DO - 01/02/2024 EXAMINATION: RIGHT UPPER QUADRANT ULTRASOUND 01/02/2024 3:13 pm COMPARISON: None. HISTORY: ORDERING SYSTEM PROVIDED HISTORY: RUQ abdominal pain TECHNOLOGIST PROVIDED HISTORY: This procedure can be scheduled via [facility]. Specify organ?->LIVER Specify organ?->PANCREAS FINDINGS: LIVER: The [...] reflects post cholecystectomy benign biliary ductal ectasia. [facility] Radiology Study observation (narrative) [facility] US Abdomen limitedOrdered By : Alfonso Ramos on 01-02-2024 [facility] Work Phone: Celiac Disease Panelon 12-27 Gliadin Deam Pep IgG <0.4 Normal <7.[address] [facility] Comment on above: Result Comment: CELIAC INTERPRETATION <7.0 Negative 7.0-10.0 Equivocal >10.0 Positive units: U/mL Performed By: #### C PBILC, CDP, LIP #### [facility] [address] [place] [address] Therapeutic Recreation Assistant: Allison Zavaleta MD #### CELP #### [facility] [place] [address] [place] [address] Therapeutic Recreation Assistant: Zac Servin MD Gliadin Deam Pep IgA 1.1 U/mL Normal <7.[address] [facility] Comment on above: Result Comment: CELIAC INTERPRETATION <7.0 Negative 7.0-10.0 Equivocal >10.0 Positive units: U/mL Performed By: #### C PBILC, CDP, LIP #### [facility] [address] [place] [address] [place], [place] 2430183 Therapeutic Recreation Assistant: Allison Zavaleta MD #### CELP #### [address] [phone] Therapeutic Recreation Assistant: Zac Servin MD Tiss Transglutam IgA 0.4 U/mL Normal <7.[address] [facility] Comment on above: Result Comment: CELIAC INTERPRETATION <7.0 Negative 7.0-10.0 Equivocal >10.0 Positive units: U/mL Performed By: #### C PBILC, CDP, LIP #### [address] [place] [address] Therapeutic Recreation Assistant: Allison Zavaleta MD #### CELP #### [address] [id number] Therapeutic Recreation Assistant: Zac Servin MD Celiac Disease Panelon 12-26 IgA [Mass/Vol] 188 mg/dL Normal 70-400 [facility] Comment on above: Performed By: #### C PBILGino CDP, LIP #### [address] [place], [place] [id number] Therapeutic Recreation Assistant: Allison Zavaleta MD #### CELP #### [address] [id number] Therapeutic Recreation Assistant: Zac Servin MD CBC with Diffon 12-26-2023 Abs. Basophil 0.03 k/uL Normal 0.00-0.20 [facility] Comment on above: Performed By: #### C PBILC, CDP, LIP #### [address] [place] [address] Therapeutic Recreation Assistant: Allison Zavaleta MD #### CELP #### [address] [phone] Therapeutic Recreation Assistant: Zac Servin MD Abs.Imm.Granulocyte <0.03 Normal 0.00-0.30 [facility] Comment on above: Performed By: #### C PBILC, CDP, LIP #### [facility] [address] [place] [address] [place] [address] Therapeutic Recreation Assistant: Allison Zavaleta MD #### CELP #### [address] [phone] Therapeutic Recreation Assistant: Zac Servin MD Abs.Neutrophil (Seg) 4.18 k/uL Normal 1.50-8.[address] [facility] Comment on above: Performed By: #### C PBILC, CDP, LIP #### [address] [place] 7330083 Therapeutic Recreation Assistant: Allison Zavaleta MD #### CELP #### [place] [phone] Therapeutic Recreation Assistant: Zac Servin MD Basophils/100 WBC (Bld) 0 % Normal 0-2 [facility] Comment on above: Performed By: #### C PBILC, CDP, LIP #### [address] [place] 7330083 Therapeutic Recreation Assistant: Allison Zavaleta MD #### CELP #### [address] [phone] Therapeutic Recreation Assistant: Zac Servin MD Eosinophils (Bld) [#/Vol] 0.29 10*3/uL Normal 0.00-0.44 [facility] Comment on above: Performed By: #### C PBILC, CDP, LIP #### [address] [place] [address] Therapeutic Recreation Assistant: Allison Zavaleta MD #### CELP #### [address] [id number] Therapeutic Recreation Assistant: Zac Servin MD Eosinophils/100 WBC (Bld) 4 % Normal 1-4 [facility] Comment on above: Performed By: #### C PBILC, CDP, LIP #### [facility] [address] [place] [address] Therapeutic Recreation Assistant: Allison Zavaleta MD #### CELP #### [address] [phone] Therapeutic Recreation Assistant: Zac Servin MD Erythrocyte distribution width (RBC) [Ratio] 15.9 % High 11.8-14.4 [facility] Comment on above: Performed By: #### C PBILC, CDP, LIP #### [address] [place] [address] Therapeutic Recreation Assistant: Allison Zavaleta MD #### CELP #### [address] [phone] Therapeutic Recreation Assistant: Zac Servin MD Hematocrit (Bld) [Volume fraction] 43.5 % Normal 36.3-47.1 [facility] Comment on above: Performed By: #### C PBILC, CDP, LIP #### [address] [place] [address] Therapeutic Recreation Assistant: Allison Zavaleta MD #### CELP #### [address] [phone] Therapeutic Recreation Assistant: Zac Servin MD Hemoglobin (Bld) [Mass/Vol] 13.4 g/dL Normal 11.9-15.1 [facility] Comment on above: Performed By: #### C PBILC, CDP, LIP #### [facility] [address] [place] [address] [place] [address] Therapeutic Recreation Assistant: Allison Zavaleta MD #### CELP #### [address] [phone] Therapeutic Recreation Assistant: Zac Servin MD Immature granulocytes/100 WBC (Bld) 0 % Normal 0 [facility] Comment on above: Performed By: #### C PBILC, CDP, LIP #### [facility] [address] [place] [address] Dr[place] [phone] Therapeutic Recreation Assistant: Allison Zavaleta MD #### CELP #### [address] [id number] Therapeutic Recreation Assistant: Zac Servin MD Lymphocytes (Bld) [#/Vol] 1.87 10*3/uL Normal 1.10-3.70 [facility] Comment on above: Performed By: #### C PBILC, CDP, LIP #### [address] [place] [phone] Therapeutic Recreation Assistant: Allison Zavaleta MD #### CELP #### [address] [phone] Therapeutic Recreation Assistant: Zac Servin MD Lymphocytes/100 WBC (Bld) 27 % Normal 24-43 [facility] Comment on above: Performed By: #### C PBILC, CDP, LIP #### [address] [place] [phone] Therapeutic Recreation Assistant: Allison Zavaleta MD #### CELP #### [address] [phone] Therapeutic Recreation Assistant: Zac Servin MD MCH (RBC) [Entitic mass] 25.8 pg Normal 25.2-33.5 [facility] Comment on above: Performed By: #### C PBILC, CDP, LIP #### [address] [place] [phone] Therapeutic Recreation Assistant: Allison Zavaleta MD #### CELP #### [address] [phone] Therapeutic Recreation Assistant: Zac Servin MD MCHC (RBC) [Mass/Vol] 30.8 g/dL Normal 28.4-34.8 [facility] Comment on above: Performed By: #### C PBILC, CDP, LIP #### [address] [place] [phone] Therapeutic Recreation Assistant: Allison Zavaleta MD #### CELP #### [address] [phone] Therapeutic Recreation Assistant: Zac Servin MD MCV (RBC) [Entitic vol] 83.8 fL Normal 82.6-102.9 [facility] Comment on above: Performed By: #### C PBILC, CDP, LIP #### [address] [place] [phone] Therapeutic Recreation Assistant: Allison Zavaleta MD #### CELP #### [place] [address] Therapeutic Recreation Assistant: Zac Servin MD Monocytes (Bld) [#/Vol] 0.51 10*3/uL Normal 0.10-1.20 [facility] Comment on above: Performed By: #### C PBILC, CDP, LIP #### [address] [place] [phone] Therapeutic Recreation Assistant: Allison Zavaleta MD #### CELP #### [address] [address] Therapeutic Recreation Assistant: Zac Servin MD Monocytes/100 WBC (Bld) 7 % Normal 3-12 [facility] Comment on above: Performed By: #### C PBILC, CDP, LIP #### [address] [place] [phone] Therapeutic Recreation Assistant: Allison Zavaleta MD #### CELP #### [address] [phone] Therapeutic Recreation Assistant: Zac Servin MD Neutrophil (Seg) 62 % Normal 36-65 [facility] Comment on above: Performed By: #### C PBILC, CDP, LIP #### [facility] [address] [place], [place] 2036583 Therapeutic Recreation Assistant: Allison Zavaleta MD #### CELP #### [address] [address] Therapeutic Recreation Assistant: Zac Servin MD NRBC Automated 0.0 per 100 WBC Normal 0.0 [facility] Comment on above: Performed By: #### C PBILC, CDP, LIP #### [facility] [address] [place], [place] 4842683 Therapeutic Recreation Assistant: Allison Zavaleta MD #### CELP #### [address] [address] Therapeutic Recreation Assistant: Zac Servin MD Platelet mean volume (Bld) [Entitic vol] 9.8 fL Normal 8.1-13.5 [facility] Comment on above: Performed By: #### C PBILC, CDP, LIP #### [facility] [address] [place], [place] 6280183 Therapeutic Recreation Assistant: Allison Zavaleta MD #### CELP #### [address] [address] Therapeutic Recreation Assistant: Zac Servin MD Platelets (Bld) [#/Vol] 341 10*3/uL Normal 138-453 [facility] Comment on above: Performed By: #### C PBILC, CDP, LIP #### [facility] [address] [place], [place] [phone] Therapeutic Recreation Assistant: Allison Zavaleta MD #### CELP #### [address] [address] Therapeutic Recreation Assistant: Zac Servin MD RBC (Bld) [#/Vol] 5.19 10*6/uL High 3.95-5.11 [facility] Comment on above: Performed By: #### C PBILC, CDP, LIP #### [facility] [address] [place] [address] Dr[place], [place] [phone] Therapeutic Recreation Assistant: Allison Zavaleta MD #### CELP #### [address] [address] Therapeutic Recreation Assistant: Zac Servin MD WBC (Bld) [#/Vol] 6.9 10*3/uL Normal 3.5-11.3 [facility] Comment on above: Performed By: #### C PBILC, CDP, LIP #### [address] [place] [address] Therapeutic Recreation Assistant: Allison Zavaleta MD #### CELP #### [address] [phone] Therapeutic Recreation Assistant: Zac Servin MD Comp Metab w/Bili Pron 12-25 Albumin [Mass/Vol] 4.3 g/dL Normal 3.5-5.2 [facility] Comment on above: Performed By: #### C PBILC, CDP, LIP #### [facility] [address] [place] [address] [place] [address] Therapeutic Recreation Assistant: Allison Zavaleta MD #### CELP #### [address] [address] Therapeutic Recreation Assistant: Zac Servin MD Albumin/Glob Ratio 1.4 Normal 1.0-2.5 [facility] Comment on above: Performed By: #### C PBILC, CDP, LIP #### [facility] [address] [place] [address] [place] [address] Therapeutic Recreation Assistant: Allison Zavaleta MD #### CELP #### [address] [address] Therapeutic Recreation Assistant: Zac Servin MD Alkaline Phos 91 U/L Normal 35-104 [facility] Comment on above: Performed By: #### C PBILC, CDP, LIP #### [facility] [address] [place], [place] [id number] Therapeutic Recreation Assistant: Allison Zavaleta MD #### CELP #### [address] [phone] Therapeutic Recreation Assistant: Zac Servin MD ALT [Catalytic activity/Vol] 22 U/L Normal 5-33 [facility] Comment on above: Performed By: #### C PBILC, CDP, LIP #### [facility] [address] [place], [place] 2878883 Therapeutic Recreation Assistant: Allison Zavaleta MD #### CELP #### [address] [phone] Therapeutic Recreation Assistant: Zac Servin MD Anion gap [Moles/Vol] 10 mmol/L Normal 9-17 [facility] Comment on above: Performed By: #### C PBILC, CDP, LIP #### [facility] [address] [place], [place] 3992783 Therapeutic Recreation Assistant: Allison Zavaleta MD #### CELP #### [address] [address] Therapeutic Recreation Assistant: Zac Servin MD AST [Catalytic activity/Vol] 16 U/L Normal <32 [facility] Comment on above: Performed By: #### C PBILC, CDP, LIP #### [facility] [address] [place], [place] 3352183 Therapeutic Recreation Assistant: Allison Zavaleta MD #### CELP #### [address] [address] Therapeutic Recreation Assistant: Zac Servin MD Bilirubin [Mass/Vol] 0.3 mg/dL Normal 0.3-1.[address] [facility] Comment on above: Performed By: #### C PBILC, CDP, LIP #### [facility] [address] [place], [place] 2886583 Therapeutic Recreation Assistant: Allison Zavaleta MD #### CELP #### [address] [phone] Therapeutic Recreation Assistant: Zac Servin MD Bilirubin, Indirect Can not be calculated Normal 0.0-1 .0 [facility] Comment on above: Performed By: #### C PBILC, CDP, LIP #### [facility] [address] [place], [place] 8059883 Therapeutic Recreation Assistant: Allison Zavaleta MD #### CELP #### [address] [phone] Therapeutic Recreation Assistant: Zac Servin MD Bilirubin.indirect [Mass/Vol] mg/dL Normal <0.3 [facility] Comment on above: Performed By: #### C PBILC, CDP, LIP #### [facility] [address] [place], [place] [id number] Therapeutic Recreation Assistant: Allison Zavaleta MD #### CELP #### [address] [address] Therapeutic Recreation Assistant: Zac Servin MD Calcium [Mass/Vol] 8.9 mg/dL Normal 8.6-10.4 [facility] Comment on above: Performed By: #### C PBILC, CDP, LIP #### [facility] [address] [place], [place] 9896783 Therapeutic Recreation Assistant: Allison Zavaleta MD #### CELP #### [address] [address] Therapeutic Recreation Assistant: Zac Servin MD Chloride [Moles/Vol] 101 mmol/L Normal 98-[address] [facility] Comment on above: Performed By: #### C PBILC, CDP, LIP #### [facility] [address] [place], [place] 6092983 Therapeutic Recreation Assistant: Allison Zavaleta MD #### CELP #### [facility] [address] [place], [place] [id number] Therapeutic Recreation Assistant: Zac Servin MD CO2 [Moles/Vol] 27 mmol/L Normal 20-31 [facility] Comment on above: Performed By: #### C PBILC, CDP, LIP #### [facility] [address] [place], [place] [address] Therapeutic Recreation Assistant: Allison Zavaleta MD #### CELP #### [facility] [address] [place], [place] 0559[address] Therapeutic Recreation Assistant: Zac Servin MD Creatinine [Mass/Vol] 0.7 mg/dL Normal 0.5-0.9 [facility] Comment on above: Performed By: #### C PBILC CDP, LIP #### [address] [place] [address] Therapeutic Recreation Assistant: Allison Zavaleta MD #### CELP #### [facility] [address] [place], [place] 9209[address] Therapeutic Recreation Assistant: Zac Servin MD GFR/1.73 sq M.predicted among non-blacks MDRD (S/P/Bld) [Vol rate/Area] mL/min/{1.73_m2} Normal >60 [facility] Comment on above: Result Comment: These results [...] renal tubular secretion. Performed By: #### C PBILC, CDP, LIP #### [facility] [address] [place] [address] Dr. [place], [place] [id number] Therapeutic Recreation Assistant: Allison Zavaleta MD #### CELP #### [place] [address] [place], [place] [address] Therapeutic Recreation Assistant: Zac Servin MD Glucose [Mass/Vol] 135 mg/dL High 70-99 [facility] Comment on above: Performed By: #### C PBILC, CDP, LIP #### [facility] [address] [place] [address] Dr. [place], [place] 0260983 Therapeutic Recreation Assistant: Allison Zavaleta MD #### CELP #### [address] [id number] Therapeutic Recreation Assistant: Zac Servin MD Potassium [Moles/Vol] 4.1 mmol/L Normal 3.7-5.3 [facility] Comment on above: Performed By: #### C PBILGino CDP, LIP #### [facility] [address] [place] [address] [place], [place] 1412[address] Therapeutic Recreation Assistant: Allison Zavaleta MD #### CELP #### [address] [address] Therapeutic Recreation Assistant: Zac Servin MD Protein [Mass/Vol] 7.4 g/dL Normal 6.4-8.3 [facility] Comment on above: Performed By: #### C PBILC, CDP, LIP #### [facility] [address] [place] [address] Dr. [place], [place] 1453383 Therapeutic Recreation Assistant: Allison Zavaleta MD #### CELP #### [address] [address] Therapeutic Recreation Assistant: Zac Servin MD Sodium [Moles/Vol] 138 mmol/L Normal 135-144 [facility] Comment on above: Performed By: #### C PBILC, CDP, LIP #### [facility] [address] [place] [address] [place] [address] Therapeutic Recreation Assistant: Allison Zavaleta MD #### CELP #### [facility] [address] [place], [place] 17725[address] Therapeutic Recreation Assistant: Zac Servin MD Urea nitrogen [Mass/Vol] 12 mg/dL Normal 6-20 [facility] Comment on above: Performed By: #### C PBILC, CDP, LIP #### [facility] [address] [place] [address] Therapeutic Recreation Assistant: Allison Zavaleta MD #### CELP #### [facility] [address] [place], [place] [address] Therapeutic Recreation Assistant: Zac Servin MD Lipaseon 1 Lipase [Catalytic activity/Vol] 36 U/L Normal 13-60 [facility] Comment on above: Performed By: #### C PBILC, CDP, LIP #### [facility] [address] [place] [address] Therapeutic Recreation Assistant: Allison Zavaleta MD #### CELP #### [facility] [address] [place], [place] 4[address] Therapeutic Recreation Assistant: Zac Servin MD COMPLETE BLOOD COUNTon 12-12 Erythrocyte distribution width (RBC) [Ratio] 18.2 % High 11.5-15.0 [facility] Comment on above: Performed By: #### 2 6449-9, 67369-0, HA1C, IMGB, 77602-3, CBC, THYR, 6771-0, 2132-9 #### [facility] ([id number]) [address] [place] [address], [address] [place] [address] #### 23906-2 #### [facility] ([id number]) [address] [place] [address], [place] [address] Hematocrit (Bld) [Volume fraction] 42.1 % Normal 35-47 [facility] Comment on above: Performed By: #### 2 6449-9, 32202-3, HA1C, IMGB, 61056-0, CBC, THYR, 6771-0, 2132-03 #### [facility] ([id number]) [address], [address] [place] [address] #### 35696-6 #### [facility] ([id number]) [address] [place] [address] Hemoglobin (Bld) [Mass/Vol] 13.6 g/dL Normal 11.7-15.5 [facility] Comment on above: Performed By: #### 2 6449-9, 48697-2, HA1C, IMGB, 76038-4, CBC, THYR, 6771-0, 2132-03 #### [facility] ([id number]) [address], [address] [place] [address] #### 00426-5 #### [facility] ([id number]) [address] [place] [address] MCH (RBC) [Entitic mass] 26.3 pg Low 27-34 [facility] Comment on above: Performed By: #### 2 6449-9, 58343-8, HA1C, IMGB, 40313-0, CBC, THYR, 6771-0, 2132-03 #### [facility] ([id number]) [address], [address] [place] [address] #### 36856-9 #### [facility] ([id number]) [address] [place] [address] MCHC (RBC) [Mass/Vol] 32.4 g/dL Normal 32-36 [facility] Comment on above: Performed By: #### 2 6449-9, 55956-3, HA1C, IMGB, 95041-8, CBC, THYR, 6771-0, 2132-03 #### [facility] ([id number]) [address], [address] [place] [address] #### 42052-0 #### [facility] ([id number]) [address] [place] [address] MCV (RBC) [Entitic vol] 81 fL Normal 80-100 [facility] Comment on above: Performed By: #### 2 6449-9, 01649-5, HA1C, IMGB, 65587-2, CBC, THYR, 6771-0, 2132-03 #### [facility] ([id number]) [address], [address] [place] [address] #### 04257-8 #### [facility] ([id number]) [address] [place] [address] Platelet mean volume (Bld) [Entitic vol] 8.2 fL Normal 7-12 [facility] Comment on above: Performed By: #### 2 6449-9, 30429-4, HA1C, IMGB, 95903-4, CBC, THYR, 6771-0, 2132-03 #### [facility] ([id number]) [address], [address] [place] [address] #### 91318-9 #### [facility] ([id number]) [address] [place] [address] Platelets (Bld) [#/Vol] 338 10*3/uL Normal 150-450 [facility] Comment on above: Performed By: #### 2 6449-9, 18107-0, HA1C, IMGB, 92559-4, CBC, THYR, 6771-0, 2132-03 #### [facility] ([id number]) [address], [address] [place] [address] #### 78075-9 #### [facility] ([id number]) [address] [place] [address] RBC COUNT 5.19 X10E12/L Normal 3.80-5.20 [facility] Comment on above: Performed By: #### 2 6449-9, 45953-8, HA1C, IMGB, 19765-0, CBC, THYR, 6771-0, 2132-03 #### [facility] ([id number]) [address], [address] [place] [address] #### 73002-8 #### [facility] ([id number]) [address] [place] [address] WBC (Bld) [#/Vol] 7.7 10*3/uL Normal 4.0-11.0 [facility] Comment on above: Performed By: #### 2 6449-9, 78072-0, HA1C, IMGB, 70065-4, CBC, THYR, 6771-0, 2132-03 #### [facility] ([id number]) [address], [address] [place] [address] #### 33455-3 #### [facility] ([id number]) [address] [place] [address] COMPREHENSIVE METABOLIC PANE Toribio 12-13-2023 Albumin [Mass/Vol] 4.4 g/dL Normal 3.2-5.3 [facility] Comment on above: Performed By: #### 2 6449-9, 00105-5, HA1C, IMGB, 52412-7, CBC, THYR, 6771-0, 2132-03 #### [facility] ([id number]) [address], [address] [place] [address] #### 82603-9 #### [facility] ([id number]) [address] [place] [address]60 ALP [Catalytic activity/Vol] 81 U/L Normal 39-130 [facility] Comment on above: Performed By: #### 2 6449-9, 58545-2, HA1C, IMGB, 47252-0, CBC, THYR, 6771-0, 2132-03 #### [facility] ([id number]) [address], [address] [place] [address] #### 54659-9 #### [facility] ([id number]) [address] [place] [address] ALT [Catalytic activity/Vol] 27 U/L Normal 0-31 [facility] Comment on above: Performed By: #### 2 6449-9, 85550-0, HA1C, IMGB, 20661-0, CBC, THYR, 6771-0, 2132-03 #### [facility] ([id number]) [address], [address] [place] [address] #### 08714-7 #### [facility] ([id number]) [address] [place] [address] Anion gap [Moles/Vol] 9 mmol/L Normal 5-15 [facility] Comment on above: Performed By: #### 2 6449-9, 57524-7, HA1C, IMGB, 60424-4, CBC, THYR, 6771-0, 2132-03 #### [facility] ([id number]) [address], [address] [place] [address] #### 36561-6 #### [facility] ([id number]) [address] [place] [address] AST [Catalytic activity/Vol] 20 U/L Normal 0-41 [facility] Comment on above: Performed By: #### 2 6449-9, 99798-4, HA1C, IMGB, 15083-6, CBC, THYR, 6771-0, 2132-03 #### [facility] ([id number]) [address], [address] [place] [address] #### 62888-9 #### [facility] ([id number]) [address] [place] [address] Bilirubin [Mass/Vol] 0.4 mg/dL Normal 0.3-1.2 [facility] Comment on above: Performed By: #### 2 6449-9, 95343-0, HA1C, IMGB, 45093-1, CBC, THYR, 6771-0, 2132-03 #### [facility] ([id number]) [address], [address] [place] [address] #### 29437-7 #### [facility] ([id number]) [address] [place] [address] Calcium [Mass/Vol] 9.2 mg/dL Normal 8.5-10.5 [facility] Comment on above: Performed By: #### 2 6449-9, 08249-1, HA1C, IMGB, 16024-1, CBC, THYR, 6771-0, 2132-03 #### [facility] ([id number]) [address], [address] [place] [address] #### 93830-8 #### [facility] ([id number]) [address] [place] [address]70 Chloride [Moles/Vol] 103 mmol/L Normal 98-109 [facility] Comment on above: Performed By: #### 2 6449-9, 60733-6, HA1C, IMGB, 27522-7, CBC, THYR, 6771-0, 2132-03 #### [facility] ([id number]) [address], [address] [place] [address] #### 81492-4 #### [facility] ([id number]) [address] [place] [address] CO2 [Moles/Vol] 26 mmol/L Normal 22-32 [facility] Comment on above: Performed By: #### 2 6449-9, 20271-0, HA1C, IMGB, 20666-2, CBC, THYR, 6771-0, 2132-03 #### [facility] ([id number]) [address], [address] [place] [address] #### 39660-5 #### [facility] ([id number]) [address] [place] [address] Creatinine [Mass/Vol] 0.69 mg/dL Normal 0.40-1.00 [facility] Comment on above: Result Comment: METH OD TRACEABLE TO IDMS STANDARD Performed By: #### 2 6449-9, 80844-3, HA1C, IMGB, 39539-7, CBC, THYR, 6771-0, 2132-03 #### [facility] ([id number]) [address], [address] [place] [address] #### 36215-6 #### [facility] ([id number]) [address] [place] [address]174 eGFR (CKD-EPI) NON-RACE DEPENDENT >90 Normal >59 [facility] Comment on above: Result Comment: Reported eGFR is based on the CKD-EPI 2020 equation that does not use a race coefficient. Performed By: #### 2 6449-9, 44192-5, HA1C, IMGB, 45181-8, CBC, THYR, 6771-0, 2132-03 #### [facility] ([id number]) [address], [address] [place] [address] #### 56923-9 #### [facility] ([id number]) [address] [place] [address] 47419 Glucose [Mass/Vol] 128 mg/dL High 65-99 [facility] Comment on above: Performed By: #### 2 6449-9, 25869-3, HA1C, IMGB, 92708-3, CBC, THYR, 6771-0, 2132-03 #### [facility] ([id number]) [address], [address] [place] [address] #### 09385-5 #### [facility] ([id number]) [address] [place] [address] 14015 Potassium [Moles/Vol] 4.2 mmol/L Normal 3.5-5.0 [facility] Comment on above: Performed By: #### 2 6449-9, 74029-2, HA1C, IMGB, 21203-3, CBC, THYR, 6771-0, 2132-03 #### [facility] ([id number]) [address], [address] [place] [address] #### 10303-3 #### [facility] ([id number]) [address] [place] [address] 31790 Protein [Mass/Vol] 7.4 g/dL Normal 6.0-8.0 [facility] Comment on above: Performed By: #### 2 6449-9, 91300-9, HA1C, IMGB, 57239-3, CBC, THYR, 6771-0, 2132-03 #### [facility] ([id number]) [address], [address] [place] [address] #### 66806-5 #### [facility] ([id number]) [address] [place] [address] 14129 Sodium [Moles/Vol] 138 mmol/L Normal 134-146 [facility] Comment on above: Performed By: #### 2 6449-9, 20743-3, HA1C, IMGB, 46616-3, CBC, THYR, 6771-0, 2132-03 #### [facility] ([id number]) [address], [address] [place] [address] #### 16474-3 #### [facility] ([id number]) [address] [place] [address] 28624 Urea nitrogen [Mass/Vol] 10 mg/dL Normal 5-23 [facility] Comment on above: Performed By: #### 2 6449-9, 87692-5, HA1C, IMGB, 70631-8, CBC, THYR, 6771-0, 2132-03 #### [facility] ([id number]) [address] [place] [address], [address] [place] [address] #### 96334-4 #### [facility] ([id number]) [address] [place] [address] 47619 Lipid 1996 panelon 4 Cholesterol [Mass/Vol] 137 mg/dL Low 150-200 [facility] Comment on above: Performed By: #### 2 6449-9, 06155-0, HA1C, IMGB, 04157-7, CBC, THYR, 6771-0, 2132-03 #### [facility] ([id number]) [address] [place] [address], [address] [place] [address] #### 54305-4 #### [facility] ([id number]) [address] [place] [address] 50034 Cholesterol in HDL [Mass/Vol] 48 mg/dL Normal >39 [facility] Comment on above: Result Comment: HDL <40 mg/dL - High Risk HDL > or = 40mg/dL- Desirable HDL >60 mg/dL - Negative Risk Performed By: #### 2 6449-9, 36084-2, HA1C, IMGB, 57037-9, CBC, THYR, 6771-0, 2132-03 #### [facility] ([id number]) [address], [address] [place] [address] #### 37344-8 #### [facility] ([id number]) [address] [place] [address] 36554 Cholesterol in LDL [Mass/Vol] 62 mg/dL Normal <130 [facility] Comment on above: Result Comment: LDL <100 mg/dL - Desirable LDL >160 mg/dL - High Risk Performed By: #### 2 6449-9, 12543-0, HA1C, IMGB, 92652-2, CBC, THYR, 6771-0, 2132-03 #### [facility] ([id number]) [address], [address] [place] [address] #### 29310-7 #### [facility] ([id number]) [address] [place] [address] 03682 Cholesterol in VLDL [Mass/Vol] 27 mg/dL Normal 0-30 [facility] Comment on above: Performed By: #### 2 6449-9, 35728-7, HA1C, IMGB, 90528-0, CBC, THYR, 6771-0, 2132-03 #### [facility] ([id number]) [address], [address] [place] [address] #### 67696-0 #### [facility] ([id number]) [address] [place] [address] 97115 CHOLESTEROL:HDL 2.9 Normal 1.0-5.0 [facility] Comment on above: Performed By: #### 2 6449-9, 09545-7, HA1C, IMGB, 20029-5, CBC, THYR, 6771-0, 2132-03 #### [facility] ([id number]) [address], [address] [place] [address] #### 23117-0 #### [facility] ([id number]) [address] [place] [address] 43103 Triglyceride [Mass/Vol] 136 mg/dL Normal 27-150 [facility] Comment on above: Performed By: #### 2 6449-9, 00841-0, HA1C, IMGB, 07015-7, CBC, THYR, 6771-0, 2132-03 #### [facility] ([id number]) [address], [address] [place] [address] #### 04846-4 #### [facility] ([id number]) [address] [place] [address] 78125 THYROID PROFILEon 12-13-2023 Free T4 [Mass/Vol] 1.01 ng/dL Normal 0.61-1.60 [facility] Comment on above: Performed By: #### 2 6449-9, 14501-4, HA1C, IMGB, 02808-7, CBC, THYR, 6771-0, 2132-03 #### [facility] ([id number]) [address], [address] [place] [address] #### 48365-8 #### [facility] ([id number]) [address] [place] [address] 57062 TSH 1.81 uIU/mL Normal 0.49-4.67 [facility] Comment on above: Performed By: #### 2 6449-9, 00557-4, HA1C, IMGB, 23382-9, CBC, THYR, 6771-0, 2132-03 #### [facility] ([id number]) [address], [address] [place] [address] #### 28865-3 #### [facility] ([id number]) [address] [place] [address] 89920 XR CHEST 2 VWSon 05-15-2024 XR CHEST 2 VWS XR CHEST 2 [...] on above: Performed By: #### 2 6449-9, 87190-8, HA1C, IMGB, 14146-2, CBC, THYR, 6771-0, 9 #### [facility] ([id number]) [address] [place] [address], [address] [place] [address] #### 50957-2 #### [facility] ([id number]) [address] [place] [address], [place] [address] Surgical Pathologyon 024 Surgical Pathology Normal [facility] Comment on above: Result Comment: [facility] [address] [place] [address] Surgical Pathology Consultation Patient Name:RAYA GONZALES:1980 (Age: 43)Gender:FTaken:4Reported:4Physician(s):Marlon Tillman D.O. ([phone])Copy To: Rec. #:[id number]: #[id number] Final Pathologic Diagnosis 1. Duodenal biopsies: Normal [...] and hyperplastic polyps. Report Electronically Signed Out [facility]/11/22/2023Sudarinel Sahu M.D. Interpretation performed at [facility], [address] [place] [address], [place] [id number], License number: [id number]. Clinical History GERD/rectal bleed. 4. Snared a polyp. 5. Snared a polyp. 6. Snared polyps x3. Gross Description 1. Received in formalin labeled [place], duodenum BX are two light robles soft tissue bits, 0.2 cm each. The specimen is filtered and entirely submitted in a single cassette. (1, ns, [id number],m8) DM. 2. Received in formalin labeled [place], antrum BX are two light robles soft tissue bits, 0.3 and 0.4 cm. The specimen is filtered and entirely submitted in a single cassette. (1, ns, [id number],m8) DM. 3. Received in formalin labeled [place], distal esophagus BX are four light robles soft tissue bits, 0.1-0.2 cm. The specimen is filtered and entirely submitted in a single cassette. (1, ns, [id number],m8) DM. 4. Received in formalin labeled [place], hepatic flexure polyp are four light robles feathery soft tissue bits, 0.1-0.5 cm. The specimen is filtered and entirely submitted in a single cassette. (1, ns, [id number],m8) DM. 5. Received in formalin labeled [place], descending colon polyp are two light robles soft tissue bits, 0.1 and 0.6 cm. The specimen is filtered and entirely submitted in a single cassette. (1, ns, [id number],m8) DM. 6. Received in formalin labeled VINNY, sigmoid colon polyp are five light robles soft tissue bits, 0.2-0.4 cm. The specimen is filtered and entirely submitted in a single cassette. (1, ns, [id number],m8) DM. dm/11/21/2023NSK Specimen(s) Received 1: Duodenum biopsy 2: Antrum biopsy 3: Distal esophageal biopsy 4: Hepatic flexure polyp 5: Descending colon polyp 6: Sigmoid colon polyp Fee Codes(s): 1; 47893 2; 90840 3; 41521, 3126F 4; 76169 5; 51408 6; 29940 CNPNon 02-01-2022 CNPN Telephone (RAJANI) RAYA GONZALES ([id number]) 1980 F Date Time Provider Department 02/01/22 [...] ARCE on 02/10/22 [facility] ERRONEOUSENCon 02-01-2022 ERRONEOUSENC [id number] Tia Gonzales sa 1980 F * Clinical document posted in Error * Encounter Type Conversion History User Instant Changed From Changed To MARY WALDEN Feb 10, 2022 3* Telephone Erroneous* [facility] Vital Signs Date Time Vital Sign Value Performing Clinician Facility 10-08-2024 14:16-0400 Body height 162.6 cm Elvi Chapman MD Work Phone: [facility] 10-08-2024 14:16-0400 Body mass index (BMI) [Ratio] 45.76 kg/m2 Elvi Chapman MD Work Phone: [facility] 10-08-2024 14:16-0400 Body weight 120.93 kg Elvi Chapman MD Work Phone: [facility] 10-08-2024 14:16-0400 Diastolic blood pressure 84 mm[Hg] Elvi Chapman MD Work Phone: [facility] 10-08-2024 14:16-0400 Systolic blood pressure 132 mm[Hg] Elvi Chapman MD Work Phone: [facility] 09-03-2024 13:36-0500 Body height 162.6 cm [facility] 09-03-2024 13:36-0500 Body mass index (BMI) [Ratio] 45.32 kg/m2 [facility] 09-03-2024 13:36-0500 Body weight 119.75 kg [facility] 1 [facility] 07-30-2024 13:03-0500 Body height 162.6 cm Elvi Chapman MD Work Phone: [facility] 07-30-2024 13:03-0500 Body mass index (BMI) [Ratio] 46.59 kg/m2 Elvi Chapman MD Work Phone: [facility] 07-30-2024 13:03-0500 Body weight 123.11 kg Elvi Chapman MD Work Phone: [facility] 07-30-2024 13:03-0500 Diastolic blood pressure 102 mm[Hg] Elvi Chapman MD Work Phone: [facility] 07-30-2024 13:03-0500 Systolic blood pressure 158 mm[Hg] Elvi Chapman MD Work Phone: [facility] 11-17-2023 13:49-0400 Body height 162.6 cm Yojana Abbasi MD PhD Work Phone: [facility] 11-17-2023 13:49-0400 Body mass index (BMI) [Ratio] 47.89 kg/m2 Yojana Abbasi MD PhD Work Phone: [facility] 11-17-2023 13:49-0400 Body weight 126.55 kg Yojana Abbasi MD PhD Work Phone: [facility] 11-17-2023 13:49-0400 Diastolic blood pressure 88 mm[Hg] Yojana Abbasi MD PhD Work Phone: [facility] 11-17-2023 13:49-0400 Heart rate 90 /min Yojana Abbasi MD PhD Work Phone: [facility] [place] 11-17-2023 13:49-0400 Respiratory rate 20 /min Yojana Abbasi MD PhD Work Phone: [facility] 11-17-2023 13:49-0400 Systolic blood pressure 138 mm[Hg] Yojana Abbasi MD PhD Work Phone: [facility] Encounters Encounter Date Encounter Type Care Provider Facility Start: 12-13-2024 End: 12-14-2024 Clinisync Result Encounter Arnold MACIEL Work Phone: [facility] Unsolicited Start: 12-13-2024 End: 12-14-2024 Clinisync Result Encounter Arnold MACIEL Work Phone: [facility] Unsolicited Start: 10-18-2024 End: 10-18-2024 ambulatory [facility] Start: 10-08-2024 End: 10-08-2024 Office outpatient visit 15 minutes Elvi Chapman MD Work Phone: [facility]ne[facility] Comment on above: DUB (dysfunctional u terine bleeding) (Primary Dx) Start: 10-08-2024 End: 10-08-2024 ambulatory [facility] Start: 09-09-2024 End: 09-09-2024 Evaluation and management of inpatient ALLISON Kristen [facility] Start: 09-09-2024 End: 09-09-2024 Evaluation and management of inpatient [facility] Start: 09-03-2024 End: 09-03-2024 Patient encounter procedure [facility] Pre-Admission Testing 1 [facility] - Pre Ad[facility] Comment on above: Preop examination (P rimary Dx); Obesity, morbid, BMI 40.0-49.9 ([facility]); Asthma, unspecified asthma severity, unspecified whether complicated, unspecified whether persistent Start: 09-03-2024 End: 09-03-2024 Preprocedural examination done Pm 1 [facility] Start: 09-03-2024 End: 09-03-2024 ambulatory ALLISON Peterson [facility] Start: 09-03-2024 Encounter for other preprocedural examination [facility] Start: 08-05-2024 End: 08-05-2024 Telephone encounter Elvi Chapman MD Work Phone: [facility]stetrics/Gynecology Start: 07-30-2024 End: 07-30-2024 Office outpatient visit 15 minutes Elvi Chapman MD Work Phone: [facility] Obstetrics/Gynecology Comment on above: DUB (dysfunctional u terine bleeding) (Primary Dx) Start: 07-30-2024 End: 08-01-2024 ambulatory [facility] Start: 07-15-2024 End: 07-15-2024 ambulatory [facility] Start: 07-15-2024 End: 07-15-2024 ambulatory [facility] Start: 07-09-2024 End: 07-09-2024 ambulatory [facility] Start: 06-24-2024 End: 06-24-2024 ambulatory [facility] Start: 06-21-2024 End: 06-21-2024 Emergency department patient visit [facility] Start: 06-19-2024 End: 06-19-2024 ambulatory [facility] Start: 06-19-2024 Encounter for gynecological examination (general) (routine) without abnormal findings JANELL [facility] Start: 06-19-2024 End: 06-19-2024 ambulatory [facility] Start: 06-19-2024 Encounter for gynecological examination (general) (routine) without abnormal findings [facility] Start: 06-17-2024 End: 06-17-2024 ambulatory [facility] Start: 06-12-2024 End: 06-12-2024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 12/26/2023 12/25/2024 1 1 Reason Comments Follow-up Reason Comments Post-op Care Teams (unrecognized sec tion and content) Non Linear Editor Relationship Specialty Start Date End Date Seven Bowden APRN - JOB PLACEMENT OFFICER [address] [place] [id number] PCP - General Nurse Practitioner 12/26/23 Non Linear Editor Relationship Specialty Start Date End Date Seven Bowden APRN-FNP [address] [place] [id number] PCP - General Family Medicine 10/09/23 Non Linear Editor Relationship Specialty Start Date End Date Seven Bowden APRN-FNP [address] [place] [id number] PCP - General Family Medicine 10/09/23 Non Linear Editor Relationship Specialty Start Date End Date Cinthya DEVAN Isbell-CONSTRUCTION PROJECT MANAGER [address] [place] [address] PCP - General Family Medicine 10/09/23 FOR [...] BE BASED ON THE PRIMARY CLINICAL RECORDS. [facility] [employer] provides no warranty or guarantee of the accuracy or completeness of information in this document.
--- NOTE | 2024-12-16 11:44 | CM.DCFOLLOWU ---
Person spoke with:patient How are you feeling? still having migraine/headache. Advised to return to ED if worsens/unbearable How is your pain? still having pain Did you understand your discharge instructions?yes Do you have any questions about your discharge instructions?no Were you given any prescriptions at discharge?yes Were you able to get your prescriptions filled? got 1 of them and getting the other one today Do you understand how to take your medications as ordered?yes Do you have any questions about your follow up appointment and do you plan to keep your follow up appointment? no questions, has both follow ups scheduled Is there anything else that you would like to discuss?no Questions/Comments/Concerns/Other:none
== END 2024-12-14 14:53 | disposition home or self-care (01) ==
LOC: ER 17:16 → MS 12-14 14:05
PROVIDERS: Personal Emergency Response Attendant; Admitting Provider Family Medicine; Emergency Provider Emergency Medicine; PCP Nurse Practitioner; Visit Provider Internal Medicine
DX: G43.011 Migraine without aura, intractable, with status migrainosus (principal); I10 Essential (primary) hypertension; F17.200 Nicotine dependence, unspecified, uncomplicated; E11.9 Type 2 diabetes mellitus without complications; K21.9 Gastro-esophageal reflux disease without esophagitis; H54.7 Unspecified visual loss; Z79.899 Other long term (current) drug therapy; Z88.8 Allergy status to other drugs, medicaments and biological substances; Z79.84 Long term (current) use of oral hypoglycemic drugs
CPT/HCPCS: 36415; 70450; 71045; 80048; 80053; 81001; 83036; 83690; 84703; 85025; 93005; 96361; 96365; 96367; 96375; 96376; 99285; 99406; G0378; J0780; J1100; J1200; J1885; J2060; J2270; J2360; J2405; J3360; J3475; Q0162

== ENCOUNTER 2024-12-19 16:32 | Emergency (ER) | payer OTHER, SELFPAY ==
--- OUTSIDE RECORDS SUMMARY | 2024-10-02 10:00 | XMS_ITS ---
Author Organization [facility] Address [address] [place], [place] [id number] Care Team Providers Care Cargo Service Supervisor Name Role Phone Akilah Bowden Primary Care Provider Katie Flores Unavailable [phone] Allergies Allergen (clinical drug ingredient) Drug/Non Drug Allergy documented on EMR Reaction Allergy Type Onset Date Status promethazine Phenergan hives Drug Allergy Acti ve REASON FOR VISIT Liver issue- needs a referral for specialist Medications Medication SIG (Take, Route, Frequency, Duration) Notes Start Date End Date Status Ondansetron HCl 4 MG 1 tablet Orally Onc e a day for 30 day(s) 07/03/2024 Active metFORMIN HCl ER 500 MG 1 tablet with evening meal Orally Once a day for 90 days Active Ondansetron 8 MG 1 tablet on the tongue and allow to dissolve as needed Orally Once a day for 30 days Active Dicyclomine HCl 20 MG TAKE 1 TABLET BY MOUTH THREE TIMES DAILY FOR 7 DAYS for 7 Active Carafate 1 GM 1 tablet on an empty stomach Orally four times per day as needed for 15 days May takes as needed for indigestion prior to meals 07/03/2024 Active Pantoprazole Sodium 40 MG Take 1 tablet in the morning and 1 tablet in the evening Orally Twice a day for 30 days PLEASE FILL THIS ONE FOR 2X DAILY AND CANCEL 1x DAILY RX 05/27/2024 Active Famotidine 20 MG 1 tablet at bedtime as needed Oral Once a day for 30 days Active Incruse Ellipta 62.5 MCG/ACT Inhalation Active Albuterol Sulfate HFA 108 (90 Base) MCG/ACT INHALE 2 PUFFS BY MOUTH EVERY 4 HOURS NEEDED FOR WHEEZING Inhalation Active Dulera 200-5 MCG/ACT Inhalation Active Social History Sex Assigned At : Social History Observation Description Sex Assigned At Female Encounters Encounter Location Date Provider Diagnosis Main [address] [place], [place] [id number] 10/02/2024 Katie Flores Plan Of Treatment Next Appt Details Provider Name:Akilah Bowden, 01/20/2025 02:00:00 PM, [address] [facility], [place], [place], [id number], Progress Notes * Raya CASILLASDOB: [birth year] (44 yo F)Acc No.[id number]:10/02/2024 Medical Note Patient: Raya VIGIL Provider: Shauna Flores :1980 A ge:44 Y S ex:Female Date:10/02/2024 Address:[address] [place], [place] [id number] Pcp:Akilah Bowden Subjective: * Chief Complaints: * 1 . Liver issue- needs a referral for specialist. * Medical History: M S, Hemorrhoids, Depression, Anxiety. * Medications: T aking Pantoprazole Sodium 40 MG Tablet Delayed Release Take 1 tablet in the morning and 1 tablet in the evening Orally Twice a day , Notes to Pharmacist: PLEASE FILL THIS ONE FOR 2X DAILY AND CANCEL 1x DAILY RX, Taking Famotidine 20 MG Tablet 1 tablet at bedtime as needed Oral Once a day , Taking Albuterol Sulfate HFA 108 (90 Base) MCG/ACT Aerosol Solution INHALE 2 PUFFS BY MOUTH EVERY 4 HOURS NEEDED FOR WHEEZING Inhalation , Taking Dulera 200-5 MCG/ACT Aerosol Inhalation , Taking Incruse Ellipta 62.5 MCG/ACT Aerosol Powder Breath Activated Inhalation , Taking Carafate 1 GM Tablet 1 tablet on an empty stomach Orally four times per day as needed May takes as needed for indigestion prior to meals, Taking Ondansetron HCl 4 MG Tablet 1 tablet Orally Once a day , Taking metFORMIN HCl ER 500 MG Tablet Extended Release 24 Hour 1 tablet with evening meal Orally Once a day , Taking Ondansetron 8 MG Tablet Disintegrating 1 tablet on the tongue and allow to dissolve as needed Orally Once a day , Taking Dicyclomine HCl 20 MG Tablet TAKE 1 TABLET BY MOUTH THREE TIMES DAILY FOR 7 DAYS * Allergies: P henergan: hives. Objective: * Vitals: * Examination: C QM Exceptions: Currently taking Aspirin: A spirin Use: N o Assessment: Plan: * Treatment: * Billing Information: * Visit Code: * Procedure Codes: * Electronic signature of TAYLOR Calero sa on 12/19/2024 at 04:45 PM EDT Sign off status: Pending * Provider: Shauna Flores Date: 0 10/02/2024 Generated for Sha John/Marlena on: 0 12/19/2024 04:45 PM EDT History and Physical Notes * Examination Category Sub-Category Detail Notes Category Not es CQM Exceptions Currently taking Aspirin: Aspirin Use:: No
--- OUTSIDE RECORDS SUMMARY | 2024-12-16 19:28 | XMS_ITS ---
Author Organization OHIP Support Name Relationship Address Phone HERMELINDA, ALLEN Significant Other [address] [facility] [address] [place] [address], [place] [address] Unavailable HERMELINDA, ALLEN Significant Other [address] [facility] [address] [place] [address], [place] [address] Unavailable HERMELINDA, ALLEN Significant Other [address] [facility] [address] [address] [place] [address] Unavailable HERMELINDA, ALLEN Significant Other [address] [facility] [address] [place] [address] Unavailable HERMELINDA, ALLEN Significant Other [address] [facility] [address] [place] [address] Unavailable HERMELINDA, ALLEN Significant Other [address] [facility] [address] [place] [address], [place] [address] Unavailable HERMELINDA, ALLEN Significant Other [address] [facility] [address] [address] [place] [address], [place] [address] Unavailable HERMELINDA, ALLEN Significant Other [address] [facility] [address] [place] [address] Unavailable HERMELINDA, ALLEN Significant Other [address] [facility] [address] [place] [address] Unavailable HERMELINDA, ALLEN Significant Other [address] [facility] [address] [address] [place] [address] Unavailable HERMELINDA, ALLEN Significant Other [address] [facility] [address] [address] [place] [address] Unavailable HERMELINDA, ALLEN Significant Other [address] [facility] [address] [address] [place] [address] Unavailable HERMELINDA, ALLEN Significant Other [address] [facility] [address] [address] [place] [address] Unavailable HERMELINDA, ALLEN Significant Other [address] [facility] [address] [address] [place] [address] Unavailable HERMELINDA, ALLEN Significant Other [address] [facility] [address] [place] [address] Unavailable HERMELINDA, ALLEN Significant Other [address] [facility] [address] [address] [place] [address] Unavailable HERMELINDA, ALLEN Significant Other [address] [facility] [address] [place] [address] Unavailable HERMELINDA, ALLEN Significant Other [address] [facility] [address] [place] [address] Unavailable HERMELINDA, ALLEN Significant Other [address] [place] [address] [address] [place] [address] Unavailable HERMELINDA, ALLEN Significant Other [address] [place] [address] [address] [place] [address] Un[place] [address] [phone] HERMELINDA, ALLEN Significant Other [address] [place] [address] [address] [place] [address] Un[place] [address] [phone] HERMELINDA, ALLEN Significant Other [address] [place] [address] [address] [place] [address] Un[place] [address] [phone] HERMELINDA, ALLEN Significant Other [address] [place] [address] [address] [place] [address] Un[place] [address] [phone] HERMELINDA, ALLEN Significant Other [address] [place] [address] [address] [place] [address] Un[place] [address] [phone] HERMELINDA, ALLEN Significant Other [address] [place] [address] [address] [place] [address] Un[place] [address] [phone] HERMELINDA, ALLEN Significant Other [address] [place] [address] [address] [place] [address] Un[place] [address] [phone] HERMELINDA, ALLEN Significant Other [address] [place], [place] [address]D [address] [place] [address] Un[place] [address] [phone] HERMELINDA, ALLEN Significant Other [address] [place] [address] [address] [place] [address] Un[place] [address] [phone] HERMELINDA, ALELN Significant Other [address] [facility] [address] [place] [address] Un[place] [address] [phone] HERMELINDA, ALLEN Significant Other [address] [facility] [address] [place] [address] Unavailable [place] [address] [phone] HERMELINDA, ALLEN Significant Other Unknown Unavailabl e HERMELINDA, ALLEN Significant Other Unknown Unavailabl e HERMELINDA, ALLEN Significant Other Unknown Unavailabl e Care Team Providers 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 Name Role Phone CINTHYA, SEVEN Primary Care Unavailable LIUDMILA GARCIA Attending Unavailable CHARLIE YOUNG Attending Unavailable CHARLIE YOUNG Referring Unavailable CINTHYA, SEVEN Primary Care Unavailable ANDRES DUPONT Attending Unavailable CINTHYA, SEVEN Referring Unavailable CINTHYA, SEVEN Primary Care Unavailable CINTHYA, SEVEN Primary Care Unavailable ANGIE TREVIZO Attending Unavailable ANGIE TREVIZO Attending Unavailable ANGIE TREVIZO Referring Unavailable CINTHYA, SEVEN Primary Care Unavailable ANGIE TREVIZO Attending Unavailable VANEDE ANGIE E Referring Unavailable CINTHYA, SEVEN Primary [...] Unavailable CINTHYA, SEVEN Primary Care Unavailable GISELA MARTINEZ Referring Unavailable CINTHYA, SEVEN Primary Care Unavailable CHAPARRITA BROWN Referring Unavailable CINTHYA, SEVEN Primary Care Unavailable CINTHYA, SEVEN Referring Unavailable CINTHYA, SEVEN Primary Care Unavailable GISELA TEJADA Referring Unavailable CINTHYA, SEVEN Primary Care Unavailable CINTHYA, SEVEN Primary Care Unavailable SUSHILA CHOW Attending Unavailable GISELA TEJADA Attending Unavailable MALLORY GISELA M Referring Unavailable CINTHYA, SEVEN Primary Care Unavailable ELVI BUSTAMANTE Attending Unavailable CINTHYA, SEVEN Referring Unavailable CINTHYA, SEVEN Primary Care Unavailable DIANNA, LEVI Referring Unavailable CINTHYA, SEVEN Primary Care Unavailable [...] SEVEN Primary Care Unavailable DIANNA, ELVI L Admitting Unavailable DIANNA, ELVI L Attending Unavailable CINTHYA, SEVEN Primary Care Unavailable ALLISON BETANCOURT Attending Unavailable CINTHYA, SEVEN Primary Care Unavailable ALLISON BETANCOURT Attending Unavailable CINTHYA, SEVEN Primary Care Unavailable DIANNA, ELVI L Attending Unavailable CINTHYA, SEVEN Referring Unavailable CINTHYA, SEVEN Primary Care Unavailable JNUE SHAMEKA Referring Unavailable CINTHYA, SEVEN Primary Care Unavailable CINTHYA, SEVEN Primary Care Unavailable (TTH ONLY), NEURO-CONSULTING Consulting Ivelisse vailable GIANLUCA PANDYA Admitting Unavailable JUANA BROWN Attending Unavailable CAPRICE FLORENTINO Referring Unavailable CINTHYA, SEVEN Primary Care Unavailable CAPRICE FLORENTINO Referring Unavailable CINTHYA, SEVEN Primary Care Unavailable CAPRICE FLORENTINO Referring Unavailable CINTHYA, SEVEN Primary Care Unavailable Purpose PROBLEMS DATE TYPE CONDITION / CODE ATTENDING STATUS BREANNA RCE 12/16/2024 Unknown Migraine, unspec ified, intractable, with status migrainosus / G43.911(ICD-10) [facility] 12/16/2024 Unknown Vomiting, unspec ified / R11.10(ICD-10) [facility] 12/16/2024 Unknown Headache / FREETEXT(AOF) [facility] 10/18/2024 Unknown Fatty (change of ) liver, not elsewhere classified / K76.0(ICD-10) NA Active [facility] 10/08/2024 Unknown Post-op / FREETEXT(AOF) ELVI BUSTAMANTE [facility] 09/03/2024 Unknown Body mass index (BMI) 45.0-49.9, adult / Z68.42(ICD-10) [facility] 06/19/2024 Unknown Morbid (severe) obesity due to excess calories / E66.01(ICD-10) [facility] 09/03/2024 Unknown Encounter for ot her preprocedural examination / Z01.818(ICD-10) [facility] 09/03/2024 Unknown Unspecified asth ma, uncomplicated / J45.909(ICD-10) [facility] 07/09/2024 Unknown Other specified abnormal uterine and vaginal bleeding / N93.8(ICD-10) DIANNAELIV [facility] 06/21/2024 Unknown Unspecified abdo eric pain / R10.9(ICD-10) [facility] 06/21/2024 Unknown Nausea with vomi ting, unspecified / R11.2(ICD-10) [facility] 06/21/2024 Unknown Abdominal Pain / FREETEXT(AOF) GERALDO [facility] 06/19/2024 Unknown Encounter for gynecological examination (general) (routine) without abnormal findings / Z01.419(ICD-10) [facility] 06/19/2024 Unknown Encounter for il reening for depression / Z13.31(ICD-10) [facility] 06/19/2024 Unknown Gynecologic Exam / FREETEXT(AOF) [facility] 06/17/2024 Unknown Moderate persist ent asthma, uncomplicated / J45.40(ICD-10) [facility] 06/17/2024 Unknown Acute bronchitis , unspecified / J20.9(ICD-10) [facility] 06/12/2024 Unknown Abnormal uterine and vaginal bleeding, unspecified / N93.9(ICD-10) [facility] 06/12/2024 Unknown Other specified noninflammatory disorders of vagina / N89.8(ICD-10) [facility] 06/12/2024 Unknown Menstrual Proble m / FREETEXT(AOF) [facility] 05/31/2024 Unknown Anesthesia of sk in / R20.0(ICD-10) CHAPARRITA BROWN [facility] 05/31/2024 Unknown Follow-up / FREETEXT(AOF) CHAPARRITA BROWN [facility] 03/05/2024 Unknown Mastodynia / N64.4(ICD-10) [facility] 01/30/2024 Unknown Other migraine, not intractable, without status migrainosus / G43.809(ICD-10) ANGIE TREVIZO [facility] 01/30/2024 Unknown Headache - Recur rent Or Known Dx Migraines / FREETEXT(AOF) ANGIE TREVIZO [facility] 01/26/2024 Unknown Other abnormal f indings on diagnostic imaging of central nervous system / R90.89(ICD-10) ANDRES DUPONT [facility] 01/26/2024 Unknown Claustrophobia / F40.240(ICD-10) ANDRES DUPONT [facility] 01/26/2024 Unknown New Patient / FREETEXT(AOF) ANDRES DUPONT [facility] 11/15/2020 Unknown Lower abdominal pain, unspecified / R10.30(ICD-10) LIUDMILA GARCIA [facility] 01/03/2024 Unknown Foreign Body in Vagina / FREETEXT(AOF) LIUDMILA GARCIA [facility] 01/03/2024 Unknown Tampon too far u p / UNK(Unknown) LIUDMLIA GARCIA [facility] 12/26/2023 Unknown Right upper quad rant pain / R10.11(ICD-10) [facility] 12/26/2023 Unknown Personal history of other diseases of the digestive system / Z87.19(ICD-10) [facility] 12/26/2023 Unknown Diarrhea, unspec ified / R19.7(ICD-10) NA Active [facility] PROCEDURES No Procedure Records Found VITAL SIGNS No Vital Signs Records Found RESULTS MAGNESIUM Collected: 12/17/2024 7:45 AM S tatus: COMPLETED Source: [facility] TYPE CODE TESTS RESULT OUT OF RANGE REFERENCE UNITS LAB MG MAGNESIUM 2.5 1.8-2.6 mg/dL Performed By: #### MG #### [facility] ([facility]) [address] [place] [address] VIR POCT , URINE (NUCG) Collected: 12/17/2024 12:04 AM Status: COMPLETED Source: [facility] TYPE CODE TESTS RESULT OUT OF RANGE REFERENCE UNITS LAB NUCG URINE NURSING Negative Negative Performed By: #### NUCG #### [facility] ([facility]) [address] [place] [address] VIR POCT NURSING URINE MACROSCOPIC UA Collected: 12/17/2024 12:02 AM Status: COMPLETED Source: [facility] TYPE CODE TESTS RESULT OUT OF RANGE REFERENCE UNITS LAB SPGRN SPECIFIC GRAVITY JOURDAN 1.025 1.010, 1.015, 1.020, 1.025 LAB LESTN LEUKOCYTE ESTERASE JOURDAN Negative Negative LAB NITN NITRITE JOURDAN Negative Negative LAB PHURN PH JOURDAN 5.5 5.0, 6.0, 6.5, 7.0, 7.5, 8.0, 8.5, 5.5 LAB PRURN PROTEIN JOURDAN Negative Negative LAB GLURN GLUCOSE JOURDAN Negative Negative LAB KETN KETONES JOURDAN Trace Abnormal Negative LAB UROBN UROBILINOGEN JOURDAN 0.2 E.U./dL LAB BILEN BILIRUBIN JOURDAN Negative Negative LAB BLURN BLOOD/HGB JOURDAN Negative Negative Performed By: #### NUM #### [facility] ([facility]) [address] [place] [address] BRAIN WO CONT Observed: 12/16/2024 8:33 PM Status: COMPLETED Source: [facility] CT BRAIN WO CONT CT BRAIN WO CONT CLINICAL HISTORY: migraine. Headache. COMPARISON: None. TECHNIQUE: CT head was performed without contrast using the standard protocol. Automated exposure control was utilized. FINDINGS: No acute appearing territorial region of diminished gotti-white differentiation. No acute intracranial hemorrhage. No ventriculomegaly. Unremarkable temporal bone structures, suprahyoid neck, orbits, scalp soft tissues. IMPRESSION: 1. No acute intracranial abnormality, by CT. If there is ongoing concern, consider MR. All CT scans at this facility use dose modulation, iterative reconstruction, and/or weight based dosing when appropriate to reduce radiation dose to as low as reasonably achievable. Finalized by Doug Javed MD on 12/16/2024 9:17 PM CBC WITH AUTO DIFFERENTIAL Collected: 0 12/16/2024 7:18 PM Status: COMPLETED Source: [facility] TYPE CODE TESTS RESULT OUT OF RANGE REFERENCE UNITS LAB WBC WBC 10.2 4-11 x10E9/L LAB RBC RBC COUNT 5.55 High 3.8-5.2 X10E12/L LAB HGB HEMOGLOBIN 12.8 11.7-15.5 g/dL LAB HCT HEMATOCRIT 39.5 35-47 % LAB MCV MCV 71 Low 80-100 fL LAB MCH MCH 23.0 Low 27-34 pg LAB MCHC MCHC 32.3 32-36 g/dL LAB RDW RDW 18.7 High 11.5-15 % LAB PLTC PLATELET COUNT 455 High 150-450 X10E9/L LAB MPV MPV 7.7 7-12 fL LAB NEUT NEUTROPHILS RELATIVE PERCENT BY AUTOMATED COUNT 69.6 % LAB LYMP LYMPHOCYTES RELATIVE PERCENT BY AUTOMATED COUNT 19.6 % LAB MONO MONOCYTES RELATIVE PERCENT BY AUTOMATED COUNT 6.8 % LAB EOS EOSINOPHILS RELATIVE PERCENT BY AUTOMATED COUNT 3.0 % LAB BASO BASOPHILS RELATIVE PERCENT BY AUTOMATED COUNT 1.0 % LAB ANEUT NEUTROPHILS ABSOLUTE COUNT BY AUTOMATED COUNT 7.1 High 1.5-6.6 10*3/uL LAB ALYMP LYMPHOCYTES ABSOLUTE COUNT (10*3/UL) BY AUTOMATED COUNT 2.0 1.0-3.5 10*3/uL LAB AMONO MONOCYTES ABSOLUTE COUNT (10*3/UL) BY AUTOMATED COUNT 0.7 0.0-0.9 10*3/uL LAB AEOS EOSINOPHILS ABSOLUTE COUNT (10*3/UL) BY AUTOMATED COUNT 0.3 0.0-0.4 10*3/uL LAB ABASO BASOPHILS ABSOLUTE COUNT (10*3/UL) BY AUTOMATED COUNT 0.1 0.0-0.2 10*3/uL LAB DTYPE CELLAVISION DIFFERENTIAL TYPE AUTOMATED DIFFERENTIAL Performed By: #### CBCA #### [facility] ([facility]) [address] [place] [address] VIR COMPREHENSIVE METABOLIC PANEL Collected: 2024 7:18 PM Status: COMPLETED Source: [facility] TYPE CODE TESTS RESULT OUT OF RANGE REFERENCE UNITS LAB NA SODIUM 136 134-146 mmol/L LAB K POTASSIUM 4.2 3.5-5.0 mmol/L LAB CL CHLORIDE 99 98-109 mmol/L LAB CO2 CARBON DIOXIDE 26 22-32 mmol/L LAB AGAP ANION GAP 11 5-15 mmol/L LAB BUN BLOOD UREA NITROGEN 13 5-23 mg/dL LAB CRET CREATININE 0.79 0.40-1.00 mg/dL Result Comment: METHOD TRACE ABLE TO IDMS STANDARD LAB GLU GLUCOSE 112 High 65-99 mg/dL LAB CA CALCIUM 9.7 8.5-10.5 mg/dL LAB TP TOTAL PROTEIN 7.9 6.0-8.0 g/dL LAB ALB ALBUMIN 4.7 3.2-5.3 g/dL LAB ALK ALKALINE PHOSPHATASE 74 39-130 U/L LAB AST AST 30 <=41 U/L LAB ALT ALT 29 <=31 U/L LAB TBIL BILIRUBIN,TOTAL 0.6 0.3-1.2 mg/dL LAB EGFR EGFR (CKD-EPI) NON-RACE DEPENDENT >^90 >=60 ml/min/1 .73sq.m Result Comment: Reported eGF R is based on the CKD-EPI 2020 equation that does not use a race coefficient. Performed By: #### CMP #### [facility] ([facility]) [address] [place] [address] VIR US ABDOMEN LMTD Observed: 10/18/2024 8:58 AM Status: COMPLETED Source: [facility] US ABDOMEN LMTD US ABDOMEN LMTD Clinical [...] steatosis. No biliary dilatation postcholecystectomy. Finalized by Jameson Brooks MD on 10/21/2024 6:27 AM SURGICAL PATHOLOGY Collected: 2:08 PM Status: COMPLETED Source: [facility] TYPE CODE TESTS RESULT OUT OF RANGE REFERENCE UNITS LAB [id number]&rpt Surgical Pathology Result Comment: [facility] [address] [place] [address] Surgical Pathology Consultation Patient Name:BEAU CASILLAS:1980 (Age: 44)Gender:FTaken:09/09/2024Reported:09/17/2024Physician(s):Elvi Bustamante M.D. ([phone])Copy To: Rec. #:[id number]: #[id number] Final Pathologic Diagnosis 1. Endocervix, curettage: Unremarkable endocervical epithelium. 2. Endometrium, curettage: Proliferative endometrium. Report Electronically Signed Out 09/17/2024Gene MD Rommel [place] [address], License number: [id number]. Clinical History Heavy periods. Gross Description 1. Received in formalin labeled[facility]NY [facility] is a pale mucoid material mixed with robles friable soft tissue bits, 0.7 x 0.4 x 0.1 cm in aggregate. The specimens are filtered and submitted in single cassette. (1, ns, [id number], m1) TB 2. Received in formalin labeled, VINNY [facility] are robles delicate to friable soft tissue bits admixed with brown hemorrhagic material and scant brown mucoid material, 2.5 x 2 x 0.3 cm in aggregate. The specimens are filtered and submitted in single cassette. Fixation Time: Tissue removed from patient: 1410 Time specimen placed in formalin: 141 Cold ischemic time: Less than 1 minute Total fixation time: 28.5 hours (1, ns, [id number], m1) TB tgb/09/10/2024NSK Specimen(s) Received 1: Endocervical curettings 2: Endometrial curettings Fee Codes(s): 1; 92826 2; 16649 XR CHEST 2 VWS Observed: 09/03/2024 2:02 PM Status: COMPLETED Source: [facility] XR CHEST 2 VWS Clinical history: Preoperative evaluation, history of asthma. Morbid obesity. Comparisons: 10/10/2020 through 12/13/2023. Findings: 2 views of the chest obtained. Heart size and pulmonary vasculature appear within normal limits. Lungs appear clear. No pleural effusion nor pneumothorax. IMPRESSION: No evidence for acute cardiopulmonary disease. Finalized by Azael Garibay MD on 09/03/2024 10:49 PM CBC AND AUTO DIFF Collected: 09/03/2024 1:43 PM Status: COMPLETED Source: [facility] TYPE CODE TESTS RESULT OUT OF RANGE REFERENCE UNITS LAB WBC(LOINC) WBC COUNT 6.3 4.0-11.0 X10E9/L LAB RBC(LOINC) RBC COUNT 5.25 High 3.80-5.20 X10E12/L LAB HGB(LOINC) HEMOGLOBIN 12.3 11.7-15.5 g/dL LAB HCT(LOINC) HEMATOCRIT 39.6 35-47 % LAB MCV(LOINC) MCV 76 Low 80-100 fL LAB MCH(LOINC) MCH 23.4 Low 27-34 pg LAB MCHC(LOINC) MCHC 31.0 Low 32-36 g/dL LAB RDW(LOINC) RDW 18.8 High 11.5-15.0 % LAB PLTC(LOINC) PLATELET COUNT 358 150-450 X10E9 /L LAB MPV(LOINC) MPV 8.2 7-12 fL LAB NEUT(LOINC) % NEUTROPHILS 65.9 % LAB LYMP(LOINC) % LYMPHOCYTES 25.1 % LAB MONO(LOINC) % MONOCYTES 5.9 % LAB EOS(LOINC) % EOSINOPHILS 2.6 % LAB BASO(LOINC) % BASOPHILS 0.5 % LAB ANEUT(LOINC) ABSOLUTE NEUTROPHIL 4.1 1.5-6.6 X10E9/L LAB ALYMP(LOINC) ABSOLUTE LYMPHOCYTE 1.6 1.0-3.5 X10E9/L LAB AMONO(LOINC) ABSOLUTE MONOCYTE 0.4 0-0.9 X10E9/L LAB AEOS(LOINC) ABSOLUTE EOSINOPHIL 0.2 0.0-0.4 X10E9/L LAB ABASO(LOINC) ABSOLUTE BASOPHIL 0.0 0.0-0.2 X10E9/L Performed By: #### EFFIE, ASHLEY #### [facility] ([id number]) [address] [place] [address], [address] [place] [address] BASIC METABOLIC PANL Collected: 09/03/2024 1:43 PM Status: COMPLETED Source: [facility] TYPE CODE TESTS RESULT OUT OF RANGE REFERENCE UNITS LAB NA(LOINC) SODIUM 138 134-146 mmol/L LAB K(LOINC) POTASSIUM 4.2 3.5-5.0 mmol/L LAB CL(LOINC) CHLORIDE 104 98-109 mmol/L LAB CO2(LOINC) CARBON DIOXIDE 28 22-32 mmol/L LAB AGAP(LOINC) ANION GAP 6 5-15 mmol/L LAB BUN(LOINC) BLOOD UREA NITROGEN 9 5-23 mg/dL LAB CRET(LOINC) CREATININE 0.86 0.40-1.00 mg/dL Result Comment: METHOD TRACE ABLE TO IDMS STANDARD LAB GLU(LOINC) GLUCOSE 124 High 65-99 mg/dL LAB CA(LOINC) CALCIUM 8.8 8.5-10.5 mg/dL LAB EGFR(LOINC) eGFR (CKD-EPI) NON-RACE DEPENDENT 86 >59 ml/min/1. 73sq.m Result Comment: Reported eGFR is based on the CKD-EPI 2020 equation that does not use a race coefficient. Performed By: #### EFFIE, ASHLEY #### [facility] ([id number]) [address] [place] [address], [address] [place] [address] SURGICAL PATHOLOGY Collected: 4 9:32 PM Status: COMPLETED Source: [facility] TYPE CODE TESTS RESULT OUT OF RANGE REFERENCE UNITS LAB [id number]&rpt Surgical Pathology Result Comment: [facility] [address] [place] [address] Surgical Pathology Consultation Patient Name:BEAU CASILLAS:1980 (Age: 44)Gender:FTaken:4Reported:07/26/2024hysician(s):Elvi Bustamante M.D. ([phone])Copy To: Rec. #:[id number]: #[id number] Final Pathologic Diagnosis 1. Endocervix - ECC: - Benign surface endocervical lining with focal squamous metaplasia (no dysplasia or neoplasia) 2. Endometrium - biopsy: - Mildly disordered proliferative endometrium (no polyps, hyperplasia or neoplasia) Report Electronically Signed Out hoover/07/26/2024Emanuel Islas MD Interpret[place] [address], License number: [id number]. Clinical History Dysfunctional uterine bleeding (DUB) N93.8. Gross Description 1. Received in formalin labeled VINNY, ECC is a plastic wired brush with robles- brown soft tissue fragments admixed with hemorrhagic and mucoid material, 2.7 x 1.2 x 0.2 cm in aggregate. The specimen is filtered and entirely submitted in a single cassette. (1, ns, [id number],m2) DM. 2. Received in formalin labeled VINNY, EMB robles-brown soft tissue fragments and base with hemorrhagic and mucoid material, 2.7 x 2.3 x 0.3 cm in aggregate. The specimen is filtered and entirely submitted in a single cassette. (1, ns, [id number],m2) DM. Fixation Time: Tissue removed from patient: 1946 Time specimen placed in formalin: 1946 Cold ischemic time: Less than 1 minute Total fixation time: 14-1/2 hours dm/07/16/2024NSK Specimen(s) Received 1: Endocervical curettings 2: Endometrial biopsy Fee Codes(s): 1; 43051 2; 26784 COMPLETE BLOOD COUNT Collected: 07/09/2024 2:49 PM Status: COMPLETED Source: [facility] TYPE CODE TESTS RESULT OUT OF RANGE REFERENCE UNITS LAB WBC(LOINC) WBC COUNT 9.0 4.0-11.0 X10E9/L LAB RBC(LOINC) RBC COUNT 5.77 High 3.80-5.20 X10E12/L LAB HGB(LOINC) HEMOGLOBIN 13.8 11.7-15.5 g/dL LAB HCT(LOINC) HEMATOCRIT 43.3 35-47 % LAB MCV(LOINC) MCV 75 Low 80-100 fL LAB MCH(LOINC) MCH 24.0 Low 27-34 pg LAB MCHC(LOINC) MCHC 32.0 32-36 g/dL LAB RDW(LOINC) RDW 16.8 High 11.5-15.0 % LAB PLTC(LOINC) PLATELET COUNT 382 150-450 X10E9 /L LAB MPV(LOINC) MPV 8.0 7-12 fL Performed By: #### 78224-7, 2842-3, 3016-3, 26152-0, 55127-9, CBC, 3024-7 #### [facility] ([id number]) [address] [place] [address], [address] [place] [address] SERUM B HCG,3RD I.S. Collected: 024 2:49 PM Status: COMPLETED Source: [facility] TYPE CODE TESTS RESULT OUT OF RANGE REFERENCE UNITS LAB HCG(LOINC) SERUM B HCG,3RD I.S. <5 mIU/mL Result Comment: NEW REFERENC E RANGE WEEKS (SINCE LMP) MIU/mL 3 WEEKS [...] trophoblastic or nontrophoblastic neoplasms. Performed By: #### 75009-7, 2842-3, 3016-3, 32874-4, 79196-2, CBC, 3024-7 #### [facility] ([id number]) [address] [address] TSH Collected: 07/09/2024 2:49 PM S tatus: COMPLETED Source: [facility] TYPE CODE TESTS RESULT OUT OF RANGE REFERENCE UNITS LAB TSH(LOINC) TSH 3.82 0.49-4.67 uIU/mL Result Comment: NEW REFERENC E RANGE FOR PEDIATRIC PATIENTS Performed By: #### 67631-3, 2842-3, 3016-3, 71837-8, 04742-6, CBC, 3024-7 #### [facility] ([id number]) [facility] [address] PROLACTIN Collected: 07/09/2024 2:49 PM S tatus: COMPLETED Source: [facility] TYPE CODE TESTS RESULT OUT OF RANGE REFERENCE UNITS LAB PROL(LOINC) PROLACTIN 25.4 3.3-26.7 ng/mL Performed By: #### 00264-1, 2842-3, 3016-3, 86827-9, 00099-5, CBC, 3024-7 #### [facility] ([id number]) [facility] [address] FREE T4 Collected: 07/09/2024 2:49 PM S tatus: COMPLETED Source: [facility] TYPE CODE TESTS RESULT OUT OF RANGE REFERENCE UNITS LAB FT4(LOINC) FREE T4 0.88 0.61-1.60 ng/dL Result Comment: NEW REFERENC E RANGE FOR PEDIATRIC PATIENTS Performed By: #### 97511-5, 2842-3, 3016-3, 88912-8, 33486-8, CBC, 3024-7 #### [facility] ([id number]) [address] [place] [address] FOLLICLE STIM HORMONE Collected: 07/09/2024 2:4 9 PM Status: COMPLETED Source: [facility] TYPE CODE TESTS RESULT OUT OF RANGE REFERENCE UNITS LAB FSH(LOINC) FOLLICLE STIM HORMONE 6.9 mIU/mL Result Comment: NORMAL FEMALE Luteal 1.8-5.1 mIU/mL Follicular 3.8-8.8 mIU/mL Mid Cycle 4.5-22.5 mIU/mL Post Sandhya 16.7-113.6 mIU/mL Performed By: #### 57032-4, 2842-3, 3016-3, 98949-2, 21978-3, CBC, 3024-7 #### [facility] ([id number]) [address] [place] [address], [address] [place] [address] LUTEINIZING HORMONE Collected: 07/09/2024 2:49 PM Status: COMPLETED Source: [facility] TYPE CODE TESTS RESULT OUT OF RANGE REFERENCE UNITS LAB LH(LOINC) LUTEINIZING HORMONE 2.6 mIU/mL Result Comment: NORMAL FEMALE Follicular 2.1-10.9 mIU/mL Mid Cycle 19.2-103 mIU/mL Luteal 1.2-12.9 mIU/mL Post [place] 10.9-58.6 mIU/mL Performed By: #### 98967-6, 2842-3, 3016-3, 55952-2, 53923-2, CBC, 3024-7 #### [facility] ([id number]) [address] [place] [address], [address] [place] [address] PELVIC WITH TRANSVAGINAL Observed: 06/24/2024 2:15 PM Status: COMPLETED Source: [facility] PELVIC WITH TRANSVAGINAL HISTORY: A 44-year-old female [...] Martin Valero MD on 06/24/2024 7:12 PM URN MACROSCOPIC JOURDAN Collected: 06/21/2024 3:16 PM Status: COMPLETED Source: [facility] TYPE CODE TESTS RESULT OUT OF RANGE REFERENCE UNITS LAB SPGRN(LOINC) SPECIFIC GRAVITY JOURDAN 1.010 1.003-1.035 LAB LESTN(LOINC) LEUKOCYTE ESTERASE JOURDAN Negative (qualifier value) NEG LAB NITN(LOINC) NITRITE JOURDAN Negative (qualifier value) NEG LAB PHURN(LOINC) PH JOURDAN 6.0 5.0-8.5 LAB PRURN(LOINC) PROTEIN JOURDAN Negative (qualifier value) NEG mg/dL LAB GLURN(LOINC) GLUCOSE JOURDAN Negative (qualifier value) NEG mg/dL LAB KETN(LOINC) KETONES JOURDAN Negative (qualifier value) NEG mg/dL LAB UROBN(LOINC) UROBILINOGEN JOURDAN 0.2 <1.1 eu /dL LAB BILEN(LOINC) BILIRUBIN JOURDAN Negative (qualifier value) NEG LAB BLURN(LOINC) BLOOD/HGB JOURDAN Negative (qualifier value) NEG Performed By: #### NUM #### [facility] ([id number]) [address] [place] [address], [place] [address] CT ABDOMEN AND PELVIS W CONT Observed: 06/21/2024 2:43 PM Status: COMPLETED Source: [facility] CT ABDOMEN AND PELVIS W CONT CT [...] Parish Bradley MD on 06/21/2024 3:20 PM CBC AND AUTO DIFF Collected: 06/21/2024 1:39 PM Status: COMPLETED Source: [facility] TYPE CODE TESTS RESULT OUT OF RANGE REFERENCE UNITS LAB WBC(LOINC) WBC COUNT 6.4 4.0-11.0 X10E9/L LAB RBC(LOINC) RBC COUNT 4.95 3.80-5.20 X10E12/L LAB HGB(LOINC) HEMOGLOBIN 12.0 11.7-15.5 g/dL LAB HCT(LOINC) HEMATOCRIT 37.6 35-47 % LAB MCV(LOINC) MCV 76 Low 80-100 fL LAB MCH(LOINC) MCH 24.2 Low 27-34 pg LAB MCHC(LOINC) MCHC 31.8 Low 32-36 g/dL LAB RDW(LOINC) RDW 16.0 High 11.5-15.0 % LAB PLTC(LOINC) PLATELET COUNT 408 150-450 X10E9 /L LAB MPV(LOINC) MPV 7.6 7-12 fL LAB NEUT(LOINC) % NEUTROPHILS 57.2 % LAB LYMP(LOINC) % LYMPHOCYTES 29.8 % LAB MONO(LOINC) % MONOCYTES 7.9 % LAB EOS(LOINC) % EOSINOPHILS 4.2 % LAB BASO(LOINC) % BASOPHILS 0.9 % LAB ANEUT(LOINC) ABSOLUTE NEUTROPHIL 3.7 1.5-6.6 X10E9/L LAB ALYMP(LOINC) ABSOLUTE LYMPHOCYTE 1.9 1.0-3.5 X10E9/L LAB AMONO(LOINC) ABSOLUTE MONOCYTE 0.5 0-0.9 X10E9/L LAB AEOS(LOINC) ABSOLUTE EOSINOPHIL 0.3 0.0-0.4 X10E9/L LAB ABASO(LOINC) ABSOLUTE BASOPHIL 0.1 0.0-0.2 X10E9/L Performed By: #### PINR, CMP , CBCA, 3040-3, 53296-6 #### [facility] ([id number]) [address] [place] [address] PROTIME AND INR Collected: 06/21/2024 1:39 PM Status: COMPLETED Source: [facility] TYPE CODE TESTS RESULT OUT OF RANGE REFERENCE UNITS LAB PROX(LOINC) PROTIME 11.6 9.8-13.2 sec Result Comment: NEW REFERENC E RANGE LAB INR(LOINC) INR 1.0 0.8-1.1 Performed By: #### PINR, CMP , CBCA, 3040-3, 82487-7 #### [facility] ([id number]) [address] [place] [address] APTT Collected: 06/21/2024 1:39 PM S tatus: COMPLETED Source: [facility] TYPE CODE TESTS RESULT OUT OF RANGE REFERENCE UNITS LAB PTT(LOINC) APTT 34 26-37 sec Result Comment: NEW REFERENC E RANGE Performed By: #### PINR, CMP , CBCA, 3040-3, 77409-9 #### [facility] ([id number]) [address] [place] [address], [place] [address] COMPREHENSIVE METABOLIC PANEL Collected: 2023 1:39 PM Status: COMPLETED Source: [facility] TYPE CODE TESTS RESULT OUT OF RANGE REFERENCE UNITS LAB NA(LOINC) SODIUM 136 134-146 mmol/L LAB K(LOINC) POTASSIUM 3.8 3.5-5.0 mmol/L LAB CL(LOINC) CHLORIDE 103 98-109 mmol/L LAB CO2(LOINC) CARBON DIOXIDE 24 22-32 mmol/L LAB AGAP(LOINC) ANION GAP 9 5-15 mmol/L LAB BUN(LOINC) BLOOD UREA NITROGEN 10 5-23 mg/dL LAB CRET(LOINC) CREATININE 0.68 0.40-1.00 mg/dL Result Comment: METHOD TRACE ABLE TO IDMS STANDARD LAB GLU(LOINC) GLUCOSE 108 High 65-99 mg/dL LAB CA(LOINC) CALCIUM 9.1 8.5-10.5 mg/dL LAB TP(LOINC) TOTAL PROTEIN 7.5 6.0-8.0 g/dL LAB ALB(LOINC) ALBUMIN 4.1 3.2-5.3 g/dL LAB ALK(LOINC) ALKALINE PHOSPHATASE 71 39-130 U/L LAB AST(LOINC) AST 34 0-41 U/L LAB ALT1(LOINC) ALT 44 High 0-31 U/L LAB TBIL(LOINC) BILIRUBIN,TOTAL 0.5 0.3-1.2 mg/d L LAB EGFR(LOINC) eGFR (CKD-EPI) NON-RACE DEPENDENT >90 >59 ml/min/1 .73sq.m Result Comment: Reported eGFR is based on the CKD-EPI 2020 equation that does not use a race coefficient. Performed By: #### PINR, CMP , CBCA, 3040-3, 89228-8 #### [facility] ([id number]) [address] [place] [address] LIPASE Collected: 06/21/2024 1:39 PM S tatus: COMPLETED Source: [facility] TYPE CODE TESTS RESULT OUT OF RANGE REFERENCE UNITS LAB LIPA(LOINC) LIPASE 41 High 17-40 U/L Performed By: #### PINR, CMP , CBCA, 3040-3, 13790-2 #### [facility] ([id number]) [address] [place] [address] HIGH RISK HPV W/CHANDRAKANT Observed: 4 4:30 AM Status: COMPLETED Source: [facility] HPV SPECIMEN TYPE ThinPrep HPV 16 Negative (qualifier value) HPV 18 Negative (qualifier value) OTHER HIGH RISK HPV Negative (qualifier value) HPV types 31,33,35,39,45,52,56,58,59,66 and 68 DNA were undetectable. Performed By: #### 17774-0 # ### [facility] ([id number]) [address] [place] [address] [facility] ([id number]) [address] [place] [address], [address] [place] [address] CYTOLOGY Collected: 4 4:30 AM Status: COMPLETED Source: [facility] TYPE CODE TESTS RESULT OUT OF RANGE REFERENCE UNITS LAB A17-71024&rpt Cytology Normal Result Comment: [facility] [address] [place] [address] Gynecologic Cytology Consultation Patient Name:BEAU CASILLAS:1980 (Age: 44)Gender:FTaken:4Reported:07/05/2024hysician(s):Gisela Martinez, DEVAN- [facility] ([phone])Copy To: Rec. #:[id number]: #[id number] Final Cytologic Interpretation ThinPrep Pap Test (Cervical): Satisfactory for evaluation. A transformation zone component is not identified via imaging-assisted review, using M2G Thin Prep Imaging System, within 22 microscopic castillo of view. NEGATIVE FOR INTRAEPITHELIAL LESION OR MALIGNANCY. [facility]/07/05/2024 [facility], [address] [place] [address], License number: [id number]. 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 The Pap test is primarily effective for the diagnosis and prevention of squamous cell carcinoma. Regular screening is critical for prevention. ThinPrep liquid-based slides, which meet the Manager Department criteria for automated screening, have been screened by the ThinPrep Imaging System (as of 04/16/07) along with an additional manual rescreening by a solar sales manager and, if indicated, by a pathologist. COMPLETE BLOOD COUNT Collected: 06/17/2024 3:09 PM Status: COMPLETED Source: [facility] TYPE CODE TESTS RESULT OUT OF RANGE REFERENCE UNITS LAB WBC(LOINC) WBC COUNT 12.1 High 4.0-11.0 X10E9/L LAB RBC(LOINC) RBC COUNT 5.45 High 3.80-5.20 X10E12/L LAB HGB(LOINC) HEMOGLOBIN 13.2 11.7-15.5 g/dL LAB HCT(LOINC) HEMATOCRIT 41.8 35-47 % LAB MCV(LOINC) MCV 77 Low 80-100 fL LAB MCH(LOINC) MCH 24.2 Low 27-34 pg LAB MCHC(LOINC) MCHC 31.6 Low 32-36 g/dL LAB RDW(LOINC) RDW 16.2 High 11.5-15.0 % LAB PLTC(LOINC) PLATELET COUNT 460 High 150-450 X10E9 /L LAB MPV(LOINC) MPV 8.4 7-12 fL Performed By: #### 20650-7, 12445-5, HA1C, IMGB, 15145-7, CBC, THYR, 6771-0, 2132-9 #### [facility] ([id number]) [address] [facility], [address] [place] [address] #### 70539-3 #### [facility] ([id number]) [address] [place] [address], [place] [address] EOSINOPHIL, TOTAL Collected: 06/17/2024 3:09 PM Status: COMPLETED Source: [facility] TYPE CODE TESTS RESULT OUT OF RANGE REFERENCE UNITS LAB EOCTB(LOINC) EOSINOPHIL, TOTAL 0.2 0.0-0.4 X10E9/L Performed By: #### 25499-8, 94996-5, HA1C, IMGB, 49644-0, CBC, THYR, 6771-0, 2132-03 #### [facility] ([id number]) [address] [place] [address], [address] [address] #### 39169-9 #### [facility] ([id number]) [address] [place] [address] HGB A1C (GLYCO-HGB) Collected: 06/17/2024 3:09 PM Status: COMPLETED Source: [facility] TYPE CODE TESTS RESULT OUT OF RANGE REFERENCE UNITS LAB HBA1C(LOINC) HEMOGLOBIN A1C 7.5 High 4.4-5.6 % Result Comment: NOTE ADA Guidelines Result HgbA1c Normal : less than 5.7 % Prediabetes : 5.7 % to 6.4 % Diabetes : > 6.4 % Use with caution in patients with abnormal hemoglobin variants as the half-life of red blood cells and in vivo glycation rates are affected. LAB EAG(LOINC) AVERAGE GLUCOSE 169 mg/dL Performed By: #### 22796-2, 92056-2, HA1C, IMGB, 92617-4, CBC, THYR, 6771-0, 2132-03 #### [facility] ([id number]) [address] [place] [address] #### 29601-6 #### [facility] ([id number]) [address] [place] [address] ALPHA 1 ANTITRYPSIN Collected: 06/17/2024 3:09 PM Status: COMPLETED Source: [facility] TYPE CODE TESTS RESULT OUT OF RANGE REFERENCE UNITS LAB AAT(LOINC) ALPHA 1 ANTITRYPSIN 193 83-199 mg/dL Performed By: #### 02312-8, 86438-9, HA1C, IMGB, 18057-2, CBC, THYR, 6771-0, 2132-03 #### [facility] ([id number]) [address] [place] [address], [address] [place] [address] #### 65486-4 #### [facility] ([id number]) [address] [place] [address] IMMUNOGLOBULINS Collected: 3:09 PM Status: COMPLETED Source: [facility] TYPE CODE TESTS RESULT OUT OF RANGE REFERENCE UNITS LAB IGA(LOINC) IGA 181 68-378 mg/dL LAB IGM(LOINC) IGM 165 45-281 mg/dL LAB IGG(LOINC) IGG 223 854-8547 mg/dL Performed By: #### 94065-0, 03413-1, HA1C, IMGB, 79053-0, CBC, THYR, 6771-0, 2132-03 #### [facility] ([id number]) [address] [place] [address], [place] [address] #### 50678-7 #### [facility] ([id number]) [address] [place] [address] THYROID PROFILE Collected: 06/17/2024 3:09 PM Status: COMPLETED Source: [facility] TYPE CODE TESTS RESULT OUT OF RANGE REFERENCE UNITS LAB TSH(LOINC) TSH 4.33 0.49-4.67 uIU/mL LAB FT4(LOINC) FREE T4 1.06 0.61-1.60 ng/dL Performed By: #### 82709-6, 47427-6, HA1C, IMGB, 07597-5, CBC, THYR, 6771-0, 2132-03 #### [facility] ([id number]) [address] [place] [address], [address] [place] [address] #### 37750-9 #### [facility] ([id number]) [address] [place] [address] VITAMIN B12 Collected: 06/17/2024 3:09 PM S tatus: COMPLETED Source: [facility] TYPE CODE TESTS RESULT OUT OF RANGE REFERENCE UNITS LAB B12(LOINC) VITAMIN B12 460 180-914 pg/mL Performed By: #### 87705-4, 28516-6, HA1C, IMGB, 52118-3, CBC, THYR, 6771-0, 2132-03 #### [facility] ([id number]) [address] [place] [address], [address] [address] #### 67341-0 #### [facility] ([id number]) [address] [place] [address] RODRIGO SCREEN W/REFLEX Collected: 06/17/2024 3:09 PM Status: COMPLETED Source: [facility] TYPE CODE TESTS RESULT OUT OF RANGE REFERENCE UNITS LAB RODRIGO(LOINC) RODRIGO Screen w/reflex Negative (qualifier value) NEG Result Comment: Testing performed using multiplex flow immunoassay. Eleven different antigens associated with systemic autoimmune diseases (dsDNA,Sm,Sm/DEBT COLLECTOR,DEBT COLLECTOR,Chromatin, SSA,SSB,Maria Guadalupe-1,Scl70,Ribo P,Centromere B) are included in this screening test. Performed By: #### 56923-5, 49217-5, HA1C, IMGB, 66813-9, CBC, THYR, 6771-0, 2132-03 #### [facility] ([id number]) [address] [place] [address], [address] [place] [address] #### 46702-8 #### [facility] ([id number]) [address] [place] [address] LYME TOTAL Collected: 06/17/2024 3:09 PM S tatus: COMPLETED Source: [facility] TYPE CODE TESTS RESULT OUT OF RANGE REFERENCE UNITS LAB LYMET(LOINC) LYME TOTAL <0.2 <0.9 A1 Result Comment: Interpretation-------- <0.9 Negative 0.9 - 1.0 Equivocal >1.0 Positive No serological evidence of Borrelia infection.A non-reactive result does not exclude the possibility of Borrelia infection and cannot exclude early infection with B.burgdorferi. If Lyme borreliosis is suspected, a second sample should be collected and tested 2-4 weeks later. Performed By: #### 66318-3, 27979-9, HA1C, IMGB, 98035-9, CBC, THYR, 6771-0, 2132-9 #### [facility] ([id number]) [address] [facility], [address] [place] [address] #### 37870-8 #### [facility] ([id number]) [address] [place] [address], [place] [address] ALPHA 1 ANTITRYPSIN/PHENOTYPE Collected : 06/17/2024 3:09 PM Status: COMPLETED Source: [facility] TYPE CODE TESTS RESULT OUT OF RANGE REFERENCE UNITS LAB A1ATPP(LOINC) Zxggn-8-Jiip trypsin Phenotype MM bands Result Comment: NOTE A single M isoform is detected. In the context of a normal ufusv-9-zhgpcpzejkb concentration, this is consistent with an MM phenotype. ADDITIONAL INFORMATION Method: Isoelectric Focusing, This assay identifies the phenotype of the circulating coltd-3-lraakjtfbip (A1A) protein. If the patient is on replacement therapy or has been recently transfused, the phenotype will detect patient and replacement or transfused plasma A1A protein. This test also cannot detect a null allele which could be responsible for an A1A deficiency. LAB ATATPR(LOINC) Cbvro-6-Pjgt trypsin, S 180 100 - 190 mg/dL Result Comment: NOTE ADDITIONAL INFORMATION Method: Nephelometry Test Performed by: [facility] [address] [place] [address] Order Takers Supervisor: Arabella Trejo Ph.D.; CLIA# [id number] Performed By: #### 52373-4, 43447-5, HA1C, IMGB, 51284-0, CBC, THYR, 6771-0, 2132-9 #### [facility] ([id number]) [address] [facility], [address] [place] [address] #### 87645-7 #### [facility] ([id number]) [address] [place] [address], [place] [address] RESPIRATORY PANEL Collected: 06/17/2024 3:09 PM Status: COMPLETED Source: [facility] TYPE CODE TESTS RESULT OUT OF RANGE REFERENCE UNITS LAB D1A(LOINC) DERMATOPH PTERONYSS <0.10 <0.10 kU/L Result Comment: Class 0: Nor mal LAB D2A(LOINC) DERMATOPH FARINAE <0.10 <0.10 kU/L Result Comment: Class 0: Nor mal LAB E5(LOINC) DOG DANDER <0.10 <0.10 kU/L Result Comment: Class 0: Nor mal LAB E1(LOINC) CAT DANDER <0.10 <0.10 kU/L Result Comment: Class 0: Nor mal LAB G2A(LOINC) BERMUDA GRASS <0.10 <0.10 kU/L Result Comment: Class 0: Nor mal LAB G6A(LOINC) ANAI <0.10 <0.10 kU/L Result Comment: Class 0: Nor mal LAB I6(LOINC) COCKROACH 0.14 High <0.10 kU/L Result Comment: Class 0/1: L ow level of Allergy, ongoing sensitization LAB M1A(LOINC) PENICILLIUM CHRYSOGENUM <0.10 <0.10 kU/L Result Comment: Class 0: Nor mal LAB M2(LOINC) CLADOSPORIUM HERB <0.10 <0.10 kU/L Result Comment: Class 0: Nor mal LAB M3A(LOINC) ASPERGILLUS FUMIGATUS <0.10 <0.10 kU/L Result Comment: Class 0: Nor mal LAB M6(LOINC) ALTERNARIA ALTERNATA <0.10 <0.10 kU/L Result Comment: Class 0: Nor mal LAB T1A(LOINC) BOX ELDER <0.10 <0.10 kU/L Result Comment: Class 0: Nor mal LAB T10A(LOINC) WALNUT TREE POLLEN <0.10 <0.10 kU/L Result Comment: Class 0: Nor mal LAB T11(LOINC) MAPLE LEAF [place] <0.10 <0.10 kU/L Result Comment: Class 0: Nor mal LAB T14A(LOINC) COTTONWOOD <0.10 <0.10 kU/L Result Comment: Class 0: Nor mal LAB T15(LOINC) WHITE LAZARO <0.10 <0.10 kU/L Result Comment: Class 0: Nor mal LAB T22(LOINC) PECAN HICKORY TREE <0.10 <0.10 kU/L Result Comment: Class 0: Nor mal LAB T3A(LOINC) COMMON SILVER BIRCH <0.10 <0.10 kU/L Result Comment: Class 0: Nor mal LAB T6(LOINC) MOUNTAIN JUNIPER <0.10 <0.10 kU/L Result Comment: Class 0: Nor mal LAB T7A(LOINC) OAK <0.10 <0.10 kU/L Result Comment: Class 0: Nor mal LAB T70(LOINC) MULBERRY TREE <0.10 <0.10 kU/L Result Comment: Class 0: Nor mal LAB T8(LOINC) ELM <0.10 <0.10 kU/L Result Comment: Class 0: Nor mal LAB W1(LOINC) COMMON RAGWEED <0.10 <0.10 kU/L Result Comment: Class 0: Nor mal LAB W11(LOINC) S[place] RICK THISTLE <0.10 <0.10 kU/L Result Comment: Class 0: Nor mal LAB W14(LOINC) COMMON PIGWEED <0.10 <0.10 kU/L Result Comment: Class 0: Nor mal LAB W16(LOINC) ROUGH MARSHELDER <0.10 <0.10 kU/L Result Comment: Class 0: Nor mal LAB W18(LOINC) SHEEP SORREL <0.10 <0.10 kU/L Result Comment: Class 0: Nor mal LAB W20(LOINC) NETTLE <0.10 <0.10 kU/L Result Comment: Class 0: Nor mal LAB IGE(LOINC) IGE 31 0-165 IU/mL LAB G8A(LOINC) ME[place]OW GRASS [place] GURPREET <0.10 <0.10 kU/L Result Comment: Class 0: Nor mal LAB W10(LOINC) GOOSEFOOT LITTLE QTR <0.10 <0.10 kU/L Result Comment: Class 0: Nor mal LAB W13(LOINC) COCKLEBUR <0.10 <0.10 kU/L Result Comment: Class 0: Nor mal LAB W6(LOINC) MUGWORT <0.10 <0.10 kU/L Result Comment: Class 0: Nor mal LAB G10A(LOINC) RUSS GRASS <0.10 <0.10 kU/L Result Comment: Class 0: Nor mal LAB E72(LOINC) MOUSE URINE PROTEINS <0.10 <0.10 kU/L Result Comment: Class 0: Nor mal Performed By: #### RAP #### [facility] ([id number]) [address] [place] [address], [facility] [address] [place] [address] HERPES SIMPLEX VIRAL PCR Observed: 06/12/2024 2:32 PM Status: COMPLETED Source: [facility] SPECIMEN SOURCE VAGINAL LESION HERPES SIMPLEX 1 PCR Negative (qualifier value) HSV 1 DNA Not Detected HERPES SIMPLEX 2 PCR Negative (qualifier value) HSV 2 DNA Not Detected Performed By: #### HSV12 ### # [facility] ([id number]) [address] [place] [address], [address] [place] [address] US BREAST LT LIMITED Observed: 1:28 PM Status: COMPLETED Source: [facility] US BREAST LT LIMITED EXAM: US BREAST LT LIMITED, 03/05/2024 1:28 [...] 03/05/2024 2:12 PM 1 MAMM 1 YR MAMM DIAGNOSTIC BILATERAL W CAD Observed: 03/05/2024 12:50 PM Status: COMPLETED Source: [facility] MAMM DIAGNOSTIC BILATERAL W CAD EXAM: MAMM [...] 1:43 PM 1 b MAMM 1 YR MR CERVICAL SPINE W WO CONT Observed: 02/27/2024 1:38 PM Status: COMPLETED Source: [facility] MR CERVICAL SPINE W WO CONT CLINICAL [...] Ant Early MD on 02/27/2024 3:15 PM MR ORBIT W WO CONT Observed: 02/27/2024 1:37 PM Status: COMPLETED Source: [facility] MR ORBIT W WO CONT STUDY: MR [...] by Aneesh Mendez on 02/28/2024 1:46 PM MR BRAIN W WO CONT Observed: 02/27/2024 1:22 PM Status: COMPLETED Source: [facility] MR BRAIN W WO CONT MR BRAIN [...] clear. Temporal bones are clear. IMPRESSION: * Zfxx-wk-rceelpey burden of deep white matter signal changes, similar to prior, and suggestive of a demyelinating process. No acutely enhancing lesions. 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 MR orbits is reported separately. Approved by Lcuila Tapia MD on 02/28/2024 8:31 AM Aneesh Barlow have personally reviewed the image(s) and agree with and/or edited the report Finalized by Aneesh Mendez on 02/28/2024 11:[address] BRAIN WO CONT Observed: 01/30/2024 4:17 PM Status: COMPLETED Source: [facility] CT BRAIN WO CONT HISTORY: A 43-year-old [...] Martin Valero MD on 01/30/2024 4:36 PM FECAL PANC ELASTASE Collected: 01/23/2024 4:[address] [facility]: F Source: [facility] TYPE CODE TESTS RESULT OUT OF RANGE REFERENCE UNITS LAB PEF(LOINC) Pancreatic Elastase >800 >=100 ug/g Result Comment: (NOTE) REFERENCE INTERVAL: Pancreatic Elastase Fecal by Immunoassay Less than 100 ug/g............Severe insufficiency 100 - 199 ug/g................Moderate insufficiency 200 ug/g or greater...........Normal INTERPRETIVE INFORMATION: Pancreatic Elastase Fecal by Immunoassay Reference intervals do not apply for infants less than one month old. Performed By: [facility] [address] [place] [address] Customer Loyalty Representative: Landon Winters MD, PhD CLIA Number: [id number] Performed By: #### APEF #### [facility] [address] [place] [address] Order Takers Supervisor: Casey Howard MD URINE NURSING Collected: 01/03/2024 9 :28 PM Status: COMPLETED Source: [facility] TYPE CODE TESTS RESULT OUT OF RANGE REFERENCE UNITS LAB NUCG(LOINC) URINE NURSING Negative (qualifier value) NEG Performed By: #### [id number] ## ## [facility] ([id number]) [address] [place] [address], [place] [address] URN MACROSCOPIC JOURDAN Collected: 01/03/2024 9:27 PM Status: COMPLETED Source: [facility] TYPE CODE TESTS RESULT OUT OF RANGE REFERENCE UNITS LAB SPGRN(LOINC) SPECIFIC GRAVITY JOURDAN 1.025 1.003-1.035 LAB LESTN(LOINC) LEUKOCYTE ESTERASE JOURDAN Negative (qualifier value) NEG LAB NITN(LOINC) NITRITE JOURDAN Negative (qualifier value) NEG LAB PHURN(LOINC) PH JOURDAN 6.0 5.0-8.5 LAB PRURN(LOINC) PROTEIN JOURDAN Negative (qualifier value) NEG mg/dL LAB GLURN(LOINC) GLUCOSE JOURDAN Negative (qualifier value) NEG mg/dL LAB KETN(LOINC) KETONES JOURDAN Negative (qualifier value) NEG mg/dL LAB UROBN(LOINC) UROBILINOGEN JOURDAN 0.2 <1.1 eu/dL LAB BILEN(LOINC) BILIRUBIN JOURDAN Negative (qualifier value) NEG LAB BLURN(LOINC) BLOOD/HGB JOURDAN Trace Abnormal NEG Performed By: #### NUM #### [facility] ([id number]) [address] [place] [address], [place] [address] CT ABDOMEN AND PELVIS WO CONT Observed: 01/03/2024 9:24 PM Status: COMPLETED Source: [facility] CT ABDOMEN AND PELVIS WO CON T CLINICAL INFORMATION: Acute abdominal pain COMPARISON: CT [...] Kaleb Lawson MD on 01/03/2024 10:20 PM COMPREHENSIVE METABOLIC PANEL Collected: 2023 9:07 PM Status: COMPLETED Source: [facility] TYPE CODE TESTS RESULT OUT OF RANGE REFERENCE UNITS LAB NA(LOINC) SODIUM 135 134-146 mmol/L LAB K(LOINC) POTASSIUM 4.0 3.5-5.0 mmol/L LAB CL(LOINC) CHLORIDE 101 98-109 mmol/L LAB CO2(LOINC) CARBON DIOXIDE 22 22-32 mmol/L LAB AGAP(LOINC) ANION GAP 12 5-15 mmol/L LAB BUN(LOINC) BLOOD UREA NITROGEN 14 5-23 mg/dL LAB CRET(LOINC) CREATININE 0.67 0.40-1.00 mg/dL Result Comment: METHOD TRACE ABLE TO IDMS STANDARD LAB GLU(LOINC) GLUCOSE 165 High 65-99 mg/dL LAB CA(LOINC) CALCIUM 8.8 8.5-10.5 mg/dL LAB TP(LOINC) TOTAL PROTEIN 7.8 6.0-8.0 g/dL LAB ALB(LOINC) ALBUMIN 4.3 3.2-5.3 g/dL LAB ALK(LOINC) ALKALINE PHOSPHATASE 77 39-130 U/L LAB AST(LOINC) AST 24 0-41 U/L LAB ALT1(LOINC) ALT 33 High 0-31 U/L LAB TBIL(LOINC) BILIRUBIN,TOTAL 0.3 0.3-1.2 mg/d L LAB EGFR(LOINC) eGFR (CKD-EPI) NON-RACE DEPENDENT >90 >59 ml/min/1 .73sq.m Result Comment: Reported eGFR is based on the CKD-EPI 202 equation that does not use a race coefficient. Performed By: #### CMP, CBCA #### [facility] ([id number]) [address] [place] [address], [place] [address] CBC AND AUTO DIFF Collected: 01/03/2024 9:07 PM Status: COMPLETED Source: [facility] TYPE CODE TESTS RESULT OUT OF RANGE REFERENCE UNITS LAB WBC(LOINC) WBC COUNT 8.3 4.0-11.0 X10E9/L LAB RBC(LOINC) RBC COUNT 5.00 3.80-5.20 X10E12/L LAB HGB(LOINC) HEMOGLOBIN 13.1 11.7-15.5 g/dL LAB HCT(LOINC) HEMATOCRIT 40.0 35-47 % LAB MCV(LOINC) MCV 80 80-100 fL LAB MCH(LOINC) MCH 26.3 Low 27-34 pg LAB MCHC(LOINC) MCHC 32.8 32-36 g/dL LAB RDW(LOINC) RDW 17.0 High 11.5-15.0 % LAB PLTC(LOINC) PLATELET COUNT 355 150-450 X10E9 /L LAB MPV(LOINC) MPV 8.1 7-12 fL LAB NEUT(LOINC) % NEUTROPHILS 70.6 % LAB LYMP(LOINC) % LYMPHOCYTES 19.3 % LAB MONO(LOINC) % MONOCYTES 5.7 % LAB EOS(LOINC) % EOSINOPHILS 3.5 % LAB BASO(LOINC) % BASOPHILS 0.9 % LAB ANEUT(LOINC) ABSOLUTE NEUTROPHIL 5.8 1.5-6.6 X10E9/L LAB ALYMP(LOINC) ABSOLUTE LYMPHOCYTE 1.6 1.0-3.5 X10E9/L LAB AMONO(LOINC) ABSOLUTE MONOCYTE 0.5 0-0.9 X10E9/L LAB AEOS(LOINC) ABSOLUTE EOSINOPHIL 0.3 0.0-0.4 X10E9/L LAB ABASO(LOINC) ABSOLUTE BASOPHIL 0.1 0.0-0.2 X10E9/L Performed By: #### CMP, CBCA #### [facility] ([id number]) [address] [place] [address], [place] [address] US ABDOMEN LIMITED Observed: 01/02/2024 5:49 PM Status: F Source: [facility] EXAMINATION: RIGHT UPPER QUADRANT ULTRASOUND 01/02/2024 3:13 pm COMPARISON: None. HISTORY: ORDERING SYSTEM PROVIDED HISTORY: [facility] abdominal pain TECHNOLOGIST PROVIDED HISTORY: This procedure can be scheduled via [facility]. Specify organ?->LIVER Specify organ?->PANCREAS FINDINGS: LIVER: The [...] by: Alfonso Ramos DO 01/02/24 Final result CBC WITH DIFF Collected: 12/26/2023 3:32 PM Status: F Source: [facility] TYPE CODE TESTS RESULT OUT OF RANGE REFERENCE UNITS LAB WBC(LOINC) WBC Count 6.9 3.5-11.3 k/uL LAB RBC(LOINC) RBC Count 5.19 High 3.95-5.11 m/uL LAB HGB(LOINC) Hemoglobin 13.4 11.9-15.1 g/dL LAB HCT(LOINC) Hematocrit 43.5 36.3-47.1 % LAB MCV(LOINC) MCV 83.8 82.6-102.9 fL LAB MCH(LOINC) MCH 25.8 25.2-33.5 pg LAB MCHC(LOINC) MCHC 30.8 28.4-34.8 g/dL LAB RDW(LOINC) RDW 15.9 High 11.8-14.4 % LAB PLT(LOINC) Platelet Count 341 138-453 k/uL LAB MPVX(LOINC) MPV 9.8 8.1-13.5 fL LAB NRBCS(LOINC) NRBC Automated 0.0 0.0 per 100 WBC LAB SEG(LOINC) Neutrophil (Seg) 62 36-65 % LAB LYM(LOINC) Lymphocyte 27 24-43 % LAB MON(LOINC) Monocyte 7 3-12 % LAB EO(LOINC) Eosinophil 4 1-4 % LAB BASO(LOINC) Basophil 0 0-2 % LAB IGRAN(LOINC) Immature Granulocyte 0 0 % LAB ASEG(LOINC) Abs.Neutrophil (Seg) 4.18 1.50-8.10 k/uL LAB ALYM(LOINC) Abs. Lymph 1.87 1.10-3.70 k/uL LAB AMONO(LOINC) Abs. Monocyte 0.51 0.10-1.20 k/u L LAB AEO(LOINC) Abs. Eosinophil 0.29 0.00-0.44 k/u L LAB ABASO(LOINC) Abs. Basophil 0.03 0.00-0.20 k/u L LAB AIGRAN(LOINC) Abs.Imm.Granulo cyte <0.03 0.00-0.30 k/uL Performed By: #### CPBILC, C DP, LIP #### [facility] [address] [place] [address] Order Takers Supervisor: Allison Zavaleta MD #### CELP #### [facility] [address] [place] [address] Order Takers Supervisor: Zac Servin MD COMP METAB W/BILI SC Collected: 024 3:32 PM Status: F Source: [facility] TYPE CODE TESTS RESULT OUT OF RANGE REFERENCE UNITS LAB NA(LOINC) NA (Sodium) 138 135-144 mmol/L LAB K(LOINC) K (Potassium) 4.1 3.7-5.3 mmol/L LAB CL(LOINC) Chloride 101 98-107 mmol/L LAB HCO(LOINC) CO2 27 20-31 mmol/L LAB GAP(LOINC) Anion Gap 10 9-17 mmol/L LAB GLU(LOINC) Glucose 135 High 70-99 mg/dL LAB BUN(LOINC) BUN (Urea N) 12 6-20 mg/dL LAB CRE(LOINC) Creatinine 0.7 0.5-0.9 mg/dL LAB EGFR(LOINC) eGFR >90 >60 mL/min/1 .73m2 Result Comment: These results are not intended [...] following therapy that affects renal tubular secretion. LAB CA(LOINC) Calcium 8.9 8.6-10.4 mg/dL LAB TP(LOINC) Protein, Total 7.4 6.4-8.3 g/dL LAB ALB(LOINC) Albumin 4.3 3.5-5.2 g/dL LAB AG(LOINC) Albumin/Glob Ratio 1.4 1.0-2.5 LAB TBIL(LOINC) Bilirubin, Total 0.3 0.3-1.2 mg/dL LAB DBILI([facility]) Bilirubin, Direct <0.1 <0.3 mg/dL LAB IBIL([facility]) Bilirubin, Indirect Can not be calculated 0.0-1.0 mg/dL LAB ALP([facility]) Alkaline Phos 91 35-104 U/L LAB ALT([facility]) ALT 22 5-33 U/L LAB AST([facility]) AST 16 <32 U/L Performed By: #### CPBILC, C DP, LIP #### [facility] [address] [place] [address] [place] [address] Order Takers Supervisor: Allison Zavaleta MD #### CELP #### [address] [address] Order Takers Supervisor: Zac Servin MD LIPASE Collected: 3:32 PM Status: F Source: [facility] TYPE CODE TESTS RESULT OUT OF RANGE REFERENCE UNITS LAB LIP([facility]) Lipase 36 13-60 U/L Performed By: #### CPBILC, C DP, LIP #### [address] [place] [address] Order Takers Supervisor: Allison Zavaleta MD #### CELP #### [address] [address] Order Takers Supervisor: Zac Servin MD CELIAC DISEASE PANEL Collected: 12/26/2023 3:32 PM S tatus: F Source: [facility] TYPE CODE TESTS RESULT OUT OF RANGE REFERENCE UNITS LAB GDAIGA(INC) Gliadin Deam Pep IgA 1.1 <7.0 U/mL Result Comment: CELIAC INTERPRETATION <7.0 Negative 7.0-10.0 Equivocal >10.0 Positive units: U/mL LAB GDAIGG(LOINC) Gliadin Deam Pep IgG <0.4 <7.0 U/mL Result Comment: CELIAC INTERPRETATION <7.0 Negative 7.0-10.0 Equivocal >10.0 Positive units: U/mL LAB IGA(LOINC) IgA 188 70-400 mg/dL LAB TTIGA([facility]) Tiss Transglutam IgA 0.4 <7.0 U/mL Result Comment: CELIAC INTERPRETATION <7.0 Negative 7.0-10.0 Equivocal >10.0 Positive units: U/mL Performed By: #### Gino CHING DP, ANA MARIA #### [facility] [address] [place] [address] Order Takers Supervisor: Allison Zavaleta MD #### JESSIE #### [facility] [address] [place], [place] [id number] Order Takers Supervisor: Zac Servin MD ALLERGIES DATE TYPE / CODE NAME / CODE REACTION SEVERITY SOURCE 03/26/2020 DRUG INGREDI/[id number](S NOMED CT) [facility] ENCOUNTERS ADMIT/DISCHARGE ACCOUNT NUMBER ADMITTING ENCOUNTER CLASS LOCATION SOURCE 12/16/2024/12/18/19 [id number] GIANLUCA PANDYA Ambulatory Building: H_OBSERRoom : [id number]: [address] [place] [address] 10/18/2024/10/19/19 [id number] [facility] 10/08/2024/10/09/19 25 [id number] [address] [place] [address] Ambulatory [facility]PG 09/09/2024/09/09/19 25 [id number] Inpatient Encounter Building:[facility] 09/09/2024/09/09/19 25 [id number] Inpatient Encounter Building:[facility] 09/09/2024/09/09/19 25 [id number] ELVI BUSTAMANTE [facility] POOLBed: POOL [facility] 09/03/2024/09/03/19 25 [id number] Ambulatory Building:[facility]XR [facility] 09/03/2024/09/03/19 25 [id number] Ambulatory Building: M_LAB [facility] 09/03/2024/09/03/19 25 [id number] [facility] 07/30/2024/08/01/19 25 [id number] Ambulatory Buildin 118 [facility] Ambulatory [facility] 07/15/2024/07/15/20 24 [id number] Ambulatory Building: M_LAB [facility] 07/15/2024/07/15/20 24 [id number] Ambulatory Buildin 118 [facility] 07/09/2024/07/09/20 24 [id number] Ambulatory Building: M_LAB [facility] 07/09/2024/07/09/20 24 [id number] Ambulatory Buildin 118 [facility] 06/24/2024/06/24/20 24 [id number] Ambulatory Building: M_US [facility] 06/21/2024/06/21/20 24 [id number] Emergency [facility] 9Bed: 09 [facility] 06/19/2024/06/19/20 24 [id number] Ambulatory Buildin 131 [facility] 06/19/2024/06/19/20 24 [id number] Ambulatory Building: M_LAB [facility] 06/17/2024/06/17/20 24 [id number] Ambulatory Building: M_LAB [facility] 06/12/2024/06/12/20 24 [id number] Ambulatory Building:PT H_PML [facility] 06/12/2024/06/12/20 24 [id number] Ambulatory Buildin 131 [facility] Amb[facility] 05/31/2024/05/31/20 24 [id number] Ambulatory Buildin 103 [facility] 03/05/2024/03/05/20 24 [id number] Ambulatory Building: M_US [facility] 03/05/2024/03/05/20 24 [id number] Ambulatory Building: M_MAMM [facility] 02/27/2024/02/27/20 24 [id number] Ambulatory Building: M_MRI [facility] 02/27/2024/02/27/20 24 [id number] Ambulatory Building:PF M_MRI [facility] 02/27/2024/02/27/20 24 [id number] Ambulatory Building:PF M_MRI [facility] 01/30/2024/01/31/20 24 [id number] Emergency Building:PF M_CT [facility] 01/30/2024/01/30/20 24 [id number] Emergency Building:PF M_EDRoom: 13Bed: 13 [facility] 01/30/2024/01/31/20 24 [id number] Emergency Building: M_CT [facility] 01/26/2024/01/26/20 24 [id number] Ambulatory Buildin [address] [place] [address] 01/23/2024/01/23/20 24 [id number] Ambulatory Building:[facility] 01/03/2024/01/04/20 24 [id number] Emergency Building: M_CT [facility] 01/03/2024/01/03/20 24 [id number] Emergency Building:PF M_EDRoom: 2Bed: 02 [facility] 01/02/2024/01/04/20 24 [id number] Ambulatory Building:[facility] 12/26/2023/12/26/19 24 [id number] Ambulatory Building:[facility] FUNCTIONAL STATUS No Functional Status Records Found EQUIPMENT No Equipment Records Found PAYERS ENCOUNTER GUARANTOR PAYER SUBSCRIBER SOURCE 12/16/2024 [place]: [address] [address]Joj: () Primary Insurance:[place] MEDICAIDPolicy Number: [id number] Date:2019-10-30 [place]: [id number] [address] [address] [facility] 10/18/2024 [place]: [address] [address]Wbv: (HP) Primary Insurance:[place] MEDICAIDPolicy Number: [id number] Date:2019-10-30 BEAU JOHNSONB: [id number] [address] [place] [address] [facility] 10/08/2024 [place] J[place]ONB: [address], [place] [address]Lxp: (HP) Primary Insurance:[place] MEDICAIDPolicy Number: [id number] Date:2019-10-30 BE[place] JOHNSONB: [id number] [address] [place] [address] [facility] 09/09/2024 BE[place] JOHNSONB: [address], [place] [address]Zqd: (HP) Primary Insurance:[place] MEDICAIDPolicy Number: [id number] Date:2019-10-30 BE[place] JOH[place]ONB: [id number] [address] [place] [address] [facility] 09/09/2024 BE[place] J[place]ONB: [address], [place] [address]Qms: (HP) Primary Insurance:[place] MEDICAIDPolicy Number: [id number] Date:2019-10-30 BE[place] JOH[place]ONB: [id number] [address] [place] [address] [facility] 09/09/2024 [place] J[place]ONB: [address], [place] [address]Hgt: (HP) Primary Insurance:[place] MEDICAIDPolicy Number: [id number] Date:2019-10-30 BE[place] JOHNSONB: [id number] [address] [place] [address] [facility] 09/03/2024 [place] J[place]ONB: [address], [place] [address]Ixm: (HP) Primary Insurance:[place] MEDICAIDPolicy Number: [id number] Date:2019-10-30 BE[place] JOH[place]ONB: [id number] [address] [place] [address] [facility] 09/03/2024 [place] J[place]ONB: [address], [place] [address]Zgh: (HP) Primary Insurance:[place] MEDICAIDPolicy Number: [id number] Date:2019-10-30 BE[place] JOHNSONB: [id number] [address] [place] [address] [facility] 09/03/2024 BE[place] JOH[place]ONB: [address] [address]Sfp: (HP) Primary Insurance:[place]IND[place] MEDICAIDPolicy Number: [id number] Date:2019-10-30 BE[place] JOHNSONB: [id number] [place] [address] [facility] 07/30/2024 [place] J[place]ONB: [address] [place] [address]Spt: (HP) [facility] Insurance:[facility] MEDICAIDPolicy Number: [id number] Date:2019-10-30 BE[place] JOHNSONB: [id number] [address] [place] [address]Izo: (HP) [facility] 07/15/2024 [place] J[place]ONB: [address] [place] [address]Myg: (HP) Primary Insurance:[facility] MEDICAIDPolicy Number: [id number] Date:2019-10-30 BEAU JOHNSONB: [id number] [address]Dzm: (HP) [facility] 07/15/2024 BE[place] J[place]ONB: [address] [address]Fua: (HP) Primary Insurance:[facility] MEDICAIDPolicy Number: [id number] Date:2019-10-30 BE[place] JOH[place]B: [id number] [address]Mxf: (HP) [facility] 07/09/2024 [place]: [address] [address]Qbf: (HP) Primary Insurance:[place] MEDICAIDPolicy Number: [id number] Date:2019-10-30 [place] J[place]ONB: [id number] [address] [address]Ceb: (HP) [facility] 07/09/2024 BEAU JONHSONB: [address] [address]Ydt: (HP) Primary Insurance:[place] MEDICAIDPolicy Number: [id number] Date:2019-10-30 [place] J[place]ONB: [id number] [place] [address]Rpg: (HP) [facility] 06/24/2024 [place]ONB: [address] [address]Xcg: (HP) Primary Insurance:[place] MEDICAIDPolicy Number: [id number] Date:2019-10-30 BE[place] JOH[place]ONB: [id number] [address] [place] [address]Pbc: (HP) [facility] 06/21/2024 BE[place] J[place]ONB: [address] [place] [address]Sgd: (HP) Primary Insurance:[place] MEDICAIDPolicy Number: [id number] Date:2019-10-30 BE[place] JOH[place]ONB: [id number] [address] [place] [address]Get: (HP) [facility] 06/19/2024 [place]: [address] [place] [address]Mow: (HP) Primary Insurance:[place] MEDICAIDPolGeoLearningy Number: [id number] Date:2019-10-30 [place]ONB: [id number] [address] [place] [address]Pof: (HP) [facility] 06/19/2024 [place]: [address] [place] [address]Xkn: (HP) Primary Insurance:[place] MEDICAIDPolicy Number: [id number] Date:2019-10-30 [place]B: [id number] [address] [place] [address]Eze: (HP) [facility] 06/17/2024 [place] J[place]B: [address] [place] [address]Sys: (HP) Primary Insurance:[place] MEDICAIDPolicy Number: [id number] Date:2019-10-30 [place]B: [id number] [address] [place] [address]Ohe: (HP) [facility] 06/12/2024 [place]B: [address] [place] [address]Etk: (HP) Primary Insurance:[place]HUPINDERMery MEDICAIDPolicy Number: [id number] Date:2019-10-30 [place]: [id number] [address], [place] [address]Dex: (HP) [facility] 06/12/2024 [place] J[place]ONB: [address] [place] [address]Esl: (HP) Primary Insurance:[place] MEDICAIDPolicy Number: [id number] Date:2019-10-30 [place]: [id number] [address], [place] [address]Uss: (HP) [facility] 05/31/2024 [place] J[place]ONB: [address] [place] [address]Fng: (HP) Primary Insurance:[place] MEDICAIDPolicy Number: [id number] Date:2019-10-30 [place] J[place]B: [id number] [address], [place] [address]Hgp: (HP) [facility] 03/05/2024 [place] J[place]ONB: [address] [place] [address]Twt: (HP) Primary Insurance:[place] MEDICAIDPolicy Number: [id number] Date:2019-10-30 BE[place] JOH[place]ONB: [id number] [address], [place] [address]Piw: (HP) [facility] 03/05/2024 [place] J[place]ONB: [address] [place] [address]Odq: (HP) Primary Insurance:[place] MEDICAIDPolicy Number: [id number] Date:2019-10-30 [place] J[place]B: [id number] [address], [place] [address]Sar: (HP) [facility] 02/27/2024 [place]B: [address] [place] [address]Wjp: (HP) Primary Insurance:[place] MEDICAIDPolicy Number: [id number] Date:2019-10-30 [place]B: [id number] [address], [place] [address]Epu: (HP) [facility] 02/27/2024 [place]B: [address] [place] [address]Rtn: (HP) Primary Insurance:[place] MEDICAIDPolicy Number: [id number] Date:2019-10-30 [place]B: [id number] [address], [place] [address]Bil: (HP) [facility] 02/27/2024 [place]B: [address] [place] [address]Gfi: (HP) Primary Insurance:[place] MEDICAIDPolicy Number: [id number] Date:2019-10-30 [place]B: [id number] [address] [place] [address]Tme: (HP) [facility] 01/30/2024 [place]B: [address] [place] [address]Dyt: (HP) Primary Insurance:[place] MEDICAIDPolicy Number: [id number] Date:2019-10-30 [place]B: [id number] [address], [place] [address]Quq: (HP) [facility] 01/30/2024 [place]: [address] [place] [address]Qaz: (HP) Primary Insurance:[place] MEDICAIDPolicy Number: [id number] Date:2019-10-30 [place]: [id number] [address] [place] [address]Kaa: (HP) [facility] 01/30/2024 [place]: [address] [place] [address]Szw: (HP) Primary Insurance:[place] MEDICAIDPolicy Number: [id number] Date:2019-10-30 BE[place] JOH[place]ONB: [id number] [address] [place] [address]Zci: (HP) [facility] 01/26/2024 [place] J[place]B: [address] [place] [address]Azr: (HP) Primary Insurance:[place] MEDICAIDPolicy Number: [id number] Date:2019-10-30 BE[place] JOH[place]ONB: [id number] [address], [place] [address]Pry: (HP) [facility] 01/23/2024 BEAU JOHNSONB: [facility] [address], [place] [address]Xkp: (HP) Primary Insurance:[facility] PLANPolicy Number: [id number] Date:2022-12-29[address] [place] [address]MF: BEAU JOHNSONB: [id number] [facility] [address], [place] [address]Ejs: (HP) [facility] 01/03/2024 BEAU CASILLASDOB: [address] [place] [address]Rmn: (HP) Primary Insurance:[place] MEDICAIDPolicy Number: [id number] Date:2019-10-30 BEAU CASILLASDOB: [id number] [address], [place] [address]Arv: (HP) [facility] 01/03/2024 BEAU CASILLASDOB: [address] [place] [address]Kts: (HP) Primary Insurance:[place] MEDICAIDPolicy Number: [id number] Date:2019-10-30 BEAU CASILLASDOB: [id number] [address], [place] [address]Hnl: (HP) [facility] 01/02/2024 [place] JOH[place]ONB: [facility] [address], [place] [address]Bbm: (HP) Primary Insurance:[facility] Number: [id number] Date:2022-12-29[address] [place] [address]UZ: BEAU CASILLASDOB: [id number] [facility] [address], [place] [address]Viz: () [facility] 12/26/2023 BEAU CASILLASDOB: [facility] [address], [place] [address]Uyr: () Primary Insurance:[facility]ITALPolicy Number: [id number] Date:2022-12-29[address], [place] [address]XV: BEAU JOHNSONB: [id number] [facility] [address], [place] [address]Ssu: () [facility] SOCIAL HISTORY No Social History Records Found FAMILY HISTORY No Family History Records Found ADVANCE DIRECTIVES No Advanced Directives Records Found INFORMATION SOURCE DATE CREATED AUTHOR AUTHOR'S HARINDER ATGOLDIE 12/19/2024 [place]
--- OUTSIDE RECORDS SUMMARY | 2024-12-16 19:28 | XMS_ITS | Encounter Summary ---
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 mg/dL 12/17/2024 9:00 AM EDT [facility] Blood Venous blood / Unknown 12/17/2024 7:45 AM EDT 12/17/2024 7:45 AM EDT Alpa Joiner MD LAB BLOOD ORDERABLES Final R esult [facility] [address] [place] [address], * POCT , urine (12/17/2024 12:04 AM EDT) [facility] POC Urine Negative Negative 12/17/2024 12:06 AM EDT [facility] Urine 12/17/2024 12:0 4 AM EDT 12/17/2024 12:06 AM EDT us Manal W Devante DO POINT OF CARE TEST ORDERABLES Fi nal Result [facility] [address] [place] [address], [place] * (ABNORMAL) POCT Nursing Urine Macroscopic UA (12/17/2024 12:02 AM EDT) Pathologist [facility] POC Urine Specific [place] 1.025 1.010, 1.015, 1.020, 1.025 12/17/2024 12:03 AM EDT [facility] POC Urine Leukocyte Esterase Negative Negative 12/17/2024 12:03 AM EDT [facility] POC Urine Nitrite Negative Negative 12/17/2024 12:03 AM EDT [facility] POC Urine pH 5.5 5.0, 6.0, 6.5, 7.0, 7.5, 8.0, 8.5, 5.5 12/17/2024 12:03 AM EDT [facility] POC Urine Protein Negative Negative 12/17/2024 12:03 AM EDT [facility] POC Urine Glucose Negative Negative 12/17/2024 12:03 AM EDT [facility] POC Urine Ketones Trace(A) Negative 12/17/2024 12:03 AM EDT [facility] POC Urine Urobilinogen 0.2 E.U./dL 12/17/2024 12:03 AM EDT [facility] POC Urine Bilirubin Negative Negative 12/17/2024 12:03 AM EDT [facility] POC Urine Blood/HGB Negative Negative 12/17/2024 12:03 AM EDT [facility] Urine 12/17/2024 12:0 2 AM EDT 12/17/2024 12:03 AM EDT us Manal W Devante DO POINT OF CARE TEST ORDERABLES Fi nal Result [facility] [address] [place] [address], [place] * Extra Urine (12/16/2024 11:24 PM EDT) Extra Tube Auto Resulted 12/17/2024 1:01 AM EDT [facility] Urine 12/16/2024 11:2 4 PM EDT 12/17/2024 12:50 AM EDT us Manal W Devante DO URINE ORDERABLES Final Result [facility] [address] [place] [address], [place] [phone] * CT brain without contrast (12/16/2024 8:45 PM EDT) Anatomical Region Laterality Modality Neuro, Head, Head and Neck, Neuro Covera N/A Computed Tomography 12/16/2024 9:15 PM EDT Narrative 12/16/2024 9:[address] BRAIN WO CONT CLINICAL HISTORY: migraine. [...] Doug Javed MD on 12/16/2024 9:17 PM Procedure Note Doug Javed MD - 12/16/2024 CT BRAIN WO CONT CLINICAL HISTORY: migraine. Headache. COMPARISON: None. TECHNIQUE: CT head was performed without contrast using the standardprotocol. Automated exposure control was utilized. FINDINGS: No acute appearing territorial region of diminished gotti-whitedifferentiation. No acute intracranial hemorrhage. No ventriculomegaly. Unremarkable temporal bone structures, suprahyoid neck, orbits, scalp softtissues. IMPRESSION: 1. No acute intracranial abnormality, by CT. If there is ongoing concern,consider MR. All CT scans at this facility use dose modulation, iterativereconstruction, and/or weight based dosing when appropriate to reduceradiation dose to as low as reasonably achievable. Finalized by Doug Javed MD on 12/16/2024 9:17 PM Janell Samuels MORNING SHOW HOST-SERVICE ADVISOR IMG CT ORDERABLES Felicia l Result * (ABNORMAL) Comprehensive metabolic panel (12/16/2024 7:18 PM EDT) SODIUM 136 134 - 146 mmol/L 12/16/2024 8:08 PM EDT [facility] POTASSIUM 4.2 3.5 - 5.0 mmol/L 12/16/2024 8:08 PM EDT [facility] CHLORIDE 99 98 - 109 mmol/L 12/16/2024 8:08 PM EDT [facility] CARBON DIOXIDE 26 22 - 32 mmol/L 12/16/2024 8:08 PM EDT [facility] ANION GAP 11 5 - 15 mmol/L 12/16/2024 8:08 PM T [facility] BLOOD UREA NITROGEN 13 5 - 23 mg/dL 12/16/2024 8:08 PM T [facility] CREATININE 0.79 0.40 - 1.00 mg/dL 12/16/2024 8:08 PM T [facility] Comment:METHOD TRACEABLE TO [facility] STANDARD GLUCOSE 112(H) 65 - 99 mg/dL 12/16/2024 8:08 PM EDT [facility] CALCIUM 9.7 8.5 - 10.5 mg/dL 12/16/2024 8:08 PM T [facility] TOTAL PROTEIN 7.9 6.0 - 8.0 g/dL 12/16/2024 8:08 PM T [facility] ALBUMIN 4.7 3.2 - 5.3 g/dL 12/16/2024 8:08 PM T [facility] ALKALINE PHOSPHATASE 74 39 - 130 U/L 12/16/2024 8:08 PM T [facility] AST 30 <=41 U/L 12/16/2024 8:08 PM T [facility] ALT 29 <=31 U/L 12/16/2024 8:08 PM T [facility] BILIRUBIN,TOTAL 0.6 0.3 - 1.2 mg/dL 12/16/2024 8:08 PM T [facility] EGFR Non-Race Dependent >90 >=60 ml/min/1.7 3sq.m 12/16/2024 8:08 PM T [facility] Comment: Reported eGFR is based on the CKD-EPI 2020 equation that does not use a race coefficient. Blood Venous blood / Unknown Venipuncture / Unknown 12/16/2024 7:18 PM EDT 12/16/2024 7:33 PM EDT us Teressa W Devante DO LAB BLOOD ORDERABLES Final Resul t [facility] [address] [place] [id number], * (ABNORMAL) CBC auto differential (12/16/2024 7:18 PM EDT) WBC 10.2 4 - 11 x10E9/L 12/16/2024 7:53 PM EDT [facility] RBC Count 5.55(H) 3.8 - 5.2 X10E12/L 12/16/2024 7:53 PM EDT [facility] Hemoglobin 12.8 11.7 - 15.5 g/dL 12/16/2024 7:53 PM EDT [facility] Hematocrit 39.5 35 - 47 % 12/16/2024 7:53 PM EDT [facility] MCV 71(L) 80 - 100 fL 12/16/2024 7:53 PM EDT [facility] MCH 23.0(L) 27 - 34 pg 12/16/2024 7:53 PM EDT [facility] MCHC 32.3 32 - 36 g/dL 12/16/2024 7:53 PM EDT [facility] RDW 18.7(H) 11.5 - 15 % 12/16/2024 7:53 PM EDT [facility] Platelet Count 455(H) 150 - 450 X10E9/L 12/16/2024 7:53 PM EDT [facility] MPV 7.7 7 - 12 fL 12/16/2024 7:53 PM EDT [facility] Neutrophils Relative 69.6 % 12/16/2024 7:53 PM EDT [facility] Lymphocytes Relative 19.6 % 12/16/2024 7:53 PM EDT [facility] Monocytes Relative 6.8 % 12/16/2024 7:53 PM EDT [facility] Eosinophils Relative 3.0 % 12/16/2024 7:53 PM EDT [facility] Basophils Relative 1.0 % 12/16/2024 7:53 PM EDT [facility] Neutrophils Absolute (A) 7.1(H) 1.5 - 6.6 10*3/uL 12/16/2024 7:53 PM EDT [facility] Lymphocytes Absolute 2.0 1.0 - 3.5 10*3/uL 12/16/2024 7:53 PM EDT [facility] Monocytes Absolute 0.7 0.0 - 0.9 10*3/uL 12/16/2024 7:53 PM EDT [facility] Eosinophils Absolute 0.3 0.0 - 0.4 10*3/uL 12/16/2024 7:53 PM EDT [facility] Basophils Absolute 0.1 0.0 - 0.2 10*3/uL 12/16/2024 7:53 PM EDT [facility] Differential Type AUTOMATED DIFFERENTIAL 12/16/2024 7:53 PM EDT [facility] Blood Venous blood / Unknown Venipuncture / Unknown 12/16/2024 7:18 PM EDT 12/16/2024 7:33 PM EDT us Manal W Devante DO LAB BLOOD ORDERABLES Final Resul t [facility] [address] [place] [address], documented in this encounter Visit Diagnoses Diagnosis Intractable migraine with status migrainosus, unspecified migraine type- Primary Intractable migraine with status migrainosus, unspecified migraine type documented in this encounter Admitting Diagnoses Diagnosis Intractable migraine with status migrainosus, unspecified migraine type documented in this encounter Administered Medications Inactive Administered Medications - up to 3 most recent administrations Medication Order MAR Action Action Date Dose Rate Site acetaminophen (OFIRMEV) IVPB Premix 1,000 mg 1,000 mg, intravenous, at 400 mL/hr, Administer over 15 Minutes, Every 6 hours scheduled, First dose on Mon12/17/24 at 0100, For 24 hours New Bag 12/17/2024 1:33 PM EDT 1,000 mg 400 mL/hr New Bag 12/17/2024 6:29 AM EDT 1,000 mg 400 mL/hr New Bag 12/17/2024 1:42 AM EDT 1,000 mg 400 mL/hr acetaminophen (TYLENOL) tablet 650 mg 650 mg, oral, Every 6 hours PRN, headaches, temperature greater than 38.3 C, Starting on Mon12/16/24 at 2244 calcium gluconate 3,000 mg in sodium chloride 0.9 % 100 mL IVPB 3,000 mg, intravenous, at 43.3 mL/hr, Administer over 3 Hours, As needed, ionized calcium 3.5 to 3.9 mg/dL, Starting on Mon12/16/24 at 2244, IV Administration of calcium via a central or deep vein preferred. Avoid administration in small hand veins VESICANT (RED) calcium gluconate 4,000 mg in sodium chloride 0.9 % 250 mL IVPB 4,000 mg, intravenous, at 72.5 mL/hr, Administer over 4 Hours, As needed, ionized calcium 3.4 mg/dL or less, Starting on Mon12/16/24 at 2244, IV administration of calcium via a central or deep vein is preferred. Avoid administration in small hand veins. VESICANT (RED) calcium gluconate IVPB 2000 mg/100 mL (20 mg/mL premix) 2,000 mg, intravenous, at 50 mL/hr, Administer over 2 Hours, As needed, ionized calcium 4 to 4.3 mg/dL, Starting on Mon12/16/24 at 2244, IV Administration of calcium via a central or deep vein preferred. Avoid administration in small hand veins VESICANT (RED) dexAMETHasone sodium phos (PF) (DECADRON) injection 10 mg 10 mg, oral, Once, On Mon12/16/24 at 1945, For 1 dose, DexAMETHasone injection for ORAL use. May mix injection with oral flavored syrup. Administer immediately. May alter blood glucose or insulin requirements. Look-alike/sound-alike medication - verify indication for use. Given 12/16/2024 7:58 PM EDT 10 mg dextrose (GLUTOSE) 40 % gel 15 g 15 g, oral, As needed, low blood sugar, blood glucose less than 70 mg/dL, Starting on Mon12/16/24 at 2244, If patient conscious and taking PO. If blood glucose is not greater than 70 mg/dL after initial treatment, repeat treatment. dextrose 5 % (D5W) infusion 100 mL/hr, intravenous, Continuous PRN, blood glucose less than 70 mg/dL, Starting on Mon12/16/24 at 2244, For 1 day, Use immediately following dextrose 50% or glucagon treatment for patients who are unconscious or NPO. Contact prescriber for additional orders. If blood glucose is not greater than 70 mg/dL after initial treatment, repeat treatment. dextrose 50 % in water (D50W) 50% solution 25 mL 25 mL, intravenous, As needed, low blood sugar, blood glucose less than 70 mg/dL and unconscious or NPO with IV access, Starting on Mon12/16/24 at 2244, Push over 1-3 minutes STAT. If conscious and not NPO, immediately follow with meal tray or high protein (7 grams) snack if tray not available. If NPO, initiate 5% dextrose in water at 100 mL/hr and contact prescriber for additional orders. If blood glucose is not greater than 70 mg/dL after initial treatment, repeat treatment. VESICANT (RED) Warning: HYPERTONIC solution. diphenhydrAMINE (BENADRYL) injection 25 mg 25 mg, intravenous, Every 6 hours, First dose on Mon12/17/24 at 0100, Look-alike/sound-alike medication - verify indication for use. Given 12/17/2024 6:23 AM EDT 25 m g Given 12/17/2024 1:32 AM EDT 25 mg diphenhydrAMINE (BENADRYL) injection 50 mg 50 mg, intravenous, Once, On Mon12/16/24 at 1945, For 1 dose, Look-alike/sound-alike medication - verify indication for use. Given 12/16/2024 7:54 PM EDT 50 mg glucagon HCL injection 1 mg 1 mg, intramuscular, As needed, low blood sugar, blood glucose less than 70 mg/dL and unconscious or NPO without IV access., Starting on Mon12/16/24 at 2244, If conscious and not NPO, immediately follow with meal tray or high protein (7Grams) snack if tray not available. If NPO, initiate IV 5% Dextrose/Water at 100 mL/hr and contact prescriber for additional orders. If blood glucose is not greater than 70 mg/dL after initial treatment, repeat treatment. haloperidol lactate (HALDOL) injection 5 mg 5 mg, intramuscular, Once, On Mon12/16/24 at 2120, For 1 dose, IV Haldol requires monitored bed Given 12/16/2024 9:27 PM EDT 5 mg Left Deltoid hydrOXYzine (ATARAX) tablet 50 mg 50 mg, oral, Every 6 hours PRN, anxiety, Adjunct to pain medicine, Starting on Mon12/17/24 at 1219, Look-alike/sound-alike medication - verify indication for use. Given 12/17/2024 1:18 PM EDT 50 mg ketorolac (TORADOL) injection 15 mg 15 mg, intravenous, Once, On Mon12/16/24 at 1945, For 1 dose, Look-alike/sound-alike medication - verify indication for use. Duration of therapy is not to exceed 5 days. Maximum recommended dose + 120mg/24 hours. Given 12/16/2024 8:02 PM EDT 15 mg ketorolac (TORADOL) injection 15 mg 15 mg, intravenous, Every 6 hours PRN, headache, Starting on Mon12/16/24 at 2321, For 24 hours, Look-alike/sound-alike medication - verify indication for use. Duration of therapy is not to exceed 5 days. Maximum recommended dose + 120mg/24 hours. Given 12/17/2024 11:12 AM EDT 15 mg Given 12/17/2024 5:06 AM EDT 15 mg LORazepam (ATIVAN) injection 1 mg 1 mg, intravenous, As needed, anxiety, Starting on Mon12/17/24 at 0311, To be given before MRI due to claustrophobia Look-alike/sound-alike medication - verify indication for use;IV use requires increased monitoring of HR,BP,Respirations and Pulse Oximetry;For IV-dilute with equal volume PF sod chloride, Indication: Procedural Moderate Sedation magnesium sulfate 500 mg in sodium chloride 0.9 % 50 mL IVPB 500 mg, intravenous, at 25.5 mL/hr, Administer over 120 Minutes, Every 6 hours, First dose on Mon12/17/24 at 0100, For 4 doses New Bag 12/17/2024 1:31 PM EDT 500 mg 25.5 mL/hr Rate/Dose Verify 12/17/2024 8:35 AM EDT 25.5 mL /hr Restarted 12/17/2024 7:28 AM EDT 25.5 mL/hr magnesium sulfate IVPB 1000 mg/100 mL in dextrose 5% (10 mg/mL premix) 1,000 mg, intravenous, at 100 mL/hr, Administer over 60 Minutes, Once, On Mon12/16/24 at 2120, For 1 dose, Infuse each gram over 60 minutes. New Bag 12/16/2024 9:28 PM EDT 1,000 mg 100 mL/hr magnesium sulfate IVPB 1000 mg/100 mL in dextrose 5% (10 mg/mL premix) 1,000 mg, intravenous, at 100 mL/hr, Administer over 60 Minutes, Every 6 hours PRN, headache, Starting on Mon12/16/24 at 2321, Infuse each gram over 60 minutes. magnesium sulfate IVPB 2000 mg/50 mL in iso-osmotic water (40 mg/mL premix) 2,000 mg, intravenous, at 25 mL/hr, Administer over 120 Minutes, As needed, Magnesium level 1.7 to 1.9 mg/dL, or Ionized Magnesium level 0.45 to 0.5 mmol/L., Starting on Mon12/16/24 at 2244, Recheck magnesium level 4 hours after infusion complete. With each magnesium result continue the replacement orders as needed. magnesium sulfate IVPB 4000 mg/100 mL in iso-osmotic water (40 mg/mL premix) 4,000 mg, intravenous, at 25 mL/hr, Administer over 240 Minutes, As needed, Magnesium level 1.6 mg/dL or less, or Ionized Magnesium level 0.44 mmol/L or less, Starting on Mon12/16/24 at 2244, Recheck magnesium level 4 hours after infusion complete. With each magnesium result continue the replacement orders as needed. methylPREDNISolone sod suc(PF) (Solu-MEDROL) injection 125 mg 125 mg, intravenous, Every 6 hours scheduled, First dose on Mon12/17/24 at 1430, For 6 doses, May alter blood glucose or insulin requirements. Look-alike/sound-alike medication - verify indication for use. metoclopramide (REGLAN) injection 10 mg 10 mg, intravenous, Once, On Mon12/16/24 at 1945, For 1 dose, Administer over 2 minutes. Given 12/16/2024 7:56 PM EDT 10 mg metoclopramide (REGLAN) injection 10 mg 10 mg, intravenous, Every 6 hours PRN, headache, Starting on Mon12/16/24 at 2321, Administer over 2 minutes. morphine injection 4 mg 4 mg, intravenous, Once, On Mon12/17/24 at 1215, For 1 dose, Look-alike/sound-alike medication - verify indication for use. Given 12/17/2024 1:19 PM EDT 4 mg potassium chloride (K-TAB,KLOR-CON) CR tablet 30-50 mEq 30-50 mEq, oral, As needed, potassium supplementation, Starting on Mon12/16/24 at 2244, Progress to oral potassium replacement when patient tolerating oral intake. If dose administered, recheck potassium level 4 hours after last dose. For potassium level 3.4 to 3.8 mmol/L and GFR 30 mL/min or greater=30 mEq. For potassium level 3.1 to 3.3 mmol/L and GFR 30 mL/min or greater=40 mEq. For potassium level 3 mmol/L or less and GFR 30 mL/min or greater=50 mEq. Do not crush or chew. potassium chloride (KAYCIEL) 20 mEq/15 mL solution 30-50 mEq 30-50 mEq, oral, As needed, potassium supplementation, Starting on Mon12/16/24 at 2244, Progress to oral potassium replacement when patient tolerating oral intake. If dose administered, recheck potassium level 4 hours after last dose. For potassium level 3.4 to 3.8 mmol/L and GFR 30 mL/min or greater=30 mEq. For potassium level 3.1 to 3.3 mmol/L and GFR 30 mL/min or greater=40 mEq. For potassium level 3 mmol/L or less and GFR 30 mL/min or greater=50 mEq. Must dilute before use - Mix in 3-8 ounces of water or juice before administration When administering in feeding tube, flush before and after per policy and monitor potassium levels prochlorperazine (COMPAZINE) injection 5 mg 5 mg, intravenous, Every 6 hours, First dose on Mon12/17/24 at 0100, When administered via IV Push, do not exceed 5 mg per minute Given 12/17/2024 6:23 AM EDT 5 mg Given 12/17/2024 1:32 AM EDT 5 mg sod phos di, mono-K phos mono (K-PHOS NEUTRAL) 250 mg tablet 2 tablet 2 tablet, oral, As needed, for phosphorus level 2.3 mg/dL or less., Starting on Mon12/16/24 at 2244, Administer oral dose if patient tolerating PO. If dose administered, recheck phosphorus level 4 hours after last dose. Look-alike/sound-alike medication - verify indication for use. Give with a full glass of water. sodium chloride 0.9 % bolus 1,000 mL, intravenous, at 984 mL/hr, Administer over 61 Minutes, Once, On Mon12/16/24 at 1945, For 1 dose New Bag 12/16/2024 8:03 PM EDT 1,000 mL 984 mL/hr sodium chloride 0.9 % bolus 250 mL, intravenous, at 484 mL/hr, Administer over 31 Minutes, Every 6 hours PRN, headache, Starting on Mon12/16/24 at 2320 sodium chloride 0.9 % bolus 500 mL, intravenous, at 492 mL/hr, Administer over 61 Minutes, Every 6 hours, First dose on Mon12/17/24 at 0100, For 4 doses New Bag 12/17/2024 1:22 PM EDT 500 mL 492 mL/hr Restarted 12/17/2024 6:44 AM EDT 492 mL/hr New Bag 12/17/2024 6:28 AM EDT 500 mL 492 mL/hr sodium chloride 0.9 % flush 3 mL 3 mL, intravenous, As needed, line care, before and after each intermittent use, Starting on Mon12/16/24 at 2244 Given 12/16/2024 10:55 PM EDT 3 mL sodium chloride 0.9 % flush 3 mL 3 mL, intravenous, Every 12 hours scheduled, First dose on Mon12/16/24 at 2250 Given 12/17/2024 8:25 AM EDT 3 mL sodium chloride 0.9 % infusion 20 mL/hr, intravenous, Continuous PRN, to maintain patency of lines, Starting on Mon12/16/24 at 2244, For 1 day sodium phosphate 20 mmol in sodium chloride 0.9 % 100 mL IVPB 20 mmol, intravenous, at 26.7 mL/hr, Administer over 4 Hours, As needed, for phosphorus level 2.3 mg/dL or less., Starting on Mon12/16/24 at 2244, Administer IV dose if NPO or not tolerating PO. Administer over 4 hours via dedicated line (central line). If administered, recheck phosphorus level 4 hours after infusion complete. Infuse using central line access. sodium phosphate 20 mmol in sodium chloride 0.9 % 250 mL IVPB 20 mmol, intravenous, at 42.8 mL/hr, Administer over 6 Hours, As needed, for phosphorus level 2.3 mg/dL or less, Starting on Mon12/16/24 at 2244, Administer IV dose if NPO or not tolerating PO. Administer over 6 hours via dedicated line (peripheral line). If administered, recheck phosphorus level 4 hours after infusion complete. documented in this encounter Active and Recently Administered Medications Times are shown in EDT. Scheduled Medication Order 12/15/2024 12/16/2024 12/17/2024 acetaminophen (OFIRMEV) IVPB Premix 1,000 mg(Linked Group 1) 1,000 mg, intravenous, at 400 mL/hr, Administer over 15 Minutes, Every 6 hours scheduled, First dose on Mon12/17/24 at 0100, For 24 hours 0142 (New Bag - Provider: Sayda Watts RN)0157 (Stop Bag - Provider: Sayda Watts RN)0629 (New Bag - Provider: Sayda Watts, RN)0644 (Stop Bag - Provider: Sayda Watts, RN)1333 (New Bag - Provider: Bonnie Bush, GT)1348 (Stop Bag - Provider: Bonnie Bush RN) dexAMETHasone sodium phos (PF) (DECADRON) injection 10 mg (COMPLETED) 10 mg, oral, Once, On Mon12/16/24 at 1945, For 1 dose, DexAMETHasone injection for ORAL use. May mix injection with oral flavored syrup. Administer immediately. May alter blood glucose or insulin requirements. Look-alike/sound-alike medication - verify indication for use. 1957 (Given - Provider: Hoang Lynch RN) diphenhydrAMINE (BENADRYL) injection 25 mg(Linked Group 1) 25 mg, intravenous, Every 6 hours, First dose on Mon12/17/24 at 0100, Look-alike/sound-alike medication - verify indication for use. 0132 (Given - Provid er: Sayda Watts, RN)0623 (Given - Provider: Sayda Watts, RN)1300 (Not Given - Provider: Bonnie Bush, RN - Reason: Other) diphenhydrAMINE (BENADRYL) injection 50 mg (COMPLETED) 50 mg, intravenous, Once, On Mon12/16/24 at 1945, For 1 dose, Look-alike/sound-alike medication - verify indication for use. 1953 (Given - Provider: Hoang Lynch, GT) haloperidol lactate (HALDOL) injection 5 mg (COMPLETED) 5 mg, intramuscular, Once, On Mon12/16/24 at 0, For 1 dose, IV Haldol requires monitored bed 2126 (Given - Provider: Hoang Lynch, GT) ketorolac (TORADOL) injection 15 mg (COMPLETED) 15 mg, intravenous, Once, On Mon12/16/24 at 1945, For 1 dose, Look-alike/sound-alike medication - verify indication for use. Duration of therapy is not to exceed 5 days. Maximum recommended dose + 120mg/24 hours. 2001 (Given - Provider: Hoang Lynch RN) lidocaine PF (XYLOCAINE) 20 mg/mL (2 %) injection 100 mg 100 mg (5 mL), infiltration, Once, On Mon12/17/24 at 1430, For 1 dose, HOLD, For intra-nasal for migraine. 1430 (Due) magnesium sulfate 500 mg in sodium chloride 0.9 % 50 mL IVPB(Linked Group 1) 500 mg, intravenous, at 25.5 mL/hr, Administer over 120 Minutes, Every 6 hours, First dose on Mon12/17/24 at 0100, For 4 doses 0200 (New Bag - Provider: Sayda Watts, RN)0400 (Stop Bag - Provider: Sayda Watts, RN)0712 (New Bag - Provider: Sayda Watts, RN)0718 (Paused - Provider: Bonnie Bush, RN)0722 (Restarted - Provider: Bonnie Bush, RN)0725 (Paused - Provider: Bonnie Bush, RN)0728 (Restarted - Provider: Bonnie Bush, RN)0835 (Rate/Dose Verify - Provider: Bonnie Bush RN)0912 (Stop Bag - Provider: Bonnie Bush RN)1331 (New Bag - Provider: Bonnie Bush RN)1531 (Stop Bag - Provider: Bonnie Bush RN) magnesium sulfate IVPB 1000 mg/100 mL in dextrose 5% (10 mg/mL premix) (COMPLETED) 1,000 mg, intravenous, at 100 mL/hr, Administer over 60 Minutes, Once, On Mon12/16/24 at 2120, For 1 dose, Infuse each gram over 60 minutes. 2127 (New Bag - Provider: Hoang Lynch RN)2231 (Stop Bag - Provider: Hoang Lynch RN) methylPREDNISolone sod suc(PF) (Solu-MEDROL) injection 125 mg 125 mg, intravenous, Every 6 hours scheduled, First dose on Mon12/17/24 at 1430, For 6 doses, May alter blood glucose or insulin requirements. Look-alike/sound-alike medication - verify indication for use. 1430 (Due) metoclopramide (REGLAN) injection 10 mg (COMPLETED) 10 mg, intravenous, Once, On Mon12/16/24 at 1945, For 1 dose, Administer over 2 minutes. 1955 (Given - Provider: Hoang Lynch RN) morphine injection 4 mg (COMPLETED) 4 mg, intravenous, Once, On Mon12/17/24 at 1215, For 1 dose, Look-alike/sound-alike medication - verify indication for use. 1319 (Given - Provid er: Bonnie Bush RN) prochlorperazine (COMPAZINE) injection 5 mg(Linked Group 1) 5 mg, intravenous, Every 6 hours, First dose on Mon12/17/24 at 0100, When administered via IV Push, do not exceed 5 mg per minute 0132 (Given - Provid er: Sayda Watts, RN)0623 (Given - Provider: Sayda Watts, RN)1300 (Not Given - Provider: Bonnie Bush RN - Reason: Other) sodium chloride 0.9 % bolus (COMPLETED) 1,000 mL, intravenous, at 984 mL/hr, Administer over 61 Minutes, Once, On Mon12/16/24 at 1945, For 1 dose 2002 (New Bag - Provider: Hoang Lynch RN)2222 (Stop Bag - Provider: Hoang Lynch RN) sodium chloride 0.9 % bolus(Linked Group 1) 500 mL, intravenous, at 492 mL/hr, Administer over 61 Minutes, Every 6 hours, First dose on Mon12/17/24 at 0100, For 4 doses 0141 (New Bag - Provider: Sayda Watts RN)0142 (Paused - Provider: Bonnie Bush RN)0157 (Restarted - Provider: Bonnie Bush RN)0200 (Stop Bag - Provider: Bonnie Bush RN)0242 (Stop Bag - Provider: Sayda Watts, RN)0628 (New Bag - Provider: Sayda Watts, RN)0629 (Paused - Provider: Bonnie Bush RN)0644 (Restarted - Provider: Bonnie Bush RN)0712 (Stop Bag - Provider: Bonnie Bush RN)0729 (Stop Bag - Provider: Bonnie Bush RN)1322 (New Bag - Provider: Bonnie Bush RN)1423 (Stop Bag - Provider: Bonnie Bush RN) sodium chloride 0.9 % flush 3 mL 3 mL, intravenous, Every 12 hours scheduled, First dose on Mon12/16/24 at 2250 2250 (Not Given - Provider: Hoang Lynch RN - Reason: Other - Comment: given at 2255) 0825 (Given - Provider: Bonnie Bush RN) PRN Medication Order 12/15/2024 12/16/2024 12/17/2024 acetaminophen (TYLENOL) tablet 650 mg 650 mg, oral, Every 6 hours PRN, headaches, temperature greater than 38.3 C, Starting on Mon12/16/24 at 2244 calcium gluconate 3,000 mg in sodium chloride 0.9 % 100 mL IVPB 3,000 mg, intravenous, at 43.3 mL/hr, Administer over 3 Hours, As needed, ionized calcium 3.5 to 3.9 mg/dL, Starting on Mon12/16/24 at 2244, IV Administration of calcium via a central or deep vein preferred. Avoid administration in small hand veins VESICANT (RED) calcium gluconate 4,000 mg in sodium chloride 0.9 % 250 mL IVPB 4,000 mg, intravenous, at 72.5 mL/hr, Administer over 4 Hours, As needed, ionized calcium 3.4 mg/dL or less, Starting on Mon12/16/24 at 2244, IV administration of calcium via a central or deep vein is preferred. Avoid administration in small hand veins. VESICANT (RED) calcium gluconate IVPB 2000 mg/100 mL (20 mg/mL premix) 2,000 mg, intravenous, at 50 mL/hr, Administer over 2 Hours, As needed, ionized calcium 4 to 4.3 mg/dL, Starting on Mon12/16/24 at 2244, IV Administration of calcium via a central or deep vein preferred. Avoid administration in small hand veins VESICANT (RED) dextrose (GLUTOSE) 40 % gel 15 g 15 g, oral, As needed, low blood sugar, blood glucose less than 70 mg/dL, Starting on Mon12/16/24 at 2244, If patient conscious and taking PO. If blood glucose is not greater than 70 mg/dL after initial treatment, repeat treatment. dextrose 5 % (D5W) infusion 100 mL/hr, intravenous, Continuous PRN, blood glucose less than 70 mg/dL, Starting on Mon12/16/24 at 2244, For 1 day, Use immediately following dextrose 50% or glucagon treatment for patients who are unconscious or NPO. Contact prescriber for additional orders. If blood glucose is not greater than 70 mg/dL after initial treatment, repeat treatment. dextrose 50 % in water (D50W) 50% solution 25 mL 25 mL, intravenous, As needed, low blood sugar, blood glucose less than 70 mg/dL and unconscious or NPO with IV access, Starting on Mon12/16/24 at 2244, Push over 1-3 minutes STAT. If conscious and not NPO, immediately follow with meal tray or high protein (7 grams) snack if tray not available. If NPO, initiate 5% dextrose in water at 100 mL/hr and contact prescriber for additional orders. If blood glucose is not greater than 70 mg/dL after initial treatment, repeat treatment. VESICANT (RED) Warning: HYPERTONIC solution. glucagon HCL injection 1 mg 1 mg, intramuscular, As needed, low blood sugar, blood glucose less than 70 mg/dL and unconscious or NPO without IV access., Starting on Mon12/16/24 at 2244, If conscious and not NPO, immediately follow with meal tray or high protein (7Grams) snack if tray not available. If NPO, initiate IV 5% Dextrose/Water at 100 mL/hr and contact prescriber for additional orders. If blood glucose is not greater than 70 mg/dL after initial treatment, repeat treatment. hydrOXYzine (ATARAX) tablet 50 mg 50 mg, oral, Every 6 hours PRN, anxiety, Adjunct to pain medicine, Starting on Mon12/17/24 at 1219, Look-alike/sound-alike medication - verify indication for use. 1318 (Given - Provid er: Bonnie Bush, GT) ketorolac (TORADOL) injection 15 mg 15 mg, intravenous, Every 6 hours PRN, headache, Starting on Mon12/16/24 at 2321, For 24 hours, Look-alike/sound-alike medication - verify indication for use. Duration of therapy is not to exceed 5 days. Maximum recommended dose + 120mg/24 hours. 0506 (Given - Provid er: Sayda Watts RN)1112 (Given - Provider: Bonnie Bush RN) LORazepam (ATIVAN) injection 1 mg 1 mg, intravenous, As needed, anxiety, Starting on Mon12/17/24 at 0311, To be given before MRI due to claustrophobia Look-alike/sound-alike medication - verify indication for use;IV use requires increased monitoring of HR,BP,Respirations and Pulse Oximetry;For IV-dilute with equal volume PF sod chloride, Indication: Procedural Moderate Sedation magnesium sulfate IVPB 1000 mg/100 mL in dextrose 5% (10 mg/mL premix) 1,000 mg, intravenous, at 100 mL/hr, Administer over 60 Minutes, Every 6 hours PRN, headache, Starting on Mon12/16/24 at 2321, Infuse each gram over 60 minutes. magnesium sulfate IVPB 2000 mg/50 mL in iso-osmotic water (40 mg/mL premix) 2,000 mg, intravenous, at 25 mL/hr, Administer over 120 Minutes, As needed, Magnesium level 1.7 to 1.9 mg/dL, or Ionized Magnesium level 0.45 to 0.5 mmol/L., Starting on Mon12/16/24 at 2244, Recheck magnesium level 4 hours after infusion complete. With each magnesium result continue the replacement orders as needed. magnesium sulfate IVPB 4000 mg/100 mL in iso-osmotic water (40 mg/mL premix) 4,000 mg, intravenous, at 25 mL/hr, Administer over 240 Minutes, As needed, Magnesium level 1.6 mg/dL or less, or Ionized Magnesium level 0.44 mmol/L or less, Starting on Mon12/16/24 at 2244, Recheck magnesium level 4 hours after infusion complete. With each magnesium result continue the replacement orders as needed. metoclopramide (REGLAN) injection 10 mg 10 mg, intravenous, Every 6 hours PRN, headache, Starting on Mon12/16/24 at 2321, Administer over 2 minutes. potassium chloride (K-TAB,KLOR-CON) CR tablet 30-50 mEq(Linked Group 2) 30-50 mEq, oral, As needed, potassium supplementation, Starting on Mon12/16/24 at 2244, Progress to oral potassium replacement when patient tolerating oral intake. If dose administered, recheck potassium level 4 hours after last dose. For potassium level 3.4 to 3.8 mmol/L and GFR 30 mL/min or greater=30 mEq. For potassium level 3.1 to 3.3 mmol/L and GFR 30 mL/min or greater=40 mEq. For potassium level 3 mmol/L or less and GFR 30 mL/min or greater=50 mEq. Do not crush or chew. potassium chloride (KAYCIEL) 20 mEq/15 mL solution 30-50 mEq(Linked Group 2) 30-50 mEq, oral, As needed, potassium supplementation, Starting on Mon12/16/24 at 2244, Progress to oral potassium replacement when patient tolerating oral intake. If dose administered, recheck potassium level 4 hours after last dose. For potassium level 3.4 to 3.8 mmol/L and GFR 30 mL/min or greater=30 mEq. For potassium level 3.1 to 3.3 mmol/L and GFR 30 mL/min or greater=40 mEq. For potassium level 3 mmol/L or less and GFR 30 mL/min or greater=50 mEq. Must dilute before use - Mix in 3-8 ounces of water or juice before administration When administering in feeding tube, flush before and after per policy and monitor potassium levels sod phos di, mono-K phos mono (K-PHOS NEUTRAL) 250 mg tablet 2 tablet(Linked Group 3) 2 tablet, oral, As needed, for phosphorus level 2.3 mg/dL or less., Starting on Mon12/16/24 at 2244, Administer oral dose if patient tolerating PO. If dose administered, recheck phosphorus level 4 hours after last dose. Look-alike/sound-alike medication - verify indication for use. Give with a full glass of water. sodium chloride 0.9 % bolus 250 mL, intravenous, at 484 mL/hr, Administer over 31 Minutes, Every 6 hours PRN, headache, Starting on Mon12/16/24 at 2320 sodium chloride 0.9 % flush 3 mL 3 mL, intravenous, As needed, line care, before and after each intermittent use, Starting on Mon12/16/24 at 2244 2255 (Given - Provider: Hoang Lynch RN) sodium chloride 0.9 % infusion 20 mL/hr, intravenous, Continuous PRN, to maintain patency of lines, Starting on Mon12/16/24 at 2244, For 1 day sodium phosphate 20 mmol in sodium chloride 0.9 % 100 mL IVPB(Linked Group 3) 20 mmol, intravenous, at 26.7 mL/hr, Administer over 4 Hours, As needed, for phosphorus level 2.3 mg/dL or less., Starting on Mon12/16/24 at 2244, Administer IV dose if NPO or not tolerating PO. Administer over 4 hours via dedicated line (central line). If administered, recheck phosphorus level 4 hours after infusion complete. Infuse using central line access. sodium phosphate 20 mmol in sodium chloride 0.9 % 250 mL IVPB(Linked Group 3) 20 mmol, intravenous, at 42.8 mL/hr, Administer over 6 Hours, As needed, for phosphorus level 2.3 mg/dL or less, Starting on Mon12/16/24 at 2244, Administer IV dose if NPO or not tolerating PO. Administer over 6 hours via dedicated line (peripheral line). If administered, recheck phosphorus level 4 hours after infusion complete. Linked Groups Order Group 1: acetaminophen (OFIRMEV) IVPB Premix 1,000 mgJump to med 1,000 mg, intravenous, at 400 mL/hr, Administer over 15 Minutes, Every 6 hours scheduled, First dose on Mon12/17/24 at 0100, For 24 hours And diphenhydrAMINE (BENADRYL) injection 25 mgJump to med 25 mg, intravenous, Every 6 hours, First dose on Mon12/17/24 at 0100, Look-alike/sound-alike medication - verify indication for use. And prochlorperazine (COMPAZINE) injection 5 mgJump to med 5 mg, intravenous, Every 6 hours, First dose on Mon12/17/24 at 0100, When administered via IV Push, do not exceed 5 mg per minute And magnesium sulfate 500 mg in sodium chloride 0.9 % 50 mL IVPBJump to med 500 mg, intravenous, at 25.5 mL/hr, Administer over 120 Minutes, Every 6 hours, First dose on Mon12/17/24 at 0100, For 4 doses And sodium chloride 0.9 % bolusJump to med 500 mL, intravenous, at 492 mL/hr, Administer over 61 Minutes, Every 6 hours, First dose on Mon12/17/24 at 0100, For 4 doses Group 2: potassium chloride (K-TAB,KLOR-CON) CR tablet 30-50 mEqJump to med 30-50 mEq, oral, As needed, potassium supplementation, Starting on Mon12/16/24 at 2244, Progress to oral potassium replacement when patient tolerating oral intake. If dose administered, recheck potassium level 4 hours after last dose. For potassium level 3.4 to 3.8 mmol/L and GFR 30 mL/min or greater=30 mEq. For potassium level 3.1 to 3.3 mmol/L and GFR 30 mL/min or greater=40 mEq. For potassium level 3 mmol/L or less and GFR 30 mL/min or greater=50 mEq. Do not crush or chew. Or potassium chloride (KAYCIEL) 20 mEq/15 mL solution 30-50 mEqJump to med 30-50 mEq, oral, As needed, potassium supplementation, Starting on Mon12/16/24 at 2244, Progress to oral potassium replacement when patient tolerating oral intake. If dose administered, recheck potassium level 4 hours after last dose. For potassium level 3.4 to 3.8 mmol/L and GFR 30 mL/min or greater=30 mEq. For potassium level 3.1 to 3.3 mmol/L and GFR 30 mL/min or greater=40 mEq. For potassium level 3 mmol/L or less and GFR 30 mL/min or greater=50 mEq. Must dilute before use - Mix in 3-8 ounces of water or juice before administration When administering in feeding tube, flush before and after per policy and monitor potassium levels Group 3: sodium phosphate 20 mmol in sodium chloride 0.9 % 250 mL IVPBJump to med 20 mmol, intravenous, at 42.8 mL/hr, Administer over 6 Hours, As needed, for phosphorus level 2.3 mg/dL or less, Starting on Mon12/16/24 at 2244, Administer IV dose if NPO or not tolerating PO. Administer over 6 hours via dedicated line (peripheral line). If administered, recheck phosphorus level 4 hours after infusion complete. Or sodium phosphate 20 mmol in sodium chloride 0.9 % 100 mL IVPBJump to med 20 mmol, intravenous, at 26.7 mL/hr, Administer over 4 Hours, As needed, for phosphorus level 2.3 mg/dL or less., Starting on Mon12/16/24 at 2244, Administer IV dose if NPO or not tolerating PO. Administer over 4 hours via dedicated line (central line). If administered, recheck phosphorus level 4 hours after infusion complete. Infuse using central line access. Or sod phos di, mono-K phos mono (K-PHOS NEUTRAL) 250 mg tablet 2 tabletJump to med 2 tablet, oral, As needed, for phosphorus level 2.3 mg/dL or less., Starting on Mon12/16/24 at 2244, Administer oral dose if patient tolerating PO. If dose administered, recheck phosphorus level 4 hours after last dose. Look-alike/sound-alike medication - verify indication for use. Give with a full glass of water. documented in this encounter Additional Health Concerns Assessment Noted Time PHQ-9 Depression Total Score: 024 2:35 PM EST A Body Mass Index follow-up plan has been documented for the patient 06/19/2024 3:12 PM EST documented as of this encounter Care Teams Shop Foreman Relationship Specialty Start Date End Date Akilah Mendes APRN-FNP [address] [place] [address] PCP - General Family Medicine 10/09/23 documented as of this encounter
--- OUTSIDE RECORDS SUMMARY | 2024-12-19 16:45 | XMS_ITS | Encounter Summary ---
Author Organization [facility] Address [address] [facility] [place] [address] Care Team Providers Care Coordinator Volunteer Services Name Role Phone Unavailable Primary Care Provider Unavailabl e Encounter Details Date Type Department Care Team (Late st Contact Info) Description 12/16/2024 Results Follow-Up [facility] [address] [place] [address] Arnold German PA [address] [facility] [address] [place] [address] Social History Tobacco Use Types Packs/Day Years Used Date Smoking Tobacco: Never Assessed Comments Unknown Sex and Gender Information Value Date Recorded Sex Assigned at Not on file Legal Sex Female 7:32 PM EDT Gender Identity Not on file Sexual Orientation Not on file documented as of this encounter Plan of Treatment Not on file documented as of this encounter Visit Diagnoses Not on filedocumented in this encounter
--- OUTSIDE RECORDS SUMMARY | 2024-12-19 16:45 | XMS_ITS | Encounter Summary ---
Author Organization [facility] Address [id number] [address] [place] [address] Care Team Providers Care Expansion Envelope Maker Hand Name Role Phone Akilah Bowden HUMAN RESOURCES OFFICER-PHLEBOTOMY COORDINATOR Primary Care Provider [phone]- [phone] Reason for Visit * Reason Comments Med Refill Encounter Details Date Type Department Care Team (Late st Contact Info) Description 02/08/2021 Refill [facility] [address] [place] [address] [address] [id number] Silvana Khalil APRN-FABRICATOR FOAM RUBBER [address] [place] [address] Essential hypertension Social History Tobacco Use Types Packs/Day Years [...] week 10/23/2020 How often do you attend baptist or roman catholic serv ices? Never 10/23/2020 Do you belong to any clubs o r organizations such as baptist groups, unions, fraternal or athletic groups, or [...] 10/23/2020 PHQ-2 Answer Date Recorded Total Score 0 10/23/2020 [facility] - Occupational Stress Questionnaire Answer Date Recorded [...] Recorded Do you need help finding a [employer] career center and/or a training program? No 10/22/2020 Purpose - Life Answer Date Recorded I have a purpose and direction in my life. Agree 10/22/2020 Comments No Sex and Gender Information Value Date Recorded Sex Assigned at Not on file Legal Sex Female 7:43 AM EDT Gender Identity Not on file Sexual Orientation Not on file documented as of this encounter Plan of Treatment Upcoming Encounters Date Type Department Care Team (Late st Contact Info) Description 12/24/2024 2:30 PM EDT Office Visit [facility] [place] [address] [place] [address] Chin Edward MD [address] [place] [address] [address] [place] [address] documented as of this encounter Visit Diagnoses Diagnosis Essential hypertension Unspecified essential hypertension documented in this encounter Additional Health Concerns Infection Onset Date Last Indicated Resolved Time COVID-19 Rule-Out 08/07/2022 08/07/2022 08/07/2022 4:36 AM EST Assessment Noted Time PHQ-9 Depression Total Score: 0 10/24/19 21 1:00 PM EDT documented as of this encounter Care Teams Expansion Envelope Maker Hand Relationship Specialty Start Date End Date Akilah Bowden APRN-KATARINA [address] [place] [id number] PCP - General Family Medicine 10/09/23 documented as of this encounter
--- OUTSIDE RECORDS SUMMARY | 2024-12-19 16:45 | XMS_ITS | Encounter Summary ---
Author Organization [facility] Address [id number] [address] [place] [address] Care Team Providers Care Celery Tier Name Role Phone Akilah Bowedn APRN-FILENET DEVELOPER Primary Care Provider [phone]- [phone] Encounter Details Date Type Department Care Team (Late st Contact Info) Description 10/23/2023 Telephone [facility] [address] [address] Enma Purcell DO [address] [address] Social History Tobacco Use Types Packs/Day Years [...] week 10/23/2020 How often do you attend yazidi or religion serv ices? Never 10/23/2020 Do you belong to any clubs o r organizations such as yazidi groups, unions, fraternal [...] Answer Date Recorded Total Score 0 10/23/2020 [facility] Occupat ional Health - Occupational Stress Questionnaire Answer Date Recorded [...] Recorded Do you need help finding a [employer] center and/or a training program? No 10/22/2020 Hunger Screening Answer Date Recorded Within the past 12 months we worried whether our food would run out before we got money to buy more. Never True 08/07/2022 Within the past 12 months th e food we bought just didn't last and we didn't have money to get more. Never True 08/07/2022 Purpose - Life Answer Date Recorded I have a purpose and direction in my life. Agree 10/22/2020 Comments No Sex and Gender Information Value Date Recorded Sex Assigned at Not on file Legal Sex Female 7:43 AM EDT Gender Identity Not on file Sexual Orientation Not on file documented as of this encounter Miscellaneous Notes * Telephone Encounter - Sushant Garcia - 10/23/2023 12:40 PM EDT New patient (referral) scheduled on 12.14.[address] MOORE at [facility] for SOB. Please place CXR/CT/PFT order(s). Pt last CXR was on 08.07.22 * Telephone Encounter - Donna Rudolph RN - 10/23/2023 12:40 PM EDT Orders placed. Placed CXR & PFT orders in outgoing mail to patient to complete prior to appt on 12-14-23 Thanks! documented in this encounter Plan of Treatment Upcoming Encounters Date Type Department Care Team (Late st Contact Info) Description 12/24/2024 2:30 PM EDT Office Visit [facility] [address] [place] [address] Chin Edward MD [address] [place] [address] [address] [place] [address] documented as of this encounter Visit Diagnoses Not on filedocumented in this encounter Additional Health Concerns Assessment Noted Time PHQ-9 Depression Total Score: 0 10/24/19 21 1:00 PM EDT documented as of this encounter Care Teams Celery Tier Relationship Specialty Start Date End Date Akilah Bowden APRN-KATARINA [address] [place] [id number] PCP - General Family Medicine 10/09/23 documented as of this encounter
--- OUTSIDE RECORDS SUMMARY | 2024-12-19 16:45 | XMS_ITS | Encounter Summary ---
Author Organization [employer] [facility] Address [facility] [id number] [address] [place] [address] Care Team Providers Care Relay Tester Helper Name Role Phone Akilah Bowden APRN-ENCODING MACHINE OPERATOR Primary Care Provider [phone]- [phone] Encounter Details Date Type Department Care Team (Latest Contact Info) Description 12/16/2024 Travel Social History Tobacco Use Types Packs/Day Years [...] How often do you attend baptist or christianity serv ices? Never 10/23/2020 Do you belong [...] Answer Date Recorded Total Score 11 06/19/2024 [facility] of Occupat ional Health - Occupational Stress [...] Recorded Do you need help finding a [email or web address] career center and/or a training program? No [...] PM EDT Office Visit [facility] [address] [place] [address] Chin Edward MD [address] [place] [address] [address] [place] [address] documented as of this encounter Visit Diagnoses Not on filedocumented in this encounter Additional Health Concerns Assessment Noted Time PHQ-9 Depression Total Score: 11 024 2:35 PM EST A Body Mass Index follow-up plan has been documented for the patient 06/19/2024 3:12 PM EST documented as of this encounter Care Teams Relay Tester Helper Relationship Specialty Start Date End Date Akilah Bowden APRN-ENCODING MACHINE OPERATOR [address] [place] [address] PCP - General Family Medicine 10/09/23 documented as of this encounter
--- OUTSIDE RECORDS SUMMARY | 2024-12-19 16:45 | XMS_ITS | Encounter Summary ---
Author Organization [facility] Address [id number] [address] [place] [address] Care Team Providers Care Television Picture Tube Rebuilder Name Role Phone Akilah Bowden CONSTRUCTION QUALITY CONTROL MANAGER-ACCOUNT RESOLUTION ANALYST Primary Care Provider +1- [phone] Encounter Details Date Type Department Care Team (Late st Contact Info) Description 10/23/2023 Orders Only [facility] Pulmonary/Sleep Medicine [address] [facility] [address] [place] [address] Donna Rudolph, RN SOB (shortness of breath) (Primary Dx) Social History Tobacco Use Types Packs/Day Years [...] week 10/23/2020 How often do you attend congregation or zoroastrian serv ices? Never 10/23/2020 Do you belong to any clubs o r organizations such as congregation groups, unions, fraternal or athletic groups, or [...] Answer Date Recorded Total Score 0 10/23/2020 [facility] - Occupational Stress [...] Recorded Do you need help finding a [facility] and/or a training program? No [...] PM EDT Office Visit [facility] [place] [address] Chin Edward MD [address] [place] [address] 101, [address] [place] [address] documented as of this encounter Results * X-ray chest 2 views (12/13/2023 2:01 PM EDT) Anatomical Region Laterality Modality Chest N/A Computed Radiogr aphy 12/13/2023 2:04 PM EDT Narrative 12/13/2023 2:14 PM EDT HISTORY: SOB (shortness of breath) COMPARISON: None TECHNIQUE: PA and lateral views of the chest. FINDINGS: Cardiopericardial silhouette is within normal limits. No focal consolidative airspace opacities. No pneumothorax. No pleural effusions. IMPRESSION: No acute pulmonary process. Approved by Resident Geovanny Schwartz MD on 12/13/2023 2:04 PM IGregg MD have personally reviewed the image(s) and agree with and/or edited the report Finalized by Gregg Rogers MD on 12/13/2023 2:14 PM Procedure Note Gregg Rogers MD - 12/13/2023 HISTORY: SOB (shortness of breath) COMPARISON: None TECHNIQUE: PA and lateral views of the chest. FINDINGS: Cardiopericardial silhouette is within normal limits. No focalconsolidative airspace opacities. No pneumothorax. No pleural effusions. IMPRESSION: No acute pulmonary process. Approved by Resident Geovanny Schwartz MD on 12/13/2023 2:04 PM I, Gregg Rogers MD have personally reviewed the image(s) and agreewith and/or edited the report Finalized by Gregg Rogers MD on 12/13/2023 2:14 PM Enma Purcell DO IMG DIAGNOSTIC IMAGING ORDERA BLES Final Result * SPIROMETRY PRE/POST BRONCHODILATOR AND DLCO AND PLETHYSMOGRAPHY (12/13/2023 1:45 PM EDT) Narrative MANUALLY TRANSCRIBED RESULTS - 12/27/2023 10:07 AM EDT Patient gave good effort and data is reproducible FEV1/FVC is 64 with FEV1 82% predicted or 2.22 L and forced vital capacity 110% predicted or 3.85 L. There was 17% improvement in FEV1 post bronchodilator to a value of 96% predicted. Lung volumes reveal elevated residual volume 158% predicted or 2.66 L Diffusion capacity is mildly reduced at 78 Impression: Mild obstructive airflow defect is demonstrated with complete reversal post bronchodilator. There is evidence of hyperinflation and air trapping physiology. He is findings would favor diagnosis such as asthma. Isolated mild reduction in gas transfer may be related underlying emphysema, anemia, pulmonary vascular disease. Please correlate with clinical and radiographic data us Enma Purcell DO PFT ORDERABLES Final Result MANUALLY TRANSCRIBED RESULTS documented in this encounter Visit Diagnoses Diagnosis SOB (shortness of breath)- Primary Shortness of breath SOB (shortness of breath) Shortness of breath SOB (shortness of breath) Shortness of breath documented in this encounter Additional Health Concerns Assessment Noted Time PHQ-9 Depression Total Score: 0 10/24/19 21 1:00 PM EDT documented as of this encounter Care Teams Television Picture Tube Rebuilder Relationship Specialty Start Date End Date Akilah Bowden APRN-FNP [address] [place] [id number] PCP - General Family Medicine 10/09/23 documented as of this encounter
--- OUTSIDE RECORDS SUMMARY | 2024-12-19 16:45 | XMS_ITS | Encounter Summary ---
Author Organization [facility] Address [address] [place] [address] Care Team Providers Care Welder Apprentice Arc Name Role Phone Unavailable Primary Care Provider Unavailabl e Encounter Details Date Type Department Care Team (Late st Contact Info) Description 12/13/2024 Clinisync Result Encounter [facility] External Department Unsolicited Arnold German PA [address] [facility] [address] [place] [id number] Social History Tobacco Use Types Packs/Day Years Used Date Smoking Tobacco: Never Assessed Comments Unknown Sex and Gender Information Value Date Recorded Sex Assigned at Not on file Legal Sex Female 7:32 PM EDT Gender Identity Not on file Sexual Orientation Not on file documented as of this encounter Plan of Treatment Not on file documented as of this encounter Procedures Procedure Name Priority Date/Time Associated Diagnosis Comments ECG 12-LEAD 12/13/2024 1:39 PM EDT documented in this encounter Results * ECG 12-LEAD (12/13/2024 1:39 PM EDT) Anatomical Region Laterality Modality Other 12/13/2024 1:39 PM EDT Narrative 12/14/2024 7:43 AM EDT The [address] [address] Electrocardiograph Report Signed Patient: RAYA CASILLAS MR#: [id number] : 1980 Acct:[id number] Age/Sex: 44 / F ADM Date: 12/13/24 Loc: [place] 221-[address]: Janell Ta D.O. Ordering Physician: Arnold German Date of Service: 12/13/24 Procedure(s): ECG 12 lead Accession Number(s): [id number] cc: The [facility] Test Date: 2024-12-13 Pat Name: RAYA CASILLAS Department: Room: - Gender: Female Head Still Operator: : 1980 Requested By: [id number] Order Number: [id number] Reading MD: BROOKE CACERES M.D. Measurements Intervals Holstein Rate: 83 P: 44 NE: 146 QRS: 63 QRSD: 80 T: 10 QT: 374 QTc: 413 Interpretive Statements 1100 Sinus rhythm 4068 Nonspecific Twave abnormality Abnormal ECG Compared to ECG 06/12/2023 11:48:07 No significant changes Electronically Signed On 12-14-2024 7:42:38 EDT by BROOKE CACERES M.D. Dictated By: BROOKE CACERES Signed By: 12/14/24 0743 DD/ 1339 TD/TT: Thermometer Production Worker: Procedure Note Radiology, Radiologist, MD - 12/14/2024 [place] [address] Electrocardiograph Report Signed Patient: RAYA CASILLAS AMR#: [id number] : 1980Acct:[id number] Age/Sex: 44 / FADM Date: 12/13/24 Loc: [place] 221-[address]: Janell Ta D.O. Ordering Physician: Arnold German Date of Service: 12/13/24 Procedure(s): ECG 12 lead Accession Number(s): [id number] cc: The [facility] Test Date: 2024-12-13 Pat Name: RAYA CASILLAS Department: Room: - Gender: Female Head Still Operator: : 1980 Requested By: [id number] Order Number: [id number] Reading MD: BROOKE CACERES M.D. Measurements Intervals Holstein Rate: 83 P: 44 NE: 146 QRS: 63 QRSD: 80 T: 10 QT: 374 QTc: 413 Interpretive Statements 1100 Sinus rhythm 4068 Nonspecific Twave abnormality Abnormal ECG Compared to ECG 06/12/2023 11:48:07 No significant changes Electronically Signed On 12-14-2024 7:42:38 EDT by BROOKE CACERES M.D. Dictated By: BROOKE CACERES Signed By:12/14/24 0743 DD/ 1339 TD/TT: Thermometer Production Worker: us Arnold [facility] Final Resul t documented in this encounter Visit Diagnoses Not on filedocumented in this encounter
--- OUTSIDE RECORDS SUMMARY | 2024-12-19 16:45 | XMS_ITS | Encounter Summary ---
Author Organization [facility] Address [facility] [id number] [address] [place] [address] Care Team Providers Care Radiosonde Operator Name Role Phone Akilah Bowden APRN-IT APPLICATION DEVELOPMENT MANAGER Primary Care Provider [phone]- [phone] Encounter Details Date Type Department Care Team (Late st Contact Info) Description 11/17/2020 Orders Only [facility] Family Medicine [address] [place] [address] [place] [address] Ref Prov, [place] [address] Social History Tobacco Use Types Packs/Day Years [...] week 10/23/2020 How often do you attend latter-day or evangelical serv ices? Never 10/23/2020 Do you belong to any clubs o r organizations such as latter-day groups, unions, fraternal or athletic groups, or [...] Answer Date Recorded Total Score 0 10/23/2020 [facility] - Occupational Stress [...] Recorded Do you need help finding a [employer] center and/or a training program? No 10/22/2020 Purpose - Life Answer Date Recorded I have a purpose and direction in my life. Agree 10/22/2020 Comments No Sex and Gender Information Value Date Recorded Sex Assigned at Not on file Legal Sex Female 7:43 AM EDT Gender Identity Not on file Sexual Orientation Not on file COVID-19 Exposure Response Date Recorded In the last month, have you been in contact with someone who was confirmed or suspected to have Coronavirus / COVID-19? No / Unsure 11/16/2020 6:37 PM EDT documented as of this encounter Functional Status documented as of this encounter Plan of Treatment Upcoming Encounters Date Type Department Care Team (Late st Contact Info) Description 12/24/2024 2:30 PM EDT Office Visit [facility] [place] [address] [place] [address] Chin Edward MD [address] [place] [address] [address], [address] [place] [address] documented as of this encounter Procedures Procedure Name Priority Date/Time Associated Diagnosis Comments DRUG SCREEN, URINE Routine 11/04/2020 documented in this encounter Results * Drug Screen, Urine (11/04/2020) us Not In System Ref Prov URINE ORDERABLES Final Re sult MANUALLY TRANSCRIBED RESULTS documented in this encounter Visit Diagnoses Not on filedocumented in this encounter Additional Health Concerns Infection Onset Date Last Indicated Resolved Time COVID-19 Rule-Out 12/17/2020 12/17/2020 12/17/2020 9:26 PM EDT Enteric Rule-Out 12/17/2020 12/17/2020 12/24/2020 11:12 PM EDT COVID-19 Rule-Out 08/07/2022 08/07/2022 08/07/2022 4:36 AM EST Assessment Noted Time PHQ-9 Depression Total Score: 0 10/24/19 21 1:00 PM EDT documented as of this encounter Care Teams Radiosonde Operator Relationship Specialty Start Date End Date Akilah Bowden APRN-FNP [address] [place] [address] PCP - General Family Medicine 10/09/23 documented as of this encounter
--- OUTSIDE RECORDS SUMMARY | 2024-12-19 16:45 | XMS_ITS | Clinical Summary ---
Author Organization [employer] Address [facility] [place] [id number] [address] [place] [address] Care Team Providers Care Waste Management Specialist Name Role Phone Akilah Bowden SHEET METAL DUCT INSTALLER HELPER-OCCUPATIONAL THERAPY AIDE Primary Care Provider [phone] Allergies Active Allergy Reactions Criticality Noted Date Comments Promethazine 03/26/2020 shaky Medications omeprazole (PriLOSEC) 40 mg capsule Take 2 capsules (80 mg total) by mouth. 4 Active PREPARATION H 0.25-14-74.9 % ointment Insert 1 Application into the rectum every 6 (six) hours as needed. 4 Active mometasone-formo terol (DULERA) 200-5 mcg/actuation inhalerIndicatio ns:Moderate persistent asthma without complication Inhale 2 puffs in the morning and 2 puffs before bedtime. 13 g 11 4 Active albuterol (PROVENTIL HFA;VENTOLIN HFA) 90 mcg/actuation inhalerIndicatio ns:Bronchitis with bronchospasm,Mod erate persistent asthma without complication Inhale 2 puffs every 4 (four) hours as needed for wheezing. 18 g 11 4 Active umeclidinium (INCRUSE ELLIPTA) 62.5 mcg/actuation blister with deviceIndication s:Moderate persistent asthma without complication Inhale 1 puff in the morning. 30 each 11 4 Active famotidine (PEPCID) 20 mg tablet Take 1 tablet (20 mg total) by mouth. 4 Active PROCHAMBER spacer USE DIRECTED WITH INHALER 4 Active REGULOID, PSYLLIUM HUSK, 0.4 gram capsule Take 0.52 g by mouth. 4 Active diazePAM (VALIUM) 5 mg tabletIndication s:Claustrophobia One tab 30 minutes before MRI; may repeat up to 2 times for remaining MRI studies. Do not drive after use. 3 tablet 4 Active Additional Information Patient not taking.Reported on 12/17/2024 ondansetron (ZOFRAN) 8 mg tablet Take 1 tablet (8 mg total) by mouth every 8 (eight) hours as needed for nausea or vomiting. Active metFORMIN XR (GLUCOPHAGE XR) 500 mg 24 hr tablet Take 1 tablet (500 mg total) by mouth. 5 Active Active Problems Problem Noted Date Diagnosed Date Intractable migraine with st atus migrainosus, unspecified migraine type 12/16/2024 Obesity, morbid, BMI 40.0-49.9 06/19/2024 Acute narcotic withdrawal 11/15/2020 Epigastric pain 10/21/2020 Intractable abdominal pain 10/21/2020 Pancreatitis-post ERCP 10/09/2020 Choledocholithiasis 10/07/2020 Overview (10/07/2020): Added automatically from request for surgery [id number] Cholelithiasis 10/06/2020 Obstruction of cystic duct 10/06/2020 Overview (10/08/2020): Added automatically from request for surgery [id number] Biliary colic 09/26/2020 Encounters Date Type Department Care Team Description 12/16/2024 7:28 PM EDT - 12/17/2024 4:10 PM EDT Hospital Encounter [facility] [address] [place] [phone] Teressa Low DO Jindal, Valentina, MD Intractable migraine with status migrainosus, unspecified migraine type (Primary Dx) Discharge Disposition: Left Against Medical Advice or Discontinued Care 12/16/2024 Travel 10/18/2024 8:57 AM EDT - 10/18/2024 11:59 PM EDT Hospital Encounter [facility] Ultrasound [address] [place] [address] Fatty liver Discharge Disposition: Home 10/17/2024 Travel 10/08/2024 2:15 PM EDT Office Visit [facility] Obstetrics/Gynecolog y [address] [place] [phone] Elvi Chapman MD DUB (dysfunctional uterine bleeding) (Primary Dx) 10/08/2024 Travel from Last 3 Months Immunizations No known immunizations Family History Medical History Relation Name Comments Brain Tumor Brother Endocrine tumor Daughter Diabetes Maternal Aunt 1 Hypertension Maternal Aunt 1 Diabetes Maternal Aunt 2 Hypertension Maternal Aunt 2 Asthma Maternal Grandfather Cancer Maternal Grandfather Colon cancer Maternal Grandfather Diabetes Maternal Grandfather Emphysema Maternal Grandfather Hypertension Maternal Grandfather Diabetes Maternal Grandmother Hypertension Maternal Grandmother Diabetes Mother Endocrine tumor Mother Hypertension Mother Breast cancer Neg Hx Relation Name Status Comments Brother Alive Daughter Alive Father Maternal Aunt 1 Alive Maternal Aunt 2 Alive Maternal Grandfather Maternal Grandmother Mother Alive Social History Tobacco Use Types Packs/Day Years Used Date Smoking Tobacco: Every Day Cigarettes Smokeless Tobacco: Never Tobacco Cessation:Ready to Q uit: Not Asked; Counseling Given: Not Answered Alcohol Use Standard Drinks/Week Comments Not Currently [...] week 10/23/2020 How often do you attend jainism or confucianism serv ices? Never 10/23/2020 Do you belong to any clubs o r organizations such as jainism groups, unions, fraternal or athletic groups, or [...] Answer Date Recorded Total Score 11 06/19/2024 [facility] - Occupational [...] Recorded Do you need help finding a [employer] [facility] center and/or a training program? No 10/22/2020 [...] on file Sexual Orientation Not on file Last Filed Vital Signs Vital Sign Reading [...] Mass Index 42.74 12/17/2024 1:03 AM EDT Plan of Treatment Upcoming Encounters Date Type Department Care Team (Late st Contact Info) Description 12/24/2024 2:30 PM EDT Office Visit [facility] Neurology [place] [address] [place] [address] Chin Edward MD [address] [place] [address] [address] [place] [address] Health Maintenance Due Date Last Done Comments Tobacco Counseling 1980 DTaP,Tdap and Td Vaccines (1 - Tdap) 02/16/2000 Mammogram 03/05/2025 03/05/2024 Influenza Vaccine 03/31/2025 Adult BMI Follow Up Plan 06/19/2025 06/19/2024 Depression Screening 06/19/2025 06/19/2024 Tobacco Screening 12/16/2025 12/16/2024 Adult BMI Screening 12/17/2025 12/17/2024 Pap Smear 06/19/2027 06/19/2024, 06/19/2024 Colonoscopy 11/19/2028 11/20/2023, 11/20/2023 Medical Devices Implanted Type Area Steam [employer] Turbine Assembler Device Identifier Shelf Expiration Date Model / Serial / Lot Stnt Ercp Advanix 10x7 - Sgtin [id number] - [id number] Implanted:Qty: 1 on 10/08/2020 by August Valadez MD at [facility] Stent [employer] 07/03/2022 [id number] / GTIN [id number] / [id number] Description:Angier Scientifi c Advanix Biliary duodenal bend preloaded biliary stent with naviflex RX delivery system 10F x 7cm Procedures Procedure Name Priority Date/Time Associated Diagnosis [...] WO CONT STAT 12/16/2024 8:45 PM EDT COMPREHENSIVE METABOLIC PANEL STAT 12/16/2024 7:18 PM EDT CBC WITH AUTO DIFFERENTIAL STAT 12/16/2024 7:18 PM EDT US ABDOMEN LMTD Routine 10/18/2024 9:17 AM EDT Fatty liver HIGH RISK HPV W/DONTA Routine 06/19/2024 4:30 AM EST Cervical smear, as part of routine gynecological examination MAMM DIAGNOSTIC BILATERAL W CAD Routine 03/05/2024 1:07 PM EDT Breast pain, left PROVATION COLONOSCOPY Routine 11/20/2023 10:06 AM EDT from Last 3 Months or Most Recently Relevant to Health Maintenance Results * Lavender Top (12/17/2024 8:22 AM EDT) Extra Tube Auto Resulted 12/17/2024 10:01 AM EDT [facility] Blood Venous blood / Unknown 12/17/2024 8:22 AM EDT 12/17/2024 8:23 AM EDT us Alpa Joiner MD LAB BLOOD ORDERABLES Final R esult [facility] [address] [place] [address], [place] [phone] * Magnesium (12/17/2024 7:45 AM EDT) [facility] MAGNESIUM 2.5 1.8 - 2.6 mg/dL 12/17/2024 9:00 AM EDT [facility] Blood Venous blood / Unknown 12/17/2024 7:45 AM EDT 12/17/2024 7:45 AM EDT us Alpa Joiner MD LAB BLOOD ORDERABLES Final R esult [facility] [address] [place] [address], [place] [phone] * POCT , urine (12/17/2024 12:04 AM EDT) [facility] POC Urine Negative Negative 12/17/2024 12:06 AM EDT [facility] Urine 12/17/2024 12:0 4 AM EDT 12/17/2024 12:06 AM EDT us Manal W Devante DO POINT OF CARE TEST ORDERABLES Fi nal Result [facility] [address] [place] [address], [place] * (ABNORMAL) POCT Nursing Urine Macroscopic UA (12/17/2024 12:02 AM EDT) [facility] POC Urine Specific Wolverine 1.025 1.010, 1.015, 1.020, 1.025 12/17/2024 12:03 AM EDT [facility] POC Urine Leukocyte Esterase Negative Negative 12/17/2024 12:03 AM EDT [facility] POC Urine Nitrite Negative Negative 12/17/2024 12:03 AM EDT [facility] POC Urine pH 5.5 5.0, 6.0, 6.5, 7.0, 7.5, 8.0, 8.5, 5.5 12/17/2024 12:03 AM EDT [facility] POC Urine Protein Negative Negative 12/17/2024 12:03 AM EDT [facility] POC Urine Glucose Negative Negative 12/17/2024 12:03 AM EDT [facility] POC Urine Ketones Trace(A) Negative 12/17/2024 12:03 AM EDT [facility] POC Urine Urobilinogen 0.2 E.U./dL 12/17/2024 12:03 AM EDT [facility] POC Urine Bilirubin Negative Negative 12/17/2024 12:03 AM EDT [facility] POC Urine Blood/HGB Negative Negative 12/17/2024 12:03 AM EDT [facility] Urine 12/17/2024 12:0 2 AM EDT 12/17/2024 12:03 AM EDT us Manal W Devante DO POINT OF CARE TEST ORDERABLES Fi nal Result [facility] [address] [place] [address], [place] * Extra Urine (12/16/2024 11:24 PM EDT) Extra Tube Auto Resulted 12/17/2024 1:01 AM EDT [facility] Urine 12/16/2024 11:2 4 PM EDT 12/17/2024 12:50 AM EDT us Manal W Devante DO URINE ORDERABLES Final Result Performing Organization Address City/[facility]/ZIP Co de Phone Number [facility] [address] [place] [address], [place] [phone] * CT brain without contrast (12/16/2024 8:45 [...] Doug Javed MD on 12/16/2024 9:17 PM us Janell Samuels SHEET METAL DUCT INSTALLER HELPER-SOCIAL MEDIA CAMPAIGN MANAGER G CT ORDERABLES Felicia l Result * (ABNORMAL) CBC auto differential (12/16/2024 7:18 PM EDT) WBC 10.2 4 - 11 x10E9/L 12/16/2024 7:53 PM EDT [facility] RBC Count 5.55(H) 3.8 - 5.2 X10E12/L 12/16/2024 7:53 PM EDT [facility] Hemoglobin 12.8 11.7 - 15.5 g/dL 12/16/2024 7:53 PM EDT [facility] Hematocrit 39.5 35 - 47 % 12/16/2024 7:53 PM EDT [facility] MCV 71(L) 80 - 100 fL 12/16/2024 7:53 PM EDT [facility] MCH 23.0(L) 27 - 34 pg 12/16/2024 7:53 PM EDT [facility] MCHC 32.3 32 - 36 g/dL 12/16/2024 7:53 PM EDT [facility] RDW 18.7(H) 11.5 - 15 % 12/16/2024 7:53 PM EDT [facility] Platelet Count 455(H) 150 - 450 X10E9/L 12/16/2024 7:53 PM EDT [facility] MPV 7.7 7 - 12 fL 12/16/2024 7:53 PM EDT [facility] Neutrophils Relative 69.6 % 12/16/2024 7:53 PM EDT [facility] Lymphocytes Relative 19.6 % 12/16/2024 7:53 PM EDT [facility] Monocytes Relative 6.8 % 12/16/2024 7:53 PM EDT [facility] Eosinophils Relative 3.0 % 12/16/2024 7:53 PM EDT [facility] Basophils Relative 1.0 % 12/16/2024 7:53 PM EDT [facility] Neutrophils Absolute (A) 7.1(H) 1.5 - 6.6 10*3/uL 12/16/2024 7:53 PM EDT [facility] Lymphocytes Absolute 2.0 1.0 - 3.5 10*3/uL 12/16/2024 7:53 PM EDT [facility] Monocytes Absolute 0.7 0.0 - 0.9 10*3/uL 12/16/2024 7:53 PM EDT [facility] Eosinophils Absolute 0.3 0.0 - 0.4 10*3/uL 12/16/2024 7:53 PM EDT [facility] Basophils Absolute 0.1 0.0 - 0.2 10*3/uL 12/16/2024 7:53 PM EDT [facility] Differential Type AUTOMATED DIFFERENTIAL 12/16/2024 7:53 PM EDT [facility] Blood Venous blood / Unknown Venipuncture / Unknown 12/16/2024 7:18 PM EDT 12/16/2024 7:33 PM EDT us Manal W Devante DO LAB BLOOD ORDERABLES Final Resul t [facility] [address] [place] [address], * (ABNORMAL) Comprehensive metabolic panel (12/16/2024 7:18 PM EDT) SODIUM 136 134 - 146 mmol/L 12/16/2024 8:08 PM EDT [facility] POTASSIUM 4.2 3.5 - 5.0 mmol/L 12/16/2024 8:08 PM EDT [facility] CHLORIDE 99 98 - 109 mmol/L 12/16/2024 8:08 PM EDT [facility] CARBON DIOXIDE 26 22 - 32 mmol/L 12/16/2024 8:08 PM EDT [facility] ANION GAP 11 5 - 15 mmol/L 12/16/2024 8:08 PM EDT [facility] BLOOD UREA NITROGEN 13 5 - 23 mg/dL 12/16/2024 8:08 PM EDT [facility] CREATININE 0.79 0.40 - 1.00 mg/dL 12/16/2024 8:08 PM EDT [facility] Comment:METHOD TRACEABLE TO IDMS STANDARD GLUCOSE 112(H) 65 - 99 mg/dL 12/16/2024 8:08 PM EDT [facility] CALCIUM 9.7 8.5 - 10.5 mg/dL 12/16/2024 8:08 PM EDT [facility] TOTAL PROTEIN 7.9 6.0 - 8.0 g/dL 12/16/2024 8:08 PM EDT [facility] ALBUMIN 4.7 3.2 - 5.3 g/dL 12/16/2024 8:08 PM EDT [facility] ALKALINE PHOSPHATASE 74 39 - 130 U/L 12/16/2024 8:08 PM EDT [facility] AST 30 <=41 U/L 12/16/2024 8:08 PM EDT [facility] ALT 29 <=31 U/L 12/16/2024 8:08 PM EDT [facility] BILIRUBIN,TOTAL 0.6 0.3 - 1.2 mg/dL 12/16/2024 8:08 PM EDT [facility] EGFR Non-Race Dependent >90 >=60 ml/min/1.7 3sq.m 12/16/2024 8:08 PM EDT [facility] Comment: Reported eGFR is based on the CKD-EPI 2020 equation that does not use a race coefficient. Blood Venous blood / Unknown Venipuncture / Unknown 12/16/2024 7:18 PM EDT 12/16/2024 7:33 PM EDT us Manal W Devante DO LAB BLOOD ORDERABLES Final Resul t [facility] [address] [place] [address], [place] [phone] * Ultrasound abdomen limited (10/18/2024 9:17 AM EDT) Anatomical Region Laterality Modality Body, Abdomen Ultrasound 10/21/2024 4:01 AM EDT Narrative 10/21/2024 6:27 AM EDT US ABDOMEN LMTD Clinical history:Fatty liver hepatic [...] Jameson Brooks MD on 10/21/2024 6:27 AM Procedure Note Jameson Brooks MD - 10/21/2024 US ABDOMEN LMTD Clinical history:Fatty liver hepatic steatosis Comparison: 12/02/2020 Findings: Real time sonographic evaluation of the right upper quadrant is performed.Visualized portions of the pancreas appear unremarkable. Increased hepatic echotexture suggestive of diffuse hepatocellulardisease, most commonly diffuse hepatic steatosis. Main portal vein is patent with hepatopedal flow. Main portal veinvelocity 20.4 cm/s. The gallbladder is absent. Common bile duct is nondilated measuring 0.6cm. Impression: Increased hepatic echotexture suggestive of diffuse hepatocellulardisease, most commonly diffuse hepatic steatosis. No biliary dilatation postcholecystectomy. Finalized by Jameson Brooks MD on 10/21/2024 6:27 AM Katie Flores SHEET METAL DUCT INSTALLER HELPER-SOCIAL MEDIA CAMPAIGN MANAGER [facility] US ORDERABLES Final Result * High risk HPV w/donta (06/19/2024 4:30 AM EST) Hpv specimen type ThinPrep 06/20/2024 4:30 AM EST [facility] Hpv 16 Negative Negative^N egative 06/20/2024 2:26 PM EST [facility] Hpv 18 Negative Negative^N egative 06/20/2024 2:26 PM EST [facility] Other high risk hpv Negative Negative^N egative 06/20/2024 2:26 PM EST [facility] Comment: HPV types 31,33,35,39,45,52,56,58,59,66 and 68 DNA were undetectable. THINP 06/19/2024 4:30 AM EST 06/20/2024 4:31 AM EST Gisela Cordova SHEET METAL DUCT INSTALLER HELPER-SOCIAL MEDIA CAMPAIGN MANAGER LAB BLOOD ORDERABLES Fin al Result [facility] [address] [facility] [place] [address] [facility] [address] [place] [address] * Mammography diagnostic bilateral with CAD (03/05/2024 1:07 PM EDT) Anatomical Region Laterality Modality Breast Bilateral Mammography 03/05/2024 1:39 PM EDT Narrative 03/05/2024 1:43 PM EDT EXAM: MAMM DIAGNOSTIC BILATERAL W CAD, 03/05/2024 [...] 1:43 PM 1 b MAMM 1 YR Procedure Note Remy Min MD - 03/05/2024 EXAM: MAMM DIAGNOSTIC BILATERAL W CAD, 03/05/2024 12:50 PM CLINICAL INDICATIONS: Breast pain, left, COMPARISON: None TECHNIQUE: Digital mammographic images of both breasts were obtained the CC and MLOprojections. Tomosynthesis also performed. Computer-aided detection wasutilized. In addition, sonographic evaluation of the left breast was obtained in thearea of pain described clinically FINDINGS: There are scattered areas of fibroglandular density. Mammographically, there is no evidence of dominant mass lesion, clusteredlike calcification, or skin thickening to suggest malignancy. Sonographically, normal-appearing fibroglandular tissue seen throughoutthe visualized portions of the left breast. No cystic or solidabnormalities are seen. No sonographic evidence of malignancy wasdemonstrated. IMPRESSION: * Both breasts negative for evidence of malignancy mammographically * No sonographic evidence of malignancy was demonstrated in the leftbreast. BI-RADS: BI-RADS 1 - Negative Recommendation: Routine screening mammogram in 1 year Patient was given the results before leaving the department. Finalized by Remy Min MD on 03/05/2024 1:43 PM 1 b MAMM 1 YR Akilah Bowden SHEET METAL DUCT INSTALLER HELPER-OCCUPATIONAL THERAPY AIDE IMG MAMMOGRAPHY ORDERABLES Final Result * Colonoscopy Report (11/20/2023 10:06 AM EDT) Narrative SYSTEMGENERATED, DOCUMENTATION - 11/20/2023 10:06 AM EDT This order has been auto-finalized for image and report archival in PACs. *For full report details, please reach out to your physician. This image is visible to you in MyChart.* Jameson Jang DO IMG OR IMG ORDERABLES Final Result from Last 3 Months or Most Recently Relevant to Health Maintenance Insurance [place] [employer] Advance Directives * Full Code (Latest Code Status on File) Date Activated Date Inactivated Comments 11/16/2020 5:42 PM 11/26/2020 3:51 PM * Full Code Date Activated Date Inactivated Comments 11/15/2020 1:04 PM 11/16/2020 5:18 PM * Full Code Date Activated Date Inactivated Comments 10/23/2020 2:53 AM 10/31/2020 3:52 PM * Full Code Date Activated Date Inactivated Comments 10/22/2020 9:22 AM 10/23/2020 1:58 AM * Full Code Date Activated Date Inactivated Comments 10/06/2020 4:58 AM 10/13/2020 9:51 PM Care Teams Waste Management Specialist Relationship Specialty Start Date End Date Akilah Bowden APRN-KATARINA [address] [place], [place] [id number] PCP - General Family Medicine 10/09/23
--- OUTSIDE RECORDS SUMMARY | 2024-12-19 16:45 | XMS_ITS | Clinical Summary ---
Author Organization [facility] Address [address] [place] [address] Care Team Providers Care Talent Development Analyst Name Role Phone Unavailable Primary Care Provider Unavailabl e Encounters Date Type Department Care Team Description 12/16/2024 Results Follow-Up [facility] [address] [place] [address] Arnold German PA 12/13/2024 Clinisync Result Encounter [facility] Unsolicited Arnold German PA from Last 3 Months Social History Tobacco Use Types Packs/Day Years Used Date Smoking Tobacco: Never Assessed Comments Unknown Sex and Gender Information Value Date Recorded Sex Assigned at Not on file Legal Sex Female 7:32 PM EDT Gender Identity Not on file Sexual Orientation Not on file Plan of Treatment Not on file Procedures Procedure Name Priority Date/Time Associated Diagnosis Comments ECG 12-LEAD 12/13/2024 1:39 PM EDT from Last 3 Months Results * ECG 12-LEAD (12/13/2024 1:39 PM EDT) Anatomical Region Laterality Modality Other 12/13/2024 1:39 PM EDT Narrative 12/14/2024 7:43 AM EDT The [address] [address] Electrocardiograph Report Signed Patient: RAYA CASILLAS MR#: [id number] : 1980 Acct:[id number] Age/Sex: 44 / F ADM Date: 12/13/24 Loc: [place] 221-[address]: Janell Ta D.O. Ordering Physician: Arnold German Date of Service: 12/13/24 Procedure(s): ECG 12 lead Accession Number(s): [id number] cc: [facility] Test Date: 2024-12-13 Pat Name: RAYA CASILLAS Department: Room: - Gender: Female Candy Puller: : 1980 Requested By: [id number] Order Number: [id number] Reading MD: BROOKE CACERES M.D. Measurements Intervals Ross Rate: 83 P: 44 MT: 146 QRS: 63 QRSD: 80 T: 10 QT: 374 QTc: 413 Interpretive Statements 1100 Sinus rhythm 4068 Nonspecific Twave abnormality Abnormal ECG Compared to ECG 06/12/2023 11:48:07 No significant changes Electronically Signed On 12-14-2024 7:42:38 EDT by BROOKE CACERES M.D. Dictated By: BROOKE CACERES Signed By: 12/14/24 0743 DD/ 1339 TD/TT: Subway Conductor: Procedure Note Radiology, Radiologist, MD - 12/14/2024 [place] [address] Electrocardiograph Report Signed Patient: RAYA CASILLAS [facility]R#: [id number] : 1980Acct:[id number] Age/Sex: 44 / FADM Date: 12/13/24 Loc: [place] 221-[address]: Janell Ta D.O. Ordering Physician: Arnold German Date of Service: 12/13/24 Procedure(s): ECG 12 lead Accession Number(s): [id number] cc: [facility] Test Date: 2024-12-13 Pat Name: RAYA CASILLAS Department: Room: - Gender: Female Candy Puller: : 1980 Requested By: [id number] Order Number: [id number] Reading MD: BROOKE CACERES M.D. Measurements Intervals Ross Rate: 83 P: 44 MT: 146 QRS: 63 QRSD: 80 T: 10 QT: 374 QTc: 413 Interpretive Statements 1100 Sinus rhythm 4068 Nonspecific Twave abnormality Abnormal ECG Compared to ECG 06/12/2023 11:48:07 No significant changes Electronically Signed On 12-14-2024 7:42:38 EDT by BROOKE CACERES M.D. Dictated By: BROOKE CACERES Signed By:12/14/24 0743 DD/ 1339 TD/TT: Subway Conductor: us Arnold [facility] Final Resul t from Last 3 Months
--- OUTSIDE RECORDS SUMMARY | 2024-12-19 16:45 | XMS_ITS | Encounter Summary ---
Author Organization [facility] tem Address [id number] [address] [place] [address] Care Team Providers Care Scuba Diver Name Role Phone Akilah Bowden CHILD ATTENDANT-SERICULTURIST Primary Care Provider +1- [phone] Encounter Details Date Type Department Care Team (Late st Contact Info) Description 11/13/[address] [facility] [address] [address] [place] [address] Ethel Penny CMA Social History Tobacco Use Types Packs/Day Years [...] week 10/23/2020 How often do you attend druze or sikh serv ices? Never 10/23/2020 Do you belong to any clubs o r organizations such as druze groups, unions, fraternal or athletic groups, or [...] Answer Date Recorded Total Score 0 10/23/2020 [facility] - Occupational Stress [...] Recorded Do you need help finding a [employer] career center and/or a training program? No [...] Functional Status documented as of this encounter Miscellaneous Notes * Telephone Encounter - Ethel Penny CMA - 11/13/2020 3:23 PM EDT Patient called stating she is in sever upper abdominal pain, has been vomiting a lot and has diarrhea. She states she's taking Protonix 40 mg tablets daily. She states the percocet is not helping. Surgery Attendant informed her if unable to tolerate the pain she should go to ED due to being almost the weekend and not back in clinic till Monday. She verbalized understanding. Please advise, thank you documented in this encounter Plan of Treatment Upcoming Encounters Date Type Department Care Team (Late st Contact Info) Description 12/24/2024 2:30 PM EDT Office Visit [facility] [place] [address] [address] Chin Edward MD [address] [place] [address] [address] [place] [address] documented as of this encounter [...] documented as of this encounter Care Teams Scuba Diver Relationship Specialty Start Date End Date Akilah Bowden APRN-KATARINA [address] [place] [id number] PCP - General Family Medicine 10/09/23 documented as of this encounter
--- OUTSIDE RECORDS SUMMARY | 2024-12-19 16:45 | XMS_ITS | Encounter Summary ---
Author Organization [facility] Address [id number] [address] [place] [address] Care Team Providers Care Bath Steward/Stewardess Name Role Phone Akilah Bowden LOAD OUT PERSON-FILTER PRESS TENDER Primary Care Provider +1- [phone] Encounter Details Date Type Department Care Team (Late st Contact Info) Description 11/15/2020 [facility] [address] [facility] [place] [address] Karyn Patten APRN-ORCHESTRA DIRECTOR [address] [facility] [address] [place] [address] Social History Tobacco Use Types Packs/Day Years [...] week 10/23/2020 How often do you attend mormonism or jehovah's witness serv ices? Never 10/23/2020 Do you belong to any clubs o r organizations such as mormonism groups, unions, fraternal or athletic groups, or [...] Total Score 0 10/23/2020 [facility] - Occupational Stress Questionnaire Answer Date Recorded [...] Recorded Do you need help finding a [employer] career center and/or a training program? No [...] encounter Miscellaneous Notes * Telephone Encounter - Karyn Patten, DEVAN-ORCHESTRA DIRECTOR - 11/15/2020 11:05 AM EDT Call received from [facility] ED physician, patient presented there with nausea and vomiting with right upper quadrant pain. Had a CT 2 days ago at another ER visit which was unremarkable. She has no leukocytosis, LFTs are unremarkable other than ALT of 44, lipase 93. Afebrile with stable vital signs. Plan to discharge home with antiemetics. Asked him to speak with Dr. Hernandez's group as wellprior to discharging from ED. She is scheduled for ERCP 11/25 with you. documented in this encounter Plan of Treatment Upcoming Encounters Date Type Department Care Team (Late st Contact Info) Description 12/24/2024 2:30 PM EDT Office Visit [facility] [place] [address] [place] [address] Chin Edward MD [address] [place] [address] [address] [place] [address] documented as of this encounter [...] documented as of this encounter Care Teams Bath Steward/Stewardess Relationship Specialty Start Date End Date Akilah Bowden APRN-FNP [address] [place] [id number] PCP - General Family Medicine 10/09/23 documented as of this encounter
--- OUTSIDE RECORDS SUMMARY | 2024-12-19 16:45 | XMS_ITS | Clinical Summary ---
Author Organization [facility] Address [address] [place] [address] Phone Care Team Providers Care Line Erector Apprentice Name Role Phone Unavailable Primary Care Provider Unavailabl e Allergies Active Allergy Reactions Criticality Noted Date Comments Promethazine Other 11/17/2023 Medications pantoprazole (ProtoNix) 40 mg EC tablet Take 1 tablet (40 mg) by mouth once daily in the morning. Take before meals. 3 Active omeprazole (PriLOSEC) [address] capsule Take 1 capsule (40 mg) by mouth. 4 Active ferrous sulfate, 325 mg ferrous sulfate, tablet Take 1 tablet by mouth once daily with breakfast. Active albuterol 90 mcg/actuation inhaler Inhale 2 puffs every 4 hours if needed for wheezing. 3 Active phenyleph-min oil-petrolatum (Preparation H) 0.25-14-74.9 % rectal ointment Insert 1 Application into the rectum every 6 hours if needed for hemorrhoids. 4 Active polyethylene glycol (Glycolax, Miralax) 17 gram/dose powder Take 17 g by mouth once daily. 4 Active psyllium (Metamucil) 0.52 gram capsule Take 1 capsule (0.52 g) by mouth once daily. 4 Active gabapentin (Neurontin) 100 mg capsuleIndicati ons:Polyneuropa thy Take 1 capsule (100 mg) by mouth once daily at bedtime for 7 days, THEN 1 capsule (100 mg) 3 times a day for 7 days, THEN 2 capsules (200 mg) 3 times a day for 7 days, THEN 3 capsules (300 mg) 3 times a day. 30 capsule 11 4 Active Active Problems Problem Noted Date Diagnosed Date Gastro-esophageal reflux disease without esophag itis 11/01/2023 Hemorrhage of anus and rectum 11/01/2023 Hemorrhoids 11/01/2023 Intractable abdominal pain 10/21/2020 Pancreatitis ([facility]) 10/09/2020 Choledocholithiasis 10/07/2020 Overview (11/17/2023): Added automatically from request for surgery [id number] Biliary colic 09/26/2020 Family History Medical History Relation Name Comments Diabetes Mother Diabetes Mother's Sister Multiple sclerosis Neg Hx Relation Name Status Comments Mother Mother's Sister Social History Tobacco Use Types Packs/Day Years Used Date Smoking Tobacco: Every Day Cigarettes 0.5 30.1 Started: 11/16/1994 Passive Smoke Exposure: Never Smokeless Tobacco: Never Tobacco Cessation:Ready to Q uit: Not Asked; Counseling Given: Not Answered Alcohol Use Standard Drinks/Week Comments Not Currently 0 (1 standard drink = 0.6 oz pur e alcohol) Comments Unknown Sex and Gender Information Value Date Recorded Sex Assigned at Not on file Legal Sex Female 2:01 PM EST Gender Identity Not on file Sexual Orientation Not on file Last Filed Vital Signs Vital Sign Reading Time Taken Comments Blood Pressure 138/88 11/17/2023 1:49 PM EDT Pulse 90 11/17/2023 1:49 PM EDT Temperature - - Respiratory Rate 20 11/17/2023 1:49 PM EDT Oxygen Saturation - - Inhaled Oxygen Concentration - - Weight 127 kg (279 lb) 11/17/2023 1:49 PM EDT Height 162.6 cm (5' 4 ) 11/17/2023 1:49 PM EDT Body Mass Index 47.89 11/17/2023 1:49 PM EDT Plan of Treatment Health Maintenance Due Date Last Done Comments HIV Screening 1981 Lipid Panel 1981 Yearly Adult Physical 1981 MMR Vaccines (1 of 1 - Stand pastora series) 1982 Varicella Vaccines (1 of 2 - 13+ 2-dose series) 1994 Diabetes Screening 1999 Hepatitis C Screening 1999 Hepatitis B Vaccines (1 of 3 - 19+ 3-dose series) 02/16/2000 Pneumococcal Vaccine: Pediat rics and At-Risk Adult Patients (1 of 2 - PCV) 02/16/2000 Cervical Cancer Screening 2002 HPV/Cotest 2002 Pap Smear 2002 DTaP/Tdap/Td Vaccines (1 - Tdap) 2003 Mammogram 2021 COVID-19 Vaccine (1 - 2023-2 5 season) 2024 Influenza Vaccine (Season Ended) 2025 Zoster Vaccines (1 of 2) 2031 HIB Vaccines Aged Out No longer eligi ble based on patient's age to complete this topic HPV Vaccines Aged Out No longer eligi ble based on patient's age to complete this topic Hepatitis A Vaccines Aged Out No long er eligible based on patient's age to complete this topic IPV Vaccines Aged Out No longer eligi ble based on patient's age to complete this topic Meningococcal Vaccine Aged Out No laura harley eligible based on patient's age to complete this topic Rotavirus Vaccines Aged Out No longer eligible based on patient's age to complete this topic [place] [address] [place] [address]
--- OUTSIDE RECORDS SUMMARY | 2024-12-19 16:46 | XMS_ITS | Referral Summary ---
Author Organization [facility] Address [address] [place] [address] Care Team Providers Care Chip Separator Name Role Phone Unavailable Primary Care Provider Unavailabl e Social History Tobacco Use Types Packs/Day Years Used Date Smoking Tobacco: Never Assessed [place] Safety & Environment Answer Date Rec orded Fear of Current or Ex-Partner Not on file Emotionally Abused Not on file 09/21/2023 Physically Abused Not on file 09/21/2023 Sexually Abused Not on file 09/21/2023 Physically or Sexually Abused Not on file Sex and Gender Information Value Date Recorded Sex Assigned at Not on file Gender Identity Not on file Sexual Orientation Not on file Plan of Treatment Not on file
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
--- OUTSIDE RECORDS SUMMARY | 2024-12-19 16:46 | XMS_ITS | Clinical Summary ---
Author Organization [facility] Address [address] [place] [address] Care Team Providers Care Tool Salvage Worker Name Role Phone Unavailable Primary Care Provider [...]
--- OUTSIDE RECORDS SUMMARY | 2024-12-19 16:46 | XMS_ITS | Patient Health Record ---
Author Organization [facility] Address [address] [place] [address] Support Name Relationship Address Phone Jameson Emergency Contact Unknown Raya Gonzales Guarantor Unknown [phone] Reason For Referral No Information Medications Medication SIG (Take, Route, Frequency, Duration) Notes Start Date End Date Status Xanax 0.5 mg 1 tablet(s) TID for 30 days TO BE TAKEN NEEDED ONLY 10/01/2009 Active Percocet 325 mg-5 mg 1 Q6-8H for 30 days DO NO F ILL UNTIL 10/10/2009TO BE TAKEN NEEDED ONLY FOR SEVERE PAIN 10/01/2009 Active Mobic 15 mg 1 tablet(s) DAILY fo r 30 days 10/01/2009 Active Soma 350 mg 1 tablet BID for 30 days 10/01/2009 Active Zanaflex 4 mg *SEE INSTRUCTIONS tablet(s) for 30 days TAKE 1/2 TABLET IN THE AM & AT NOON TAKE 1 WHOLE TABLET IN THE EVENING 10/01/2009 Active CeleXA 10 mg 1 tablet(s) DAILY fo r 30 days 10/01/2009 Active Plan Of Treatment No Information
--- OUTSIDE RECORDS SUMMARY | 2024-12-19 16:46 | XMS_ITS | Clinical Summary ---
Author Organization [facility] Address [address] [place] [address] Care Team Providers Care Stockroom Selector Name Role Phone Akilah Bowden TENTERING MACHINE FEEDER - OVER THE HORIZON TARGETING SUPERVISOR Primary Care Provider [phone] -[phone] Allergies Active Allergy Reactions Criticality Noted Date Comments Promethazine Other (See Comments) 03/26/2020 shaky Medications INCRUSE ELLIPTA 62.5 MCG/ACT inhaler INHALE 1 PUFF BY MOUTH IN THE MORNING 4 Active Spacer/Aero-Ho lding Chambers ([facility]) BANG USE DIRECTED WITH INHALER 4 Active REGULOID 0.52 g capsule Take 1 capsule by mouth every morning 4 Active polyethylene glycol (GLYCOLAX) 17 GM/SCOOP powder 4 Active PREPARATION H 0.25-14-74.9 % rectal ointment APPLY RECTALLY DIRECTED TWICE DAILY NEEDED 4 Active omeprazole (PRILOSEC) 40 MG delayed release capsule Take 1 capsule by mouth 2 times daily 4 Active DULERA 200-5 MCG/ACT inhaler INHALE 2 PUFFS EVERY MORNING AND 2 PUFFS EVERY NIGHT AT BEDTIME 4 Active BISACODYL 5 MG EC tablet TAKE DIRECTED ON INSTRUCTIONAL SHEET FROM DOCTOR 4 Active gabapentin (NEURONTIN) 100 MG capsule 4 Active albuterol sulfate HFA (PROVENTIL;DEBBIE TOLIN;PROAIR) 108 (90 Base) MCG/ACT inhaler Inhale 2 puffs into the lungs every 4 hours as needed for Wheezing 4 Active ferrous sulfate (IRON 325) 325 (65 Fe) MG tablet Take 1 tablet by mouth daily (with breakfast) Active famotidine (PEPCID) 20 MG tabletIndicati ons:Chronic GERD Take 1 tablet by mouth nightly 180 tablet 1 Active Active Problems Problem Noted Date Diagnosed Date Gastro-esophageal reflux disease without esophag itis 11/01/2023 Hemorrhage of anus and rectum 11/01/2023 Hemorrhoids 11/01/2023 Acute narcotic withdrawal 11/15/2020 Encounter for support and co ordination of transition of care 10/21/2020 Epigastric pain 10/21/2020 Intractable abdominal pain 10/21/2020 Pancreatitis 10/09/2020 Choledocholithiasis 10/07/2020 Overview (01/23/2024): Added automatically from request for surgery [id number] Added automatically from request for surgery [id number] Cholelithiasis 10/06/2020 Obstruction of cystic duct 10/06/2020 Overview (01/23/2024): Added automatically from request for surgery [id number] Biliary colic 09/26/2020 Encounters Date Type Department Care Team Description 09/26/2024 Telephone [facility] SURGERY Part of [address] [address] Adeline Allen, TENTERING MACHINE FEEDER - WELLFIELD TECHNICIAN Other from Last 3 Months Social History Tobacco Use Types Packs/Day Years Used Date Smoking Tobacco: Never Assessed Comments Unknown Sex and Gender Information Value Date Recorded Sex Assigned at Not on file Legal Sex Female 1:49 PM EST Gender Identity Not on file Sexual Orientation Not on file Last Filed Vital Signs Vital Sign Reading Time Taken Comments Blood Pressure 157/97 01/23/2024 4:09 PM EDT Pulse 84 01/23/2024 4:09 PM EDT Temperature - - Respiratory Rate 18 01/23/2024 4:09 PM EDT Oxygen Saturation 97% 01/23/2024 4:09 PM EDT Inhaled Oxygen Concentration - - Weight 128.4 kg (283 lb) 01/23/2024 4:09 PM EDT Height 162.6 cm (5' 4 ) 12/26/2023 2:01 PM EDT Body Mass Index 48.58 12/26/2023 2:01 PM EDT Plan of Treatment Health Maintenance Due Date Last Done Comments Depression Screen 1993 Varicella vaccine (1 of 2 - 13+ 2-dose series) 1994 HIV screen 02/16/1996 Hepatitis C screen 1999 DTaP/Tdap/Td vaccine (1 - Tdap) 02/16/2000 Hepatitis B vaccine (1 of 3 - 19+ 3-dose series) 02/16/2000 Pap smear 2002 Cervical cancer screen 2011 HPV (without or with Pap) 2011 Diabetes screen 02/16/2016 Breast cancer screen 2021 Lipids 2021 COVID-19 Vaccine (1 - 2023-2 5 season) 2024 Flu vaccine (Season Ended) 2025 HPV vaccine Aged Out No longer eligi ble based on patient's age to complete this topic Hepatitis A vaccine Aged Out No longe r eligible based on patient's age to complete this topic Hib vaccine Aged Out No longer eligi ble based on patient's age to complete this topic Meningococcal (ACWY) vaccine Aged Out No longer eligible based on patient's age to complete this topic Meningococcal B vaccine Aged Out No l onger eligible based on patient's age to complete this topic Pneumococcal 0-49 years Vaccine Aged Out No longer eligible based on patient's age to complete this topic Polio vaccine Aged Out No longer elig ible based on patient's age to complete this topic Insurance [address] [place], [place] [id number] [place] [address] Care Teams Stockroom Selector Relationship Specialty Start Date End Date Akilah Bowden APRN - VIDYA [address] [place] [address] PCP - General Nurse Practitioner 12/26/23
[2024-12-19 16:47] VITALS: BP 151/94; PULSE 88; TEMP 36.4; O2SAT 98; BMI 42.7
[2024-12-19] MEDS: 0.9 % SODIUM CHLORIDE 1,000 ML 1000 ML IV (17:14)
[2024-12-19] MEDS: METHYLPREDNISOLONE SOD SUCC PF 125 MG/2 ML VIAL IVP (17:14)
[2024-12-19] MEDS: ONDANSETRON PF 4 MG/2 ML VIAL IV (17:15)
[2024-12-19] MEDS: KETOROLAC TROMETHAMINE 30 MG/ML VIAL IVP (17:16)
[2024-12-19 17:39] LABS: Basophils Percent Auto 0.5 % (0.2-2.0); Eosinophils Absolute Auto 0.2 10^3/uL (0.0-0.7); Eosinophils Percent Auto 2.3 % (0.9-7.0); Hematocrit 36.1 % (36.0-48.0); Immature Granulocytes Abs Auto 0.01 10^3/uL (0.00-0.03); Immature Granulocytes Pct Auto 0.1 % (0.0-0.5); Lymphocytes Absolute Auto 1.7 10^3/uL (1.2-3.8); Lymphocytes Percent Auto 20.1 % (20.5-60.0); Mean Corpuscular HGB Conc 30.5 g/dL (29.9-35.2); Mean Corpuscular Volume 75.4 fL (81.0-99.0); Mean Platelet Volume 9.5 fL (9.5-13.5); Monocytes Absolute Auto 0.4 10^3/uL (0.3-0.8); Platelet Count 407 10^3/uL (150-450); Red Blood Count 4.79 10^6/uL (4.20-5.40); Red Cell Distribution Width 17.6 % (11.0-15.0); White Blood Count 8.3 10^3/uL (4.0-11.0)
[2024-12-19 17:47] LABS: Anion Gap 14.9; BUN Creatinine Ratio 16.4; Calcium 8.8 mg/dL (8.5-10.1); Carbon Dioxide 23.7 mmol/L (21.0-32.0); Chloride 103 mmol/L (98-107); Estimated GFR (African America >60 (>=60 mL/min/1.73m^2); Estimated GFR (Non-African Ame >60 (>=60 mL/min/1.73m^2); Glucose 163 mg/dL (74-106); Potassium 3.6 mmol/L (3.5-5.1); Sodium 138 mmol/L (136-145)
[2024-12-19] MEDS: DIPHENHYDRAMINE HCL 50 MG/ML VIAL 25 MG IVP (17:53)
[2024-12-19] MEDS: ORPHENADRINE 60 MG/2 ML VIAL IV (17:53)
[2024-12-19] MEDS: PROCHLORPERAZINE 10 MG/2 ML VIAL IV (17:54)
--- NOTE | 2024-12-19 17:56 | ED.GENADUL1 ---
HPI HPI - General Adult General Chief complaint: Headache Stated complaint: HEADACHE Time Seen by Provider: 12/19/24 16:48 Source: patient Mode of arrival: walk-in Limitations: no limitations History of Present Illness HPI narrative: 44-year-old female presents to the emergency department for a chief complaint of headache. This is an ongoing issue for her. She has been to numerous emergency departments recently and received treatment and she states that none of the cocktails ever helped. She was admitted to this hospital just under a week ago overnight. She has an appointment with a new neurologist later this month. No localized weakness or fever or stiff neck. The pain is severe in her head and continuous. Related Data Home Medications ?Medication ?Instructions ?Recorded ?Confirmed metformin 500 mg tablet,extended 500 mg PO DAILY 08/08/24 12/19/24 release 24 hr omeprazole 40 mg capsule,delayed 40 mg PO BID 08/08/24 12/19/24 release ondansetron 8 mg disintegrating 8 mg PO BID PRN nausea and vomiting 10/20/24 12/19/24 tablet pantoprazole 40 mg tablet,delayed 40 mg PO Q12H 12/19/24 12/19/24 release Previous Rx's ?Medication ?Instructions ?Recorded amlodipine 5 mg tablet 5 mg PO DAILY #30 tabs 12/14/24 Allergies Allergy/AdvReac Type Severity Reaction Status Date / Time promethazine (From Phenergan) Allergy Severe Confusion Verified 08/12/24 07:29 Opioid HPI Opioid Management Most Recent Opioid Data: Last Pain Scale 8 Today, 16:47 Last Pain Assessment 12/13/24, 17:54 Last MAR Pain Assessment 12/13/24, 14:43 Last ORT Total Score 9 12/13/24, 17:54 Last ORT Risk Category High Risk 12/13/24, 17:54 Review of Systems ROS Narrative A ten point review of systems is negative except as noted above. [facility] Medical History (Updated 12/19/24 @ 18:26 by Benigno Araogn MD) Intractable migraine without aura and with status migrainosus ?G43.011 - Migraine without aura, intractable, with status migrainosus (ICD-10) Intractable headache ?R51.9 - Headache, unspecified (ICD-10) GERD (gastroesophageal reflux disease) ?K21.9 - Gastro-esophageal reflux disease without esophagitis (ICD-10) Diabetes ?E11.9 - Type 2 diabetes mellitus without complications (ICD-10) Surgical History (Updated 12/13/24 @ 17:51 by Mag Romo) History of cholecystectomy ?Z90.49 - Acquired absence of other specified parts of digestive tract (ICD-10) History of section ?Z98.891 - History of uterine scar from previous surgery (ICD-10) Family History (Updated 12/13/24 @ 17:52 by Danyell Lloyd) Grandmother Family history of myocardial infarction Family history of stroke Family history of hypertension Family history of diabetes mellitus Grandfather Family history of diabetes mellitus Family history of hypertension Family history of cancer Family history of COPD (chronic obstructive pulmonary disease) Mother Family history of diabetes mellitus Family history of hypertension Social History (Updated 12/13/24 @ 17:54 by Danyell Lloyd) Within the past year, how often did you have a drink containing alcohol: never Within the past year, how often did you have six or more drinks on one occasion: never Score interpretation: A score less than 3 is consistent with normal alcohol consumption. Smoking status: Current every day smoker Second hand tobacco smoke exposure: Yes Non-prescribed substance use: denies use Previous occupational history: [employer] Known occupational exposures/hazards: No Highest level of school completed/degree received: 9th grade Do you want help with school or training: No Are you now , , , , never or living with a partner: How often do you get together with friends or relatives: never How often do you attend jehovah's witness or denominational services: never Do you belong to any clubs or organizations such as jehovah's witness groups unions, fraternal or athletic groups, or school groups: no Total score: 1 Score interpretation: A score of less than or equal to 1 indicates the most socially isolated. Little interest or pleasure in doing things: not at all Feeling down, depressed, or hopeless: not at all Feel stressed/tense/nervous/anxious/difficulty sleeping: only a little Due to disability, difficulty making decisions: No Do you think of yourself as: straight/heterosexual Gender Identity: female Exam Narrative Exam Narrative: Nurses note and vital signs reviewed and patient is not hypoxic. General: The patient appears well and in no apparent distress. Patient is resting comfortably on cart. Skin: Warm, dry, no pallor noted. There is no rash noted. Head: Normocephalic, atraumatic; neck supple, no nuchal rigidity Eye: Normal conjunctiva, no drainage Ears, Nose, Mouth, and Throat: oral mucosa is moist. Nares patent. Cardiovascular: Regular Rate and Rhythm Respiratory: Patient is in no distress, no accessory muscle use, lungs are clear to auscultation, no wheezing, rales or rhonchi Back: non-tender GI: Soft and nontender Musculoskeletal: The patient has no evidence of calf tenderness, no pitting edema, symmetrical pulses noted bilaterally Neurological: A&O, normal speech; upper and lower extremity strength 5 out of 5 and symmetric. Cranial nerves II through XII intact Psychiatric: Cooperative Constitutional Vital Signs, click to edit/add: Last Vital Signs Temp 97.6 F 12/19/24 16:47 Pulse 88 12/19/24 16:47 Resp 20 12/19/24 16:47 BP 151/94 H 12/19/24 16:47 Pulse Ox 98 12/19/24 16:47 O2 Del Method Room Air 12/19/24 16:47 Course Vital Signs Vital signs: Vital Signs Temperature 97.6 F 12/19/24 16:47 Pulse Rate 88 12/19/24 16:47 Respiratory Rate 20 12/19/24 16:47 Blood Pressure 151/94 H 12/19/24 16:47 Pulse Oximetry 98 12/19/24 16:47 Oxygen Delivery Method Room Air 12/19/24 16:47 Temperature 97.6 F 12/19/24 16:47 Pulse Rate 88 12/19/24 16:47 Respiratory Rate 20 12/19/24 16:47 Blood Pressure 151/94 H 12/19/24 16:47 Pulse Oximetry 98 12/19/24 16:47 Oxygen Delivery Method Room Air 12/19/24 16:47 Medical Decision Making MDM Narrative Medical decision making narrative: The patient was medicated with numerous medications including Toradol, Benadryl, Solu-Medrol, Compazine, Ativan, and Zofran. She states she feels better. She was offered admission to the hospital but does not feel that it is needed and she wants to go home. Treatment diagnosis and follow-up were discussed with the patient. She has a neurology appointment in 5 days. At this point I do not suspect acute intracranial pathology. Differential Diagnosis Differential Diagnosis: Migraine headache, anxiety, atypical head Medical Records Medical records reviewed: Yes I reviewed the patient's medical records Lab Data Lab results reviewed: Yes I reviewed the patient's lab results Labs: Lab Results 12/19/24 Range/Units 17:17 WBC 8.3 (4.0-11.0) 10^3/uL RBC 4.79 (4.20-5.40) 10^6/uL Hgb 11.0 L (12.0-16.0) g/dL Hct 36.1 (36.0-48.0) % MCV 75.4 L (81.0-99.0) fL MCH 23.0 L (26.7-34.0) pg MCHC 30.5 (29.9-35.2) g/dL RDW 17.6 H (11.0-15.0) % Plt Count 407 (150-450) 10^3/uL MPV 9.5 (9.5-13.5) fL Neut % (Auto) 72.0 (43.0-75.0) % Lymph % (Auto) 20.1 L (20.5-60.0) % Quay % (Auto) 5.0 (1.7-12.0) % Eos % (Auto) 2.3 (0.9-7.0) % Baso % (Auto) 0.5 (0.2-2.0) % Neut # (Auto) 6.0 (1.4-6.5) 10^3/uL Lymph # (Auto) 1.7 (1.2-3.8) 10^3/uL Quay # (Auto) 0.4 (0.3-0.8) 10^3/uL Eos # (Auto) 0.2 (0.0-0.7) 10^3/uL Baso # (Auto) 0.0 (0.0-0.1) 10^3/uL Abs Immat Gran (auto) 0.01 (0.00-0.03) 10^3/uL Imm/Tot Granulo (auto) 0.1 (0.0-0.5) % Sodium 138 (136-145) mmol/L Potassium 3.6 (3.5-5.1) mmol/L Chloride 103 (98-107) mmol/L Carbon Dioxide 23.7 (21.0-32.0) mmol/L Anion Gap 14.9 BUN 10.0 (7.0-18.0) mg/dL Creatinine 0.61 (0.55-1.02) mg/dL Est GFR ( Amer) >60 (>=60 mL/min/1.73m^2) Est GFR (Non-Af Amer) >60 (>=60 mL/min/1.73m^2) BUN/Creatinine Ratio 16.4 Glucose 163 H (74-106) mg/dL Calcium 8.8 (8.5-10.1) mg/dL Discharge Plan Discharge Chief Complaint: Headache Clinical Impression: Headache Patient Disposition: Home, Self-Care Time of Disposition Decision: 18:26 Condition: Good Mode of Transportation: Private Vehicle Prescriptions / Home Meds: No Action amlodipine 5 mg tablet 5 mg PO DAILY Qty: 30 0RF metformin 500 mg tablet extended release 24 hr 500 mg PO DAILY omeprazole 40 mg capsule,delayed release(DR/EC) 40 mg PO BID ondansetron 8 mg tablet,disintegrating 8 mg PO BID PRN (Reason: nausea and vomiting) pantoprazole 40 mg tablet,delayed release (DR/EC) 40 mg PO Q12H Print Language: Cambodian Instructions: Acute Headache (ED) Referrals: Akilah Bowden NP [Primary Care Provider] - 1 week
[2024-12-19] MEDS: LORAZEPAM 2 MG/ML VIAL 0.5 MG IV (18:09)
== END 2024-12-19 18:29 | disposition home or self-care (01) ==
PROVIDERS: Emergency Provider Emergency Medicine; PCP Nurse Practitioner
DX: R51.9 Headache, unspecified (principal); Z90.49 Acquired absence of other specified parts of digestive tract; F17.200 Nicotine dependence, unspecified, uncomplicated
CPT/HCPCS: 36415; 80048; 85025; 96374; 96375; 99285; J0780; J1200; J1885; J2060; J2360; J2405; J2919

== ENCOUNTER 2025-03-21 12:55 | Emergency (ER) | payer OTHER, SELFPAY ==
[2025-03-21 13:00] VITALS: BP 133/96; PULSE 98; TEMP 36.7; O2SAT 99; BMI 41.9
--- OUTSIDE RECORDS SUMMARY | 2025-03-21 13:03 | XMS_ITS | Clinical Summary ---
Author Organization [facility] Address [address] [place] [address] Care Team Providers Care Spline Rolling Machine Job Setter Name Role Phone Unavailable Primary Care Provider [...]
--- OUTSIDE RECORDS SUMMARY | 2025-03-21 13:03 | XMS_ITS | Encounter Summary ---
Author Organization [facility] Address [id number] [address] [place] [address] Care Team Providers Care Loading Machine Operator Name Role Phone Akilah Bowden LIFE SKILLS EDUCATOR-LOCAL COMPANY TANKER DRIVER Primary Care Provider [phone]- [phone] Encounter Details Date Type Department Care Team (Late st Contact Info) Description 11/17/2020 Orders Only [facility] [address] [place] [address] [place] [address] Ref Prov, [place] [address] Social History Tobacco Use Types Packs/Day Years [...] How often do you attend jainism or cheondoism serv ices? Never 10/23/2020 Do you belong [...] Answer Date Recorded Total Score 0 10/23/2020 [facility] - Occupational [...] Recorded Do you need help finding a [employer] center and/or a training program? No 10/22/2020 [...] Care Team (Late st Contact Info) Description 03/25/2025 10:00 AM EDT Office Visit [facility] [place] [address] [place] [address] Chin Edward MD [address] [place] [address] [address], [address] [place] [address] documented as of this encounter [...] documented as of this encounter Care Teams Loading Machine Operator Relationship Specialty Start Date End Date Akilah Bowden APRN-FNP [address] [place] [id number] PCP - General Family Medicine 10/09/23 documented as of this encounter
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
--- OUTSIDE RECORDS SUMMARY | 2025-03-21 13:03 | XMS_ITS | Clinical Summary ---
Author Organization [facility] Address [address] [place] [address] Care Team Providers Care Extended Insurance Clerk Name Role Phone Unavailable Primary Care Provider Unavailabl e Social History Tobacco Use Types Packs/Day Years Used Date Smoking Tobacco: Never Assessed [place] Safety & Environment Answer Date Rec orded Fear of Current or Ex-Partner Not on file Emotionally Abused Not on file 09/21/2023 Physically Abused Not on file 09/21/2023 Sexually Abused Not on file 09/21/2023 Physically or Sexually Abused Not on file Comments Unknown Sex and Gender Information Value Date Recorded Sex Assigned at Not on file Legal Sex Female 9:11 PM EDT Gender Identity Not on file Sexual Orientation Not on file Plan of Treatment Not on file
--- OUTSIDE RECORDS SUMMARY | 2025-03-21 13:03 | XMS_ITS | Encounter Summary ---
Author Organization [facility] Address [id number] [address] [place] [address] Care Team Providers Care Electric Car Operator Name Role Phone Akilah Bowden STRADDLE TRUCK DRIVER-FORENSIC AUDIT EXPERT Primary Care Provider [phone]- [phone] Encounter Details Date Type Department Care Team (Late st Contact Info) Description 10/23/2023 Orders Only [facility] [address] [facility] [address] [place] [address] Donna Rudolph, RN SOB (shortness [...] week 10/23/2020 How often do you attend restorationist or church serv ices? Never 10/23/2020 Do you belong to any clubs o r organizations such as restorationist groups, unions, fraternal or athletic groups, or [...] Answer Date Recorded Total Score 0 10/23/2020 [facility] - Occupational [...] Recorded Do you need help finding a [facility] [employer] career center and/or a training program? No [...] AM EDT Office Visit [facility] [place] [address] [place] [address] Chin Edward MD [address] [place] [address] [address] [place] [address] documented as of this encounter [...] documented as of this encounter Care Teams Electric Car Operator Relationship Specialty Start Date End Date Akilah Bowden APRN-FNP [address] [place] [address] PCP - General Family Medicine 10/09/23 documented as of this encounter
--- OUTSIDE RECORDS SUMMARY | 2025-03-21 13:03 | XMS_ITS | Encounter Summary ---
Author Organization [facility] Address [id number] [address] [place] [address] Care Team Providers Care Regulatory Associate Name Role Phone Akilah Bowden TRANSITION SPECIALIST-HANDLE BAR ASSEMBLER Primary Care Provider [phone]- [phone] Reason for Visit * Reason Comments Med Refill Encounter Details Date Type Department Care Team (Late st Contact Info) Description 02/08/2021 Refill [facility] [address] [place] [address] [place] [id number] Silvana Khalil APRN-COMMUNITY SERVICE WORKER [address] [place] [address] Essential hypertension Social History Tobacco Use Types [...] week 10/23/2020 How often do you attend latter day or zoroastrianism serv ices? Never 10/23/2020 Do you belong to any clubs o r organizations such as latter day groups, unions, fraternal or athletic groups, or [...] Answer Date Recorded Total Score 0 10/23/2020 [facility] - Occupational Stress Questionnaire Answer [...] Recorded Do you need help finding a [employer] career center and/or a training program? No [...] AM EDT Office Visit [facility] [place] [address] [place] [address] Chin Edward MD [address] [place] [address] 101, [address] [place] [address] documented as of this encounter Visit Diagnoses Diagnosis Essential hypertension Unspecified essential hypertension documented in this encounter Additional Health Concerns Infection Onset Date Last Indicated Resolved Time COVID-19 Rule-Out 08/07/2022 08/07/2022 08/07/2022 4:36 AM EST Assessment Noted Time PHQ-9 Depression Total Score: 0 10/24/19 21 1:00 PM EDT documented as of this encounter Care Teams Regulatory Associate Relationship Specialty Start Date End Date Akilah Bowden APRN-KATARINA [address] [place] [address] PCP - General Family Medicine 10/09/23 documented as of this encounter
--- OUTSIDE RECORDS SUMMARY | 2025-03-21 13:03 | XMS_ITS | Encounter Summary ---
Author Organization [facility] Address [address] [facility], [address] [place] [address] Care Team Providers Care Dental Office Manager Name Role Phone Akilah Bowden EXHIBITION CARVER - GEOCHEMIST Primary Care Provider [phone] -[phone] Reason for Visit * Reason Comments Medication Refill Encounter Details Date Type Department Care Team (Late st Contact Info) Description 02/17/2025 [facility] Part of [address] [place] [address] Adeline Allen, EXHIBITION CARVER - WIG MAKER [address] [place] [address] [address] [place] [address] Medication Refill Social History Tobacco Use Types Packs/Day Years Used Date Smoking Tobacco: Never Assessed Comments Unknown Sex and Gender Information Value Date Recorded Sex Assigned at Not on file Legal Sex Female 1:49 PM EST Gender Identity Not on file Sexual Orientation Not on file documented as of this encounter Plan of Treatment Not on file documented as of this encounter Visit Diagnoses Diagnosis Chronic GERD documented in this encounter Care Teams Dental Office Manager Relationship Specialty Start Date End Date Akilah Bowden APRN - NP [address] [place] [address] PCP - General Nurse Practitioner 12/26/23 documented as of this encounter
--- OUTSIDE RECORDS SUMMARY | 2025-03-21 13:03 | XMS_ITS | Encounter Summary ---
Author Organization [facility] Address [address] [facility] [place] [address] Care Team Providers Care Superintendent Seed Mill Name Role Phone Unavailable Primary Care Provider Unavailabl e Encounter Details Date Type Department Care Team (Late st Contact Info) Description 12/16/2024 Results Follow-Up [facility] [address] [place] [address] Arnold German PA [address] [place] [address] ECG 12-LEAD Social History Tobacco Use Types Packs/Day Years [...]
--- OUTSIDE RECORDS SUMMARY | 2025-03-21 13:03 | XMS_ITS | Clinical Summary ---
Author Organization [employer] tem Address [id number] [address] [place] [address] Care Team Providers Care Manager Behavior Name Role Phone Akilah Bowden AUTOMOTIVE PAINT TECHNICIAN-EMAIL MARKETING EXECUTIVE Primary Care Provider +1- [phone] Allergies Active Allergy Reactions Criticality Noted Date Comments Promethazine 03/26/2020 shaky Medications omeprazole (PriLOSEC) 40 mg capsule Take 2 capsules (80 mg total) by mouth. 10/19/19 24 Active mometasone-formote rol (DULERA) 200-5 mcg/actuation inhalerIndications :Moderate persistent asthma without complication Inhale 2 puffs in the morning and 2 puffs before bedtime. 13 g 11 12/14/19 24 Active albuterol (PROVENTIL HFA;VENTOLIN HFA) 90 mcg/actuation inhalerIndications :Bronchitis with bronchospasm,Moder ate persistent asthma without complication Inhale 2 puffs every 4 (four) hours as needed for wheezing. 18 g 12/14/19 24 Active umeclidinium (INCRUSE ELLIPTA) 62.5 mcg/actuation blister with deviceIndications: Moderate persistent asthma without complication Inhale 1 puff in the morning. 30 each 12/14/19 24 Active PROCHAMBER spacer 12/14/19 24 Active ondansetron (ZOFRAN) 8 mg tablet Take 1 tablet (8 mg total) by mouth every 8 (eight) hours as needed for nausea or vomiting. Active metFORMIN XR (GLUCOPHAGE XR) 500 mg 24 hr tablet Take 1 tablet (500 mg total) by mouth. 10/10/19 25 Active topiramate (TOPAMAX) 50 mg tabletIndications: Intractable migraine with status migrainosus, unspecified migraine type Take 2 tablets (100 mg total) by mouth in the morning and 2 tablets (100 mg total) before bedtime. 120 tablet 5 12/25/19 25 Active rizatriptan OUTSIDE SALES REPRESENTATIVE (MAXALT-OUTSIDE SALES REPRESENTATIVE) 10 mg disintegrating tabletIndications: Intractable migraine with status migrainosus, unspecified migraine type Dissolve 1 tablet (10 mg total) on tongue once as needed for migraine. May repeat in 2 hours if unresolved. Do not exceed 30 mg in 24 hours. 9 tablet 5 12/25/19 25 Active PREPARATION H 0.25-14-74.9 % ointment Insert 1 Application into the rectum every 6 (six) hours as needed. 10/09/19 24 025 Discontinu ed(Discont inued by another clinician) famotidine (PEPCID) 20 mg tablet Take 1 tablet (20 mg total) by mouth. 12/26/19 24 025 Discontinu ed(Discont inued by another clinician) REGULOID, PSYLLIUM HUSK, 0.4 gram capsule Take 0.52 g by mouth. 11/02/19 24 025 Discontinu ed(Discont inued by another clinician) diazePAM (VALIUM) 5 mg tabletIndications: Claustrophobia One tab 30 minutes before MRI; may repeat up to 2 times for remaining MRI studies. Do not drive after use. 3 tablet 01/26/20 24 025 Discontinu ed(Discont inued by another clinician) Active Problems Problem Noted Date Diagnosed Date Gastroesophageal reflux disease 12/24/2024 Type 2 diabetes mellitus with diabetic cataract 12/24/2024 Depression 12/24/2024 HENNA (generalized anxiety disorder) 12/24/2024 White matter disease 12/24/[address] atus migrainosus, unspecified migraine type 12/16/2024 Obesity, morbid, BMI 40.0-49.9 06/19/2024 Acute narcotic withdrawal 11/15/2020 Epigastric pain 10/21/2020 Intractable abdominal pain 10/21/2020 Pancreatitis-post ERCP 10/09/2020 Choledocholithiasis 10/07/2020 Overview (10/07/2020): Added automatically from request for surgery [id number] Cholelithiasis 10/06/2020 Obstruction of cystic duct 10/06/2020 Overview (10/08/2020): Added automatically from request for surgery [id number] Biliary colic 09/26/2020 Encounters Date Type Department Care Team Description 12/24/2024 2:30 PM EDT Office Visit [facility] [place] [address] [place] [address] Chin Edward MD Intractable migraine with status migrainosus, unspecified migraine type (Primary Dx); 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 ([facility]); White matter disease, unspecified; Primary hypertension; Smoking addiction; Choledocholithiasis; Obesity, morbid, BMI 40.0-49.9 ([facility]); HENNA (generalized anxiety disorder); Depression, unspecified depression type; Type 2 diabetes mellitus with diabetic cataract, unspecified whether manager terminal insulin use ([facility]); Gastroesophageal reflux disease, unspecified whether esophagitis present; Excessive daytime sleepiness; 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 Never 10/23/2020 Do you belong to any clubs o r organizations such as catholic groups, unions, fraternal or athletic groups, [...] Answer Date Recorded Total Score 11 06/19/2024 [facility] - Occupational Stress Questionnaire Answer Date [...] Recorded Do you need help finding a [facility] career center and/or a training program? No 10/22/2020 Hunger Screening Answer Date Recorded Within the past 12 months we worried whether our food would run out before we got money to buy more. Never True 12/24/2024 Within the past 12 months th e food we bought just didn't last and we didn't have money to get more. Never True 12/24/2024 Purpose - Life Answer Date Recorded I have a purpose and direction in my life. Agree 10/22/2020 Comments No Sex and Gender Information Value Date Recorded Sex Assigned at Not on file Legal Sex Female 7:43 AM EDT Gender Identity Not on file Sexual Orientation Not on file Last Filed Vital Signs Vital Sign Reading Time Taken Comments Blood Pressure 147/75 12/24/2024 2:36 PM EDT Pulse 71 12/24/2024 2:36 PM EDT Temperature 36.4 C (97.5 F) 12/17/2024 1:10 PM EDT Respiratory Rate 18 12/17/2024 1:10 PM EDT Oxygen Saturation 96% 12/17/2024 1:10 PM EDT Inhaled Oxygen Concentration - - Weight 112.9 kg (249 lb) 12/24/2024 2:36 PM EDT Height 162.6 cm (5' 4 ) 12/24/2024 2:36 PM EDT Body Mass Index 42.74 12/24/2024 2:36 PM EDT Plan of Treatment Upcoming Encounters Date Type Department Care Team (Late st Contact Info) Description 03/25/2025 10:00 AM EDT Office Visit [facility] [place] [address] [place] [address] Chin Edward MD [address] [place] [address] [address] [place] [address] Health Maintenance Due Date Last Done Comments Diabetic Ophthalmology Exam 1981 Statin Use: Diabetic 1981 Tobacco Counseling 1981 Diabetic Foot Exam 1999 DTaP,Tdap and Td Vaccines (1 - Tdap) 02/16/2000 Mammogram 03/05/2025 03/05/2024 Influenza Vaccine 03/31/2025 Depression Screening 06/19/2025 06/19/2024 Adult BMI Follow Up Plan 12/24/2025 12/24/2024 Adult BMI Screening 12/24/2025 12/24/2024 Tobacco Screening 03/09/2026 03/09/2025 Pap Smear 06/19/2027 06/19/2024, 06/19/2024 Colonoscopy 11/19/2028 11/20/2023, 11/20/2023 Medical Devices Implanted Type Area Relief Operator Device Identifier Shelf Expiration Date Model / Serial / Lot Stnt Ercp Advanix 10x7 - Sgtin [id number] - [id number] Implanted:Qty: 1 on 10/08/2020 by August Valadez MD at [facility] Stent [employer] 07/03/2022 [id number] / GTIN [id number] / [id number] Description:Torsten Costaentifi c Advanix Biliary duodenal bend preloaded biliary stent with naviflex RX delivery system 10F x 7cm Procedures Procedure Name Priority Date/Time Associated Diagnosis Comments HIGH RISK HPV W/CHANDRAKANT Routine 06/19/2024 4:30 AM EST Cervical smear, as part of routine gynecological examination MAMM DIAGNOSTIC BILATERAL W CAD Routine 03/05/2024 1:07 PM EDT Breast pain, left PROVATION COLONOSCOPY Routine 11/20/2023 10:06 AM EDT from Last 3 Months or Most Recently Relevant to Health Maintenance Results * High risk HPV w/chandrakant (06/19/2024 4:30 AM EST) Hpv specimen type ThinPrep 06/20/2024 4:30 AM EST [facility] Hpv 16 Negative Negative^N egative 06/20/2024 2:26 PM EST [facility] Hpv 18 Negative Negative^N egative 06/20/2024 2:26 PM EST [facility] Other high risk hpv Negative Negative^N egative 06/20/2024 2:26 PM EST [facility] Comment: HPV types 31,33,35,39,45,52,56,58,59,66 and 68 DNA were undetectable. THINP 06/19/2024 4:30 AM EST 06/20/2024 4:31 AM EST us Gisela Cordova AUTOMOTIVE PAINT TECHNICIAN-GLUE MOUNTER OPERATOR LAB BLOOD ORDERABLES Fin al Result [address], FIRST FLOOR [address] LAB [address] [facility], [address] [place] [address] * Mammography diagnostic bilateral with CAD (03/05/2024 [...] 1 b MAMM 1 YR Akilah Bowden AUTOMOTIVE PAINT TECHNICIAN-EMAIL MARKETING EXECUTIVE IMG MAMMOGRAPHY ORDERABLES Final Result * Colonoscopy [...] 4:58 AM 10/13/2020 9:51 PM Care Teams Manager Behavior Relationship Specialty Start Date End Date Akilah Bowden APRN-KATARINA [address] [place] [address] PCP - General Family Medicine 10/09/23
--- OUTSIDE RECORDS SUMMARY | 2025-03-21 13:03 | XMS_ITS | Encounter Summary ---
Author Organization [facility] tem Address [id number] [address] [place] [address] Care Team Providers Care Magnetic Resonance Imaging Coordinator Name Role Phone Akilah Bowden PANEL CUTTER-CONSULTING ACTUARY Primary Care Provider [phone]- [phone] Encounter Details Date Type Department Care Team (Late st Contact Info) Description 11/15/2020 [facility]Note 2] [address] [place] [address] Karyn Patten APRN-MUTUAL FUND ANALYST [address], [facility] [address] [place] [address] Social History Tobacco Use Types [...] week 10/23/2020 How often do you attend islam or roman catholic serv ices? Never 10/23/2020 Do you belong to any clubs o r organizations such as islam groups, unions, fraternal or athletic groups, or [...] Answer Date Recorded Total Score 0 10/23/2020 [facility] - Occupational Stress Questionnaire Answer Date [...] Recorded Do you need help finding a [employer] career center and/or a training program? No [...] Notes * Telephone Encounter - Karyn Patten, DEVAN-MUTUAL FUND ANALYST - 11/15/2020 11:05 AM EDT Call received from [facility] ED physician, patient presented there with [...] AM EDT Office Visit [facility] [place] [address] [place] [address] Chin Edward MD [address] [place] [address], [facility] [address] [place] [address] documented as of this encounter [...] documented as of this encounter Care Teams Magnetic Resonance Imaging Coordinator Relationship Specialty Start Date End Date Akilah Bowden APRN-FNP [address] [place] [address] PCP - General Family Medicine 10/09/23 documented as of this encounter
--- OUTSIDE RECORDS SUMMARY | 2025-03-21 13:03 | XMS_ITS | Clinical Summary ---
Author Organization [facility] Address [address] [place] [address] Phone Care Team Providers Care Wind Instrument Repairer Name Role Phone Unavailable Primary Care Provider [...] Hemorrhoids 11/01/2023 Intractable abdominal pain 10/21/2020 Pancreatitis ([facility]) 10/09/2020 Choledocholithiasis 10/07/2020 Overview (11/17/2023): Added automatically from request for surgery [id number] Biliary colic 09/26/2020 Family History Medical History Relation Name Comments Diabetes Mother Diabetes Mother's Sister Multiple sclerosis Neg Hx Relation Name Status Comments Mother Mother's Sister Social History Tobacco Use Types Packs/Day Years Used Date Smoking Tobacco: Every Day Cigarettes 0.5 30.3 Started: 11/16/1994 Passive Smoke Exposure: Never Smokeless [...] of 1 - Stand pastora series) 1982 Diabetes Screening 1999 Hepatitis C Screening 1999 Hepatitis B Vaccines (1 of 3 - 19+ 3-dose series) 02/16/2000 Pneumococcal Vaccine: Pediat rics and At-Risk Adult Patients (1 of 2 - PCV) 02/16/2000 Cervical Cancer Screening 2002 HPV/Cotest 2002 Pap Smear 2002 DTaP/Tdap/Td Vaccines (1 - Tdap) 2003 HPV Vaccines (1 - 3-dose sta ndard series) 02/16/2008 Mammogram 2021 COVID-19 Vaccine (1 - 2023-2 5 season) 2024 Influenza Vaccine (#1) 2025 Zoster Vaccines (1 of 2) 2031 [...]
--- OUTSIDE RECORDS SUMMARY | 2025-03-21 13:03 | XMS_ITS | Clinical Summary ---
Author Organization [facility] Address [address], [address] [place] [address] Care Team Providers Care Press Operator Helper Name Role Phone Akilah Bowden SLAT BASKET MAKER - ACCOUNT REPRESENTATIVE Primary Care Provider [phone] [phone] Allergies Active Allergy Reactions Criticality Noted Date Comments Promethazine Other (See Comments) 03/26/2020 shaky Medications INCRUSE ELLIPTA 62.5 MCG/ACT inhaler INHALE 1 PUFF BY MOUTH IN THE MORNING 4 Active Spacer/Aero-Ho [facility] ([facility]) BANG USE DIRECTED WITH INHALER 4 Active [...] (01/23/2024): Added automatically from request for surgery [id number] Added automatically from request for surgery [id number] Cholelithiasis 10/06/2020 Obstruction of cystic duct 10/06/2020 Overview (01/23/2024): Added automatically from request for surgery [id number] Biliary colic 09/26/2020 Encounters Date Type Department Care Team Description 02/17/2025 Refill [facility] Part of [address] [phone] Adeline Allen, SLAT BASKET MAKER - FELT DYEING MACHINE TENDER Medication Refill from Last 3 Months Social History Tobacco [...] 2011 HPV (without or with Pap) 2011 Breast cancer screen 2021 Lipids 2021 COVID-19 Vaccine ( - 2023-2 5 season) 2024 Flu vaccine (#1) 02/28/2025 HPV vaccine (No Doses Required) Completed Hepatitis A vaccine Aged Out No longe [...] to complete this topic [address] Care Teams Press Operator Helper Relationship Specialty Start Date End Date Akilah Bowden APRN - ACCOUNT REPRESENTATIVE [address] [place] [address] PCP - General Nurse Practitioner 12/26/23
--- OUTSIDE RECORDS SUMMARY | 2025-03-21 13:03 | XMS_ITS | Patient Health Record ---
Author Organization [facility] Address [address] [place] [address] Support Name Relationship Address Phone [facility] Emergency Contact Unknown [phone] Raya Gonzales Guarantor Unknown [phone] Reason For Referral No Information Medications Medication [...]
--- OUTSIDE RECORDS SUMMARY | 2025-03-21 13:03 | XMS_ITS | Encounter Summary ---
Author Organization [facility] tem Address [id number] [address] [place] [address] Care Team Providers Care Retail Client Solutions Analyst Name Role Phone Akilah Bowden CONSUMER LENDING MANAGER-BUSINESS MANAGER Primary Care Provider [phone]- [phone] Encounter Details Date Type Department Care Team (Late st Contact Info) Description 11/13/2020 Telephone [facility] [address] [facility] [address] [place] [address] Ethel Penny CMA Social History [...] week 10/23/2020 How often do you attend religious or judaism serv ices? Never 10/23/2020 Do you belong to any clubs o r organizations such as religious groups, unions, fraternal or athletic groups, or [...] Answer Date Recorded Total Score 0 10/23/2020 [facility] - Occupational [...] Recorded Do you need help finding a [employer] career center and/or a training program? No [...] She states the percocet is not helping. Quarry Plug And Feather Driller informed her if unable to tolerate the pain she should go to ED due to being almost the weekend and not back in clinic till Monday. She verbalized understanding. Please advise, thank you documented in this encounter Plan of Treatment Upcoming Encounters Date Type Department Care Team (Late st Contact Info) Description 03/25/2025 10:00 AM EDT Office Visit [facility] [place] [address] [place] [address] Chin Edward MD [address] [place] [address] [address] [place] [address] documented as of this encounter [...] documented as of this encounter Care Teams Retail Client Solutions Analyst Relationship Specialty Start Date End Date Akilah Bowden APRN-KATARINA [address] [place] [address] PCP - General Family Medicine 10/09/23 documented as of this encounter
--- OUTSIDE RECORDS SUMMARY | 2025-03-21 13:08 | XMS_ITS | CCD ---
Author Organization [facility] Care Team Providers Care Passport Application Examiner Name Role Phone Unavailable Primary Care Provider UnavailYOJANA Moran Attending Unavailable Cinthya COMPUTER GAME TESTER - CLOTH CUTTING INSPECTOR, [place] Primary Care Provider ADELINE FLORENTINO Referring Unavailable CINTHYA, SEVEN Primary Care Unavailable ADELINE FLORENTINO Referring Unavailable CINTHYA, SEVEN Primary Care Unavailable ADELINE FLORENTINO Referring Unavailable CINTHYA, SEVEN Primary Care Unavailable Cinthya COMPUTER GAME TESTER-BEAD STRINGER, [place] Primary Care Provider CINTHYA, SEVEN Referring Unavailable CINTHYA, SEVEN Primary Care Unavailable MARLON TILLMAN Admitting Unavailable MARLON TILLMAN Attending Unavailable MARLON TILLMAN Referring Unavailable CINTHYA, SEVEN Primary Care Unavailable MARLON TILLMAN Attending Unavailable MARLON TILLMAN Referring Unavailable CINTHYA, SEVEN Primary Care Unavailable LILY SNELL Attending Unavail able CINTHYA, SEVEN Primary Care Unavailable OFELIA TERRAZAS Attending Unavailable OFELIA TERRAZAS Referring Unavailable CINTHYA, SEVEN Primary Care Unavailable OFELIA TERRAZAS Attending Unavailable NINIKOFINA Kristen Referring Unavailable CINTHYA, SEVEN Primary Care Unavailable [...] Referring Unavailable CINTHYA, SEVEN Primary Care Unavailable STEPHANIE, CHAPARRITA Referring Unavailable CINTHYA, SEVEN Primary Care Unavailable [...] Referring Unavailable CINTHYA, SEVEN Primary Care Unavailable SERAFIN, ALLISON M Referring Unavailable CINTHYA, SEVEN Primary Care Unavailable SERAFIN, ALLISON M Attending Unavailable SERAFIN, ALLISON M Referring Unavailable CINTHYA, SEVEN Primary Care Unavailable DIANNA, ELVI Admitting Unavailable DIANNA, ELVI Attending Unavailable CINTHYA, SEVEN Primary Care Unavailable SERAFIN, ALLISON M Attending Unavailable CINTHYA, SEVEN Primary Care Unavailable JUNE, SHAMEKA Referring Unavailable CINTHYA, SEVEN Primary Care Unavailable Unavailable Primary Care Provider Unavailabl e CINTHYA, SEVEN Referring Unavailable CINTHYA, SEVEN Primary Care Unavailable ANDRES DUPONT Attending Unavailable STEPHANIE, CHAPARRITA Attending Unavailable CINTHYA, SEVEN Referring Unavailable CINTHYA, [...] Referring Unavailable CINTHYA, SEVEN Primary Care Unavailable ALLISON, EHAD Attending Unavailable MICHELLE GISELA M Referring Unavailable CINTHYA, SEVEN Primary Care Unavailable CINTHYA, SEVEN Primary Care Unavailable ([facility] ONLY), NEURO-CONSULTING Consulting Ivelisse vailable GIANLUCA PANDYA Admitting Unavailable JUANA BROWN Attending Unavailable Cinthya COMPUTER GAME TESTER-BEAD STRINGER, Seven Primary Care Provider Allergies Allergy Classification Reported Allergen(s) Allergy Type Date of Onset Reaction(s) Facility (10 sources) Promethazine; Translations: [PROMETHAZINE] Drug Allergy 03-26-2020 Other [facility] Work Phone: Medications Current Medications Medication Drug Class(es) Dates Sig (Normalized) Sig (Original) [id number] 200 actuat albuterol 0.09 mg/actuat metered dose inhaler (7 sources) beta2-Adrenergic Agonist Start: 12-15-2023 take 2 [...] INSTRUCTIONAL SHEET FROM DOCTOR 0 11/01/2023 Active ferrous sulfate 325 mg oral tablet (2 sources) take 1 tablet by mouth once daily at breakfast ferrous sulfate (IRON 325) 325 (65 Fe) MG tablet Take 1 tablet by mouth daily (with breakfast) 0 Active 60 actuat formoterol fumarate 0.005 mg/actuat / mometasone furoate 0.2 mg/actuat metered dose inhaler (6 sources) Corticosteroid, beta2-Adrenergic Agonist Start: 12-14-2023 take [...] End: 12-07-2024 gabapentin (NEURONTIN) 100 MG capsule 24 hr metFORMIN hydrochloride 500 mg extended release oral tablet (1 source) Biguanide Start: 10-09-2024 take 1 tablet by mouth every twenty-four hours metFORMIN XR (GLUCOPHAGE XR) 500 mg 24 hr tablet Take 1 tablet (500 mg total) by mouth. 10/09/2024 Active omeprazole 40 mg delayed release oral capsule (7 sources) Proton Pump Inhibitor Start: 11-29-2023 take [...] 10/19/2023 Active ondansetron 8 mg oral tablet (5 sources) Serotonin-3 Receptor Antagonist take 1 tablet [...] before meals. 11/21/2022 Active polyethylene glycol 3350 00912 mg powder for oral solution (2 sources) Osmotic Laxative Start: 10-09-19 polyethylene glycol (GLYCOLAX) 17 GM/SCOOP powder PROCHAMBER spacer (5 sources) Start: 12-14-19 24 PROCHAMBER spacer 12/14/2023 Active Start: 12-14-2023 PROCHAMBER spa cer USE DIRECTED WITH INHALER 12/14/2023 Active rizatriptan 10 mg disintegrating oral tablet (1 source) Serotonin-1b and Serotonin-1d Receptor Agonist Start: 12-24-2024 rizatriptan HOUSEKEEPING WORKER (MAXALT-HOUSEKEEPING WORKER) 10 mg disintegrating tablet Indications: Intractable migraine with status migrainosus, unspecified migraine type Dissolve 1 tablet (10 mg total) on tongue once as needed for migraine. May repeat in 2 hours if unresolved. Do not exceed 30 mg in 24 hours. 9 tablet 5 12/24/2024 Active Spacer/Aero-Holding Chambers ([facility]) BANG (1 source) Start: 12-14-2023 Spacer/Aero-Holdin g Chambers ([facility]) BANG USE DIRECTED WITH INHALER 0 12/14/2023 Active topiramate 50 mg oral tablet (1 source) Start: 12-24-2024 take 2 tablets by mouth in the morning, then take 2 tablets by mouth at bedtime topiramate (TOPAMAX) 50 mg tablet Indications: Intractable migraine with status migrainosus, unspecified migraine type Take 2 tablets (100 mg total) by mouth in the morning and 2 tablets (100 mg total) before bedtime. 120 tablet 5 12/24/2024 Active 7 actuat umeclidinium 0.0625 mg/actuat dry powder inhaler (6 sources) Anticholinergic Start: 12-14-2023 take 1 puff(s) [...] Drug Class(es) Dates Sig (Normalized) Sig (Original) diazePAM 5 mg oral tablet (5 sources) Benzodiazepine Start: 01-26-2024 End: 03-08-2025 diazePAM (VALIUM) 5 mg tablet Indications: Claustrophobia One tab 30 minutes before MRI; may repeat up to 2 times for remaining MRI studies. Do not drive after use. 3 tablet 01/26/2024 03/08/2025 Discontinued (Discontinued by another clinician) famotidine 20 mg oral tablet (6 sources) Histamine-2 Receptor Antagonist Start: 12-26-2023 End: 03-08-2025 famotidine (PEPCID) 20 mg tablet Take 1 tablet (20 mg total) by mouth. 12/26/2023 03/08/2025 Discontinued (Discontinued by another clinician) mineral oil 0.14 mg/mg / petrolatum 0.749 mg/mg / phenylephrine hydrochloride 0.0025 mg/mg rectal ointment (7 sources) alpha-1 Adrenergic Agonist Start: 10-09-2023 End: 03-08-2025 PREPARATION H 0.25-14-74.9 % ointment Insert 1 Application into the rectum every 6 (six) hours as needed. 10/09/2023 03/08/2025 Discontinued (Discontinued by another clinician) Start: 10-09-2023 PREPARATION H 0.25-14-74.9 % rectal ointment APPLY RECTALLY DIRECTED TWICE DAILY NEEDED 0 10/09/2023 Active psyllium 400 mg oral capsule (7 sources) Start: 11-02-2023 End: 03-08-2025 REGULOID, PSYLLIUM HUSK, 0.4 gram capsule Take 0.52 g by mouth. 11/02/2023 03/08/2025 Discontinued (Discontinued by another clinician) Start: 11-02-2023 take 1 capsule by mo uth once daily in the morning REGULOID 0.52 g capsule Take 1 capsule by mouth every morning 0 11/02/2023 Active Start: 11-01-2023 take 1 capsule by mo uth once daily psyllium (Metamucil) 0.52 gram capsule Take 1 capsule (0.52 g) by mouth once daily. 11/01/2023 Active Problems Active Problems Problem Classification Problem Date Documented Da te Episodic/Chronic Anxiety disorders (4 sources) Generalized anxiety disorder; Translations: [Claustrophobia] Onset: 12-24-2024 Chronic Asthma (3 sources) Asthma; Translations: [Unspecified asthma, uncomplicated] Onset: 4 08-29-2024 Chronic Biliary tract disease (20 sources) Common bile duct calculus; Translations: [Calculus of bile duct without cholangitis or cholecystitis without obstruction] Onset: 1 11-17-2023 Episodic Cataract (3 sources) Cataract of right eye; Translations: [Unspecified cataract] Onset: 4 11-17-2023 Chronic Coma; stupor; and brain damage (1 source) Daytime somnolence 03-09-2025 Episodic Conditions associated with dizziness or vertigo (3 sources) Vertigo; Translations: [Dizziness and giddiness] Onset: 4 11-17-2023 Episodic Diabetes mellitus with complications (3 sources) Type 2 diabetes mellitus with diabetic cataract; Translations: [Cataract due to diabetes mellitus type 2] Onset: 5 12-24-2024 Chronic Esophageal disorders (4 sources) Gastroesophageal reflux disease without esophagitis; Translations: [Gastro-esophageal reflux disease without esophagitis] Onset: 4 11-17-2023 Chronic Essential hypertension (2 sources) Essential (primary) hypertension; Translations: [Essential hypertension] Onset: 5 12-24-2024 Chronic Gastritis and duodenitis (1 source) Chronic superficial gastritis without bleeding; Translations: [Chronic superficial gastritis without bleeding] Onset: 4 Chronic Gastrointestinal hemorrhage (1 source) Hemorrhage of rectum and anus; Translations: [Hemorrhage of anus and rectum] Onset: 4 11-17-2023 Episodic Headache; including migraine (8 sources) Other migraine, not intractable, without status migrainosus; Translations: [Migraine, unspecified, intractable, with status migrainosus] Onset: 4 03-09-2025 Chronic Headache; including migraine (1 source) Headache Onset: 5 Episodic Headache; including migraine (1 source) Headache; including migraine Onset: 4 Hemorrhoids (1 source) Hemorrhoids; Translations: [Unspecified hemorrhoids] Onset: 4 11-17-2023 Episodic Mood disorders (2 sources) Depressive disorder; Translations: [Depression, unspecified depression type] Onset: 5 12-24-2024 Chronic Multiple sclerosis (3 sources) Multiple sclerosis; Translations: [Multiple sclerosis] Onset: 4 11-17-2023 Chronic Nausea and vomiting (2 sources) Nausea with vomiting, unspecified; Translations: [Vomiting, unspecified] Onset: 4 Episodic Other eye disorders (1 source) Other optic atrophy, bilateral; 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] 03-09-2025 Chronic Other female genital disorders (2 sources) [...] Chronic Other nervous system disorders (1 source) Demyelinating disease of central nervous system, unspecified; Translations: [Demyelinating disease of central nervous system, unspecified] Onset: 5 Chronic Other nervous system disorders (3 sources) Demyelinating disease of central nervous system; Translations: [Demyelinating disease of central nervous system, unspecified] 03-09-2025 Chronic Other nervous system disorders (1 source) Impairment of balance; Translations: [Other abnormalities of gait and mobility] 11-17-2023 Episodic Other nervous system disorders (2 sources) Other abnormalities of gait and mobility; Translations: [Other abnormalities of gait and mobility] Onset: 4 Episodic Other nervous system disorders (1 source) White matter disease, unspecified; Translations: [White matter disease, unspecified] Onset: 5 Episodic Other nervous system disorders (2 sources) White matter disease; Translations: [White matter disease, unspecified] Onset: 5 03-08-2025 Episodic Other nutritional; endocrine; and metabolic disorders (7 sources) Body mass index 40+ - severely obese; Translations: [Morbid (severe) obesity due to excess calories] Onset: 4 06-19-2024 Chronic Other nutritional; endocrine; and metabolic disorders (1 source) Body mass index (BMI) 45.0-49.9, adult; Translations: [Body mass index (BMI) 45.0-49.9, adult] Onset: 5 Chronic Other nutritional; endocrine; and metabolic disorders (2 sources) Morbid (severe) obesity due to excess calories; Translations: [Morbid (severe) obesity due to excess calories] Onset: 4 Chronic Residual codes; unclassified (1 source) Other hypersomnia; Translations: [Other hypersomnia] Onset: 5 Chronic Residual codes; unclassified (1 source) Daytime somnolence; Translations: [Other hypersomnia] 12-24-2024 Chronic Substance-related disorders (2 sources) Nicotine dependence, unspecified, uncomplicated; Translations: [Tobacco smoking behavior - finding] Onset: 5 12-24-2024 Chronic Unclassified (1 source) Esophagitis, unspecified without bleeding; Translations: [Esophagitis, unspecified without bleeding] Onset: 4 Unclassified (1 source) GERD/Rectal bleed Onset: 4 Unclassified (1 source) Post-op Onset: 5 Unclassified (1 source) EMB/[place]osee Onset: 4 Unclassified (1 source) Gynecologic Exam Onset: 4 Unclassified (1 source) Menstrual Problem Onset: 4 Unclassified (1 source) New Patient Onset: 4 Unclassified (1 source) migraine x 4 days, seen at [place] but discharged Onset: 5 Past or Other Problems Problem Classification Problem Date Documented Date Episodic/Chronic Abdominal pain (16 sources) Intractable abdominal pain; Translations: [Unspecified abdominal pain] Onset: 10-21-2020 11-17-2023 Episodic Acute bronchitis (1 source) Acute bronchitis, unspecified; Translations: [Acute bronchitis, unspecified] Onset: 06-17-2024 Episodic Mood disorders (6 sources) Mood disorders; Translations: [Depression, unspecified] Onset: 12-24-2024 06-19-2024 Nonmalignant breast conditions (1 source) Mastodynia; Translations: [Mastodynia] Onset: 03-05-2024 Episodic Other and unspecified benign neoplasm (1 source) Polyp of colon; Translations: [Polyp of colon] Onset: 11-20-2023 Episodic Other female genital disorders (2 sources) Other specified noninflammatory disorders of vagina; Translations: [Other specified noninflammatory disorders of vagina] Onset: 06-12-2024 Episodic Other injuries and conditions due to external causes (1 source) Foreign body in vagina Onset: 01-03-2024 Episodic Other lower respiratory disease (1 source) Shortness of breath; Translations: [Shortness of breath] Onset: 12-13-2023 Episodic Other nervous system disorders (2 sources) Anesthesia of skin; Translations: [Anesthesia of skin] Onset: 05-31-2024 Episodic Other screening for suspected conditions (not mental disorders or infectious disease) (4 sources) Other abnormal findings on diagnostic imaging of central nervous system; Translations: [Encounter for screening for cardiovascular disorders] Onset: 12-13-2023 Episodic Pancreatic disorders (not diabetes) (6 sources) Pancreatitis; Translations: [Acute pancreatitis without necrosis or infection, unspecified] Onset: 10-09-2020 11-17-2023 Episodic Screening and history of mental health and substance abuse codes (1 source) Encounter for screening for depression; Translations: [Encounter for screening for depression] Onset: 06-19-2024 Episodic Substance-related disorders (5 sources) Opioid withdrawal; Translations: [Opioid use, unspecified with withdrawal] Onset: 11-15-2020 11-15-2020 Episodic Unclassified (5 sources) Onset: 06-19-2024 Resolved: 03-09-2025 06-19-2024 Results Test Name Value Interpretation Reference Range Facility MAGNESIUMon 12-17-2024 Magnesium [Mass/Vol] 2.5 mg/dL Normal 1.8-2.6 [facility] Comment on above: Performed By: #### M G #### [facility] ([facility]) [address] [place] [address] VIR POCT NURSING URINE MACROSCOP IC UAon 12-17-2024 BILIRUBIN JOURDAN Negative Normal Negative [facility] Comment on above: Performed By: #### N UM #### [facility] ([facility]) [address] [place] [address] VIR BLOOD/HGB JOURDAN Negative Normal Negative [facility] Comment on above: Performed By: #### N UM #### [facility] ([facility]) [address] [place] [address] VIR GLUCOSE JOURDAN Negative Normal Negative [facility] Comment on above: Performed By: #### N UM #### [facility] ([facility]) [address] [place] [address] VIR KETONES JOURDAN Trace Abnormal Negative [facility] Comment on above: Performed By: #### N UM #### [facility] ([facility]) [address] [place] [address] VIR LEUKOCYTE ESTERASE JOURDAN Negative Normal Negative [facility] Comment on above: Performed By: #### N UM #### [facility] ([facility]) [address] [place] [address] VIR NITRITE JOURDAN Negative Normal Negative [facility] Comment on above: Performed By: #### N UM #### [facility] ([facility]) [address] [place] [address] VIR PH JOURDAN 5.5 Normal 5.0, 6.0, 6.5, 7.0, 7.5, 8.0, 8.5, 5.5 [facility] Comment on above: Performed By: #### N UM #### [facility] ([facility]) [address] [place] [address] VIR PROTEIN JOURDAN Negative Normal Negative [facility] Comment on above: Performed By: #### N UM #### [facility] ([facility]) [address] [place] [address] VIR SPECIFIC GRAVITY JOURDAN 1.025 Normal 1.010, 1.015, 1.020, 1.025 [facility] Comment on above: Performed By: #### N UM #### [facility] ([facility]) [address] [place] [address] VIR UROBILINOGEN JOURDAN 0.2 E.U./dL Normal [facility] Comment on above: Performed By: #### N UM #### [facility] ([facility]) [address] [place] [address] VIR POCT , URINE (NUCG) on 12-17-2024 Beta HCG ( test) Ql (U) Negative Normal Negative [facility] Comment on above: Performed By: #### N UCG #### [facility] ([facility]) [address] [place] [address] VIR CBC WITH AUTO DIFFERENTIALon 12-16-2024 BASOPHILS ABSOLUTE COUNT (10*3/UL) BY AUTOMATED COUNT 0.1 10*3/uL Normal 0.0-0.2 [facility] Comment on above: Performed By: #### C BCA #### [facility] ([facility]) [address] [place] [address] VIR BASOPHILS RELATIVE PERCENT BY AUTOMATED COUNT 1.0 % Normal [facility] Comment on above: Performed By: #### C BCA #### [facility] ([facility]) [address] [place] [address] VIR CELLAVISION DIFFERENTIAL TYPE AUTOMATED DIFFERENTIAL Normal [facility] Comment on above: Performed By: #### C BCA #### [facility] ([facility]) [address] [place] [address] VIR Eosinophils (Bld) [#/Vol] 0.3 10*3/uL Normal 0.0-0.4 [facility] Comment on above: Performed By: #### C BCA #### [facility] ([facility]) [address] [place] [address] VIR EOSINOPHILS RELATIVE PERCENT BY AUTOMATED COUNT 3.0 % Normal [facility] Comment on above: Performed By: #### C BCA #### [facility] ([facility]) [address] [place] [address] VIR Erythrocyte distribution width (RBC) [Ratio] 18.7 % High 11.5-15 [facility] Comment on above: Performed By: #### C BCA #### [facility] ([facility]) [address] [place] [address] VIR Hematocrit (Bld) [Volume fraction] 39.5 % Normal 35-47 [facility] Comment on above: Performed By: #### C BCA #### [facility] ([facility]) [address] [place] [address] VIR Hemoglobin (Bld) [Mass/Vol] 12.8 g/dL Normal 11.7-15.5 [facility] Comment on above: Performed By: #### C BCA #### [facility] ([facility]) [address] [place] [address] VIR LYMPHOCYTES ABSOLUTE COUNT (10*3/UL) BY AUTOMATED COUNT 2.0 10*3/uL Normal 1.0-3.5 [facility] Comment on above: Performed By: #### C BCA #### [facility] ([facility]) [address] [place] [address] VIR LYMPHOCYTES RELATIVE PERCENT BY AUTOMATED COUNT 19.6 % Normal [facility] Comment on above: Performed By: #### C BCA #### [facility] ([facility]) [address] [place] [address] VIR MCH (RBC) [Entitic mass] 23.0 pg Low 27-34 [facility] Comment on above: Performed By: #### C BCA #### [facility] ([facility]) [address] [place] [address] VIR MCHC (RBC) [Mass/Vol] 32.3 g/dL Normal 32-36 [facility] Comment on above: Performed By: #### C BCA #### [facility] ([facility]) [address] [place] [address] VIR MCV (RBC) [Entitic vol] 71 fL Low 80-100 [facility] Comment on above: Performed By: #### C BCA #### [facility] ([facility]) [address] [place] [address] VIR MONOCYTES ABSOLUTE COUNT (10*3/UL) BY AUTOMATED COUNT 0.7 10*3/uL Normal 0.0-0.9 [facility] Comment on above: Performed By: #### C BCA #### [facility] ([facility]) [address] [place] [address] VIR MONOCYTES RELATIVE PERCENT BY AUTOMATED COUNT 6.8 % Normal [facility] Comment on above: Performed By: #### C BCA #### [facility] ([facility]) [address] [place] [address] VIR NEUTROPHILS ABSOLUTE COUNT BY AUTOMATED COUNT 7.1 10*3/uL High 1.5-6.6 [facility] Comment on above: Performed By: #### C BCA #### [facility] ([facility]) [address] [place] [address] VIR NEUTROPHILS RELATIVE PERCENT BY AUTOMATED COUNT 69.6 % Normal [facility] Comment on above: Performed By: #### C BCA #### [facility] ([facility]) [address] [place] [address] VIR Platelet mean volume (Bld) [Entitic vol] 7.7 fL Normal 7-12 [facility] Comment on above: Performed By: #### C BCA #### [facility] ([facility]) [address] [place] [address] VIR Platelets (Bld) [#/Vol] 455 10*3/uL High 150-450 [facility] Comment on above: Performed By: #### C BCA #### [facility] ([facility]) [address] [place] [address] VIR RBC COUNT 5.55 X10E12/L High 3.8-5.2 [facility] Comment on above: Performed By: #### C BCA #### [facility] ([facility]) [address] [place] [address] VIR WBC (Bld) [#/Vol] 10.2 10*3/uL Normal 4-[address] [facility] Comment on above: Performed By: #### C BCA #### [facility] ([facility]) [address] [place] [address] VIR COMPREHENSIVE METABOLIC PANE Toribio 12-16-2024 Albumin [Mass/Vol] 4.7 g/dL Normal 3.2-5.3 [facility] Comment on above: Performed By: #### C MP #### [facility] ([facility]) [address] [place] [address] VIR ALP [Catalytic activity/Vol] 74 U/L Normal 39-130 [facility] Comment on above: Performed By: #### C MP #### [facility] ([facility]) [address] [place] [address] VIR ALT [Catalytic activity/Vol] 29 U/L Normal <=31 [facility] Comment on above: Performed By: #### C MP #### [facility] ([facility]) [address] [place] [address] VIR Anion gap [Moles/Vol] 11 mmol/L Normal 5-15 [facility] Comment on above: Performed By: #### C MP #### [facility] ([facility]) [address] [place] [address] VIR AST [Catalytic activity/Vol] 30 U/L Normal <=41 [facility] Comment on above: Performed By: #### C MP #### [facility] ([facility]) [address] [place] [address] VIR Bilirubin [Mass/Vol] 0.6 mg/dL Normal 0.3-1.2 [facility] Comment on above: Performed By: #### C MP #### [facility] ([facility]) [address] [place] [address] VIR Calcium [Mass/Vol] 9.7 mg/dL Normal 8.5-10.5 [facility] Comment on above: Performed By: #### C MP #### [facility] ([facility]) [address] [place] [address] VIR Chloride [Moles/Vol] 99 mmol/L Normal 98-109 [facility] Comment on above: Performed By: #### C MP #### [facility] ([facility]) [address] [place] [address] VIR CO2 [Moles/Vol] 26 mmol/L Normal 22-32 [facility] Comment on above: Performed By: #### C MP #### [facility] ([facility]) [address] [place] [address] VIR Creatinine [Mass/Vol] 0.79 mg/dL Normal 0.40-1.00 [facility] Comment on above: Result Comment: METH OD TRACEABLE TO IDMS STANDARD Performed By: #### C MP #### [facility] ([facility]) [address] [place] [address] VIR EGFR (CKD-EPI) NON-RACE DEPENDENT >^90 Normal >=60 [facility] Comment on above: Result Comment: Repo rted eGFR is based on the CKD-EPI 2020 equation that does not use a race coefficient. Performed By: #### C MP #### [facility] ([facility]) [address] [place] [address] VIR Glucose [Mass/Vol] 112 mg/dL High 65-99 [facility] Comment on above: Performed By: #### C MP #### [facility] ([facility]) [address] [place] [address] VIR Potassium [Moles/Vol] 4.2 mmol/L Normal 3.5-5.0 [facility] Comment on above: Performed By: #### C MP #### [facility] ([facility]) [address] [place] [address] VIR Protein [Mass/Vol] 7.9 g/dL Normal 6.0-8.0 [facility] Comment on above: Performed By: #### C MP #### [facility] ([facility]) [address] [place] [address] VIR Sodium [Moles/Vol] 136 mmol/L Normal 134-146 [facility] Comment on above: Performed By: #### C MP #### [facility] ([facility]) [address] [place] [address] VIR Urea nitrogen [Mass/Vol] 13 mg/dL Normal 5-23 [facility] Comment on above: Performed By: #### C MP #### [facility] ([facility]) [address] [place] [address] BRAIN WO CONTon 5 CT BRAIN WO CONT CT BRAIN WO CONT CT BRAIN WO [...] Doug Javed MD on 12/16/2024 9:17 PM [facility] ECG 12-LEADon 12-14-2024 [place] [address] Electrocardiograph Report Signed Patient: RAYA GONZALES MR#: [id number] : 1980 Acct:[id number] Age/Sex: 44 / F ADM Date: 12/13/24 Loc: [place] 221-[address]: Janell Ta D.O. 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 Measurements Intervals [place] Rate: 83 P: 44 [place]: 146 QRS: 63 QRSD: 80 T: 10 QT: 374 QTc: 413 Interpretive Statements 1100 Sinus rhythm 4068 Nonspecific Twave abnormality Abnormal ECG Compared to ECG 06/12/2023 11:48:07 No significant changes Electronically Signed On 12-14-2024 7:42:38 EDT by BROOKE CACERES M.D. Dictated By: BROOKE CACERES Signed By: 12/14/24 0743 DD/ 1339 TD/TT: [facility]: [facility] Radiology, Radiologist, - 12/14/2024 [place] [address] Electrocardiograph Report Signed Patient: RAYA GONZALES MR#: [id number] : 1980 Acct:[id number] Age/Sex: 44 / F ADM Date: 12/13/24 Loc: [place] 221-[address]: Janell Ta D.O. 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 Measurements Intervals [place] Rate: 83 P: 44 [place]: 146 QRS: 63 QRSD: 80 T: 10 QT: 374 QTc: 413 Interpretive Statements 1100 Sinus rhythm 4068 Nonspecific Twave abnormality Abnormal ECG Compared to ECG 06/12/2023 11:48:07 No significant changes Electronically Signed On 12-14-2024 7:42:38 EDT by BROOKE CACERES M.D. Dictated By: BROOKE CACERES Signed By: 12/14/24 0743 DD/ 1339 TD/TT: [facility]: [facility] ECG 12-LEADOrdered By: [facility] on 12-14-2024 [facility] Work Phone: ECG 12-LEADon 12-13-2024 Radiology Study observation (narrative) [facility] US ABDOMEN LMTDon 10-21-2024 US ABDOMEN LMTD [...] Brooks MD on 10/21/2024 6:27 AM Normal [facility] Surgical Pathologyon 025 Surgical Pathology Normal [facility] Comment on above: Result Comment: [facility] [address] [place] [address] Surgical Pathology Consultation Patient Name:RAYA GONZALES:1980 (Age: 44)Gender:FTaken:09/09/2024Reported:09/17/2024Physician(s):Elvi Bustamante M.D. ([phone])Copy To: Rec. #:[id number]: #[id number] Final Pathologic Diagnosis 1. Endocervix, curettage: Unremarkable endocervical epithelium. 2. Endometrium, curettage: Proliferative endometrium. Report Electronically Signed Out 09/17/2024Miguel Carney MD [place] [address], License number: [id number]. Clinical History Heavy periods. Gross Description 1. Received in formalin labeled, CHRISTIAN, ECC is a pale mucoid material mixed with robles friable soft tissue bits, 0.7 x 0.4 x 0.1 cm in aggregate. The specimens are filtered and submitted in single cassette. (1, ns, [id number], m1) TB 2. Received in formalin labeled, CHRISTIAN EMC are robles delicate to friable soft tissue bits admixed with brown hemorrhagic material and scant brown mucoid material, 2.5 x 2 x 0.3 cm in aggregate. The specimens are filtered and submitted in single cassette. Fixation Time: Tissue removed from patient: 1410 Time specimen placed in formalin: 1410 Cold ischemic time: Less than 1 minute Total fixation time: 28.5 hours (1, ns, [id number], m1) TB tgb/09/10/2024NSK Specimen(s) Received 1: Endocervical curettings 2: Endometrial curettings Fee Codes(s): 1; 44441 2; 91049 BASIC METABOLIC PANLon 09-03 Anion gap [Moles/Vol] 6 mmol/L Normal 5-15 [facility] Comment on above: Performed By: #### B KEILA CBCShauna ####[facility] ([id number])[address] [address], [place] [address] Calcium [Mass/Vol] 8.8 mg/dL Normal 8.5-10.5 [facility] Comment on above: Performed By: #### B KEILA, CBCA ####[facility] ([id number])[address] [address], [place] [address] Chloride [Moles/Vol] 104 mmol/L Normal 98-109 [facility] Comment on above: Performed By: #### B KEILA CBCShauna ####[facility] ([id number])[address] [address] [address] CO2 [Moles/Vol] 28 mmol/L Normal 22-[address] [facility] Comment on above: Performed By: #### B KEILA CBCShauna ####[facility] ([id number])[address] [address] [address] Creatinine [Mass/Vol] 0.86 mg/dL Normal 0.40-1.00 [facility] Comment on above: Result Comment: METH OD TRACEABLE TO IDMS STANDARD Performed By: #### B KEILA CBCShauna ####[facility] ([id number])[address] [address], [place] [address] GFR/1.73 sq M.predicted among non-blacks MDRD (S/P/Bld) [Vol rate/Area] 86 mL/min/{1.73_m2} Normal >[address] [facility] Comment on above: Result Comment: Reported eGFR is based on the CKD-EPI 2020 equation that does not use a race coefficient. Performed By: #### B KEILA, CBCA ####[facility] ([id number])[address] [address], [place] [address] Glucose [Mass/Vol] 124 mg/dL High 65-99 [facility] Comment on above: Performed By: #### B MP, CBCA ####[facility] ([id number])[address] [place] [address] Potassium [Moles/Vol] 4.2 mmol/L Normal 3.5-5.0 [facility] Comment on above: Performed By: #### B MP, CBCA ####[facility] ([id number])[address], [place] [address] Sodium [Moles/Vol] 138 mmol/L Normal 134-146 [facility] Comment on above: Performed By: #### B MP, CBCA ####[facility] ([id number])[address], [place] [address] Urea nitrogen [Mass/Vol] 9 mg/dL Normal 5-[address] [facility] Comment on above: Performed By: #### B MP, CBCA ####[facility] ([id number])[address] [address], [place] [address] CBC AND AUTO DIFFon 09-03-19 25 ABSOLUTE BASOPHIL 0.0 X10E9/L Normal 0.0-0.2 [facility] Comment on above: Performed By: #### B MP, CBCA ####[facility] ([id number])[address] [place] [address] ABSOLUTE NEUTROPHIL 4.1 X10E9/L Normal 1.5-6.6 [facility] Comment on above: Performed By: #### B MP, CBCA ####[facility] ([id number])[address] [address] [place] [address], [place] [address] Basophils/100 WBC (Bld) 0.5 % Normal [facility] Comment on above: Performed By: #### B MP, CBCA ####[facility] ([id number])[address] [address] [place] [address] Eosinophils (Bld) [#/Vol] 0.2 10*3/uL Normal 0.0-0.[address] [facility] Comment on above: Performed By: #### B MP, CBCA ####[facility] ([id number])[address] [place] [address] Eosinophils/100 WBC (Bld) 2.6 % Normal [facility] Comment on above: Performed By: #### B MP, CBCA ####[facility] ([id number])[address] [address], [place] [address] Erythrocyte distribution width (RBC) [Ratio] 18.8 % High 11.5-15.[address] [facility] Comment on above: Performed By: #### B KEILA, CBCA ####[facility] ([id number])[address] [address], [place] [address] Hematocrit (Bld) [Volume fraction] 39.6 % Normal 35-[address] [facility] Comment on above: Performed By: #### B KEILA, CBCA ####[facility] ([id number])[address] [address], [place] [address] Hemoglobin (Bld) [Mass/Vol] 12.3 g/dL Normal 11.7-15.[address] [facility] Comment on above: Performed By: #### B MP, CBCA ####[facility] ([id number])[address] [address] [place] [address], [place] [address] Lymphocytes (Bld) [#/Vol] 1.6 10*3/uL Normal 1.0-3.[address] [facility] Comment on above: Performed By: #### B MP, CBCA ####[facility] ([id number])[address] [address], [place] [address] Lymphocytes/100 WBC (Bld) 25.1 % Normal [facility] Comment on above: Performed By: #### B MP, CBCA ####[facility] ([id number])[address] [place] [address] MCH (RBC) [Entitic mass] 23.4 pg Low 27-[address] [facility] Comment on above: Performed By: #### B MP, CBCA ####[facility] ([id number])[address] [place] [address] MCHC (RBC) [Mass/Vol] 31.0 g/dL Low 32-36 [facility] Comment on above: Performed By: #### B MP, CBCA ####[facility] ([id number])[address] [address] [place] [address] MCV (RBC) [Entitic vol] 76 fL Low 80-[address] [facility] Comment on above: Performed By: #### B KEILA, CBCA ####[facility] ([id number])[address] [address], [place] [address] Monocytes (Bld) [#/Vol] 0.4 10*3/uL Normal 0-0.[address] [facility] Comment on above: Performed By: #### B KEILA, CBCA ####[facility] ([id number])[address] [address] [place] [address] Monocytes/100 WBC (Bld) 5.9 % Normal [facility] Comment on above: Performed By: #### B MP, CBCA ####[facility] ([id number])[address] [address] [place] [address] Neutrophils/100 WBC (Bld) 65.9 % Normal [facility] Comment on above: Performed By: #### B MP, CBCA ####[facility] ([id number])[address] [address] [place] [address] Platelet mean volume (Bld) [Entitic vol] 8.2 fL Normal 7-[address] [facility] Comment on above: Performed By: #### B MP, CBCA ####[facility] ([id number])[address] [place] [address] Platelets (Bld) [#/Vol] 358 10*3/uL Normal 150-[address] [facility] Comment on above: Performed By: #### B MP, CBCA ####[facility] ([id number])[address] [address] [place] [address] RBC COUNT 5.25 X10E12/L High 3.80-5.[address] [facility] Comment on above: Performed By: #### B MP, CBCA ####[facility] ([id number])[address] [address] WBC (Bld) [#/Vol] 6.3 10*3/uL Normal 4.0-11.0 [facility] Comment on above: Performed By: #### B MP, CBCA ####[facility] ([id number])[address] [address] XR Chest PA and Lateralon Azael Garibay [...] Azael Garibay MD on 09/03/2024 10:49 PM [facility] Radiology Study observation (narrative) [facility] XR Chest PA and LateralOrder ed By: Azael Garibay on 09-03-2024 [facility] Work Phone: Surgical Pathologyon 024 Surgical Pathology Normal [facility] Comment on above: Result Comment: [facility] [address] [place] [address] Surgical Pathology Consultation Patient Name:RAYA GONZALES:1980 (Age: 44)Gender:FTaken:4Reported:4Physician(s):Elvi Bustamante M.D. ([phone])Copy To: Rec. #:[id number]: #[id number] Final Pathologic Diagnosis 1. Endocervix - ECC: - Benign surface endocervical lining with focal squamous metaplasia (no dysplasia or neoplasia) 2. Endometrium - biopsy: - Mildly disordered proliferative endometrium (no polyps, hyperplasia or neoplasia) Report Electronically Signed Out hoover/07/26/2024Emanuel Islas MD Interpretation performed at [id number], [address] [place] [address], License number: [id number]. Clinical History Dysfunctional uterine bleeding (DUB) N93.8. Gross Description 1. Received in formalin labeled CHRISTIAN, ECC is a plastic wired brush with robles-brown soft tissue fragments admixed with hemorrhagic and mucoid material, 2.7 x 1.2 x 0.2 cm in aggregate. The specimen is filtered and entirely submitted in a single cassette. (1, ns, [id number],m2) DM. 2. Received in formalin labeled CHRISTIAN, EMB robles-brown soft tissue fragments and base with hemorrhagic and mucoid material, 2.7 x 2.3 x 0.3 cm in aggregate. The specimen is filtered and entirely submitted in a single cassette. (1, ns, [id number],m2) DM. Fixation Time: Tissue removed from patient: 1946 Time specimen placed in formalin: 1946 Cold ischemic time: Less than 1 minute Total fixation time: 14-1/2 hours dm/07/16/2024NSK Specimen(s) Received 1: Endocervical curettings 2: Endometrial biopsy Fee Codes(s): 1; 63572 2; 02652 COMPLETE BLOOD COUNTon 07-09 Erythrocyte distribution width (RBC) [Ratio] 16.8 % High 11.5-15.[address] [facility] Comment on above: Performed By: #### 2 0415-6, 2842-3, 3016-3, 65180-1, 91207-3, CBC, 3024-7 ####[facility] ([id number])[address] [place] [address] Hematocrit (Bld) [Volume fraction] 43.3 % Normal 35-[address] [facility] Comment on above: Performed By: #### 2 0415-6, 2842-3, 3016-3, 34207-9, 58253-1, CBC, 3024-7 ####[facility] ([id number])[address] [place] [address] Hemoglobin (Bld) [Mass/Vol] 13.8 g/dL Normal 11.7-15.[address] [facility] Comment on above: Performed By: #### 2 0415-6, 2842-3, 3016-3, 74806-0, 06205-3, CBC, 3024-7 ####[facility] ([id number])[address] [place] [address] MCH (RBC) [Entitic mass] 24.0 pg Low 27-[address] [facility] Comment on above: Performed By: #### 2 0415-6, 2842-3, 3016-3, 37063-6, 35729-5, CBC, 3024-7 ####[facility] ([id number])[address] [place] [address] MCHC (RBC) [Mass/Vol] 32.0 g/dL Normal 32-36 [facility] Comment on above: Performed By: #### 2 0415-6, 2842-3, 3016-3, 91925-1, 16759-4, CBC, 3024-7 ####[facility] ([id number])[address] [address] [place] [address] MCV (RBC) [Entitic vol] 75 fL Low 80-[address] [facility] Comment on above: Performed By: #### 2 0415-6, 2842-3, 3016-3, 58919-3, 49008-6, CBC, 3024-7 ####[facility] ([id number])[address], [address] [place] [address] Platelet mean volume (Bld) [Entitic vol] 8.0 fL Normal 7-[address] [facility] Comment on above: Performed By: #### 2 0415-6, 2842-3, 3016-3, 86767-5, 27403-3, CBC, 3024-7 ####[facility] ([id number])[address] [address] [place] [address] Platelets (Bld) [#/Vol] 382 10*3/uL Normal 150-[address] [facility] Comment on above: Performed By: #### 2 0415-6, 2842-3, 3016-3, 57969-9, 31493-8, CBC, 302-7 ####[facility] ([id number])[address] [address] RBC COUNT 5.77 X10E12/L High 3.80-5.[address] [facility] Comment on above: Performed By: #### 2 0415-6, 2842-3, 3016-3, 76715-1, 96911-0, CBC, 3024-7 ####[facility] ([id number])[address] [address] [place] [address] WBC (Bld) [#/Vol] 9.0 10*3/uL Normal 4.0-11.0 [facility] Comment on above: Performed By: #### 2 0415-6, 2842-3, 3016-3, 61890-6, 95665-4, CBC, 3024-7 ####[facility] ([id number])[address] [facility], [address] [place] [address] FREE T4on 07-09-2024 Free T4 [Mass/Vol] 0.88 ng/dL Normal 0.61-1.60 [facility] Comment on above: Result Comment: NEW REFERENCE RANGE FOR PEDIATRIC PATIENTS Performed By: #### 2 0415-6, 2842-3, 3016-3, 89837-9, 69658-4, CBC, 3024-7 ####[facility] ([id number])[address] [facility], [address] [place] [address] Follitropin Qnon 07-09-2024 FOLLICLE STIM HORMONE 6.9 mIU/mL Normal [facility] Comment on above: Result Comment: NORMAL FEMALE Luteal 1.8-5.1 mIU/mL Follicular 3.8-8.8 mIU/mL Mid Cycle 4.5-22.5 mIU/mL Post Sandhya 16.7-113.6 mIU/mL Performed By: #### 2 0415-6, 2842-3, 3016-3, 59023-9, 40183-1, CBC, 3024-7 ####[facility] ([id number])[address] [facility], [address] [place] [address] HCG.beta subunit IA 3rd IS Q non 07-09-2024 SERUM B HCG,3RD I.S. <5 Normal [facility] Comment on above: Result Comment: [...] Performed By: #### 2 0415-6, 2842-3, 3016-3, 04450-6, 87526-2, CBC, 3024-7 ####[facility] ([id number])[address] [place] [address] Lutropin Qnon 07-09-2024 LUTEINIZING HORMONE 2.6 mIU/mL Normal [facility] Comment on above: Result Comment: NORMAL FEMALE Follicular 2.1-10.9 mIU/mL Mid Cycle 19.2-103 mIU/mL Luteal 1.2-12.9 mIU/mL Post Sandhya 10.9-58.6 mIU/mL Performed By: #### 2 0415-6, 2842-3, 3016-3, 15627-2, 92176-5, CBC, 3024-7 ####[facility] ([id number])[address], [place] [address] Prolactin [Mass/Vol]on 07-09 PROLACTIN 25.4 ng/mL Normal 3.3-26.[address] [facility] Comment on above: Performed By: #### 2 0415-6, 2842-3, 3016-3, 73531-3, 05194-4, CBC, 3024-7 ####[facility] ([id number])[address], [place] [address] TSH Qnon 07-09-2024 TSH 3.82 uIU/mL Normal 0.49-4.[address] [facility] Comment on above: Result Comment: NEW REFERENCE RANGE FOR PEDIATRIC PATIENTS Performed By: #### 2 0415-6, 2842-3, 3016-3, 83385-4, 91194-9, CBC, 3024-7 ####[facility] ([id number])[address], [address] [place] [id number] US PELVIC WITH TRANSVAGINALo n 06-24-2024 US [...] Valero MD on 06/24/2024 7:12 PM Normal [facility] CBC AND AUTO DIFFon 06-21-20 24 ABSOLUTE BASOPHIL 0.1 X10E9/L Normal 0.0-0.2 [facility] Comment on above: Performed By: #### P INR, CMP, CBCA, 3040-3, 17954-6 ####[facility] ([id number])[address] [place] [address]125 ABSOLUTE NEUTROPHIL 3.7 X10E9/L Normal 1.5-6.6 [facility] Comment on above: Performed By: #### P INR, CMP, CBCA, 3040-3, 13211-3 ####[facility] ([id number])[address] [place] [address] 66801 Basophils/100 WBC (Bld) 0.9 % Normal [facility] Comment on above: Performed By: #### P INR, CMP, CBCA, 3040-3, 27923-8 ####[facility] ([id number])[address] [place] [address]11 Eosinophils (Bld) [#/Vol] 0.3 10*3/uL Normal 0.0-0.[address] [facility] Comment on above: Performed By: #### P INR, CMP, CBCA, 3040-3, 78277-8 ####[facility] ([id number])[address] [place] [address] 93253 Eosinophils/100 WBC (Bld) 4.2 % Normal [facility] Comment on above: Performed By: #### P INR, CMP, CBCA, 3040-3, 30976-0 ####[facility] ([id number])[address] [place] [address] 55507 Erythrocyte distribution width (RBC) [Ratio] 16.0 % High 11.5-15.[address] [facility] Comment on above: Performed By: #### P INR, CMP, CBCA, 3040-3, 69298-6 ####[facility] ([id number])[address] [place] [address] 20866 Hematocrit (Bld) [Volume fraction] 37.6 % Normal 35-[address] [facility] Comment on above: Performed By: #### P INR, CMP, CBCA, 3040-3, 78636-5 ####[facility] ([id number])[address] [place] [address] 43025 Hemoglobin (Bld) [Mass/Vol] 12.0 g/dL Normal 11.7-15.[address] [facility] Comment on above: Performed By: #### P INR, CMP, CBCA, 3040-3, 30504-7 ####[facility] ([id number])[address] [place] [address] 55743 Lymphocytes (Bld) [#/Vol] 1.9 10*3/uL Normal 1.0-3.[address] [facility] Comment on above: Performed By: #### P INR, CMP, CBCA, 0-3, 47987-0 ####[facility] ([id number])[address] [place] [address] 36345 Lymphocytes/100 WBC (Bld) 29.8 % Normal [facility] Comment on above: Performed By: #### P INR, CMP, CBCA, 3040-3, 56714-8 ####[facility] ([id number])[address] [place] [address] 45526 MCH (RBC) [Entitic mass] 24.2 pg Low 27-[address] [facility] Comment on above: Performed By: #### P INR, CMP, CBCA, 3040-3, 09930-5 ####[facility] ([id number])[address] [place] [address] 46838 MCHC (RBC) [Mass/Vol] 31.8 g/dL Low 32-36 [facility] Comment on above: Performed By: #### P INR, CMP, CBCA, 3040-3, 22537-5 ####[facility] ([id number])[address] [place] [address] 40330 MCV (RBC) [Entitic vol] 76 fL Low 80-[address] [facility] Comment on above: Performed By: #### P INR, CMP, CBCA, 3040-3, 57193-8 ####[facility] ([id number])[address] [place] [address] 59188 Monocytes (Bld) [#/Vol] 0.5 10*3/uL Normal 0-0.[address] [facility] Comment on above: Performed By: #### P INR, CMP, CBCA, 3040-3, 89664-1 ####[facility] ([id number])[address] [place] [address] 51329 Monocytes/100 WBC (Bld) 7.9 % Normal [facility] Comment on above: Performed By: #### P INR, CMP, CBCA, 3040-3, 33248-8 ####[facility] ([id number])[address] [place] [address] 23390 Neutrophils/100 WBC (Bld) 57.2 % Normal [facility] Comment on above: Performed By: #### P INR, CMP, CBCA, 3040-3, 86155-1 ####[facility] ([id number])[address] [place] [address] 20123 Platelet mean volume (Bld) [Entitic vol] 7.6 fL Normal 7-[address] [facility] Comment on above: Performed By: #### P INR, CMP, CBCA, 3040-3, 31285-3 ####[facility] ([id number])[address] [place] [address] 24088 Platelets (Bld) [#/Vol] 408 10*3/uL Normal 150-[address] [facility] Comment on above: Performed By: #### P INR, CMP, CBCA, 3040-3, 59850-9 ####[facility] ([id number])[address] [place] [address] 06061 RBC COUNT 4.95 X10E12/L Normal 3.80-5.[address] [facility] Comment on above: Performed By: #### P INR, CMP, CBCA, 3040-3, 95555-4 ####[facility] ([id number])[address] [place] [address] 89491 WBC (Bld) [#/Vol] 6.4 10*3/uL Normal 4.0-11.0 [facility] Comment on above: Performed By: #### P INR, CMP, CBCA, 3040-3, 02558-1 ####[facility] ([id number])[address] [place] [address] 37688 COMPREHENSIVE METABOLIC PANE Toribio 06-21-2024 Albumin [Mass/Vol] 4.1 g/dL Normal 3.2-5.3 [facility] Comment on above: Performed By: #### P INR, CMP, CBCA, 3040-3, 90802-4 ####[facility] ([id number])[address] [place] [address] 53535 ALP [Catalytic activity/Vol] 71 U/L Normal 39-[address] [facility] Comment on above: Performed By: #### P INR, CMP, CBCA, 3040-3, 82783-4 ####[facility] ([id number])[address] [place] [address] 36834 ALT [Catalytic activity/Vol] 44 U/L High 0-[address] [facility] Comment on above: Performed By: #### P INR, CMP, CBCA, 3040-3, 04751-8 ####[facility] ([id number])[address] [place] [address] 53660 Anion gap [Moles/Vol] 9 mmol/L Normal 5-15 [facility] Comment on above: Performed By: #### P INR, CMP, CBCA, 3040-3, 33483-6 ####[facility] ([id number])[address] [place] [address] [place] [address] AST [Catalytic activity/Vol] 34 U/L Normal 0-[address] [facility] Comment on above: Performed By: #### P INR, CMP, CBCA, 3040-3, 41472-9 ####[facility] ([id number])[address] [place] [address] 63855 Bilirubin [Mass/Vol] 0.5 mg/dL Normal 0.3-1.2 [facility] Comment on above: Performed By: #### P INR, CMP, CBCA, 3040-3, 15044-7 ####[facility] ([id number])[address] [place] [address] 71932 Calcium [Mass/Vol] 9.1 mg/dL Normal 8.5-10.5 [facility] Comment on above: Performed By: #### P INR, CMP, CBCA, 3040-3, 73487-3 ####[facility] ([id number])[address] [place] [address] 36193 Chloride [Moles/Vol] 103 mmol/L Normal 98-109 [facility] Comment on above: Performed By: #### P INR, CMP, CBCA, 3040-3, 86022-0 ####[facility] ([id number])[address] [place] [address] 54283 CO2 [Moles/Vol] 24 mmol/L Normal 22-[address] [facility] Comment on above: Performed By: #### P INR, CMP, CBCA, 3040-3, 00671-4 ####[facility] ([id number])[address] [place] [address] 09898 Creatinine [Mass/Vol] 0.68 mg/dL Normal 0.40-1.00 [facility] Comment on above: Result Comment: METH OD TRACEABLE TO IDMS STANDARD Performed By: #### P INR, CMP, CBCA, 3040-3, 53445-8 ####[facility] ([id number])[address] [place] [address] 40025 eGFR (CKD-EPI) NON-RACE DEPENDENT >90 Normal >[address] [facility] Comment on above: Result Comment: Reported eGFR is based on the CKD-EPI 2020 equation that does not use a race coefficient. Performed By: #### P INR, CMP, CBCA, 3040-3, 48909-1 ####[facility] ([id number])[address] [place] [address] 94692 Glucose [Mass/Vol] 108 mg/dL High 65-99 [facility] Comment on above: Performed By: #### P INR, CMP, CBCA, 3040-3, 83299-1 ####[facility] ([id number])[address] [place] [address] 98665 Potassium [Moles/Vol] 3.8 mmol/L Normal 3.5-5.0 [facility] Comment on above: Performed By: #### P INR, CMP, CBCA, 3040-3, 51415-6 ####[facility] ([id number])[address] [place] [address] 11772 Protein [Mass/Vol] 7.5 g/dL Normal 6.0-8.0 [facility] Comment on above: Performed By: #### P INR, CMP, CBCA, 3040-3, 31611-0 ####[facility] ([id number])[address] [place] [address] 65575 Sodium [Moles/Vol] 136 mmol/L Normal 134-146 [facility] Comment on above: Performed By: #### P INR, CMP, CBCA, 3040-3, 97248-9 ####[facility] ([id number])[address] [place] [address] 21989 Urea nitrogen [Mass/Vol] 10 mg/dL Normal 5-[address] [facility] Comment on above: Performed By: #### P INR, CMP, CBCA, 3040-3, 10186-1 ####[facility] ([id number])[address] [place] [address] CT ABDOMEN AND PELVIS W CONT on [...] Bradley MD on 06/21/2024 3:20 PM Normal [facility] LIPASEon 06-21-2024 Lipase [Catalytic activity/Vol] 41 U/L High 17-[address] [facility] Comment on above: Performed By: #### P INR, CMP, CBCA, 3040-3, 71565-7 ####[facility] ([id number])[address] [place] [address] 75668 PROTIME AND INRon 06-21-2024 INR Coag (PPP) [Relative time] 1.0 {INR} Normal 0.8-1.[address] [facility] Comment on above: Performed By: #### P INR, CMP, CBCA, 3040-3, 97707-0 ####[facility] ([id number])[address] [place] [address], [place] [address] PT Coag (PPP) [Time] 11.6 s Normal 9.8-13.2 [facility] Comment on above: Result Comment: NEW REFERENCE RANGE Performed By: #### P INR, CMP, CBCA, 3040-3, 85511-3 ####[facility] ([id number])[address] [place] [address] [place] [address] URN MACROSCOPIC NURon 2023 BILIRUBIN JOURDAN Negative Normal NEG [facility] Comment on above: Performed By: #### N UM ####[facility] ([id number])[address] [place] [address] [place] [address] BLOOD/HGB JOURDAN Negative Normal NEG [facility] Comment on above: Performed By: #### N UM ####[facility] ([id number])[address] [place] [address] [place] [address] GLUCOSE JOURDAN Negative Normal NEG [facility] Comment on above: Performed By: #### N UM ####[facility] ([id number])[address] [place] [address] [place] [address] KETONES JOURDAN Negative Normal NEG [facility] Comment on above: Performed By: #### N UM ####[facility] ([id number])[address] [place] [address] [place] [address] LEUKOCYTE ESTERASE JOURDAN Negative Normal NEG [facility] Comment on above: Performed By: #### N UM ####[facility] ([id number])[address] [place] [address] [place] [address] NITRITE JOURDAN Negative Normal NEG [facility] Comment on above: Performed By: #### N UM ####[facility] ([id number])[address] [place] [address] [place] [address] PH JOURDAN 6.0 Normal 5.0-8.[address] [facility] Comment on above: Performed By: #### N UM ####[facility] ([id number])[address] [place] [address] 68690 PROTEIN JOURDAN Negative Normal NEG [facility] Comment on above: Performed By: #### N UM ####[facility] ([id number])[address] [place] [address] 76866 SPECIFIC GRAVITY JOURDAN 1.010 Normal 1.003-1.035 [facility] Comment on above: Performed By: #### N UM ####[facility] ([id number])[address] [place] [address] 16993 UROBILINOGEN JOURDAN 0.2 eu/dL Normal <1.1 [facility] Comment on above: Performed By: #### N UM ####[facility] ([id number])[address] [place] [address] 45931 aPTT Coag (PPP) [Time]on aPTT Coag (Bld) [Time] 34 s Normal 26-[address] [facility] Comment on above: Result Comment: NEW REFERENCE RANGE Performed By: #### P INR, CMP, CBCA, 3040-3, 17064-9 ####[facility] ([id number])[address] [place] [address] 32243 Cytologyon 06-19-2024 Cytology Normal [facility] Comment on above: Result Comment: [facility] [address] [place] [address] Gynecologic Cytology Consultation Patient Name:RAYA GONZALES:1980 (Age: 44)Gender:FTaken:4Reported:4Physician(s):Gisela Cordova, DEVAN-ORANGE PICKING SUPERVISOR ([phone])Copy To: Rec. #:[id number]: #[id number] Final Cytologic Interpretation ThinPrep Pap Test (Cervical): Satisfactory for evaluation. A transformation zone component is not identified via imaging-assisted review, using Narvalous Thin Prep Imaging System, within 22 microscopic castillo of view. NEGATIVE FOR INTRAEPITHELIAL LESION OR MALIGNANCY. [facility] [place]20[facility], [address] [place] [address], License number: [id number]. Electronically Signed Out By MARIAH Loving(ASCP) Date of Last Menstrual Period: 05/14/24 Other Clinical Conditions: Abnormal Bleeding Z01.419 Osteopathy Doctor exam wo/abn findings Source of Specimen ThinPrep Pap Test (Cervical) Thin Prep Pap (AGRICULTURAL SCIENCES PROFESSOR) Fee Code(s): G0145 The Pap test is a screening test with an inherent, but low, probability of error. The Pap test is primarily effective for the diagnosis and prevention of squamous cell carcinoma. Regular screening is critical for prevention. ThinPrep liquid-based slides, which meet the Wire Web Worker criteria for automated screening, have been screened by the ThinPrep Imaging System (as of 04/16/07) along with an additional manual rescreening by a licensed chemical spray technician and, if indicated, by a pathologist. HIGH RISK HPV W/GENOon 06-19 HPV 31+33+35+39+45+51+52+ 56+58+59+66+68 DNA JOSELUIS+probe Ql (Cvx) HPV SPECIMEN TYPE ThinPrep HPV 16 Negative (qualifier value) HPV 18 Negative (qualifier value) OTHER HIGH RISK HPV Negative (qualifier value) HPV types 31,33,35,39,45,52,56,5 8,59,66 and 68 DNA were undetectable. Normal [facility] Comment on above: Performed By: #### 7 1431-1 ####[facility] ([id number])[address] [place] [id number] [place] [address] LAB ([id number])[address] [place] [address], [address] [place] [address] 12118 Alpha 1 antitrypsin Nephelom etry [Mass/Vol]on 06-17-2024 ALPHA 1 ANTITRYPSIN 193 mg/dL Normal 83-199 [facility] Comment on above: Performed By: #### 2 6449-9, 87438-4, HA1C, IMGB, 44332-6, CBC, THYR, 6771-0, 2132-03 #### [facility] ([id number]) [address] [place] [address], [address] [place] [address] #### 11012-9 #### [facility] ([id number]) [address] [place] [address] 97103 Alpha 1 antitrypsin phenotyp ing [Interp]on 06-17-2024 Vktgj-1-Njtputihhox Phenotype MM Normal [facility] Comment on above: Result Comment: NOTE A single M isoform is detected. In the context of a normal dgsne-6-vzenmitzryz concentration, this is consistent with an MM phenotype. ADDITIONAL INFORMATION Method: Isoelectric Focusing, This assay identifies the phenotype of the circulating hhzqi-6-lebvninings (A1A) protein. If the patient is on replacement therapy or has been recently transfused, the phenotype will detect patient and replacement or transfused plasma A1A protein. This test also cannot detect a null allele which could be responsible for an A1A deficiency. Performed By: #### 2 6449-9, 38851-2, HA1C, IMGB, 96188-1, CBC, THYR, 6771-0, 2132-03 ####[facility] ([id number])[address] [place] [address], [address], [place] [address]#### 96912-8 ####[facility] ([id number])[address] [place] [address] 14935 Trgsx-7-Pfgtwobfmco, S 180 mg/dL Normal 100 - [address] [facility] Comment on above: Result Comment: NOTE ADDITIONAL INFORMATION Method: Nephelometry Test Performed by: [facility] [address] [place] [address] Contour Grinder: Arabella Trejo Ph.D.; CLIA# [id number] Performed By: #### 2 6449-9, 30741-0, HA1C, IMGB, 50984-8, CBC, THYR, 6771-0, 2132-03 ####[facility] ([id number])[address] [place] [address], [address] [address]#### 32506-2 ####[facility] ([id number])[address] [place] [address] 53480 B. burgdorferi IgG+IgM Qn (S )on 06-17-2024 LYME TOTAL <0.2 Normal <0.[address] [facility] Comment on above: Result Comment: Interpretation-------- <0.9 Negative 0.9 - 1.0 Equivocal >1.0 Positive No serological evidence of Borrelia infection.A non-reactive result does not exclude the possibility of Borrelia infection and cannot exclude early infection with B.burgdorferi. If Lyme borreliosis is suspected, a second sample should be collected and tested 2-4 weeks later. Performed By: #### 2 6449-9, 64815-1, HA1C, IMGB, 33304-1, CBC, THYR, 6771-0, 2132-03 ####[facility] ([id number])[address] [place] [address]#### 33666-7 ####[facility] ([id number])[address] [place] [address] 78719 COMPLETE BLOOD COUNTon 06-17 Erythrocyte distribution width (RBC) [Ratio] 16.2 % High 11.5-15.[address] [facility] Comment on above: Performed By: #### 2 6449-9, 77917-2, HA1C, IMGB, 40087-2, CBC, THYR, 6771-0, 2132-03 #### [facility] ([id number]) [address], [address] [place] [address] #### 25573-7 #### [facility] ([id number]) [address] [place] [address] 22393 Hematocrit (Bld) [Volume fraction] 41.8 % Normal 35-[address] [facility] Comment on above: Performed By: #### 2 6449-9, 19580-6, HA1C, IMGB, 47054-4, CBC, THYR, 6771-0, 2132-03 #### [facility] ([id number]) [address] [facility], [address] [place] [address] #### 10164-4 #### [facility] ([id number]) [address] [place] [address] 41259 Hemoglobin (Bld) [Mass/Vol] 13.2 g/dL Normal 11.7-15.[address] [facility] Comment on above: Performed By: #### 2 6449-9, 34812-7, HA1C, IMGB, 54008-9, CBC, THYR, 6771-0, 2132-03 #### [facility] ([id number]) [address], [address] [place] [address] #### 97789-4 #### [facility] ([id number]) [address] [place] [address] 52444 MCH (RBC) [Entitic mass] 24.2 pg Low 27-[address] [facility] Comment on above: Performed By: #### 2 6449-9, 08806-3, HA1C, IMGB, 85099-0, CBC, THYR, 6771-0, 2132-03 #### [facility] ([id number]) [address], [address] [place] [address] #### 19371-7 #### [facility] ([id number]) [address] [place] [address] 93938 MCHC (RBC) [Mass/Vol] 31.6 g/dL Low 32-36 [facility] Comment on above: Performed By: #### 2 6449-9, 81828-2, HA1C, IMGB, 63999-9, CBC, THYR, 6771-0, 2132-03 #### [facility] ([id number]) [address], [address] [place] [address] #### 54127-3 #### [facility] ([id number]) [address] [place] [address] 64329 MCV (RBC) [Entitic vol] 77 fL Low 80-[address] [facility] Comment on above: Performed By: #### 2 6449-9, 99550-0, HA1C, IMGB, 43572-6, CBC, THYR, 6771-0, 2132-03 #### [facility] ([id number]) [address], [address] [place] [address] #### 98819-9 #### [facility] ([id number]) [address] [place] [address] 91392 Platelet mean volume (Bld) [Entitic vol] 8.4 fL Normal 7-[address] [facility] Comment on above: Performed By: #### 2 6449-9, 67973-9, HA1C, IMGB, 86907-7, CBC, THYR, 6771-0, 2132-03 #### [facility] ([id number]) [address], [address] [place] [address] #### 69551-2 #### [facility] ([id number]) [address] [place] [address] 26053 Platelets (Bld) [#/Vol] 460 10*3/uL High 150-[address] [facility] Comment on above: Performed By: #### 2 6449-9, 66231-9, HA1C, IMGB, 49445-4, CBC, THYR, 6771-0, 2132-03 #### [facility] ([id number]) [address] [facility], [address] [place] [address] #### 88070-6 #### [facility] ([id number]) [address] [place] [address] 31107 RBC COUNT 5.45 X10E12/L High 3.80-5.[address] [facility] Comment on above: Performed By: #### 2 6449-9, 68197-7, HA1C, IMGB, 30534-9, CBC, THYR, 6771-0, 2132-03 #### [facility] ([id number]) [address] [facility], [address] [place] [address] #### 51334-6 #### [facility] ([id number]) [address] [place] [address] 14488 WBC (Bld) [#/Vol] 12.1 10*3/uL High 4.0-11.0 [facility] Comment on above: Performed By: #### 2 6449-9, 72632-6, HA1C, IMGB, 68554-2, CBC, THYR, 6771-0, 2132-03 #### [facility] ([id number]) [address] [facility], [address] [place] [address] #### 90049-4 #### [facility] ([id number]) [address] [place] [address] 88219 EOSINOPHIL, TOTALon 11-18-20 24 Eosinophils (Bld) [#/Vol] 0.2 10*3/uL Normal 0.0-0.[address] [facility] Comment on above: Performed By: #### 2 6449-9, 42737-2, HA1C, IMGB, 97908-2, CBC, THYR, 6771-0, 2132-03 #### [facility] ([id number]) [address] [facility], [address] [place] [address] #### 52612-7 #### [facility] ([id number]) [address] [place] [address] 03751 HGB A1C (GLYCO-HGB)on 2023 Glucose [Mass/Vol] 169 mg/dL Normal [facility] Comment on above: Performed By: #### 2 6449-9, 21990-9, HA1C, IMGB, 97881-4, CBC, THYR, 6771-0, 2132-03 #### [facility] ([id number]) [facility] [facility], [address] [place] [address] #### 10871-5 #### [facility] ([id number]) [address] [place] [address] 45383 HbA1c (Bld) [Mass fraction] 7.5 % High 4.4-5.[address] [facility] Comment on above: Result Comment: NOTE ADA Guidelines Result HgbA1c Normal : less than 5.7 % Prediabetes : 5.7 % to 6.4 % Diabetes : > 6.4 % Use with caution in patients with abnormal hemoglobin variants as the half-life of red blood cells and in vivo glycation rates are affected. Performed By: #### 2 6449-9, 49518-8, HA1C, IMGB, 29968-6, CBC, THYR, 6771-0, 2132-03 #### [facility] ([id number]) [address], [address] [place] [address] #### [id number] #### [facility] ([id number]) [address] [place] [address]489 IMMUNOGLOBULINSon 06-17-2024 IgA [Mass/Vol] 181 mg/dL Normal 68-[address] [facility] Comment on above: Performed By: #### 2 6449-9, 56708-7, HA1C, IMGB, 39732-0, CBC, THYR, 6771-0, 2132-03 #### [facility] ([id number]) [address], [address] [place] [address] #### [id number] #### [facility] ([id number]) [address] [place] [address] 11316 IgG [Mass/Vol] 672 mg/dL Normal 635-[address] [facility] Comment on above: Performed By: #### 2 6449-9, 92173-4, HA1C, IMGB, 04474-8, CBC, THYR, 6771-0, 2132-03 #### [facility] ([id number]) [address], [address] [place] [address] #### 94369-6 #### [facility] ([id number]) [address] [place] [address] 69334 IgM [Mass/Vol] 165 mg/dL Normal 45-[address] [facility] Comment on above: Performed By: #### 2 6449-9, 38691-8, HA1C, IMGB, 30106-5, CBC, THYR, 6771-0, 2132-03 #### [facility] ([id number]) [address], [address] [place] [address] #### 08967-6 #### [facility] ([id number]) [address] [place] [address]689 Nuclear Ab IA Ql (S)on 06-17 RODRIGO Screen w/reflex Negative Normal NEG [facility] Comment on above: Result Comment: Testing performed using multiplex flow immunoassay. Eleven different antigens associated with systemic autoimmune diseases (dsDNA,Sm,Sm/STRAIGHT PIN MAKING MACHINE OPERATOR,STRAIGHT PIN MAKING MACHINE OPERATOR,Chromatin, SSA,SSB,Maria Guadalupe-1,Scl70,Ribo P,Centromere B) are included in this screening test. Performed By: #### 2 6449-9, 65512-1, HA1C, IMGB, 22293-1, CBC, THYR, 6771-0, 2132-9 ####[facility] ([id number])[address], [address] [place] [address]#### 75449-8 ####[facility] ([id number])[address] [place] [address] RESPIRATORY PANELon 06-17-20 24 ALTERNARIA ALTERNATA <0.10 Normal <0.10 [facility] Comment on above: Result Comment: Clas s 0: Normal Performed By: #### R AP ####[facility] ([id number])[address], [address] [place] [address] ASPERGILLUS FUMIGATUS <0.10 Normal <0.10 [facility] Comment on above: Result Comment: Clas s 0: Normal Performed By: #### R AP ####[facility] ([id number])[address], [address], [place] [address] BERMUDA GRASS <0.10 Normal <0.[address] [facility] Comment on above: Result Comment: Clas s 0: Normal Performed By: #### R AP ####[facility] ([id number])[address], [address], [place] [address] BOX ELDER <0.10 Normal <0.[address] [facility] Comment on above: Result Comment: Clas s 0: Normal Performed By: #### R AP ####[facility] ([id number])[address], [address], [place] [address] CAT DANDER <0.10 Normal <0.[address] [facility] Comment on above: Result Comment: Clas s 0: Normal Performed By: #### R AP ####[facility] ([id number])[address], [address], [place] [address] CLADOSPORIUM HERB <0.10 Normal <0.10 [facility] Comment on above: Result Comment: Clas s 0: Normal Performed By: #### R AP ####[facility] ([id number])[address], [address], [place] [address] COCKLEBUR <0.10 Normal <0.[address] [facility] Comment on above: Result Comment: Clas s 0: Normal Performed By: #### R AP ####[facility] ([id number])[address], [address] [address] COCKROACH 0.14 kU/L High <0.[address] [facility] Comment on above: Result Comment: Clas s 0/1: Low level of Allergy, ongoing sensitization Performed By: #### R AP ####[facility] ([id number])[address], [address], [place] [address] COMMON PIGWEED <0.10 Normal <0.[address] [facility] Comment on above: Result Comment: Clas s 0: Normal Performed By: #### R AP ####[facility] ([id number])[address], [address], [place] [address] COMMON RAGWEED <0.10 Normal <0.[address] [facility] Comment on above: Result Comment: Clas s 0: Normal Performed By: #### R AP ####[facility] ([id number])[address], [address], [place] [address] COMMON SILVER BIRCH <0.10 Normal <0.10 [facility] Comment on above: Result Comment: Clas s 0: Normal Performed By: #### R AP ####[facility] ([id number])[address], [address] [address] COTTONWOOD <0.10 Normal <0.[address] [facility] Comment on above: Result Comment: Clas s 0: Normal Performed By: #### R AP ####[facility] ([id number])[address], [address] [address] DERMATOPH FARINAE <0.10 Normal <0.10 [facility] Comment on above: Result Comment: Clas s 0: Normal Performed By: #### R AP ####[facility] ([id number])[address], [address] [place] [address] DERMATOPH PTERONYSS <0.10 Normal <0.10 [facility] Comment on above: Result Comment: Clas s 0: Normal Performed By: #### R AP ####[facility] ([id number])[address], [address], [place] [address] DOG DANDER <0.10 Normal <0.[address] [facility] Comment on above: Result Comment: Clas s 0: Normal Performed By: #### R AP ####[facility] ([id number])[address], [address], [place] [address] ELM <0.10 Normal <0.[address] [facility] Comment on above: Result Comment: Clas s 0: Normal Performed By: #### R AP ####[facility] ([id number])[address], [address] [place] [address] GOOSEFOOT LITTLE QTR <0.10 Normal <0.10 [facility] Comment on above: Result Comment: Clas s 0: Normal Performed By: #### R AP ####[facility] ([id number])[address], [address] [place] [address] IGE 31 IU/mL Normal 0-[address] [facility] Comment on above: Performed By: #### R AP ####[facility] ([id number])[address] [address] RUSS GRASS <0.10 Normal <0.[address] [facility] Comment on above: Result Comment: Clas s 0: Normal Performed By: #### R AP ####[facility] ([id number])[address], [place] [address] MAPLE LEAF SYCAMORE <0.10 Normal <0.10 [facility] Comment on above: Result Comment: Clas s 0: Normal Performed By: #### R AP ####[facility] ([id number])[address] [place] [address] [place]OW [place] GURPREET <0.10 Normal <0.10 [facility] Comment on above: Result Comment: Clas s 0: Normal Performed By: #### R AP ####[facility] ([id number])[address] [address] MOUNTAIN JUNIPER <0.10 Normal <0.10 [facility] Comment on above: Result Comment: Clas s 0: Normal Performed By: #### R AP ####[facility] ([id number])[address] [place] [address] MOUSE URINE PROTEINS <0.10 Normal <0.10 [facility] Comment on above: Result Comment: Clas s 0: Normal Performed By: #### R AP ####[facility] ([id number])[address] [place] [address] MUGWORT <0.10 Normal <0.[address] [facility] Comment on above: Result Comment: Clas s 0: Normal Performed By: #### R AP ####[facility] ([id number])[address], [place] [address] MULBERRY TREE <0.10 Normal <0.[address] [facility] Comment on above: Result Comment: Clas s 0: Normal Performed By: #### R AP ####[facility] ([id number])[address], [address] [place] [address] NETTLE <0.10 Normal <0.[address] [facility] Comment on above: Result Comment: Clas s 0: Normal Performed By: #### R AP ####[facility] ([id number])[address], [address], [place] [address] OAK <0.10 Normal <0.[address] [facility] Comment on above: Result Comment: Clas s 0: Normal Performed By: #### R AP ####[facility] ([id number])[address], [address], [place] [address] PECAN HICKORY TREE <0.10 Normal <0.10 [facility] Comment on above: Result Comment: Clas s 0: Normal Performed By: #### R AP ####[facility] ([id number])[address], [address] [place] [address], [place] [address] PENICILLIUM CHRYSOGENUM <0.10 Normal <0.[address] [facility] Comment on above: Result Comment: Clas s 0: Normal Performed By: #### R AP ####[facility] ([id number])[address], [address], [place] [address] ROUGH MARSHELDER <0.10 Normal <0.10 [facility] Comment on above: Result Comment: Clas s 0: Normal Performed By: #### R AP ####[facility] ([id number])[address], [address] [place] [address] SALTWORT RICK THISTLE <0.10 Normal <0.10 [facility] Comment on above: Result Comment: Clas s 0: Normal Performed By: #### R AP ####[facility] ([id number])[address], [address], [place] [address] SHEEP SORREL <0.10 Normal <0.[address] [facility] Comment on above: Result Comment: Clas s 0: Normal Performed By: #### R AP ####[facility] ([id number])[address], [address] [place] [address] ANAI <0.10 Normal <0.[address] [facility] Comment on above: Result Comment: Clas s 0: Normal Performed By: #### R AP ####[facility] ([id number])[address], [address] [place] [address] WALNUT TREE POLLEN <0.10 Normal <0.10 [facility] Comment on above: Result Comment: Clas s 0: Normal Performed By: #### R AP ####[facility] ([id number])[address], [address] [place] [address] WHITE LAZARO <0.10 Normal <0.[address] [facility] Comment on above: Result Comment: Clas s 0: Normal Performed By: #### R AP ####[facility] ([id number])[address], [address] [place] [address] THYROID PROFILEon 06-17-2024 Free T4 [Mass/Vol] 1.06 ng/dL Normal 0.61-1.60 [facility] Comment on above: Performed By: #### 2 6449-9, 35855-1, HA1C, IMGB, 19231-2, CBC, THYR, 6771-0, 2132-03 #### [facility] ([id number]) [address], [address] [place] [address] #### 34250-9 #### [facility] ([id number]) [address] [place] [address], [place] [address] TSH 4.33 uIU/mL Normal 0.49-4.[address] [facility] Comment on above: Performed By: #### 2 6449-9, 12545-3, HA1C, IMGB, 43823-3, CBC, THYR, 6771-0, 2132-03 #### [facility] ([id number]) [address] [facility], [address] [place] [address] #### 36681-8 #### [facility] ([id number]) [address] [place] [address] VITAMIN B12on 06-17-2024 Cobalamin (Vitamin B12) [Mass/Vol] 460 pg/mL Normal 180-[address] [facility] Comment on above: Performed By: #### 2 6449-9, 05015-6, HA1C, IMGB, 75253-1, CBC, THYR, 6771-0, 2132-03 ####[facility] ([id number])[address] [facility], [address] [place] [address]#### 55965-0 ####[facility] ([id number])[address] [place] [address] HERPES SIMPLEX VIRAL PCRon 1 08-12-2023 HERPES SIMPLEX VIRAL PCR SPECIMEN SOURCE VAGINAL LESION HERPES SIMPLEX 1 PCR Negative (qualifier value) HSV 1 DNA Not Detected HERPES SIMPLEX 2 PCR Negative (qualifier value) HSV 2 DNA Not Detected Normal [facility] Comment on above: Performed By: #### H SV12 #### [facility] ([id number]) [address] [facility], [address] [place] [address] MAMM DIAGNOSTIC BILATERAL W CADon 03-05-2024 MAMM [...] results before leaving the department. Finalized by Alilson Min MD on 03/05/2024 1:43 PM 1 b MAMM 1 YR Normal [facility] US BREAST LT LIMITEDon 03-05 US [...] 2:12 PM 1 MAMM 1 YR Normal [facility] MR BRAIN W WO CONTon 024 MR BRAIN W WO CONT MR [...] clear. Temporal bones are clear. IMPRESSION: * [id number] burden of deep white matter signal changes, [...] Aneesh Mendez on 02/28/2024 11:47 AM Normal [facility] MR ORBIT W WO CONTon 024 [...] Aneesh Mendez on 02/28/2024 1:46 PM Normal [facility] MR CERVICAL SPINE W WO CONTo [...] Early MD on 02/27/2024 3:15 PM Normal [facility] CT BRAIN WO CONTon CT BRAIN [...] Valero MD on 01/30/2024 4:36 PM Normal [facility] Fecal Panc Elastaseon 2023 Pancreatic Elastase >800 Normal >=100 [facility] Comment on above: Result Comment: (NOT E) REFERENCE INTERVAL: Pancreatic Elastase Fecal by Immunoassay Less than 100 ug/g............Severe insufficiency 100 - 199 ug/g................Moderate insufficiency 200 ug/g or greater...........Normal INTERPRETIVE INFORMATION: Pancreatic Elastase Fecal by Immunoassay Reference intervals do not apply for infants less than one month old. Performed By: [facility] [address] [place] [address] Pharmacy Technician: Landon Winters MD, PhD CLIA Number: [id number] Performed By: #### A PEF #### [facility] [address] [place] [address] Contour Grinder: Casey Howard MD CBC AND AUTO DIFFon 01-03-20 24 ABSOLUTE BASOPHIL 0.1 X10E9/L Normal 0.0-0.2 [facility] Comment on above: Performed By: #### 2 6449-9, 80545-6, HA1C, IMGB, 44006-0, CBC, THYR, 6771-0, 2132-9 #### [facility] ([id number]) [address] [facility], [address] [place] [address] #### 26011-5 #### [facility] ([id number]) [address] [place] [address] ABSOLUTE NEUTROPHIL 5.8 X10E9/L Normal 1.5-6.6 [facility] Comment on above: Performed By: #### 2 6449-9, 93562-7, HA1C, IMGB, 91504-2, CBC, THYR, 6771-0, 2132-03 #### [facility] ([id number]) [address] [facility], [address] [place] [address] #### 67981-4 #### [facility] ([id number]) [address] [place] [address] Basophils/100 WBC (Bld) 0.9 % Normal [facility] Comment on above: Performed By: #### 2 6449-9, 10323-4, HA1C, IMGB, 80491-3, CBC, THYR, 6771-0, 2132-03 #### [facility] ([id number]) [address] [facility], [address] [place] [address] #### 26745-9 #### [facility] ([id number]) [address] [place] [address] Eosinophils (Bld) [#/Vol] 0.3 10*3/uL Normal 0.0-0.[address] [facility] Comment on above: Performed By: #### 2 6449-9, 40442-8, HA1C, IMGB, 10105-0, CBC, THYR, 6771-0, 2132-03 #### [facility] ([id number]) [address] [facility], [facility] [address] [place] [address] #### 75141-0 #### [facility] ([id number]) [address] [place] [address] Eosinophils/100 WBC (Bld) 3.5 % Normal [facility] Comment on above: Performed By: #### 2 6449-9, 36781-4, HA1C, IMGB, 62312-3, CBC, THYR, 6771-0, 2132-03 #### [facility] ([id number]) [address], [address] [place] [address] #### 29504-4 #### [facility] ([id number]) [address] [place] [address] Erythrocyte distribution width (RBC) [Ratio] 17.0 % High 11.5-15.[address] [facility] Comment on above: Performed By: #### 2 6449-9, 59364-9, HA1C, IMGB, 72222-8, CBC, THYR, 6771-0, 2132-03 #### [facility] ([id number]) [address], [address] [place] [address] #### 52840-4 #### [facility] ([id number]) [address] [place] [address] Hematocrit (Bld) [Volume fraction] 40.0 % Normal 35-[address] [facility] Comment on above: Performed By: #### 2 6449-9, 46627-0, HA1C, IMGB, 86638-4, CBC, THYR, 6771-0, 2132-03 #### [facility] ([id number]) [address], [address] [place] [address] #### 97672-1 #### [facility] ([id number]) [address] [place] [address] Hemoglobin (Bld) [Mass/Vol] 13.1 g/dL Normal 11.7-15.[address] [facility] Comment on above: Performed By: #### 2 6449-9, 72621-0, HA1C, IMGB, 54615-5, CBC, THYR, 6771-0, 2132-03 #### [facility] ([id number]) [address], [address] [place] [address] #### 51595-2 #### [facility] ([id number]) [address] [place] [address] Lymphocytes (Bld) [#/Vol] 1.6 10*3/uL Normal 1.0-3.[address] [facility] Comment on above: Performed By: #### 2 6449-9, 10468-3, HA1C, IMGB, 00516-3, CBC, THYR, 6771-0, 2132-03 #### [facility] ([id number]) [address] [facility], [address] [place] [address] #### 98919-2 #### [facility] ([id number]) [address] [place] [address] Lymphocytes/100 WBC (Bld) 19.3 % Normal [facility] Comment on above: Performed By: #### 2 6449-9, 59094-0, HA1C, IMGB, 68549-4, CBC, THYR, 6771-0, 2132-03 #### [facility] ([id number]) [address] [facility], [address] [place] [address] #### 03809-1 #### [facility] ([id number]) [address] [place] [address] 02983 MCH (RBC) [Entitic mass] 26.3 pg Low 27-[address] [facility] Comment on above: Performed By: #### 2 6449-9, 47804-3, HA1C, IMGB, 86444-9, CBC, THYR, 6771-0, 2132-03 #### [facility] ([id number]) [address] [facility], [address] [place] [address] #### 36312-6 #### [facility] ([id number]) [address] [place] [address]74 MCHC (RBC) [Mass/Vol] 32.8 g/dL Normal 32-36 [facility] Comment on above: Performed By: #### 2 6449-9, 29047-5, HA1C, IMGB, 67834-2, CBC, THYR, 6771-0, 2132-03 #### [facility] ([id number]) [address] [place] [address] #### 52358-9 #### [facility] ([id number]) [address] [place] [address]05 MCV (RBC) [Entitic vol] 80 fL Normal 80-[address] [facility] Comment on above: Performed By: #### 2 6449-9, 85256-0, HA1C, IMGB, 44677-4, CBC, THYR, 6771-0, 2132-03 #### [facility] ([id number]) [address], [address] [place] [address] #### 22944-3 #### [facility] ([id number]) [address] [place] [address]774 Monocytes (Bld) [#/Vol] 0.5 10*3/uL Normal 0-0.[address] [facility] Comment on above: Performed By: #### 2 6449-9, 67802-9, HA1C, IMGB, 62864-3, CBC, THYR, 6771-0, 2132-03 #### [facility] ([id number]) [address] [place] [address] #### 89838-0 #### [facility] ([id number]) [address] [place] [address]361 Monocytes/100 WBC (Bld) 5.7 % Normal [facility] Comment on above: Performed By: #### 2 6449-9, 88590-7, HA1C, IMGB, 69273-5, CBC, THYR, 6771-0, 2132-03 #### [facility] ([id number]) [address] [place] [address] #### 26715-9 #### [facility] ([id number]) [address] [place] [address] 13930 Neutrophils/100 WBC (Bld) 70.6 % Normal [facility] Comment on above: Performed By: #### 2 6449-9, 50186-8, HA1C, IMGB, 36610-5, CBC, THYR, 6771-0, 2132-03 #### [facility] ([id number]) [address] [place] [address] #### 78123-9 #### [facility] ([id number]) [address] [place] [address] 81573 Platelet mean volume (Bld) [Entitic vol] 8.1 fL Normal 7-[address] [facility] Comment on above: Performed By: #### 2 6449-9, 71234-1, HA1C, IMGB, 27510-8, CBC, THYR, 6771-0, 2132-03 #### [facility] ([id number]) [address], [address] [place] [address] #### 56207-3 #### [facility] ([id number]) [address] [place] [address]3677 Platelets (Bld) [#/Vol] 355 10*3/uL Normal 150-[address] [facility] Comment on above: Performed By: #### 2 6449-9, 84926-9, HA1C, IMGB, 91044-3, CBC, THYR, 6771-0, 2132-03 #### [facility] ([id number]) [address], [address] [place] [address] #### 04163-1 #### [facility] ([id number]) [address] [place] [address] 85670 RBC COUNT 5.00 X10E12/L Normal 3.80-5.[address] [facility] Comment on above: Performed By: #### 2 6449-9, 66885-6, HA1C, IMGB, 89773-5, CBC, THYR, 6771-0, 2132-03 #### [facility] ([id number]) [address], [address] [place] [address] #### 36646-4 #### [facility] ([id number]) [address] [place] [address] 24718 WBC (Bld) [#/Vol] 8.3 10*3/uL Normal 4.0-11.0 [facility] Comment on above: Performed By: #### 2 6449-9, 26706-4, HA1C, IMGB, 93564-3, CBC, THYR, 6771-0, 2132-03 #### [facility] ([id number]) [address] [facility], [address] [place] [address] #### 72397-0 #### [facility] ([id number]) [address] [place] [address]1077 COMPREHENSIVE METABOLIC PANE Toribio 01-03-2024 Albumin [Mass/Vol] 4.3 g/dL Normal 3.2-5.3 [facility] Comment on above: Performed By: #### 2 6449-9, 26914-4, HA1C, IMGB, 97970-3, CBC, THYR, 6771-0, 2132-03 #### [facility] ([id number]) [address] [facility], [address] [place] [address] #### 66020-9 #### [facility] ([id number]) [address] [place] [address] 06907 ALP [Catalytic activity/Vol] 77 U/L Normal 39-[address] [facility] Comment on above: Performed By: #### 2 6449-9, 26401-1, HA1C, IMGB, 96256-1, CBC, THYR, 6771-0, 2132-03 #### [facility] ([id number]) [address], [address] [place] [address] #### 16302-0 #### [facility] ([id number]) [address] [place] [address] 12452 ALT [Catalytic activity/Vol] 33 U/L High 0-[address] [facility] Comment on above: Performed By: #### 2 6449-9, 37679-7, HA1C, IMGB, 09496-0, CBC, THYR, 6771-0, 2132-03 #### [facility] ([id number]) [address], [address] [place] [address] #### 54524-8 #### [facility] ([id number]) [address] [place] [address]256 Anion gap [Moles/Vol] 12 mmol/L Normal 5-15 [facility] Comment on above: Performed By: #### 2 6449-9, 04697-2, HA1C, IMGB, 13997-7, CBC, THYR, 6771-0, 2132-03 #### [facility] ([id number]) [address], [address] [place] [address] #### 13784-3 #### [facility] ([id number]) [address] [place] [address] 39516 AST [Catalytic activity/Vol] 24 U/L Normal 0-[address] [facility] Comment on above: Performed By: #### 2 6449-9, 21913-0, HA1C, IMGB, 52189-2, CBC, THYR, 6771-0, 2132-03 #### [facility] ([id number]) [address], [address] [place] [address] #### 59603-3 #### [facility] ([id number]) [address] [place] [address] 27998 Bilirubin [Mass/Vol] 0.3 mg/dL Normal 0.3-1.2 [facility] Comment on above: Performed By: #### 2 6449-9, 01323-3, HA1C, IMGB, 98866-5, CBC, THYR, 6771-0, 2132-03 #### [facility] ([id number]) [address] [facility], [address] [place] [address] #### 21877-5 #### [facility] ([id number]) [address] [place] [address]20 Calcium [Mass/Vol] 8.8 mg/dL Normal 8.5-10.5 [facility] Comment on above: Performed By: #### 2 6449-9, 97875-9, HA1C, IMGB, 82165-7, CBC, THYR, 6771-0, 2132-03 #### [facility] ([id number]) [address], [address] [place] [address] #### 02024-7 #### [place] [facility] ([id number]) [address] [place] [address] 15520 Chloride [Moles/Vol] 101 mmol/L Normal 98-109 [facility] Comment on above: Performed By: #### 2 6449-9, 61427-8, HA1C, IMGB, 68264-0, CBC, THYR, 6771-0, 2132-03 #### [facility] ([id number]) [address], [address] [place] [address] #### 43827-9 #### [facility] ([id number]) [address] [place] [address] 32540 CO2 [Moles/Vol] 22 mmol/L Normal 22-[address] [facility] Comment on above: Performed By: #### 2 6449-9, 95070-1, HA1C, IMGB, 96491-7, CBC, THYR, 6771-0, 2132-03 #### [facility] ([id number]) [address], [address] [place] [address] #### 22122-5 #### [facility] ([id number]) [address] [place] [address] 24913 Creatinine [Mass/Vol] 0.67 mg/dL Normal 0.40-1.00 [facility] Comment on above: Result Comment: METH OD TRACEABLE TO IDMS STANDARD Performed By: #### 2 6449-9, 96665-9, HA1C, IMGB, 72070-6, CBC, THYR, 6771-0, 2132-03 #### [facility] ([id number]) [address] [facility], [address] [place] [address] #### 31141-9 #### [facility] ([id number]) [address] [place] [address] 19836 eGFR (CKD-EPI) NON-RACE DEPENDENT >90 Normal >[address] [facility] Comment on above: Result Comment: Reported eGFR is based on the CKD-EPI 2020 equation that does not use a race coefficient. Performed By: #### 2 6449-9, 51491-1, HA1C, IMGB, 32006-0, CBC, THYR, 6771-0, 2132-03 #### [facility] ([id number]) [address] [facility], [address] [place] [address] #### 19096-8 #### [facility] ([id number]) [address] [place] [address] 58641 Glucose [Mass/Vol] 165 mg/dL High 65-99 [facility] Comment on above: Performed By: #### 2 6449-9, 42147-6, HA1C, IMGB, 46021-3, CBC, THYR, 6771-0, 2132-03 #### [facility] ([id number]) [address], [address] [place] [address] #### 83485-5 #### [facility] ([id number]) [address] [place] [address] 96383 Potassium [Moles/Vol] 4.0 mmol/L Normal 3.5-5.0 [facility] Comment on above: Performed By: #### 2 6449-9, 55124-9, HA1C, IMGB, 60998-0, CBC, THYR, 6771-0, 2132-03 #### [facility] ([id number]) [address] [address] #### 31432-4 #### [facility] ([id number]) [address] [place] [address] 31832 Protein [Mass/Vol] 7.8 g/dL Normal 6.0-8.0 [facility] Comment on above: Performed By: #### 2 6449-9, 73050-1, HA1C, IMGB, 32349-0, CBC, THYR, 6771-0, 2132-03 #### [facility] ([id number]) [address] [facility], [address] [place] [address] #### 29310-0 #### [facility] ([id number]) [address] [place] [address] 17294 Sodium [Moles/Vol] 135 mmol/L Normal 134-146 [facility] Comment on above: Performed By: #### 2 6449-9, 89975-4, HA1C, IMGB, 15959-4, CBC, THYR, 6771-0, 2132-03 #### [facility] ([id number]) [address] [facility], [address] [place] [address] #### 57469-4 #### [facility] ([id number]) [address] [facility] [place] [address] Urea nitrogen [Mass/Vol] 14 mg/dL Normal - [facility] Comment on above: Performed By: #### 2 6449-9, 50886-1, HA1C, IMGB, 65930-9, CBC, THYR, 6771-0, 2132-03 #### [facility] ([id number]) [address] [facility], [address] [place] [address] #### 37535-0 #### [facility] ([id number]) [address] [facility] [place], [place] [address] CT ABDOMEN AND PELVIS WO CON Ton [...] Lawson MD on 01/03/2024 10:20 PM Normal [facility] HCG ( test) Ql (U)o n 01-03-2024 Beta HCG ( test) Ql (U) Negative Normal NEG [facility] Comment on above: Performed By: #### 2 6449-9, 35798-1, HA1C, IMGB, 96048-6, CBC, THYR, 6771-0, 2132-03 #### [facility] ([id number]) [address], [address] [place] [address] #### 45308-2 #### [facility] ([id number]) [address] [place] [address] 98636 URN MACROSCOPIC NURon 2023 BILIRUBIN JOURDAN Negative Normal NEG [facility] Comment on above: Performed By: #### 2 6449-9, 46690-6, HA1C, IMGB, 79159-2, CBC, THYR, 6771-0, 2132-03 #### [facility] ([id number]) [address], [address] [place] [address] #### 85574-5 #### [facility] ([id number]) [address] [place] [address] 20413 BLOOD/HGB JOURDAN Trace Abnormal NEG [facility] Comment on above: Performed By: #### 2 6449-9, 81565-4, HA1C, IMGB, 38757-5, CBC, THYR, 6771-0, 2132-03 #### [facility] ([id number]) [address], [address] [place] [address] #### 13349-0 #### [facility] ([id number]) [address] [place] [address] 65110 GLUCOSE JOURDAN Negative Normal NEG [facility] Comment on above: Performed By: #### 2 6449-9, 53820-0, HA1C, IMGB, 65883-9, CBC, THYR, 6771-0, 2132-03 #### [facility] ([id number]) [address], [address] [place] [address] #### 14496-2 #### [facility] ([id number]) [address] [place] [address] 15257 KETONES JOURDAN Negative Normal NEG [facility] Comment on above: Performed By: #### 2 6449-9, 19681-8, HA1C, IMGB, 43855-1, CBC, THYR, 6771-0, 2132-03 #### [facility] ([id number]) [address] [place] [address], [address] [place] [address] #### 45185-0 #### [facility] ([id number]) [address] [place] [address] 73936 LEUKOCYTE ESTERASE JOURDAN Negative Normal NEG [facility] Comment on above: Performed By: #### 2 6449-9, 46071-5, HA1C, IMGB, 51737-4, CBC, THYR, 6771-0, 2132-03 #### [facility] ([id number]) [address] [place] [address], [address] [place] [address] #### 00936-5 #### [facility] ([id number]) [address] [place] [address] 97774 NITRITE JOURDAN Negative Normal NEG [facility] Comment on above: Performed By: #### 2 6449-9, 62681-0, HA1C, IMGB, 14144-9, CBC, THYR, 6771-0, 2132-03 #### [facility] ([id number]) [address] [place] [address], [address] [place] [address] #### 92141-3 #### [facility] ([id number]) [address] [place] [address] 14171 PH JOURDAN 6.0 Normal 5.0-8.[address] [facility] Comment on above: Performed By: #### 2 6449-9, 42762-2, HA1C, IMGB, 77567-5, CBC, THYR, 6771-0, 2132-03 #### [facility] ([id number]) [address] [facility], [address] [place] [address] #### 33905-6 #### [facility] ([id number]) [address] [place] [address] 92300 PROTEIN JOURDAN Negative Normal NEG [facility] Comment on above: Performed By: #### 2 6449-9, 74383-9, HA1C, IMGB, 60211-8, CBC, THYR, 6771-0, 2132-03 #### [facility] ([id number]) [address] [facility], [address] [place] [address] #### 28703-7 #### [facility] ([id number]) [address] [place] [address] 81376 SPECIFIC GRAVITY JOURDAN 1.025 Normal 1.003-1.035 [facility] Comment on above: Performed By: #### 2 6449-9, 53928-3, HA1C, IMGB, 64596-8, CBC, THYR, 6771-0, 2132-03 #### [facility] ([id number]) [address] [facility], [address] [place] [address] #### 70533-8 #### [facility] ([id number]) [address] [place] [address] 84447 UROBILINOGEN JOURDAN 0.2 eu/dL Normal <1.1 [facility] Comment on above: Performed By: #### 2 6449-9, 49927-4, HA1C, IMGB, 94236-8, CBC, THYR, 6771-0, 2132-03 #### [facility] ([id number]) [address] [facility], [address] [place] [address] #### 68601-8 #### [facility] ([id number]) [address] [place] [address] 90530 US ABDOMEN LIMITEDon 024 US ABDOMEN LIMITED [...] result Normal [facility] US Abdomen limitedon 024 1. Cholecystectomy. [...] upper quadrant ascites. 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 [facility] Radiology Study observation (narrative) [facility] US Abdomen limitedOrdered By : Alfonso Ramos on 01-02-2024 [facility] Work Phone: Celiac Disease Panelon 12-27 Gliadin Deam Pep IgG <0.4 Normal <7.0 [facility] Comment on above: Result Comment: CELIAC INTERPRETATION <7.0 Negative 7.0-10.0 Equivocal >10.0 Positive units: U/mL Performed By: #### C PBILC CDP, LIP #### [address] [place] [phone] Contour Grinder: Allison Zavaleta MD #### CELP #### [address] [phone] Contour Grinder: Zac Servin MD Gliadin Deam Pep IgA 1.1 U/mL Normal <7.0 [facility] Comment on above: Result Comment: CELIAC INTERPRETATION <7.0 Negative 7.0-10.0 Equivocal >10.0 Positive units: U/mL Performed By: #### C PBILC CDP, LIP #### [facility] [address] [place] [address] [place] [address] Contour Grinder: Allison Zavaleta MD #### CELP #### [address] [phone] Contour Grinder: Zac Servin MD Tiss Transglutam IgA 0.4 U/mL Normal <7.0 [facility] Comment on above: Result Comment: CELIAC INTERPRETATION <7.0 Negative 7.0-10.0 Equivocal >10.0 Positive units: U/mL Performed By: #### C PBILC CDP, LIP #### [facility] [address] [place] [address] [place], [place] [phone] Contour Grinder: Allison Zavaleta MD #### CELP #### [address] [address] Contour Grinder: Zac Servin MD Celiac Disease Panelon 12-26 IgA [Mass/Vol] 188 mg/dL Normal 70-400 [facility] Comment on above: Performed By: #### C PBILC, CDP, LIP #### [facility] [address] [place] [address] [place] [address] Contour Grinder: Allison Zavaleta MD #### CELP #### [address] [address] Contour Grinder: Zac Servin MD CBC with Diffon 12-26-2023 Abs. Basophil 0.03 k/uL Normal 0.00-0.20 [facility] Comment on above: Performed By: #### C PBILC, CDP, LIP #### [facility] [address] [place] [address] Dr[address] [place] [phone] Contour Grinder: Allison Zavaleta MD #### CELP #### [address] [address] Contour Grinder: Zac Servin MD Abs.Imm.Granulocyte <0.03 Normal 0.00-0.30 [facility] Comment on above: Performed By: #### C PBILC, CDP, LIP #### [facility] [address] [place] [address] [place], [place] [phone] Contour Grinder: Allison Zavaleta MD #### CELP #### [address] [address] Contour Grinder: Zac Servin MD Abs.Neutrophil (Seg) 4.18 k/uL Normal 1.50-8.10 [facility] Comment on above: Performed By: #### C PBILC, CDP, LIP #### [facility] [address] [place], [place] [phone] Contour Grinder: Allison Zavaleta MD #### CELP #### [address] [phone] Contour Grinder: Zac Servin MD Basophils/100 WBC (Bld) 0 % Normal 0-2 [facility] Comment on above: Performed By: #### C PBILC, CDP, LIP #### [facility] [address] [place], [place] [phone] Contour Grinder: Allison Zavaleta MD #### CELP #### [address] [phone] Contour Grinder: Zac Servin MD Eosinophils (Bld) [#/Vol] 0.29 10*3/uL Normal 0.00-0.44 [facility] Comment on above: Performed By: #### C PBILC, CDP, LIP #### [facility] [address] [place] [phone] Contour Grinder: Allison Zavaleta MD #### CELP #### [address] [phone] Contour Grinder: Zac Servin MD Eosinophils/100 WBC (Bld) 4 % Normal 1-4 [facility] Comment on above: Performed By: #### C PBILC, CDP, LIP #### [facility] [address] [place] [address] [place], [place] 1914783 Contour Grinder: Allison Zavaleta MD #### CELP #### [address] [phone] Contour Grinder: Zac Servin MD Erythrocyte distribution width (RBC) [Ratio] 15.9 % High 11.8-14.4 [facility] Comment on above: Performed By: #### C PBILC, CDP, LIP #### [facility] [address] [place], [place] [phone] Contour Grinder: Allison Zavaleta MD #### CELP #### [address] [phone] Contour Grinder: Zac Servin MD Hematocrit (Bld) [Volume fraction] 43.5 % Normal 36.3-47.1 [facility] Comment on above: Performed By: #### C PBILC, CDP, LIP #### [facility] [address] [place], [place] [phone] Contour Grinder: Allison Zavaleta MD #### CELP #### [address] [phone] Contour Grinder: Zac Servin MD Hemoglobin (Bld) [Mass/Vol] 13.4 g/dL Normal 11.9-15.1 [facility] Comment on above: Performed By: #### C PBILC, CDP, LIP #### [facility] [address] [place] [phone] Contour Grinder: Allison Zavaleta MD #### CELP #### [address] [phone] Contour Grinder: Zac Servin MD Immature granulocytes/100 WBC (Bld) 0 % Normal 0 [facility] Comment on above: Performed By: #### C PBILC, CDP, LIP #### [facility] [address] [place], [place] 4991983 Contour Grinder: Allison Zavaleta MD #### CELP #### [address] [address] Contour Grinder: Zac Servin MD Lymphocytes (Bld) [#/Vol] 1.87 10*3/uL Normal 1.10-3.70 [facility] Comment on above: Performed By: #### C PBILC, CDP, LIP #### [facility] [address] [place], [place] [phone] Contour Grinder: Allison Zavaleta MD #### CELP #### [place] [address] [place], [place] 8388108 Contour Grinder: Zac Servin MD Lymphocytes/100 WBC (Bld) 27 % Normal 24-43 [facility] Comment on above: Performed By: #### C PBILC, CDP, LIP #### [facility] [address] [place], [place] 5270383 Contour Grinder: Allison Zavaleta MD #### CELP #### [place] [address] [place], [place] 6582808 Contour Grinder: Zac Servin MD MCH (RBC) [Entitic mass] 25.8 pg Normal 25.2-33.5 [facility] Comment on above: Performed By: #### C PBILC, CDP, LIP #### [facility] [address] [place] [address] Contour Grinder: Allison Zavaleta MD #### CELP #### [address] [phone] Contour Grinder: Zac Servin MD MCHC (RBC) [Mass/Vol] 30.8 g/dL Normal 28.4-34.8 [facility] Comment on above: Performed By: #### C PBILC, CDP, LIP #### [facility] [address] [place] [address] Contour Grinder: Allison Zavaleta MD #### CELP #### [place] [address] [place], [place] [phone] Contour Grinder: Zac Servin MD MCV (RBC) [Entitic vol] 83.8 fL Normal 82.6-102.9 [facility] Comment on above: Performed By: #### C PBILC, CDP, LIP #### [facility] [address] [place], [place] 8187083 Contour Grinder: Allison Zavaleta MD #### CELP #### [address] [address] Contour Grinder: Zac Servin MD Monocytes (Bld) [#/Vol] 0.51 10*3/uL Normal 0.10-1.20 [facility] Comment on above: Performed By: #### C PBILC, CDP, LIP #### [facility] [address] [place], [place] 5847583 Contour Grinder: Allison Zavaleta MD #### CELP #### [address] [address] Contour Grinder: Zac Servin MD Monocytes/100 WBC (Bld) 7 % Normal 3-12 [facility] Comment on above: Performed By: #### C PBILC, CDP, LIP #### [facility] [address] [place], [place] 1357683 Contour Grinder: Allison Zavaleta MD #### CELP #### [address] [address] Contour Grinder: Zac Servin MD Neutrophil (Seg) 62 % Normal 36-65 [facility] Comment on above: Performed By: #### C PBILC, CDP, LIP #### [facility] [address] [place], [place] 8076483 Contour Grinder: Allison Zavaleta MD #### CELP #### [address] [address] Contour Grinder: Zac Servin MD NRBC Automated 0.0 per 100 WBC Normal 0.0 [facility] Comment on above: Performed By: #### C PBILC, CDP, LIP #### [facility] [address] [place], [place] [id number] Contour Grinder: Allison Zavaleta MD #### CELP #### [place] [address] [place], [place] 5196108 Contour Grinder: Zac Servin MD Platelet mean volume (Bld) [Entitic vol] 9.8 fL Normal 8.1-13.5 [facility] Comment on above: Performed By: #### C PBILC, CDP, LIP #### [facility] [address] [place], [place] 7367883 Contour Grinder: Allison Zavaleat MD #### CELP #### [address] [phone] Contour Grinder: Zac Servin MD Platelets (Bld) [#/Vol] 341 10*3/uL Normal 138-453 [facility] Comment on above: Performed By: #### C PBILC, CDP, LIP #### [facility] [address] [place] [address] [place], [place] 4079083 Contour Grinder: Allison Zavaleta MD #### CELP #### [address] [phone] Contour Grinder: Zac Servin MD RBC (Bld) [#/Vol] 5.19 10*6/uL High 3.95-5.11 [facility] Comment on above: Performed By: #### C PBILC, CDP, LIP #### [facility] [address] [place], [place] 5744983 Contour Grinder: Allison Zavaleta MD #### CELP #### [place] [address] [place], [place] 6294408 Contour Grinder: Zac Servin MD WBC (Bld) [#/Vol] 6.9 10*3/uL Normal 3.5-11.3 [facility] Comment on above: Performed By: #### C PBILC, CDP, LIP #### [facility] [address] [place], [place] [phone] Contour Grinder: Allison Zavaleta MD #### CELP #### [address] [address] Contour Grinder: Zac Servin MD Comp Metab w/Bili Pron 12-25 Albumin [Mass/Vol] 4.3 g/dL Normal 3.5-5.2 [facility] Comment on above: Performed By: #### C PBILC, CDP, LIP #### [facility] [address] [place] [address] Dr. [place], [place] [phone] Contour Grinder: Allison Zavaleta MD #### CELP #### [address] [address] Contour Grinder: Zac Servin MD Albumin/Glob Ratio 1.4 Normal 1.0-2.5 [facility] Comment on above: Performed By: #### C PBILC, CDP, LIP #### [facility] [address] [place] [address] Dr[place], [place] 2681183 Contour Grinder: Allison Zavaleta MD #### CELP #### [address] [address] Contour Grinder: Zac Servin MD Alkaline Phos 91 U/L Normal 35-104 [facility] Comment on above: Performed By: #### C PBILC, CDP, LIP #### [facility] [address] [place], [place] 7893383 Contour Grinder: Allison Zavaleta MD #### CELP #### [address] [address] Contour Grinder: Zac Servin MD ALT [Catalytic activity/Vol] 22 U/L Normal 5-33 [facility] Comment on above: Performed By: #### C PBILC, CDP, LIP #### [facility] [address] [place], [place] 6244383 Contour Grinder: Allison Zavaleta MD #### CELP #### [address] [phone] Contour Grinder: Zac Servin MD Anion gap [Moles/Vol] 10 mmol/L Normal 9-17 [facility] Comment on above: Performed By: #### C PBILC, CDP, LIP #### [facility] [address] [place], [place] 1415083 Contour Grinder: Allison Zavaleta MD #### CELP #### [address] [phone] Contour Grinder: Zac Servin MD AST [Catalytic activity/Vol] 16 U/L Normal <32 [facility] Comment on above: Performed By: #### C PBRAIZA, CDP, LIP #### [facility] [address] [place] [address] [place], [place] 2018583 Contour Grinder: Allison Zavaleta MD #### CELP #### [address] [address] Contour Grinder: Zac Servin MD Bilirubin [Mass/Vol] 0.3 mg/dL Normal 0.3-1.2 [facility] Comment on above: Performed By: #### C PBILC, CDP, LIP #### [facility] [address] [place] [address] [place], [place] 0967383 Contour Grinder: Allison Zavaleta MD #### CELP #### [address] [address] Contour Grinder: Zac Servin MD Bilirubin, Indirect Can not be calculated Normal 0.0-1 .0 [facility] Comment on above: Performed By: #### C PBILC, CDP, LIP #### [facility] [address] [place], [place] 3742283 Contour Grinder: Allison Zavaleta MD #### CELP #### [address] [phone] Contour Grinder: Zac Servin MD Bilirubin.indirect [Mass/Vol] mg/dL Normal <0.3 [facility] Comment on above: Performed By: #### C PBILC, CDP, LIP #### [facility] [address] [place], [place] 1186183 Contour Grinder: Allison Zavaleta MD #### CELP #### [address] [phone] Contour Grinder: Zac Servin MD Calcium [Mass/Vol] 8.9 mg/dL Normal 8.6-10.4 [facility] Comment on above: Performed By: #### C PBILC, CDP, LIP #### [facility] [address] [place] [address] Dr. [place], [place] 3509883 Contour Grinder: Allison Zavaleta MD #### CELP #### [address] [address] Contour Grinder: Zac Servin MD Chloride [Moles/Vol] 101 mmol/L Normal 98-107 [facility] Comment on above: Performed By: #### C PBILC, CDP, LIP #### [facility] [address] [place] [address] Dr. [place], [place] 2624183 Contour Grinder: Allison Zavaleta MD #### CELP #### [address] [address] Contour Grinder: Zac Servin MD CO2 [Moles/Vol] 27 mmol/L Normal 20-31 [facility] Comment on above: Performed By: #### C PBILC, CDP, LIP #### [facility] [address] [place] [address] Dr[place], [place] 0561483 Contour Grinder: Allison Zvaaleta MD #### CELP #### [facility] [address] [place], [place] [phone] Contour Grinder: Zac Servin MD Creatinine [Mass/Vol] 0.7 mg/dL Normal 0.5-0.9 [facility] Comment on above: Performed By: #### C PBRAIZA CDP, LIP #### [facility] [address] [place] [address] Dr. [place], [place] 0973883 Contour Grinder: Allison Zavaleta MD #### CELP #### [address] [phone] Contour Grinder: Zac Servin MD GFR/1.73 sq M.predicted among non-blacks MDRD (S/P/Bld) [Vol rate/Area] mL/min/{1.73_m2} Normal >60 [facility] Comment on above: Result Comment: These [...] By: #### C NIC MARIANO, LIP #### [address] [place], [place] 2856383 Contour Grinder: Allison Zavaleta MD #### CELP #### [place] [address] [place], [place] 6832608 Contour Grinder: Zac Servin MD Glucose [Mass/Vol] 135 mg/dL High 70-99 [facility] Comment on above: Performed By: #### C PBRAIZA CDP, LIP #### [address] [place] [address] Contour Grinder: Allison Zavaleta MD #### CELP #### [place] [place], [place] 4949008 Contour Grinder: Zac Servin MD Potassium [Moles/Vol] 4.1 mmol/L Normal 3.7-5.3 [facility] Comment on above: Performed By: #### C PBILC, CDP, LIP #### [facility] [address] [place], [place] [id number] Contour Grinder: Allison Zavaleta MD #### CELP #### [address] [id number] Contour Grinder: Zac Servin MD Protein [Mass/Vol] 7.4 g/dL Normal 6.4-8.3 [facility] Comment on above: Performed By: #### C PBILC, CDP, LIP #### [facility] [address] [place] [address] [place], [place] [id number] Contour Grinder: Allison Zavaleta MD #### CELP #### [address] [id number] Contour Grinder: Zac Servin MD Sodium [Moles/Vol] 138 mmol/L Normal 135-144 [facility] [facility] Comment on above: Performed By: #### C PBILC, CDP, LIP #### [facility] [address] [place] [address] [place], [place] [id number] Contour Grinder: Allison Zavaleta MD #### CELP #### [address] [id number] Contour Grinder: Zac Servin MD Urea nitrogen [Mass/Vol] 12 mg/dL Normal 6-20 [facility] Comment on above: Performed By: #### C PBILC, CDP, LIP #### [facility] [address] [place], [place] [id number] Contour Grinder: Allison Zavaleta MD #### CELP #### [address] [place] [address] Contour Grinder: Zac Servin MD Lipaseon 12-26-2023 Lipase [Catalytic activity/Vol] 36 U/L Normal 13-60 [facility] Comment on above: Performed By: #### C PBILC, CDP, LIP #### [facility] [address] [place] [address] Contour Grinder: Allison Zavaleta MD #### CELP #### [facility] [address] [place] [address] Contour Grinder: Zac Servin MD COMPLETE BLOOD COUNTon 12-12 Erythrocyte distribution width (RBC) [Ratio] 18.2 % High 11.5-15.[address] [facility] Comment on above: Performed By: #### 2 6449-9, 36378-2, HA1C, IMGB, 54280-5, CBC, THYR, 6771-0, 2132-03 #### [facility] ([id number]) [address] [place] [address], [address] [place] [address] #### 68599-0 #### [facility] ([id number]) [address] [place] [address] 17184 Hematocrit (Bld) [Volume fraction] 42.1 % Normal 35-[address] [facility] Comment on above: Performed By: #### 2 6449-9, 18884-4, HA1C, IMGB, 58853-3, CBC, THYR, 6771-0, 2132-03 #### [facility] ([id number]) [address] [place] [address], [address] [place] [address] #### 91145-2 #### [facility] ([id number]) [address] [place] [address]41 Hemoglobin (Bld) [Mass/Vol] 13.6 g/dL Normal 11.7-15.[address] [facility] Comment on above: Performed By: #### 2 6449-9, 78218-7, HA1C, IMGB, 97005-1, CBC, THYR, 6771-0, 2132-03 #### [facility] ([id number]) [address], [address] [place] [address] #### 86002-0 #### [facility] ([id number]) [address] [place] [address] 11124 MCH (RBC) [Entitic mass] 26.3 pg Low 27-[address] [facility] Comment on above: Performed By: #### 2 6449-9, 11858-8, HA1C, IMGB, 12754-4, CBC, THYR, 6771-0, 2132-03 #### [facility] ([id number]) [address], [address] [place] [address] #### 29575-2 #### [facility] ([id number]) [address] [place] [address] 29404 MCHC (RBC) [Mass/Vol] 32.4 g/dL Normal 32-36 [facility] Comment on above: Performed By: #### 2 6449-9, 03891-9, HA1C, IMGB, 06925-5, CBC, THYR, 6771-0, 2132-03 #### [facility] ([id number]) [address], [address] [place] [address] #### 06820-9 #### [facility] ([id number]) [address] [place] [address] 53626 MCV (RBC) [Entitic vol] 81 fL Normal 80-[address] [facility] Comment on above: Performed By: #### 2 6449-9, 78569-1, HA1C, IMGB, 73674-3, CBC, THYR, 6771-0, 2132-03 #### [facility] ([id number]) [address], [address] [place] [address] #### 62923-0 #### [facility] ([id number]) [address] [place] [address] 37593 Platelet mean volume (Bld) [Entitic vol] 8.2 fL Normal 7-[address] [facility] Comment on above: Performed By: #### 2 6449-9, 56856-7, HA1C, IMGB, 42270-7, CBC, THYR, 6771-0, 2132-03 #### [facility] ([id number]) [address], [address] [place] [address] #### 85873-9 #### [facility] ([id number]) [address] [place] [address] 99702 Platelets (Bld) [#/Vol] 338 10*3/uL Normal 150-[address] [facility] Comment on above: Performed By: #### 2 6449-9, 25360-2, HA1C, IMGB, 91488-4, CBC, THYR, 6771-0, 2132-03 #### [facility] ([id number]) [address], [address] [place] [address] #### 26738-6 #### [facility] ([id number]) [address] [place] [address] 60867 RBC COUNT 5.19 X10E12/L Normal 3.80-5.[address] [facility] Comment on above: Performed By: #### 2 6449-9, 30201-1, HA1C, IMGB, 17757-7, CBC, THYR, 6771-0, 2132-03 #### [facility] ([id number]) [address], [address] [place] [address] #### 02343-9 #### [facility] ([id number]) [address] [place] [address] 35634 WBC (Bld) [#/Vol] 7.7 10*3/uL Normal 4.0-11.0 [facility] Comment on above: Performed By: #### 2 6449-9, 42461-5, HA1C, IMGB, 92441-4, CBC, THYR, 6771-0, 2132-03 #### [facility] ([id number]) [address] [facility], [address] [place] [address] #### 42212-3 #### [facility] ([id number]) [address] [place] [address] 12213 COMPREHENSIVE METABOLIC PANE Toribio 12-13-2023 Albumin [Mass/Vol] 4.4 g/dL Normal 3.2-5.3 [facility] Comment on above: Performed By: #### 2 6449-9, 47967-1, HA1C, IMGB, 11805-2, CBC, THYR, 6771-0, 2132-03 #### [facility] ([id number]) [address] [facility], [address] [place] [address] #### 56011-6 #### [facility] ([id number]) [address] [place] [address] 72256 ALP [Catalytic activity/Vol] 81 U/L Normal 39-[address] [facility] Comment on above: Performed By: #### 2 6449-9, 78696-3, HA1C, IMGB, 81158-3, CBC, THYR, 6771-0, 2132-03 #### [facility] ([id number]) [address] [facility], [address] [place] [address] #### 11790-2 #### [facility] ([id number]) [address] [place] [address] 16513 ALT [Catalytic activity/Vol] 27 U/L Normal 0-[address] [facility] Comment on above: Performed By: #### 2 6449-9, 33377-4, HA1C, IMGB, 47409-3, CBC, THYR, 6771-0, 2132-03 #### [facility] ([id number]) [address], [address] [place] [address] #### 59709-5 #### [facility] ([id number]) [address] [place] [address] 10650 Anion gap [Moles/Vol] 9 mmol/L Normal 5-15 [facility] Comment on above: Performed By: #### 2 6449-9, 75212-0, HA1C, IMGB, 17365-5, CBC, THYR, 6771-0, 2132-03 #### [facility] ([id number]) [address], [address] [place] [address] #### 59340-0 #### [facility] ([id number]) [address] [place] [address] 02724 AST [Catalytic activity/Vol] 20 U/L Normal 0-[address] [facility] Comment on above: Performed By: #### 2 6449-9, 76033-1, HA1C, IMGB, 06479-3, CBC, THYR, 6771-0, 2132-03 #### [facility] ([id number]) [address], [address] [place] [address] #### 25514-0 #### [facility] ([id number]) [address] [place] [address] 93443 Bilirubin [Mass/Vol] 0.4 mg/dL Normal 0.3-1.2 [facility] Comment on above: Performed By: #### 2 6449-9, 63961-3, HA1C, IMGB, 92750-6, CBC, THYR, 6771-0, 2132-03 #### [facility] ([id number]) [address], [address] [place] [address] #### 87772-1 #### [facility] ([id number]) [address] [place] [address] 03469 Calcium [Mass/Vol] 9.2 mg/dL Normal 8.5-10.5 [facility] Comment on above: Performed By: #### 2 6449-9, 34694-5, HA1C, IMGB, 73329-3, CBC, THYR, 6771-0, 2132-03 #### [facility] ([id number]) [address] [facility], [address] [place] [address] #### 05814-5 #### [facility] ([id number]) [address] [place] [address] 47712 Chloride [Moles/Vol] 103 mmol/L Normal 98-109 [facility] Comment on above: Performed By: #### 2 6449-9, 57399-3, HA1C, IMGB, 16548-3, CBC, THYR, 6771-0, 2132-03 #### [facility] ([id number]) [address] [facility], [address] [place] [address] #### 34139-4 #### [facility] ([id number]) [address] [place] [address] 39438 CO2 [Moles/Vol] 26 mmol/L Normal 22-[address] [facility] Comment on above: Performed By: #### 2 6449-9, 02167-7, HA1C, IMGB, 94987-4, CBC, THYR, 6771-0, 2132-03 #### [facility] ([id number]) [address] [facility], [address] [place] [address] #### 48126-9 #### [facility] ([id number]) [address] [place] [address] 79377 Creatinine [Mass/Vol] 0.69 mg/dL Normal 0.40-1.00 [facility] Comment on above: Result Comment: METH OD TRACEABLE TO IDMS STANDARD Performed By: #### 2 6449-9, 82398-9, HA1C, IMGB, 23410-8, CBC, THYR, 6771-0, 2132-03 #### [facility] ([id number]) [address] [facility], [address] [place] [address] #### 33117-5 #### [facility] ([id number]) [address] [place] [address] 07384 eGFR (CKD-EPI) NON-RACE DEPENDENT >90 Normal >[address] [facility] Comment on above: Result Comment: Reported eGFR is based on the CKD-EPI 2020 equation that does not use a race coefficient. Performed By: #### 2 6449-9, 49322-6, HA1C, IMGB, 76435-2, CBC, THYR, 6771-0, 2132-03 #### [facility] ([id number]) [address] [facility], [address] [place] [address] #### 99090-4 #### [facility] ([id number]) [address] [place] [address] 23102 Glucose [Mass/Vol] 128 mg/dL High 65-99 [facility] Comment on above: Performed By: #### 2 6449-9, 36394-6, HA1C, IMGB, 05710-7, CBC, THYR, 6771-0, 2132-03 #### [facility] ([id number]) [address] [facility], [address] [place] [address] #### 19693-8 #### [facility] ([id number]) [address] [place] [address] 96617 Potassium [Moles/Vol] 4.2 mmol/L Normal 3.5-5.0 [facility] Comment on above: Performed By: #### 2 6449-9, 80876-4, HA1C, IMGB, 47530-9, CBC, THYR, 6771-0, 2132-03 #### [facility] ([id number]) [address], [address] [place] [address] #### 48915-4 #### [facility] ([id number]) [address] [place] [address] 31325 Protein [Mass/Vol] 7.4 g/dL Normal 6.0-8.0 [facility] Comment on above: Performed By: #### 2 6449-9, 52172-8, HA1C, IMGB, 06977-7, CBC, THYR, 6771-0, 2132-03 #### [facility] ([id number]) [address], [address] [place] [address] #### 37051-4 #### [facility] ([id number]) [address] [place] [address] 95140 Sodium [Moles/Vol] 138 mmol/L Normal 134-146 [facility] Comment on above: Performed By: #### 2 6449-9, 75300-9, HA1C, IMGB, 24595-4, CBC, THYR, 6771-0, 2132-03 #### [facility] ([id number]) [address], [address] [place] [address] #### 39777-2 #### [facility] ([id number]) [address] [place] [address] 93209 Urea nitrogen [Mass/Vol] 10 mg/dL Normal 5-[address] [facility] Comment on above: Performed By: #### 2 6449-9, 48011-5, HA1C, IMGB, 85660-3, CBC, THYR, 6771-0, 2132-03 #### [facility] ([id number]) [address], [address] [place] [address] #### 76167-5 #### [facility] ([id number]) [address] [place] [address] 59696 Lipid 1996 panelon 4 Cholesterol [Mass/Vol] 137 mg/dL Low 150-[address] [facility] Comment on above: Performed By: #### 2 6449-9, 33361-9, HA1C, IMGB, 18622-7, CBC, THYR, 6771-0, 2132-03 #### [facility] ([id number]) [address] [place] [address], [address] [place] [address] #### 80684-0 #### [facility] ([id number]) [address] [place] [address] 20921 Cholesterol in HDL [Mass/Vol] 48 mg/dL Normal >[address] [facility] Comment on above: Result Comment: HDL <40 mg/dL - High Risk HDL > or = 40mg/dL- Desirable HDL >60 mg/dL - Negative Risk Performed By: #### 2 6449-9, 20099-9, HA1C, IMGB, 06551-2, CBC, THYR, 6771-0, 2132-03 #### [facility] ([id number]) [address] [place] [address], [address] [place] [address] #### 88471-0 #### [facility] ([id number]) [address] [place] [address] 28961 Cholesterol in LDL [Mass/Vol] 62 mg/dL Normal <[address] [facility] Comment on above: Result Comment: LDL <100 mg/dL - Desirable LDL >160 mg/dL - High Risk Performed By: #### 2 6449-9, 68023-8, HA1C, IMGB, 99040-0, CBC, THYR, 6771-0, 2132-03 #### [facility] ([id number]) [address], [address] [place] [address] #### 14854-1 #### [facility] ([id number]) [address] [place] [address] 87603 Cholesterol in VLDL [Mass/Vol] 27 mg/dL Normal 0-[address] [facility] Comment on above: Performed By: #### 2 6449-9, 17554-0, HA1C, IMGB, 46335-0, CBC, THYR, 6771-0, 2132-03 #### [facility] ([id number]) [address], [address] [place] [address] #### 87377-1 #### [facility] ([id number]) [address] [place] [address] 45734 CHOLESTEROL:HDL 2.9 Normal 1.0-5.[address] [facility] Comment on above: Performed By: #### 2 6449-9, 51238-3, HA1C, IMGB, 88930-9, CBC, THYR, 6771-0, 2132-03 #### [facility] ([id number]) [address], [address] [place] [address] #### 01178-6 #### [facility] ([id number]) [address] [place] [address] 73694 Triglyceride [Mass/Vol] 136 mg/dL Normal 27-[address] [facility] Comment on above: Performed By: #### 2 6449-9, 20592-6, HA1C, IMGB, 40297-1, CBC, THYR, 6771-0, 2132-03 #### [facility] ([id number]) [address] [facility], [address] [place] [address] #### 18496-9 #### [facility] ([id number]) [address] [place] [address] THYROID PROFILEon 12-13-2023 Free T4 [Mass/Vol] 1.01 ng/dL Normal 0.61-1.60 [facility] Comment on above: Performed By: #### 2 6449-9, 52314-0, HA1C, IMGB, 41290-5, CBC, THYR, 6771-0, 2139 #### [facility] ([id number]) [address] [facility], [facility] [address] [place] [address] #### 03125-2 #### [facility] ([id number]) [address] [place] [address] 48619 TSH 1.81 uIU/mL Normal 0.49-4.[address] [facility] Comment on above: Performed By: #### 2 6449-9, 22307-1, HA1C, IMGB, 56596-4, CBC, THYR, 6771-0, 9 #### [facility] ([id number]) [address] [facility], [facility] [address] [place] [address] #### 15475-5 #### [facility] ([id number]) [address] [place] [address] 22459 XR CHEST 2 VWSon 12-13-2023 XR CHEST [...] Rogers MD on 12/13/2023 2:14 PM Normal [facility] H PYLORI SCREENon 11-20-2023 H. pylori Org specific cx Ql (Ashwini fld) Negative Normal NEG [facility] Comment on above: Performed By: #### 2 6449-9, 64400-6, HA1C, IMGB, 46490-8, CBC, THYR, 6771-0, 2132-9 #### [facility] ([id number]) [address] [place] [address], [address] [place] [address] #### 52894-3 #### [facility] ([id number]) [address] [place] [address], [place] [address] Surgical Pathologyon 024 Surgical Pathology Normal [facility] Comment on above: Result Comment: [facility] [address] [place] [address] 19599 Surgical Pathology Consultation Patient Name:RAYA GONZALES:1980 (Age: 43)Gender:FTaken:11/20/2023eported:11/22/2023hysician(s):Marlon Tillman D.O. ([phone])Copy To: Rec. #:[id number]: #[id number] Final Pathologic Diagnosis 1. Duodenal biopsies: Normal [...] and hyperplastic polyps. Report Electronically Signed Out ssi/11/22/2023Surendra P. Sahu, M.D. Interpretation performed at [facility], [address] [facility], [place] [address], License number: [id number]. Clinical History GERD/rectal bleed. 4. Snared a polyp. 5. Snared a polyp. 6. Snared polyps x3. Gross Description 1. Received in formalin labeled [place], duodenum BX are two light robles soft tissue bits, 0.2 cm each. The specimen is filtered and entirely submitted in a single cassette. (1, ns, [id number],m8) DM. 2. Received in formalin labeled [place], antrum BX are two light robles soft tissue bits, 0.3 and 0.4 cm. The specimen is filtered and entirely submitted in a single cassette. (1, ns, [id number],m8) DM. 3. Received in formalin labeled [place], distal esophagus BX are four light robles soft tissue bits, 0.1-0.2 cm. The specimen is filtered and entirely submitted in a single cassette. (1, ns, [id number],m8) DM. 4. Received in formalin labeled [place], hepatic flexure polyp are four light robles feathery soft tissue bits, 0.1-0.5 cm. The specimen is filtered and entirely submitted in a single cassette. (1, ns, [id number],m8) DM. 5. Received in formalin labeled [place], descending colon polyp are two light robles soft tissue bits, 0.1 and 0.6 cm. The specimen is filtered and entirely submitted in a single cassette. (1, ns, [id number],m8) DM. 6. Received in formalin labeled [place], sigmoid colon polyp are five light robles soft tissue bits, 0.2-0.4 cm. The specimen is filtered and entirely submitted in a single cassette. (1, ns, [id number],m8) DM. dm/11/21/2023NSK Specimen(s) Received 1: Duodenum biopsy 2: Antrum biopsy 3: Distal esophageal biopsy 4: Hepatic flexure polyp 5: Descending colon polyp 6: Sigmoid colon polyp Fee Codes(s): 1; 19404 2; 93564 3; 31807, 3126F 4; 66128 5; 14952 6; 19721 [facility] 02-01-2022 [facility] Telephone (JO ANNJK) RAYA GONZALES ([id number]) 1980 F Date Time Provider Department 02/01/22 [...] Encounter Status:Closed by [facility] ARCE on 02/10/22 [facility] ERRONEOUSENCon 02-01-2022 ERRONEOUSENC [id number] Tia Gonzales 1980 F * Clinical document posted in Error * Encounter Type Conversion History User Instant Changed From Changed To MARY WALDEN Feb 10, 2022 3* Telephone Erroneous* [facility] Vital Signs Date Time Vital Sign Value Performing Clinician Facility 12-24-2024 14:36-0400 Body height 162.6 cm Chin Edward MD Work Phone: [employer] 12-24-2024 14:36-0400 Body mass index (BMI) [Ratio] 42.74 kg/m2 Chin Edward MD Work Phone: [employer] 12-24-2024 14:36-0400 Body weight 112.95 kg [facility] 12-24-2024 14:36-0400 Diastolic blood pressure 75 mm[Hg] Chin Edward MD Work Phone: [facility] 12-24-2024 14:36-0400 Heart rate 71 /min Chin Edward MD Work Phone: [facility] 12-24-2024 14:36-0400 Systolic blood pressure 147 mm[Hg] Chin Edward MD Work Phone: [facility] 10-08-2024 14:16-0400 Body height 162.6 cm Elvi Bustamante MD Work Phone: [facility] 10-08-2024 14:16-0400 Body mass index (BMI) [Ratio] 45.76 kg/m2 Elvi Bustamante MD Work Phone: [facility] 10-08-2024 14:16-0400 Body weight 120.93 kg Elvi Bustamante MD Work Phone: [facility] 10-08-2024 14:16-0400 Diastolic blood pressure 84 mm[Hg] Elvi Bustamante MD Work Phone: [facility] 10-08-2024 14:16-0400 Systolic blood pressure 132 mm[Hg] Elvi Bustamante MD Work Phone: [facility] 09-03-2024 13:36-0500 Body height 162.6 cm [facility] 09-03-2024 13:36-0500 Body mass index (BMI) [Ratio] 45.32 kg/m2 [facility] 09-03-2024 13:36-0500 Body weight 119.75 kg [facility] 07-30-2024 13:03-0500 Body height 162.6 cm Elvi Bustamante MD Work Phone: [facility] 07-30-2024 13:03-0500 Body mass index (BMI) [Ratio] 46.59 kg/m2 Elvi Bustamante MD Work Phone: [facility] 07-30-2024 13:03-0500 Body weight 123.11 kg Elvi Bustamante MD Work Phone: [facility] 07-30-2024 13:03-0500 Diastolic blood pressure 102 mm[Hg] Elvi Bustamante MD Work Phone: [facility] 07-30-2024 13:03-0500 Systolic blood pressure 158 mm[Hg] Elvi Bustamante MD Work Phone: [facility] 11-17-2023 13:49-0400 Body height 162.6 cm Yojana Phan MD PhD Work Phone: [facility] 11-17-2023 13:49-0400 Body mass index (BMI) [Ratio] 47.89 kg/m2 Yojana Phan MD PhD Work Phone: [facility] 11-17-2023 13:49-0400 Body weight 126.55 kg Yojana Phan MD PhD Work Phone: [facility] 11-17-2023 13:49-0400 Diastolic blood pressure 88 mm[Hg] Yojana Phan MD PhD Work Phone: [facility] 11-17-2023 13:49-0400 Heart rate 90 /min Yojana Phan MD PhD Work Phone: [facility] 11-17-2023 13:49-0400 Respiratory rate 20 /min Yojana Phan MD PhD Work Phone: [facility] 11-17-2023 13:49-0400 Systolic blood pressure 138 mm[Hg] Yojana Phan MD PhD Work Phone: [facility] Encounters Encounter Date Encounter Type Care Provider Facility Start: 12-24-2024 End: 12-24-2024 Office outpatient visit 40 minutes [facility] [place] Comment on above: Intractable migraine with status migrainosus, unspecified migraine type (Primary Dx); 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); White matter disease, unspecified; Primary hypertension; Smoking addiction; Choledocholithiasis; Obesity, morbid, BMI 40.0-49.9 ([facility] HENNA (generalized anxiety disorder); Depression, unspecified depression type; Type 2 diabetes mellitus with diabetic cataract, unspecified whether [facility] insulin use ([facility]); Gastroesophageal reflux disease, unspecified whether esophagitis present; Excessive daytime sleepiness; 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 Start: 12-24-2024 End: 12-24-2024 [facility] Start: 12-16-2024 End: 12-17-2024 [facility] Start: 12-13-2024 End: 12-14-2024 [facility] Result Encounter Arnold MACIEL Work Phone: [facility] External Department Unsolicited Start: 12-13-2024 End: 12-14-2024 [facility] Result Encounter Arnold MACIEL Work Phone: [facility] External Department Unsolicited Start: 10-18-2024 End: 10-18-2024 ambulatory [facility] Start: 10-08-2024 End: 10-08-2024 Office outpatient visit 15 minutes Elvi Bustamante MD Work Phone: [facility] Comment on above: DUB (dysfunctional u terine bleeding) (Primary Dx) Start: 10-08-2024 End: 10-08-2024 [facility] Start: 09-09-2024 End: 09-09-2024 Evaluation and management of inpatient ALLISON BETANCOURT [facility] Start: 09-09-2024 End: 09-09-2024 Evaluation and management of inpatient ELVI BUSTAMANTE [facility] Start: 09-03-2024 End: 09-03-2024 Patient encounter procedure Pm Pre-Admission Testing 1 [facility] - Pre Admit Comment on above: Preop examination (P rimary Dx); Obesity, morbid, BMI 40.0-49.9 ([facility] [place] Asthma, unspecified asthma severity, unspecified whether complicated, unspecified whether persistent Start: 09-03-2024 End: 09-03-2024 Preprocedural examination done Pm 1 [facility] Start: 09-03-2024 End: 09-03-2024 ambulatory ALLISON Peterson SERAFIN [facility] Start: 09-03-2024 Encounter for other preprocedural examination [facility] Start: 08-05-2024 End: 08-05-2024 Telephone encounter Elvi Bustamante MD Work Phone: [place] [facility] Start: 07-30-2024 End: 07-30-2024 Office outpatient visit 15 minutes Elvi Bustamante MD Work Phone: [facility] Comment on above: DUB (dysfunctional u terine bleeding) (Primary Dx) Start: 07-30-2024 End: 08-01-2024 ambulatory [facility] Start: 07-15-2024 End: 07-15-2024 ambulatory [facility] Start: 07-15-2024 End: 07-15-2024 ambulatory [facility] Start: 07-09-2024 End: 07-09-2024 ambulatory [facility] Start: 06-24-2024 End: 06-24-2024 ambulatory [facility] Start: 06-21-2024 End: 06-21-2024 Emergency department patient [facility] Start: 06-19-2024 End: 06-19-2024 ambulatory [facility] Start: 06-19-2024 Encounter for gynecological examination (general) (routine) without abnormal findings [facility] Start: 06-19-2024 End: 06-19-2024 ambulatory [facility] Start: 06-19-2024 Encounter for gynecological examination (general) (routine) without abnormal findings [facility] Start: 06-17-2024 End: 06-17-2024 ambulatory [facility] Start: 06-12-2024 End: 06-12-2024 ambulatory GISELA CORDOVA [facility] Start: 06-12-2024 End: 06-12-2024 ambulatory [facility] Start: 05-31-2024 End: 05-31-2024 ambulatory [facility] Start: 03-05-2024 End: 03-05-2024 ambulatory [facility] Start: 02-27-2024 End: 02-27-2024 ambulatory ANDRES DUPONT [facility] Start: 01-30-2024 End: 01-31-2024 Emergency department patient visit [facility] Start: 01-30-2024 End: 01-30-2024 Emergency department patient visit [facility] Start: 01-30-2024 End: 01-31-2024 Emergency department patient visit DOTHAN [facility] Start: 01-26-2024 End: 01-26-2024 ambulatory [facility] Start: 01-23-2024 End: 01-23-2024 ambulatory [facility] Start: 01-03-2024 End: 01-04-2024 Emergency department patient visit CHARLIE YOUNG [facility] Start: 01-02-2024 End: 01-04-2024 ambulatory [facility] Start: 01-02-2024 End: 01-04-2024 Subsequent hospital visit by physician Mth Ultrasound Room [facility] Ultrasound Comment on above: RUQ abdominal pain Start: 12-26-2023 End: 12-26-2023 ambulatory [facility] Start: 12-13-2023 End: 12-13-2023 ambulatory [facility] Start: 11-21-2023 End: 11-21-2023 Evaluation and management of inpatient LILY CADET [facility] Start: 11-20-2023 End: 11-21-2023 Evaluation and management of inpatient MARLON TILLMAN [facility] Start: 11-17-2023 End: 11-18-2023 ambulatory YOJANA PHAN [facility] Start: 11-17-2023 End: 11-17-2023 Office outpatient new 60 minutes Yojana Phan MD PhD Work Phone: [facility] Comment on above: Polyneuropathy (Prim brianna Dx); Vertigo; Balance problem; Cataract of right eye, unspecified cataract type; Multiple sclerosis (Multi) Start: 11-14-2023 End: 11-14-2023 ambulatory SEVEN MENDES [facility] Procedures Date Procedure Procedure Detail Performing Clinician Start: 12-13-2024 ECG 12-LEAD Arnold MACIEL Work Phone: Start: 06-19-2024 Adult depression scr eening assessment Elvi Bustamante MD Work Phone: Start: 06-19-2024 Microscopic observat ion [Identifier] in Cervix by Cyto stain Elvi Bustamante MD Work Phone: Start: 05-31-2024 Follow-up visit Follow-up NAVI ZAPIEN Start: 03-05-2024 Mammography Elvi Nguyen ch, MD Work Phone: Start: 01-02-2024 Us abdominal real ti me w/image limited Adeline Florentino 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 Work Phone: Start: 11-20-2023 Colonoscopy Elvi Nguyen ch, MD Work Phone: Plan of Treatment Date Care Activity Detail Author Start: 2041 RSV patient s and/or patients aged 60+ years (1 - 1-dose 60+ series) RSV patients and/or patients aged 60+ years (1 - 1-dose 60+ series) [facility] Start: 2031 Zoster Vaccines (1 of 2) Zoster Vacc esvin (1 of 2) [facility] Start: 11-19-2028 Screening for malign ant neoplasm [facility] Start: 11-20-2027 Screening for malign ant neoplasm of cervix Pap Smear [facility] Start: 12-24-2025 Adult BMI Screening Adult BMI Screen ing [facility] Start: 12-24-2025 Tobacco Screening Tobacco Screening [facility] Start: 09-09-2025 Adult BMI Screening Adult BMI Screen ing [facility] Start: 09-03-2025 Adult BMI Screening Adult BMI Screen ing [facility] Start: 09-03-2025 Tobacco Screening Tobacco Screening [facility] Start: 07-30-2025 Adult BMI Screening Adult BMI Screen ing [facility] Start: 07-30-2025 Tobacco Screening Tobacco Screening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
[2025-03-21] MEDS: LIDOCAINE 5% PATCH 1 PATCH TOPICAL (13:46)
[2025-03-21] MEDS: HYDROCODONE/ACET 5-325 MG TABLET 2 TAB PO (13:46)
[2025-03-21] MEDS: IBUPROFEN 600 MG TABLET PO (13:46)
[2025-03-21 14:37] VITALS: PULSE 87; O2SAT 98
--- NOTE | 2025-03-22 08:09 | ED.GENADUL1 ---
HPI HPI - General Adult General Chief complaint: Extremity Problem, Nontraumatic Stated complaint: LOWER EXTREMITY PAIN Time Seen by Provider: 03/21/25 13:07 Source: patient Mode of arrival: walk-in Limitations: no limitations History of Present Illness HPI narrative: Patient is a 45-year-old female, history significant for previous episodes of sciatica, presenting to the emergency department for concerns of right lower extremity pain. Patient states the pain started approximately 2 months ago. She states the pain was initially intermittent, but now has gotten progressively worse and is persistent. She states it is located in her right buttock and radiates down to her right knee. She is taking Tylenol for the pain, however this is not significantly helped. She denies any falls or injuries over the last 2 months. She denies any loss of bladder/bowel function. She denies any numbness/tingling in the perineum or lower extremities. She denies any weakness in lower extremities. She denies any difficulty with her gait/ambulation. She denies history of IVDU, fevers, or history of cancer. She states she has needed prior burning up of my nerves in her back for sciatica in the past. Related Data Home Medications ?Medication ?Instructions ?Recorded ?Confirmed metformin 500 mg tablet,extended 500 mg PO DAILY 08/08/24 03/21/25 release 24 hr omeprazole 40 mg capsule,delayed 40 mg PO BID 08/08/24 03/21/25 release ondansetron 8 mg disintegrating 8 mg PO BID PRN nausea and vomiting 10/20/24 03/21/25 tablet buspirone 10 mg tablet 10 mg PO BID 03/21/25 03/21/25 escitalopram oxalate 10 mg tablet 10 mg PO DAILY 03/21/25 03/21/25 hydroxyzine pamoate 50 mg capsule 50 mg PO TID 03/21/25 03/21/25 topiramate 50 mg tablet 50 mg PO DAILY 03/21/25 03/21/25 Allergies Allergy/AdvReac Type Severity Reaction Status Date / Time promethazine (From Phenergan) Allergy Severe Confusion Verified 08/12/24 07:29 Opioid HPI Opioid Management Most Recent Opioid Data: Last Pain Scale 10 03/21/25, 13:04 Last ORT Total Score 9 12/13/24, 17:54 Last ORT Risk Category High Risk 12/13/24, 17:54 Review of Systems ROS Status of ROS 10 or more systems reviewed and unremarkable except as noted in history and below [facility] Medical History (Updated 03/21/25 @ 14:29 by Jaydon Lennon DO) Intractable migraine without aura and with status migrainosus ?G43.011 - Migraine without aura, intractable, with status migrainosus (ICD-10) Intractable headache ?R51.9 - Headache, unspecified (ICD-10) GERD (gastroesophageal reflux disease) ?K21.9 - Gastro-esophageal reflux disease without esophagitis (ICD-10) Diabetes ?E11.9 - Type 2 diabetes mellitus without complications (ICD-10) Surgical History (Updated 12/13/24 @ 17:51 by Mag Romo) History of cholecystectomy ?Z90.49 - Acquired absence of other specified parts of digestive tract (ICD-10) History of section ?Z98.891 - History of uterine scar from previous surgery (ICD-10) Family History (Updated 12/13/24 @ 17:52 by Danyell Lloyd) Grandmother Family history of myocardial infarction Family history of stroke Family history of hypertension Family history of diabetes mellitus Grandfather Family history of diabetes mellitus Family history of hypertension Family history of cancer Family history of COPD (chronic obstructive pulmonary disease) Mother Family history of diabetes mellitus Family history of hypertension Social History (Updated 12/13/24 @ 17:54 by Danyell Lloyd) Within the past year, how often did you have a drink containing alcohol: never Within the past year, how often did you have six or more drinks on one occasion: never Score interpretation: A score less than 3 is consistent with normal alcohol consumption. Smoking status: Current every day smoker Second hand tobacco smoke exposure: Yes Non-prescribed substance use: denies use Previous occupational history: [employer] Known occupational exposures/hazards: No Highest level of school completed/degree received: 9th grade Do you want help with school or training: No Are you now , , , , never or living with a partner: How often do you get together with friends or relatives: never How often do you attend denominational or lutheran services: never Do you belong to any clubs or organizations such as denominational groups unions, fraternal or athletic groups, or school groups: no Total score: 1 Score interpretation: A score of less than or equal to 1 indicates the most socially isolated. Little interest or pleasure in doing things: not at all Feeling down, depressed, or hopeless: not at all Feel stressed/tense/nervous/anxious/difficulty sleeping: only a little Due to disability, difficulty making decisions: No Do you think of yourself as: straight/heterosexual Gender Identity: female Exam Narrative Exam Narrative: CONSTITUTIONAL: Appears mildly uncomfortable secondary to right lower extremity pain, answering questions and following commands appropriately SKIN: Was warm and dry, no rashes on the back or right lower extremity. EYES: No scleral icterus EARS, NOSE, THROAT: Moist oral mucosa RESPIRATORY: Clear to auscultation bilaterally, no wheezes, crackles, or stridor, no use of accessory muscles CARDIOVASCULAR: Normal rate and regular rhythm. There is no S3, S4, murmur, rub. Dorsalis pedis pulses are 2+ and symmetrical. GASTROINTESTINAL: Abdomen is nondistended MUSCULOSKELETAL: The right lower extremity appears grossly normal. There is no midline L-spine tenderness. No significant tenderness to palpation about the major muscle groups of the right lower extremity. She has full range of motion with hip flexion/extension, knee flexion/extension. She is able to ambulate with a steady gait. There is a positive straight leg raise test on the right. There is no peripheral edema or calf tenderness. NEUROLOGIC: Patient is awake and alert. 5/5 strength in the bilateral lower extremities. Sensation intact light touch in the bilateral lower extremities. Equal strength in all extremities. Constitutional Vital Signs, click to edit/add: Last Vital Signs Temp 98.1 F 03/21/25 13:00 Pulse 87 03/21/25 14:37 Resp 20 03/21/25 14:37 BP 133/96 H 03/21/25 13:00 Pulse Ox 98 03/21/25 14:37 O2 Del Method Room Air 03/21/25 14:37 Course Vital Signs Vital signs: Vital Signs Temperature 98.1 F 03/21/25 13:00 Pulse Rate 98 H 03/21/25 13:00 Respiratory Rate 20 03/21/25 13:00 Blood Pressure 133/96 H 03/21/25 13:00 Pulse Oximetry 99 03/21/25 13:00 Oxygen Delivery Method Room Air 03/21/25 13:00 Temperature 98.1 F 03/21/25 13:00 Pulse Rate 87 08/22/25 14:37 Respiratory Rate 20 03/21/25 14:37 Blood Pressure 133/96 H 03/21/25 13:00 Pulse Oximetry 98 03/21/25 14:37 Oxygen Delivery Method Room Air 03/21/25 14:37 Medical Decision Making MDM Narrative Medical decision making narrative: Patient is a 45-year-old female, history significant for previous episode of sciatica, presenting to the emergency department for 2 months of right lower extremity pain from the buttocks to the right knee. Vital signs on arrival are within normal limits. She is afebrile and hemodynamically stable. Examination as noted above. She has good strength, sensation, and distal perfusion in the right lower extremity. She has good range of motion in the RLE and ambulates with a steady gait. The extremities are neurovascularly intact. There is no midline L-spine tenderness. My differential diagnoses include sciatica, lumbar radiculopathy, or musculoskeletal strain/sprain. She has no red flag signs to suggest cauda equina syndrome/spinal cord compression - no loss of bladder/bowel function, no urinary retention, sensory deficits, or motor weakness. No history of trauma to suggest a vertebral fracture. She has no history of cancer to suggest metastatic disease. No history of IV drug use or fevers to suggest spinal epidural abscess. I do not believe any imaging is required at this time. She was treated symptomatically with oral [place], Motrin, and a Lidoderm patch. On reevaluation, patient states she feels significantly improved. She walked over to the nurses station and is requesting to be discharged. I did instruct the patient to follow-up with her PCP in the next 5 days for further care. She may benefit from PT and/or MRI in the outpatient setting. She is instructed to take NSAIDs for the next 2 weeks for further pain control. Return precautions were given including any new or concerning symptoms - including LE weakness, sensory deficits, or bladder/bowel function issues. Patient understands and agrees to plan. FINAL IMPRESSION: Acute right lower extremity pain, likely lumbar radiculopathy DISPOSITION: Discharged home CONDITION: Good Discharge Plan Discharge Chief Complaint: Extremity Problem, Nontraumatic Clinical Impression: Acute lumbar radiculopathy Patient Disposition: Home, Self-Care Time of Disposition Decision: 14:29 Condition: Good Mode of Transportation: Private Vehicle Prescriptions / Home Meds: No Action buspirone 10 mg tablet 10 mg PO BID escitalopram oxalate 10 mg tablet 10 mg PO DAILY hydroxyzine pamoate 50 mg capsule 50 mg PO TID topiramate 50 mg tablet 50 mg PO DAILY metformin 500 mg tablet extended release 24 hr 500 mg PO DAILY omeprazole 40 mg capsule,delayed release(DR/EC) 40 mg PO BID ondansetron 8 mg tablet,disintegrating 8 mg PO BID PRN (Reason: nausea and vomiting) Print Language: Citizen [place] Instructions: Acute Low Back Pain (ED) Referrals: Akilah Bowden 3D ARTIST [Primary Care Provider] - 1 week Discharge Date/Time: 03/21/25 14:40
== END 2025-03-21 14:40 | disposition home or self-care (01) ==
PROVIDERS: Emergency Provider Student in an Organized Health Care Education/Training Program; PCP Nurse Practitioner
DX: M54.16 Radiculopathy, lumbar region (principal); Z90.49 Acquired absence of other specified parts of digestive tract; F17.200 Nicotine dependence, unspecified, uncomplicated
CPT/HCPCS: 99284